=== PATIENT | female | born 1955 | race Caucasian/White ===

== ENCOUNTER → 2017-11-18 17:47 | Outpatient (CLI) | payer MEDICAID, SELFPAY ==
[2017-11-18 18:44] LABS: Amphetamine Urine VISTA NEGATIVE (<1000 ng/mL); Barbiturate Urine VISTA NEGATIVE (< 200 ng/mL); Benzodiazepine Urine VISTA NEGATIVE (< 200 ng/mL); Cocaine Urine VISTA NEGATIVE (< 300 ng/mL); Ecstacy Urine VISTA NEGATIVE (< 500 ng/mL); Methadone Urine VISTA NEGATIVE (< 300 ng/mL); PCP Urine VISTA NEGATIVE (< 25 ng/mL); THC Urine VISTA POSITIVE (< 50 ng/mL); Vista UDS pH Range 6
== END ==
PROVIDERS: Family Provider Internal Medicine; PCP Internal Medicine; Visit Provider Anesthesiology Pain Medicine
DX: F11.20 Opioid dependence, uncomplicated (principal)
CPT/HCPCS: 80307

== ENCOUNTER → 2018-11-03 16:26 | Outpatient (CLI) | payer MEDICAID, SELFPAY ==
--- NOTE | 2018-11-03 16:35 | RAD_ITS ---
HISTORY: right knee pain, no known injury COMPARISON: None FINDINGS: XR right knee 5 views No fracture, acute disease, or bony abnormality. Joint spaces appear preserved. No bony erosions. No joint effusion. Atherosclerotic calcifications at the right femoral adductor canal region. RAD/Knee 4 or More Views IMPRESSION: Atherosclerotic calcifications. Otherwise negative right knee. at 1551 Reported and signed by: Gordon Durham MD Electronically Signed: Gordon Durham, at 5:29 EST Tel , Service support ,
== END ==
PROVIDERS: Family Provider Internal Medicine; PCP Internal Medicine; Referring Provider Anesthesiology Pain Medicine; Visit Provider Anesthesiology Pain Medicine
DX: M25.561 Pain in right knee (principal)
CPT/HCPCS: 73564

== ENCOUNTER 2018-12-19 12:05 | Day surgery (SDC) | payer MEDICAID, SELFPAY ==
--- NOTE | 2018-12-16 14:39 | HP.PCM_ITS ---
History and Physical Date of Admission: 12/19/18 HISTORY AND PHYSICAL ? Henny Damian 1955 ? REFERRING PHYSICIAN: ??Sugey Owen (Madhu), A* ? CHIEF COMPLAINT:??Discuss endoscopy ? HPI: The patient is a 62 year old female referred for endoscopy. ?Henny notes a history of hemorrhoids for which she has undergone banding procedures in the past, otherwise noted?no history of colon complaints.??She denies any change in bowel habits, weight changes, blood in stools, black tarry stools or abdominal pain. ?She denies any family history of colon cancer. ?Patient's previous colonoscopy report from June 2009 is reviewed. ?She had a small hyperplastic polyp removed at that time and 10 year follow-up was recommended. ?The patient is interested in having her colonoscopy in October before her insurance changes, but notes she has not checked to see if her insurance will cover this being done several months early. ? The patient?notes a long-standing history of acid reflux, states has dealt with this for many years. ?She takes ranitidine and states this controls her symptoms fairly well. ?Patient does use tobacco, states smokes 1/2 pack of cigarettes daily. ?She denies having upper endoscopy in the past. ? Patient's past medical history is significant for chronic pain, follows with pain management. ? ? Patient was evaluated for the above recently by gastroenterology. ?She notes she was told to have an additional appointment with general surgery and to schedule the procedures at that time. ? ? PAST?MEDICAL?HISTORY w PAST MEDICAL HISTORY Diagnosis Date ? Depression ? ? GERD (gastroesophageal reflux disease) ? ? Hayfever ? ? Hemorrhoid ? ? ? PAST?SURGICAL?HISTORY PAST SURGICAL HISTORY Procedure Laterality Date ? , CLASSIC, ANTE/POST CA ? 1994 ? COLONOS W/REM POLYP SNARE ? ? polyp at 25cm ? HEMORRHOIDECTOMY,INT/EXT,COMPLX ? 03/06/10 ? PAST SURGICAL HISTORY OF ? Late ? Hernia repair ? PAST SURGICAL HISTORY OF ? 2011 ? polyp vocal cord ? THROAT SURGERY PROCEDURE UNLISTED ? 12/27/12 ? polyp vocal cord ? TOTAL ABDOM HYSTERECTOMY ? 1997 ? RIVER & LSO - benign indication (endometrial implants) - 1997 ? X-RAY LUMBAR SPINE AP & LAT ? 08/28/15 ? wch-degenerative changes ? ? CURRENT?MEDICATIONS ? Current Outpatient Prescriptions: naproxen (NAPROSYN) 500 mg tablet take 1 tablet by mouth twice a day if needed for pain and inflammation take with meals traZODone (DESYREL) 100 mg tablet take 1 tablet by mouth at bedtime ranitidine (ZANTAC) 150 mg tablet take 1 tablet by mouth twice a day tiZANidine (ZANAFLEX) 4 mg tablet Take 1 tablet by mouth every 8 hours as needed (muscle spasms). pravastatin (PRAVACHOL) 10 mg tablet Take 1 tablet by mouth once daily. citalopram (CELEXA) 40 mg tablet Take 1 tablet by mouth once daily. (Patient not taking: Reported on 09/16/2018 ) acetaminophen (TYLENOL) 325 mg tablet Take 650 mg by mouth every 6 hours as needed. traMADol (ULTRAM) 50 mg tablet Take 1 tablet by mouth every 4 hours as needed for Pain. ? No current facility-administered medications for this visit.? ? ALLERGIES:?Doxycycline Hcl ? PERSONAL HISTORY:? SOCIAL?HISTORY Social History ??Marital status: ?Spouse name: ?Years of education: 12 ?Number of children: 1 ? Occupational History Occupation ?Employer ?Comment ?[employer] ??? MAID ?[employer] ? Social History Main Topics ??Smoking status: Current Every Day Smoker ?Packs/day: 0.50 ?Years: 30.00 ?Types: Cigarettes ??Smokeless tobacco: Never Used ?Alcohol use: No ?Drug use: No ?Sexual activity: Not Currently ? FAMILY HISTORY:? FAMILY?HISTORY FAMILY HISTORY Problem Relation Age of Onset ? Diabetes Mother ? ? other (IA) Mother ? ? other (IA) Father ? ? COPD Sister ? ? Emphysema Sister ? ? REVIEW OF SYMPTOMS: ??The review of systems data was entered by the nurse and reviewed by me ? Nursing Notes: Cesar Virgen LPN ?09/20/2018 ?7:30 AM ?Signed REVIEW OF SYSTEMS: ?General:???The patient denies fatigue, denies weight loss, denies weight gain, denies feeling hot, and denies feelings of cold. ?Eyes: ?The patient denies glaucoma, denies eye injury/surgery, does not wear glasses or contacts. ?Ear/Nose/Throat: ?The patient denies allergies, NOTES hayfever, denies ear infections, and denies bloody noses. ?Cardiovascular: ?The patient denies chest pain, denies heart disease, denies high blood pressure,denies cardiac stent, denies prior heart attack, denies irregular heart beat, NOTES high cholesterol, ?denies poor circulation, denies heart failure, other cardiac issues, denies claudication, denies cold feet, denies peripheral arterial stent. ?Respiratory: ?The patient denies tuberculosis, denies pneumonia, denies frequent cough, denies pulmonary embolism, denies shortness of breath, and denies coughing up blood. ?Gastrointestinal: ?The patient denies difficulty swallowing, NOTES acid reflux, denies ulcers, denies vomiting, denies jaundice/hepatitis, denies gallbladder problems, denies black or tarry stools, NOTES hemorrhoids, denies bleeding from rectum, denies diverticulitis, denies constipation, denies diarrhea, denies loss of stool control, and NOTES hernias. ?Kidney/Bladder: ?The patient denies kidney stones, denies urine infections, and denies bloody urine. ?Skin: ?The patient denies a history of skin cancer, denies bleeding/changing moles, and denies a history of skin rash. ?Neurologic: ?The patient denies a history of epilepsy/convulsions, denies headaches, denies head/spinal injuries, and denies stroke/TIA. ?Psychiatric: ?The patient denies psychiatric medications, NOTES depression, and denies voices, denies substance abuse. ?Endocrine: ?The patient denies thyroid disorders, denies diabetes, and denies hormonal problems. ?Hematologic: ?The patient denies a history of bruising, denies bleeding, and denies anemia, denies blood clots. ?Infections: ?The patient denies a history of measles and mumps, denies rheumatic fever, and denies sexually transmitted diseases. ?Musculoskeletal: ?The patient denies back pain/injury, NOTES back problems, denies sciatica, denies knee/foot trouble, denies arthritis, or denies gout. ? ? When was patient's last Mammogram screening? 11/28 ? ?Last Colonoscopy: ?06/19 ? Cesar Virgen LPN? I have confirmed and edited as necessary, the PFSH and ROS obtained by others. ? ? PHYSICAL EXAMINATION: ? General: ?The patient is 62 year old female, well nourished, well hydrated in no acute distress. ?The patient is oriented to time, place, and person. ? VITALS:?There were no vitals taken for this visit.?There is no height or weight on file to calculate BMI.? ? HEENT: ?Normal cephalic, ataumatic, pupils are equally round, sclera are anicteric, mucous membranes are moist, oropharynx is clear. ?Neck has no masses, asymmetry or lymphadenopathy. ? ? Respiratory: ?Clear to auscultation and percussion. ?Normal respiratory excursion and pattern. ? Cardiac: ?Examination is regular rate and rhythm. ? Abdominal exam: ?Soft, nontender, ?with no palpable masses. ?No hepatosplenomegaly. ?No palpable hernias. ? Rectal exam:?exam deferred ? Extremities: ?no clubbing, cyanosis or edema. ?No adenopathy. ? LABORATORY VALUES: As Noted ? RADIOLOGIC STUDIES: ?As Noted ? ? Assessment ? IMPRESSION:?encounter for screening colonoscopy. ?GERD and abdominal bloating- recommend EGD in addition to colonoscopy ? PLAN:??We will plan for upper and lower endoscopy.??We discussed the risks and benefits of the planned endoscopy. ?I have informed the patient that compli cations can occur including failure to complete the endoscopy and perforation. ?The patient had the opportunity to ask questions concerning the planned endoscopy. ?My staff has also explained the procedure to the patient in understandable terms and has given the patient printed material concerning the procedure. ?The patient freely consents to surgery. ? I plan to use golytely bowel preparation for endoscopy ? I plan for monitored anesthetic care. ? Diagnoses:?(Z12.11) Encounter for screening for malignant neoplasm of colon ?(primary encounter diagnosis) (K21.9) Gastroesophageal reflux disease, esophagitis presence not specified (R14.0) Abdominal bloating ? My findings have been communicated to?Eunice Owen CNP?via shared medical record. ?This note will be forwarded to Dr. BROOK HORNER MD. ?? Return to Clinic: The patient is instructed to follow-up with me?1 week post operatively. ? ? Anisha Lindsey PA-C
[2018-12-19 12:29] VITALS: BP 141/58; PULSE 87; RESP 16; TEMP 36.3; O2SAT 97; BMI 24.0
--- NOTE | 2018-12-19 13:30 | EGD_PTH ---
PATIENT: JOVI HILL LOC: EN U#:[id number] AGE/SX: 63/F ROOM: RE12/19/[address]: Dr. Federico Hall MD : 1955 BED: DIS: 12/19/2018 SPEC #: [id number] RECD: 12/19/18 17:10 STATUS: STEPHON ASIYA #: [id number] GERALD: 12/19/18 13:[address]: Federico Hall DEPT: SURGICAL PATHOLOGY RECD BY: Ga Snow ENTERED: 12/20/18 07:56 SP TYPE: EGD BIOPSY OTHR DR: Dr. Toña Rai MD Tissues: A - Gastric mucous membrane B - Esophageal mucous membrane Procedures: Special Stain Group II Surgery Specimen Level IV Alcian Blue/PAS (control) HEADER OPERATION: Colonoscopy, EGD ([facility]) PRE-OP DIAGNOSIS: GERD, abdomen bloating, screening for colon TISSUE SUBMITTED: A - Antrum biopsy for H. pylori and path, B - Distal esophagus biopsy; esophagitis, rule out Jimenes's MICROSCOPIC DIAGNOSIS A. Antrum biopsy: Mild gastritis. See microscopic description and comment. B. Distal esophagus, biopsy: A fragment of gastroesophageal mucosa with changes consistent with gastroesophageal reflux disease and chronic inflammation. Intestinal metaplasia (goblet cell metaplasia) is not identified. See comment. SJ:rg 12/21/18 COMMENT A. The results of immunohistochemistry for Helicobacter pylori will be reported separately ([id number]). B. Alcian blue/PAS stain with matched control is used in the evaluation of the specimen. MICROSCOPIC DESCRIPTION Slides are reviewed. A. The specimen shows fragments of gastric mucosa with chronic inflammatory cell infiltrates in the lamina propria consisting of lymphocytes and plasma cells, consistent with mild chronic gastritis. GROSS DESCRIPTION A - Received in fixative is one container labeled with the patient's name and designated antrum biopsy. The specimen consists of one irregular fragment of light hernandez soft tissue that measures 0.3 x 0.2 x 0.1 cm. The specimen is totally submitted in one cassette. B - Received in fixative is one container labeled with the patient's name and designated distal esophagus biopsy. The specimen consists of one irregular fragment of light hernandez soft tissue that measures 0.3 x 0.3 x 0.1 cm. The specimen is totally submitted in one cassette. / MEHDI:jordy 12/20/18 TC:3 CPT: 56236 x2, 81022
--- NOTE | 2018-12-19 13:30 | IMM_PTH ---
PATIENT: JOVI HILL LOC: EN U#:[id number] AGE/SX: 63/F ROOM: RE12/19/[address]: Dr. Federico Hall MD : 1955 BED: DIS: 12/19/2018 SPEC #: [id number] RECD: 12/20/18 12:17 STATUS: STEPHON REQ #: [id number] GERALD: 12/19/18 13:[address]: Federico Hall DEPT: IMMUNOHISTOCHEMISTRY RECD BY: Marcia Hou ENTERED: 12/20/18 12:18 SP TYPE: IMMUNO OTHR DR: Dr. Toña Rai MD Tissues: A - Stomach, NOS Procedures: H Pylori (initial) PHYSICIAN & INSTITUTION [place] [id number] SPECIMEN INFORMATION: Tissue Source: A - Antrum biopsy Clinical Info: GERD, abdomen bloating, screening Specimen Number: [id number] CPT code: 16173 METHODOLOGY: Deparaffinized sections of prefer/formalin-fixed tissue or PAP/DQ stained slides are incubated with monoclonal/polyclonal antibodies/oligonucleotide probes. Localization is made via biotin free immunoperoxidase method. Appropriate controls are performed and reacted as expected. Results on target cell population are indicated in the following table: RESULTS: ANTIBODY / CLONE RESULT Block A H Pylori (polyclonal) negative These tests were developed and their performance characteristics determined by [facility]. They may not have been cleared or approved by the U.S. Food and Drug Administration. The FDA has determined that such clearance or approval is not necessary. INTERPRETATION: A. Antrum biopsy: Negative for Helicobacter pylori organisms. SJ:jordy 12/21/18
[2018-12-19 15:35] VITALS: BP 107/79; BP 141/58; PULSE 75; RESP 16; TEMP 36.2; O2SAT 98
--- NOTE | 2018-12-19 15:37 | OP.ENDO_ITS ---
12/19/2018 Toña Rai [address] [id number] Re : Upper GI endoscopy procedure for Henny Damian Dear Dr. Rai This procedure was performed on Wednesday, December 19, 2018. My impressions and recommendations are as follows: Impressions : - Normal examined jejunum. - Normal. - Gastritis. Biopsied. - Mildly severe reflux esophagitis. Rule out Jimenes's esophagus. Biopsied. - Small hiatal hernia. Recommendations : - Await pathology results. - Return to physician dental office assistant in 1 week. - Continue present medications. My findings are described in the full procedure note, which is enclosed. If I can be of further assistance, please feel free to contact me at Doctor phone number(s): , Work: . Sincerely, Federico Hall MD 12/19/2018 3:36:54 PM This report has been signed electronically.
--- NOTE | 2018-12-19 15:39 | OP.ENDO_ITS ---
12/19/2018 Toña Rai [address] [id number] Re : Colonoscopy procedure for Henny Damian Dear Dr. Rai This procedure was performed on Wednesday, December 19, 2018. My impressions and recommendations are as follows: Impressions : - The entire examined colon is normal on direct and retroflexion views. - No specimens collected. Recommendations : - Discharge patient to home. - Resume previous diet. - Continue present medications. - Repeat colonoscopy in 10 years for screening purposes. My findings are described in the full procedure note, which is enclosed. If I can be of further assistance, please feel free to contact me at Doctor phone number(s): , Work: . Sincerely, Federico Hall MD 12/19/2018 3:38:22 PM This report has been signed electronically.
[2018-12-19 15:40] VITALS: BP 123/50; BP 141/58; PULSE 74; RESP 16; O2SAT 97
[2018-12-19 15:45] VITALS: BP 139/56; BP 141/58; PULSE 72; RESP 16; O2SAT 96
[2018-12-19 15:49] VITALS: BP 128/61; BP 141/58; PULSE 78; RESP 16; TEMP 36.2; O2SAT 96
[2018-12-19 16:30] VITALS: BP 141/58
== END 2018-12-19 16:30 | disposition home or self-care (01) ==
LOC: EN 12:05 → AC 12:07
PROVIDERS: Family Provider Internal Medicine; PCP Internal Medicine; Referring Provider Surgery; Visit Provider Surgery
PROC: 0DJD8ZZ Inspection of Lower Intestinal Tract, Via Natural or Artificial Opening Endoscopic (ICD-10-PCS; CPT 45378; principal; 2018-12-19 13:25)
DX: K21.0 Gastro-esophageal reflux disease with esophagitis (principal); K29.70 Gastritis, unspecified, without bleeding; K44.9 Diaphragmatic hernia without obstruction or gangrene; Z12.11 Encounter for screening for malignant neoplasm of colon; R10.13 Epigastric pain; R14.0 Abdominal distension (gaseous); E78.00 Pure hypercholesterolemia, unspecified; F32.9 Major depressive disorder, single episode, unspecified; F17.210 Nicotine dependence, cigarettes, uncomplicated; Z79.899 Other long term (current) drug therapy
CPT/HCPCS: 43239; 45378; 88305; 88313; 88342; J7120

== ENCOUNTER → 2018-12-22 17:26 | Outpatient (CLI) | payer MEDICAID, SELFPAY ==
[2018-12-19 12:29] VITALS: BMI 24.0
[2018-12-22 18:58] LABS: Amphetamine Urine VISTA NEGATIVE (<1000 ng/mL); Barbiturate Urine VISTA NEGATIVE (< 200 ng/mL); Benzodiazepine Urine VISTA NEGATIVE (< 200 ng/mL); Cocaine Urine VISTA NEGATIVE (< 300 ng/mL); Ecstacy Urine VISTA NEGATIVE (< 500 ng/mL); Methadone Urine VISTA NEGATIVE (< 300 ng/mL); PCP Urine VISTA NEGATIVE (< 25 ng/mL); THC Urine VISTA POSITIVE (< 50 ng/mL); Vista UDS pH Range 6
== END ==
PROVIDERS: Family Provider Internal Medicine; PCP Internal Medicine; Referring Provider Anesthesiology Pain Medicine; Visit Provider Anesthesiology Pain Medicine
DX: F11.20 Opioid dependence, uncomplicated (principal)
CPT/HCPCS: 80307

== ENCOUNTER 2019-01-11 17:00 | Outpatient (RCR) | payer MEDICAID, SELFPAY ==
--- NOTE | 2019-01-04 17:55 | HP.PTEVAL ---
Patient's Visit Information JOVI HILL is a 63 year old F referred to Physical Therapy by Simone Arreola MD with a diagnosis of BACK AND LEG PAIN. Date of Evaluation: 01/04/19 Physical Therapist: Brandee Bullard PT, Cert MDT - Visit Plan Frequency: 2-3x /Week Duration: 4-6 Weeks Plan: AQUATIC THERAPY FOR PAIN RELIEF, POSTURE CORRECTION/STRENGTHENING, INSTRUCTION IN APPROPRIATE BODY MECHANICS AND ACTIVITY MODIFICATIONS. DLS STARTING WITH A NEUTRAL SPINE PROGRESSING ROM TOLERATED. CRYSTAL LE ROM, STRETCHING AND STRENGTHENING. HEP INSTRUCTION. PATIENT IS RELUCTANT TO TRY WATER THERAPY BUT AGREEABLE TO TRIAL. 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 Disability: NO. Present symptoms: LOW BACK AND CRYSTAL LE PAIN ALL THE WAY DOWN LEGS TO TOES AND RIGHT IS WORSE THAN LEFT. CHIKI HORSES MAINLY AT NIGHT. CRYSTAL LE NUMBNESS AND TINGLING. Present since: ABOUT 3-4 YEARS. Pain Scale: WORSE 9/10, LEAST 3/10. Currently: 8/10. Commenced as a result of: VACUUMING AND MOPPING. Symptoms at onset: LOW BACK. Worse: MY JOB, PROLONGED WALKING, LIFTING, PROLONGED SITTING. Better: RESTING. Disturbed sleep: YES - IF CHIKI HORSES. Previous history/Previous treatment: PHYSICAL THERAPY IN THE PAST ABOUT 2 OTHER TIMES. PT TO YEARS AGO WITH NO EFFECT - LIMITED BY RIGHT SHOULDER AT THAT TIME PER PATIENT REPORT. JANNETTE'S EVERY THREE MONTHS X 2 YEARS - LAST ONE WAS LAST MONTH. TRAMADOL. NO CHIROPRACTIC. NO BACK SURGERY. Coughing/sneezing/straining: NO. Gait: SLOW AND SOMETIMES LIMPING RIGHT LEG. SOMETIMES PAIN. DISTANCE LIMITED. Difficulty initiating urinatin: NO. Accidents: NO. Unexplained weight loss: NO. Imaging: NONE RECENT. NO MRI. PREVIOUS LUMBAR X-RAYS - ARTHRITIS AND SPURS. PMH: SMOKER - ONE PACK A DAY. REFLUX. SLEEPING PILL, HIGH CHOLESTEROL. NO CANCER. NO HEART DZ. NO STROKE. NOT DIABETIC. Recent major surgery: NO. OTHER: PATIENT REPORTS SHE REALLY DOESN'T WANT TO HAVE THERAPY BUT THE DOCTOR TOLD HER SHE HAS TO. SHE STATES SHE AGREED TO GIVE IT A TRY. STATES SHE THINKS THE INSURANCE REQUIRES IT FOR THE SHOTS. STATES SHE TOLD HIM SHE HAS BEEN THROUGH THERAPY BEFORE AND IT DIDN'T HELP. - Objective Sitting/Standing Posture: POOR. Lordosis: REDUCED. Active Correction of posture: WORSE. Other Observations: INDEP GAIT INTO PT WITH DECREASED CADANCE, LIMP ON RIGHT LE AND NO ASSISTIVE DEVICES. INCRASED TRUNK FLEXION. Motor deficit: CRYSTAL LE'S 5/5 WITH MMT'ING EXCEPT HIPS GRADED 4/5. Sensory deficit: CRYSTAL LE LIGHT TOUCH SENSATION INTACT AND SYMMETRICAL. ROM deficit: TIGHT CRYSTAL HIP FLEXORS, HSS'S (RIGHT > LEFT) AND MILDY IN GASTROC SOLEUS COMPLEX'S. Reflexes: 2/3 CRYSTAL LE'S. Dural Signs: POSITIVE RIGHT LE. Lumbar mvmt loss: flex - NIL. ext - MEGAN. R SG - MOD. L SG - MOD. PATIENT WITH C/O INCREASED PAIN WITH CRYSTAL SG TESTING AND EXTENSION TESTING. Core strength: POOR. Palpation: NO ACUTE TENDERNESS WITH PALPATION OF LOWER THORACIC OR LUMBAR SPINE. INCREASED MUSCLE TONE CRYSTAL PARASPINALS. OTHER: PATIENT DOES NOT TOLERATE LUMBAR SUPPORT IN SITTING WELL. PATIENT HAS DECREASED KNOWLEGE OF PROPER POSTURE CONTROL AND BODY MECHANICS AND WORK IS VERY PHYSICAL. - Goals Goal 1:: DECREASE C/O BACK AND LEG PAIN Goal Time Frame: 4-6 Weeks Goal 2:: IMPROVE LIFTING, WALKING, SITTING, STANDING, SOCIAL LIFE, TRAVEL AND HOMEMAKING FUNCTION Goal Time Frame: 4-6 Weeks Goal 3:: INSTRUCT IN PROPHYLAXIS Goal Time Frame: 4-6 Weeks - Rehabilitation Potential Rehabilitation Potential: Fair - Anticipated Interventions Patient/Client Instruction: Educate patient on: Condition, Plan of Care, Risk Factors, Benefits of Fitness Program For the Purpose of:: To improve self management Therapeutic Exercise to Include: Strength training, Body mechanics, Postural training, Flexibilty training, Gait and locomotor training, Active ROM, Dynamic Lumbar Stabilization For the Purpose of:: To improve muscle performance and motor function, To increase tolerance to activity/condition/position, To improve ability of physical actions for home/community/work/leisure, To improve gait and locomotor functions Thank you for the opportunity to evaluate your patient. For Medicare and Medicare HMO plans, please review the plan of care and approve it. It will need to be FAXED BACK to us at [phone] for Medicare purposes. For Medicare only, by signing this I certify the plan of care. Please let me know if there are questions or concerns regarding this plan of care. Physician Signature: Date:
--- NOTE | 2019-03-20 16:49 | HP.PTDCSUM ---
HP - PT D/C Summary It has been my pleasure to treat JOVI HILL under orders from Simone Arreola MD, for the diagnosis of BACK AND LEG PAIN for a total of 2 visit(s). Discharge Date: Please see the following information for a summary of their discharge status. - Subjective Subjective: PATIENT REPORTS SHE CAN HARDLY STAND THE PAIN BY THE TIME SHE GETS HOME FROM WORK. - Pain LOW BACK Pain Intensity (Out of 10): 7 HIP Pain Intensity (Out of 10): 7 RIGHT THIGH Pain Intensity (Out of 10): 7 LEFT THIGH Pain Intensity (Out of 10): 7 RIGHT LEG Pain Intensity (Out of 10): 4 LEFT LEG Pain Intensity (Out of 10): 4 FEET Pain Intensity (Out of 10): 0 - Objective Objective/Function: PATIENT DEMONSTRATED AND COMMUNICATED A GOOD UNDERSTANDING OF ALL INSTRUCTIONS GIVEN BY CONCLUSION OF SESSION BUT ANTICIPATE THAT REINFORCEMENT WILL BE NEEDED. - Goals Goal 1:: DECREASE C/O BACK AND LEG PAIN Goal 2:: IMPROVE LIFTING, WALKING, SITTING, STANDING, SOCIAL LIFE, TRAVEL AND HOMEMAKING FUNCTION Goal 3:: INSTRUCT IN PROPHYLAXIS - Plan Plan: AQUATIC THERAPY FOR PAIN RELIEF, POSTURE CORRECTION/STRENGTHENING, INSTRUCTION IN APPROPRIATE BODY MECHANICS AND ACTIVITY MODIFICATIONS. DLS STARTING WITH A NEUTRAL SPINE PROGRESSING ROM TOLERATED. CRYSTAL LE ROM, STRETCHING AND STRENGTHENING. HEP INSTRUCTION. PATIENT IS RELUCTANT TO TRY WATER THERAPY BUT AGREEABLE TO TRIAL. - D/C Information If there are questions or concerns regarding this patient's physical therapy, please feel free to call me at [phone]. Thank you for the referral of this patient. Sincerely, Brandee Bullard, PT, Cert MDT
--- NOTE | 2019-03-20 16:55 | HP.PT.NRP ---
HP - Discharge Summary (1) - Patient Information JOVI HILL was seen in my office for initial evaluation on 01/04/19. The following Plan of Care was established for this patient: Initial Frequency: 2-3x /Week Initial Duration: 4-6 Weeks - Anticipated Interventions Patient/Client Instruction: Educate patient on: Condition, Plan of Care, Risk Factors, Benefits of Fitness Program For the Purpose of:: To improve self management Therapeutic Exercise to Include: Strength training, Body mechanics, Postural training, Flexibilty training, Gait and locomotor training, Active ROM, Dynamic Lumbar Stabilization For the Purpose of:: To improve muscle performance and motor function, To increase tolerance to activity/condition/position, To improve ability of physical actions for home/community/work/leisure, To improve gait and locomotor functions This patient was last seen in our office 01/11/19. Pertinent comments regarding their Physical therapy will appear below: This patient has not returned to Physical Therapy and is appropriate to return to MD for further follow-up as needed. At this point I will be discontinuing this patient from physical therapy. I would be happy to see this patient again in the future if found appropriate by the physician. Thank you! Brandee Bullard, PT, Cert MDT
== END 2019-01-11 19:00 | disposition home or self-care (01) ==
LOC: PT 17:00
PROVIDERS: Family Provider Internal Medicine; PCP Internal Medicine; Referring Provider Anesthesiology Pain Medicine; Visit Provider Anesthesiology Pain Medicine
DX: M54.9 Dorsalgia, unspecified (principal); M79.606 Pain in leg, unspecified; M54.5 Low back pain
CPT/HCPCS: 97162; 97530

== ENCOUNTER → 2019-09-05 16:55 | Outpatient (CLI) | payer MEDICAID, SELFPAY ==
--- NOTE | 2019-09-05 16:58 | RAD_ITS ---
HISTORY: PATIENT STATES LOWER BACK/SCIATICA PAIN RADIATING INTO BOTH LEGS. EXAMINATION/TECHNIQUE: XR Spine Lumbar 3 Views: COMPARISON: 05/29/2016 FINDINGS: Mild lumbar dextroscoliosis with the apex of curve at the L3 level. Lumbar vertebra are normal in height. No fracture or acute osseous abnormality. L2-3 through L5-S1 disc space narrowing accompanied by vacuum disc phenomenon at multiple levels. Multilevel mild endplate spurring. At the L3-4 level, degenerative disc disease and spondylosis has progressed compared to the 2016 exam. Lower lumbar facet joint arthritis with minor anterolisthesis of L4 on L5. The SI joints appear preserved. The abdominal aorta is atherosclerotic. RAD/Lumbar Spine 2 or 3 Views IMPRESSION: 1. No fracture or acute osseous abnormality. 2. Multilevel degenerative changes and with progression of degenerative disc disease and spondylosis at the L3-4 level with comparison to the 2015 exam. at 1775 Reported and signed by: Gordon Durham MD Electronically Signed: Gordon Durham, at 23:23 EST Tel , Service support ,
== END ==
PROVIDERS: Family Provider Internal Medicine; PCP Internal Medicine; Referring Provider Anesthesiology Pain Medicine; Visit Provider Anesthesiology Pain Medicine
DX: M54.9 Dorsalgia, unspecified (principal)
CPT/HCPCS: 72100

== ENCOUNTER → 2019-09-22 10:29 | Outpatient (CLI) | payer MEDICAID, SELFPAY ==
--- NOTE | 2019-09-22 10:34 | STEWCON_ITS ---
Reason For Study: Left Arm Pain; Chest Pain Stress Results Protocol: Dobutamine Stress Echo With Definity Maximum Predicted HR: 157 bpm Target HR: 133 bpm % Maximum Predicted HR: 115 % Heart Stage Duration Rate BP Comment (mm:ss) (bpm) Baseline 63 114/70No Chest Pain; 5 ML Diluted Definity Given DSE 10 MCG 3:00 68 139/62No Chest Pain DSE 20 MCG 3:00 105 133/78No Chest Pain DSE 30 MCG 3:00 129 144/63No Chest Pain DSE 40 Moderate Chest Pressure After Heart Rate Elevated to 181; SVT vs MCG 3:18 181 152/60Atrial Fibrillation No Chest Pain; See Progress Notes; Metoprolol 5 MG Given IVP at 1127; Recovery 57 124/56Diltiazem 20 MG Given IVP at 1200; Patient Remains in Atrial Fibrillation Stress Duration: 12:18 mm:ss Maximum Stress HR: 181 bpm METS: 1 Baseline Echocardiogram Findings Stress Echo Wall motion Data Resting WM Intermediate WM Stress WM Resting Wall Motion Wall Motion Int. Wall Motion Stress All segments Normal. All segments Hyperkinetic. All segments Hyperkinetic. Ejection Fraction 55 %. Ejection Fraction 65 %. Ejection Fraction 75 %. Stress Results Heart rate response: Target heart rate achieved Arrhythmias: PACs/PSVT during infusion; PACs/PSVT/paroxysmal atrial fibrillation-flutter during recovery; occasional PVC during recovery Stopped secondary to: Target heart rate achieved. EKG Data Baseline ECG: Normal Sinus Rhythm. Peak pharmacologic ECG: Nonspecific [id number] ST segment variability nonspecific [id number] ST segment variability. Symptoms with Stress The patient noted chest discomfort/pressure during episodes of PSVT with subsequent spontaneous resolution. Interpretation Summary 1. Technically difficult study 2. Contrast injection performed 3.Negative (Adequate) Dobutamine Stress Echocardiogram Comment: The patient was noted to have the aforementioned cardiac dysrhythmias during dobutamine infusion and recovery. The patient was subsequently evaluated and treated with metoprolol tartrate 5 mg IV push x1 and subsequently diltiazem 20 mg IV push x1. The patient had slowing of her cardiac rate but remained in atrial fibrillation. The patient appeared to be symptomatically and hemodynamically stable. The patient was offered cardiovascular consultation for further evaluation and care. The patient accepted and was subsequently evaluated with plans for continued medical management with diltiazem CD 120 mg p.o. daily, anticoagulant therapy with apixaban 5 mg p.o. twice daily, and continued cardiac rhythm monitoring with a 48-hour Holter monitor, with plans for additional evaluation and care as deemed appropriate. The aforementioned information was conveyed to the patient's PCP office. Ordering Physician: Toña Rai Referring Physician: Surinder Mar M.D. Performed By: Katey Gupta, JOANIE, RVT
== END ==
PROVIDERS: Family Provider Internal Medicine; PCP Internal Medicine; Referring Provider Internal Medicine; Visit Provider Internal Medicine
DX: I48.91 Unspecified atrial fibrillation (principal); M79.602 Pain in left arm; R06.09 Other forms of dyspnea
CPT/HCPCS: 93017; 93225; 93226; 93350; J7040; Q9957; A4216; C8928

== ENCOUNTER → 2019-12-08 13:17 | Outpatient (CLI) | payer MEDICAID, SELFPAY ==
[2019-11-24 10:33] VITALS: BMI 24.9
--- NOTE | 2019-12-08 13:17 | ECHOD_ITS ---
Reason For Study: AFIB Procedure This was a 2D Doppler, Color Flow transthoracic echocardiogram. The exam was of adequate technical quality. Exam performed in department. Left Ventricle Normal left ventricle. Left ventricular systolic function is normal. The estimated ejection fraction is 65 %. No evidence for diastolic dysfunction. No regional wall motion abnormalities noted. Right Ventricle Normal RV size. Normal systolic function. Atria Normal left atrium. Normal right atrium. No doppler evidence for ASD. Mitral Valve There is no mitral annular calcification. Normal mitral valve. Trivial mitral valve insufficiency. Tricuspid Valve Normal tricuspid valve. Trivial tricuspid valve insufficiency. Right ventricular systolic pressure estimated to be 27 mmHg. Aortic Valve Trisinus/trileaflet aortic valve. Normal aortic valve. Pulmonic Valve The pulmonic valve is not well visualized. Great Vessels Normal sized aortic root. Pericardium/Pleural No pericardial effusion. MMode/2D Measurements & Calculations LVIDd: 4.5 cm IVSd: 0.85 cm Ao root diam: 2.8 cm LVIDs: 2.9 cm LVPWd: 0.91 cm RVDd: 3.5 cm FS: 36.2 % LAV(MOD-bp): 37.9 ml LA A4 area: 14.5 cm2 LA dimension(2D): 3.5 cm LAV(MOD-bp) Indexed: 22.5 ml/m2 LAV(MOD-sp2): 40.1 ml LAV(MOD-sp4): 35.0 ml RA A4 area: 14.0 cm2 Time Measurements MV dec time: 0.24 sec Doppler Measurements & Calculations MV E max jimenez: 69.5 cm/sec Lat Peak E' Jimenez: 10.4 cm/sec Med Peak E' Jimenez: 6.7 cm/sec MV A max jimenez: 84.2 cm/sec E/E' lat: 6.7 E/E' med: 10.4 MV E/A: 0.83 Ao V2 max: 146.2 cm/sec LV V1 max: 110.9 cm/sec TR max jimenez: 243.8 cm/sec Ao max P.6 mmHg LV V1 max P.9 mmHg TR max P.8 mmHg Interpretation Summary Left ventricular systolic function is normal. The estimated ejection fraction is 65 %. Trivial mitral valve insufficiency. Trivial tricuspid valve insufficiency. Right ventricular systolic pressure estimated to be 27 mmHg. No evidence for diastolic dysfunction. Ordering Physician: Rowena Santamaria/Surinder Mar Referring Physician: BROOK HORNER Performed By: Jo Ann Carter, JOANIE, RVT
== END ==
PROVIDERS: PCP Internal Medicine; Referring Provider Physician Assistant Medical; Visit Provider Physician Assistant Medical
DX: I48.0 Paroxysmal atrial fibrillation (principal); E78.2 Mixed hyperlipidemia
CPT/HCPCS: 93271; 93306

== ENCOUNTER 2020-05-14 07:16 | Day surgery (SDC) | payer MEDICAID, SELFPAY ==
[2019-11-24 10:33] VITALS: BMI 24.9
[2020-05-03 10:37] VITALS: BMI 26.4
--- NOTE | 2020-05-03 11:25 | HP_ITS ---
HPI HPI History of Present Illness Surgical H&P: Yes Details: This is a 64-year-old female that presents here today for a cardiovascular follow-up of a dobutamine stress echo in which she developed cardiac ectopy of PACs, PSVT, paroxysmal atrial fibrillation/flutter and PVCs and subsequently a 30-day event monitor demonstrating concerns of wide-complex tachycardia with concerns of atrial fibrillation with aberrancy versus ventricular tachycardia. As you recall, her dobutamine stress echo was negative for ischemia. Her PSVT, paroxysmal atrial fibrillation/flutter during the recovery phase was treated IV metoprolol and IV diltiazem however she remained in atrial fibrillation. She did convert on her own to sinus rhythm. She did have a 48-hour Holter monitor which demonstrated sinus rhythm with rare PVCs. She subsequently underwent a 30-day ambulatory event monitor. She had sinus rhythm with PACs. She also had wide-complex tachycardia with concerns of atrial fibrillation with aberrancy versus ventricular tachycardia. Based upon her cardiovascular risk factors and her findings she was asked to be considered for further evaluation with diagnostic cardiac catheterization to more definitively evaluate her coronary anatomy. However this was placed on hold secondary to the coronavirus pandemic. She presents today for follow-up. She states she has not sensed any obvious palpitations or rapid rates but she states she did not sense them initially. She has not had any new concerning chest discomfort or difficulty breathing. There is been no orthopnea or PND or peripheral pitting edema. She denies any syncope. She has been taking her medications as prescribed. She had an ECG in the office. She had sinus bradycardia with a ventricular rate of approximately 49 bpm with no acute ECG changes. She states that she would like to proceed with a diagnostic cardiac catheterization as she wants to know whether she truly has underlying CAD as both her parents did at young ages in their 40s and 50s and required further cardiac care. Intake Vital Signs 05/03/20 Height 5 ft 3 in 05/03/20 Weight: 149 lb 05/03/20 BMI 26.4 05/03/20 BP 121/64 H 05/03/20 Blood Pressure Location Lt brachial 05/03/20 Position Sitting 05/03/20 Respiration 18 05/03/20 Pulse 51 L 05/03/20 Pulse Source Monitor 05/03/20 Pulse Oximetry (%) 95 Intake Visit Reasons: 6 M FU Feature Writer Required: No Accompanied by: None Is patient in pain?: No Allergies doxycycline Adverse Reaction (Unknown, Verified 05/03/20 10:37) Unknown Medications Pravastatin Sodium 10 mg PO QHS 12/13/18 [History Confirmed 05/03/20] traZODone [Desyrel] 100 mg PO QHS 12/13/18 [History Confirmed 05/03/20] pantoprazole 40 mg tablet,delayed release 40 mg PO DAILY 09/22/19 [History Confirmed 05/03/20] sertraline 50 mg tablet 50 mg PO DAILY 09/22/19 [History Confirmed 05/03/20] apixaban 5 mg tablet 5 mg PO BID #60 tab 11/24/19 [Rx Confirmed 05/03/20] biotin 1 mg capsule 1 mg PO DAILY 11/24/19 [History Confirmed 05/03/20] hydrocodone 5 mg-acetaminophen 325 mg tablet 1 tab PO BID PRN 11/24/19 [History Confirmed 05/03/20] tizanidine 4 mg capsule 4 mg PO BID PRN cap 11/24/19 [History Confirmed 05/03/20] metoprolol succinate 50 mg tablet,extended release 24 hr 50 mg PO DAILY #30 tab 12/13/19 [Rx Confirmed 05/03/20] clopidogrel 75 mg tablet 75 mg PO DAILY #30 tab 05/03/20 [Rx Confirmed 05/03/20] multivitamin 1 tab PO DAILY 05/03/20 [History Confirmed 05/03/20] PFSH Social History (Updated 05/03/20 @ 11:[address] Surinder Mar MD) Smoking Status: Current every day smoker alcohol intake: current alcohol intake frequency: holidays/special occasions only substance use type: marijuana caffeine: Yes Type: carbonated beverages Number of servings: 3, coffee Number of servings: 3 ROS Const Const: Negative for fatigue, weakness, headache(s), frequent falls, night sweats, daytime sleepiness or excessive sweating Eyes Eyes: Negative for blind spots, loss of peripheral vision, transient loss of vision, blurry vision or double vision ENT ENT: Negative for headache(s), dizziness, Nosebleed/epistaxis, balance problems, lip swelling or tongue swelling Cardio Chest Pain: No Palpitations: No Edema: None Muscle aches with walking: None Resp Respiratory: Negative for SOB with activity, SOB at rest, SOB orthopnea\SOB lying down, Cough or paroxysmal nocturnal dyspnea GI GI: Negative nausea, vomiting, heartburn, bright, red blood in stools or black,tarry stools : Negative for hematuria Musc Musc: Negative for muscle aches/ myalgia, muscle weakness, joint pain or balance problems Skin Skin: Negative non-healing lesions, rash or unusual bruising Neuro Neuro: Negative for dizziness, lightheadedness, orthostatic symptoms, frequent falls, headache(s), weakness, blurry vision, double vision or lack of coordination Margarito Hematologic/Lymphatic: Negative for easy bleeding or easy bruising Endo Endo: Negative for fatigue, cold intolerance, heat intolerance, excessive sweating, increased thirst/drinking or hair loss Psych Psych: Negative for anxiety or depression Allergy Allergy/Immunology: Negative for throat swelling, Negative for tongue swelling, Negative for hives, Negative for rash, Negative for lip swelling Cardiology Exam Const Appearance: cooperative, healthy appearing, comfortable, no acute distress, well developed and well groomed Nutritional Appearance: overweight Orientation: alert, awake and oriented x3 Head Head: normal to inspection, normocephalic and atraumatic Ears: hearing grossly normal bilaterally Nose: external nose normal Face and Sinus: face symmetric Mouth: moist mucous membranes Eyes Eyelids: eyelids normal Conjunctivae: conjunctivae normal Pupils: PERRL EOM: EOM intact bilaterally Neck Neck: normal visual inspection, full ROM and no JVD Carotids: Negative bruit Neck Mass: Negative Neck mass Chest Chest inspection: normal inspection of the chest, symmetric chest movement and normal respiratory effort Auscultation: Bilateral: Clear to Auscultation Cardio Palpation: normal PMI Rate: regular rate Rhythm: regular rhythm Heart sounds: S1 normal and S2 normal; negative rub, gallop or murmur GI GI: normal to inspection, soft and bowel sounds present; negative tender Neuro General: alert, awake, oriented x3 and moves all extremities Skin Skin: no rashes or lesions noted Extremities Pulses: Normal: Right Femoral Pulse, Left Femoral Pulse, Right Dorsalis Pedis Pulse, Left Dorsalis Pedis Pulse, Right Posterior Tibial Pulse, Left Posterior Tibial Pulse, Right Radial Pulse, Left Radial Pulse Lower Extremity Edema: None: Bilateral Psych Psychological: normal affect Assessment & Plan 1. Paroxysmal atrial fibrillation I48.0 Plan The patient does have a history of paroxysmal atrial fibrillation. She is continued rate control therapy and anticoagulant therapy. 2. Ventricular tachycardia I47.2 Plan She did have an episode of wide-complex tachycardia during her 30-day ambulatory event monitor. There were concerns as to whether this was aberrancy versus ventricular tachycardia. Based upon her previous clinical course that led to her outpatient exercise tolerance test and her subsequent objective findings it was felt reasonable that she be considered for definitive evaluation of her coronary anatomy with diagnostic cardiac catheterization. The procedure and risks were discussed with her. She is agreeable to this approach. In the meantime she will continue medical management. Orders Orders: Left Heart Cath/COR/LV Percut Today Basic Metabolic Profile (BMP) Today Partial Thromboplast Time Today Prothrombin Time w/INR Today CBC W/Diff, Automated Today Chest PA and Lateral Today 3. Mixed hyperlipidemia E78.2 Plan A copy of her lipid labs will be appreciated for continuity of care. 4. GERD (gastroesophageal reflux disease) K21.9 Plan She will continue evaluation care per internal medicine physician. 5. Tobacco abuse Z72.0 Plan She has been counseled on the importance of no tobacco use. Plan Detail Other Orders Orders: 12 Lead EKG performed by BMS Today I48.91 Other Medications New: clopidogrel (Plavix) 4 tablets on Day 1 then 1 tablet a day starting on Day 2 75 mg PO DAILY 30 tabs 1RF Follow Up 3 Months (PFM) Coding Level of Care Code Off vis,est,level 5 Diagnoses Paroxysmal atrial fibrillation I48.0 ??Atrial fibrillation type: paroxysmal Ventricular tachycardia I47.2 Mixed hyperlipidemia E78.2 GERD (gastroesophageal reflux disease) K21.9 Tobacco abuse Z72.0 Coding Level of Care Code Off vis,est,level 5 Diagnoses Paroxysmal atrial fibrillation I48.0 ??Atrial fibrillation type: paroxysmal Ventricular tachycardia I47.2 Mixed hyperlipidemia E78.2 GERD (gastroesophageal reflux disease) K21.9 Tobacco abuse Z72.0 Supplemental Info Supplemental Information Echocardiogram: 11-30-2019 Interpretation Summary Left ventricular systolic function is normal. The estimated ejection fraction is 65 %. Trivial mitral valve insufficiency. Trivial tricuspid valve insufficiency. Right ventricular systolic pressure estimated to be 27 mmHg. No evidence for diastolic dysfunction. Dobutamine stress echocardiogram: 09-22-19 Interpretation Summary 1. Technically difficult study 2. Contrast injection performed 3.Negative (Adequate) Dobutamine Stress Echocardiogram Comment: The patient was noted to have the aforementioned cardiac dysrhythmias during dobutamine infusion and recovery. The patient was subsequently evaluated and treated with metoprolol tartrate 5 mg IV push x1 and subsequently diltiazem 20 mg IV push x1. The patient had slowing of her cardiac rate but remained in atrial fibrillation. The patient appeared to be symptomatically and hemodynamically stable. The patient was offered cardiovascular consultation for further evaluation and care. The patient accepted and was subsequently evaluated with plans for continued medical management with diltiazem CD 120 mg p.o. daily, anticoagulant therapy with apixaban 5 mg p.o. twice daily, and continued cardiac rhythm monitoring with a 48-hour Holter monitor, with plans for additional evaluation and care as deemed appropriate. The aforementioned information was conveyed to the patient's PCP office. Event monitor: 11-30-2019 Sinus rhythm; PACs; wide-complex tachycardia with a differential diagnosis of atrial fibrillation with aberrancy versus nonsustained VT EC05-03-2020: Sinus bradycardia Diagnostics Electrocardiogram 05/03/20 Echocardiogram 12/08/19 Stress Echocardiogram 09/22/19 COVID (Procedure Consent) Procedure Criteria Procedure Criteria: Yes Elective The surgeon/proceduralist and patient have discussed in detail the risk of exposure to and/or potential harm posed by the COVID-19 virus with having a surgery/procedure at this time versus the risk of? delaying the surgery/procedure. It is not possible to know either the risk of delaying the surgery or procedure or chance of getting an infection with perfect accuracy, but a joint decision was made between the patient and the surgeon/proceduralist ?to proceed at this time with the scheduled surgery/procedure as indicated on the consent form. 05/03/20 1125 <Electronically signed by Surinder flores MD> Date _ Surinder Mar MD I have re-examined the patient. There are no clinical changes since date of exam.
--- NOTE | 2020-05-03 11:55 | RAD_ITS ---
STUDY: X-RAY CHEST REASON FOR EXAM: Female, 64 years old. Chest pain, ventricular tachycardia, pre-op for cardiac catheter TECHNIQUE: PA and lateral views of the chest. COMPARISON: None. FINDINGS: The lungs are clear and expanded. There is no demonstrated pleural abnormality. Normal size heart. Normal mediastinum and bethany. Normal visualized pulmonary arteries. Normal visualized aortic arch and descending thoracic aorta. There are diffuse degenerative changes of the visualized thoracic spine. Normal visualized ribs, clavicles, and shoulders. There is no demonstrated abnormality of the visualized soft tissue structures of the upper abdomen. RAD/Chest PA and Lateral IMPRESSION: No acute pulmonary process Electronically Signed: Haroldo Russ MD at 12:17 EDT , Service support ,
[2020-05-03 12:35] LABS: Absolute Lymphocyte Count 1.48 X10^3/uL (0.83-4.51); Absolute Neutrophil Count 3.9 X10^3/uL (2.0-7.7); Basophil# 0.06 X10^3/uL; Eosinophil# 0.05 X10^3/uL; Eosinophils% 0.8 % (0-5); Hematocrit 45.4 % (37-47); Hemoglobin 14.9 g/dL (12.0-15.0); Lymphocyte # 1.48 X10^3/ul (4.0); Lymphocyte % 24.8 % (19-41); Mean Corp Hgb Conc 32.8 g/dL (32-36); Mean Corpuscular Hgb 32.3 pg (27.0-32.0); Mean Corpuscular Volume 98.5 fL (81-99); Mean Platelet Vol. 8.8 fl (6.2-12.0); Monocyte# 0.52 X10^3/uL; Monocyte% 8.7 % (0-10); NRBC Flagged by Analyzer 0 % (0-5); Neutrophil # 3.85 X10^3/uL (2.7-7.7); Neutrophil % 64.5 % (47-70); Platelet Count 209 K/mm3 (150-450); RBC Distribution Width SD 46.2 fl (35.1-43.9); Red Blood Count 4.61 M/mm3 (4.2-5.4)
[2020-05-03 12:41] LABS: Partial Thromboplast Time 33.4 Seconds (24.1-36.2); Prothrombin Time (Protime)PT. 13.1 SECONDS (11.7-14.9)
[2020-05-03 13:09] LABS: Anion Gap 3 (5-15); BUN 10 mg/dL (7-18); BUN/Creat Ratio 13.5 RATIO (10-20); Calcium,Total 9.1 mg/dL (8.5-10.1); Chloride 103 mmol/L (98-107); Creatinine, Serum 0.74 mg/dL (0.55-1.02); EST Glomerular Filtration Rate 84 mL/min (>60); Est Glom Filt Rate - Afr Amer 101 mL/min (>60); Glucose 95 mg/dL (74-106); Potassium 4.4 mmol/L (3.5-5.1); Sodium Level 137 mmol/L (136-145)
[2020-05-13 11:01] VITALS: BMI 26.4
[2020-05-14] VITALS (20 sets, daily range): BP systolic 94–144; BP diastolic 52–75; PULSE 52–66; RESP 12–18; TEMP 36.5–36.8; O2SAT 91–97
--- NOTE | 2020-05-14 10:14 | CL.I_ITS ---
Patient Name: JOVI HILL Study Date: 05/14/2020 Performing: Ash Sebastian MD Ht: 62.99 inches 160 cm : 1955 Wt: 149.91 lbs 68 kg Age: 64 Gender: female BSA: 1.71 PROCEDURE(S) PERFORMED [id number] W OR WO PTCA, SINGLE CORONARY ARTERY CLINICAL PROFILE AND CO-MORBIDITIES Indications: Suspected CAD, Cardiac Arrythmia Heart Failure: None Stress/Imaging Date: 09/22/2019 Stress Echocardiogram: Negative for changes c/w inducible myocard ial ischemia but abnormal with respect to cardiac dysrhthmias Angina Classification Anginal Classification w/in 2 Weeks: CCS II CAD Presentations: Other: dyspnea on exertion; palpitations CONCLUSIONS Success[facility] Drug [facility] RECOMMENDATIONS DESCRIPTION OF PROCEDURE The patient arrived to the procedure lab. The risks and benefits of the procedure as well as a full d escription of our services here and current unavailability of surgical backup were fully explained to the patient and/or their significant other prior to the catheterization. The Timeout was completed, verifying the correct patient and procedure. The patient's procedural site was prepped and draped in the usual fashion. Local anesthetic was given subcutaneously to right radial region with Lidocaine 2% Using a modified Seldinger technique,arterial access was obtained via the right radial artery, a 6Fr sheath was inserted. Left Coronary Artery selective angiography was performed in multiple views usin g a 5 Fr. 4.0 Eugene catheter. Right Coronary Artery selective angiography was then performed in multi ple views using a 5 Fr. 4.0 Eugene catheter. Left Ventriculography was performed in ACOSTA projection usi ng a 5 Fr. Pigtail catheter. LV to AO pullback pressures were then recorded.The images were reviewed and options discussed. A decision was then made to proceed with an Intervention, IVUS o r other adjunct procedure. CORDIS XB3.0 Guide catheter was inserted and engaged into the LCA. BMW Guide wire was advanced to the Circumflex. 2.50X12 EMERGE Balloon catheter was inserted. Angiogram performed pre balloon dilata tion. 2.50X12 EMERGE Balloon catheter was advanced across lesion in the circumflex, proximal. Angiogr am performed post balloon dilatation. PTCA balloon inflated at 6 atms for [address] ug Eluting stent was inserted. Angiogram performed pre stent deployment. 3.00X12 SYNERGY Balloon cath eter was advanced across lesion in the circumflex, proximal. Angiogram performed post stent deploymen t. The arterial sheath was pulled and a TR Band was applied for hemostasis INTERVENTION INFORMATION LESION SITE: Circumflex (Proximal) Lesion Complexity: High/C, chronic total occlusion: No, lesion at bifurcation: No, thrombus present: No, lesion length: 10 mm, culprit lesion: Yes, Previously treated lesion: No Pre Stenosis: 85 % Pre intervention IVETTE flow: 3 PROCEDURE: Drug Eluting Stent with pre dilatation. Post Stenosis: 0 % Post intervention IVETTE flow: 3 Lesion Devices: Toney .014 BMW [place] Straight 190cm Tanmay Sci EMERGE MR 2.50x12 BALLOON Tanmay Sci Synergy MR MAHAMED 3.00x12 COMPLICATIONS No Complications PROCEDURE MEDICATIONS Fentanyl 50 mcg IV Versed 1 mg IV Oxygen: 2 L/min via nasal cannula Heparin diluted in 23cc Heparinized saline. Patient given 10cc IA of this solution. 05/14/2020 08:40:1 2 Heparin 4000 unit(s) IV 05/14/2020 09:21:49 Nitro 200 mcg IC 05/14/2020 09:32:09 Verapamil 2.5mg, Ntg 100mcgs, 2000 units of Heparin diluted in 23cc Heparinized saline. Patient give n 10cc IA of this solution. 05/14/2020 08:40:12 SUMMARY OF HEMODYNAMIC DATA Time AIR REST ECG 07:36:11 AO 99/56 (72) SA 08:43:20 LV 163/0, 24 08:57:02 LV 163/-1, 24 08:57:03 LV 154/1, 28 08:57:49 LV 156/0, 28 08:57:55 LVp 156/2, 30 08:57:59 AOp 153/64 (95) 08:58:04 Signed By Ash Sebastian MD On 05/14/2020 10:13:49 Ash Sebastian MD
[2020-05-14 10:31] LABS: Hematocrit 43.1 % (37-47); Hemoglobin 14.2 g/dL (12.0-15.0); Mean Corp Hgb Conc 32.9 g/dL (32-36); Mean Corpuscular Hgb 32.2 pg (27.0-32.0); Mean Corpuscular Volume 97.7 fL (81-99); Mean Platelet Vol. 9.4 fl (6.2-12.0); Platelet Count 173 K/mm3 (150-450); RBC Distribution Width SD 46.7 fl (35.1-43.9); Red Blood Count 4.41 M/mm3 (4.2-5.4); White Blood Count 5.6 K/mm3 (4.4-11.0)
[2020-05-14] MEDS: 0.9% Normal Saline 1,000 ML 100 ML IV (10:52)
[2020-05-14] MEDS: HYDROcodone Bitartrate/Apap 5/325 Tablet PO ×2 (11:22→21:55)
[2020-05-14] MEDS: Multivitamins,Therapeutic Tablet 1 TABLET PO (11:24)
[2020-05-14] MEDS: Sertraline 50 MG Tablet PO (11:24)
--- NOTE | 2020-05-14 12:47 | CRPHASE1 ---
Patient Communication Former Patient:: Phase I PHII Cardiac Rehab Discussed with Patient:: Yes Guide to Cardiac Rehab Given to Patient:: Yes Cardiac Rehab Facility Choice List Given to Patient:: Yes Choice Program [facility] PHII:: Communication Given to CR Flaking Roll Operator:: Kelly Sebastian Refer Phase II Cardiac Rehab:: Yes Risk Factors/Lifestyle Smoking Status: Current every day smoker Second-Hand Smoke:: No Hx Hypertension: No Hx Diabetes Mellitus Type 1: No Hx Diabetes Mellitus Type 2: No Hx Metabolic Disorders: No Hx Dyslipidemia: Yes Hx Obesity: No Post-Menopausal: Yes Stress: Long-standing ETOH: No Caffeine: Yes Substance Abuse: No Risk Factor for Sedentary Lifestyle: Moderate Risk Family History: Family History (Last Reviewed 11/24/19 @ 11:18 by EUFEMIA To) Mother Diabetes Myocardial infarction CAD (coronary artery disease) Father Myocardial infarction CAD (coronary artery disease) Sister COPD (chronic obstructive pulmonary disease) Cardiac Rehabilitation Info Cardiac Rehabilitation Program Information: Cardiac Rehabilitation is important for patients like you who are recovering from a heart problem. Cardiac rehabilitation programs are recognized as integral to the continued care of the patient with coronary heart disease. The cardiac rehabilitation program is designed to optimize a patient's physical, psychological, and social functioning. Health clinical manager home care work in cardiac rehabilitation programs and assist you with getting the treatments you need to get stronger and healthier - like exercise, healthy eating habits, and medications. Cardiac rehabilitation has been show to help people with heart problems live longer and have better life enjoyment than people who do not go to cardiac rehabilitation. Please contact the Cardiac Rehabilitation Program at [facility] at in two weeks if you have not heard from them.
--- NOTE | 2020-05-14 12:50 | CRPH1.INST_ITS ---
General Education CAD and cardiac anatomy and function:: Patient communicates acknowledgment Explanation of diagnoses and procedures:: Patient communicates acknowledgment Sign/Symptoms of NC:: Patient communicates acknowledgment Antiplatelet therapy: Patient communicates acknowledgment Proper use of NTG-SL: Patient communicates acknowledgment Emergency procedures and activation of EMS: Patient communicates acknowledgment Compliance of all prescribed medications: Patient communicates acknowledgment Smoking Patient Nicotine/Smoking Risk Factors Are:: Cigarettes Recommendations Include:: Smoking cessation strategies/Smoking packet, Second- hand smoke recommendation, Participation in a smoking cessation program, Previous smoker; encourage continued cessation Nicotine/Smoking Response Code:: Patient communicates acknowledgment Dyslipidemia Recommendations Include:: Lipid profile not available, Reviewed NCEP/ATP guidelines, Therapeutic Lifestyle Change dietary guidelines Dyslipidemia Response Code:: Patient communicates acknowledgment Overweight/Obesity Patient Overweight/Obesity Risk Factors Are:: BMI Normal [24-29 & > 65 years old] Recommendations Include:: Weight loss of 5-10%, Reduced calorie diet, Exercise 5-7 times/week Overweight/Obesity:: Patient communicates acknowledgment Hypertension Patient Hypertension Risk Factors Are:: No documented hx of HTN Sedentary Patient Sedentary Risk Factors Are:: Lack of regular exercise Recommendations Include:: Aerobic exercise 5-7 times/week for 20-30 minutes continuously, Benefits of regular exercise, Discussed home walking program, Monitored Outpatient Cardiac Rehab Sedentary Response Code:: Patient communicates acknowledgment Stress Recommendations Include:: Identification of stressors, and assessment of coping skills, Stress management techniques Stress Response Code:: Patient communicates acknowledgment
--- NOTE | 2020-05-14 14:36 | CL.D_ITS ---
Patient Name: JOVI HILL Study Date: 05/14/2020 Performing: Surinder Mar MD Ht: 62.99 inches 160 cm : 1955 Wt: 149.91 lbs 68 kg Age: 64 Gender: female BSA: 1.71 PROCEDURE(S) PERFORMED OF54-OZX/COR/LV FQ99-EWE W OR WO PTCA, SINGLE CORONARY ARTERY CLINICAL PROFILE AND INDICATIONS Indications: Suspected CAD, Cardiac Arrythmia Heart Failure: None Stress/Imaging Date: 09/22/2019Stress Echocardiogram: Negative for changes c/w inducible myocardi al ischemia but abnormal with respect to cardiac dysrhthmias. Risk of ischemia: Intermediate. 30 da y event monitor showed NSVT Angina Classification Anginal Classification w/in 2 Weeks: CCS II CAD Presentations: Other: dyspnea on exertion; palpitations CONCLUSIONS Elevated Left Ventricular End Diastolic Pressure Normal LV size, wall motion,and systolic function LVEF: by LV gram 65 % [place] Multivessel CAD Left to Right Collateral Flow: to the RPDA / RPL RECOMMENDATIONS Risk factor modification Medical therapy Referred for immediate PCI DESCRIPTION OF PROCEDURE The patient arrived to the procedure lab. The risks and benefits of the procedure as well as a full d escription of our services here and current unavailability of surgical backup were fully explained to the patient and/or their significant other prior to the catheterization. The Timeout was completed, verifying the correct patient and procedure. The patient's procedural site was prepped and draped in the usual fashion. Local anesthetic was given subcutaneously to right radial region with Lidocaine 2% . Using a modified Seldinger technique, arterial access was obtained via the right radial artery, a 6 Fr sheath was inserted. Left Coronary Artery selective angiography was performed in multiple views u sing a 5 Fr. 4.0 [place] catheter. Right Coronary Artery selective angiography was then performed in mu ltiple views using a 5 Fr. 4.0 [place] catheter. Left Ventriculography was performed in ACOSTA projection using a 5 Fr. Pigtail catheter. LV to AO pullback pressures were then recorded.The arterial sheath was pulled and a TR Band was applied for hemostasis CORONARY ANGIOGRAPHY DOMINANCE: Right Dominant LEFT HEART ASSESSMENT Left Ventricular Ejection Fraction: by LV Gram 65 % Normal LV wall motion Elevated Left Ventricular End Diastolic Pressure LVEDP: 24 mmHg LEFT MAIN: Angiographically normal LEFT ANTERIOR DESCENDING ARTERY: Mild luminal irregularities CIRCUMFLEX ARTERY: PROX CIRC: eccentric: 85 % Stenosis RIGHT CORONARY ARTERY: PROX RCA: diffuse: irregular: 85 % Stenosis MID RCA: diffuse: irregular: 85 % Stenosis DISTAL RCA: diffuse: irregular: 85 % Stenosis COLLATERAL FLOW: Collateral flow from Left to Right AORTIC ROOT: Angiographically normal COMPLICATIONS No Complications PROCEDURE MEDICATIONS Fentanyl 50 mcg IV Versed 1 mg IV Oxygen: 2 L/min via nasal cannula Aspirin (325mg) 1 Tabs PO @ 05/14/2020 07:45:57 Heparin diluted in 23cc Heparinized saline. Patient given 10cc IA of this solution. 05/14/2020 08:40:1 2 Heparin 4000 unit(s) IV 05/14/2020 09:21:49 Nitro 200 mcg IC 05/14/2020 09:32:09 Verapamil 2.5mg, Ntg 100mcgs, 2000 units of Heparin diluted in 23cc Heparinized saline. Patient give n 10cc IA of this solution. 05/14/2020 08:40:12 SUMMARY OF HEMODYNAMIC DATA Time AIR REST ECG 07:36:11 AO 99/56 (72) SA 08:43:20 LV 163/0, 24 08:57:02 LV 163/-1, 24 08:57:03 LV 154/1, 28 08:57:49 LV 156/0, 28 08:57:55 LVp 156/2, 30 08:57:59 AOp 153/64 (95) 08:58:04 Signed By Surinder Mar MD On 05/22/2020 7:47:21 AM Surinder Mar MD
[2020-05-14] MEDS: Pravastatin 20 MG Tablet 10 MG PO (21:51)
[2020-05-14] MEDS: traZODone 100 MG Tablet PO (21:51)
[2020-05-15] VITALS (7 sets, daily range): BP systolic 117–124; BP diastolic 45–93; PULSE 51–66; RESP 16–17; TEMP 36.2–36.7; O2SAT 90–97
[2020-05-15 05:42] LABS: Hematocrit 39.4 % (37-47); Hemoglobin 13.1 g/dL (12.0-15.0); Mean Corp Hgb Conc 33.2 g/dL (32-36); Mean Corpuscular Volume 99.2 fL (81-99); Mean Platelet Vol. 9.3 fl (6.2-12.0); Platelet Count 170 K/mm3 (150-450); RBC Distribution Width CV 12.9 % (11.6-14.6); RBC Distribution Width SD 46.7 fl (35.1-43.9); Red Blood Count 3.97 M/mm3 (4.2-5.4); White Blood Count 3.9 K/mm3 (4.4-11.0)
[2020-05-15 06:03] LABS: ALB/GLOB Ratio 1.2 RATIO (0.9-2.4); AST(SGOT) 11 U/L (15-37); Alanine Aminotransfer ALT/SGPT 15 U/L (13-56); Albumin, Serum 3.3 g/dL (3.2-5.0); Alkaline Phosphatase 74 U/L (45-117); Anion Gap 2 (5-15); BUN 12 mg/dL (7-18); BUN/Creat Ratio 15.1 RATIO (10-20); Calcium,Total 8.5 mg/dL (8.5-10.1); Chloride 105 mmol/L (98-107); EST Glomerular Filtration Rate 77 mL/min (>60); Est Glom Filt Rate - Afr Amer 93 mL/min (>60); Estimated Creatinine Clearance 58.77 ml/min; Globulin 2.7 g/dL (2.2-4.2); Glucose 96 mg/dL (74-106); Potassium 4.2 mmol/L (3.5-5.1); Sodium Level 141 mmol/L (136-145)
--- NOTE | 2020-05-15 08:54 | PCM.DC ---
- Discharge Diagnoses Current Active Problems: CAD status post LCx/OM PCI Reason(s) for Visit for Discharge Instructions: Abnormal dobutamine stress echocardiogram. Cardiac dysrhythmia You will use the following diet at home:: Cardiac Your food should be the consistency of: Regular Discharge Activity: May Not Drive - Do not drive x48 hours, May Shower - May shower today, May Take a Tub Bath - May not take a tub bath for 7 days Weight Bearing Status: - - Avoid heavy exertional activity with respect to the right upper extremity x7 days Call your doctor if your incision/area has: Continuous Slow Oozing, Sudden Increased Bleeding, Increased Pain/ Swelling, Increased Redness, Foul Smelling Discharge, Swelling at the incision site Call your doctor if you observe: Fever of 101 or Higher, Shortness of breath, Dizziness, Fainting spells, Chest pain, Increased palpitations (irregular heartbeat) Remove Dressing in (days):: 1 Cleanse incision/area with: Soap & Water Additional Instructions: Initiate additional medical therapy with isosorbide mononitrate/Imdur at 30 mg p.o. daily (office to send in prescription) Allergies/Adverse Reactions: Allergies doxycycline Adverse Reaction (Unknown, Verified 05/03/20 10:37) Unknown Medications to take at Discharge Pravastatin Sodium 10 mg PO QHS 12/13/18 traZODone [Desyrel] 100 mg PO QHS 12/13/18 pantoprazole 40 mg tablet,delayed release 40 mg PO DAILY 09/22/19 sertraline 50 mg tablet 50 mg PO DAILY 09/22/19 biotin 1 mg capsule 1 mg PO DAILY 11/24/19 hydrocodone 5 mg-acetaminophen 325 mg tablet 1 tab PO BID 11/24/19 tizanidine 4 mg capsule 4 mg PO BID PRN cap 11/24/19 metoprolol succinate 50 mg tablet,extended release 24 hr 50 mg PO DAILY #30 tab 12/13/19 clopidogrel 75 mg tablet 75 mg PO DAILY #30 tab 05/03/20 multivitamin 1 tab PO DAILY 05/03/20 Aspirin E.C. [Ecotrin] 81 mg PO DAILY@0800 tab 05/15/20 Primary Care Physician: Toña Rai MD [Primary Care Provider] - Test Results: Test results from this visit will be discussed in further detail at your follow-up appointment, if applicable. Please Follow Up With: Surinder Mar MD When: [facility] to arrange follow up appointment
--- NOTE | 2020-05-15 08:58 | DS.PCM_ITS ---
Discharge Date and Diagnosis Date of Admission: 05/14/20 Date of Discharge: 05/15/20 - Primary Discharge Diagnosis Acute Problems: CAD status post LCx/OM PCI - Secondary Discharge Diagnosis Chronic Problems: Chronic Problems (Last Reviewed 11/24/19 @ 11:18 by EUFEMIA To) Tobacco abuse (Chronic) Mixed hyperlipidemia (Chronic) GERD (gastroesophageal reflux disease) (Chronic) Atrial fibrillation (Chronic) Hospital Course and Treatment Procedures: Cardiac catheterization, - - Cardiac intervention: PCI: LCx/OM Summary of Care Provided: The patient is a 64 year old white female presented for evaluation of an abnormal dobutamine stress echocardiogram with concerns of cardiac dysrhythmias both atrial and ventricular for further evaluation with diagnostic cardiac catheterization. The cardiac catheterization findings are as noted. CONCLUSIONS Elevated Left Ventricular End Diastolic Pressure Normal LV size, wall motion,and systolic function LVEF: by LV gram 65 % [place] Multivessel CAD Left to Right Collateral Flow: to the RPDA / RPL RECOMMENDATIONS Risk factor modification Medical therapy Referred for immediate PCI CORONARY ANGIOGRAPHY DOMINANCE: Right Dominant LEFT HEART ASSESSMENT Left Ventricular Ejection Fraction: by LV Gram 65 % Normal LV wall motion Elevated Left Ventricular End Diastolic Pressure LVEDP: 24 mmHg LEFT MAIN: Angiographically normal LEFT ANTERIOR DESCENDING ARTERY: Mild luminal irregularities CIRCUMFLEX ARTERY: PROX CIRC: eccentric: 85 % Stenosis RIGHT CORONARY ARTERY: PROX RCA: diffuse: irregular: 85 % Stenosis MID RCA: diffuse: irregular: 85 % Stenosis DISTAL RCA: diffuse: irregular: 85 % Stenosis COLLATERAL FLOW: Collateral flow from Left to Right AORTIC ROOT: Angiographically normal Patient underwent cardiac catheterization/intervention/PCI of the LCx/OM system as noted: CONCLUSIONS Successful PCI with Drug eluting stent and PTCA to the pLCx The patient was monitored overnight. She had no acute cardiovascular symptoms or objective findings. Of note the patient states she has been having, which she did not notify her cardiovascular team of prior to her procedure, intermittent episodes of bright red blood per rectum. She noted a brief episode of such this day. She states she has been followed by Dr. Federico Hall of [facility] general surgery for this condition in the past which was thought attributable to hemorrhoids. At the present time she remains symptomatically and hemodynamically stable. Her H&H remained stable. Noting this information it was felt she should follow-up with Dr. Hall or the aforementioned concerns. In the interim she will continue her aspirin therapy and her clopidogrel/Plavix therapy. However she will stop her apixaban/Eliquis therapy (of note she is remaining in sinus rhythm at this time). Otherwise she will continue with future outpatient cardiovascular follow-up as deemed appropriate. [] Subjective: The patient appears to be awake and alert and in no acute distress. - Physical Exam Vitals/I&O's: Vital Signs Temp Pulse Resp BP Pulse Ox 98.1 F 66 16 121/93 H 93 05/15/20 08:16 05/15/20 08:16 05/15/20 08:16 05/15/20 08:16 05/15/20 08:16 Oxygen Delivery Method Room Air Weight: 149 lb Body Mass Index (BMI) 26.4 Intake and Output for Last 24 Hours 05/13/20 05/14/20 05/15/20 23:59 23:59 23:59 Intake Total 2111.07 / 2431.07 320 / 320 Balance 2111.07 / 2431.07 320 / 320 General: Alert, Oriented x3, Cooperative, No apparent distress HEENT: Atraumatic, PERRLA, EOMI, Normocephalic Neck: Supple, No JVD Lungs: Clear to auscultation Cardiovascular: Regular rate, Normal S1, Normal S2 Abdomen: Bowel Sounds Present, Soft, Non Tender Extremities: No edema Neurological: Neuro grossly intact Psych/Mental Status: Normal Affect Comment: Right radial artery site: Pulse 2+/4+: Negative bruit: Negative hematoma Laboratory Results 05/14/20 10:20: WBC 5.6, RBC 4.41, Hgb 14.2, Hct 43.1, MCV 97.7, MCH 32.2 H, MCHC 32.9, RDW Std Deviation 46.7 H, RDW Coeff of Camilo 13.0, Plt Count 173, MPV 9.4 05/15/20 05:35: WBC 3.9 L, RBC 3.97 L, Hgb 13.1, Hct 39.4, MCV 99.2 H, MCH 33.0 H, MCHC 33.2, RDW Std Deviation 46.7 H, RDW Coeff of Camilo 12.9, Plt Count 170, MPV 9.3 05/15/20 05:35: Sodium 141, Potassium 4.2, Chloride 105, Carbon Dioxide 34.0 H, Anion Gap 2 L, BUN 12, Creatinine 0.80, Estim Creat Clear Calc 58.77, Est GFR (MDRD) Af Amer 93, Est GFR (MDRD) Non-Af 77, BUN/Creatinine Ratio 15.1, Glucose 96, Calcium 8.5, Total Bilirubin 0.30, AST 11 L, ALT 15, Alkaline Phosphatase 74, Total Protein 6.0 L, Albumin 3.3, Globulin 2.7, Albumin/Globulin Ratio 1.2 Current Medications Hydrocodone Bitart/Acetaminophen ([place] 5mg-325mg) 1 tablet PO BID [facility] Last Admin: 05/14/20 21:55 Dose: 1 tablet Documented by: Apixaban (Eliquis) 5 mg PO BID [facility] Aspirin (Ecotrin) 81 mg PO DAILY@0800 [facility] Atropine Sulfate () 0.5 mg IV UD PRN PRN Reason: HR <50 bpm Clopidogrel Bisulfate (Plavix) 75 mg PO DAILY [facility] Heparin Sodium (Beef Lung) (Heparin 500 Unit/5 Ml (100/Ml)) 500 unit IV UD PRN PRN Reason: HEPARIN FLUSH Isosorbide Mononitrate (Imdur) 30 mg PO DAILY [facility] Labetalol HCl (Trandate) 5 mg IV X1 PRN PRN Reason: SBP > 160 when pulling sheath Stop: 05/16/20 09:54 Metoprolol Succinate (Toprol Xl (Beta Fred)) 50 mg PO DAILY [facility] Last Admin: 05/14/20 11:02 Dose: Not Given Documented by: Multivitamins (Multivitamin) 1 tablet PO DAILY@0800 [facility] Last Admin: 05/14/20 11:24 Dose: 1 tablet Documented by: Pantoprazole Sodium (Protonix) 40 mg PO DAILY [facility] Last Admin: 05/14/20 11:02 Dose: Not Given Documented by: Pravastatin Sodium (Pravachol) 10 mg PO QHS [facility] Last Admin: 05/14/20 21:51 Dose: 10 mg Documented by: Sertraline HCl (Zoloft) 50 mg PO DAILY [facility] Last Admin: 05/14/20 11:24 Dose: 50 mg Documented by: Sodium Chloride () 500 ml IV BOLUS PRN PRN Reason: VASO-VAGAL PROTOCOL Tizanidine HCl (Zanaflex) 4 mg PO BID PRN PRN Reason: muscle spasticity Trazodone HCl (Desyrel) 100 mg PO QHS [facility] Last Admin: 05/14/20 21:51 Dose: 100 mg Documented by: Discharge Diet: Low fat/ Low Cholesterol Discharge Activity: May Not Drive - Do not drive x48 hours, May Shower - May shower today, May Take a Tub Bath - May not take a tub bath for 7 days Weight Bearing Status: - - Avoid heavy exertional activity with respect to the right upper extremity x7 days Call your doctor if your incision/area has: Continuous Slow Oozing, Sudden Increased Bleeding, Increased Pain/ Swelling, Increased Redness, Foul Smelling Discharge, Swelling at the incision site Call your doctor if you observe: Fever of 101 or Higher, Shortness of breath, Dizziness, Fainting spells, Chest pain, Increased palpitations (irregular heartbeat) Remove Dressing in (days):: 1 Cleanse incision/area with: Soap & Water Home Medications: Medications to take at Discharge Pravastatin Sodium 10 mg PO QHS 12/13/18 traZODone [Desyrel] 100 mg PO QHS 12/13/18 pantoprazole 40 mg tablet,delayed release 40 mg PO DAILY 09/22/19 sertraline 50 mg tablet 50 mg PO DAILY 09/22/19 biotin 1 mg capsule 1 mg PO DAILY 11/24/19 hydrocodone 5 mg-acetaminophen 325 mg tablet 1 tab PO BID 11/24/19 tizanidine 4 mg capsule 4 mg PO BID PRN cap 11/24/19 metoprolol succinate 50 mg tablet,extended release 24 hr 50 mg PO DAILY #30 tab 12/13/19 clopidogrel 75 mg tablet 75 mg PO DAILY #30 tab 05/03/20 multivitamin 1 tab PO DAILY 05/03/20 Aspirin E.C. [Ecotrin] 81 mg PO DAILY@0800 tab 05/15/20 Primary Care Physician: Toña Rai MD [Primary Care Provider] - Please Follow Up With: Surinder Mar MD When: [facility] to arrange follow up appointment Please Follow Up With: Federico Hall MD When: Please contact his office to arrange an appointment as soon as possible Disposition: Home Minutes spent on discharge:: 45 Patient Condition:: Stable Medical Necessity - Tobacco Use Smoking Status: Current every day smoker Meaningful Use Info Meaningful Use Diagnoses (Choose all that apply): None applicable
[2020-05-15] MEDS: Pantoprazole Sodium 40 MG Tablet PO (09:31)
[2020-05-15] MEDS: Clopidogrel Bisulfate 75 MG Tablet PO (09:31)
[2020-05-15] MEDS: Multivitamins,Therapeutic Tablet 1 TABLET PO (09:31)
[2020-05-15] MEDS: Metoprolol(XL)Succ 50 MG Tablet PO (09:31)
[2020-05-15] MEDS: Aspirin E.C. 81 MG Tablet PO (09:31)
[2020-05-15] MEDS: Sertraline 50 MG Tablet PO (09:32)
[2020-05-15] MEDS: Isosorbide Mononitrate 30 MG Tablet PO (09:38)
--- NOTE | 2020-05-15 10:00 | EKG12_ITS ---
Test Reason : AM EKG Blood Pressure : / mmHG Vent. Rate : 061 BPM Atrial Rate : 061 BPM P-R Int : 152 ms QRS Dur : 098 ms QT Int : 414 ms P-R-T Axes : 037 077 069 degrees QTc Int : 416 ms Sinus rhythm with Premature atrial complexes Otherwise normal ECG Confirmed by KAVITA DELANEY, SURINDER ([id number]), material expeditor BEHZAD MIRELES ([id number]) on 05/16/2020 3:39:56 PM Referred By: Surinder Walls Confirmed By:SURINDER WALLS MD
--- NOTE | 2020-05-15 10:27 | PHA.DC.MR ---
Pharmacy Service has performed discharge medication reconciliation for this patient. The patient's discharge medication list was reviewed for discrepancies and discrepancies were resolved. Home Medications Pravastatin Sodium 10 mg PO QHS 12/13/18 traZODone [Desyrel] 100 mg PO QHS 12/13/18 pantoprazole 40 mg tablet,delayed release 40 mg PO DAILY 09/22/19 sertraline 50 mg tablet 50 mg PO DAILY 09/22/19 biotin 1 mg capsule 1 mg PO DAILY 11/24/19 hydrocodone 5 mg-acetaminophen 325 mg tablet 1 tab PO BID 11/24/19 tizanidine 4 mg capsule 4 mg PO BID PRN cap 11/24/19 metoprolol succinate 50 mg tablet,extended release 24 hr 50 mg PO DAILY #30 tab 12/13/19 clopidogrel 75 mg tablet 75 mg PO DAILY #30 tab 05/03/20 multivitamin 1 tab PO DAILY 05/03/20 Aspirin E.C. [Ecotrin] 81 mg PO DAILY@0800 tab 05/15/20 isosorbide mononitrate 30 mg tablet,extended release 24 hr 30 mg PO DAILY #30 tab 05/15/20
== END 2020-05-15 08:58 | disposition home or self-care (01) ==
LOC: CLSP 07:17 → PCU 10:20
PROVIDERS: Specialist; PCP Internal Medicine; Referring Provider Internal Medicine Cardiovascular Disease; Visit Provider Internal Medicine Cardiovascular Disease
DX: I25.10 Atherosclerotic heart disease of native coronary artery without angina pectoris (principal); I48.0 Paroxysmal atrial fibrillation; I47.2 Ventricular tachycardia; E78.2 Mixed hyperlipidemia; K21.9 Gastro-esophageal reflux disease without esophagitis; Z79.01 Long term (current) use of anticoagulants; Z79.02 Long term (current) use of antithrombotics/antiplatelets; Z79.82 Long term (current) use of aspirin; Z79.899 Other long term (current) drug therapy; F17.200 Nicotine dependence, unspecified, uncomplicated
CPT/HCPCS: 36415; 71046; 80048; 80053; 85025; 85027; 85610; 85730; 92928; 93005; 93458; 99152; 99153; J7030; J7040; Q9967; C1725; C1769; C1874; C1887; C1894; C9600; J1327

== ENCOUNTER → 2020-12-26 15:24 | Outpatient (CLI) | payer MEDICARE, SELFPAY ==
[2020-07-19 14:15] VITALS: BMI 26.8
--- NOTE | 2020-12-26 15:50 | RAD_ITS ---
STUDY: X-RAY - LEFT SHOULDER REASON FOR EXAM: Left shoulder pain and limited range of motion. TECHNIQUE: 4 view(s) of the shoulder. COMPARISON: None. FINDINGS: Normal glenohumeral articulation. There is acromioclavicular arthrosis with undersurface osteophytes. Normal acromion. Normal humeral head and visualized proximal humerus. The soft tissue structures are unremarkable. Normal visualized pulmonary apex. RAD/Shoulder min 2 Views IMPRESSION: Acromioclavicular arthrosis. Electronically Signed: Raymundo Patterson MD at 11:12 EDT Tel , Service support ,
== END ==
PROVIDERS: PCP Internal Medicine; Referring Provider Anesthesiology Pain Medicine; Visit Provider Anesthesiology Pain Medicine
DX: M25.512 Pain in left shoulder (principal)
CPT/HCPCS: 73030

== ENCOUNTER → 2021-05-01 17:07 | Outpatient (CLI) | payer MEDICARE, SELFPAY ==
[2021-01-24 14:19] VITALS: BMI 27.3
--- NOTE | 2021-05-01 17:21 | RAD_ITS ---
STUDY: X-RAY - PELVIS AND RIGHT HIP REASON FOR EXAM: Female, 65 years old. Right hip pain for 2 weeks after twisting leg in the bathtub. TECHNIQUE: 3 views of the pelvis and hip. COMPARISON: None. FINDINGS: There is a non-specific bowel gas pattern. Normal visualized soft tissue structures. Degenerative changes lower lumbar spine. Normal bilateral iliac wings, sacroiliac joints and visualized sacrum. Normal bilateral superior and inferior pubic rami. Normal pubic symphysis. Normal bilateral ischial tuberosities. There are osteoarthritic changes of the right femoral head with marginal osteophyte formation. There is minimal osteoarthritic spur formation of the right acetabular rim. There is moderate articular joint space narrowing of the right hip. RAD/HIP, UNI W/ Pelvis 2-3 Views IMPRESSION: Degenerative changes of the right hip. There is no acute fracture or dislocation. Electronically Signed: Tejas López DO at 18:57 EDT Tel [phone], Service support ,
== END ==
PROVIDERS: PCP Internal Medicine; Referring Provider Anesthesiology Pain Medicine; Visit Provider Anesthesiology Pain Medicine
DX: M25.551 Pain in right hip (principal)
CPT/HCPCS: 73502

== ENCOUNTER 2021-12-24 14:20 | Emergency (ER) | payer MEDICARE, MEDICAID, SELFPAY ==
[2021-12-24 14:21] VITALS: BP 141/75; PULSE 74; RESP 16; TEMP 36.9; O2SAT 95; BMI 28.0
--- NOTE | 2021-12-24 14:45 | EKG12_ITS ---
Test Reason : CP Blood Pressure : / mmHG Vent. Rate : 071 BPM Atrial Rate : 071 BPM P-R Int : 152 ms QRS Dur : 100 ms QT Int : 404 ms P-R-T Axes : 041 070 060 degrees QTc Int : 439 ms Normal sinus rhythm Normal ECG Confirmed by ANN DELANEY, ADAN ([id number]), primer expeditor and drier ELLYN ULRICH ([id number]) on 12/26/2021 7:24:16 AM Referred By: Confirmed By:OLIVA JUAREZ MD
--- NOTE | 2021-12-24 14:45 | ED.VIS.CHEST ---
HPI History of Present Illness Chief Complaint: Chest Pain Informant: patient Narrative Narrative: Patient states she has been having intermittent brief episodes of fluttering/skipping that she feels in her chest retrosternal every day for months. For the last month or so she has also been having discomfort in her right chest wall inframammary area for no obvious reason but states it feels like it is one of her ribs that she can push on and feel the discomfort in. Sometimes she get sweaty and feels tingling in both hands and feet. Sometimes that is associated with the palpitations especially when she gets up some mornings, other times it is not. 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 fib. She states they did an EKG and told her she was not in A. fib and sent her down here to the emergency department. She had a stent that was placed around 18 months or so ago, she states she was getting prepped for a stress test when she went into A. fib and that is when they took her to the [facility] and found the lesion and stented her, she has had no stress test since then. She states she continues to smoke. [facility] Medical History (Updated 12/24/21 @ 16:[address] Leroy Shanks MD) Atherosclerotic heart disease of [place] coronary artery without angina pectoris Atrial fibrillation Depression GERD (gastroesophageal reflux disease) History of chronic pain Mixed hyperlipidemia Paroxysmal atrial fibrillation Polyp, vocal cord Presence of stent in coronary artery (~05/14/20) Tobacco abuse Home Medications trazodone 100 mg PO QHS 12/13/18 [History Last Taken Unknown] pantoprazole 40 mg tablet,delayed release 40 mg PO DAILY 09/22/19 [History Last Taken 05/14/20] sertraline 50 mg tablet 50 mg PO DAILY 09/22/19 [History Last Taken Unknown] hydrocodone-acetaminophen 5-325mg 5mg-325mg 1 tab PO BID 11/24/19 [History Last Taken Unknown] tizanidine 4 mg capsule 4 mg PO BID PRN cap 11/24/19 [History Last Taken Unknown] multivitamin 1 tab PO DAILY 05/03/20 [History Last Taken Unknown] aspirin 81 mg PO DAILY@0800 tab 05/15/20 [Rx Last Taken Unknown] acetaminophen 325 mg capsule 325 mg PO ONCE PRN 07/19/20 [History Last Taken Unknown] cholecalciferol (vitamin D3) 125 mcg (5,000 unit) capsule 125 mcg PO DAILY 07/19/20 [History Last Taken Unknown] pravastatin 20 mg tablet 20 mg PO QHS #30 tab 07/02/21 [Rx Last Taken Unknown] clopidogrel 75 mg tablet 75 mg PO DAILY #90 tab 08/05/21 [Rx Last Taken Unknown] biotin 1 mg PO DAILY 12/24/21 [History Last Taken Unknown] metoprolol succinate 50 mg PO DAILY 12/24/21 [History Last Taken Unknown] Allergy/AdvReac Type Severity Reaction Status Date / Time doxycycline AdvReac Unknown Unknown Verified 12/24/21 14:28 Family History Mother Diabetes Myocardial infarction CAD (coronary artery disease) Father Myocardial infarction CAD (coronary artery disease) Sister COPD (chronic obstructive pulmonary disease) Surgical History History of section History of hemorrhoidectomy History of hernia repair History of total hysterectomy Presence of coronary angioplasty implant and graft (~05/14/20) Social History Smoking Status: Current every day smoker tobacco type: cigarettes alcohol intake: current alcohol intake frequency: holidays/special occasions only substance use type: marijuana caffeine: Yes Type: carbonated beverages Number of servings: 3 and coffee Number of servings: 3 ROS ROS ED Constitutional Constitutional ED: Reports other Details: Occasional sweats especially when wakes up in the morning with palpitations sometimes ; Denies chills or fever(s) Eyes Eyes: Denies change in vision or diplopia ENT ENT ED: Denies rhinorrhea or sore throat Cardiovascular Cardiovascular: Reports as per HPI, chest pain and palpitations Respiratory/Chest Respiratory/Chest: Denies cough or dyspnea Gastrointestinal Gastrointestinal: Denies abdominal pain, diarrhea, nausea or vomiting Genitourinary Genitourinary ED: Denies dysuria or hematuria Musculoskeletal Musculoskeletal: Denies back pain or neck pain Integumentary Denies abscess or rash Neurologic Neurologic: Reports paresthesias RUE, RLE, LUE and LLE; Denies headache(s) or weakness Psychiatric Psychiatric: Denies anxiety or suicidal thoughts EXAM Physical Exam Const Vital Signs: 12/24/21 14:21 12/24/21 14:29 12/24/21 15:27 Temperature 98.5 F Temperature Source Oral Pulse Rate 74 86 Respiratory Rate 16 16 Respiratory Effort Normal Non-Labored Respiratory Pattern Normal Blood Pressure 141/75 H Blood Pressure Mean 97 Pulse Ox 95 99 Oxygen Delivery Method Room Air Room Air 12/24/21 16:07 Temperature Temperature Source Pulse Rate Respiratory Rate 16 Respiratory Effort Respiratory Pattern Blood Pressure Blood Pressure Mean Pulse Ox 99 Oxygen Delivery Method Room Air Positive well nourished and well developed General Appearance ED: well developed and NAD HEENT Reports moist mucous membranes normocephalic and atraumatic Eyes PERRL and EOMs intact bilaterally Neck full ROM and supple Chest Wall inspection of chest normal Chest Narrative: Point tenderness to the parasternal aspect of right rib approximately #5 inframammary, without a palpable mass or crepitance or subcutaneous emphysema or overlying skin abnormality. Reproduces the pain she is having there. Resp normal respiratory effort and clear to auscultation bilaterally Cardio regular rate, regular rhythm, no murmurs and peripheral pulses 2+ throughout; Negative for diaphoretic Rate: Negative for tachycardic GI non-tender and non-distended Auscultation: normoactive bowel sounds Palpation: soft Back/Spine no CVA tenderness General Back: other FROM Extremity normal to inspection and no calf tenderness General Extremety ED: Negative for edema, pulses abnormal or tenderness General Extremity: Negative for edema or pulses abnormal Neuro oriented x3, CN's II-XII intact bilaterally and no sensory deficits noted Sensorium / Orientation: awake and alert Motor Exam: strength 5/5 throughout Skin no rashes or lesions noted and no wounds Heart Score History: Slightly/Non-Suspicious ECG: Normal Age: >/= 65 years Risk Factors: >/= 3 Risk Factors or History of CAD Troponin: </= Normal Limit Score: 4 MDM MDM MDM Narrative Medical decision making narrative: Blood work noted including unremarkable EKG and troponin. Chest x-ray 2 views on my interpretation normal for anything acute, radiology in agreement. Patient did not have any telemetry events or symptoms of angina while resting here in the emergency department. I discussed the case with Dr. Mar, he is in agreement with having the patient follow-up closely as an outpatient, she is okay with that as well. We talked extensively for more than 5 minutes about trying to discontinue smoking she is in agreement and wants to. Lab Data Attestation: I reviewed the patient's lab results. Labs: Laboratory Results - last 24 hr 12/24/21 12/24/21 15:00 15:00 WBC 4.7 RBC 4.70 Hgb 15.3 H Hct 44.0 MCV 93.6 MCH 32.6 H MCHC 34.8 RDW Std Deviation 42.4 RDW Coeff of [place] 12.2 Plt Count 216 MPV 9.3 Immature Gran % (Auto) 0.200 Neut % (Auto) 61.2 Lymph % (Auto) 25.5 [place] % (Auto) 11.4 H Eos % (Auto) 0.6 Baso % (Auto) 1.1 H Absolute Neuts (auto) 2.9 Absolute Lymphs (auto) 1.21 Nucleated RBC % 0 Sodium 140 Potassium 3.6 Chloride 105 Carbon Dioxide 31.0 Anion Gap 4 L BUN 7 Creatinine 0.78 Estim Creat Clear Calc 45.78 Est GFR (MDRD) Af Amer 96 Est GFR (MDRD) Non-Af 79 BUN/Creatinine Ratio 9.0 L Glucose 110 H Calcium 8.9 Troponin I High Sens 8 Radiography Diagnostic Testing: Clinical Impression(s) from Imaging Studies Chest X-Ray 12/24/21 15:44 IMPRESSION: No acute findings. Electronically Signed: Mj Villegas, at 15:57 EDT Reading Location ID and State: [address] [place] [address] Tel , Service support , EKG Initial EKG: Attestation: I personally reviewed and interpreted this EKG as follows: Interpretation: Sinus Rhythm and No Acute Injury Pattern Comments: Normal EKG Discharge Plan Triage Chief Complaint: Chest Pain ED Provider: Leroy Shanks Dx/Rx/DC Orders Clinical Impression: Palpitations, Right-sided chest wall pain, Encounter for smoking cessation counseling Instructions: ED Palpitations Prescriptions: No Action pantoprazole 40 mg tablet,delayed release (DR/EC) 40 mg PO DAILY RF: 0 sertraline 50 mg tablet 50 mg PO DAILY RF: 0 hydrocodone-acetaminophen 5-325 mg tablet 1 tab PO BID RF: 0 multivitamin [Daily Multi-Vitamin] Tablet 1 tab PO DAILY RF: 0 cholecalciferol (vitamin D3) 125 mcg (5,000 unit) capsule 125 mcg PO DAILY RF: 0 acetaminophen [Tylenol] 325 mg capsule 325 mg PO ONCE PRN (Reason: pain/fever) RF: 0 trazodone 100 MG tablet 100 mg PO QHS RF: 0 tizanidine 4 mg capsule 4 mg PO BID PRN (Reason: muscle spasticity) RF: 0 aspirin 81 MG tablet 81 mg PO DAILY@0800 RF: 0 biotin 500 mcg Capsule 1 mg PO DAILY RF: 0 metoprolol succinate 50 mg tablet extended release 24 hr 50 mg PO DAILY RF: 0 pravastatin 20 mg tablet 20 mg PO QHS Qty: 30 RF: 6 clopidogrel [Plavix] 75 mg tablet 75 mg PO DAILY Qty: 90 RF: 3 Primary Care Provider: Toña Rai Referrals: Toña Rai MD [Primary Care Provider] - Surinder Mar MD [STAFF PHYSICIAN] - As soon as possible (Call for appointment) Disposition Disposition: Home, Self Care
[2021-12-24 15:14] LABS: Absolute Lymphocyte Count 1.21 X10^3/uL (0.83-4.51); Absolute Neutrophil Count 2.9 X10^3/uL (2.0-7.7); Basophil# 0.05 X10^3/uL; Basophil% 1.1 % (0-1); Eosinophil# 0.03 X10^3/uL; Eosinophils% 0.6 % (0-5); Hemoglobin 15.3 g/dL (12.0-15.0); Lymphocyte # 1.21 X10^3/ul (0.83-4.51); Lymphocyte % 25.5 % (19-41); Mean Corp Hgb Conc 34.8 g/dL (32-36); Mean Corpuscular Hgb 32.6 pg (27.0-32.0); Mean Corpuscular Volume 93.6 fL (81-99); Mean Platelet Vol. 9.3 fl (6.2-12.0); Monocyte# 0.54 X10^3/uL; Monocyte% 11.4 % (0-10); NRBC Flagged by Analyzer 0 % (0-5); Neutrophil % 61.2 % (47-70); Platelet Count 216 K/mm3 (150-450); RBC Distribution Width CV 12.2 % (11.6-14.6); RBC Distribution Width SD 42.4 fl (35.1-43.9); White Blood Count 4.7 K/mm3 (4.4-11.0)
[2021-12-24 15:27] VITALS: PULSE 86; RESP 16; O2SAT 99
[2021-12-24 15:34] LABS: Anion Gap 4 (5-15); BUN 7 mg/dL (7-18); Calcium,Total 8.9 mg/dL (8.5-10.1); Chloride 105 mmol/L (98-107); Creatinine, Serum 0.78 mg/dL (0.55-1.02); EST Glomerular Filtration Rate 79 mL/min (>60); Est Glom Filt Rate - Afr Amer 96 mL/min (>60); Estimated Creatinine Clearance 45.78 ml/min; Glucose 110 mg/dL (74-106); Potassium 3.6 mmol/L (3.5-5.1); Sodium Level 140 mmol/L (136-145); Troponin-I HS 8 pg/mL (3.0-54.0)
--- NOTE | 2021-12-24 15:44 | RAD_ITS ---
INDICATION: chest pain EXAMINATION/TECHNIQUE: X-RAY - XR Chest 2 Views COMPARISON: Chest radiograph from 05/03/2020. FINDINGS: Support devices: None. No focal consolidations, effusions, or sizable pneumothorax. Cardiomediastinal silhouette is within normal limits. No acute findings in the bones or soft tissues. RAD/Chest PA and Lateral IMPRESSION: No acute findings. Electronically Signed: Mj Villegas, at 15:57 EDT ,
[2021-12-24 16:07] VITALS: RESP 16; O2SAT 99
== END 2021-12-24 16:49 | disposition home or self-care (01) ==
PROVIDERS: Emergency Provider Emergency Medicine; PCP Internal Medicine; Visit Provider Emergency Medicine
DX: R07.89 Other chest pain (principal); I48.0 Paroxysmal atrial fibrillation; R00.2 Palpitations; E78.2 Mixed hyperlipidemia; F17.210 Nicotine dependence, cigarettes, uncomplicated; I25.10 Atherosclerotic heart disease of native coronary artery without angina pectoris; Z95.1 Presence of aortocoronary bypass graft; K21.9 Gastro-esophageal reflux disease without esophagitis; F32.A Depression, unspecified; Z79.82 Long term (current) use of aspirin; Z79.899 Other long term (current) drug therapy; Z71.6 Tobacco abuse counseling
CPT/HCPCS: 71046; 80048; 84484; 85025; 93005; 99284; A4216

== ENCOUNTER 2022-01-01 06:20 | Outpatient (CLI) | payer MEDICARE, MEDICAID, SELFPAY ==
--- NOTE | 2022-01-01 09:42 | STRESSREP ---
Stress Test Report Date: 01-01-2022 Procedure: Exercise tolerance test/imaging study Indications: Chest pain; CAD; PCI; cardiac dysrhythmia Consent: Per the patient Procedure: The patient exercised on a Mauri protocol for 7 minutes and 20 seconds completing Stage II and 1 minute and 20 seconds of Stage III achieving a peak heart rate of 126 bpm (81% predicted maximal heart rate) with a peak blood pressure 160/70 mmHg and a peak MET capacity of 9 METs. The baseline ECG demonstrated sinus bradycardia. The peak exercise ECG demonstrated somatic/motion artifact with no obvious ECG changes. There were no cardiac dysrhythmias pretest, during exercise, or recovery. The functional capacity was considered good. There was no complaint of chest discomfort during exercise or recovery. The examination was discontinued secondary to shortness of breath/dyspnea. Impression: 1. Technically adequate (percent predicted maximal heart rate greater than 85%) exercise tolerance test 2. Peak exercise ECG with somatic/motion artifact with no obvious ECG changes 3. There were no cardiac dysrhythmias pretest, during exercise, or recovery 4. Nuclear images pending Myocardial perfusion imaging study: Technique: The patient was injected with 12.0 mCi of technetium 99m Cardiolite and subsequently rest SPECT Cardiolite nuclear imaging was obtained in the horizontal long, vertical long, and short axis views. The patient exercised on a Mauri protocol for 7 minutes and 20 seconds completing Stage II and 1 minute and 20 seconds of Stage III achieving a peak heart rate of 126 bpm (81% predicted maximal heart rate) with a peak blood pressure 160/70 mmHg and a peak MET capacity of 9 METs. The patient was injected with 33.9 mCi of technetium 99m Cardiolite and subsequently stress SPECT Cardiolite nuclear imaging was obtained in the horizontal long, vertical long, and short axis views. A gated Cardiolite study at peak stress was obtained. Interpretation: Rest and stress SPECT Cardiolite nuclear imaging status post realignment, normalization, and attenuation correction, demonstrates the appearance of relative uniform tracer uptake and myocardial perfusion appearing within normal limits. There is end systolic thickening and brightening. The gated Cardiolite study demonstrates myocardial thickening and inward wall motion. The reported LVEF is 76%. Impression: 1. Rest and stress SPECT Cardiolite nuclear imaging demonstrate relative uniform tracer uptake and myocardial perfusion appearing within normal limits. 2. The gated Cardiolite study reports an LVEF of 76%. This note was generated with Dragon dictation software. It may contain incorrect words, spelling, and punctuation that were not noted in checking the note before signing.
== END 2022-01-01 23:59 | disposition home or self-care (01) ==
LOC: CVS 06:21
PROVIDERS: PCP Internal Medicine; Referring Provider Internal Medicine Cardiovascular Disease; Visit Provider Internal Medicine Cardiovascular Disease
DX: R07.89 Other chest pain (principal); I25.10 Atherosclerotic heart disease of native coronary artery without angina pectoris; Z95.5 Presence of coronary angioplasty implant and graft
CPT/HCPCS: 78452; 93017; A9500; A4216

== ENCOUNTER 2022-01-08 16:18 | Outpatient (CLI) | payer MEDICARE, MEDICAID, SELFPAY ==
[2022-01-08 17:29] LABS: Anion Gap 4 (5-15); BUN 6 mg/dL (7-18); Chloride 103 mmol/L (98-107); Creatinine, Serum 0.86 mg/dL (0.55-1.02); EST Glomerular Filtration Rate 70 mL/min (>60); Est Glom Filt Rate - Afr Amer 85 mL/min (>60); Glucose 95 mg/dL (74-106); Magnesium 1.9 mg/dL (1.6-2.6); Potassium 3.8 mmol/L (3.5-5.1); Sodium Level 139 mmol/L (136-145); T4 Free Direct 1.33 ng/dL (0.76-1.46); Thyroid Stim Hormone (TSH) 0.63 uIU/mL (0.358-3.74)
== END 2022-01-08 23:59 | disposition home or self-care (01) ==
LOC: LAB 16:20
PROVIDERS: PCP Internal Medicine; Visit Provider Nurse Practitioner Gerontology
DX: R00.2 Palpitations (principal)
CPT/HCPCS: 36415; 80048; 83735; 84439; 84443

== ENCOUNTER → 2022-01-30 | Outpatient (CLI) | payer MEDICARE, MEDICAID, SELFPAY | END | disposition home or self-care (01) | LOC: PSN 11:51 | PROVIDERS: PCP Internal Medicine; Referring Provider Nurse Practitioner Gerontology; Visit Provider Nurse Practitioner Gerontology | DX: R00.2 Palpitations (principal) | CPT/HCPCS: 93225; 93226 ==

== ENCOUNTER → 2022-02-02 | Outpatient (CLI) | payer MEDICARE, MEDICAID, SELFPAY ==
[2022-02-02 16:04] LABS: Amphetamine Urine VISTA NEGATIVE (<1000 ng/mL); Barbiturate Urine VISTA NEGATIVE (< 200 ng/mL); Benzodiazepine Urine VISTA NEGATIVE (< 200 ng/mL); Cocaine Urine VISTA NEGATIVE (< 300 ng/mL); Ecstacy Urine VISTA NEGATIVE (< 500 ng/mL); Methadone Urine VISTA NEGATIVE (< 300 ng/mL); PCP Urine VISTA NEGATIVE (< 25 ng/mL); THC Urine VISTA NEGATIVE (< 50 ng/mL); Vista UDS pH Range 6
== END | disposition home or self-care (01) ==
PROVIDERS: PCP Internal Medicine; Visit Provider Anesthesiology Pain Medicine
DX: F11.20 Opioid dependence, uncomplicated (principal)
CPT/HCPCS: 80307

== ENCOUNTER → 2022-12-29 | Outpatient (CLI) | payer MEDICARE, SELFPAY ==
[2022-12-29 17:32] LABS: Amphetamine Urine VISTA NEGATIVE (<1000 ng/mL); Barbiturate Urine VISTA NEGATIVE (< 200 ng/mL); Benzodiazepine Urine VISTA NEGATIVE (< 200 ng/mL); Cocaine Urine VISTA NEGATIVE (< 300 ng/mL); Ecstacy Urine VISTA POSITIVE (< 500 ng/mL); Methadone Urine VISTA NEGATIVE (< 300 ng/mL); PCP Urine VISTA NEGATIVE (< 25 ng/mL); THC Urine VISTA POSITIVE (< 50 ng/mL); Vista UDS pH Range 4
== END | disposition home or self-care (01) ==
LOC: LAB 16:51
PROVIDERS: PCP Internal Medicine; Visit Provider Anesthesiology Pain Medicine
DX: F11.20 Opioid dependence, uncomplicated (principal)
CPT/HCPCS: 80307

== ENCOUNTER → 2023-02-23 | Outpatient (CLI) | payer MEDICARE, SELFPAY ==
[2023-02-23 17:38] LABS: Amphetamine Urine VISTA NEGATIVE (<1000 ng/mL); Barbiturate Urine VISTA NEGATIVE (< 200 ng/mL); Benzodiazepine Urine VISTA NEGATIVE (< 200 ng/mL); Cocaine Urine VISTA NEGATIVE (< 300 ng/mL); Ecstacy Urine VISTA POSITIVE (< 500 ng/mL); Methadone Urine VISTA NEGATIVE (< 300 ng/mL); PCP Urine VISTA NEGATIVE (< 25 ng/mL); THC Urine VISTA NEGATIVE (< 50 ng/mL); Vista UDS pH Range 6
== END | disposition home or self-care (01) ==
LOC: LAB 16:27
PROVIDERS: PCP Internal Medicine; Referring Provider Anesthesiology Pain Medicine; Visit Provider Anesthesiology Pain Medicine
DX: F11.20 Opioid dependence, uncomplicated (principal)
CPT/HCPCS: 80307

== ENCOUNTER 2023-03-31 17:47 | Inpatient (IN) | payer MEDICARE, MEDICAID, SELFPAY ==
[2023-03-31] VITALS (12 sets, daily range): BP systolic 119–159; BP diastolic 45–82; PULSE 61–80; RESP 14–24; TEMP 35.7–37.1; O2SAT 90–97; BMI 30.2; BMI 29.9
--- NOTE | 2023-03-31 18:12 | EX.ED.DYSGE1 ---
HPI History of Present Illness Chief Complaint: Abn Labs Informant: patient Onset/Context/Timing Onset: Month(s) Narrative Narrative: Patient went to her PCP today for a several month history of increasing weakness, shortness of breath, dizziness. She was afraid that she was in A-fib or was having heart problems. Lab work was obtained and her hemoglobin was found to be 5.8. Patient does report some dark stools but states that she is taking iron and did not think much of it. No other obvious source of blood loss. She has had routine colonoscopies with no abnormalities noted. Her most recent colonoscopy was in September. [facility] Medical History (Updated 03/31/23 @ 19:[address] Kina South MD) Atherosclerotic heart disease of [place] coronary artery without angina pectoris Atrial fibrillation Depression GERD (gastroesophageal reflux disease) History of chronic pain Mixed hyperlipidemia Paroxysmal atrial fibrillation Polyp, vocal cord Presence of stent in coronary artery (~05/14/20) Tobacco abuse Home Medications trazodone 100 mg tablet 100 mg PO QHS sleep 12/13/18 [History Last Taken Unknown] pantoprazole 40 mg tablet,delayed release 40 mg PO DAILY reflux 09/22/19 [History Last Taken 05/14/20] sertraline 50 mg tablet 50 mg PO DAILY depression 09/22/19 [History Last Taken Unknown] hydrocodone-acetaminophen 5-325mg 5mg-325mg 1 tab PO BID pain 11/24/19 [History Last Taken Unknown] tizanidine 4 mg capsule 4 mg PO BID PRN muscle spasticity 11/24/19 [History Last Taken Unknown] multivitamin (Daily Multi-Vitamin tablet) 1 tab PO DAILY vitamin 05/03/20 [History Last Taken Unknown] aspirin 81 mg tablet,delayed release 81 mg PO DAILY@0800 05/15/20 [Rx Last Taken Unknown] cholecalciferol (vitamin D3) 125 mcg (5,000 unit) capsule 125 mcg PO DAILY 07/19/20 [History Last Taken Unknown] pravastatin 20 mg tablet 20 mg PO QHS cholesterol #30 tabs 07/02/21 [Rx Last Taken Unknown] biotin 500 mcg capsule 500 mcg PO DAILY 02/24/22 [History Last Taken Unknown] apixaban 5 mg tablet (Eliquis) 5 mg PO BID #180 tabs 02/25/22 [Rx Last Taken Unknown] metoprolol succinate 50 mg tablet,extended release 24 hr See Rx Instructions .Route .COMPLEX #90 TABLETS 06/05/22 [Rx Last Taken Unknown] Allergy/AdvReac Type Severity Reaction Status Date / Time doxycycline AdvReac Unknown Unknown Verified 03/31/23 17:47 Family History Mother Diabetes Myocardial infarction CAD (coronary artery disease) Father Myocardial infarction CAD (coronary artery disease) Sister COPD (chronic obstructive pulmonary disease) Surgical History History of section History of hemorrhoidectomy History of hernia repair History of total hysterectomy Presence of coronary angioplasty implant and graft (~05/14/20) Social History Smoking Status: Current every day smoker tobacco type: cigarettes alcohol intake: current alcohol intake frequency: holidays/special occasions only substance use type: marijuana caffeine: Yes Type: carbonated beverages Number of servings: 3 and coffee Number of servings: 3 ROS ROS ED Constitutional Constitutional ED: Denies chills or fever(s) Eyes Eyes: Denies change in vision or discharge from eye(s) ENT ENT ED: Denies discharge from eye(s), rhinorrhea or sore throat Cardiovascular Cardiovascular: Denies chest pain or palpitations Respiratory/Chest Respiratory/Chest: Reports dyspnea; Denies cough Gastrointestinal Gastrointestinal: Denies abdominal pain, nausea or vomiting Genitourinary Genitourinary ED: Denies dysuria or hematuria Musculoskeletal Musculoskeletal: Denies back pain or extremity pain Integumentary Denies Abrasions or rash Neurologic Neurologic: Reports weakness; Denies headache(s) Psychiatric Psychiatric: Denies anxiety or depression Allergic/Immunologic Allergic/Immunologic ED: Denies lip swelling or urticaria EXAM Physical Exam Const Vital Signs: 03/31/23 17:47 03/31/23 17:59 03/31/23 19:12 Temperature 96.2 F L Temperature Source Temporal Pulse Rate 73 Respiratory Rate 14 18 Blood Pressure 123/82 H 119/45 L Blood Pressure Mean 95 69 Pulse Ox 93 94 Oxygen Delivery Method Room Air Room Air Positive well nourished and well developed General Appearance ED: well developed HEENT Reports normocephalic and head/scalp atraumatic Eyes PERRL and EOMs intact bilaterally Neck supple Chest Wall inspection of chest normal and palpation of chest normal Resp normal respiratory effort and clear to auscultation bilaterally Cardio regular rate and regular rhythm GI normal to inspection, nondistended, normoactive bowel sounds Palpation: soft Extremity normal to inspection Neuro oriented x3 and no sensory deficits noted Sensorium / Orientation: alert Motor Exam: strength 5/5 throughout Psych mental status grossly normal Skin no rashes or lesions noted MDM MDM MDM Narrative Medical decision making narrative: CBC from earlier today reviewed. Hemoglobin is 5.8 and hematocrit 24.0. Platelet count is 212,000. BMP and coags added at this time. Patient typed and crossed for 3 units of blood. EKG and chest x-ray obtained given her significant anemia. Lab Data Attestation: I reviewed the patient's lab results. Labs: Laboratory Results - last 24 hr 03/31/23 03/31/23 03/31/23 18:06 18:06 18:06 PT 15.7 H INR 1.3 APTT 36.2 Sodium 142 Potassium 3.6 Chloride 104 Carbon Dioxide 30.0 Anion Gap 8 BUN 9 Creatinine 0.82 Estim Creat Clear Calc 55.07 Est GFR (MDRD) Af Amer 89 Est GFR (MDRD) Non-Af 74 BUN/Creatinine Ratio 10.9 Glucose 95 Calcium 9.0 Blood Type O POSITIVE Antibody Screen NEGATIVE Crossmatch See Detail Radiography Chest X-Ray - ED: 1 View, Read by ED Physician, Chronic Changes and No Infiltrates Diagnostic Testing: Clinical Impression(s) from Imaging Studies Chest X-Ray 03/31/23 18:40 IMPRESSION: No evidence of active intrathoracic disease. Electronically Signed: Jo Ann Saldana MD at 18:59 EDT , EKG Initial EKG: Attestation: I personally reviewed and interpreted this EKG as follows: Interpretation: Sinus Rhythm (Sinus at 65 with no acute ischemia.) Treatment and Re-Evaluation :: CBC from earlier today reviewed. BNP was also obtained earlier today and was 157. Chemistry studies are unremarkable here. Coags are normal. Stool guaiac does return positive. EKG is sinus rhythm at 65 with no acute ischemia. Chest x-ray per my interpretation reveals no focal infiltrate or significant abnormality. Radiology interpretation is reviewed and agrees. Patient's been typed and crossed for 3 units. I will speak with hospitalist regarding admission as well as GI given her anemia and GI bleed. Discharge Plan Triage Chief Complaint: Abn Labs ED Provider: Kina South Dx/Rx/DC Orders Clinical Impression: GI bleed, Anemia Prescriptions: No Action pantoprazole 40 mg tablet,delayed release (DR/EC) 40 mg PO DAILY sertraline 50 mg tablet 50 mg PO DAILY hydrocodone-acetaminophen 5-325 mg tablet 1 tab PO BID multivitamin [Daily Multi-Vitamin] Tablet 1 tab PO DAILY cholecalciferol (vitamin D3) 125 mcg (5,000 unit) capsule 125 mcg PO DAILY Eliquis 5 mg tablet 5 mg PO BID Qty: 180 3RF trazodone 100 MG tablet 100 mg PO QHS tizanidine 4 mg capsule 4 mg PO BID PRN (Reason: muscle spasticity) aspirin 81 MG tablet 81 mg PO DAILY@0800 0RF biotin 500 mcg capsule 500 mcg PO DAILY pravastatin 20 mg tablet 20 mg PO QHS Qty: 30 6RF metoprolol succinate 50 mg tablet extended release 24 hr See Rx Instructions .ROUTE .COMPLEX Qty: 90 3RF Dose Instruction: take 1 tablet by mouth once daily Rx Instructions: take 1 tablet by mouth once daily Primary Care Provider: Toña Rai Referrals: Toña Rai MD [Primary Care Provider] -
[2023-03-31 18:39] LABS: International Normalized Ratio 1.3; Prothrombin Time (Protime)PT. 15.7 SECONDS (11.7-14.9)
[2023-03-31 18:40] LABS: Partial Thromboplast Time 36.2 Seconds (24.1-36.2)
--- NOTE | 2023-03-31 18:40 | RAD_ITS ---
INDICATION: sob EXAMINATION/TECHNIQUE: X-RAY - XR Chest 1 View AP portable. 6:39 PM COMPARISON: 03/31/2023 at 3:39 PM. FINDINGS: LINES/DEVICES: None. LUNGS: No consolidation. No pneumothorax. MEDIASTINUM: Aorta is atherosclerotic. CARDIAC SILHOUETTE: Not enlarged. BONES AND SOFT TISSUES: No acute abnormalities. RAD/Chest 1 View (Portable) IMPRESSION: No evidence of active intrathoracic disease. Electronically Signed: Jo Ann Saldana MD at 18:59 EDT ,
[2023-03-31 18:49] LABS: Anion Gap 8 (5-15); BUN 9 mg/dL (7-18); BUN/Creat Ratio 10.9 RATIO (10-20); Chloride 104 mmol/L (98-107); Creatinine, Serum 0.82 mg/dL (0.55-1.02); EST Glomerular Filtration Rate 74 mL/min (>60); Est Glom Filt Rate - Afr Amer 89 mL/min (>60); Estimated Creatinine Clearance 55.07 ml/min; Glucose 95 mg/dL (74-106); Potassium 3.6 mmol/L (3.5-5.1); Sodium Level 142 mmol/L (136-145)
--- NOTE | 2023-03-31 19:37 | HP.PCM.HOS_ITS ---
[facility] - General General Date of Admission: 03/31/23 Date of Service: 03/31/23 Chief Complaint: Low hemoglobin level HPI Narrative JOVI HILL, is a 67 F with a significant history of tobacco abuse; depression/anxiety; proximal A-fib on Eliquis and metoprolol; CAD status post stent in 2019; and sciatica on pain regimen who presented to the emergency department with low hemoglobin level. Of note because patient's for about 2 months prior to presentation has had fatigue, shortness of breath, and lightheadedness she walked into her [facility] to report her symptoms as she thought she was in atrial fibrillation. Patient's cardiology has left town; patient is waiting to meet with a new cardiology.. Patient met with a nurse at the [facility]. Patient had a chest x-ray and blood drawn at a [facility]. When she went home she was called to come back to emergency department since her blood count was low. Patient reports occasional dark stools. She reported that because she takes iron pills 2 times in a week so she had attributed her dark stools to the iron pills. She denies any nausea or vomiting. Her daughter who was with patient reports that patient looks pale. Of note in September 2022 patient had an unremarkable colonoscopy with Dr. Hall, General Surgery. Reportedly a year before her last colonoscopy she also had another colonoscopy. Rectal examination at the emergency department by the emergency department doctor revealed occult positive stools, unremarkable rectal examination otherw [facility]. [facility] Medical History Atherosclerotic heart disease of [place] coronary artery without angina pectoris Atrial fibrillation Depression GERD (gastroesophageal reflux disease) History of chronic pain Mixed hyperlipidemia Paroxysmal atrial fibrillation Polyp, vocal cord Presence of stent in coronary artery (~05/14/20) Tobacco abuse Home Medications trazodone 100 mg tablet 100 mg PO QHS sleep 12/13/18 [History Last Taken Unknown] pantoprazole 40 mg tablet,delayed release 40 mg PO DAILY reflux 09/22/19 [History Last Taken 05/14/20] sertraline 50 mg tablet 50 mg PO DAILY depression 09/22/19 [History Last Taken Unknown] hydrocodone-acetaminophen 5-325mg 5mg-325mg 0.5 tab PO BID pain 11/24/19 [History Last Taken Unknown] tizanidine 4 mg capsule 4 mg PO Q8 PRN muscle spasms 11/24/19 [History Last Taken Unknown] aspirin 81 mg tablet,delayed release 81 mg PO DAILY@0800 05/15/20 [Rx Last Taken Unknown] cholecalciferol (vitamin D3) 125 mcg (5,000 unit) capsule 125 mcg PO DAILY 07/19/20 [History Last Taken Unknown] pravastatin 20 mg tablet 20 mg PO QHS cholesterol #30 tabs 07/02/21 [Rx Last Taken Unknown] biotin 500 mcg capsule 500 mg PO DAILY supplement 02/24/22 [History Last Taken Unknown] apixaban 5 mg tablet (Eliquis) 5 mg PO BID #180 tabs 02/25/22 [Rx Last Taken Unknown] metoprolol succinate 50 mg tablet,extended release 24 hr See Rx Instructions .Route .COMPLEX #90 TABLETS 06/05/22 [Rx Last Taken Unknown] Allergy/AdvReac Type Severity Reaction Status Date / Time doxycycline AdvReac Unknown Unknown Verified 03/31/23 17:47 Family History Mother Diabetes Myocardial infarction CAD (coronary artery disease) Father Myocardial infarction CAD (coronary artery disease) Sister COPD (chronic obstructive pulmonary disease) Surgical History History of section History of hemorrhoidectomy History of hernia repair History of total hysterectomy Presence of coronary angioplasty implant and graft (~05/14/20) Social History Smoking Status: Current every day smoker tobacco type: cigarettes alcohol intake: current alcohol intake frequency: holidays/special occasions only substance use type: marijuana caffeine: Yes Type: carbonated beverages Number of servings: 3 and coffee Number of servings: 3 ROS ROS Narrative Pertinent positives and pertinent negatives as noted in HPI. All other systems were reviewed and are negative Vital Signs Vital Signs Vital Signs: 03/31/23 17:47 03/31/23 17:59 03/31/23 19:12 Temperature 96.2 F L Temperature Source Temporal Pulse Rate 73 Respiratory Rate 14 18 Blood Pressure 123/82 H 119/45 L Blood Pressure Mean 95 69 Pulse Ox 93 94 Oxygen Delivery Method Room Air Room Air Weight Weight: 77.3 kg Body Mass Index (BMI) 30.2 Physical Exam Narrative Physical exam: General: Well-nourished, well-developed. Head: Normocephalic, atraumatic, no tenderness Eyes: Vision is grossly intact. EOMI. Pale conjunctiva. ENT, no trauma, moist mucous membranes, no rhinorrhea Neck: Nontender, No thyromegaly. CVS: Regular rate and rhythm. S1-S2 present. No murmur, gallop or rub. Respiratory : clear to auscultation bilaterally, chest wall nontender Abdomen: Soft, nontender, nondistended, normal bowel sounds, no masses : Deferred Back: Nontender, no CVA tenderness. Extremities: Nontender full range of motion, no trauma Skin: Pale, no trauma, abrasions Neuro: Alert, oriented, cranial nerves II through XII grossly intact. Psychiatry: Normal mood. Normal affect. Not depressed. Not anxious. Results Lab / Micro Data Result Diagrams: 03/31/23 18:06 Labs: Laboratory Results - last 24 hr 03/31/23 18:06: PT 15.7 H, INR 1.3, APTT 36.2 03/31/23 18:06: Blood Type O POSITIVE, Antibody Screen NEGATIVE, Crossmatch See Detail 03/31/23 18:06: Sodium 142, Potassium 3.6, Chloride 104, Carbon Dioxide 30.0, Anion Gap 8, BUN 9, Creatinine 0.82, Estim Creat Clear Calc 55.07, Est GFR (MDRD) Af Amer 89, Est GFR (MDRD) Non-Af 74, BUN/Creatinine Ratio 10.9, Glucose 95, Calcium 9.0 Micro: Microbiology 03/31/23 18:35 Stool Stool Occult Blood (MILAN) - Final Occult Blood Positive Radiology Impression Chest X-Ray 03/31/23 18:40 IMPRESSION: No evidence of active intrathoracic disease. Electronically Signed: Jo Ann Saldana MD at 18:59 EDT , Assessment & Plan Assessment/Plan (1) ABLA (acute blood loss anemia): (2) GI bleed: (3) Presence of stent in coronary artery: (4) Tobacco abuse: PLAN: Plan ABLA Hemoglobin on the same day of presentation was 5.8. Review of records show that on 12/24/2021 her was 15.3. Interpretation of chest x-ray by radiology:No evidence of active intrathoracic disease Admit to monitored bed on progressive care unit. IV fluids 3 units of packed red blood cells ordered to be transfused at the ED, continued. Trend H&H. Hold antiplatelets (aspirin) and direct oral anticoagulant (apixaban) No anticoagulants for DVT prophylaxis SCD Hold home p.o. Protonix. Protonix IV bolus and IV drip ordered. N.p.o. except sips of meds after midnight of the presentation. GI consult. Paroxysmal A-fib Patient in sinus rhythm with short [place] interval on presentation. EKG reviewed and showed foregoing. Eliquis held. Metoprolol continued. PCU admission. Presence of stent in coronary artery. Patient with no chest pain. Aspirin held at this time. PCU admission. Denies any chest pain at this time. Tobacco abuse Counseled. DVT prophylaxis: SCDs ordered. Charges/Coding Visit Charges Inpatient E&M: 03341 Init Hosp L3
[2023-03-31] MEDS: traZODone 100 MG Tablet PO (22:25)
[2023-03-31] MEDS: HYDROcodone Bitartrate/Apap 5/325 Tablet PO (22:25)
[2023-03-31] MEDS: Pravastatin 20 MG Tablet PO (22:26)
--- NOTE | 2023-03-31 23:00 | CON.PCM.GI_ITS ---
HPI Consult Data Date of Consult: 03/31/23 HPI Narrative Reason for Consultation: GI bleed HPI Narrative: JOVI HILL, is a 67 F who presents with fatigue and weakness. Patient went to her PCP today for a several month history of increasing weakness, shortness of breath, dizziness.? She was afraid that she was in A-fib or was having heart problems.? Lab work was obtained and her hemoglobin was found to be 5.8.? Patient does report some dark stools but states that she is taking iron and did not think much of it.? No other obvious source of blood loss.? She has had routine colonoscopies with no abnormalities noted.? Her most recent colonoscopy was in September. She does not know how has been anemic. She has a past medical history of atrial fibrillation on Eliquis, CAD status post PTCA with stents in 05/14/2020 on aspirin, nicotine addiction, possible COPD. I was consulted for management of possible GI bleed. [facility] Medical History Atherosclerotic heart disease of [place] coronary artery without angina pectoris Atrial fibrillation Depression GERD (gastroesophageal reflux disease) History of chronic pain Mixed hyperlipidemia Paroxysmal atrial fibrillation Polyp, vocal cord Presence of stent in coronary artery (~05/14/20) Tobacco abuse Home Medications trazodone 100 mg tablet 100 mg PO QHS sleep 12/13/18 [History Last Taken Unknown] pantoprazole 40 mg tablet,delayed release 40 mg PO DAILY reflux 09/22/19 [History Last Taken 05/14/20] sertraline 50 mg tablet 50 mg PO DAILY depression 09/22/19 [History Last Taken Unknown] hydrocodone-acetaminophen 5-325mg 5mg-325mg 0.5 tab PO BID pain 11/24/19 [History Last Taken Unknown] tizanidine 4 mg capsule 4 mg PO Q8 PRN muscle spasms 11/24/19 [History Last Taken Unknown] aspirin 81 mg tablet,delayed release 81 mg PO DAILY@0800 05/15/20 [Rx Last Taken Unknown] cholecalciferol (vitamin D3) 125 mcg (5,000 unit) capsule 125 mcg PO DAILY 07/19/20 [History Last Taken Unknown] pravastatin 20 mg tablet 20 mg PO QHS cholesterol #30 tabs 07/02/21 [Rx Last Taken Unknown] biotin 500 mcg capsule 500 mg PO DAILY supplement 02/24/22 [History Last Taken Unknown] apixaban 5 mg tablet (Eliquis) 5 mg PO BID #180 tabs 02/25/22 [Rx Last Taken Unknown] metoprolol succinate 50 mg tablet,extended release 24 hr See Rx Instructions .Route .COMPLEX #90 TABLETS 06/05/22 [Rx Last Taken Unknown] Allergy/AdvReac Type Severity Reaction Status Date / Time doxycycline AdvReac Unknown Unknown Verified 03/31/23 17:47 Family History Mother Diabetes Myocardial infarction CAD (coronary artery disease) Father Myocardial infarction CAD (coronary artery disease) Sister COPD (chronic obstructive pulmonary disease) Surgical History History of section History of hemorrhoidectomy History of hernia repair History of total hysterectomy Presence of coronary angioplasty implant and graft (~05/14/20) Social History Smoking Status: Current every day smoker tobacco type: cigarettes alcohol intake: current alcohol intake frequency: holidays/special occasions only substance use type: marijuana caffeine: Yes Type: carbonated beverages Number of servings: 3 and coffee Number of servings: 3 ROS ROS Narrative Pertinent positives and pertinent negatives as noted in HPI. All other systems were reviewed and are negative Physical Exam Narrative Physical exam: General: Well-nourished, well-developed. Head: Normocephalic, atraumatic, no tenderness Eyes: Vision is grossly intact. EOMI. Pale conjunctiva. ENT, no trauma, moist mucous membranes, no rhinorrhea Neck: Nontender, No thyromegaly. CVS: Regular rate and rhythm. S1-S2 present. No murmur, gallop or rub. Respiratory : clear to auscultation bilaterally, chest wall nontender Abdomen: Soft, nontender, nondistended, normal bowel sounds, no masses : Deferred Back: Nontender, no CVA tenderness. Extremities: Nontender full range of motion, no trauma Skin: Pale, no trauma, abrasions Neuro: Alert, oriented, cranial nerves II through XII grossly intact. Psychiatry: Normal mood. Normal affect. Not depressed. Not anxious. Lab / Micro Data Result Diagrams: 03/31/23 18:06 Labs: Laboratory Results - last 24 hr 03/31/23 18:06: PT 15.7 H, INR 1.3, APTT 36.2 03/31/23 18:06: Blood Type O POSITIVE, Antibody Screen NEGATIVE, Crossmatch See Detail 03/31/23 18:06: Sodium 142, Potassium 3.6, Chloride 104, Carbon Dioxide 30.0, Anion Gap 8, BUN 9, Creatinine 0.82, Estim Creat Clear Calc 55.07, Est GFR (MDRD) Af Amer 89, Est GFR (MDRD) Non-Af 74, BUN/Creatinine Ratio 10.9, Glucose 95, Calcium 9.0 Micro: Microbiology 03/31/23 18:35 Stool Stool Occult Blood (MILAN) - Final Occult Blood Positive Radiology Impression Chest X-Ray 03/31/23 18:40 IMPRESSION: No evidence of active intrathoracic disease. Electronically Signed: Jo Ann Saldana MD at 18:59 EDT , Assessment & Plan Assessment/Plan (1) ABLA (acute blood loss anemia): (2) GI bleed: (3) Presence of stent in coronary artery: (4) Tobacco abuse: PLAN: Plan 58-year-old with paroxysmal atrial fibrillation on Eliquis, CAD status post PTCA with stent on aspirin, nicotine addiction, possible COPD with new onset anemia and dark stools. Hemoglobin on the same day of presentation was 5.8. Review of records show that on 12/24/2021 her was 15.3. She will undergo an upper endoscopy. She was explained alternatives, risk, be nefits include not withstanding bleeding, infection, sepsis, perforation, need for emergent and . She will have an ASA of 3. Paroxysmal A-fib Patient in sinus rhythm with short [place] interval on presentation. EKG reviewed and showed foregoing. Eliquis held. Metoprolol continued. PCU admission. Presence of stent in coronary artery. Patient with no chest pain. Aspirin held at this time. PCU admission. Denies any chest pain at this time. DVT prophylaxis: SCDs ordered. Charges/Coding Visit Charges Inpatient E&M: 36336 Init Hosp L3
[2023-04-01] VITALS (18 sets, daily range): BP systolic 118–151; BP diastolic 45–88; PULSE 59–78; RESP 15–18; TEMP 36.5–37.2; O2SAT 87–97; BMI 29.9
--- NOTE | 2023-04-01 | ESO_PTH ---
PATIENT: JOVI HILL LOC: [facility] U#:[id number] AGE/SX: 67/F ROOM: [facility] RE03/31/[address]: Dr. Gustavo Fuentes MD : 1955 BED: 1 DIS: 04/05/2023 SPEC #: [id number] RECD: 04/01/23 12:19 STATUS: STEPHON REJono #: [id number] GERALD: 04/01/23 00:[address]: Marcell Hill DEPT: SURGICAL PATHOLOGY RECD BY: Dakota Reyna ENTERED: 04/01/23 12:19 SP TYPE: ESOPH BX OTHR DR: MD Dr. Cesar Garcia MD Dr. Nicholas F Kotsonis, MD Dr. Rahsaan Friend, DO Tissues: Esophagus, NOS Procedures: Special Stain Group II Surgery Specimen Level IV Alcian Blue/PAS (control) Comments: @ Ordering doctor for SUIV edited from to @ by KEVIN at 04/01/23 1423 @ Submitting doctor edited from to @ by RGOOD at 04/01/23 1429 HEADER OPERATION: EGD ([facility]), biopsies PRE-OP DIAGNOSIS: Acute blood loss anemia, GI bleed TISSUE SUBMITTED: Distal esophagus biopsy MICROSCOPIC DIAGNOSIS Distal esophagus, biopsy: Fragments of gastric mucosa with mild chronic inflammation. No evidence of goblet cell metaplasia. AM:jordy 04/02/2023 MICROSCOPIC DESCRIPTION Slides are reviewed. GROSS DESCRIPTION Received in fixative is one container labeled with the patient's name and designated distal esophagus biopsy. The specimen consists of two irregular fragments of light hernandez soft tissue that in aggregate measure 0.3 x 0.3 x 0.1 cm. The specimen is totally submitted in one cassette. / AM:jordy 04/01/2023 TC:3 CPT: 27185, 99793
[2023-04-01] MEDS: 0.9% Normal Saline 1,000 ML 75 ML IV ×2 (04:30→19:30)
--- NOTE | 2023-04-01 06:49 | OP.EGD_ITS ---
Patient Name: Henny Damian Procedure Date: 04/01/2023 6:18 AM Date of : 1955 Age: 67 Procedure: Upper GI endoscopy Indications: Iron deficiency anemia Providers: Marcell Hill DO Medicines: Monitored Anesthesia Care Patient Profile: This is a 67 year old female. Refer to note in patient chart for documentation of history and physical. Patient has symptoms of acute chest pain. Complications: No immediate complications. Procedure: Pre-Anesthesia Assessment: - Prior to the procedure, a History and Physical was performed, and patient medications and allergies were reviewed. The patient is competent. The risks and benefits of the procedure and the sedation options and risks were discussed with the patient. All questions were answered and informed consent was obtained. Patient identification and proposed procedure were verified by the physician. Mental Status Examination: normal. CV Examination: normal. Prophylactic Antibiotics: The patient does not require prophylactic antibiotics. Prior Anticoagulants: The patient has taken no previous anticoagulant or antiplatelet agents. ASA Grade Assessment: II - A patient with mild systemic disease. After reviewing the risks and benefits, the patient was deemed in satisfactory condition to undergo the procedure. The anesthesia plan was to use monitored anesthesia care (MAC). Immediately prior to administration of medications, the patient was re-assessed for adequacy to receive sedatives. The heart rate, respiratory rate, oxygen saturations, blood pressure, adequacy of pulmonary ventilation, and response to care were monitored throughout the procedure. The physical status of the patient was re-assessed after the procedure. After obtaining informed consent, the endoscope was passed under direct vision. Throughout the procedure, the patient's blood pressure, pulse, and oxygen saturations were monitored continuously. The Endoscope was introduced through the mouth, and advanced to the second part of duodenum. The upper GI endoscopy was accomplished without difficulty. The patient tolerated the procedure well. Scope In: 6:37:48 AM Scope Out: 6:42:28 AM Total Procedure Duration Time 0 hours 4 minutes 40 seconds Findings: The Z-line was irregular and was found 38 cm from the incisors. Biopsies were taken with a cold forceps for histology. Verification of patient identification for the specimen was done. Estimated blood loss was minimal. The entire examined stomach was normal. The second portion of the duodenum was normal. Impression: - Z-line irregular, 38 cm from the incisors. Biopsied. - Normal stomach. - Normal second portion of the duodenum. Recommendation: - [facility]. - Full liquid diet. - Continue present medications. - Await pathology results. Procedure Code(s): --- Professional --- 69766, Esophagogastroduodenoscopy, flexible, transoral; with biopsy, single or multiple CPT copyright 2017 [employer]. All rights reserved. The codes documented in this report are preliminary and upon broach setter review may be revised to meet current compliance requirements. Marcell Hill DO 04/01/2023 6:48:52 AM This report has been signed electronically. Number of Addenda: 0 Note Initiated On: 04/01/2023 6:18 AM
--- NOTE | 2023-04-01 06:50 | OP.CCLET_ITS ---
04/01/2023 To[address] Rai [address] [place] [address] Re : Upper GI endoscopy procedure for Henny Rickie Dear Dr. Rai This procedure was performed on March. My impressions and recommendations are as follows: Impressions : - Z-line irregular, 38 cm from the incisors. Biopsied. - Normal stomach. - Normal second portion of the duodenum. Recommendations : - [facility]. - Full liquid diet. - Continue present medications. - Await pathology results. My findings are described in the full procedure note, which is enclosed. If I can be of further assistance, please feel free to contact me at . Sincerely, Marcell Hill, 04/01/2023 6:48:52 AM This report has been signed electronically.
[2023-04-01 07:41] LABS: Absolute Lymphocyte Count 0.95 X10^3/uL (0.83-4.51); Absolute Neutrophil Count 2.8 X10^3/uL (2.0-7.7); Basophil# 0.05 X10^3/uL; Basophil% 1.1 % (0-1); Eosinophil# 0.09 X10^3/uL; Hematocrit 33.4 % (37-47); Hemoglobin 9.5 g/dL (12.0-15.0); Lymphocyte # 0.95 X10^3/ul (0.83-4.51); Lymphocyte % 20.8 % (19-41); Mean Corp Hgb Conc 28.4 g/dL (32-36); Mean Corpuscular Hgb 22.7 pg (27.0-32.0); Mean Corpuscular Volume 79.7 fL (81-99); Mean Platelet Vol. 9.2 fl (6.2-12.0); Monocyte# 0.57 X10^3/uL; Monocyte% 12.5 % (0-10); NRBC Flagged by Analyzer 0.9 % (0-5); Neutrophil # 2.83 X10^3/uL (2.7-7.7); Neutrophil % 62.1 % (47-70); Platelet Count 171 K/mm3 (150-450); RBC Distribution Width CV 18.3 % (11.6-14.6); RBC Distribution Width SD 52.8 fl (35.1-43.9); Red Blood Count 4.19 M/mm3 (4.2-5.4); White Blood Count 4.6 K/mm3 (4.4-11.0)
[2023-04-01 08:03] LABS: Anion Gap 2 (5-15); BUN 8 mg/dL (7-18); BUN/Creat Ratio 11.3 RATIO (10-20); Calcium,Total 8.4 mg/dL (8.5-10.1); Chloride 108 mmol/L (98-107); Creatinine, Serum 0.71 mg/dL (0.55-1.02); EST Glomerular Filtration Rate 88 mL/min (>60); Est Glom Filt Rate - Afr Amer 106 mL/min (>60); Estimated Creatinine Clearance 45.16 ml/min; Glucose 105 mg/dL (74-106); Potassium 3.8 mmol/L (3.5-5.1); Sodium Level 143 mmol/L (136-145)
[2023-04-01 08:06] LABS: International Normalized Ratio 1.2; Prothrombin Time (Protime)PT. 15.4 SECONDS (11.7-14.9)
[2023-04-01 08:07] LABS: Partial Thromboplast Time 34.7 Seconds (24.1-36.2)
--- NOTE | 2023-04-01 09:23 | PN.HOSP_ITS ---
Subjective Subjective Still a bit drowsy from the sedation for her EGD this morning otherwise doing well Objective Data Objective Data Vital Signs: Vital Signs Temp Pulse Resp BP Pulse Ox O2 Del Method O2 Flow Rate 98.1 F 64 17 145/61 H 94 Room Air 2 04/01/23 09:18 04/01/23 09:18 04/01/23 09:18 04/01/23 09:18 04/01/23 09:18 04/01/23 09:18 04/01/23 07:55 Oxygen Flow Rate (L/min) 2 Oxygen Delivery Method Room Air Weight: 169 lb 5.04 oz Body Mass Index (BMI) 29.9 Intake & Output: Intake and Output for Last 24 Hours 03/31/23 04/01/23 04/02/23 03:59 03:59 03:59 Intake Total 835 / 835 632.16 / 632.16 Output Total 0 / 0 Balance 835 / 835 632.16 / 632.16 Lab / Micro Data Result Diagrams: 04/01/23 07:26 04/01/23 07:26 Labs: Laboratory Results - last 24 hr 03/31/23 18:06: PT 15.7 H, INR 1.3, APTT 36.2 03/31/23 18:06: Blood Type O POSITIVE, Antibody Screen NEGATIVE, Crossmatch See Detail 03/31/23 18:06: Sodium 142, Potassium 3.6, Chloride 104, Carbon Dioxide 30.0, Anion Gap 8, BUN 9, Creatinine 0.82, Estim Creat Clear Calc 55.07, Est GFR (MDRD) Af Amer 89, Est GFR (MDRD) Non-Af 74, BUN/Creatinine Ratio 10.9, Glucose 95, Calcium 9.0 04/01/23 07:26: Sodium 143, Potassium 3.8, Chloride 108 H, Carbon Dioxide 33.0 H , Anion Gap 2 L, BUN 8, Creatinine 0.71, Estim Creat Clear Calc 45.16, Est GFR (MDRD) Af Amer 106, Est GFR (MDRD) Non-Af 88, BUN/Creatinine Ratio 11.3, Glucose 105, Calcium 8.4 L 04/01/23 07:26: WBC 4.6, RBC 4.19 L, Hgb 9.5 L, Hct 33.4 L, MCV 79.7 L, MCH 22.7 L, MCHC 28.4 L D, RDW Std Deviation 52.8 H, RDW Coeff of Camilo 18.3 H, Plt Count 171, MPV 9.2, Immature Gran % (Auto) 1.500 H, Neut % (Auto) 62.1, Lymph % (Auto) 20.8, Hitchcock % (Auto) 12.5 H, Eos % (Auto) 2.0, Baso % (Auto) 1.1 H, Absolute Neuts (auto) 2.8, Absolute Lymphs (auto) 0.95, Nucleated RBC % 0.9 04/01/23 07:26: PT 15.4 H, INR 1.2, APTT 34.7 Micro: Microbiology 03/31/23 18:35 Stool Stool Occult Blood (MILAN) - Final Occult Blood Positive Radiography Diagnostic Testing: Radiology Impression Chest X-Ray 03/31/23 18:40 IMPRESSION: No evidence of active intrathoracic disease. Electronically Signed: Jo Ann Saldana MD at 18:59 EDT , Physical Exam Narrative General: Alert but sleepy, Oriented x3, Cooperative, No apparent distress HEENT: Atraumatic, PERRLA, EOMI, Normocephalic Oral: Moist Mucosa Neck: Supple, No JVD Lungs: Diminished, Normal air movement, No rhonchi, No wheeze, No rales Cardiovascular: Regular rate, Regular Rhythm, Normal S1, Normal S2, No murmurs Abdomen: Soft, Non Tender, Non-Distended, No Hepato-splenomegaly Extremities: No edema, Capillary Refill Less than 3 Seconds Skin: No rashes, No breakdown Musculoskeletal: No Tenderness to Palpation of Joints or Extremities Neurological: Motor Exam 5/5 strength throughout, Sensory exam intact to light touch and pain Psych/Mental Status: Normal Affect, Appropriate Assessment & Plan Assessment/Plan (1) ABLA (acute blood loss anemia): (2) GI bleed: (3) Presence of stent in coronary artery: (4) Tobacco abuse: PLAN: Plan 1. Acute blood loss in the can [place] to possible GI bleed ? Appreciate GIs assistance ? EGD was negative for any signs of bleeding or ulcerations either in her stomach or in her duodenum ? We will place her on clear liquids and have her take GoLytely this evening to plan for colonoscopy warning ? Complicated by being on liquid's ? Currently on Protonix drip ? She was transfused 3 units hemoglobin is now 9.5 2. CAD status post stent/paroxysmal A-fib/HTN/HLD ? We will hold her Eliquis given her GI bleed ? We will continue with her metoprolol ? Continue with statin 3. Anxiety/depression/tobacco abuse ? Stable ? Continue with her home medications ? Discussed cessation DVT: SCDs Charges/Coding Visit Charges Inpatient E&M: 88477 Subs Hosp L2
[2023-04-01] MEDS: Sertraline 50 MG Tablet PO (09:26)
[2023-04-01] MEDS: HYDROcodone Bitartrate/Apap 5/325 Tablet PO ×2 (09:26→23:31)
--- NOTE | 2023-04-01 09:49 | PCM.PN.HOSP ---
Reason for Visit Reason for Visit: Diagnoses Acute posthemorrhagic anemia (03/31/23) Gastrointestinal hemorrhage, unspecified (03/31/23) Tobacco use (03/31/23) Presence of coronary angioplasty implant and graft (03/31/23) Subjective Subjective Pt walking back to bed, from bathroom; denies feeling SOB, dizzy or lightheaded; denies abdominal pain or cramping; states desire to go home today as she'd rather not stay another night here. Objective Data Objective Data Vital Signs: Vital Signs Temp Pulse Resp BP Pulse Ox O2 Del Method O2 Flow Rate 98.1 F 64 17 145/61 H 94 Room Air 2 04/01/23 09:18 04/01/23 09:18 04/01/23 09:18 04/01/23 09:18 04/01/23 09:18 04/01/23 09:18 04/01/23 07:55 Oxygen Flow Rate (L/min) 2 Oxygen Delivery Method Room Air Weight: 76.8 kg Body Mass Index (BMI) 29.9 Intake & Output: Intake and Output for Last 24 Hours 03/30/23 03/31/23 04/01/23 23:59 23:59 23:59 Intake Total 400 / 400 1067.16 / 1067.16 Output Total 0 / 0 Balance 400 / 400 1067.16 / 1067.16 Lab / Micro Data Result Diagrams: 04/01/23 07:26 04/01/23 07:26 Labs: Laboratory Results - last 24 hr 03/31/23 18:06: PT 15.7 H, INR 1.3, APTT 36.2 03/31/23 18:06: Blood Type O POSITIVE, Antibody Screen NEGATIVE, Crossmatch See Detail 03/31/23 18:06: Sodium 142, Potassium 3.6, Chloride 104, Carbon Dioxide 30.0, Anion Gap 8, BUN 9, Creatinine 0.82, Estim Creat Clear Calc 55.07, Est GFR (MDRD) Af Amer 89, Est GFR (MDRD) Non-Af 74, BUN/Creatinine Ratio 10.9, Glucose 95, Calcium 9.0 04/01/23 07:26: Sodium 143, Potassium 3.8, Chloride 108 H, Carbon Dioxide 33.0 H, Anion Gap 2 L, BUN 8, Creatinine 0.71, Estim Creat Clear Calc 45.16, Est GFR (MDRD) Af Amer 106, Est GFR (MDRD) Non-Af 88, BUN/Creatinine Ratio 11.3, Glucose 105, Calcium 8.4 L 04/01/23 07:26: WBC 4.6, RBC 4.19 L, Hgb 9.5 L, Hct 33.4 L, MCV 79.7 L, MCH 22.7 L, MCHC 28.4 L D, RDW Std Deviation 52.8 H, RDW Coeff of Camilo 18.3 H, Plt Count 171, MPV 9.2, Immature Gran % (Auto) 1.500 H, Neut % (Auto) 62.1, Lymph % (Auto) 20.8, [place] % (Auto) 12.5 H, Eos % (Auto) 2.0, Baso % (Auto) 1.1 H, Absolute Neuts (auto) 2.8, Absolute Lymphs (auto) 0.95, Nucleated RBC % 0.9 04/01/23 07:26: PT 15.4 H, INR 1.2, APTT 34.7 Micro: Microbiology 03/31/23 18:35 Stool Stool Occult Blood (MILAN) - Final Occult Blood Positive Radiography Diagnostic Testing: Radiology Impression Chest X-Ray 03/31/23 18:40 IMPRESSION: No evidence of active intrathoracic disease. Electronically Signed: Jo Ann Saldana MD at 18:59 EDT , Physical Exam Const Constitutional Narrative: Alert,oriented x3,cooperative,no apparent distress,healthy appearing,morbidly obese. HEENT HEENT Narrative: Normocephalic,dry mucous membranes. Eyes PERRL and EOMs intact bilaterally Neck supple, no JVD and no carotid bruits Resp Resp Narrative: Normal respiratory effort,no retractions,no use of accessory muscles; expiratory wheezing to bilateral lower lobes Cardio regular rate, regular rhythm, S1 normal heart sound, S2 normal heart sound, no murmurs, no rub and no gallops GI normal to inspection, nondistended, normoactive bowel sounds, soft to palpation and non-tender; Negative for hepatosplenomegaly Extremity normal to inspection and full ROM Neuro CN's II-XII intact bilaterally, moves all extremities, no focal motor deficits and no sensory deficits noted Motor Exam: strength 5/5 throughout Psych affect normal Assessment & Plan Assessment/Plan (1) ABLA (acute blood loss anemia): (2) GI bleed: (3) Shortness of breath: PLAN: Plan 1. Acute blood loss anemia secondary to possible GI bleed/shortness of breath 04/01 AM hgb 9.5, up from 5.8 received 3 units of PRBCs transfused overnight, pt with good pink color and denying SOB at this time, on room air 04/01 GI consulted, EGD completed this AM; no active areas of bleeding, biopsy obtained from irregular Z-line In December of 2018, pt had biopsies that showed mild chronic gastritis, negative H.pylori, from the antrum and GERD/chronic inflammation, without intestinal metaplasia, from the distal esophagus 2. CAD/HTN/HLD s/p stent to circumflex, home regimen of apixaban and aspirin on hold d/t anemia on admission continue home regimen of pravastatin 20mg PO qhs for HLD continue home regimen of metoprolol succinate 50mg PO daily for HTN/rate control 3. GERD home regimen of pantoprazole on hold, ordered continuous IV infusion of pantoprazole at 8mg/hr counseled sitting upright after meals for at least 30 minutes to limit reflux 4. Chronic pain/depression continue home regimen of hydrocodone/acetaminophen 3-325 1 tab PO BID and tizanidine 4mg PO q8h PRN for muscle spasm counseled: importance of hydration and dietary fiber intake to reduce bowel complications, taking medicines as directed with appropriate follow-up to pain management clinic for scheduled appointments continue home regimen of sertraline 50mg PO daily and trazodone 100mg PO qhs DVT: SCDs/ambulation
[2023-04-01] MEDS: Metoprolol(XL)Succ 50 MG Tablet PO (10:54)
--- NOTE | 2023-04-01 11:05 | CASEMGMT ---
RN CM Face to Face with patient for initial transition planning/care coordination assessment. RN CM introduced self and role at [facility]. Patient lying in bed, alert and oriented. Patient willing to participate in assessment and is able to answer all questions appropriately. Care providers, pharmacy, and demographics verified. Patient wishes to discharge home, denies need for home health at this time. Patient states she has no further needs or concerns at this time. CM to follow for discharge planning needs that may arise. PCP: Cecelia Specialists: Maxwell, Pain; Franklin, ENT; Rafael, Surgeon Preferred Pharmacy: [facility] Insurance: [facility] Dual Prescription Benefit: yes Living Will/HPOA: none LNOK: Daughter Living Arrangements: Patient lives alone in a 2 story duplex. Patient states she is independent and able to ambulate stairs. Transportation: self, daughter DME/HHC: Patient denies DME in the home. No previous HHC or SNF. Disposition Plan: Patient to discharge home with family support and follow-up plans in place. Cinda JOHNSON, RN, CM
[2023-04-01] MEDS: Ensure Clear 120 ML Liquid PO (13:07)
[2023-04-01 15:35] LABS: Hematocrit 31.8 % (37-47); Hemoglobin 9.4 g/dL (12.0-15.0)
[2023-04-01] MEDS: Electrolyte Solution/Peg's 4000 ML 2000 ML PO (17:43)
[2023-04-01] MEDS: Pravastatin 20 MG Tablet PO (23:32)
[2023-04-01] MEDS: traZODone 100 MG Tablet PO (23:32)
[2023-04-02] VITALS (16 sets, daily range): BP systolic 93–146; BP diastolic 43–79; PULSE 66–93; RESP 14–18; TEMP 36.4–37.1; O2SAT 85–97
[2023-04-02 05:37] LABS: Absolute Lymphocyte Count 1.03 X10^3/uL (0.83-4.51); Absolute Neutrophil Count 2.8 X10^3/uL (2.0-7.7); Basophil# 0.06 X10^3/uL; Basophil% 1.3 % (0-1); Eosinophil# 0.09 X10^3/uL; Hematocrit 32.8 % (37-47); Hemoglobin 9.4 g/dL (12.0-15.0); Lymphocyte # 1.03 X10^3/ul (0.83-4.51); Lymphocyte % 22.4 % (19-41); Mean Corp Hgb Conc 28.7 g/dL (32-36); Mean Corpuscular Volume 80.2 fL (81-99); Mean Platelet Vol. 9.3 fl (6.2-12.0); Monocyte# 0.55 X10^3/uL; NRBC Flagged by Analyzer 0 % (0-5); Neutrophil # 2.84 X10^3/uL (2.7-7.7); Neutrophil % 61.6 % (47-70); Platelet Count 175 K/mm3 (150-450); RBC Distribution Width CV 18.9 % (11.6-14.6); RBC Distribution Width SD 54.5 fl (35.1-43.9); Red Blood Count 4.09 M/mm3 (4.2-5.4); White Blood Count 4.6 K/mm3 (4.4-11.0)
[2023-04-02] MEDS: 0.9% Normal Saline 1,000 ML 75 ML IV (05:48)
[2023-04-02 05:50] LABS: International Normalized Ratio 1.1; Prothrombin Time (Protime)PT. 14.6 SECONDS (11.7-14.9)
[2023-04-02 05:51] LABS: Partial Thromboplast Time 31.8 Seconds (24.1-36.2)
[2023-04-02 06:09] LABS: Anion Gap 4 (5-15); BUN 4 mg/dL (7-18); BUN/Creat Ratio 6.9 RATIO (10-20); Chloride 110 mmol/L (98-107); Creatinine, Serum 0.58 mg/dL (0.55-1.02); EST Glomerular Filtration Rate 110 mL/min (>60); Est Glom Filt Rate - Afr Amer 133 mL/min (>60); Estimated Creatinine Clearance 45.16 ml/min; Glucose 97 mg/dL (74-106); Potassium 3.6 mmol/L (3.5-5.1); Sodium Level 145 mmol/L (136-145)
[2023-04-02] MEDS: Metoprolol(XL)Succ 50 MG Tablet PO (08:26)
[2023-04-02] MEDS: HYDROcodone Bitartrate/Apap 5/325 Tablet PO ×2 (08:26→21:18)
[2023-04-02] MEDS: Sertraline 50 MG Tablet PO (08:27)
[2023-04-02] MEDS: Acetaminophen 325 MG Tablet 650 MG PO (13:40)
--- NOTE | 2023-04-02 16:18 | PCM.PN.HOSP ---
Subjective Subjective Doing well, no issues overnight. She is requiring a little bit of oxygen secondary to history of smoking Objective Data Objective Data Vital Signs: Vital Signs Temp Pulse Resp BP Pulse Ox O2 Del Method O2 Flow Rate 98.8 F 73 17 93/79 93 Nasal Cannula 2 04/02/23 14:56 04/02/23 14:56 04/02/23 14:56 04/02/23 14:56 04/02/23 14:56 04/02/23 15:00 04/02/23 15:00 Oxygen Flow Rate (L/min) 2 Oxygen Delivery Method Nasal Cannula Weight: 169 lb 5.04 oz Body Mass Index (BMI) 29.9 Intake & Output: Intake and Output for Last 24 Hours 04/01/23 04/02/23 04/03/23 03:59 03:59 03:59 Intake Total 835 / 835 2629.66 / 2629.66 1069.33 / 1069.33 Output Total 0 / 0 Balance 835 / 835 2629.66 / 2629.66 1069.33 / 1069.33 Lab / Micro Data Result Diagrams: 04/02/23 05:00 04/02/23 05:00 Labs: Laboratory Results - last 24 hr 04/02/23 05:00: WBC 4.6, RBC 4.09 L, Hgb 9.4 L, Hct 32.8 L, MCV 80.2 L, MCH 23.0 L, MCHC 28.7 L, RDW Std Deviation 54.5 H, RDW Coeff of Camilo 18.9 H, Plt Count 175, MPV 9.3, Immature Gran % (Auto) 0.700, Neut % (Auto) 61.6, Lymph % (Auto) 22.4, [place] % (Auto) 12.0 H, Eos % (Auto) 2.0, Baso % (Auto) 1.3 H, Absolute Neuts (auto) 2.8, Absolute Lymphs (auto) 1.03, Nucleated RBC % 0 04/02/23 05:00: Sodium 145, Potassium 3.6, Chloride 110 H, Carbon Dioxide 31.0, Anion Gap 4 L, BUN 4 L, Creatinine 0.58, Estim Creat Clear Calc 45.16, Est GFR (MDRD) Af Amer 133, Est GFR (MDRD) Non-Af 110, BUN/Creatinine Ratio 6.9 L, Glucose 97, Calcium 8.0 L 04/02/23 05:00: PT 14.6, INR 1.1, APTT 31.8 Micro: Microbiology 03/31/23 18:35 Stool Stool Occult Blood (MILAN) - Final Occult Blood Positive Physical Exam Narrative General: Alert but sleepy, Oriented x3, Cooperative, No apparent distress HEENT: Atraumatic, PERRLA, EOMI, Normocephalic Oral: Moist Mucosa Neck: Supple, No JVD Lungs: Diminished, Normal air movement, No rhonchi, No wheeze, No rales Cardiovascular: Regular rate, Regular Rhythm, Normal S1, Normal S2, No murmurs Abdomen: Soft, Non Tender, Non-Distended, No Hepato-splenomegaly Extremities: No edema, Capillary Refill Less than 3 Seconds Skin: No rashes, No breakdown Musculoskeletal: No Tenderness to Palpation of Joints or Extremities Neurological: Motor Exam 5/5 strength throughout, Sensory exam intact to light touch and pain Psych/Mental Status: Normal Affect, Appropriate Assessment & Plan Assessment/Plan (1) ABLA (acute blood loss anemia): (2) GI bleed: (3) Presence of stent in coronary artery: (4) Tobacco abuse: PLAN: Plan 1. Acute blood loss anemia secondary to possible GI bleed ? Appreciate GIs assistance ? EGD was negative for any signs of bleeding or ulcerations either in her stomach or in her duodenum ? Plan for colonoscopy today ? Complicated by being on Eliquis ? Continue with PPI daily ? She was transfused 3 units hemoglobin is now 9.4 and stable 2. CAD status post stent/paroxysmal A-fib/HTN/HLD ? We will hold her Eliquis given her GI bleed ? We will continue with her metoprolol ? Continue with statin 3. Anxiety/depression/tobacco abuse ? Stable ? Continue with her home medications ? Discussed cessation ? She did require some oxygen overnight will obtain an ambulatory pulse ox and encourage incentive spirometry DVT: SCDs Charges/Coding Visit Charges Inpatient E&M: 21843 Subs Hosp L2
[2023-04-02] MEDS: 0.9% Saline Lock 10 ML Syringe IV (16:27)
[2023-04-02] MEDS: Lactated Ringers 1,000 ML 15 ML IV (17:04)
--- NOTE | 2023-04-02 17:15 | COLBX_PTH ---
PATIENT: JOVI HILL LOC: [facility] U#:[id number] AGE/SX: 67/F ROOM: [facility] RE03/31/[address]: Dr. Gustavo Fuentes MD : 1955 BED: 1 DIS: 04/05/2023 SPEC #: [id number] RECD: 04/02/23 20:12 STATUS: STEPHON BRADEN #: [id number] GERALD: 04/02/23 17:[address]: Marcell Hill DEPT: SURGICAL PATHOLOGY RECD BY: Karen Simms ENTERED: 04/05/23 09:35 SP TYPE: COLON BX OTHR DR: MD Dr. Cesar Garcia MD Dr. Nicholas F Kotsonis, MD Dr. Rahsaan Friend, DO Tissues: A - Cecum, NOS B - Sigmoid colon biopsy Procedures: Surgery Specimen Level IV Comments: @ Ordering doctor for SUIV edited from to @ by KEVIN at 04/05/23 1448 @ Submitting doctor edited from to @ by RGOOD at 04/05/23 1448 HEADER OPERATION: Colonoscopy (MAC) with biopsy and control of bleeding PRE-OP DIAGNOSIS: GI bleed TISSUE SUBMITTED: A ? Cecal cap, B ? Sigmoid polyp MICROSCOPIC DIAGNOSIS A. Cecal cap, biopsy: Fragments of colonic mucosa, no pathologic diagnosis. B. Sigmoid polyp, biopsy: Fragments of tubular adenoma. MEHDI:jordy 04/06/2023 MICROSCOPIC DESCRIPTION Slides are reviewed. GROSS DESCRIPTION A - Received in fixative is one container labeled with the patient's name and designated cecal cap. The specimen consists of multiple irregular fragments of light hernandez soft tissue that in aggregate measure 1.0 x 0.3 x 0.1 cm. The specimen is totally submitted in one cassette. B - Received in fixative is one container labeled with the patient's name and designated sigmoid polyp. The specimen consists of two irregular fragments of light hernandez soft tissue that in aggregate measure 0.8 x 0.4 x 0.1 cm. The specimen is totally submitted in one cassette. / MEHDI:jordy 04/05/2023 TC:1 CPT: 41981 x2
--- NOTE | 2023-04-02 18:15 | OP.COLON_ITS ---
Patient Name: Henny Damian Procedure Date: 04/02/2023 5:43 PM Date of : 1955 Age: 67 Procedure: Colonoscopy Indications: Hematochezia Providers: Marcell Hill DO Medicines: Monitored Anesthesia Care Patient Profile: This is a 67 year old female. Refer to note in patient chart for documentation of history and physical. Last Colonoscopy: 1 year ago. Complications: No immediate complications. Procedure: Pre-Anesthesia Assessment: - Prior to the procedure, a History and Physical was performed, and patient medications and allergies were reviewed. The risks and benefits of the procedure and the sedation options and risks were discussed with the patient. All questions were answered and informed consent was obtained. Patient identification and proposed procedure were verified by the physician. Mental Status Examination: normal. CV Examination: normal. Prophylactic Antibiotics: The patient does not require prophylactic antibiotics. Prior Anticoagulants: The patient has taken no previous anticoagulant or antiplatelet agents. ASA Grade Assessment: II - A patient with mild systemic disease. After reviewing the risks and benefits, the patient was deemed in satisfactory condition to undergo the procedure. The anesthesia plan was to use monitored anesthesia care (MAC). Immediately prior to administration of medications, the patient was re-assessed for adequacy to receive sedatives. The heart rate, respiratory rate, oxygen saturations, blood pressure, adequacy of pulmonary ventilation, and response to care were monitored throughout the procedure. The physical status of the patient was re-assessed after the procedure. After I obtained informed consent, the scope was passed under direct vision. Throughout the procedure, the patient's blood pressure, pulse, and oxygen saturations were monitored continuously. The Colonoscope was introduced through the anus and advanced to the cecum, identified by appendiceal orifice and ileocecal valve. The colonoscopy was performed without difficulty. The patient tolerated the procedure well. The quality of the bowel preparation was fair. Scope In: 5:58:44 PM Scope Withdrawal Time 0 hours 7 minutes 1 second Scope Out: 6:07:52 PM Total Procedure Duration Time 0 hours 9 minutes 8 seconds Findings: The perianal and digital rectal examinations were normal. Many small and large-mouthed diverticula were found in the recto-sigmoid colon and sigmoid colon. Two sessile polyps were found in the sigmoid colon. The polyps were 1 to 2 mm in size. These polyps were removed with a cold snare. Resection and retrieval were complete. Verification of patient identification for the specimen was done. Estimated blood loss was minimal. A single medium-sized localized angiodysplastic lesion with bleeding was found in the cecum. Area was successfully injected with 5 mL of a 1:10,000 solution of epinephrine for drug delivery. Estimated blood loss was minimal. A single small angiodysplastic lesion with bleeding was found in the proximal ascending colon. Coagulation for hemostasis using heater probe was successful. Estimated blood loss was minimal. Non-bleeding internal hemorrhoids were found during retroflexion. The hemorrhoids were mild and Grade I (internal hemorrhoids that do not prolapse). Impression: - Preparation of the colon was fair. - Diverticulosis in the recto-sigmoid colon and in the sigmoid colon. - Two 1 to 2 mm polyps in the sigmoid colon, removed with a cold snare. Resected and retrieved. - A single bleeding colonic angiodysplastic lesion. Injected. - A single bleeding colonic angiodysplastic lesion. Treated with a heater probe. - Non-bleeding internal hemorrhoids. Recommendation: - Repeat colonoscopy in 3 years for surveillance. - Continue present medications. Procedure Code(s): --- Professional --- 33290, 59, Colonoscopy, flexible; with control of bleeding, any method 44916, Colonoscopy, flexible; with removal of tumor(s), polyp(s), or other lesion(s) by snare technique 48496, 59, Colonoscopy, flexible; with directed submucosal injection(s), any substance CPT copyright 2017 [employer]. All rights reserved. The codes documented in this report are preliminary and upon broth setter review may be revised to meet current compliance requirements. Marcell Hill DO 04/02/2023 6:14:55 PM This report has been signed electronically. Number of Addenda: 0 Note Initiated On: 04/02/2023 5:43 PM
--- NOTE | 2023-04-02 18:16 | OP.CCLET_ITS ---
04/02/2023 Toña Rai [address] [place] [address] Re : Colonoscopy procedure for Henny Damian Dear Dr. Rai This procedure was performed on Sunday, April 02, 2023. My impressions and recommendations are as follows: Impressions : - Preparation of the colon was fair. - Diverticulosis in the recto-sigmoid colon and in the sigmoid colon. - Two 1 to 2 mm polyps in the sigmoid colon, removed with a cold snare. Resected and retrieved. - A single bleeding colonic angiodysplastic lesion. Injected. - A single bleeding colonic angiodysplastic lesion. Treated with a heater probe. - Non-bleeding internal hemorrhoids. Recommendations : - Repeat colonoscopy in 3 years for surveillance. - Continue present medications. My findings are described in the full procedure note, which is enclosed. If I can be of further assistance, please feel free to contact me at . Sincerely, Marcell Hill, 04/02/2023 6:14:55 PM This report has been signed electronically.
[2023-04-02] MEDS: traZODone 100 MG Tablet PO (21:18)
[2023-04-02] MEDS: Pravastatin 20 MG Tablet PO (21:18)
[2023-04-03] VITALS (12 sets, daily range): BP systolic 101–147; BP diastolic 49–75; PULSE 62–81; RESP 14–18; TEMP 36.6–37.2; O2SAT 87–95
[2023-04-03] MEDS: Ensure Clear 120 ML Liquid PO (08:21)
[2023-04-03] MEDS: Sertraline 50 MG Tablet PO (08:21)
[2023-04-03] MEDS: Metoprolol(XL)Succ 50 MG Tablet PO (08:22)
[2023-04-03] MEDS: HYDROcodone Bitartrate/Apap 5/325 Tablet PO ×2 (08:22→23:00)
--- NOTE | 2023-04-03 09:25 | DCINST_ITS ---
Discharge Instructions Diet Discharge Diet: Low fat / Low cholesterol Activity Discharge Activity: Return to Normal Activity Dressing / Incision Call your doctor if you observe: Fever of 101 or Higher, Shortness of breath, Dizziness, Fainting spells, Swelling in the ankles, Chest pain and Increased palpitations (irregular heartbeat) Follow Up Care Test Results: Test results from this visit will be discussed in further detail at your follow- up appointment, if applicable. Discharge Plan Admission Admit Date/Time: 03/31/23 19:40 Attending Provider: Gustavo Fuentes Primary Care Provider: Toña aRi Consulting Providers: Marcell Hill ; Cesar Rodriguez Instructions Additional Instructions / Restrictions: Follow-up with your PCP in 3 to 5 days to obtain outpatient lab work to monitor your hemoglobin and anemia. Discharge Orders/Prescriptions Prescriptions: Continued pantoprazole 40 mg tablet,delayed release (DR/EC) 40 mg PO DAILY sertraline 50 mg tablet 50 mg PO DAILY hydrocodone-acetaminophen 5-325 mg tablet 0.5 tab PO BID cholecalciferol (vitamin D3) 125 mcg (5,000 unit) capsule 125 mcg PO DAILY trazodone 100 MG tablet 100 mg PO QHS tizanidine 4 mg capsule 4 mg PO Q8 PRN (Reason: muscle spasms ) aspirin 81 MG tablet 81 mg PO DAILY@0800 0RF biotin 500 mcg capsule 500 mg PO DAILY pravastatin 20 mg tablet 20 mg PO QHS Qty: 30 6RF metoprolol succinate 50 mg tablet extended release 24 hr See Rx Instructions .ROUTE .COMPLEX Qty: 90 3RF Dose Instruction: take 1 tablet by mouth once daily Rx Instructions: take 1 tablet by mouth once daily Held Eliquis 5 mg tablet 5 mg PO BID Qty: 180 3RF Hold Instructions: Resume on 04/05/23. Referrals / Follow Up: Toña Rai MD [Primary Care Provider] - Within 1 Week Disposition Disposition (needs filled in before D/C Order can be placed): Home, Self Care
--- NOTE | 2023-04-03 09:39 | PCM.DC.SUM ---
Providers Date of Admission: 03/31/23 Date of Discharge: 04/05/23 Primary Care Physician: Dr. Toña Rai MD Consultations 03/31/23 20:38 Consult: Gastroenterology Routine Consulting Provider: SergioMarcell Reason for Consult: abla EMERGENT Consult: No MD Notified: Yes Date Notified: 03/31/23 Time Notified: 19:50 Method of Notification: ED Physician Initiated Reason For Visit: ABLA Diagnosis Discharge Diagnosis (1) ABLA (acute blood loss anemia): Status: Acute Code(s): D62 - Acute posthemorrhagic anemia (2) GI bleed: Status: Acute Code(s): K92.2 - Gastrointestinal hemorrhage, unspecified (3) Presence of stent in coronary artery: Status: Chronic Code(s): Z95.5 - Presence of coronary angioplasty implant and graft (4) Tobacco abuse: Status: Chronic Code(s): Z72.0 - Tobacco use Medications at Discharge Home Medications trazodone 100 mg tablet 150 mg PO QHS sleep 12/13/18 pantoprazole 40 mg tablet,delayed release 40 mg PO DAILY reflux 09/22/19 sertraline 50 mg tablet 50 mg PO DAILY depression 09/22/19 hydrocodone-acetaminophen 5-325mg 5mg-325mg 0.5 tab PO BID pain 11/24/19 tizanidine 4 mg capsule 4 mg PO Q8 PRN muscle spasms 11/24/19 aspirin 81 mg tablet,delayed release 81 mg PO DAILY@0800 05/15/20 cholecalciferol (vitamin D3) 125 mcg (5,000 unit) capsule 125 mcg PO DAILY 07/19/20 pravastatin 20 mg tablet 20 mg PO QHS cholesterol #30 tabs 07/02/21 biotin 500 mcg capsule 500 mg PO DAILY supplement 02/24/22 apixaban 5 mg tablet (Eliquis) 5 mg PO BID #180 tabs 02/25/22 metoprolol succinate 50 mg tablet,extended release 24 hr See Rx Instructions .Route .COMPLEX #90 TABLETS 06/05/22 ferrous sulfate 325 mg (65 mg iron) tablet 325 mg PO DAILY anemia 04/04/23 gabapentin 100 mg capsule 100 mg PO BID sciatica 04/04/23 Hospital Course Operations None Procedures Colonoscopy and EGD Summary of Care Provided Minutes Spent on Discharge: 33 Hospital Course: Per HPI: JOVI HILL, is a 67 F with a significant history of tobacco abuse; depression/anxiety; proximal A-fib on Eliquis and metoprolol; CAD status post stent in 2019; and sciatica on pain regimen who presented to the emergency department with low hemoglobin level.? Of note because patient's for about 2 months prior to presentation? 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 Patient's cardiology has left town; patient is waiting to meet with a new cardiology..? Patient met with a nurse at the entry level mechanical engineer office. Patient had a chest x-ray and blood drawn at a entry level mechanical engineer office.? When she went home she was called to come back to emergency department since her blood count was low. Patient reports occasional dark stools.? She reported that because she takes iron pills 2 times in a week so she had attributed her dark stools to the iron pills. She denies any nausea or vomiting. Her daughter who was with patient reports? that patient looks pale. Of note in September 2022 patient had an unremarkable colonoscopy with Dr. Hall, General Surgery.? Reportedly a year before her last colonoscopy she also had another colonoscopy. Rectal examination at the emergency department by the emergency department doctor revealed occult positive stools, unremarkable rectal examination otherwise. Hospital Course: 1. Acute blood loss anemia secondary to colonic AVM?67-year-old female presents to the hospital with acute anemia. She is on Eliquis for A-fib and initially had an EGD which was unremarkable. She was prepped for colonoscopy and she had a colonoscopy initially which demonstrated 2 colonic angiodysplastic lesions that were treated. She did develop repeat bleeding and a drop in her hemoglobin from 9.4 to 7.8. She was transfused another 3 units and was prepped again for colonoscopy which occurred today on the day of discharge, this demonstrated some oozing ulcers in her rectosigmoid colon as well as nonbleeding hemorrhoids. These were treated and gastroenterology felt that she would be okay for discharge. She is feeling well today and hemoglobin is stable at 9.8. She did develop some slight hypoxia and she has been 90% on room air at rest at times however she is needing oxygen when she is sleeping and and she needs 2-4 L with ambulation. This is likely secondary to atelectasis, as well as volume from blood transfusions, as she has not been very ambulatory while here in the hospital. We will hold her Rubaquis on discharge for another 2 days. And I recommend that she follow-up with her PCP in 3 to 5 days to monitor her hemoglobin. I discussed with her the plan for discharge and she expressed understanding of the risk benefits going home and would like to go home today. 2. Coronary artery disease status post stent, paroxysmal A-fib, hypertension, hyperlipidemia, anxiety, depression, tobacco abuse are all chronic medical conditions which complicate her care. Her home medications were continued where appropriate Physical Exam Narrative General: Alert but sleepy, Oriented x3, Cooperative, No apparent distress HEENT: Atraumatic, PERRLA, EOMI, Normocephalic Oral: Moist Mucosa Neck: Supple, No JVD Lungs: Diminished, Normal air movement, No rhonchi, No wheeze, No rales Cardiovascular: Regular rate, Regular Rhythm, Normal S1, Normal S2, No murmurs Abdomen: Soft, Non Tender, Non-Distended, No Hepato-splenomegaly Extremities: No edema, Capillary Refill Less than 3 Seconds Skin: No rashes, No breakdown Musculoskeletal: No Tenderness to Palpation of Joints or Extremities Neurological: Motor Exam 5/5 strength throughout, Sensory exam intact to light touch and pain Psych/Mental Status: Normal Affect, Appropriate Weight / BMI Weight Weight: 169 lb 5.04 oz Body Mass Index (BMI) 29.9 ABG / Lab / Microbiology Data Result Diagrams: 04/05/23 04:15 04/05/23 04:15 Microbiology: Microbiology 03/31/23 18:35 Stool Stool Occult Blood (MILAN) - Final Occult Blood Positive D/C Instructions Discharge Diet: Low fat / Low cholesterol Call your doctor if you observe: Fever of 101 or Higher, Shortness of breath, Dizziness, Fainting spells, Swelling in the ankles, Chest pain and Increased palpitations (irregular heartbeat) Meaningful Use Info Meaningful Use Diagnoses (Choose all that apply): None applicable Discharge Plan Admission Admit Date/Time: 03/31/23 19:40 Attending Provider: Gustavo Fuentes Primary Care Provider: Toña Ria Consulting Providers: Marcell Hill ; Cesar Rodriguez Instructions Additional Instructions / Restrictions: Follow-up with your PCP in 3 to 5 days to obtain outpatient lab work to monitor your hemoglobin and anemia. Discharge Orders/Prescriptions Prescriptions: Continued pantoprazole 40 mg tablet,delayed release (DR/EC) 40 mg PO DAILY sertraline 50 mg tablet 50 mg PO DAILY hydrocodone-acetaminophen 5-325 mg tablet 0.5 tab PO BID cholecalciferol (vitamin D3) 125 mcg (5,000 unit) capsule 125 mcg PO DAILY trazodone 100 MG tablet 150 mg PO QHS tizanidine 4 mg capsule 4 mg PO Q8 PRN (Reason: muscle spasms ) aspirin 81 MG tablet 81 mg PO DAILY@0800 0RF biotin 500 mcg capsule 500 mg PO DAILY pravastatin 20 mg tablet 20 mg PO QHS Qty: 30 6RF metoprolol succinate 50 mg tablet extended release 24 hr See Rx Instructions .ROUTE .COMPLEX Qty: 90 3RF Dose Instruction: take 1 tablet by mouth once daily Rx Instructions: take 1 tablet by mouth once daily Held Eliquis 5 mg tablet 5 mg PO BID Qty: 180 3RF Hold Instructions: Resume on 04/05/23. No Action ferrous sulfate 325 mg (65 mg iron) Tablet 325 mg PO DAILY gabapentin 100 mg Capsule 100 mg PO BID Referrals / Follow Up: Toña Rai MD [Primary Care Provider] - Within 1 Week Disposition Disposition (needs filled in before D/C Order can be placed): Home, Self Care Charges/Coding Visit Charges Inpatient E&M: 82757 Disch Hosp >30min
--- NOTE | 2023-04-03 09:44 | PN.GI_ITS ---
Subjective Subjective Patient underwent a colonoscopy yesterday after undergoing an EGD 2 days ago. Her colonoscopy revealed bleeding angiodysplastic lesion in cecum and ascending colon that was treated endoscopically. She also had 2 polyps that were removed. She has not seen any more signs of bleeding. There was some question of po ssible stigmata of diverticular bleed but that was not confirmed. Objective Data Objective Data Vital Signs: Vital Signs Temp Pulse Resp BP Pulse Ox O2 Del Method O2 Flow Rate 98.5 F 74 16 123/53 H 93 Nasal Cannula 2 04/03/23 08:57 04/03/23 08:57 04/03/23 08:57 04/03/23 08:57 04/03/23 08:57 04/03/23 08:57 04/03/23 08:57 Oxygen Flow Rate (L/min) [ 2 AMBULATING with Oxygen #1] Oxygen Flow Rate (L/min) 2 Oxygen Delivery Method Nasal Cannula Weight: 169 lb 5.04 oz Body Mass Index (BMI) 29.9 Intake & Output: Intake and Output for Last 24 Hours 04/01/23 04/02/23 04/03/23 23:59 23:59 23:59 Intake Total 3064.66 / 3064.66 1941.91 / 1941.91 Output Total 0 / 0 0 / 0 Balance 3064.66 / 3064.66 1941.91 / 1941.91 Lab / Micro Data Result Diagrams: 04/02/23 05:00 04/02/23 05:00 Micro: Microbiology 03/31/23 18:35 Stool Stool Occult Blood (MILAN) - Final Occult Blood Positive Physical Exam Narrative General: Alert but sleepy, Oriented x3, Cooperative, No apparent distress HEENT: Atraumatic, PERRLA, EOMI, Normocephalic Oral: Moist Mucosa Neck: Supple, No JVD Lungs: Diminished, Normal air movement, No rhonchi, No wheeze, No rales Cardiovascular: Regular rate, Regular Rhythm, Normal S1, Normal S2, No murmurs Abdomen: Soft, Non Tender, Non-Distended, No Hepato-splenomegaly Extremities: No edema, Capillary Refill Less than 3 Seconds Skin: No rashes, No breakdown Musculoskeletal: No Tenderness to Palpation of Joints or Extremities Neurological: Motor Exam 5/5 strength throughout, Sensory exam intact to light touch and pain Psych/Mental Status: Normal Affect, Appropriate Assessment & Plan Assessment/Plan (1) ABLA (acute blood loss anemia): (2) GI bleed: (3) Presence of stent in coronary artery: (4) Tobacco abuse: PLAN: Plan Acute blood loss anemia secondary to lower GI bleed ? She is status post transfusion at 3 units of packed red blood cells and hemoglobin seems to be stable. - Patient is okay to go back on Eliquis therapy and hold aspirin therapy for approximately 30 days - She will need to undergo capsule endoscopy as an outpatient Charges/Coding Visit Charges Inpatient E&M: 43815 Subs Hosp L2
--- NOTE | 2023-04-03 12:06 | CT_ITS ---
INDICATION: bloody stools EXAMINATION: CTA abdomen and pelvis - TECHNIQUE: Routine abdominal CT angiogram protocol was performed with IV contrast. MIP and 3-D images provided. A radiation dose optimization technique was used for this scan. IV Contrast dosage and agent: RADIATION DOSAGE (If Supplied By Facility): CTDIvol = ( 27.5 ) mGy, DLP = ( 977.11 ) mGycm COMPARISON: No prior examinations are available for comparison. FINDINGS: Lung bases: Atelectatic changes in the right lower lobe. Normal heart size. Liver: Hepatomegaly. No focal lesions definitely identified. Gallbladder: Pericholecystic stranding without evidence of cholelithiasis. Spleen: Normal. Adrenal gland: Normal. Kidneys: Normal. No hydronephrosis or stone formation. Pancreas:Normal. Bowel gas pattern: Diffuse thickening of the colon probably due to underdistention. Colitis cannot be excluded. Sigmoid diverticulosis without evidence of acute diverticulitis.. Mild right paracolic stranding. Appendix: No evidence of acute appendicitis. Free air: None. Free fluid: Trace of free fluid in the pelvis. Pelvis: Pelvic organs: No mass lesion noted. Bone survey: No aggressive bony lesions. No acute fractures. Adenopathy: No significant pathologic adenopathy detected. Other: None. Vascular: Atherosclerotic calcifications of the abdominal aorta and iliac arteries without evidence of aneurysm. Patent celiac axis, superior mesenteric artery and renal arteries. Atherosclerotic calcifications of the origin of the renal arteries bilaterally. Patent inferior mesenteric artery. CT/CTA Abd/Pelvis W/WO Contrast IMPRESSION: 1. Pericholecystic stranding and thickening of the orbital wall without evidence of gallstones. 2. Nonspecific mild right paracolic stranding could reflect mild inflammatory changes. 3. Thickening the colon likely due to under distention. Colitis is less likely. 4. Diverticulosis without evidence of acute diverticulitis. 5. Atherosclerotic calcifications of the abdominal aorta without evidence of aneurysm. Electronically Signed: Galen Rainey MD at 14:17 EDT ,
[2023-04-03 13:04] LABS: Hematocrit 28.2 % (37-47); Hemoglobin 7.8 g/dL (12.0-15.0)
--- NOTE | 2023-04-03 13:34 | MDS.RN ---
pt off floor for CTA
--- NOTE | 2023-04-03 14:40 | PCM.PN.HOSP ---
Subjective Subjective Has more bright red blood per rectum Objective Data Objective Data Vital Signs: Vital Signs Temp Pulse Resp BP Pulse Ox O2 Del Method O2 Flow Rate 98.5 F 74 16 123/53 H 92 Nasal Cannula 2 04/03/23 08:57 04/03/23 08:57 04/03/23 08:57 04/03/23 08:57 04/03/23 11:40 04/03/23 10:00 04/03/23 11:40 Oxygen Flow Rate (L/min) [ 2 AMBULATING with Oxygen #1] Oxygen Flow Rate (L/min) 2 Oxygen Delivery Method Nasal Cannula Weight: 169 lb 5.04 oz Body Mass Index (BMI) 29.9 Intake & Output: Intake and Output for Last 24 Hours 04/02/23 04/03/23 04/04/23 03:59 03:59 03:59 Intake Total 2629.66 / 2629.66 1941.91 / 1941.91 Output Total 0 / 0 0 / 0 350 / 350 Balance 2629.66 / 2629.66 1941.91 / 1941.91 -350 / -350 Lab / Micro Data Result Diagrams: 04/03/23 12:57 04/02/23 05:00 Labs: Laboratory Results - last 24 hr 04/03/23 12:57: Hgb 7.8 L, Hct 28.2 L Micro: Microbiology 03/31/23 18:35 Stool Stool Occult Blood (MILAN) - Final Occult Blood Positive Radiography Diagnostic Testing: Radiology Impression Abdomen/Pelvis CTA 04/03/23 12:06 IMPRESSION: 1. Pericholecystic stranding and thickening of the orbital wall without evidence of gallstones. 2. Nonspecific mild right paracolic stranding could reflect mild inflammatory changes. 3. Thickening the colon likely due to under distention. Colitis is less likely. 4. Diverticulosis without evidence of acute diverticulitis. 5. Atherosclerotic calcifications of the abdominal aorta without evidence of aneurysm. Electronically Signed: Galen Rainey MD at 14:17 EDT , Physical Exam Narrative General: Alert but sleepy, Oriented x3, Cooperative, No apparent distress HEENT: Atraumatic, PERRLA, EOMI, Normocephalic Oral: Moist Mucosa Neck: Supple, No JVD Lungs: Diminished, Normal air movement, No rhonchi, No wheeze, No rales Cardiovascular: Regular rate, Regular Rhythm, Normal S1, Normal S2, No murmurs Abdomen: Soft, Non Tender, Non-Distended, No Hepato-splenomegaly Extremities: No edema, Capillary Refill Less than 3 Seconds Skin: No rashes, No breakdown Musculoskeletal: No Tenderness to Palpation of Joints or Extremities Neurological: Motor Exam 5/5 strength throughout, Sensory exam intact to light touch and pain Psych/Mental Status: Normal Affect, Appropriate Assessment & Plan Assessment/Plan (1) ABLA (acute blood loss anemia): (2) GI bleed: (3) Presence of stent in coronary artery: (4) Tobacco abuse: PLAN: Plan 1. Acute blood loss anemia secondary to possible GI bleed ? Appreciate GIs assistance ? EGD was negative for any signs of bleeding or ulcerations either in her stomach or in her duodenum ? Colonoscopy demonstrated multiple diverticuli as well as to AVMs that were treated unfortunately she may have had a diverticular bleed given the fact that repeat H&H today has had a hemoglobin drop from 9.4-7.8 we will transfuse 1 unit ? CT of her abdomen and pelvis with contrast was unremarkable ? Complicated by being on Eliquis ? Continue with PPI daily ? She was transfused 3 units already we will recheck morning, INR yesterday was 1.1 2. CAD status post stent/paroxysmal A-fib/HTN/HLD ? We will hold her Eliquis given her GI bleed ? We will continue with her metoprolol ? Continue with statin 3. Anxiety/depression/tobacco abuse ? Stable ? Continue with her home medications ? Discussed cessation ? She did require some oxygen overnight will obtain an ambulatory pulse ox and encourage incentive spirometry DVT: SCDs Charges/Coding Visit Charges Inpatient E&M: 53228 Subs Hosp L2
[2023-04-03] MEDS: Pravastatin 20 MG Tablet PO (23:01)
[2023-04-03] MEDS: traZODone 100 MG Tablet PO (23:01)
[2023-04-04] VITALS (12 sets, daily range): BP systolic 112–158; BP diastolic 53–75; PULSE 52–72; RESP 16–18; TEMP 36.4–37.3; O2SAT 88–99
[2023-04-04 05:43] LABS: Absolute Lymphocyte Count 1.02 X10^3/uL (0.83-4.51); Absolute Neutrophil Count 1.5 X10^3/uL (2.0-7.7); Basophil# 0.03 X10^3/uL; Eosinophil# 0.13 X10^3/uL; Eosinophils% 4.3 % (0-5); Hematocrit 25.7 % (37-47); Hemoglobin 7.4 g/dL (12.0-15.0); Lymphocyte # 1.02 X10^3/ul (0.83-4.51); Lymphocyte % 33.6 % (19-41); Mean Corp Hgb Conc 28.8 g/dL (32-36); Mean Corpuscular Volume 83.4 fL (81-99); Mean Platelet Vol. 9.7 fl (6.2-12.0); Monocyte% 13.2 % (0-10); NRBC Flagged by Analyzer 0 % (0-5); Neutrophil # 1.45 X10^3/uL (2.7-7.7); Neutrophil % 47.6 % (47-70); POSITIVE MORPHOLOGY YES; Platelet Count 160 K/mm3 (150-450); RBC Distribution Width CV 20.3 % (11.6-14.6); RBC Distribution Width SD 59.2 fl (35.1-43.9); Red Blood Count 3.08 M/mm3 (4.2-5.4)
[2023-04-04 05:52] LABS: Differential Indicated SCAN CRITERIA MET
[2023-04-04 06:31] LABS: Anisocytosis 1+; Differential Comment SCANNED; Macrocytosis 1+
[2023-04-04] MEDS: HYDROcodone Bitartrate/Apap 5/325 Tablet PO ×2 (08:43→23:08)
[2023-04-04] MEDS: Sertraline 50 MG Tablet PO (08:45)
[2023-04-04] MEDS: Metoprolol(XL)Succ 50 MG Tablet PO (08:45)
--- NOTE | 2023-04-04 10:28 | PN.HOSP_ITS ---
Subjective Subjective Resting comfortably, no issues overnight. Hemoglobin did drop to 7.4 from 7.8 yesterday after transfusion. Objective Data Objective Data Vital Signs: Vital Signs Temp Pulse Resp BP Pulse Ox O2 Del Method O2 Flow Rate 99.1 F 72 16 112/53 L 93 Nasal Cannula 2 04/04/23 08:58 04/04/23 08:58 04/04/23 08:58 04/04/23 08:58 04/04/23 08:58 04/04/23 08:58 04/04/23 08:58 Oxygen Flow Rate (L/min) [ 2 AMBULATING with Oxygen #1] Oxygen Flow Rate (L/min) 2 Oxygen Delivery Method Nasal Cannula Weight: 169 lb 5.04 oz Body Mass Index (BMI) 29.9 Intake & Output: Intake and Output for Last 24 Hours 04/03/23 04/04/23 04/05/23 03:59 03:59 03:59 Intake Total 1941.91 / 1941.91 1300 / 1300 250 / 250 Output Total 0 / 0 350 / 350 Balance 1941.91 / 1941.91 950 / 950 250 / 250 Lab / Micro Data Result Diagrams: 04/04/23 04:39 04/02/23 05:00 Labs: Laboratory Results - last 24 hr 03/31/23 18:06: Crossmatch See Detail 04/03/23 12:57: Hgb 7.8 L, Hct 28.2 L 04/04/23 04:39: WBC 3.0 L, RBC 3.08 L, Hgb 7.4 L, Hct 25.7 L, MCV 83.4, MCH 24.0 L, MCHC 28.8 L, RDW Std Deviation 59.2 H, RDW Coeff of Camilo 20.3 H, Plt Count 160, MPV 9.7, Immature Gran % (Auto) 0.300, Neut % (Auto) 47.6, Lymph % (Auto) 33.6, [place] % (Auto) 13.2 H, Eos % (Auto) 4.3, Baso % (Auto) 1.0, Absolute Neuts (auto) 1.5 L, Absolute Lymphs (auto) 1.02, Nucleated RBC % 0, Differential Comment SCANNED, Anisocytosis 1+, Macrocytosis 1+ 04/04/23 08:10: Blood Type O POSITIVE, Antibody Screen NEGATIVE, Crossmatch See Detail Micro: Microbiology 03/31/23 18:35 Stool Stool Occult Blood (MILAN) - Final Occult Blood Positive Radiography Diagnostic Testing: Radiology Impression Abdomen/Pelvis CTA 04/03/23 12:06 IMPRESSION: 1. Pericholecystic stranding and thickening of the orbital wall without evidence of gallstones. 2. Nonspecific mild right paracolic stranding could reflect mild inflammatory changes. 3. Thickening the colon likely due to under distention. Colitis is less likely. 4. Diverticulosis without evidence of acute diverticulitis. 5. Atherosclerotic calcifications of the abdominal aorta without evidence of aneurysm. Electronically Signed: Galen Rainey MD at 14:17 EDT , Physical Exam Narrative General: Alert but sleepy, Oriented x3, Cooperative, No apparent distress HEENT: Atraumatic, PERRLA, EOMI, Normocephalic Oral: Moist Mucosa Neck: Supple, No JVD Lungs: Diminished, Normal air movement, No rhonchi, No wheeze, No rales Cardiovascular: Regular rate, Regular Rhythm, Normal S1, Normal S2, No murmurs Abdomen: Soft, Non Tender, Non-Distended, No Hepato-splenomegaly Extremities: No edema, Capillary Refill Less than 3 Seconds Skin: No rashes, No breakdown Musculoskeletal: No Tenderness to Palpation of Joints or Extremities Neurological: Motor Exam 5/5 strength throughout, Sensory exam intact to light touch and pain Psych/Mental Status: Normal Affect, Appropriate Assessment & Plan Assessment/Plan (1) ABLA (acute blood loss anemia): (2) GI bleed: (3) Presence of stent in coronary artery: (4) Tobacco abuse: PLAN: Plan 1. Acute blood loss anemia secondary to GI bleed from AVMs and now a possible diverticular bleed ? Appreciate GIs assistance ? EGD was negative for any signs of bleeding or ulcerations either in her stomach or in her duodenum ?She dropped after a unit of blood yesterday and her hemoglobin is 7.4. We will transfuse 2 more units today we will start her on a clear liquid diet and prep her for repeat colonoscopy in the morning ? CT of her abdomen and pelvis with contrast was unremarkable ? Complicated by being on Eliquis ? Continue with PPI daily ? She was transfused 4 units already 2. CAD status post stent/paroxysmal A-fib/HTN/HLD ? We will hold her Eliquis given her GI bleed ? We will continue with her metoprolol ? Continue with statin 3. Anxiety/depression/tobacco abuse ? Stable ? Continue with her home medications ? Discussed cessation ? She did require some oxygen overnight will obtain an ambulatory pulse ox and encourage incentive spirometry DVT: SCDs Charges/Coding Visit Charges Inpatient E&M: 85658 Subs Hosp L2
[2023-04-04] MEDS: Electrolyte Solution/Peg's 4000 ML 2000 ML PO (14:37)
[2023-04-04] MEDS: Pravastatin 20 MG Tablet PO (23:08)
[2023-04-04] MEDS: traZODone 100 MG Tablet PO (23:08)
[2023-04-04] MEDS: Lactated Ringers 1,000 ML 15 ML IV (23:14)
[2023-04-05] VITALS (12 sets, daily range): BP systolic 119–150; BP diastolic 49–87; PULSE 59–106; RESP 16–18; TEMP 36.4–37.2; O2SAT 84–95; BMI 29.9
[2023-04-05 05:22] LABS: Absolute Lymphocyte Count 1.11 X10^3/uL (0.83-4.51); Absolute Neutrophil Count 1.9 X10^3/uL (2.0-7.7); Basophil# 0.05 X10^3/uL; Basophil% 1.4 % (0-1); Eosinophil# 0.18 X10^3/uL; Eosinophils% 4.9 % (0-5); Hematocrit 31.9 % (37-47); Hemoglobin 9.8 g/dL (12.0-15.0); Lymphocyte # 1.11 X10^3/ul (0.83-4.51); Mean Corp Hgb Conc 30.7 g/dL (32-36); Mean Corpuscular Hgb 26.1 pg (27.0-32.0); Mean Corpuscular Volume 85.1 fL (81-99); Mean Platelet Vol. 9.9 fl (6.2-12.0); Monocyte# 0.46 X10^3/uL; Monocyte% 12.4 % (0-10); NRBC Flagged by Analyzer 0 % (0-5); Neutrophil # 1.89 X10^3/uL (2.7-7.7); POSITIVE MORPHOLOGY YES; Platelet Count 166 K/mm3 (150-450); RBC Distribution Width CV 20.5 % (11.6-14.6); RBC Distribution Width SD 59.7 fl (35.1-43.9); Red Blood Count 3.75 M/mm3 (4.2-5.4); White Blood Count 3.7 K/mm3 (4.4-11.0)
[2023-04-05 05:40] LABS: International Normalized Ratio 1.2; Prothrombin Time (Protime)PT. 14.7 SECONDS (11.7-14.9)
[2023-04-05 05:41] LABS: Partial Thromboplast Time 34.2 Seconds (24.1-36.2)
[2023-04-05 05:53] LABS: Anion Gap 3 (5-15); BUN 3 mg/dL (7-18); Calcium,Total 8.2 mg/dL (8.5-10.1); Chloride 107 mmol/L (98-107); EST Glomerular Filtration Rate 130 mL/min (>60); Est Glom Filt Rate - Afr Amer 158 mL/min (>60); Estimated Creatinine Clearance 45.16 ml/min; Glucose 83 mg/dL (74-106); Potassium 3.4 mmol/L (3.5-5.1); Sodium Level 143 mmol/L (136-145)
--- NOTE | 2023-04-05 05:55 | EKG12_ITS ---
Test Reason : PRE-OP Blood Pressure : / mmHG Vent. Rate : 062 BPM Atrial Rate : 062 BPM P-R Int : 148 ms QRS Dur : 094 ms QT Int : 452 ms P-R-T Axes : 044 073 036 degrees QTc Int : 458 ms Sinus rhythm with Premature atrial complexes Otherwise normal ECG When compared with ECG of 02-APR-2023 05:53, No significant change was found Confirmed by WANDA DELANEY, OG ([id number]), supervising film or videotape editor JASEN NGO ([id number]) on 04/05/2023 2:28:23 PM Referred By: Confirmed By:OG MUÑOZ MD
[2023-04-05 06:21] LABS: Differential Indicated SCAN CRITERIA MET
[2023-04-05 06:26] LABS: Anisocytosis 2+
[2023-04-05 06:27] LABS: Polychromasia 1+
[2023-04-05] MEDS: Ipratropium/Albuterol Sulfate 3 ML AMPUL.NEB INHALATION (09:24)
--- NOTE | 2023-04-05 10:40 | OP.COLON_ITS ---
Patient Name: Henny Damian Procedure Date: 04/05/2023 10:01 AM Date of : 1955 Age: 67 Procedure: Colonoscopy Indications: Hematochezia Providers: Marcell Hill DO Medicines: Monitored Anesthesia Care Patient Profile: This is a 67 year old female. Refer to note in patient chart for documentation of history and physical. Last Colonoscopy: 1 week ago. Complications: No immediate complications. Procedure: Pre-Anesthesia Assessment: - Prior to the procedure, a History and Physical was performed, and patient medications and allergies were reviewed. The patient is competent. The risks and benefits of the procedure and the sedation options and risks were discussed with the patient. All questions were answered and informed consent was obtained. Patient identification and proposed procedure were verified by the physician. Mental Status Examination: normal. Prophylactic Antibiotics: The patient does not require prophylactic antibiotics. Prior Anticoagulants: The patient has taken no previous anticoagulant or antiplatelet agents. ASA Grade Assessment: II - A patient with mild systemic disease. After reviewing the risks and benefits, the patient was deemed in satisfactory condition to undergo the procedure. The anesthesia plan was to use monitored anesthesia care (MAC). Immediately prior to administration of medications, the patient was re-assessed for adequacy to receive sedatives. The heart rate, respiratory rate, oxygen saturations, blood pressure, adequacy of pulmonary ventilation, and response to care were monitored throughout the procedure. The physical status of the patient was re-assessed after the procedure. After I obtained informed consent, the scope was passed under direct vision. Throughout the procedure, the patient's blood pressure, pulse, and oxygen saturations were monitored continuously. The pediatric colonoscope was introduced through the anus and advanced to the terminal ileum. The colonoscopy was performed without difficulty. The patient tolerated the procedure well. The quality of the bowel preparation was good. Scope In: 10:12:18 AM Scope Withdrawal Time 0 hours 9 minutes 9 seconds Scope Out: 10:29:33 AM Total Procedure Duration Time 0 hours 17 minutes 15 seconds Findings: The perianal and digital rectal examinations were normal. Non-bleeding internal hemorrhoids were found during retroflexion. The hemorrhoids were mild and Grade II (internal hemorrhoids that prolapse but reduce spontaneously). A few four mm ulcers were found in the recto-sigmoid colon, in the sigmoid colon and in the ascending colon. Oozing was present. Stigmata of recent bleeding were present. Coagulation for hemostasis using heater probe was successful. Estimated blood loss was minimal. For location marking, one hemostatic clip was successfully placed. There was no bleeding at the end of the procedure. The terminal ileum appeared normal. Impression: - Non-bleeding internal hemorrhoids. - A few ulcers in the recto-sigmoid colon, in the sigmoid colon and in the ascending colon. Treated with a heater probe. Clip was placed. - The examined portion of the ileum was normal. - No specimens collected. Recommendation: - Discharge patient to home. - Resume regular diet. - Continue present medications. - Await pathology results. - Repeat colonoscopy in 3 years for surveillance based on pathology results. Procedure Code(s): --- Professional --- 91267, Colonoscopy, flexible; with control of bleeding, any method 02298, Unlisted procedure, colon CPT copyright 2017 [employer]. All rights reserved. The codes documented in this report are preliminary and upon bread stacker review may be revised to meet current compliance requirements. Marcell Hill DO 04/05/2023 10:39:47 AM This report has been signed electronically. Number of Addenda: 0 Note Initiated On: 04/05/2023 10:01 AM
--- NOTE | 2023-04-05 10:40 | OP.CCLET_ITS ---
04/05/2023 To[address] R[address] [place] [address] Re : Colonoscopy procedure for Henny Damian Dear Dr. Rai This procedure was performed on Wednesday, April 05, 2023. My impressions and recommendations are as follows: Impressions : - Non-bleeding internal hemorrhoids. - A few ulcers in the recto-sigmoid colon, in the sigmoid colon and in the ascending colon. Treated with a heater probe. Clip was placed. - The examined portion of the ileum was normal. - No specimens collected. Recommendations : - Discharge patient to home. - Resume regular diet. - Continue present medications. - Await pathology results. - Repeat colonoscopy in 3 years for surveillance based on pathology results. My findings are described in the full procedure note, which is enclosed. If I can be of further assistance, please feel free to contact me at . Sincerely, Marcell Friend, 04/05/2023 10:39:47 AM This report has been signed electronically.
--- NOTE | 2023-04-05 11:10 | NURSING ---
Patient returned from colonoscopy
--- NOTE | 2023-04-05 14:21 | PHA.DC.MR ---
Pharmacy Service has performed discharge medication reconciliation for this patient. The patient's discharge medication list was reviewed for discrepancies and discrepancies were resolved. Home Medications trazodone 100 mg tablet 150 mg PO QHS sleep 12/13/18 pantoprazole 40 mg tablet,delayed release 40 mg PO DAILY reflux 09/22/19 sertraline 50 mg tablet 50 mg PO DAILY depression 09/22/19 hydrocodone-acetaminophen 5-325mg 5mg-325mg 0.5 tab PO BID pain 11/24/19 tizanidine 4 mg capsule 4 mg PO Q8 PRN muscle spasms 11/24/19 aspirin 81 mg tablet,delayed release 81 mg PO DAILY@0800 05/15/20 cholecalciferol (vitamin D3) 125 mcg (5,000 unit) capsule 125 mcg PO DAILY 07/19/20 pravastatin 20 mg tablet 20 mg PO QHS cholesterol #30 tabs 07/02/21 biotin 500 mcg capsule 500 mg PO DAILY supplement 02/24/22 apixaban 5 mg tablet (Eliquis) 5 mg PO BID #180 tabs 02/25/22 metoprolol succinate 50 mg tablet,extended release 24 hr See Rx Instructions .Route .COMPLEX #90 TABLETS 06/05/22 ferrous sulfate 325 mg (65 mg iron) tablet 325 mg PO DAILY anemia 04/04/23 gabapentin 100 mg capsule 100 mg PO BID sciatica 04/04/23
--- NOTE | 2023-04-05 15:03 | CASEMGMT ---
MUNA FAROOQ updated that patient will be discharging today and requires home oxygen at 4lpm with ambulation. MUNA FAROOQ in to discuss DME agencies with patient and prefers [facility]. MUNA FAROOQ received script and sent to [facility] via [facility]. MUNA FAROOQ updated discharge plan with oxygen information. Patient denied further needs and had no further questions or concerns at this time.
--- NOTE | 2023-04-05 16:25 | NURSING ---
Patient discharged per orders. Verbalizes understanding. Friend is taking patient to daughter's house. O2 canister and stand sent with patient along with phone number to contact after hours.
== END 2023-04-05 16:06 | disposition home or self-care (01) | DRG 378 ==
LOC: ED 18:11 → PCU 20:06
PROVIDERS: Anesthesiology; Internal Medicine Gastroenterology; Admitting Provider Hospitalist; Emergency Provider Emergency Medicine; PCP Internal Medicine; Visit Provider Family Medicine
PROC: 0DJ08ZZ Inspection of Upper Intestinal Tract, Via Natural or Artificial Opening Endoscopic (ICD-10-PCS; CPT 43235; principal; 2023-04-01 06:25)
PROC: 0DJD8ZZ Inspection of Lower Intestinal Tract, Via Natural or Artificial Opening Endoscopic (ICD-10-PCS; CPT 45378; principal; 2023-04-02 17:10)
DX: K55.21 Angiodysplasia of colon with hemorrhage (principal); D62 Acute posthemorrhagic anemia; D50.9 Iron deficiency anemia, unspecified; E78.2 Mixed hyperlipidemia; F12.90 Cannabis use, unspecified, uncomplicated; F32.A Depression, unspecified; I48.0 Paroxysmal atrial fibrillation; J44.9 Chronic obstructive pulmonary disease, unspecified; I10 Essential (primary) hypertension; I25.10 Atherosclerotic heart disease of native coronary artery without angina pectoris; K29.50 Unspecified chronic gastritis without bleeding; K21.9 Gastro-esophageal reflux disease without esophagitis; K64.0 First degree hemorrhoids; K63.5 Polyp of colon; F41.9 Anxiety disorder, unspecified; K57.30 Diverticulosis of large intestine without perforation or abscess without bleeding; K64.1 Second degree hemorrhoids; K26.4 Chronic or unspecified duodenal ulcer with hemorrhage; Z95.5 Presence of coronary angioplasty implant and graft; R09.02 Hypoxemia; Z87.891 Personal history of nicotine dependence
CPT/HCPCS: 36415; 71045; 71046; 74174; 80048; 82274; 83880; 85014; 85018; 85025; 85027; 85610; 85730; 86850; 86900; 86901; 86920; 86922; 88305; 88313; 93005; 94640; 97802; 99284; J7030; J7040; J7120; P9016; Q9967; A4216; J2405; J3490

== ENCOUNTER → 2023-03-31 | Outpatient (CLI) | payer MEDICARE, SELFPAY ==
--- NOTE | 2023-03-31 15:42 | RAD_ITS ---
INDICATION: Shortness of breath EXAMINATION/TECHNIQUE: X-RAY - XR Chest 2 Views COMPARISON: 12/24/2021 FINDINGS: LINES/DEVICES: None. LUNGS: No consolidation. Soft tissue fullness and bilateral hilar regions likely prominent central pulmonary arteries. No pneumothorax. MEDIASTINUM: Aorta is atherosclerotic. CARDIAC SILHOUETTE: Not enlarged. BONES AND SOFT TISSUES: Degenerative changes in the dorsal spine. RAD/Chest PA and Lateral IMPRESSION: No evidence of active intrathoracic disease. Likely enlarged central pulmonary vessels, similar to prior. This can suggest pulmonary arterial hypertension. Follow-up CT chest may be helpful if symptoms persist. Electronically Signed: Jo Ann Saldana MD at 23:17 EDT ,
[2023-03-31 16:31] LABS: Mean Corp Hgb Conc 24.2 g/dL (32-36); Mean Corpuscular Hgb 18.4 pg (27.0-32.0); Mean Corpuscular Volume 76.2 fL (81-99); Mean Platelet Vol. 9.7 fl (6.2-12.0); POSITIVE COUNT YES; Platelet Count 212 K/mm3 (150-450); RBC Distribution Width CV 18.6 % (11.6-14.6); RBC Distribution Width SD 50.4 fl (35.1-43.9); Red Blood Count 3.15 M/mm3 (4.2-5.4); White Blood Count 4.6 K/mm3 (4.4-11.0)
[2023-03-31 16:40] LABS: Hemoglobin 5.8 g/dL (12.0-15.0)
[2023-03-31 18:00] LABS: BNP,B-Type NATRIURETIC PEPTIDE 157.1 pg/mL (0-100)
[2023-03-31 18:14] LABS: Anion Gap 5 (5-15); BUN 9 mg/dL (7-18); BUN/Creat Ratio 10.8 RATIO (10-20); Chloride 105 mmol/L (98-107); Creatinine, Serum 0.83 mg/dL (0.55-1.02); EST Glomerular Filtration Rate 73 mL/min (>60); Est Glom Filt Rate - Afr Amer 88 mL/min (>60); Glucose 97 mg/dL (74-106); Potassium 3.6 mmol/L (3.5-5.1); Sodium Level 141 mmol/L (136-145)
[2023-04-01 13:44] LABS: Pathologist Review Reviewed
== END | disposition home or self-care (01) ==
LOC: RAD 15:37
PROVIDERS: PCP Internal Medicine; Referring Provider Nurse Practitioner Gerontology; Visit Provider Nurse Practitioner Gerontology
DX: R06.02 Shortness of breath (principal); Z95.5 Presence of coronary angioplasty implant and graft; I25.10 Atherosclerotic heart disease of native coronary artery without angina pectoris
CPT/HCPCS: 36415; 71046; 80048; 83880; 85027

== ENCOUNTER → 2023-07-19 | Outpatient (CLI) | payer MEDICARE, MEDICAID, SELFPAY ==
--- NOTE | 2023-07-19 17:00 | RAD_ITS ---
EXAM: XR THORACIC SPINE, 3 VIEWS CLINICAL INDICATION: M51.34 TECHNIQUE: Frontal, lateral and swimmer''s views of the thoracic spine. COMPARISON: 04/06/2017. FINDINGS: VERTEBRAE: Multilevel endplate osteophytosis and facet arthrosis. No acute fracture. Maintained thoracic kyphosis. No spondylolysis. DISC SPACES: Multilevel intervertebral disc height loss. Although incompletely evaluated, there are degenerative changes in the cervical spine. VASCULATURE: Atherosclerosis. RAD/Thoracic Spine 3 Views IMPRESSION: Degenerative changes. No acute osseous abnormality. Electronically Signed: Arnav Waters DO at 20:55 EDT ,
== END | disposition home or self-care (01) ==
LOC: RAD 16:52
PROVIDERS: PCP Internal Medicine; Referring Provider Anesthesiology Pain Medicine; Visit Provider Anesthesiology Pain Medicine
DX: M51.34 Other intervertebral disc degeneration, thoracic region (principal)
CPT/HCPCS: 72072

== ENCOUNTER → 2023-10-06 | Outpatient (CLI) | payer MEDICARE, MEDICAID, SELFPAY ==
[2023-10-06 16:53] LABS: Amphetamine Urine VISTA NEGATIVE (<1000 ng/mL); Barbiturate Urine VISTA NEGATIVE (< 200 ng/mL); Benzodiazepine Urine VISTA NEGATIVE (< 200 ng/mL); Cocaine Urine VISTA NEGATIVE (< 300 ng/mL); Ecstacy Urine VISTA NEGATIVE (< 500 ng/mL); Methadone Urine VISTA NEGATIVE (< 300 ng/mL); PCP Urine VISTA NEGATIVE (< 25 ng/mL); THC Urine VISTA NEGATIVE (< 50 ng/mL); Vista UDS pH Range 6
== END | disposition home or self-care (01) ==
LOC: LAB 16:07
PROVIDERS: PCP Internal Medicine; Referring Provider Anesthesiology Pain Medicine; Visit Provider Anesthesiology Pain Medicine
DX: F11.20 Opioid dependence, uncomplicated (principal)
CPT/HCPCS: 80307

== ENCOUNTER → 2024-07-26 | Outpatient (CLI) | payer MEDICARE, MEDICAID, SELFPAY ==
--- NOTE | 2024-07-26 17:00 | RAD_ITS ---
EXAM: XR LUMBOSACRAL SPINE, 2 OR 3 VIEWS CLINICAL INDICATION: M54.16 LUMBAR RADICULOPATHY TECHNIQUE: Frontal and lateral views of the lumbar spine and sacrum. COMPARISON: September 05, 2019. FINDINGS: VERTEBRAE: The usual lordotic curvature remains mildly straightened similar to prior exam. Mild increased endplate sclerosis at L3-4. Similar mild spondylosis. Mild dextro scoliosis centered at L3 appears similar. Preserved vertebral body height. No fracture. No significant facet arthropathy. DISC SPACES: There is persistent marked disc space narrowing at L2-S1, increased at L3-4 compared to prior exam. VASCULATURE: Similar aortoiliac atherosclerotic calcification. GASTROINTESTINAL TRACT: Unremarkable as visualized. Included bowel gas pattern is non-obstructive. RAD/Lumbar Spine 2 or 3 Views IMPRESSION: Moderate multilevel degenerative changes, including increased L3-4 disc space narrowing and endplate sclerosis compared to 2019. Otherwise similar multilevel degenerative findings. Electronically Signed: Jada Marmolejo MD at 19:03 EDT ,
== END | disposition home or self-care (01) ==
LOC: RAD 16:42
PROVIDERS: PCP Internal Medicine; Referring Provider Anesthesiology Pain Medicine; Visit Provider Anesthesiology Pain Medicine
DX: M54.16 Radiculopathy, lumbar region (principal)
CPT/HCPCS: 72100

== ENCOUNTER 2024-09-15 15:00 | Outpatient (RCR) | payer MEDICARE, MEDICAID, SELFPAY ==
--- NOTE | 2024-08-10 15:00 | HP.PTEVAL_ITS ---
Patient's Visit Information Visit Information Visit Information: JOVI HILL is a 68 year old F referred to Physical Therapy by Dr. Simone Arreola MD with a diagnosis of LBP with B LE radiculopathy. 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 Pt notes the pain radiates to her ankle region. 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 Pt notes since she has retired, the pain has become less. Pt reports she gets injections into her LB which usually takes her pain away for 3 months. Pt reports she was due for an injection this month, but the pain is less so she chose to skip the injection and try therapy at this time. Pt reports increased pain with sweeping her floors and cleaning her house. Pt r eports prolonged standing and walking, such as when she goes grocery shopping, increases her pain. sitting and resting helps her pain to lessen. Pt reports she had recent xrays which revealed degenerative changes. Pt reports no sleep difficulty as long as she takes pain med and a sleeping pill. 4/10 pain while sitting here at rest, 10/10 at worst Pain LBP: Pain Intensity (Out of 10): 4 Pain Intensity Range: 10 Objective Objective: Neuro: B LE sensation is WNL to light touch MMT: B LE's are grossly 5/5 throughout ROM: Pt is moderately limited with L/S extension. all other ROM is WNL. Repeated movements: BARBARA 10x2 increase pain. SKTC/DKTC 10 sec x 3 ea NE TU seconds Balance/Special Test Scores Oswestry Low Back Score: 14 Goals Goal 1:: Decrease LBP x 50% to aide with sleep Goal Time Frame: 4-6 Weeks Goal 2:: Decrease the frequency and intensity of B LE radiculopathy x 50% to aid with ambulation Goal Time Frame: 4-6 Weeks Goal 3:: I with HEP Goal Time Frame: 4-6 Weeks Rehabilitation Potential Physical Therapy Diagnosis: Pt has LBP, B LE radiculopathy, and limited L/S ROM secondary to degenerative changes in L/S Rehabilitation Potential: Good Anticipated Interventions Patient/Client Instruction: Educate patient on: Condition and Plan of Care For the Purpose of:: To improve self management Therapeutic Exercise to Include: Strength training, Postural training and Dynamic Lumbar Stabilization For the Purpose of:: To decrease pain, To increase ROM and To improve muscle performance and motor function Text: Thank you for the opportunity to evaluate your patient. For Medicare and Medicare HMO plans, please review the plan of care and approve it. It will need to be FAXED BACK to us at [phone] for Medicare purposes. For Medicare only, by signing this I certify the plan of care. Please let me know if there are questions or concerns regarding this plan of care. Physician Signature: ____Date:
--- NOTE | 2024-09-15 15:50 | HP.PTDCSUM ---
Discharge Summary D/C summary: It has been my pleasure to treat JOVI HILL referred by Dr. Simone Arreola MD, with the diagnosis of LBP with B LE radiculopathy for a total of 6 visit(s). Discharge Date: Please see the following information for a summary of their discharge status. Subjective Subjective: Pt reports she is ready for discharge at this time Pain LBP: Pain Intensity (Out of 10): 3 Overall Improvement % Improvement: 65 Objective Objective/Function: LBP 3/10 currently, 7/10 at worst B LE radiculopathy is grossly 50% improved per patient Pt is I with HEP Rx goals achieved Goals Goal 1:: Decrease LBP x 50% to aide with sleep Goal Progress: Goal Met Goal 2:: Decrease the frequency and intensity of B LE radiculopathy x 50% to aid with ambulation Goal Progress: Goal Met Goal 3:: I with HEP Goal Progress: Goal Met Plan Plan: Discharged to HEP D/C Information d/c sentence: If there are questions or concerns regarding this patient's physical therapy, please feel free to call me at [phone]. Thank you for the referral of this patient. Sincerely, Cong Cano, PT, ATC Balance/Gait/Functional tests Balance/Special Test Scores Oswestry Low Back Score: 15 Improvement % Improvement: 65
== END 2024-09-15 19:00 | disposition home or self-care (01) ==
LOC: PT 15:00
PROVIDERS: PCP Internal Medicine; Referring Provider Anesthesiology Pain Medicine; Visit Provider Anesthesiology Pain Medicine
DX: M54.9 Dorsalgia, unspecified (principal)
CPT/HCPCS: 97110; 97161; 97530

== ENCOUNTER → 2024-10-23 | Outpatient (CLI) | payer MEDICARE, MEDICAID, SELFPAY ==
--- NOTE | 2024-10-23 13:15 | MRI_ITS ---
EXAM: MR LUMBAR SPINE WITHOUT INTRAVENOUS CONTRAST CLINICAL INDICATION: RADICULOPATHY, C/O LOWER BACK PAIN RADIATING INTO LEGS BILATERALLY TECHNIQUE: Multiplanar and multisequence MR images of the lumbar spine without intravenous contrast. COMPARISON: No relevant prior studies available. FINDINGS: VERTEBRAE: Normal alignment of the lumbar vertebral bodies. Normal vertebral body height. No bone marrow edema. SPINAL CORD: Normal. Normal position and signal intensity of the conus medullaris. SOFT TISSUES: Normal. DISCS/SPINAL CANAL/NEURAL FORAMINA: L1-L2: Normal disc height and morphology. Normal spinal canal and lateral recesses. Normal neuroforamina. L2-L3: L2-3: Moderate disc space narrowing. Mild disc bulging causes mild spinal stenosis. No significant narrowing of the neural foramina. L3-L4: L3-4: Moderate disc space narrowing. Broad-based disc protrusion, ligamentous hypertrophy and facet arthropathy results in mild to moderate spinal stenosis and mild right and moderate left foraminal narrowing. L4-L5: L4-5: Mild disc space narrowing. There is minimal anterior listhesis of L4 on L5. Mild disc bulging, ligamentous hypertrophy and facet arthropathy cause mild neural foraminal stenosis. No significant spinal stenosis. L5-S1: No significant disc space narrowing. Mild disc protrusion and annular fissure noted. No spinal stenosis. Facet arthropathy and the disc bulging contribute to moderate bilateral neural foraminal narrowing. MRI/Spine Lumbar (Routine) IMPRESSION: 1. Multilevel disc degeneration and facet arthropathy. 2. Mild to moderate spinal stenosis at L3-4. 3. Multilevel neural foraminal narrowing as described above. Electronically Signed: Rom Woodard MD at 17:05 EST ,
== END | disposition home or self-care (01) ==
LOC: MRI 12:56
PROVIDERS: PCP Internal Medicine; Referring Provider Anesthesiology Pain Medicine; Visit Provider Anesthesiology Pain Medicine
DX: M54.16 Radiculopathy, lumbar region (principal)

== ENCOUNTER → 2024-12-06 | Outpatient (CLI) | payer MEDICARE, SELFPAY ==
[2024-12-06 20:48] LABS: Amphetamine Urine NEGATIVE (<1000 ng/mL); Barbiturate Urine NEGATIVE (< 200 ng/mL); Benzodiazepine Urine NEGATIVE (< 200 ng/mL); Buprenorphine Urine NEGATIVE (< 200 ng/mL); Cocaine Urine NEGATIVE (< 300 ng/mL); Fentanyl, Urine NEGATIVE; Methadone Urine NEGATIVE (< 300 ng/mL); Opiates Urine PRESUMPTIVE POSITIVE (< 300 ng/mL); Oxycodone, Urine NEGATIVE (< 100 ng/mL); PCP Urine NEGATIVE (< 25 ng/mL); THC Urine PREUMTIVE POSITIVE (< 50 ng/mL)
== END | disposition home or self-care (01) ==
LOC: LAB 16:45
PROVIDERS: PCP Internal Medicine; Referring Provider Anesthesiology Pain Medicine; Visit Provider Anesthesiology Pain Medicine
DX: F11.20 Opioid dependence, uncomplicated (principal)
CPT/HCPCS: 80307

== ENCOUNTER → 2025-09-28 | Outpatient (CLI) | payer MEDICARE, SELFPAY ==
[2025-09-28 12:08] LABS: Hematocrit 47.4 % (37-47); Hemoglobin 15.6 g/dL (12.0-15.0); Immature Granulocytes Count 0.010 X10^3/uL (0.0-0.0); Mean Corp Hgb Conc 32.9 g/dL (32-36); Mean Corpuscular Volume 94.8 fL (81-99); Mean Platelet Vol. 8.6 fl (6.2-12.0); NRBC Flagged by Analyzer 0 % (0-5); Platelet Count 209 K/mm3 (150-450); RBC Distribution Width CV 12.6 % (11.6-14.6); RBC Distribution Width SD 43.6 fl (35.1-43.9); Red Blood Count 5.00 M/mm3 (4.2-5.4); White Blood Count 4.6 K/mm3 (4.4-11.0)
--- OUTSIDE RECORDS SUMMARY | 2025-09-28 12:32 | XMS RPT_ITS | CCD ---
Author Organization [facility] [place] Care Team Providers Care Sea Kayaking Guide Name Role Phone Niya Rogers Unavailable Shaniqua Baugh Unavailable Niya Rogers Unavailable Dr. Brook Horner Primary Care Provider Dr. Brook Horner Referring Provider Laura Grier Attending Provider Unavailable Dr. Surinder Mar Attending Provider Dr. Surinder Mar Referring Provider Dr. Surinder Mar Other Provider Sandro FRESH FOODS CLERK, CHANDA Sweet Attending Provider Brook Horner MD Primary Care Provider Brook Horner MD Primary Care Provider Brook Horner MD Primary Care Provider OLDER, KATE Referring Unavailable BROOK HORNER Primary Care Unavailable Dr. Brook Horner Primary Care Provider Dr. Kina South Emergency Provider Dr. Cesar Rodriguez Admit Provider Dr. Cesar Rodriguez Other Provider Dr. Marcell Hill Attending Provider Dr. Marcell Hill Other Provider Dr. Gustavo Fuentes Referring Provider Dr. Kenia Ramos Attending Provider Dr. Cesar Rodriguez Referring Provider Dr. Gustavo Fuentes Attending Provider Dr. Gustavo Fuentes Other Provider Dr. Kenia Ramos Referring Provider Dr. Moi Mcneill Attending Provider Dr. Moi Mcneill Referring Provider Dr. Brook Horner Referring Provider Sandro FRESH FOODS CLERK, FRESH FOODS CLERK-C Micki Attending Provider Brook Horner MD Primary Care Provider Katey Dudley PA-C Unavailable Older FINAL INSTALLER INSPECTOR.PUBLIC SERVICE ADMINISTRATOR, Kate Unavailable Yari Bailey PA-C Unavailable Dr. Brook Horner MD Primary Care Provider Maxwell DELANEY, Dr. Nichols Attending Provider Dr. Simone Arreola MD Referring Provider Simone Arreola Attending Unavailable Basali, Simone Referring Unavailable Ganta, Brook Primary Care Unavailable Cesar Justice Attending Unavailable Ganta, Brook Primary Care Unavailable Ganta, Brook Referring Unavailable Moi Mcneill Attending Unavailable Ganta, Brook Primary Care Unavailable Basali, Simone Referring Unavailable Basali, Simone Attending Unavailable Ganta, Brook Primary Care Unavailable Basali, Simone Attending Unavailable Basali, Ayman Referring Unavailable Ganta, Brook Primary Care Unavailable Basali, Ayman Referring Unavailable Ganta, Brook Primary Care Unavailable Basali, Simone Attending Unavailable HARPSTER, WOJCIECH Referring Unavailable GANTA, BROOK Primary Care Unavailable KELLEY BARRERA Referring Unavailable GANTA, BROOK Primary Care Unavailable OLDER, KATE Attending Unavailable GANTA, BROOK Primary Care Unavailable LIA GARIBAY Referring Unavailable GANTA, BROOK Primary Care Unavailable OLDER, KATE Referring Unavailable GANTA, BROOK Primary Care Unavailable OLDER, KATE Referring Unavailable GANTA, BROOK Primary Care Unavailable OLDER, KATE Attending Unavailable GANTA, BROOK Primary Care Unavailable OLDER, KATE Referring Unavailable GANTA, BROOK Primary Care Unavailable LIA GARIBAY Attending Unavailable OLDER, KATE Referring Unavailable GANTA, BROOK Primary Care Unavailable LIA GARIBAY Referring Unavailable GANTA, BROOK Primary Care Unavailable GANTA, BROOK Referring Unavailable GANTA, BROOK Primary Care Unavailable GANTA, BROOK Attending Unavailable GANTA, BROOK Primary Care Unavailable TALIA HART Referring Unavailable GANTA, BROOK Primary Care Unavailable KELLEY BARRERA Attending Unavailable TALIA HART Referring Unavailable GANTA, BROOK Primary Care Unavailable WOJCIECH CARRERO Attending Unavailable OLDER, KATE Referring Unavailable GANTA, BROOK Primary Care Unavailable Allergies Allergy Classification Reported Allergen(s) Allergy Type Date of Onset Reaction(s) Facility (8 sources) Doxycycline Drug Allergy 2 Unknown [facility] (20 sources) Doxycycline; Translations: [DOXYCYCLINE HCL] Drug Allergy 5 Other: See Comments [facility] (1 source) Doxycycline Drug Allergy 5 [facility] Repository Medications Current Medications Medication Drug Class(es) Dates Sig (Normalized) Sig (Original) acetaminophen 325 mg / HYDROcodone bitartrate 5 mg oral tablet (20 sources) Opioid Agonist Start: 11-24-2019 End: 08-30-2023 take 1 tablet by mouth twice daily HYDROcodone-acetam inophen (NORCO) 5-325 mg per tablet Indications: Spondylolisthesis, unspecified spinal region Take 1 tablet by mouth two times a day. 08/30/2023 Active Start: 11-24-2019 take 0.5 tablet by m outh twice daily Hydrocodone-Acetaminophen Active 0.5 TAB LET PO TWICE A DAY November 24, 2019 12:00am Comment on above: Take 1 tablet by sravanthi th twice daily. Take 0.5 tablets by mouth twice daily. Take 1 tablet by sravanthi th two times a day. [id number] 200 actuat albuterol 0.09 mg/actuat metered dose inhaler (5 sources) beta2-Adrenergic Agonist Start: 5 take 2 puff(s) by inhalation every four hours as needed for wheezing albuterol HFA (PROVENTIL HFA, VENTOLIN HFA) 90 mcg/actuation inhaler Indications: Chronic obstructive pulmonary disease, unspecified COPD type (HCC) Inhale 2 puffs as instructed every 4 hours as needed for wheezing/shortness of breath. 1 each 2 05/17/2025 Active apixaban 5 mg oral tablet (20 sources) Factor Xa Inhibitor Start: 2 End: 4 take 1 tablet by mouth twice daily Apixaban (Eliquis) 5 mg tablet Active 5 mg PO TWICE A DAY 180 August 02, 2024 3:13pm Start: 09-22-2019 End: 05-15-2020 take 1 tablet by mouth twice daily Apixaban (Eliquis) 5 mg tablet Discontinued 5 mg PO TWICE A DAY 60 November 24, 2019 12:21pm May 15, 2020 8:53am Comment on above: Take 5 mg by mouth t wice daily. ascorbic acid 500 mg oral tablet (20 sources) Vitamin C Start: 3 take 1 tablet by mouth once daily ascorbic acid, vitamin C, (VITAMIN C) 500 mg tablet Indications: Anemia, unspecified type Take 1 tablet by mouth once daily. 05/25/2023 Active Comment on above: Take 1 tablet by sravanthi once daily. aspirin 81 mg delayed release oral tablet (20 sources) Platelet Aggregation Inhibitor, Nonsteroidal Anti-inflammatory Drug Start: 0 End: 4 take 1 tablet by mouth once daily Aspirin 81 MG tablet Active 81 mg PO DAILY@0800 May 15, 2020 12:00am Comment on above: Take 81 mg by mouth once daily. Biotin (20 sources) Start: 2 take 1 capsule by mouth once daily Biotin 500 mcg capsule Active 500 mg PO DAILY February 24, 2022 3:12pm Start: 02-24-2022 take 500 mg by mouth once jorge y Biotin Active 500 MG PO DAILY February 24, 2022 2:12pm Start: 02-24-2022 take 500 mg by mouth once jorge y Biotin Active 500 MG PO DAILY February 24, 2022 3:12pm Start: 02-24-2022 take 500 ug by mouth once jorge y Biotin Active 500 MCG PO DAILY February 24, 2022 3:12pm Start: 12-24-2021 End: 02-24-2022 take 1 mg by mouth once daily Biotin 500 mcg Capsule Discontinued 1 mg PO DAILY December 24, 2021 12:00am February 24, 2022 3:12pm Start: 11-24-2019 End: 01-24-2021 take 1 capsule by mouth once daily Biotin 1 mg capsule Discontinued 1 mg PO DAILY November 24, 2019 1:00am January 24, 2021 2:21pm Start: 10-20-2019 take 1 tablet by sravanthi th once daily BIOTIN ORAL Take 1 tablet by mouth once daily. 500 mg 10/20/2019 Active Start: 10-20-2019 End: 02-24-2022 take 1 mg by mouth once daily Biotin Discontinued 1 MG PO DAILY December 23, 2021 11:00pm February 24, 2022 2:12pm Start: 10-20-2019 take 1 tablet by sravanthi th once daily BIOTIN ORAL Take 1 tablet by mouth once daily. 500 mg 0 10/20/2019 Active Comment on above: Take 1 tablet by sravanthi th once daily. Take 1 tablet by sravanthi th once daily. 500 mg 120 actuat budesonide 0.16 mg/actuat / formoterol fumarate 0.0048 mg/actuat / glycopyrrolate 0.009 mg/actuat metered dose inhaler (1 source) Corticosteroid, beta2-Adrenergi c Agonist Start: 06-14-20 25 take 2 puff(s) by inhalation twice daily [id number] rmoterol (BREZTRI AEROSPHERE) 160-9-4.8 mcg/actuation HFA aerosol inhaler Inhale 2 puffs as instructed two times a day. 1 each 06/14/2025 Active cholecalciferol 0.125 mg oral tablet (20 sources) Vitamin D Start: 09-27-20 24 take 1 tablet by mouth once daily cholecalciferol (VITAMIN D3) 5,000 unit tab Indications: vitamin D deficiency Take 1 tablet by mouth once daily. 30 tablet 2 09/27/2024 Active Start: 08-29-2020 take 1 tablet by sravanthi th once daily cholecalciferol (VITAMIN D3) 5,000 unit tab Indications: vitamin D deficiency Take 1 tablet by mouth once daily. 30 tablet 2 08/29/2020 Active Start: 07-19-2020 take 1 capsule by mo uth once daily Cholecalciferol (Vitamin D3) 125 mcg (5,000 unit) capsule Active 125 ug PO DAILY July 19, 2020 12:00am Comment on above: Take 1 tablet by sravanthi th once daily. folic acid/multivit-min/lutein (CENTRUM SILVER ORAL) (20 sources) folic acid/multivit-min/lutein (CENTRUM SILVER ORAL) Take by mouth once daily. Active folic acid/multi vit-min/lutein (CENTRUM SILVER ORAL) Take by mouth. Active folic acid/multi vit-min/lutein (CENTRUM SILVER ORAL) Take by mouth. 0 Active Comment on above: Take by mouth. gabapentin 100 mg oral capsule (20 sources) Anti-epileptic Agent Start: 04-04-2023 take 1 capsule by mouth twice daily Gabapentin 100 mg Capsule Active 100 mg PO TWICE A DAY April 04, 2023 12:00am take 1 capsule by mo [facility] three times daily gabapentin (NEURONTIN) 100 mg capsule Ta ke 100 mg by mouth three times daily. 0 Active Comment on above: Take 100 mg by mouth three times daily. Take 100 mg by mouth twice daily. 24 hr metoprolol succinate 50 mg extended release oral tablet (20 sources) beta-Adrenergic Fred Start: 06-05-2022 End: 05-25-2023 take 1 tablet by mouth once daily Metoprolol Succinate 50 mg tablet extended release 24 hr Discontinued 0 .ROUTE .COMPLEX June 05, 2022 2:22pm May 25, 2023 10:21pm take 1 tablet by mouth once daily Start: 06-05-2022 End: 05-25-2023 take 1 tablet by mouth once daily Metoprolol Succinate Discontinued 0 .ROUTE .COMPLEX June 05, 2022 1:22pm May 25, 2023 9:21pm take 1 tablet by mouth once daily Start: 06-05-2022 End: 05-25-2023 take 1 tablet by mouth once daily Metoprolol Succinate Discontinued 0 .ROUTE .COMPLEX June 05, 2022 2:22pm May 25, 2023 10:21pm take 1 tablet by mouth once daily Start: 06-05-2022 take 1 tablet by sravanthi once daily Metoprolol Succinate Active 0 .ROUTE .COMPLEX June 05, 2022 2:22pm take 1 tablet by mouth once daily Start: 12-13-2019 End: 09-26-2024 take 1 tablet by mouth once daily metoprolol succinate ER (TOPROL XL) 50 mg 24 hr tablet Take 50 mg by mouth once daily. 05/31/2020 Active Comment on above: Take 50 mg by mouth once daily. montelukast 10 mg oral tablet (5 sources) Leukotriene Receptor Antagonist Start: 5 take 1 tablet by mouth once daily at bedtime montelukast (SINGULAIR) 10 mg tablet Indications: Chronic obstructive pulmonary disease, unspecified COPD type (HCC) Take 1 tablet by mouth daily at bedtime. 30 tablet 1 05/17/2025 Active Multivitamin (Daily Multi-Vitamin) tablet (5 sources) Start: 0 take 1 tablet by mouth once daily Multivitamin (Daily Multi-Vitamin) tablet Active 1 TABLET PO DAILY May 03, 2020 10:40am Start: 05-03-2020 take 1 tablet by sravanthi th once daily Multivitamin (Daily Multi-Vitamin) tablet Active 1 TABLET PO DAILY May 03, 2020 12:00am nystatin [id number] unt/ml topical cream (3 sources) Polyene Antifungal Start: 05-11-2023 End: 05-18-2023 nystatin (MYCOSTATIN) cream Apply to affected area twice daily for 7 days. 30 g 0 05/11/2023 05/18/2023 Active Comment on above: Apply to affected ar ea twice daily for 7 days. pantoprazole 40 mg delayed release oral tablet (20 sources) Proton Pump Inhibitor Start: 09-27-2024 take 1 tablet by mouth twice daily pantoprazole DR (PROTONIX) 40 mg tablet Indications: Gastroesophageal reflux disease without esophagitis Take 1 tablet by mouth two times a day. 180 tablet 3 09/27/2024 Active Start: 12-29-2023 take 1 tablet by sravanthi th twice daily pantoprazole DR (PROTONIX) 40 mg tablet Indications: Gastroesophageal reflux disease without esophagitis Take 1 tablet by mouth two times a day. 180 tablet 3 12/29/2023 Active Start: 09-22-2019 End: 12-29-2023 take 1 tablet by mouth once daily Pantoprazole 40 mg tablet,delayed release (DR/EC) Active 40 mg PO DAILY September 22, 2019 1:00am Comment on above: Take 1 tablet by sravanthi th once daily. take 1 tablet by sravanthi th once daily Take 1 tablet by sravanthi th two times a day. pravastatin sodium 20 mg oral tablet (20 sources) HMG-CoA Reductase Inhibitor Start: take 1 tablet by mouth once daily pravastatin (PRAVACHOL) 20 mg tablet Indications: Mixed hyperlipidemia Take 1 tablet by mouth once daily. 90 tablet 3 09/27/2024 Active Start: 08-12-2020 End: 09-26-2024 take 1 tablet by mouth once daily pravastatin (PRAVACHOL) 20 mg tablet Indications: Mixed hyperlipidemia Take 1 tablet by mouth once daily. 90 tablet 3 09/27/2024 Active Start: 06-07-2020 End: 08-12-2020 take 2 tablets by mouth at bedtime Pravastatin 10 mg tablet Discontinued 20 mg PO AT BEDTIME June 07, 2020 11:30am August 12, 2020 4:49pm Start: 06-07-2020 End: 08-12-2020 take 20 mg by mouth at bedtime Pravastatin Discontinue d 20 MG PO AT BEDTIME June 07, 2020 10:30am August 12, 2020 3:49pm Start: 12-13-2018 End: 06-07-2020 take 1 tablet by mouth at bedtime Pravastatin 10 MG tablet Discontinued 10 mg PO AT BEDTIME December 13, 2018 1:00am June 07, 2020 11:30am Start: 03-19-2017 PRAVASTATIN SO DIUM 40 MG TABS PRAVASTATIN SODIUM [id number] Niya Rogers Comment on above: Take 1 tablet by sravanthi th once daily. sertraline 50 mg oral tablet (20 sources) Serotonin Reuptake Inhibitor Start: 09-27-2024 take 1 tablet by mouth once daily sertraline (ZOLOFT) 50 mg tablet Indications: Moderate episode of recurrent major depressive disorder (HCC) , Anxiety Take 1 tablet by mouth once daily. 90 tablet 3 09/27/2024 Active Start: 09-22-2019 End: 08-16-2024 take 1 tablet by mouth once daily sertraline (ZOLOFT) 50 mg tablet Indications: Moderate episode of recurrent major depressive disorder (HCC) , Anxiety Take 1 tablet by mouth once daily. 90 tablet 3 09/27/2024 Active Comment on above: Take 1 tablet by sravanthi th once daily. tiZANidine 4 mg oral capsule (20 sources) Central alpha-2 Adrenergic Agonist Start: 11-24-2019 take 4 mg by mouth twice daily Tizanidine Active 4 MG PO TWICE A DAY November 24, 2019 11:40am Start: 09-22-2019 End: 11-24-2019 tiZANidine HCl (ZANAFLEX) 4 mg capsule EVERY 8 HOURS 11/24/2019 Active Start: 12-13-2018 End: 09-22-2019 take 1 capsule by mouth twice daily Tizanidine 4 MG capsule Discontinued 4 mg PO TWICE A DAY December 13, 2018 1:00am September 22, 2019 2:06pm Start: 08-12-2018 End: 08-23-2024 take 1 tablet by mouth every eight hours as needed for muscle spasms tiZANidine (ZANAFLEX) 4 mg tablet Indications: Tensor fascia fanta syndrome Take 1 tablet by mouth every 8 hours as needed (muscle spasms). 08/12/2018 08/23/2024 Discontinued Comment on above: Take 1 tablet by sravanthi th every 8 hours as needed (muscle spasms). traZODone hydrochloride 150 mg oral tablet (20 sources) Serotonin Reuptake Inhibitor Start: take 1 tablet by mouth once daily at bedtime traZODone (DESYREL) 150 mg tablet Indications: Insomnia, unspecified type Take 1 tablet by mouth daily at bedtime. 90 tablet 3 09/27/2024 Active Start: 10-27-2023 take 1 tablet by sravanthi th once daily at bedtime traZODone (DESYREL) 150 mg tablet Indications: Insomnia, unspecified type Take 1 tablet by mouth daily at bedtime. 30 tablet 11 10/27/2023 Active Start: 08-30-2023 take 1 tablet by sravanthi th once daily at bedtime traZODone (DESYREL) 150 mg tablet Indications: Insomnia, unspecified type Take 1 tablet by mouth daily at bedtime. 30 tablet 11 08/30/2023 Active Start: 07-06-2022 End: 08-30-2023 take 1.5 tablets by mouth once daily at bedtime traZODone (DESYREL) 100 mg tablet Indications: Insomnia, unspecified type Take 1.5 tablets by mouth daily at bedtime. 135 tablet 3 07/23/2023 08/30/2023 Discontinued Start: 12-13-2018 Trazodone 100 MG tablet Active 150 mg PO AT BEDTIME December 13, 2018 1:00am Start: 12-13-2018 take 150 mg by mouth at bedtim e Trazodone Active 150 MG PO AT BEDTIME December 13, 2018 12:00am Start: 12-13-2018 take 100 mg by mouth at bedtim e Trazodone Active 100 MG PO AT BEDTIME December 13, 2018 1:00am Start: 03-19-2017 TRAZODONE HCL 100 MG TABS TRAZODONE HCL [id number] Niya Rogers Comment on above: Take 1 tablet by sravanthi th daily at bedtime. Take 1.5 tablets by mouth daily at bedtime. vitamin b12 1 mg oral tablet (20 sources) Vitamin B12 Start: 05-25-2023 take 1 tablet by mouth once daily cyanocobalamin (VITAMIN B-12) 1,000 mcg tab Indications: Anemia, unspecified type Take 1 tablet by mouth once daily. 05/25/2023 Active Comment on above: Take 1 tablet by sravanthi th once daily. Completed/Discontinued Medications Medication Drug Class(es) Dates Sig (Normalized) Sig (Original) acetaminophen 325 mg oral capsule (8 sources) Start: 07-19-2020 End: 02-24-2022 take 1 capsule by mouth once as needed for pain Acetaminophen (Tylenol) 325 mg capsule Discontinued 325 mg PO ONCE as needed for pain/fever July 19, 2020 12:00am February 24, 2022 3:12pm citalopram 10 mg oral tablet (11 sources) Serotonin Reuptake Inhibitor Start: 12-13-2018 End: 09-22-2019 take 4 tablets by mouth once daily Citalopram 10 MG tablet Discontinued 40 mg PO DAILY December 13, 2018 1:00am September 22, 2019 2:00pm Start: 12-13-2018 End: 09-22-2019 take 40 mg by mouth once daily Citalopram Discontinued 40 MG PO DAILY December 13, 2018 12:00am September 22, 2019 1:00pm Start: 03-19-2017 CELEXA 40 MG T ABS CITALOPRAM HYDROBROMIDE [id number] Niya Rogers clopidogrel 75 mg oral tablet (20 sources) [id number] Platelet Inhibitor Start: 06-07-2020 End: 06-26-2022 take 1 tablet by mouth once daily Clopidogrel (Plavix) 75 mg tablet Discontinued 75 mg PO DAILY August 05, 2021 2:35pm February 25, 2022 4:18pm Start: 05-03-2020 End: 06-07-2020 Clopidogrel (Plavix) 75 mg t ablet Discontinued 75 mg PO DAILY May 03, 2020 12:00am June 07, 2020 12:04pm 4 tablets on Day 1 then 1 tablet a day starting on Day 2 Comment on above: Take 1 tablet by sravanthi once daily. 24 hr dilTIAZem hydrochloride 120 mg extended release oral capsule (20 sources) Calcium Channel Fred Start: 9 End: 2 take 1 capsule by mouth once daily Diltiazem Hcl 120 mg capsule,extended release 24hr Discontinued 120 mg PO DAILY November 24, 2019 12:21pm December 13, 2019 4:27pm Comment on above: Take 1 capsule by mo [facility] once daily. ferrous sulfate 325 mg oral tablet (20 sources) Start: 4 End: 5 take 1 tablet by mouth once daily ferrous sulfate (FEROSUL) 325 mg (65 mg iron) tablet Take 1 tablet by mouth once daily. 90 tablet 3 09/27/2024 02/14/2025 Discontinued Start: 08-02-2023 End: 08-23-2024 take 1 tablet by mouth every other day FEROSUL 325 mg (65 mg iron) tablet Indications: Anemia, unspecified type take 1 tablet by mouth every other day 45 tablet 1 02/03/2024 08/23/2024 Discontinued Start: 04-04-2023 End: 05-11-2023 take 1 tablet by mouth once daily ferrous sulfate (FEROSUL) 325 mg (65 mg iron) tablet Take 1 tablet by mouth once daily. 90 tablet 3 09/27/2024 Active Start: 07-16-2022 End: 08-02-2023 take 1 tablet by mouth once daily at breakfast ferrous sulfate 325 mg (65 mg iron) tablet Indications: Anemia, unspecified type Take 1 tablet by mouth daily with breakfast. 30 tablet 5 07/16/2022 08/02/2023 Discontinued Comment on above: Take 1 tablet by sravanthi daily with breakfast. Take 1 tablet by sravanthi every other day. 24 hr isosorbide mononitrate 30 mg extended release oral tablet (11 sources) Nitrate Vasodilator Start: 0 End: 2 take 1 tablet by mouth once daily, then take 1 tablet by mouth every twenty-four hours Isosorbide Mononitrate 30 mg tablet extended release 24 hr Discontinued 30 mg PO DAILY May 15, 2020 12:00am January 24, 2021 2:21pm On Hold: low BP Comment on above: Take 30 mg by mouth once daily. meloxicam 7.5 mg oral tablet (11 sources) Nonsteroidal Anti-inflammatory Drug Start: 9 End: 0 take 1 tablet by mouth once daily Meloxicam 7.5 mg tablet Discontinued 7.5 mg PO DAILY September 22, 2019 1:00am November 24, 2019 11:42am Start: 03-19-2017 MELOXICAM 15 M G TABS MELOXICAM [id number] Niya Rogers naproxen 500 mg oral tablet (8 sources) Nonsteroidal Anti-inflammatory Drug Start: 12-13-2018 End: 11-24-2019 take 1 tablet by mouth once daily as needed for pain Naproxen 500 MG tablet Discontinued 500 mg PO DAILY NEEDED as needed for Pain December 13, 2018 1:00am November 24, 2019 11:42am Drug Treatment Unknown - unknown (1 source) No information available. raNITIdine 150 mg oral tablet (11 sources) Histamine-2 Receptor Antagonist Start: 12-13-2018 End: 09-22-2019 take 1 tablet by mouth twice daily Ranitidine Hcl 150 MG tablet Discontinued 150 mg PO TWICE A DAY December 13, 2018 1:00am September 22, 2019 1:59pm Start: 03-19-2017 RANITIDINE HCL 150 MG CAPS RANITIDINE HCL [id number] Niya Rogers traMADol hydrochloride 50 mg oral tablet (19 sources) Opioid Agonist Start: 09-22-2019 End: 11-24-2019 take 1 tablet by mouth every four hours as needed for pain Tramadol 50 mg tablet Discontinued 50 mg PO Q4H as needed for pain September 22, 2019 2:06pm November 24, 2019 11:42am Start: 12-13-2018 End: 09-22-2019 take 1 tablet by mouth twice daily Tramadol 50 MG tablet Discontinued 50 mg PO TWICE A DAY December 13, 2018 1:00am September 22, 2019 2:06pm Start: 03-19-2017 TRAMADOL HCL 5 0 MG TABS TRAMADOL HCL [id number] Niya Rogers Problems Active Problems Problem Classification Problem Date Documented Da te Episodic/Chronic Acute posthemorrhagic anemia (4 sources) Acute posthemorrhagic anemia; Translations: [Acute posthemorrhagic anemia] 04-08-2023 Episodic Administrative/social admission (20 sources) Patient encounter status; Translations: [Tobacco abuse counseling] Episodic Anxiety disorders (20 sources) Anxiety; Translations: [Anxiety disorder, unspecified] Onset: 5 10-06-2021 Chronic Cardiac dysrhythmias (20 sources) Atrial fibrillation; Translations: [Unspecified atrial fibrillation] Onset: 3 Chronic Cardiac dysrhythmias (19 sources) Palpitations; Translations: [Palpitations] Episodic Chronic obstructive pulmonary disease and bronchiectasis (12 sources) Chronic obstructive lung disease; Translations: [Chronic obstructive pulmonary disease, unspecified] Onset: 5 06-01-2025 Chronic Coronary atherosclerosis and other heart disease (20 sources) Coronary atherosclerosis; Translations: [Atherosclerotic heart disease of [place] coronary artery without angina pectoris] Onset: 1 Chronic Deficiency and other anemia (12 sources) Anemia; Translations: [Anemia, unspecified] Episodic Deficiency and other anemia (3 sources) Iron deficiency anemia; Translations: [Iron deficiency anemia, unspecified] Episodic Deficiency and other anemia (2 sources) Anemia, unspecified; Translations: [Anemia, unspecified] 03-31-2023 Episodic Disorders of lipid metabolism (20 sources) Mixed hyperlipidemia; Translations: [Mixed hyperlipidemia] Onset: 2 Chronic Esophageal disorders (20 sources) Gastroesophageal reflux disease; Translations: [Gastro-esophageal reflux disease without esophagitis] Onset: 5 Chronic Fluid and electrolyte disorders (1 source) Hypokalemia; Translations: [Hypokalemia] 04-10-2023 Episodic Immunizations and screening for infectious disease (4 sources) Needs influenza immunization; Translations: [Encounter for immunization] Onset: 5 Episodic Mood disorders (20 sources) Recurrent major depressive episodes, moderate ; Translations: [Major depressive disorder, recurrent, moderate] Onset: 2 03-05-2021 Chronic Mycoses (2 sources) Candidiasis of skin; Translations: [Candidiasis of skin and nail] 05-11-2023 Episodic Nonmalignant breast conditions (1 source) Breast finding ; Translations: [Dense breast tissue] 08-23-2024 Episodic Nonspecific chest pain (16 sources) Chest discomfort; Translations: [Other chest pain] 12-24-2021 Episodic Nutritional deficiencies (1 source) Vitamin D deficiency; Translations: [Vitamin D deficiency, unspecified] Chronic Other aftercare (1 source) Long-term current use of anticoagulant; Translations: [skilled nursing (current) use of anticoagulants] Episodic Other gastrointestinal disorders (3 sources) Occult blood in stools; Translations: [Other fecal abnormalities] Episodic Other gastrointestinal disorders (1 source) Angiodysplasia of colon; Translations: [Angiodysplasia of colon without hemorrhage] Episodic Other gastrointestinal disorders (1 source) Abdominal bloating; Translations: [Abdominal distension (gaseous)] Episodic Other gastrointestinal disorders (1 source) Excessive flatus; Translations: [Flatulence] Episodic Other gastrointestinal disorders (1 source) Intra-abdominal and pelvic swelling, mass and lump, unspecified site; Translations: [Palpable mass of pelvis] Onset: Episodic Other gastrointestinal disorders (1 source) Arteriovenous malformation of large intestine; 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] 04-10-2023 Episodic Other gastrointestinal disorders (1 source) Pelvic mass; Translations: [Intra-abdominal and pelvic swelling, mass and lump, unspecified site] 03-25-2023 Episodic Other hereditary and degenerative nervous system conditions (20 sources) Restless legs; Translations: [Restless legs syndrome] Onset: 6 12-27-2015 Chronic Other hereditary and degenerative nervous system conditions (1 source) Restless legs syndrome; Translations: [Restless legs syndrome (RLS)] Onset: 6 Chronic Other lower respiratory disease (8 sources) Dyspnea; Translations: [Shortness of breath] 12-24-2021 Episodic Other lower respiratory disease (1 source) Hypoxia; Translations: [Hypoxemia] 05-25-2023 Episodic Other lower respiratory disease (1 source) Wheezing; Translations: [Wheezing] 02-15-2025 Episodic Other nervous system disorders (1 source) Chronic pain; Translations: [Other chronic pain] 02-15-2025 Chronic Other nervous system disorders (1 source) Other chronic pain; Translations: [Other chronic pain] Onset: 5 Chronic Other non-traumatic joint disorders (1 source) Pain in right knee; Translations: [Pain in right knee] Onset: 5 Episodic Other non-traumatic joint disorders (1 source) Pain in left knee; Translations: [Pain in left knee] Onset: 5 Episodic Other nutritional; endocrine; and metabolic disorders (1 source) Weight gain; Translations: [Abnormal weight gain] Episodic Other skin disorders (2 sources) Eruption; Translations: [Rash and other nonspecific skin eruption] 05-11-2023 Episodic Other upper respiratory disease (20 sources) Allergic rhinitis; Translations: [Allergic rhinitis, unspecified] Onset: 1 12-08-2010 Chronic Residual codes; unclassified (1 source) Bilateral lower limb edema; Translations: [Localized edema] 04-10-2023 Episodic Residual codes; unclassified (1 source) Tobacco use and exposure - finding; Translations: [Tobacco use] 02-15-2025 Episodic Spondylosis; intervertebral disc disorders; other back problems (1 source) Radiculopathy, lumbar region; Translations: [Radiculopathy, lumbar region] Onset: 5 Episodic Substance-related disorders (4 sources) Opioid dependence, uncomplicated; Translations: [Cigarette smoker ] Onset: 5 06-14-2025 Chronic Thyroid disorders (20 sources) Goiter; Translations: [Nontoxic goiter, unspecified] Onset: 2 03-04-2012 Chronic Unclassified (1 source) No current problems or disability 03-17-2017 Past or Other Problems Problem Classification Problem Date Documented Da te Episodic/Chronic Abdominal pain (20 sources) Tenderness of right upper quadrant of abdomen; Translations: [Right upper quadrant abdominal tenderness] Onset: 9 Resolved: 1 Episodic Anal and rectal conditions (17 sources) Anorectal pain; Translations: [Other specified diseases of anus and rectum] Onset: 6 Resolved: 1 03-05-2021 Episodic Coronary atherosclerosis and other heart disease (11 sources) Stented coronary artery; Translations: [Presence of coronary angioplasty implant and graft] Onset: 0 Episodic Comment on above: Successful PCI with Drug eluting stent and PTCA to the pLCx per cath 05/14/20 Diabetes mellitus without complication (5 sources) Prediabetes; Translations: [Prediabetes] Onset: 5 Episodic Gastrointestinal hemorrhage (20 sources) Gastrointestinal hemorrhage; Translations: [Hemorrhage of anus and rectum] Onset: 9 Resolved: 1 08-10-2016 Episodic Hemorrhoids (17 sources) Internal hemorrhoids; Translations: [Other hemorrhoids] Onset: 0 Resolved: 1 03-05-2021 Episodic Nutritional deficiencies (3 sources) Iron deficiency; Translations: [Iron deficiency] Onset: 5 12-29-2023 Episodic Other acquired deformities (20 sources) Spondylolisthesis; Translations: [Spondylolisthesis, site unspecified] Onset: 2 07-22-2012 Episodic Other and unspecified benign neoplasm (20 sources) Benign neoplasm of colon; Translations: [Benign neoplasm of colon, unspecified] Onset: 9 06-24-2009 Episodic Other and unspecified benign neoplasm (20 sources) Benign neoplasm of skin of face; Translations: [Other benign neoplasm of skin of unspecified part of face] Onset: 5 08-13-2015 Episodic Other connective tissue disease (4 sources) Rotator cuff syndrome; Translations: [Impingement syndrome of right shoulder] Onset: 7 04-08-2017 Episodic Other connective tissue disease (1 source) Impingement syndrome of shoulder region; Translations: [Impingement syndrome of right shoulder] Onset: 7 04-08-2017 Episodic Other lower respiratory disease (17 sources) Cough; Translations: [Cough] Onset: 0 Resolved: 1 03-05-2021 Episodic Other lower respiratory disease (1 source) Wheezing; Translations: [Wheezing] Onset: 5 Episodic Other lower respiratory disease (1 source) Dyspnea, unspecified; Translations: [Dyspnea, unspecified type] Onset: 5 Episodic Other non-traumatic joint disorders (4 sources) Shoulder pain; Translations: [Impingement syndrome of shoulder region] Onset: 7 03-19-2017 Episodic Other screening for suspected conditions (not mental disorders or infectious disease) (4 sources) Abnormal blood-gas level; Translations: [Encounter for screening for osteoporosis] Onset: 4 Episodic Other skin disorders (20 sources) Loss of hair; Translations: [Nonscarring hair loss, unspecified] Onset: 9 08-16-2019 Episodic Other skin disorders (17 sources) Sebaceous cyst of skin; Translations: [Sebaceous cyst] Onset: 5 Resolved: 1 03-05-2021 Episodic Other skin disorders (17 sources) Lesion of skin of face; Translations: [Disorder of the skin and subcutaneous tissue, unspecified] Onset: 5 Resolved: 1 03-05-2021 Episodic Residual codes; unclassified (20 sources) Tobacco user; Translations: [Tobacco use] Onset: 2 01-08-2015 Episodic Residual codes; unclassified (20 sources) Insomnia; Translations: [Insomnia, unspecified] Onset: 5 01-08-2015 Episodic Residual codes; unclassified (1 source) Insomnia, unspecified; Translations: [Insomnia, unspecified type] Onset: 5 Episodic Residual codes; unclassified (2 sources) Tobacco use; Translations: [Tobacco use] Onset: 5 Episodic Results Test Name Value Interpretation Reference Range Facility [facility] 08-21-2025 CNOV Office Visit (INTMWS ) HENNY DAMIAN ([id number]) 1955 F Date Time Provider Department 08/21/25 2:20 PM BROOK HORNER INTDONAVAN During your visit today, we recorded the following information about you: Pulse Respiration Blood pressure Weight 71/minute 16/minute 105/67 70.5 kg Height 1.6 m Brook Horner MD 08/21/2025 4:49 PM Signed Henny Damian is a 69 year old female here for a Medicare Wellness visit. Medicare Health Risk Assessment General Health Good Exercise: Minutes/Day 0 min Exercise: Days/Week 0 days Alcohol: Daily Use Never Alcohol: Drinks/Day Patient does not drink Alcohol: 6 or more drinks Never Feel off balance Yes Concerns: Teeth/Dentures No Concerns: Sexual function Decline Troubled by feelings None of the above Frequency: Eating healthy diet Nearly every day ADLs requiring help None of the above Safety precautions in home/vehicle Yes Smoke, vape, chews tobacco Yes, and I might quit Difficulty hearing No Difficulty seeing No Current Providers Specialists: I have reviewed specialist-related care of the patient in the medical record. Medical/Family history review Reviewed and updated problem list, medical/surgical/family /social history, medications, and allergies. Opioid use review Prescribed: hydrocodone/acetaminoph en (last 90 days) Patient-reported: No opioid use on file in the last 90 days Does patient have risk factors for opioid abuse? No Pain overview Current pain concerns and treatment plan reviewed. Patient under the care of a specialist. Depression screening Based on score and interview, patient is at risk for depression. Recommendation: no further intervention at this time Anxiety screening Cognitive screening Mini Cog Score: 5 Cognitive screening reviewed and No further action needed (score 3-5). Functional Observation Was the patient's Timed Up AND Go test unsteady or >= 12 seconds? no Advance Directives Surrogate decision maker and/or advance care plan documented Measurements BP 105/67 Pulse 71 Resp 16 Ht 160 cm (5' 2.99) Wt 70.5 kg (155 lb 6.4 oz) BMI 27.53 kg/m? Vision Screening: Follows with optometry/ophthalmology Assessment/Plan Medicare annual wellness visit, subsequent (Z00.00) - Counseled on healthy diet and regular exercise - Fall avoidance information provided - Personalized prevention plan provided. Reason for Visit Medicare wellness HPI Henny Damian is a 69-year-old female with COPD presenting for a Medicare wellness visit. Henny reports ongoing tobacco use. She is currently using two inhalers: one prescribed by Kate, which she uses in the morning and about an hour before bedtime, and another from Dr. Garibay's office, which she has not been using regularly due to the need to rinse her mouth after use. She reports no longer experiencing nocturnal wheezing and states she sleeps well. She denies waking up gasping for air and does not feel short of breath upon awakening. She is scheduled for a 30-minute walk test on Wednesday to assess her need for supplemental oxygen. She reports cataracts and avoids driving at night. She reports chronic back pain and sciatica, for which she is taking hydrocodone, recently reduced from 2 tablets daily to 1 tablet daily. She also takes gabapentin and tizanidine for pain management. She is taking sertraline for anxiety and depression, which she reports is well controlled. She also takes pravastatin, pantoprazole, and montelukast daily. She lives alone and reports her home is safe with good lighting and handrails on the stairs. She denies regular exercise but climbs 13 stairs to the bathroom 5-6 times daily without difficulty. She reports occasional imbalance and needs new dentures. She reports eating healthy most days and drinks alcohol only 1-2 times per year. She reports feeling occasionally lonely but maintains daily phone contact with friends. SOCIAL HISTORY[1] Past medical history, appointments, medications, allergies reviewed. Pertinent Lab/Diagnostic Studies are reviewed and discussed today Current Outpatient Medications: cnnqrvwciz-fgmknbkj-ots moterol (BREZTRI AEROSPHERE) 160-9-4.8 mcg/actuation HFA aerosol inhaler cholecalciferol (VITAMIN D3) 5,000 unit tab tiZANidine HCl (ZANAFLEX) 4 mg capsule HYDROcodone-acetaminoph en (NORCO) 5-325 mg per tablet cyanocobalamin (VITAMIN B-12) 1,000 mcg tab ascorbic acid, vitamin C, (VITAMIN C) 500 mg tablet apixaban (ELIQUIS) 5 mg tab(s) gabapentin (NEURONTIN) 100 mg capsule folic acid/multivit-min/lutei n (CENTRUM SILVER ORAL) metoprolol succinate ER (TOPROL XL) 50 mg 24 hr tablet BIOTIN ORAL albuterol HFA (PROVENTIL HFA, VENTOLIN HFA) 90 mcg/actuation inhaler traZODone (DESYREL) 150 mg tablet sertraline (ZOLOFT) 50 mg tablet pravastatin (PRAVACHOL) [address] (PROTONIX) 40 mg (more content not included)... Normal [facility] Lipid 1996 panelon 11-06-202 5 Cholesterol [Mass/Vol] 181 mg/dL Normal <200 [facility] Comment on above: Order Comment: Justinai men Type: BLOOD SPECIMENOrdering Facility: [facility] Address: [address] [place] [address] Result Comment: <200 mg/dL, Desirable 200-239 mg/dL, Borderline high >239 mg/dL, High Performed By: #### 2 4331-1 ####[facility] LABCLIA [id number] [address] [place] Cholesterol in HDL [Mass/Vol] 44 mg/dL Normal >39 [facility] Comment on above: Order Comment: Justinai men Type: BLOOD SPECIMENOrdering Facility: [facility] Address: [address] [place] [address] Result Comment: 40-5 9 mg/dL, Acceptable >59 mg/dL, High: Negative risk factor for coronary heart disease <40 mg/dL, Low: Positive risk factor for coronary heart disease Performed By: #### 2 4331-1 ####[facility] LABCLIA [id number] [address] STATES OF [facility] Cholesterol in LDL [Mass/Vol] 100 mg/dL High <100 [facility] Comment on above: Order Comment: Michelle denney Type: BLOOD SPECIMENOrdering Facility: [facility] Address: [address] [place] [address] Result Comment: <100 mg/dL, Optimal 100-129 mg/dL, Near optimal/above optimal 130-159 mg/dL, Borderline high 160-189 mg/dL, High >189 mg/dL, Very high Secondary prevention optimal LDL Cholesterol levels are recommended to be <70 mg/dL LDL cholesterol is calculated using the Beal-NIH equation. Performed By: #### 2 4331-1 ####[facility] LABCLIA [id number] [address] [place] Cholesterol in LDL/Cholesterol in HDL [Mass ratio] 2.27 {ratio} Normal <2.54 [facility] Comment on above: Order Comment: Justinai men Type: BLOOD SPECIMENOrdering Facility: [facility] Address: [address] [place] [address] Result Comment: Diana slater: 1. National Cholesterol Education Program ATP III Guideline At-A-Glance Quick Desk Reference: National Heart, Lung, and Blood [place]. National Institutes of Health. 2001: NIH Publication No. 01-3305. 2. An International Atherosclerosis Society position paper: global recommendations for the management of dyslipidemia: executive summary, Atherosclerosis. 2014: 232(2):410-413. Performed By: #### 2 4331-1 ####[facility] LABCLIA [id number] [place] [address] [place] Cholesterol in VLDL [Mass/Vol] 35 mg/dL High <30 [facility] Comment on above: Order Comment: Speci men Type: BLOOD SPECIMENOrdering Facility: [facility] Address: [address] [place] [address] Performed By: #### 2 4331-1 ####[facility] LABCLIA [id number] [place] [address] [place] Cholesterol non HDL [Mass/Vol] 137 mg/dL High <130 [facility] Comment on above: Order Comment: Speci men Type: BLOOD SPECIMENOrdering Facility: [facility] Address: [address] [place] [address] Result Comment: <130 mg/dL, Optimal 130-159 mg/dL, Near optimal/above optimal 160-189 mg/dL, Borderline high 190-219 mg/dL, High >219 mg/dL, Very high Secondary prevention optimal non HDL Cholesterol levels are recommended to be <100 mg/dL Performed By: #### 2 4331-1 ####[facility] LABCLIA [id number] [address] [place] Cholesterol.total/Cho lesterol in HDL [Mass ratio] 4.11 {ratio} Normal <5.10 [facility] Comment on above: Order Comment: Justinai men Type: BLOOD SPECIMENOrdering Facility: [facility] Address: [address] [place] [address] Performed By: #### 2 4331-1 ####[facility] LABCLIA [id number] [address] [place] FASTING TIME 13 hrs Normal [facility] Comment on above: Order Comment: Speci men Type: BLOOD SPECIMENOrdering Facility: [facility] Address: [address] [place] [address] Performed By: #### 2 4331-1 ####[facility] LABCLIA [id number] [address] [place] Triglyceride [Mass/Vol] 215 mg/dL High <150 [facility] Comment on above: Order Comment: Speci men Type: BLOOD SPECIMENOrdering Facility: [facility] Address: [address] [place] [address] Result Comment: <150 mg/dL, Normal 150-199 mg/dL, Borderline high 200-499 mg/dL, High >499 mg/dL, Very high Performed By: #### 2 4331-1 ####[facility] LABCLIA [id number] [address] [place] CNCOon 08-09-2025 CNCO Letter Text Normal [facility] CNPNon 08-03-2025 CNPN Telephone (PULWS) HENNY DAMIAN ([id number]) 1955 F Date Time Provider Department 08/03/25 LIA GARIBAY PULWS During your visit today, we recorded the following information about you: Carmelita Felix MA 08/03/2025 10:37 AM Signed [facility] calling to see if pt can get orders for nocturnal oxygen pending ambulation study. Please review and advise. HARRY Mcdonough Kathleen, LPN 08/03/2025 10:52 AM Signed Pended nocturnal O2 for provider sign off. She cancelled ambulatory oximetry appointment in June. She should reschedule this MELISSA. INDERJIT Miller Sherrie 08/04/2025 9:[address] attempt left message to return call Stacy Nathan 08/07/2025 2:56 PM Signed Spoke with patient, advising below. Patient unable to schedule at the time of call. PSS advised her to call back MELISSA to schedule. Allergies As of Date: 08/03/2025 Noted Allergy Reaction DOXYCYCLINE HCL 06/17/2005 14 - Other: See Comments Comments: insomnia Date Reviewed: 06/14/2025 Reviewed by: Lia Garibay MD - Fully Assessed Primary Visit Diagnosis:Acute and chronic respiratory failure with hypoxia ([facility]) [J96.21] Order(s):OXYGEN FOR HOME USE [[id number]] Order #: [id number] Prescriptions as of 08/07/2025 - kcaobcplhe-wunjuflv-nqa moterol (BREZTRI AEROSPHERE) 160-9-4.8 mcg/actuation HFA aerosol inhaler Inhale 2 puffs as instructed two times a day. - albuterol HFA (PROVENTIL HFA, VENTOLIN HFA) 90 mcg/actuation inhaler Inhale 2 puffs as instructed every 4 hours as needed for wheezing/shortness of breath. - montelukast (SINGULAIR) 10 mg tablet Take 1 tablet by mouth daily at bedtime. - cholecalciferol (VITAMIN D3) 5,000 unit tab Take 1 tablet by mouth once daily. - pantoprazole DR (PROTONIX) 40 mg tablet Take 1 tablet by mouth two times a day. - pravastatin (PRAVACHOL) 20 mg tablet Take 1 tablet by mouth once daily. - traZODone (DESYREL) 150 mg tablet Take 1 tablet by mouth daily at bedtime. - sertraline (ZOLOFT) 50 mg tablet Take 1 tablet by mouth once daily. - tiZANidine HCl (ZANAFLEX) 4 mg capsule EVERY 8 HOURS - HYDROcodone-acetaminoph en (NORCO) 5-325 mg per tablet Take 1 tablet by mouth two times a day. - cyanocobalamin (VITAMIN B-12) 1,000 mcg tab Take 1 tablet by mouth once daily. - ascorbic acid, vitamin C, (VITAMIN C) 500 mg tablet Take 1 tablet by mouth once daily. - apixaban (ELIQUIS) 5 mg tab(s) Take 5 mg by mouth twice daily. - gabapentin (NEURONTIN) 100 mg capsule Take 100 mg by mouth twice daily. - folic acid/multivit-min/lutei n (CENTRUM SILVER ORAL) Take by mouth once daily. - metoprolol succinate ER (TOPROL XL) 50 mg 24 hr tablet Take 50 mg by mouth once daily. - BIOTIN ORAL Take 1 tablet by mouth once daily. 500 mg Problem List As Of Date 08/03/2025 Noted Resolved ESOPHAGEAL REFLUX [K21.9] 06/17/2005 Insomnia, unspecified [G47.00] 06/17/2005 Inguinal pain [R10.30] 05/31/2009 03/05/2021 Blood in stool [K92.1] 06/12/2009 03/05/2021 Benign Neoplasm of Colon [D12.6] 06/24/2009 Internal hemorrhoids without mention of complic*12/30/2009 03/05/2021 Routine gynecological examination [Z01.419] 01/03/2010 03/05/2021 Class: Chronic Cough [R05.9] 02/14/2010 03/05/2021 Allergic rhinitis [J30.9] 12/08/2010 Goiter [E04.9] 03/04/2012 Tobacco abuse [Z72.0] 03/04/2012 Hyperlipidemia [E78.5] 03/04/2012 Moderate episode of recurrent major depressive *07/22/2012 Spondylolisthesis [M43.10] 07/22/2012 Sebaceous cyst [L72.3] 07/19/2015 03/05/2021 Skin lesion of face [L98.9] 07/19/2015 03/05/2021 Anxiety [F41.9] 07/26/2015 Benign neoplasm of skin of face [D23.30] 08/13/2015 Restless legs syndrome (RLS) [G25.81] 12/27/2015 Anal or rectal pain [K62.89] 08/10/2016 03/05/2021 Bright red blood per rectum [K62.5] 08/10/2016 Hair loss [L65.9] 08/16/2019 Coronary artery disease involving hamilton lopez*06/20/2021 Paroxysmal A-fib (HCC) [I48.0] 05/09/2023 Anxiety with depression [F41.8] 08/16/2024 Encounter Status:Closed by BRAXTON, HOPE Crystal on 08/03/25 [facility] CNPOlga 07-06-2025 CNPN Telephone (4CQ) HENNY DAMIAN ([id number]) 1955 F Date Time Provider Department 07/06/25 EDDA LAUREN 4CQ During your visit today, we recorded the following information about you: KainCarmel 07/06/2025 10:56 AM Signed Pt returned call and was advised ok to use inhaler. Pt had not further questions Allergies As of Date: 07/06/2025 Noted Allergy Reaction DOXYCYCLINE HCL 06/17/2005 14 - Other: See Comments Comments: insomnia Date Reviewed: 06/14/2025 Reviewed by: Lia Garibay MD - Fully Assessed Reason for Visit: Patient Update [1234] Prescriptions as of 07/06/2025 - miamyrovgj-xzheuhha-nwr moterol (BREZTRI AEROSPHERE) 160-9-4.8 mcg/actuation HFA aerosol inhaler Inhale 2 puffs as instructed two times a day. - albuterol HFA (PROVENTIL HFA, VENTOLIN HFA) 90 mcg/actuation inhaler Inhale 2 puffs as instructed every 4 hours as needed for wheezing/shortness of breath. - montelukast (SINGULAIR) 10 mg tablet Take 1 tablet by mouth daily at bedtime. - cholecalciferol (VITAMIN D3) 5,000 unit tab Take 1 tablet by mouth once daily. - pantoprazole DR (PROTONIX) 40 mg tablet Take 1 tablet by mouth two times a day. - pravastatin (PRAVACHOL) 20 mg tablet Take 1 tablet by mouth once daily. - traZODone (DESYREL) 150 mg tablet Take 1 tablet by mouth daily at bedtime. - sertraline (ZOLOFT) 50 mg tablet Take 1 tablet by mouth once daily. - tiZANidine HCl (ZANAFLEX) 4 mg capsule EVERY 8 HOURS - HYDROcodone-acetaminoph en (NORCO) 5-325 mg per tablet Take 1 tablet by mouth two times a day. - cyanocobalamin (VITAMIN B-12) 1,000 mcg tab Take 1 tablet by mouth once daily. - ascorbic acid, vitamin C, (VITAMIN C) 500 mg tablet Take 1 tablet by mouth once daily. - apixaban (ELIQUIS) 5 mg tab(s) Take 5 mg by mouth twice daily. - gabapentin (NEURONTIN) 100 mg capsule Take 100 mg by mouth twice daily. - folic acid/multivit-min/lutei n (CENTRUM SILVER ORAL) Take by mouth once daily. - metoprolol succinate ER (TOPROL XL) 50 mg 24 hr tablet Take 50 mg by mouth once daily. - BIOTIN ORAL Take 1 tablet by mouth once daily. 500 mg Problem List As Of Date 07/06/2025 Noted Resolved ESOPHAGEAL REFLUX [K21.9] 06/17/2005 Insomnia, unspecified [G47.00] 06/17/2005 Inguinal pain [R10.30] 05/31/2009 03/05/2021 Blood in stool [K92.1] 06/12/2009 03/05/2021 Benign Neoplasm of Colon [D12.6] 06/24/2009 Internal hemorrhoids without mention of complic*12/30/2009 03/05/2021 Routine gynecological examination [Z01.419] 01/03/2010 03/05/2021 Class: Chronic Cough [R05.9] 02/14/2010 03/05/2021 Allergic rhinitis [J30.9] 12/08/2010 Goiter [E04.9] 03/04/2012 Tobacco abuse [Z72.0] 03/04/2012 Hyperlipidemia [E78.5] 03/04/2012 Moderate episode of recurrent major depressive *07/22/2012 Spondylolisthesis [M43.10] 07/22/2012 Sebaceous cyst [L72.3] 07/19/2015 03/05/2021 Skin lesion of face [L98.9] 07/19/2015 03/05/2021 Anxiety [F41.9] 07/26/2015 Benign neoplasm of skin of face [D23.30] 08/13/2015 Restless legs syndrome (RLS) [G25.81] 12/27/2015 Anal or rectal pain [K62.89] 08/10/2016 03/05/2021 Bright red blood per rectum [K62.5] 08/10/2016 Hair loss [L65.9] 08/16/2019 Coronary artery disease involving hamilton lopez*06/20/2021 Paroxysmal A-fib (HCC) [I48.0] 05/09/2023 Anxiety with depression [F41.8] 08/16/2024 Encounter Status:Closed by CARMEL WAHL on 07/06/25 [facility] CNPN Telephone (PULCrystalWS) HENNY DAMIAN ([id number]) 1955 F Date Time Provider Department 07/05/25 LIA GARIBAY During your visit today, we recorded the following information about you: Lia Garibay MD 07/05/2025 8:24 AM Signed Left voicemail message. Overnight oximetry shows need for supplemental oxygen. Will need formal ambulation test to see if also qualifies for portable oxygen. Stacy Nathan 07/05/2025 3:13 PM Signed Spoke with patient, advising the message below. Scheduled fro this coming Wednesday. Patient is asking if she should use her inhaler prior to the test. Please advise. Edda Billings LPN 07/06/2025 8:17 AM Signed Attempted to contact patient, unable to leave voicemail. INDERJIT Miller Kathleen, LPN 07/06/2025 10:35 AM Signed Second attempt to contact patient. Patient unable to hear this nurse over phone. Need to advise that it is okay to use medication as directed prior to testing. Edda Lauren LPN Allergies As of Date: 07/05/2025 Noted Allergy Reaction DOXYCYCLINE HCL 06/17/2005 14 - Other: See Comments Comments: insomnia Date Reviewed: 06/14/2025 Reviewed by: Lia Garibay MD - Fully Assessed Reason for Visit: Results [95] Cmt: Oximetry Primary Visit Diagnosis:Centrilobular emphysema (HCC) [J43.2] Order(s):OXIMETRY WITH AMBULATION [[id number]] Order #: [id number]: 1 FUTURE Prescriptions as of 07/06/2025 - rphyndrlfo-exogfmek-hil moterol (BREZTRI AEROSPHERE) 160-9-4.8 mcg/actuation HFA aerosol inhaler Inhale 2 puffs as instructed two times a day. - albuterol HFA (PROVENTIL HFA, VENTOLIN HFA) 90 mcg/actuation inhaler Inhale 2 puffs as instructed every 4 hours as needed for wheezing/shortness of breath. - montelukast (SINGULAIR) 10 mg tablet Take 1 tablet by mouth daily at bedtime. - cholecalciferol (VITAMIN D3) 5,000 unit tab Take 1 tablet by mouth once daily. - pantoprazole DR (PROTONIX) 40 mg tablet Take 1 tablet by mouth two times a day. - pravastatin (PRAVACHOL) 20 mg tablet Take 1 tablet by mouth once daily. - traZODone (DESYREL) 150 mg tablet Take 1 tablet by mouth daily at bedtime. - sertraline (ZOLOFT) 50 mg tablet Take 1 tablet by mouth once daily. - tiZANidine HCl (ZANAFLEX) 4 mg capsule EVERY 8 HOURS - HYDROcodone-acetaminoph en (NORCO) 5-325 mg per tablet Take 1 tablet by mouth two times a day. - cyanocobalamin (VITAMIN B-12) 1,000 mcg tab Take 1 tablet by mouth once daily. - ascorbic acid, vitamin C, (VITAMIN C) 500 mg tablet Take 1 tablet by mouth once daily. - apixaban (ELIQUIS) 5 mg tab(s) Take 5 mg by mouth twice daily. - gabapentin (NEURONTIN) 100 mg capsule Take 100 mg by mouth twice daily. - folic acid/multivit-min/lutei n (CENTRUM SILVER ORAL) Take by mouth once daily. - metoprolol succinate ER (TOPROL XL) 50 mg 24 hr tablet Take 50 mg by mouth once daily. - BIOTIN ORAL Take 1 tablet by mouth once daily. 500 mg Problem List As Of Date 07/05/2025 Noted Resolved ESOPHAGEAL REFLUX [K21.9] 06/17/2005 Insomnia, unspecified [G47.00] 06/17/2005 Inguinal pain [R10.30] 05/31/2009 03/05/2021 Blood in stool [K92.1] 06/12/2009 03/05/2021 Benign Neoplasm of Colon [D12.6] 06/24/2009 Internal hemorrhoids without mention of complic*12/30/2009 03/05/2021 Routine gynecological examination [Z01.419] 01/03/2010 03/05/2021 Class: Chronic Cough [R05.9] 02/14/2010 03/05/2021 Allergic rhinitis [J30.9] 12/08/2010 Goiter [E04.9] 03/04/2012 Tobacco abuse [Z72.0] 03/04/2012 Hyperlipidemia [E78.5] 03/04/2012 Moderate episode of recurrent major depressive *07/22/2012 Spondylolisthesis [M43.10] 07/22/2012 Sebaceous cyst [L72.3] 07/19/2015 03/05/2021 Skin lesion of face [L98.9] 07/19/2015 03/05/2021 Anxiety [F41.9] 07/26/2015 Benign neoplasm of skin of face [D23.30] 08/13/2015 Restless legs syndrome (RLS) [G25.81] 12/27/2015 Anal or rectal pain [K62.89] 08/10/2016 03/05/2021 Bright red blood per rectum [K62.5] 08/10/2016 Hair loss [L65.9] 08/16/2019 Coronary artery disease involving hamilton lopez*06/20/2021 Paroxysmal A-fib (HCC) [I48.0] 05/09/2023 Anxiety with depression [F41.8] 08/16/2024 Encounter Status:Closed by LIA GARIBAY on 07/05/25 Normal [facility] CNOVon 06-14-2025 CNOV Office Visit (PULMWS ) HENNY DAMIAN ([id number]) 1955 F Date Time Provider Department 06/14/25 3:15 PM LIA GARIBAY PULMWS During your visit today, we recorded the following information about you: Pulse Respiration Blood pressure Weight 67/minute 18/minute 110/72 73 kg Height 1.6 m Lia Garibay MD 06/14/2025 4:34 PM Addendum . Respiratory [place] Note Patient name: Henny Damian PCP: Brook Horner MD Referring Physician: Kate Cervantes CNP Recording using [employer] software for draft documentation of the visit was discussed with the patient/authorized senior patient account representative; all questions welcomed and answered. Patient/authorized senior patient account representative agreed to proceed CC: Low oxygen HPI: Henny Damian 69 year old female current 76-krom-bucu smoker with PMH significant for CAD s/p PCI/stent, AF on AC, GERD, participating in lung cancer screening, emphysema noted on lung cancer screening CT being referred for low oxygen levels. Henny reports a recent episode of desaturation to 90% during a walk test conducted by her primary care provider, which prompted a referral for further evaluation. She does not monitor her oxygen levels at home and has not been prescribed supplemental oxygen. She expresses willingness to use oxygen if necessary, but currently does not feel the need for it. She is currently using an albuterol inhaler, which she reports has significantly improved her breathing and reduced nocturnal wheezing. She was also prescribed Singulair less than a month ago, but has not noticed any improvement in her breathing with this medication. Respiratory symptoms consist of LEGER, wheezing and cough productive of phlegm. Phlegm more prominent in am which she relates to post nasal drip. No recurrent bronchitis or pneumonia. She is an active smoker and has only been able to quit smoking for less than a week. She has not used nicotine replacement and is leary of Chantix as her had bad side effects. DATA: PFT: Imaging / Diagnostic Studies: DATE OF EXAM: Sep 13 2024 11:59AM [facility] 0562 - CT LUNG SCREEN WO IVCON / RESULT: Are nodules present? Yes, 6 or more nodules New nodules: No Enlarging nodules: No Other lung nodule comments: Few sub-6 mm (average diameter) pulmonary nodules. For reference, 5 mm RIGHT upper lobe nodule (image 55), 2.5 mm posterior RIGHT upper lobe nodule (82), 4 mm RIGHT lower lobe nodule (210), 2.5 mm LEFT lower lobe nodule (175) and 2 mm LEFT lower lobe nodule (102). Other findings: Mild subpleural groundglass opacities in the RIGHT middle lobe and lateral RIGHT lower lobe Minimal secretions in the RIGHT mainstem bronchus with diffuse bronchial wall thickening. Small calcified nodule in the RIGHT thyroid lobe. Atherosclerotic calcifications are present in the thoracic aorta and aortic root. Indeterminate nodular density in the RIGHT breast (7:55). Screening mammography from 08/23/2024 was negative for malignancy. Decreased bone density with degenerative changes in the thoracic spine. Atherosclerotic calcifications in the abdominal aorta and branch vessels. Emphysema: Moderate, centrilobular, upper lobe Coronary Artery Calcifications: Circumflex severe; Left Anterior Descending severe; Right Coronary mild Review of CT shows emphysema and several nodules PAST MEDICAL HISTORY Diagnosis Date Arthritis Atrial fibrillation (HCC) Coronary artery disease PCI/Stent COVID-19 05/2022 Depression GERD (gastroesophageal reflux disease) Hayfever Hemorrhoid History of transfusion ALLERGIES Allergen Reactions Doxycycline Hcl Other: See Comments insomnia phzwxgefib-nlcjoexj-bne moterol (BREZTRI AEROSPHERE) 160-9-4.8 mcg/actuation HFA aerosol inhaler Inhale 2 puffs as instructed two times a day. albuterol HFA (PROVENTIL HFA, VENTOLIN HFA) 90 mcg/actuation inhaler Inhale 2 puffs as instructed every 4 hours as needed for wheezing/shortness of breath. montelukast (SINGULAIR) 10 mg tablet Take 1 tablet by mouth daily at bedtime. cholecalciferol (VITAMIN D3) 5,000 unit tab Take 1 tablet by mouth once daily. pantoprazole DR (PROTONIX) 40 mg tablet Take 1 tablet by mouth two times a day. pravastatin (PRAVACHOL) 20 mg tablet Take 1 tablet by mouth once daily. traZODone (DESYREL) 150 mg tablet Take 1 tablet by mouth daily at bedtime. sertraline (ZOLOFT) 50 mg tablet Take 1 tablet by mouth once daily. tiZANidine HCl (ZANAFLEX) 4 mg capsule EVERY 8 HOURS HYDROcodone-acetaminoph en (NORCO) 5-325 mg per tablet Take 1 tablet by mouth two times a day. cyanocobalamin (VITAMIN B-12) 1,000 mcg tab Take 1 tablet by mouth once daily. ascorbic acid, vitamin C, (VITAMIN C) 500 mg tablet Take 1 tablet by mouth once daily. apixaban (ELIQUIS) 5 mg tab(s) Take 5 mg by mouth twice daily. gabapentin (NEURONTIN) 100 mg (more content not included)... 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 No contraindications or sensitivities were noted. Meds taken: No inhaled respiratory medications taken before testing. 4 puffs Albuterol (360 mcg) delivered by MDI via holding chamber. HR pre = 67 /min, HR post = 67/min. Current ATS/ERS acceptability and repeatability standards for DLCO met with 2 acceptable maneuvers. PRE-BRONCHODILAOR: The two largest FVCs were repeatable. The two largest FEV1s were repeatable. Early termination of expiration and no valid expiratory plateau per ATS/ERS guidelines. POST-BRONCHDILATOR: Current ATS/ERS acceptability and repeatability standards for spirometry met. Start of test and EOFE criteria met. IMPRESSION: Spirometry indicates moderate obstruction. Positive bronchodilator response. The diffusing capacity (uncorrected for hemoglobin) is reduced. Electronically Signed On 06-15-2025 14:33:39 EDT by Lia Garibay MD ID: [id number] Name: HENNY DAMIAN Race: White Ht: 62.99 in Wt: 161.00 lbs Age: 69 Gender: Female : 1955 Dx: COPD_ Smoking Hx: Non-smoker Doctor: LIA GARIBAY Test Date: 06/14/2025 Site: Tech: Magali Conway PRE-BRONCH POST-BRONCH Acosta LLN Pred ULN %Pred ZScore Acosta %Pred %Chg ZScore SPIROMETRY FVC 2.25 1.88 2.65 3.44 85 -0.83 3.27 123 38 1.30 FEV1 1.14 1.45 2.07 2.66 54 -2.42 1.41 67 13 -1.74 FEV1/FVC 0.50 0.66 0.79 0.89 63 -3.12 0.43 54 -14 -3.61 FEFMax 2.85 3.87 5.52 7.18 51 -2.66 3.29 59 15 -2.22 FEF50 0.46 1.42 3.03 4.64 15 -2.62 0.94 30 101 -2.14 FIF50 2.29 2.28 0 FEF50/FIF50 0.20 90-100 0.41 102 FIVC 1.65 2.70 63 QZI57-13 0.40 0.86 1.85 3.25 21 -2.80 0.88 47 119 -1.60 ExpiredTime 9.59 15.45 61 TimeToFEFMax 0.10 0.10 0 ELGIN 0.07 0.04 -38 VolExtrap% 3 1 -57 LUNG DIFFUSION DLCOunc 12.04 13.96 18.53 24.16 64 -2.46 DLCOStdPB 11.76 13.96 18.53 24.16 63 -2.59 VA 4.23 3.53 4.41 5.38 95 -0.33 Kco 2.79 3.20 4.19 5.31 66 -2.40 Comments: Medications and Allergies were reviewed for possible drug interactions per policy. No contraindications or sensitivities were noted. Meds taken: No inhaled respiratory medications taken before testing. 4 puffs Albuterol (360 mcg) delivered by MDI via holding chamber. HR pre = 67 /min, HR post = 67/min. Current ATS/ERS acceptability and repeatability standards for DLCO met with 2 acceptable maneuvers. PRE-BRONCHODILAOR: The two largest FVCs were repeatable. The two largest FEV1s were repeatable. Early termination of expiration and no valid expiratory plateau per ATS/ERS guidelines. POST-BRONCHDILATOR: Current ATS/ERS acceptability and repeatability standards for spirometry met. Start of test and EOFE criteria met. Normal [facility] SPIROMETRY WITH DILATOR IF O BSTRUCTEDon 06-14-2025 SPIROMETRY WITH DILATOR IF OBSTRUCTED [facility] [place] [address] 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 No contraindications or sensitivities were noted. Meds taken: No inhaled respiratory medications taken before testing. 4 puffs Albuterol (360 mcg) delivered by MDI via holding chamber. HR pre = 67 /min, HR post = 67/min. Current ATS/ERS acceptability and repeatability standards for DLCO met with 2 acceptable maneuvers. PRE-BRONCHODILAOR: The two largest FVCs were repeatable. The two largest FEV1s were repeatable. Early termination of expiration and no valid expiratory plateau per ATS/ERS guidelines. POST-BRONCHDILATOR: Current ATS/ERS acceptability and repeatability standards for spirometry met. Start of test and EOFE criteria met. IMPRESSION: Spirometry indicates moderate obstruction. Positive bronchodilator response. The diffusing capacity (uncorrected for hemoglobin) is reduced. Electronically Signed On 06-15-2025 14:33:39 EDT by Lia Garibay MD ID: [id number] Name: HENNY DAMIAN Race: White Ht: 62.99 in Wt: 161.00 lbs Age: 69 Gender: Female : 1955 Dx: COPD_ Smoking Hx: Non-smoker Doctor: LIA GARIBAY Test Date: 06/14/2025 Site: WO Tech: Magali Conway PRE-BRONCH POST-BRONCH Acosta LLN Pred ULN %Pred ZScore Acosta %Pred %Chg ZScore SPIROMETRY FVC 2.25 1.88 2.65 3.44 85 -0.83 3.27 123 38 1.30 FEV1 1.14 1.45 2.07 2.66 54 -2.42 1.41 67 13 -1.74 FEV1/FVC 0.50 0.66 0.79 0.89 63 -3.12 0.43 54 -14 -3.61 FEFMax 2.85 3.87 5.52 7.18 51 -2.66 3.29 59 15 -2.22 FEF50 0.46 1.42 3.03 4.64 15 -2.62 0.94 30 101 -2.14 FIF50 2.29 2.28 0 FEF50/FIF50 0.20 90-100 0.41 102 FIVC 1.65 2.70 63 ZMH85-56 0.40 0.86 1.85 3.25 21 -2.80 0.88 47 119 -1.60 ExpiredTime 9.59 15.45 61 TimeToFEFMax 0.10 0.10 0 ELGIN 0.07 0.04 -38 VolExtrap% 3 1 -57 LUNG DIFFUSION DLCOunc 12.04 13.96 18.53 24.16 64 -2.46 DLCOStdPB 11.76 13.96 18.53 24.16 63 -2.59 VA 4.23 3.53 4.41 5.38 95 -0.33 Kco 2.79 3.20 4.19 5.31 66 -2.40 Comments: Medications and Allergies were reviewed for possible drug interactions per policy. No contraindications or sensitivities were noted. Meds taken: No inhaled respiratory medications taken before testing. 4 puffs Albuterol (360 mcg) delivered by MDI via holding chamber. HR pre = 67 /min, HR post = 67/min. Current ATS/ERS acceptability and repeatability standards for DLCO met with 2 acceptable maneuvers. PRE-BRONCHODILAOR: The two largest FVCs were repeatable. The two largest FEV1s were repeatable. Early termination of expiration and no valid expiratory plateau per ATS/ERS guidelines. POST-BRONCHDILATOR: Current ATS/ERS acceptability and repeatability standards for spirometry met. Start of test and EOFE criteria met. FVC_PRE (L) : 2.25 L FVC_POST (L) : 3.27 L FVC_PRED (L) : 2.65 L FVC_LLN (L) : 1.88 L FVC_ULN (L) : 3.44 L FEV1_PRE (L) : 1.14 L FEV1_POST (L) : 1.41 L FEV1_PRED (L) : 2.07 L FEV1_LLN (L) : 1.45 L FEV1_ULN (L) : 2.66 L FEV1/FVC_PRE (%) : 50 % FEV1/FVC_POST (%) : 43 % FEV1/FVC_PRED (%) : 79 % FEV1/FVC_LLN (%) : 66 % QGX49_TVQ (L/S) : 1.18 L/S LLX00_TYNB (L/S) : 1.99 L/S VZI61_UXM (L/S) : 0.17 L/S SFT92_QEAV (L/S) : 0.49 L/S AOA69_DHAD (L/S) : 0.45 L/S WQX97_XON (L/S) : 0.17 L/S VFN30_CDQ (L/S) : 1.18 L/S LZB23-99%_PRE (L/S) : 0.40 L/S WAG62-24%_POST (L/S) : 0.88 L/S SKQ90-40%_PRED (L/S) : 1.85 L/S GRO23-25%_LLN (L/S) : 0.86 L/S PEF_PRE (L/S) : 2.85 L/S PEF_POST (L/S) : 3.29 L/S PEFMAX_LLN (L/S) : 3.87 L/S PEFMAX_ULN (L/S) : 7.18 L/S SVC_PRED (L) : 2.65 L/S SVC_LLN (L) : 1.88 L/S SVC_ULN (L/S) : 3.44 L/S IC_PRED (L) : 1.77 L/S ERV_PREDICTED (L) : 0.88 L/S DLCO (ML/MIN/MMHG) : 12.04 ml/min/mmHg DLCO_PRED (ML/MIN/MMHG) : 18.53 ml/min/mmHg DLCO_LLN(ML/MIN/MMHG) : 13.96 ml/min/mmHg DLCO_ULN (ML/MIN/MMHG) : 24.16 ml/min/mmHg FET_PRE (S) : 9.59 S FET_POST (S) : 15.45 S VA (L) : 4.23 L VA_PRD (L) : 4.41 L DLCO/VA (ML/MIN/MMHG/L) : 0.03 ml/min/mmHg/L DLCO_VA_PRED (L) : 0.04 ml/min/mmHg/L DLCOCOR (ML/MIN/MMHG) : 11.76 ml/min/mmHg DLCOCOR_PRED (ML/MIN/MMHG) : 18.53 ml/min/mmHg DLCO/VACOR (ML/MIN/MMHG/L) : 0.03 ml/min/mmHg/L Normal [facility] CNOVon 05-17-2025 CNOV Office Visit (INTMWS ) HENNY DAMIAN ([id number]) 1955 F Date Time Provider Department 05/17/25 2:20 PM KATE CERVANTES INTMWS During your visit today, we recorded the following information about you: Pulse Respiration Blood pressure Weight 71/minute 16/minute 122/66 71.2 kg Kate Cervantes APRN.PUBLIC SERVICE ADMINISTRATOR 05/17/2025 3:28 PM Signed CC: Patient presents with: Recheck: 3 month follow up HPI Henny Damian is a 69 year old female who presents today for follow up on respiratory concerns. Recording using [employer] software for draft documentation of the visit was discussed with the patient/authorized senior patient account representative; all questions welcomed and answered. Patient/authorized senior patient account representative agreed to proceed Dyspnea and Wheezing: - Dyspnea and wheezing have remained unchanged since last visit. - Wheezing predominantly occurs at night while in bed. - Denies use of an inhaler. - Denies significant dyspnea during the day. - Experiences fatigue with prolonged activity, such as walking around a store. - Denies chest pressure, palpitations, or syncope. - Reports occasional dizziness, attributed to not eating breakfast or lunch. - Denies increased dyspnea or wheezing with ambulation. - Denies productive cough during the day; reports clear sputum in the morning. - Last lung cancer screening CT was negative. - Smokes approximately 16 cigarettes per day. - Denies previous use of albuterol inhaler. REVIEW OF SYSTEMS See HPI PAST MEDICAL HISTORY Diagnosis Date Arthritis Atrial fibrillation (HCC) had stent placement Coronary artery disease COVID-19 05/2022 Depression GERD (gastroesophageal reflux disease) Hayfever Hemorrhoid History of transfusion PAST SURGICAL HISTORY Procedure Laterality Date ABDOMINAL SURGERY HX , CLASSIC, ANTE/POST CA 1994 COLONOSCOPY 09/11/2022 repeat in 10 years COLONOSCOPY FLX DX W/COLLJ SPEC WHEN PFRMD 12/19/2018 Colonoscopy COLSC FLX W/RMVL OF TUMOR POLYP LESION SNARE TQ 06/24/2009 polyp at 25cm EGD 09/11/2022 ESOPHAGOGASTRODUODENOSC OPY TRANSORAL DIAGNOSTIC 12/19/2018 EGD HEMORRHOIDECTOMY INT AND XTRNL 2/> COLUMN/JULIENNE 03/06/2010 HERNIA REPAIR HX PAST SURGICAL HISTORY OF Late Hernia repair PAST SURGICAL HISTORY OF 2011 polyp vocal cord STENT PLACEMENT Left 05/14/2020 [facility]-left circumflex THROAT SURGERY PROCEDURE UNLISTED 12/27/2012 polyp vocal cord TONSILLECTOMY HX TOTAL ABDOMINAL HYSTERECT W/WO RMVL TUBE OVARY 1997 [facility] - benign indication (endometrial implants) - 1997 VAGINAL HYSTERECTOMY X-RAY LUMBAR SPINE AP AND LAT 08/28/2015 [facility]-degenerative changes ALLERGIES Doxycycline Hcl MEDICATIONS albuterol HFA (PROVENTIL HFA, VENTOLIN HFA) 90 mcg/actuation inhaler Inhale 2 puffs as instructed every 4 hours as needed for wheezing/shortness of breath. montelukast (SINGULAIR) 10 mg tablet Take 1 tablet by mouth daily at bedtime. cholecalciferol (VITAMIN D3) 5,000 unit tab Take 1 tablet by mouth once daily. pantoprazole DR (PROTONIX) 40 mg tablet Take 1 tablet by mouth two times a day. pravastatin (PRAVACHOL) 20 mg tablet Take 1 tablet by mouth once daily. traZODone (DESYREL) 150 mg tablet Take 1 tablet by mouth daily at bedtime. sertraline (ZOLOFT) 50 mg tablet Take 1 tablet by mouth once daily. tiZANidine HCl (ZANAFLEX) 4 mg capsule EVERY 8 HOURS HYDROcodone-acetaminoph en (NORCO) 5-325 mg per tablet Take 1 tablet by mouth two times a day. cyanocobalamin (VITAMIN B-12) 1,000 mcg tab Take 1 tablet by mouth once daily. ascorbic acid, vitamin C, (VITAMIN C) 500 mg tablet Take 1 tablet by mouth once daily. apixaban (ELIQUIS) 5 mg tab(s) Take 5 mg by mouth twice daily. gabapentin (NEURONTIN) 100 mg capsule Take 100 mg by mouth twice daily. folic acid/multivit-min/lutei n (CENTRUM SILVER ORAL) Take by mouth once daily. metoprolol succinate ER (TOPROL XL) 50 mg 24 hr tablet Take 50 mg by mouth once daily. BIOTIN ORAL Take 1 tablet by mouth once daily. 500 mg FAMILY HISTORY Problem Relation Age of Onset Diabetes Mother other (NE) Mother other (NE) Father COPD Sister Emphysema Sister No Known Problems Brother No Known Problems Maternal Grandmother No Known Problems Maternal Grandfather No Known Problems Paternal Grandmother No Known Problems Paternal Grandfather No Known Problems Daughter Social History Tobacco Use Smoking status: Every Day Current packs/day: 1.00 Average packs/day: 1 pack/day for 30.0 years (30.0 ttl pk-yrs) Types: Cigarettes Smokeless tobacco: Never Vaping Use Vaping status: Never Used Substance Use Topics Alcohol use: Yes Comment: rare - 1 drink a few times a year Drug use: Not Currently Types: Marijuana PHYSICAL EXAM BP 122/66 Pulse 71 Resp 16 Wt 71.2 kg (157 lb) SpO2 92% BMI 28.35 kg/m? General Appearance: well appearing, in no acu (more content not included)... Normal [facility] XR CHEST 2V FRONTAL/LATon XR CHEST 2V FRONTAL/LAT * * *Final Report* * * DATE OF EXAM: May 17 2025 3:13PM WOX [id number] - XR CHEST 2V FRONTAL/LAT / PROCEDURE REASON: multiple diagnoses * * * * Physician Interpretation * * * * EXAMINATION: CHEST RADIOGRAPH (2 VIEW FRONTAL and LATERAL) CLINICAL HISTORY: Low oxygen saturation Wheezing MQ: XC2_6 EXAM DATE/TIME: 05/17/2025 3:13 PM COMPARISON: No relevant prior studies available. RESULT: Lines, tubes, and devices: None. Lungs and pleura: No consolidation. No lung mass. No pleural effusion. No pneumothorax. Cardiomediastinal silhouette: Normal cardiomediastinal silhouette. Bones and soft tissues: Unremarkable. IMPRESSION: No acute radiographic abnormality. Remote Medical Coder: PSCB Transcribe Date/Time: May 18 2025 1:00P Dictated by : FELIBERTO GOMEZ MD This examination was interpreted and the report reviewed and electronically signed by: FELIBERTO GOMEZ MD on May 18 2025 1:01PM EST [id number] Normal [facility] HbA1c (Bld)on 02-15-2025 Average glucose Estimated from glycated hemoglobin (Bld) [Mass/Vol] 114 mg/dL [facility] Comment on above: eAG: (Estimated aver age glucose) is a calculated value from HgbA1c and is senior patient account representative of the average blood glucose level in the last 2-3 month period. HbA1c (Bld) [Mass fraction] 5.6 % 4.3 - 5.6 % [facility] Comment on above: [place] Diabetes As sociation guidelines indicate that patients with HgbA1c in the range 5.7-6.4% are at increased risk for development of diabetes, and intervention by lifestyle modification may be beneficial. HgbA1c greater or equal to 6.5% is considered diagnostic of diabetes. [facility] Basic metabolic 2000 panelon 02-14-2025 Anion gap [Moles/Vol] 8 mmol/L Normal 8-15 [facility] Comment on above: Order Comment: Speci men Type: BLOOD SPECIMENOrdering Facility: [facility] Address: [address] [place] [address] Performed By: #### 2 4321-2 ####[facility] LABCLIA [id number] [id number], [place] [address] [place] Calcium [Mass/Vol] 9.3 mg/dL Normal 8.5-10.2 [facility] Comment on above: Order Comment: Speci men Type: BLOOD SPECIMENOrdering Facility: [facility] Address: [address] [place] [address] Performed By: #### 2 4321-2 ####[facility] LABCLIA [id number] [place] [address] [place] Chloride [Moles/Vol] 99 mmol/L Normal 98-107 [facility] Comment on above: Order Comment: Speci men Type: BLOOD SPECIMENOrdering Facility: [facility] Address: [address] [place] [address] Performed By: #### 2 4321-2 ####[facility] LABCLIA [id number] [place] [address] [place] CO2 [Moles/Vol] 31 mmol/L High 22-30 [facility] Comment on above: Order Comment: Speci men Type: BLOOD SPECIMENOrdering Facility: [facility] Address: [address] [place] [address] Performed By: #### 2 4321-2 ####[facility] LABCLIA [id number] [place] [address] [place] Creatinine [Mass/Vol] 0.74 mg/dL Normal 0.58-0.96 [facility] Comment on above: Order Comment: Speci men Type: BLOOD SPECIMENOrdering Facility: [facility] Address: [address] [place] [address] Performed By: #### 2 4321-2 ####[facility] LABCLIA [id number] [place] [address] [place] Creatinine and Glomerular filtration rate.predicted panel (S/P/Bld) 88 mL/min/1.73m??? Normal >=60 [facility] Comment on above: Order Comment: Speci men Type: BLOOD SPECIMENOrdering Facility: [facility] Address: [address] [place] [address] Result Comment: Martha mated Glomerular Filtration Rate (eGFR) is calculated using the 2020 CKD-EPI creatinine equation. This equation utilizes serum creatinine, sex, and age as parameters. The creatinine assay has traceable calibration to isotope dilution-mass spectrometry. Refer to KDIGO guidelines for clinical interpretation. In patients with unstable renal function, e.g. those with acute kidney injury, the eGFR may not accurately reflect actual GFR. Performed By: #### 2 4321-2 ####[facility] LABCLIA [id number] [place] [address] [place] Glucose [Mass/Vol] 90 mg/dL Normal 74-99 [facility] Comment on above: Order Comment: Speci men Type: BLOOD SPECIMENOrdering Facility: [facility] Address: [address] [place] [address] Result Comment: The [place] Diabetes Association (ADA) provides guidance for cutoff values for fasting glucose and random glucose. The ADA defines fasting as no caloric intake for at least 8 hours. Fasting plasma glucose results between 100 to 125 mg/dL indicate increased risk for diabetes (prediabetes). Fasting plasma glucose results greater than or equal to 126 mg/dL meet the criteria for diagnosis of diabetes. In the absence of unequivocal hyperglycemia, results should be confirmed by repeat testing. In a patient with classic symptoms of hyperglycemia or hyperglycemic crisis, random plasma glucose results greater than or equal to 200 mg/dL meet the criteria for diagnosis of diabetes. Reference: Standards of Medical Care in Diabetes 2016, [place] Diabetes Association. Diabetes Care. 2016.39(Suppl 1). Performed By: #### 2 4321-2 ####[facility] LABCLIA [id number] [place] [address] [place] Potassium [Moles/Vol] 4.5 mmol/L Normal 3.7-5.1 [facility] Comment on above: Order Comment: Speci men Type: BLOOD SPECIMENOrdering Facility: [facility] Address: [address] [place] [address] Performed By: #### 2 4321-2 ####[facility] LABCLIA [id number] [place] [address] [place] Sodium [Moles/Vol] 138 mmol/L Normal 136-144 [facility] Comment on above: Order Comment: Speci men Type: BLOOD SPECIMENOrdering Facility: [facility] Address: [address] [place] [address] Performed By: #### 2 4321-2 ####[facility] LABIA [id number] [place] [address] [place] Urea nitrogen [Mass/Vol] 6 mg/dL Low 7-21 [facility] Comment on above: Order Comment: Speci men Type: BLOOD SPECIMENOrdering Facility: [facility] Address: [address] [place] [address] Performed By: #### 2 4321-2 ####[facility] [id number] [place] [address] [place] CBC panel Auto (Bld)on 02-14 Erythrocyte distribution width (RBC) [Ratio] 12.1 % 11.5 - 15.0 % [facility] Hematocrit (Bld) [Volume fraction] 48.2 % High 36.0 - 46.0 % [facility] Hemoglobin (Bld) [Mass/Vol] 15.5 g/dL 11.5 - 15.5 g/dL [facility] Interpretation and review of laboratory results Abnormal [facility] MCH (RBC) [Entitic mass] 30.6 pg 26.0 - 34.0 pg [facility] MCHC (RBC) [Mass/Vol] 32.2 g/dL 30.5 - 36.0 g/dL [facility] MCV (RBC) [Entitic vol] 95.3 fL 80.0 - 100.0 fL [facility] Nucleated RBC (Bld) [#/Vol] NINF [facility] Platelet mean volume (Bld) [Entitic vol] 9.3 fL 9.0 - 12.7 fL [facility] Platelets (Bld) [#/Vol] 200 10*3/uL [facility] RBC (Bld) [#/Vol] 5.06 10*6/uL 3.90 - 5.2 0 m/uL [facility] WBC (Bld) [#/Vol] 5.93 10*3/uL [facility] Erythrocyte distribution width (RBC) [Ratio] 12.1 % Normal 11.5-15.0 [facility] Comment on above: Order Comment: Speci men Type: BLOOD SPECIMENOrdering Facility: [facility] Address: [address] [place] [address] Performed By: #### 5 8410-2 ####[facility] LABIA [id number] [place] [address] [place] Hematocrit (Bld) [Volume fraction] 48.2 % High 36.0-46.0 [facility] Comment on above: Order Comment: Speci men Type: BLOOD SPECIMENOrdering Facility: [facility] Address: [address] [place] [address] Performed By: #### 5 8410-2 ####[facility] LABIA [id number] [place] [address] [place] Hemoglobin (Bld) [Mass/Vol] 15.5 g/dL Normal 11.5-15.5 [facility] Comment on above: Order Comment: Speci men Type: BLOOD SPECIMENOrdering Facility: [facility] Address: [address] [place] [address] Performed By: #### 5 8410-2 ####[facility] LABIA [id number] [place] [address] [place] MCH (RBC) [Entitic mass] 30.6 pg Normal 26.0-34.0 [facility] Comment on above: Order Comment: Speci men Type: BLOOD SPECIMENOrdering Facility: [facility] Address: [address] [place] [address] Performed By: #### 5 8410-2 ####[facility] LABIA [id number] [place] [address] [place] MCHC (RBC) [Mass/Vol] 32.2 g/dL Normal 30.5-36.0 [facility] Comment on above: Order Comment: Speci men Type: BLOOD SPECIMENOrdering Facility: [facility] Address: [address] [place] [address] Performed By: #### 5 8410-2 ####[facility] LABIA [id number] [place] [address] [place] MCV (RBC) [Entitic vol] 95.3 fL Normal 80.0-100.0 [facility] Comment on above: Order Comment: Speci men Type: BLOOD SPECIMENOrdering Facility: [facility] Address: [address] [place] [address] Performed By: #### 5 8410-2 ####[facility] LABIA [id number] [place] [address] [place] Nucleated RBC (Bld) [#/Vol] 10*3/uL Normal <0.01 [facility] Comment on above: Order Comment: Speci men Type: BLOOD SPECIMENOrdering Facility: [facility] Address: [address] [place] [address] Performed By: #### 5 8410-2 ####[facility] LABIA [id number] [place] [address] [place] Platelet mean volume (Bld) [Entitic vol] 9.3 fL Normal 9.0-12.7 [facility] Comment on above: Order Comment: Speci men Type: BLOOD SPECIMENOrdering Facility: [facility] Address: [address] [place] [address] Performed By: #### 5 8410-2 ####[facility] LABIA [id number] [place] [address] [place] Platelets (Bld) [#/Vol] 200 10*3/uL Normal 150-400 [facility] Comment on above: Order Comment: Speci men Type: BLOOD SPECIMENOrdering Facility: [facility] Address: [address] [place] [address] Performed By: #### 5 8410-2 ####[facility] LABIA [id number] [place] [address] [place] RBC (Bld) [#/Vol] 5.06 10*6/uL Normal 3.90-5.20 [facility] Comment on above: Order Comment: Speci men Type: BLOOD SPECIMENOrdering Facility: [facility] Address: [address] [place] [address] Performed By: #### 5 8410-2 ####[facility] LABIA [id number] [place] [id number] [place] WBC (Bld) [#/Vol] 5.93 10*3/uL Normal 3.70-11.00 [facility] Comment on above: Order Comment: Speci men Type: BLOOD SPECIMENOrdering Facility: [facility] Address: [address] [place] [address] Performed By: #### 5 8410-2 ####[facility] [id number] [address] [place] CNOVon 02-14-2025 CNOV Office Visit (INTMWS ) HENNY DAMIAN ([id number]) 1955 F Date Time Provider Department 02/14/25 2:20 PM KATE CERVANTES INTMWS During your visit today, we recorded the following information about you: Pulse Respiration Blood pressure Weight 64/minute 16/minute 120/78 71.2 kg Kate Cervantes APRN.CNP 02/15/2025 7:42 AM Signed CC: Patient presents with: Recheck: 6 month follow up HPI Henny Damian is a 69 year old female who presents today for routine follow up. Recording using [employer] software for draft documentation of the visit was discussed with the patient/authorized senior patient account representative; all questions welcomed and answered. Patient/authorized senior patient account representative agreed to proceed Atrial Fibrillation: - Well-controlled; denies palpitations, chest pain, or dyspnea. - Taking Eliquis and metoprolol. - Last seen by [facility] several months ago; needs to schedule a follow-up. CAD and HLD: - Noted slightly low blood pressure readings over the past two months at Dr. Arreola's office but at goal in office. - Denies dizziness or syncope chest pain, SOB, edema, or headaches. - Does not monitor blood pressure at home. - Adheres to a low-fat, low-salt diet. Depression and Insomnia: - Well-controlled with sertraline 50 mg daily and trazodone at bedtime. - No suicidal ideation or major stressors; reports good sleep quality. - Denies alcohol or drug use. GERD: - Well-controlled with pantoprazole. - Denies heartburn, dysphagia, nausea, or abdominal pain. Restless Leg Syndrome: - Has not been taking iron supplements due to constipation. - Denies increased restlessness in legs at night. - Consumes iron-fortified foods like bread and cereal. Pre-Diabetes: - diet controlled - Denies increased thirst, hunger, or urination. - No new numbness or symptoms of hypoglycemia. Chronic Pain: - Managed with gabapentin and Shelby prescribed by Dr. Arreola. - Engages in daily stretching and frequent stair climbing. Tobacco Use: - Smokes 14-15 cigarettes per day. - Reports a cough, especially at night. - denies SOB, wheezing, fever, chills, or exercise intolerance. REVIEW OF SYSTEMS See HPI PAST MEDICAL HISTORY Diagnosis Date Arthritis Atrial fibrillation (HCC) had stent placement Coronary artery disease COVID-19 05/2022 Depression GERD (gastroesophageal reflux disease) Hayfever Hemorrhoid History of transfusion PAST SURGICAL HISTORY Procedure Laterality Date ABDOMINAL SURGERY HX , CLASSIC, ANTE/POST CA 1994 COLONOSCOPY 09/11/2022 repeat in 10 years COLONOSCOPY FLX DX W/COLLJ SPEC WHEN PFRMD 12/19/2018 Colonoscopy COLSC FLX W/RMVL OF TUMOR POLYP LESION SNARE TQ 06/24/2009 polyp at 25cm EGD 09/11/2022 ESOPHAGOGASTRODUODENOSC OPY TRANSORAL DIAGNOSTIC 12/19/2018 EGD HEMORRHOIDECTOMY INT AND XTRNL 2/> COLUMN/JULIENNE 03/06/2010 HERNIA REPAIR HX PAST SURGICAL HISTORY OF Late Hernia repair PAST SURGICAL HISTORY OF 2011 polyp vocal cord STENT PLACEMENT Left 05/14/2020 [facility]-left circumflex THROAT SURGERY PROCEDURE UNLISTED 12/27/2012 polyp vocal cord TONSILLECTOMY HX TOTAL ABDOMINAL HYSTERECT W/WO RMVL TUBE OVARY 1997 [facility] AND [facility]SO - benign indication (endometrial implants) - 1997 VAGINAL HYSTERECTOMY X-RAY LUMBAR SPINE AP AND LAT 08/28/2015 [facility]-degenerative changes ALLERGIES Doxycycline Hcl MEDICATIONS cholecalciferol (VITAMIN D3) 5,000 unit tab Take 1 tablet by mouth once daily. pantoprazole DR (PROTONIX) 40 mg tablet Take 1 tablet by mouth two times a day. pravastatin (PRAVACHOL) 20 mg tablet Take 1 tablet by mouth once daily. traZODone (DESYREL) 150 mg tablet Take 1 tablet by mouth daily at bedtime. sertraline (ZOLOFT) 50 mg tablet Take 1 tablet by mouth once daily. tiZANidine HCl (ZANAFLEX) 4 mg capsule EVERY 8 HOURS HYDROcodone-acetaminoph en (NORCO) 5-325 mg per tablet Take 1 tablet by mouth two times a day. cyanocobalamin (VITAMIN B-12) 1,000 mcg tab Take 1 tablet by mouth once daily. ascorbic acid, vitamin C, (VITAMIN C) 500 mg tablet Take 1 tablet by mouth once daily. apixaban (ELIQUIS) 5 mg tab(s) Take 5 mg by mouth twice daily. gabapentin (NEURONTIN) 100 mg capsule Take 100 mg by mouth twice daily. folic acid/multivit-min/lutei n (CENTRUM SILVER ORAL) Take by mouth once daily. metoprolol succinate ER (TOPROL XL) 50 mg 24 hr tablet Take 50 mg by mouth once daily. BIOTIN ORAL Take 1 tablet by mouth once daily. 500 mg FAMILY HISTORY Problem Relation Age of Onset Diabetes Mother other (NE) Mother other (NE) Father COPD Sister Emphysema Sister No Known Problems Brother No Known Problems Maternal Grandmother No Known Problems Maternal Grandfather No Known Problems Paternal Grandmother No Known Problems Paternal Grandfather No Known Problems Daughter Social History Tobacco Use Smoking st (more content not included)... Normal [facility] HbA1c (Bld)on 02-14-2025 Average glucose Estimated from glycated hemoglobin (Bld) [Mass/Vol] 114 mg/dL Normal [facility] Comment on above: Order Comment: Speci men Type: BLOOD SPECIMENOrdering Facility: [facility] Address: [address] [place] [address] Result Comment: eAG: (Estimated average glucose) is a calculated value from HgbA1c and is senior patient account representative of the average blood glucose level in the last 2-3 month period. Performed By: #### 5 5454-3 ####[facility] LABCLIA [id number] [place] [address] [place] HbA1c (Bld) [Mass fraction] 5.6 % Normal 4.3-5.6 [facility] Comment on above: Order Comment: Speci men Type: BLOOD SPECIMENOrdering Facility: [facility] Address: [address] [place] [address] Result Comment: [place] Diabetes Association guidelines indicate that patients with HgbA1c in the range 5.7-6.4% are at increased risk for development of diabetes, and intervention by lifestyle modification may be beneficial. HgbA1c greater or equal to 6.5% is considered diagnostic of diabetes. Performed By: #### 5 5454-3 ####[facility] LABCLIA [id number] [address] [place] HIP, UNI W/ Pelvis 2-3 Views on 01-15-2025 HIP, UNI W/ Pelvis 2-3 Views [facility] [address] [place] [address] HIP, UNI W/ Pelvis 2-3 Views MR#: [id number] Acct: [id number] Name: HENNY DAMIAN Rep #: [id number] : 1955 F 69 From: Kenny Paris i, DO PCP: Dr. Brook Horner MD Status: DEP AMB Study: HIP, UNI W/ Pelvis 2-3 Views Date of Exam: 05/04 Exam# [id number] Ordering Dr: Cesar Justice DO PROCEDURE: Pelvis and right hip radiographs, three views 01/15/2025 REASON FOR EXAM: Nontraumatic right hip pain TECHNIQUE: Three views of the pelvis and right hip were obtained. COMPARISON: None available FINDINGS: Three views of the pelvis and right hip were obtained. Bones are osteopenic. Zvin-qv-paemzdxd degenerative changes in the lower lumbar spine. SI joints are intact. No displaced pelvic or proximal femur fracture. Mild degenerative change left hip joint. Moderate degenerative change of the right hip joint. There is an overhanging margins/osteophyte of the superolateral right acetabulum. No acute fracture or dislocation of the right hip. RAD/HIP, UNI W/ Pelvis 2-3 Views IMPRESSION: Osteopenia. No acute bony abnormality of the pelvis/right hip. Moderate degenerative change right hip joint. Overhanging margins/osteophytes superior lateral margin of the right acetabulum, which can predispose to pincer type femoral acetabular impingement. Reading Location: [facility] CC: Dr. Brook Horner MD; Dr. Cesar Justice DO Remote Medical Coder: Signed Normal [facility] Knee 4 or More Viewson 01-15 Knee 4 or More Views [facility] [address] [place] [address] Knee 4 or More Views MR#: [id number] Acct: [id number] Name: HENNY DAMIAN Rep #: [id number] : 1955 F 69 From: Kenny Paris i, DO PCP: Dr. Brook Horner MD Status: DEP AMB Study: Knee 4 or More Views Date of Exam: 01/15/25 Exam# [id number] Ordering Dr: Cesar Justice DO PROCEDURE: Right knee radiographs, four views 01/15/2025 REASON FOR EXAM: Right knee pain TECHNIQUE: Four views of the right knee were obtained. COMPARISON: None available FINDINGS: Four views of the right knee were obtained. Bones are osteopenic. No acute fracture or dislocation of the right knee. Mild/moderate tricompartmental degenerative changes of the right knee, greatest involving the medial compartment. No sizeable joint effusion. RAD/Knee 4 or More Views IMPRESSION: Osteopenia. No acute bony abnormality of the right knee. Mild/moderate tricompartmental degenerative changes of the right knee, greatest involving the medial compartment. No sizable joint effusion. Reading Location: [facility] CC: Dr. Brook Horner MD; Dr. Cesar Justice DO Remote Medical Coder: Signed Normal [facility] Knee 4 or More Views [facility] [address] [place] [address] Knee 4 or More Views MR#: [id number] Acct: [id number] Name: HENNY DAMIAN Rep #: [id number] : 1955 F 69 From: Kenny Paris i, DO PCP: Dr. Brook Horner MD Status: DEP AMB Study: Knee 4 or More Views Date of Exam: 01/15/25 Exam# [id number] Ordering Dr: Cesar Justice DO PROCEDURE: Left knee radiographs, four views 01/15/2025 REASON FOR EXAM: Nontraumatic left knee pain TECHNIQUE: Four views of the left knee were obtained. COMPARISON: None available FINDINGS: Four views of the left knee were obtained. Bones are mildly osteopenic. No acute fracture or dislocation of the left knee. Minimal tricompartmental degenerative changes of the left knee. No sizeable joint effusion. RAD/Knee 4 or More Views IMPRESSION: Mild osteopenia. No acute bony abnormality of the left knee. Minimal tricompartmental degenerative changes, without sizable effusion. Reading Location: [facility] CC: Dr. Brook Horner MD; Dr. Cesar Justice DO Remote Medical Coder: Signed Normal [facility] Orthopedic Visit Reporton Orthopedic Visit Report [facility] [address] [place] [address] [address] [place] [id number] OFFICE VISIT Date of Service: 01/15/25 MR#: [id number] Acct: [id number] Name: HENNY DAMIAN Rep #: [id number] : 1955 Provider: Dr. Cesar lujan, Age/Sex: 69/F Location: [facility] Status: Signed Intake Vital Signs 05/11/23 15:17 01/15/25 15:07 Height 5 ft 3 in 5 ft 3 in Weight: 157 lb 8 oz BMI 27.8 Intake Visit Reasons: BL KNEES Chief Complaint: BL knee pain Accompanied by: Self Is patient in pain?: Yes Pain scale (1-10): 4 Allergies doxycycline Adverse Reaction (Unknown, Verified 01/15/25 15:10) Unknown Medications ???Medication ???Instructions ???Recorded ???Confirmed ???Type trazodone 100 mg tablet 150 mg PO QHS sleep 12/13/1801/15 History pantoprazole 40 mg tablet,delayed 40 mg PO DAILY reflux 09/22/19 History release sertraline 50 mg tablet 50 mg PO DAILY depression 09/22/19 01/15/25 History hydrocodone-acetaminoph en 5-325mg 0.5 tab PO BID pain 11/24/1905/04 History 5mg-325mg tizanidine 4 mg capsule 4 mg PO Q8 PRN muscle spasms 11/2401/15/25 History aspirin 81 mg tablet,delayed 81 mg PO DAILY@0800 05/15/2001/15 Rx release cholecalciferol (vitamin D3) 125 125 mcg PO DAILY 07/19/20 01/15/25 History mcg (5,000 unit) capsule biotin 500 mcg capsule 500 mg PO DAILY supplement 2 01/15/25 History gabapentin 100 mg capsule 100 mg PO BID sciatica 04/04/23 History ferrous sulfate 325 mg (65 mg 325 mg PO .3xweek anemia 05/11/23 01/15/25 History iron) tablet apixaban 5 mg tablet (Eliquis) 5 mg PO BID #180 tabs 08/02/2405/04 Rx metoprolol succinate 50 mg See Rx Instructions .Route 4 01/15/25 Rx tablet,extended release 24 hr .COMPLEX #90 TABLETS pravastatin 20 mg tablet 20 mg PO QHS cholesterol #90 tabs 09/26/24 01/15/25 Rx ascorbate calcium (vitamin C) 500 500 mg PO QDAY 01/15/25 01/15/25 History mg tablet mecobalamin (vitamin B12) 1,000 1,000 mcg PO QDAY 01/15/25 5 History mcg lozenges Have you fallen in the past year?: Yes [facility] Medical History (Updated 01/15/25 @ 16:[address] Cesar Justice, ) Paroxysmal atrial fibrillation Presence of stent in coronary artery ( 05/14/20) Atherosclerotic heart disease of [place] coronary artery without angina pectoris History of chronic pain Tobacco abuse Mixed hyperlipidemia Polyp, vocal cord GERD (gastroesophageal reflux disease) Depression Atrial fibrillation Surgical History Presence of coronary angioplasty implant and graft ( 05/14/20) History of total hysterectomy History of hernia repair History of hemorrhoidectomy History of section Family History Mother Diabetes Myocardial infarction CAD (coronary artery disease) Father Myocardial infarction CAD (coronary artery disease) Sister COPD (chronic obstructive pulmonary disease) Social History Smoking Status: Current every day smoker tobacco type: cigarettes alcohol intake: current alcohol intake frequency: holidays/special occasions only substance use type: marijuana caffeine: Yes Type: carbonated beverages Number of servings: 3 and coffee Number of servings: 3 HPI BL KNEES Details: This documentation accurately reflects the service provided and the decisions made by me, Dr. Cesar Justice, 01/15/25 0829. Part of today???s visit was documented by Mulu Ordaz MA, acting as scribe. HENNY DAMIAN is a 69 year old F with medical history significant for but not limited to paroxysmal atrial fibrillation on Plavix and aspirin and Eliquis 5 mg twice daily, atherosclerotic heart disease, GERD, on Shelby 02/10/2025, gabapentin 100 mg twice daily, trazodone, tizanidine here today for bl knee pain. Referral from Dr. Arreola. Has been having pain for 8 to 9 weeks without injury or inciting event. She is not having pain in her left knee but wanted to have it checked out because of a bump on the back of her knee which she was told was a Damon's cyst. Right knee does cause her pain she does complain of right knee swelling. She does suffer with chronic sciatica . She does complains of radiating pain into the groin on the right. She admits to popping that is not painful. Denies numbness or tingling. No prior x-rays or MRIs. No prior surgery or injection. She has not had any treatment on her knees Ortho Exam General General: Yes no acute distress Neurologic: Yes alert and Yes oriented x3 Psychologic: Yes reasonable and appropriate Right Knee Skin/Wound: Yes CDI, No erythema, No ecchymosis and No swellin (more content not included)... Normal [facility] [id number] 12-12-2024 [facility] Misc. COMMENT Normal . [facility] Comment on above: Order Comment: [id number] 3 URINE TOX Result Comment: Test Ordered: [id number] 6+Oxycodone-Bund Amphetamines, Urine Negative ng/mL UI Reference Range: Llzdtx=9213 Amphetamine test includes Amphetamine and Methamphetamine. Barbiturate Negative ng/mL UI Reference Range: Kmaobi=604 Benzodiazepines Negative ng/mL UI Reference Range: Tjsfaw=884 Cannabinoids Note: ng/mL UI See Final Results Reference Range: Cutoff=20 Cannabinoid Negative UI Reference Range: Cutoff=20 Cocaine (Metabolite) Negative ng/mL UI Reference Range: Jnaqmv=613 Opiates Note: ng/mL UI See Final Results Reference Range: Bapysa=493 Opiate test includes Codeine, Morphine, Hydromorphone, Hydrocodone. Opiates Positive [A ] ng/mL UI Reference Range: Vmegvr=505 Opiate test includes Codeine, Morphine, Hydromorphone, Hydrocodone. Confirmation performed by Mass Spectrometry Codeine Negative UI Reference Range: Zimftk=032 Morphine Negative UI Reference Range: Yicjot=446 Hydromorphone Positive [A ] UI Reference Range: . Hydromorphone Conf, MS, UR 403 ng/mL UI Reference Range: Iiqoux=691 Hydrocodone Positive [A ] UI Reference Range: . Hydrocodone Conf, MS, UR 1559 ng/mL UI Reference Range: Jhyoos=027 Oxycodone/Oxymorphone, Urine Negative ng/mL Reference Range: Fwrvzv=125 Test includes Oxycodone and Oxymorphone Effective January 08, 2025, this test will be discontinued. Please contact your [facility] senior patient account representative for suggested replacement test options. [facility]formed at: [id number] [place], [place] [id number] After School Driver: Sugar Rios PhD, Phone: [phone] Performed at: - [address] [id number] After School Driver: Bharat Hinojosa PhD, Phone: [phone] Performed By: #### L 3410.9998, L505.5000 #### [facility] [address] [place], [address] Amphetamines Screen method > 1000 ng/mL Ql (U)Ordered By: Simone Arreola on 12-06-2024 Amphetamines Ql (U) Negative <1000 ng/mL [facility] Urine Barbiturates Screen Negative < 200 ng/mL [facility] Methadone, urineOrdered By: Simone Arreola on 12-06-2024 Urine Methadone Screen Negative < 300 ng/mL [facility] No Panel InformationOrdered By: Simone Arreola on 12-06-2024 Urine Buprenorphine Qualitative Negative < 200 ng/mL [facility] Urine Oxycodone Screen Negative < 100 ng/mL [facility] Quantitative urine opiates m easurementOrdered By: Simone Arreola on 12-06-2024 Opiates Ql (U) Positive < 300 ng/mL [facility] Comment on above: If confirmation test ing is needed, a separate order will be required to send out testing to the reference laboratory. Urine Drug Screen (VISTA)on 12-06-2024 AMPHETAMINES Negative Normal <1000 ng/mL [facility] Comment on above: Order Comment: RUN L OWEST TEST UNK Performed By: #### L 3410.9998, L505.5000 #### [facility] [address] [place], [address] BARBITIURATES Negative Normal < 200 ng/mL [facility] Comment on above: Order Comment: RUN L OWEST TEST UNK Performed By: #### L 3410.9998, L505.5000 #### [facility] [address] [facility] [address] BENZODIAZIPINE Negative Normal < 200 ng/mL [facility] Comment on above: Order Comment: RUN L OWEST TEST UNK Performed By: #### L 3410.9998, L505.5000 #### [facility] [address] [facility] [address] BUP Ur Drug Scr Negative Normal < 200 ng/mL [facility] Comment on above: Order Comment: RUN L OWEST TEST UNK Performed By: #### L 3410.9998, L505.5000 #### [facility] [address] [facility] [address] COCAINE Negative Normal < 300 ng/mL [facility] Comment on above: Order Comment: RUN L OWEST TEST UNK Performed By: #### L 3410.9998, L505.5000 #### [facility] [address] [facility] [address] Fentanyl Negative Normal [facility] Comment on above: Order Comment: RUN L OWEST TEST UNK Performed By: #### L 3410.9998, L505.5000 #### [facility] [address] [facility] [address] METHADONE Negative Normal < 300 ng/mL [facility] Comment on above: Order Comment: RUN L OWEST TEST UNK Performed By: #### L 3410.9998, L505.5000 #### [facility] [address] [facility] [address] OPIATES Positive Normal < 300 ng/mL [facility] Comment on above: Order Comment: RUN L OWEST TEST UNK Result Comment: If c onfirmation testing is needed, a separate order will be required to send out testing to the reference laboratory. Performed By: #### L 3410.9998, L505.5000 #### [facility] [address] [place], [address] OXYCODONE Negative Normal < 100 ng/mL [facility] Comment on above: Order Comment: RUN L OWEST TEST UNK Performed By: #### L 3410.9998, L505.5000 #### [facility] [address] [place], [address] PCP Negative Normal < 25 ng/mL [facility] Comment on above: Order Comment: RUN L OWEST TEST UNK Performed By: #### L 3410.9998, L505.5000 #### [facility] [address] [place], [address] THC Positive Normal < 50 ng/mL [facility] Comment on above: Order Comment: RUN L OWEST TEST UNK Result Comment: If c onfirmation testing is needed, a separate order will be required to send out testing to the reference laboratory. Performed By: #### L 3410.9998, L505.5000 #### [facility] [address] [place], [address] Urine benzodiazepine levelOr dered By: Simone Arreola on 12-06-2024 Benzodiazepines Ql (U) Negative < 200 ng/mL [facility] Urine cocaine levelOrdered B y: Simone Arreola on 12-06-2024 Cocaine Ql (U) Negative < 300 ng/mL [facility] Urine ehseh-6-sinlexnozkmquc abinol (THC) measurementOrdered By: Simone Arreola on 12-06-2024 Cannabinoids Screen Ql (U) Positive < 50 ng/mL [facility] Comment on above: If confirmation test ing is needed, a separate order will be required to send out testing to the reference laboratory. Urine phencyclidine (PCP) de tectionOrdered By: Simone Arreola on 12-06-2024 Phencyclidine Ql (U) Negative < 25 ng/mL [facility] fentaNYL Screen Ql (U)Ordere d By: Simone Arreola on 12-06-2024 Urine Fentanyl Screen Negative [facility] Spine Lumbar (Routine)on Spine Lumbar (Routine) [facility] Services [address] [place], [place] [address] Spine Lumbar (Routine) MR#: [id number] Acct: [id number] Name: HENNY DAMIAN Rep #: [id number] : [id number] F [id number] From: Rom Woodard MD PCP: Dr. Brook Horner MD Status: REG CLI Study: Spine Lumbar (Routine) Date of Exam: 10/23/24 Exam# [id number] Ordering Dr: [place] [id number] EXAM: MR LUMBAR SPINE WITHOUT INTRAVENOUS CONTRAST CLINICAL INDICATION: RADICULOPATHY, C/O LOWER BACK PAIN RADIATING INTO LEGS BILATERALLY TECHNIQUE: Multiplanar and multisequence MR images of the lumbar spine without intravenous contrast. COMPARISON: No relevant prior studies available. FINDINGS: VERTEBRAE: Normal alignment of the lumbar vertebral bodies. Normal vertebral body height. No bone marrow edema. SPINAL CORD: Normal. Normal position and signal intensity of the conus medullaris. SOFT TISSUES: Normal. DISCS/SPINAL CANAL/NEURAL FORAMINA: L1-L2: Normal disc height and morphology. Normal spinal canal and lateral recesses. Normal neuroforamina. L2-L3: L2-3: Moderate disc space narrowing. Mild disc bulging causes mild spinal stenosis. No significant narrowing of the neural foramina. L3-L4: L3-4: Moderate disc space narrowing. Broad-based disc protrusion, ligamentous hypertrophy and facet arthropathy results in mild to moderate spinal stenosis and mild right and moderate left foraminal narrowing. L4-L5: L4-5: Mild disc space narrowing. There is minimal anterior listhesis of L4 on L5. Mild disc bulging, ligamentous hypertrophy and facet arthropathy cause mild neural foraminal stenosis. No significant spinal stenosis. L5-S1: No significant disc space narrowing. Mild disc protrusion and annular fissure noted. No spinal stenosis. Facet arthropathy and the disc bulging contribute to moderate bilateral neural foraminal narrowing. MRI/Spine Lumbar (Routine) IMPRESSION: 1. Multilevel disc degeneration and facet arthropathy. 2. Mild to moderate spinal stenosis at L3-4. 3. Multilevel neural foraminal narrowing as described above. Electronically Signed: Rom Woodard MD at 17:05 EST , CC: Dr. Simone Arreola MD; Dr. Brook Horner MD Remote Medical Coder: Signed Normal [facility] BD DXA - AXIAL SKELETONon BD DXA - AXIAL SKELETON * * *Final Report* * * DATE OF EXAM: Oct 09 2024 2:47PM WR[facility] 0804 - BD DXA - AXIAL SKELETON / PROCEDURE REASON: Encounter for screening for osteoporosis * * * * Physician Interpretation * * * * EXAMINATION: DXA BONE DENSITOMETRY BD DXA - AXIAL SKELETON, BD DXA TRABECLR BONE SCORE (TBS) PATIENT DEMOGRAPHICS: Age: 68 years, Gender: Female SCANNER INFORMATION: DXA Model: [facility] [place] [employer] Discovery C [id number] Date Scanned: 10/09/2024 2:47 PM CLINICAL HISTORY: DIAGNOSTIC Encounter for screening for osteoporosis . RISK FACTORS FOR OSTEOPOROSIS AND ASSOCIATED FRACTURES REPORTED BY THIS PATIENT: Please refer to Bone Health Questionnaire in the EMR CURRENT THERAPY: Please refer to Bone Health Questionnaire in the EMR TECHNICAL LIMITATIONS: Degenerative disease of the spine RESULTS: Lumbar spine (L1, L2, L3, L4): 1.031 g/cm2, T-score -0.1, Z-score 1.9 Lumbar spine: 2020: 1.098 g/cm2 Statistically significant decrease Right Femoral Neck: 0.775 g/cm2, T-score -0.7, Z-score 1.1 Right Femoral Neck: 2020: 0.804 g/cm2 No statistically significant change Right Total Hip: 0.929 g/cm2, T-score -0.1, Z-score 1.3 Right Total Hip: 2020: 0.972 g/cm2 Statistically significant decrease Left Femoral Neck: 0.753 g/cm2, T-score -0.9, Z-score 0.9 Left Femoral Neck: 2020: 0.751 g/cm2 No statistically significant change Left Total Hip: 0.931 g/cm2, T-score -0.1, Z-score 1.4 Left Total Hip: 2020: 0.954 g/cm2 No statistically significant change CHANGE IS STATISTICALLY SIGNIFICANT IN THE SPINE OR HIP IF GREATER THAN OR EQUAL TO 0.04 g/cm2 VERTEBRAL FRACTURE ASSESSMENT Not performed. TRABECULAR BONE ASSESSMENT TBS score: 1.173 Bone micro-architecture: Degraded (< or = 1.230) IMPRESSION: THE LOWEST T-SCORE IS -0.9 IN THE LEFT HIP 1) DIAGNOSIS (based on BMD alone): NORMAL BONE DENSITY Caution: Medical conditions other than osteoporosis may cause low bone density, such as osteomalacia or renal osteodystrophy. Clinical correlation is necessary. 2) FRACTURE RISK (Based on TBS adjusted FRAX): 10-year absolute fracture risk: - major osteoporotic fracture = 9.9 % - hip fracture = 1.4 % - A diagnosis of Osteoporosis, a 10 year probability of hip fracture greater than or equal to 3% or a 10 year probability of any major osteoporosis-related fracture greater than or equal to 20% should be considered for treatment. - DXA scanner generated FRAX calculations may slightly differ from online FRAX calculations due to differences in software versions. - All recommendations and calculations are to be considered as guidelines and should not replace sound clinical judgement - Caution: Fracture risk may be increased independent of BMD in patients with corticosteroid use, age greater than 65 years, or a history of prior fragility fracture. RECOMMENDATIONS: Follow-up in 2 years or as clinically indicated. Patients that are taking corticosteroids, are transplant recipients or have hyperparathyroidism should have annual follow-up. Follow-up scans should always be done on the same machine for accurate comparison. FOR MORE INFORMATION ABOUT DIAGNOSIS AND TREATMENT: [facility] for Osteoporosis and Metabolic Bone Disease:? www.ccf.org/arthritis/o steo National Osteoporosis Foundation:? www.nof.org International Society of Clinical Densitometry www.iscd.org Remote Medical Coder: YUE Transcribe Date/Time: Oct 09 2024 3:52P Dictated by : JACKIE PÉREZ MD This examination was interpreted and the report reviewed and electronically signed by: JACKIE PÉREZ MD on Oct 09 2024 3:54PM EST [id number] -[id number] Normal [facility] BD DXA TRABECLR BONE SCORE ( TBS)on 10-09-2024 BD DXA TRABECLR BONE SCORE (TBS) * * *Final Report* * * DATE OF EXAM: Oct 09 2024 2:47PM [facility] 0801 - BD DXA TRABECLR BONE SCORE (TBS) / PROCEDURE REASON: Encounter for screening for osteoporosis * * * * Physician Interpretation * * * * EXAMINATION: DXA BONE DENSITOMETRY BD DXA - AXIAL SKELETON, BD DXA TRABECLR BONE SCORE (TBS) PATIENT DEMOGRAPHICS: Age: 68 years, Gender: Female SCANNER INFORMATION: DXA Model: [employer] - [employer] C [id number] Date Scanned: 10/09/2024 2:47 PM CLINICAL HISTORY: DIAGNOSTIC Encounter for screening for osteoporosis . RISK FACTORS FOR OSTEOPOROSIS AND ASSOCIATED FRACTURES REPORTED BY THIS PATIENT: Please refer to Bone Health Questionnaire in the EMR CURRENT THERAPY: Please refer to Bone Health Questionnaire in the EMR TECHNICAL LIMITATIONS: Degenerative disease of the spine RESULTS: Lumbar spine (L1, L2, L3, L4): 1.031 g/cm2, T-score -0.1, Z-score 1.9 Lumbar spine: 2020: 1.098 g/cm2 Statistically significant decrease Right Femoral Neck: 0.775 g/cm2, T-score -0.7, Z-score 1.1 Right Femoral Neck: 2020: 0.804 g/cm2 No statistically significant change Right Total Hip: 0.929 g/cm2, T-score -0.1, Z-score 1.3 Right Total Hip: 2020: 0.972 g/cm2 Statistically significant decrease Left Femoral Neck: 0.753 g/cm2, T-score -0.9, Z-score 0.9 Left Femoral Neck: 2020: 0.751 g/cm2 No statistically significant change Left Total Hip: 0.931 g/cm2, T-score -0.1, Z-score 1.4 Left Total Hip: 2020: 0.954 g/cm2 No statistically significant change CHANGE IS STATISTICALLY SIGNIFICANT IN THE SPINE OR HIP IF GREATER THAN OR EQUAL TO 0.04 g/cm2 VERTEBRAL FRACTURE ASSESSMENT Not performed. TRABECULAR BONE ASSESSMENT TBS score: 1.173 Bone micro-architecture: Degraded (< or = 1.230) IMPRESSION: THE LOWEST T-SCORE IS -0.9 IN THE LEFT HIP 1) DIAGNOSIS (based on BMD alone): NORMAL BONE DENSITY Caution: Medical conditions other than osteoporosis may cause low bone density, such as osteomalacia or renal osteodystrophy. Clinical correlation is necessary. 2) FRACTURE RISK (Based on TBS adjusted FRAX): 10-year absolute fracture risk: - major osteoporotic fracture = 9.9 % - hip fracture = 1.4 % - A diagnosis of Osteoporosis, a 10 year probability of hip fracture greater than or equal to 3% or a 10 year probability of any major osteoporosis-related fracture greater than or equal to 20% should be considered for treatment. - DXA scanner generated FRAX calculations may slightly differ from online FRAX calculations due to differences in software versions. - All recommendations and calculations are to be considered as guidelines and should not replace sound clinical judgement - Caution: Fracture risk may be increased independent of BMD in patients with corticosteroid use, age greater than 65 years, or a history of prior fragility fracture. RECOMMENDATIONS: Follow-up in 2 years or as clinically indicated. Patients that are taking corticosteroids, are transplant recipients or have hyperparathyroidism should have annual follow-up. Follow-up scans should always be done on the same machine for accurate comparison. FOR MORE INFORMATION ABOUT DIAGNOSIS AND TREATMENT: [facility] for Osteoporosis and Metabolic Bone Disease:? www.ccf.org/arthritis/o steo National Osteoporosis Foundation:? www.nof.org International Society of Clinical Densitometry www.iscd.org Remote Medical Coder: YUE Transcribe Date/Time: Oct 09 2024 3:52P Dictated by : JACKIE PÉREZ MD This examination was interpreted and the report reviewed and electronically signed by: JACKIE PÉREZ MD on Oct 09 2024 3:54PM EST [id number] -0.9 Normal [facility] DXA Femur [T-score] Bone den felipe 10-09-2024 * * *Final Report* * * DATE OF EXAM: Oct 09 2024 2:47PM [facility] 0801 - BD DXA TRABECLR BONE SCORE (TBS) / PROCEDURE REASON: Encounter for screening for osteoporosis * * * * Physician Interpretation * * * * EXAMINATION: DXA BONE DENSITOMETRY BD DXA - AXIAL SKELETON, BD DXA TRABECLR BONE SCORE (TBS) PATIENT DEMOGRAPHICS: Age: 68 years, Gender: Female SCANNER INFORMATION: DXA Model: [employer] C [id number] Date Scanned: 10/09/2024 2:47 PM CLINICAL HISTORY: DIAGNOSTIC Encounter for screening for osteoporosis . RISK FACTORS FOR OSTEOPOROSIS AND ASSOCIATED FRACTURES REPORTED BY THIS PATIENT: Please refer to Bone Health Questionnaire in the EMR CURRENT THERAPY: Please refer to Bone Health Questionnaire in the EMR TECHNICAL LIMITATIONS: Degenerative disease of the spine RESULTS: Lumbar spine (L1, L2, L3, L4): 1.031 g/cm2, T-score -0.1, Z-score 1.9 Lumbar spine: 2020: 1.098 g/cm2 Statistically significant decrease Right Femoral Neck: 0.775 g/cm2, T-score -0.7, Z-score 1.1 Right Femoral Neck: 2020: 0.804 g/cm2 No statistically significant change Right Total Hip: 0.929 g/cm2, T-score -0.1, Z-score 1.3 Right Total Hip: 2020: 0.972 g/cm2 Statistically significant decrease Left Femoral Neck: 0.753 g/cm2, T-score -0.9, Z-score 0.9 Left Femoral Neck: 2020: 0.751 g/cm2 No statistically significant change Left Total Hip: 0.931 g/cm2, T-score -0.1, Z-score 1.4 Left Total Hip: 2020: 0.954 g/cm2 No statistically significant change CHANGE IS STATISTICALLY SIGNIFICANT IN THE SPINE OR HIP IF GREATER THAN OR EQUAL TO 0.04 g/cm2 VERTEBRAL FRACTURE ASSESSMENT Not performed. TRABECULAR BONE ASSESSMENT TBS score: 1.173 Bone micro-architecture: Degraded (< or = 1.230) DIVISION OF RADIOLOGY Provider, [facility] - 10/09/2024 * * *Final Report* * * DATE OF EXAM: Oct 09 2024 2:47PM [facility] 0801 - BD DXA TRABECLR BONE SCORE (TBS) / PROCEDURE REASON: Encounter for screening for osteoporosis * * * * Physician Interpretation * * * * EXAMINATION: DXA BONE DENSITOMETRY BD DXA - AXIAL SKELETON, BD DXA TRABECLR BONE SCORE (TBS) PATIENT DEMOGRAPHICS: Age: 68 years, Gender: Female SCANNER INFORMATION: DXA Model: [id number] - [employer] C [id number] Date Scanned: 10/09/2024 2:47 PM CLINICAL HISTORY: DIAGNOSTIC Encounter for screening for osteoporosis . RISK FACTORS FOR OSTEOPOROSIS AND ASSOCIATED FRACTURES REPORTED BY THIS PATIENT: Please refer to Bone Health Questionnaire in the EMR CURRENT THERAPY: Please refer to Bone Health Questionnaire in the EMR TECHNICAL LIMITATIONS: Degenerative disease of the spine RESULTS: Lumbar spine (L1, L2, L3, L4): 1.031 g/cm2, T-score -0.1, Z-score 1.9 Lumbar spine: 2020: 1.098 g/cm2 Statistically significant decrease Right Femoral Neck: 0.775 g/cm2, T-score -0.7, Z-score 1.1 Right Femoral Neck: 2020: 0.804 g/cm2 No statistically significant change Right Total Hip: 0.929 g/cm2, T-score -0.1, Z-score 1.3 Right Total Hip: 2020: 0.972 g/cm2 Statistically significant decrease Left Femoral Neck: 0.753 g/cm2, T-score -0.9, Z-score 0.9 Left Femoral Neck: 2020: 0.751 g/cm2 No statistically significant change Left Total Hip: 0.931 g/cm2, T-score -0.1, Z-score 1.4 Left Total Hip: 2020: 0.954 g/cm2 No statistically significant change CHANGE IS STATISTICALLY SIGNIFICANT IN THE SPINE OR HIP IF GREATER THAN OR EQUAL TO 0.04 g/cm2 VERTEBRAL FRACTURE ASSESSMENT Not performed. TRABECULAR BONE ASSESSMENT TBS score: 1.173 Bone micro-architecture: Degraded (< or = 1.230) IMPRESSION IMPRESSION: THE LOWEST T-SCORE IS -0.9 IN THE LEFT HIP 1) DIAGNOSIS (based on BMD alone): NORMAL BONE DENSITY Caution: Medical conditions other than osteoporosis may cause low bone density, such as osteomalacia or renal osteodystrophy. Clinical correlation is necessary. 2) FRACTURE RISK (Based on TBS adjusted FRAX): 10-year absolute fracture risk: - major osteoporotic fracture = 9.9 % - hip fracture = 1.4 % - A diagnosis of Osteoporosis, a 10 year probability of hip fracture greater than or equal to 3% or a 10 year probability of any major osteoporosis-related fracture greater than or equal to 20% should be considered for treatment. - DXA scanner generated FRAX calculations may slightly differ from online FRAX calculations due to differences in software versions. - All recommendations and calculations are to be considered as guidelines and should not replace sound clinical judgement - Caution: Fracture risk may be increased independent of BMD in patients with corticosteroid use, age greater than 65 years, or a history of prior fragility fracture. RECOMMENDATIONS: Follow-up in 2 years or as clinically indicated. Patients that are taking corticosteroids, are transplant recipients or have hyperparathyroidism should have annual follow-up. Follow-up scans should always be done on the same machine for accurate comparison. FOR MORE INFORMATION ABOUT DIAGNOSIS AND TREATMENT: [facility] for Osteoporosis and Metabolic Bone Disease:? www.ccf.org/arthritis/o steo National Osteoporosis Foundation:? www.nof.org International Society of Clinical Densitometry www.iscd.org Remote Medical Coder: YUE Transcribe Date/Time: Oct 09 2024 3:52P Dictated by : JACKIE PÉREZ MD This examination was interpreted and the report reviewed and electronically signed by: JACKIE PÉREZ MD on Oct 09 2024 3:54PM EST [facility] DXA Skeletal system.axial Vi ews for bone densityon 10-09-2024 * * *Final Report* * * DATE OF EXAM: Oct 09 2024 2:47PM [facility] 0804 - BD DXA - AXIAL SKELETON / PROCEDURE REASON: Encounter for screening for osteoporosis * * * * Physician Interpretation * * * * EXAMINATION: DXA BONE DENSITOMETRY BD DXA - AXIAL SKELETON, BD DXA TRABECLR BONE SCORE (TBS) PATIENT DEMOGRAPHICS: Age: 68 years, Gender: Female SCANNER INFORMATION: DXA Model: [employer] - [employer] C [id number] Date Scanned: 10/09/2024 2:47 PM CLINICAL HISTORY: DIAGNOSTIC Encounter for screening for osteoporosis . RISK FACTORS FOR OSTEOPOROSIS AND ASSOCIATED FRACTURES REPORTED BY THIS PATIENT: Please refer to Bone Health Questionnaire in the EMR CURRENT THERAPY: Please refer to Bone Health Questionnaire in the EMR TECHNICAL LIMITATIONS: Degenerative disease of the spine RESULTS: Lumbar spine (L1, L2, L3, L4): 1.031 g/cm2, T-score -0.1, Z-score 1.9 Lumbar spine: 2020: 1.098 g/cm2 Statistically significant decrease Right Femoral Neck: 0.775 g/cm2, T-score -0.7, Z-score 1.1 Right Femoral Neck: 2020: 0.804 g/cm2 No statistically significant change Right Total Hip: 0.929 g/cm2, T-score -0.1, Z-score 1.3 Right Total Hip: 2020: 0.972 g/cm2 Statistically significant decrease Left Femoral Neck: 0.753 g/cm2, T-score -0.9, Z-score 0.9 Left Femoral Neck: 2020: 0.751 g/cm2 No statistically significant change Left Total Hip: 0.931 g/cm2, T-score -0.1, Z-score 1.4 Left Total Hip: 2020: 0.954 g/cm2 No statistically significant change CHANGE IS STATISTICALLY SIGNIFICANT IN THE SPINE OR HIP IF GREATER THAN OR EQUAL TO 0.04 g/cm2 VERTEBRAL FRACTURE ASSESSMENT Not performed. TRABECULAR BONE ASSESSMENT TBS score: 1.173 Bone micro-architecture: Degraded (< or = 1.230) DIVISION OF RADIOLOGY Provider, [facility] - 10/09/2024 * * *Final Report* * * DATE OF EXAM: Oct 09 2024 2:47PM [facility] 0804 - BD DXA - AXIAL SKELETON / PROCEDURE REASON: Encounter for screening for osteoporosis * * * * Physician Interpretation * * * * EXAMINATION: DXA BONE DENSITOMETRY BD DXA - AXIAL SKELETON, BD DXA TRABECLR BONE SCORE (TBS) PATIENT DEMOGRAPHICS: Age: 68 years, Gender: Female SCANNER INFORMATION: DXA Model: [employer] [place] [employer] C [id number] Date Scanned: 10/09/2024 2:47 PM CLINICAL HISTORY: DIAGNOSTIC Encounter for screening for osteoporosis . RISK FACTORS FOR OSTEOPOROSIS AND ASSOCIATED FRACTURES REPORTED BY THIS PATIENT: Please refer to Bone Health Questionnaire in the EMR CURRENT THERAPY: Please refer to Bone Health Questionnaire in the EMR TECHNICAL LIMITATIONS: Degenerative disease of the spine RESULTS: Lumbar spine (L1, L2, L3, L4): 1.031 g/cm2, T-score -0.1, Z-score 1.9 Lumbar spine: 2020: 1.098 g/cm2 Statistically significant decrease Right Femoral Neck: 0.775 g/cm2, T-score -0.7, Z-score 1.1 Right Femoral Neck: 2020: 0.804 g/cm2 No statistically significant change Right Total Hip: 0.929 g/cm2, T-score -0.1, Z-score 1.3 Right Total Hip: 2020: 0.972 g/cm2 Statistically significant decrease Left Femoral Neck: 0.753 g/cm2, T-score -0.9, Z-score 0.9 Left Femoral Neck: 2020: 0.751 g/cm2 No statistically significant change Left Total Hip: 0.931 g/cm2, T-score -0.1, Z-score 1.4 Left Total Hip: 2020: 0.954 g/cm2 No statistically significant change CHANGE IS STATISTICALLY SIGNIFICANT IN THE SPINE OR HIP IF GREATER THAN OR EQUAL TO 0.04 g/cm2 VERTEBRAL FRACTURE ASSESSMENT Not performed. TRABECULAR BONE ASSESSMENT TBS score: 1.173 Bone micro-architecture: Degraded (< or = 1.230) IMPRESSION IMPRESSION: THE LOWEST T-SCORE IS -0.9 IN THE LEFT HIP 1) DIAGNOSIS (based on BMD alone): NORMAL BONE DENSITY Caution: Medical conditions other than osteoporosis may cause low bone density, such as osteomalacia or renal osteodystrophy. Clinical correlation is necessary. 2) FRACTURE RISK (Based on TBS adjusted FRAX): 10-year absolute fracture risk: - major osteoporotic fracture = 9.9 % - hip fracture = 1.4 % - A diagnosis of Osteoporosis, a 10 year probability of hip fracture greater than or equal to 3% or a 10 year probability of any major osteoporosis-related fracture greater than or equal to 20% should be considered for treatment. - DXA scanner generated FRAX calculations may slightly differ from online FRAX calculations due to differences in software versions. - All recommendations and calculations are to be considered as guidelines and should not replace sound clinical judgement - Caution: Fracture risk may be increased independent of BMD in patients with corticosteroid use, age greater than 65 years, or a history of prior fragility fracture. RECOMMENDATIONS: Follow-up in 2 years or as clinically indicated. Patients that are taking corticosteroids, are transplant recipients or have hyperparathyroidism should have annual follow-up. Follow-up scans should always be done on the same machine for accurate comparison. FOR MORE INFORMATION ABOUT DIAGNOSIS AND TREATMENT: [facility]oporosis and Metabolic Bone Disease:? www.ccf.org/arthritis/o steo National Osteoporosis Foundation:? www.nof.org International Society of Clinical Densitometry www.iscd.org Remote Medical Coder: YUE Transcribe Date/Time: Oct 09 2024 3:52P Dictated by : JACKIE PÉREZ MD This examination was interpreted and the report reviewed and electronically signed by: JACKIE PÉREZ MD on Oct 09 2024 3:54PM EST [facility] No Panel InformationOrdered By: Ccf Provider on 10-09-2024 LOWEST T-SCORE -0.9 [facility] No Panel Informationon 10-09 IMPRESSION: THE LOWEST T-SCORE IS -0.9 IN THE LEFT HIP 1) DIAGNOSIS (based on BMD alone): NORMAL BONE DENSITY Caution: Medical conditions other than osteoporosis may cause low bone density, such as osteomalacia or renal osteodystrophy. Clinical correlation is necessary. 2) FRACTURE RISK (Based on TBS adjusted FRAX): 10-year absolute fracture risk: - major osteoporotic fracture = 9.9 % - hip fracture = 1.4 % - A diagnosis of Osteoporosis, a 10 year probability of hip fracture greater than or equal to 3% or a 10 year probability of any major osteoporosis-related fracture greater than or equal to 20% should be considered for treatment. - DXA scanner generated FRAX calculations may slightly differ from online FRAX calculations due to differences in software versions. - All recommendations and calculations are to be considered as guidelines and should not replace sound clinical judgement - Caution: Fracture risk may be increased independent of BMD in patients with corticosteroid use, age greater than 65 years, or a history of prior fragility fracture. RECOMMENDATIONS: Follow-up in 2 years or as clinically indicated. Patients that are taking corticosteroids, are transplant recipients or have hyperparathyroidism should have annual follow-up. Follow-up scans should always be done on the same machine for accurate comparison. FOR MORE INFORMATION ABOUT DIAGNOSIS AND TREATMENT: [facility] Osteoporosis and Metabolic Bone Disease:? www.ccf.org/arthritis/o steo National Osteoporosis Foundation:? www.nof.org International Society of Clinical Densitometry www.iscd.org Remote Medical Coder: YUE Transcribe Date/Time: Oct 09 2024 3:52P Dictated by : JACKIE PÉREZ MD This examination was interpreted and the report reviewed and electronically signed by: JACKIE PÉREZ MD on Oct 09 2024 3:54PM EST DIVISION OF RADIOLOGY Radiology Study observation (narrative) [facility] CNCOon 09-15-2024 CNCO Letter Text Normal [facility] PT D/C Summary (1)on 024 PT D/C Summary (1) [facility] Physical Therapy Health[address] [place] [address] / REHABILITATION SERVICES DISCHARGE SUMMARY MR#: [id number] Acct: [id number] Name: HENNY DAMIAN Rep #: [id number] : 1955 68 From: Cong Cano PT, ATC Referring Dr.: Dr. Simone Arreola MD Status: REG RCR Insurance: [facility] COMPLETE MEDICAID Discharge Summary D/C summary: It has been my pleasure to treat HENNY DAMIAN referred by Dr. Simone Arreola MD, with the diagnosis of LBP with B LE radiculopathy for a total of 6 visit(s). Discharge Date: Please see the following information for a summary of their discharge status. Subjective Subjective: Pt reports she is ready for discharge at this time Pain LBP: Pain Intensity (Out of 10): 3 Overall Improvement % Improvement: 65 Objective Objective/Function: LBP 3/10 currently, 7/10 at worst B LE radiculopathy is grossly 50% improved per patient Pt is I with HEP Rx goals achieved Goals Goal 1:: Decrease LBP x 50% to aide with sleep Goal Progress: Goal Met Goal 2:: Decrease the frequency and intensity of B LE radiculopathy x 50% to aid with ambulation Goal Progress: Goal Met Goal 3:: I with HEP Goal Progress: Goal Met Plan Plan: Discharged to HEP D/C Information d/c sentence: If there are questions or concerns regarding this patient's physical therapy, please feel free to call me at [phone]. Thank you for the referral of this patient. Sincerely, Cong Cano, PT, ATC Balance/Gait/Functional tests Balance/Special Test Scores Oswestry Low Back Score: 15 Improvement % Improvement: 65 09/15/24 1550 CC: Dr. Simone Arreola MD; Dr. Brook Horner MD [facility] Signed Normal [facility] CT Chest for screening [facility] ntraston 09-13-2024 IMPRESSION: LungRADS category: 2 S LungRADS modifier: Significant other (S), coronary artery calcification, moderate or severe LungRADS 0 reason: n/a Recommendations: Continue annual screening with LDCT in 12 months. Other actionable findings: ====== Reference: [employer]. Lung CT Screening Reporting and Data System (Lung-RADS). Available at: http://www.acr.org/Qual ity-Safety/Resources/Pamela ngRADS Remote Medical Coder: YUE Transcribe Date/Time: Sep 13 2024 6:53P Dictated by : GINA BERMUDEZ MD This examination was interpreted and the report reviewed and electronically signed by: GINA BERMUDEZ MD on Sep 13 2024 7:05PM [facility] DIVISION OF RADIOLOGY * * *Final Report* * * DATE OF EXAM: Sep 13 2024 11:59AM [facility] 0562 - CT LUNG SCREEN [facility] / PROCEDURE REASON: multiple diagnoses * * * * Physician Interpretation * * * * EXAMINATION: CHEST CT WITHOUT CONTRAST (LOW-DOSE CT LUNG CANCER SCREENING PROTOCOL) CLINICAL HISTORY: Lung cancer LDCT screening ? absence of signs or symptoms of lung cancer. Nicotine dependence (cigarettes). Baseline (initial) Technique: Spiral CT acquisition of the chest from the thoracic inlet to the upper abdomen without contrast. MQ: CTLCS_6 Patient characteristics: * Mfje-yd-Ndndy: 1955; Age at exam: 68 years * Gender: Female * Lung Disease: Asymptomatic (no signs or symptoms of lung disease) * Number of Pack Years: 38 * Current smoker (=0) or Number of Years since Quit: 0 * Ordering provider and NPI: WOJCIECH CARRERO [id number] * Interpreting radiologist and NPI: Lavon [id number] Exam acquisition parameters: * Exam Date: 09/13/2024 11:59 AM * Site: [facility] * * CT System Supervisor Precision Optical Elements: Sport Universal Process * CT System Model: Sensation * Tube Current-Time (mA-sec): 26 * Peak Voltage (kV): 120V * Scan Time (sec): 10.92 * Scan Volume (z-length, cm): -29.05 * Pitch: 0.75 * Slice Thickness (mm): 1.5 * CT Dose-Length Product: 86 mGy*cm * CT Dose Index: 2.04mGy * CT Dose Reduction Method: Automated exposure control(AEC) and iterative recon COMPARISON: None RESULT: Are nodules present? Yes, 6 or more nodules New nodules: No Enlarging nodules: No Other lung nodule comments: Few sub-6 mm (average diameter) pulmonary nodules. For reference, 5 mm RIGHT upper lobe nodule (image 55), 2.5 mm posterior RIGHT upper lobe nodule (82), 4 mm RIGHT lower lobe nodule (210), 2.5 mm LEFT lower lobe nodule (175) and 2 mm LEFT lower lobe nodule (102). Other findings: Mild subpleural groundglass opacities in the RIGHT middle lobe and lateral RIGHT lower lobe Minimal secretions in the RIGHT mainstem bronchus with diffuse bronchial wall thickening. Small calcified nodule in the RIGHT thyroid lobe. Atherosclerotic calcifications are present in the thoracic aorta and aortic root. Indeterminate nodular density in the RIGHT breast (7:55). Screening mammography from 08/23/2024 was negative for malignancy. Decreased bone density with degenerative changes in the thoracic spine. Atherosclerotic calcifications in the abdominal aorta and branch vessels. Emphysema: Moderate, centrilobular, upper lobe Coronary Artery Calcifications: Circumflex severe; Left Anterior Descending severe; Right Coronary mild Incidental coronary calcium as automatically processed and calculated using AI: Total Coronary Calcium Score = [100+] Agatston Units Percentile Rank (age and gender matched relative to reference population): [75th-100th] percentile* [* https://www.bradford-nhlbi. org/calcium/input.aspx] Localizer images: No significant findings. DIVISION OF RADIOLOGY Provider, [facility] - 09/13/2024 * * *Final Report* * * DATE OF EXAM: Sep 13 2024 11:59AM [facility] 0562 - CT LUNG SCREEN WO IVCON / PROCEDURE REASON: multiple diagnoses * * * * Physician Interpretation * * * * EXAMINATION: CHEST CT WITHOUT CONTRAST (LOW-DOSE CT LUNG CANCER SCREENING PROTOCOL) CLINICAL HISTORY: Lung cancer LDCT screening ? absence of signs or symptoms of lung cancer. Nicotine dependence (cigarettes). Baseline (initial) Technique: Spiral CT acquisition of the chest from the thoracic inlet to the upper abdomen without contrast. MQ: CTLCS_6 Patient characteristics: * Pmmi-yc-Moruw: 1955; Age at exam: 68 years * Gender: Female * Lung Disease: Asymptomatic (no signs or symptoms of lung disease) * Number of Pack Years: 38 * Current smoker (=0) or Number of Years since Quit: 0 * Ordering provider and NPI: WOJCIECH CARRERO [id number] * Interpreting radiologist and NPI: Lavon [id number] Exam acquisition parameters: * Exam Date: 09/13/2024 11:59 AM * Site: [facility] * * CT System Supervisor Precision Optical Elements: Sport Universal Process * CT System Model: Sensation * Tube Current-Time (mA-sec): 26 * Peak Voltage (kV): 120V * Scan Time (sec): 10.92 * Scan Volume (z-length, cm): -29.05 * Pitch: 0.75 * Slice Thickness (mm): 1.5 * CT Dose-Length Product: 86 mGy*cm * CT Dose Index: 2.04mGy * CT Dose Reduction Method: Automated exposure control(AEC) and iterative recon COMPARISON: None RESULT: Are nodules present? Yes, 6 or more nodules New nodules: No Enlarging nodules: No Other lung nodule comments: Few sub-6 mm (average diameter) pulmonary nodules. For reference, 5 mm RIGHT upper lobe nodule (image 55), 2.5 mm posterior RIGHT upper lobe nodule (82), 4 mm RIGHT lower lobe nodule (210), 2.5 mm LEFT lower lobe nodule (175) and 2 mm LEFT lower lobe nodule (102). Other findings: Mild subpleural groundglass opacities in the RIGHT middle lobe and lateral RIGHT lower lobe Minimal secretions in the RIGHT mainstem bronchus with diffuse bronchial wall thickening. Small calcified nodule in the RIGHT thyroid lobe. Atherosclerotic calcifications are present in the thoracic aorta and aortic root. Indeterminate nodular density in the RIGHT breast (7:55). Screening mammography from 08/23/2024 was negative for malignancy. Decreased bone density with degenerative changes in the thoracic spine. Atherosclerotic calcifications in the abdominal aorta and branch vessels. Emphysema: Moderate, centrilobular, upper lobe Coronary Artery Calcifications: Circumflex severe; Left Anterior Descending severe; Right Coronary mild Incidental coronary calcium as automatically processed and calculated using AI: Total Coronary Calcium Score = [100+] Agatston Units Percentile Rank (age and gender matched relative to reference population): [75th-100th] percentile* [* https://www.bradford-nhlbi. org/calcium/input.aspx] Localizer images: No significant findings. IMPRESSION IMPRESSION: LungRADS category: 2 S LungRADS modifier: Significant other (S), coronary artery calcification, moderate or severe LungRADS 0 reason: n/a Recommendations: Continue annual screening with LDCT in 12 months. Other actionable findings: ====== Reference: [employer]. Lung CT Screening Reporting and Data System (Lung-RADS). Available at: http://www.acr.org/Qual ity-Safety/Resources/Pamela ngRADS Remote Medical Coder: YUE Transcribe Date/Time: Sep 13 2024 6:53P Dictated by : GINA BERMUDEZ MD This examination was interpreted and the report reviewed and electronically signed by: GINA BERMUDEZ MD on Sep 13 2024 7:05PM EST [facility] Radiology Study observation (narrative) [facility] CT Chest for screening WO co ntrastOrdered By: Ccf Provider on 09-13-2024 [facility] CT LUNG SCREEN WO IVCONon CT LUNG SCREEN WO IVCON * * *Final Report* * * DATE OF EXAM: Sep 13 2024 11:59AM [facility] 0562 - CT LUNG SCREEN WO IVCON / PROCEDURE REASON: multiple diagnoses * * * * Physician Interpretation * * * * EXAMINATION: CHEST CT WITHOUT CONTRAST (LOW-DOSE CT LUNG CANCER SCREENING PROTOCOL) CLINICAL HISTORY: Lung cancer LDCT screening ? absence of signs or symptoms of lung cancer. Nicotine dependence (cigarettes). Baseline (initial) Technique: Spiral CT acquisition of the chest from the thoracic inlet to the upper abdomen without contrast. MQ: CTLCS_6 Patient characteristics: * Stii-if-Oohok: 1955; Age at exam: 68 years * Gender: Female * Lung Disease: Asymptomatic (no signs or symptoms of lung disease) * Number of Pack Years: 38 * Current smoker (=0) or Number of Years since Quit: 0 * Ordering provider and NPI: WOJCIECH CARRERO [id number] * Interpreting radiologist and NPI: Lavon [id number] Exam acquisition parameters: * Exam Date: 09/13/2024 11:59 AM * Site: [facility] * * CT System Supervisor Precision Optical Elements: Sport Universal Process * CT System Model: Sensation * Tube Current-Time (mA-sec): 26 * Peak Voltage (kV): 120V * Scan Time (sec): 10.92 * Scan Volume (z-length, cm): -29.05 * Pitch: 0.75 * Slice Thickness (mm): 1.5 * CT Dose-Length Product: 86 mGy*cm * CT Dose Index: 2.04mGy * CT Dose Reduction Method: Automated exposure control(AEC) and iterative recon COMPARISON: None RESULT: Are nodules present? Yes, 6 or more nodules New nodules: No Enlarging nodules: No Other lung nodule comments: Few sub-6 mm (average diameter) pulmonary nodules. For reference, 5 mm RIGHT upper lobe nodule (image 55), 2.5 mm posterior RIGHT upper lobe nodule (82), 4 mm RIGHT lower lobe nodule (210), 2.5 mm LEFT lower lobe nodule (175) and 2 mm LEFT lower lobe nodule (102). Other findings: Mild subpleural groundglass opacities in the RIGHT middle lobe and lateral RIGHT lower lobe Minimal secretions in the RIGHT mainstem bronchus with diffuse bronchial wall thickening. Small calcified nodule in the RIGHT thyroid lobe. Atherosclerotic calcifications are present in the thoracic aorta and aortic root. Indeterminate nodular density in the RIGHT breast (7:55). Screening mammography from 08/23/2024 was negative for malignancy. Decreased bone density with degenerative changes in the thoracic spine. Atherosclerotic calcifications in the abdominal aorta and branch vessels. Emphysema: Moderate, centrilobular, upper lobe Coronary Artery Calcifications: Circumflex severe; Left Anterior Descending severe; Right Coronary mild Incidental coronary calcium as automatically processed and calculated using AI: Total Coronary Calcium Score = [100+] Agatston Units Percentile Rank (age and gender matched relative to reference population): [75th-100th] percentile* [* https://www.bradford-nhlbi. org/calcium/input.aspx] Localizer images: No significant findings. IMPRESSION: LungRADS category: 2 S LungRADS modifier: Significant other (S), coronary artery calcification, moderate or severe LungRADS 0 reason: n/a Recommendations: Continue annual screening with LDCT in 12 months. Other actionable findings: ====== Reference: [employer]. Lung CT Screening Reporting and Data System (Lung-RADS). Available at: http://www.acr.org/Qual ity-Safety/Resources/Pamela ngRADS Remote Medical Coder: YUE Transcribe Date/Time: Sep 13 2024 6:53P Dictated by : GINA BERMUDEZ MD This examination was interpreted and the report reviewed and electronically signed by: GINA BERMUDEZ MD on Sep 13 2024 7:05PM EST [id number] Normal [facility] CBC W Auto Differential pane l (Bld)on 08-30-2024 Basophils (Bld) [#/Vol] 0.04 10*3/uL Normal <0.11 [facility] Comment on above: Order Comment: Speci men Type: BLOOD SPECIMENOrdering Facility: [facility] Address: [address] [place] [address] Performed By: #### 5 7021-8 ####[facility] LABCLIA [id number] [place] [address] [place] Basophils/100 WBC (Bld) 0.8 % Normal [facility] Comment on above: Order Comment: Speci men Type: BLOOD SPECIMENOrdering Facility: [facility] Address: [address] [place] [address] Performed By: #### 5 7021-8 ####[facility] LABCLIA [id number] [place] [address] [place] Differential cell count method Nom (Bld) Auto Normal [facility] Comment on above: Order Comment: Speci men Type: BLOOD SPECIMENOrdering Facility: [facility] Address: [address] [place] [address] Performed By: #### 5 7021-8 ####[facility] LABCLIA [id number] [place] [address] [place] Eosinophils (Bld) [#/Vol] 0.07 10*3/uL Normal <0.46 [facility] Comment on above: Order Comment: Speci men Type: BLOOD SPECIMENOrdering Facility: [facility] Address: [address] [place] [address] Performed By: #### 5 7021-8 ####[facility] LABCLIA [id number] [place] [address] [place] Eosinophils/100 WBC (Bld) 1.3 % Normal [facility] Comment on above: Order Comment: Speci men Type: BLOOD SPECIMENOrdering Facility: [facility] Address: [address] [place] [address] Performed By: #### 5 7021-8 ####[facility] LABIA [id number] [place] [address] [place] Erythrocyte distribution width (RBC) [Ratio] 12.5 % Normal 11.5-15.0 [facility] Comment on above: Order Comment: Speci men Type: BLOOD SPECIMENOrdering Facility: [facility] Address: [address] [place] [address] Performed By: #### 5 7021-8 ####[facility] LABCLIA [id number] [place] [address] [place] Hematocrit (Bld) [Volume fraction] 47.7 % High 36.0-46.0 [facility] Comment on above: Order Comment: Speci men Type: BLOOD SPECIMENOrdering Facility: [facility] Address: [address] [place] [address] Performed By: #### 5 7021-8 ####[facility] LABCLIA [id number] [place] [address] [place] Hemoglobin (Bld) [Mass/Vol] 15.4 g/dL Normal 11.5-15.5 [facility] Comment on above: Order Comment: Speci men Type: BLOOD SPECIMENOrdering Facility: [facility] Address: [address] [place] [address] Performed By: #### 5 7021-8 ####[facility] LABCLIA [id number] [place] [address] [place] Immature granulocytes (Bld) [#/Vol] 10*3/uL Normal <0.10 [facility] Comment on above: Order Comment: Speci men Type: BLOOD SPECIMENOrdering Facility: [facility] Address: [address] [place] [address] Performed By: #### 5 7021-8 ####[facility] LABCLIA [id number] [place] [address] [place] Immature granulocytes/100 WBC (Bld) 0.2 % Normal [facility] Comment on above: Order Comment: Speci men Type: BLOOD SPECIMENOrdering Facility: [facility] Address: [address] [place] [address] Performed By: #### 5 7021-8 ####[facility] LABCLIA [id number] [place] [address] [place] Lymphocytes (Bld) [#/Vol] 1.37 10*3/uL Normal 1.00-4.00 [facility] Comment on above: Order Comment: Speci men Type: BLOOD SPECIMENOrdering Facility: [facility] Address: [address] [place] [address] Performed By: #### 5 7021-8 ####[facility] LABCLIA [id number] [place] [address] [place] Lymphocytes/100 WBC (Bld) 26.0 % Normal [facility] Comment on above: Order Comment: Speci men Type: BLOOD SPECIMENOrdering Facility: [facility] Address: [address] [place] [address] Performed By: #### 5 7021-8 ####[facility] LABCLIA [id number] [place] [address] [place] MCH (RBC) [Entitic mass] 30.6 pg Normal 26.0-34.0 [facility] Comment on above: Order Comment: Speci men Type: BLOOD SPECIMENOrdering Facility: [facility] Address: [address] [place] [address] Performed By: #### 5 7021-8 ####[facility] LABCLIA [id number] [place] [address] [place] MCHC (RBC) [Mass/Vol] 32.3 g/dL Normal 30.5-36.0 [facility] Comment on above: Order Comment: Speci men Type: BLOOD SPECIMENOrdering Facility: [facility] Address: [address] [place] [address] Performed By: #### 5 7021-8 ####[facility] LABIA [id number] [place] [address] [place] MCV (RBC) [Entitic vol] 94.8 fL Normal 80.0-100.0 [facility] Comment on above: Order Comment: Speci men Type: BLOOD SPECIMENOrdering Facility: [facility] Address: [address] [place] [address] Performed By: #### 5 7021-8 ####[facility] LABCLIA [id number] [place] [address] [place] Monocytes (Bld) [#/Vol] 0.64 10*3/uL Normal <0.87 [facility] Comment on above: Order Comment: Speci men Type: BLOOD SPECIMENOrdering Facility: [facility] Address: [address] [place] [address] Performed By: #### 5 7021-8 ####[facility] LABCLIA [id number] [place] [address] [place] Monocytes/100 WBC (Bld) 12.2 % Normal [facility] Comment on above: Order Comment: Speci men Type: BLOOD SPECIMENOrdering Facility: [facility] Address: [address] [place] [address] Performed By: #### 5 7021-8 ####[facility] LABCLIA [id number] [place] [address] [place] Neutrophils (Bld) [#/Vol] 3.13 10*3/uL Normal 1.45-7.50 [facility] Comment on above: Order Comment: Speci men Type: BLOOD SPECIMENOrdering Facility: [facility] Address: [address] [place] [address] Performed By: #### 5 7021-8 ####[facility] LABCLIA [id number] [place] [address] [place] Neutrophils/100 WBC (Bld) 59.5 % Normal [facility] Comment on above: Order Comment: Speci men Type: BLOOD SPECIMENOrdering Facility: [facility] Address: [address] [place] [address] Performed By: #### 5 7021-8 ####[facility] LABCLIA [id number] [place] [address] [place] Nucleated RBC (Bld) [#/Vol] 10*3/uL Normal <0.01 [facility] Comment on above: Order Comment: Speci men Type: BLOOD SPECIMENOrdering Facility: [facility] Address: [address] [place] [address] Performed By: #### 5 7021-8 ####[facility] LABCLIA [id number] [place] [address] [place] Nucleated RBC/100 WBC (Bld) [Ratio] 0.0 /100 WBC Normal [facility] Comment on above: Order Comment: Speci men Type: BLOOD SPECIMENOrdering Facility: [facility] Address: [address] [place] [address] Performed By: #### 5 7021-8 ####[facility] LABIA [id number] [place] [address] [place] Platelet mean volume (Bld) [Entitic vol] 9.2 fL Normal 9.0-12.7 [facility] Comment on above: Order Comment: Speci men Type: BLOOD SPECIMENOrdering Facility: [facility] [facility] Address: [address] [place] [address] Performed By: #### 5 7021-8 ####[facility] LABIA [id number] [place] [address] [place] Platelets (Bld) [#/Vol] 220 10*3/uL Normal 150-400 [facility] Comment on above: Order Comment: Speci men Type: BLOOD SPECIMENOrdering Facility: [facility] Address: [address] [place] [address] Performed By: #### 5 7021-8 ####[facility] LABIA [id number] [place] [address] [place] RBC (Bld) [#/Vol] 5.03 10*6/uL Normal 3.90-5.20 [facility] Comment on above: Order Comment: Speci men Type: BLOOD SPECIMENOrdering Facility: [facility] Address: [address] [place] [address] Performed By: #### 5 7021-8 ####[facility] LABIA [id number] [place] [address] [place] WBC (Bld) [#/Vol] 5.26 10*3/uL Normal 3.70-11.00 [facility] Comment on above: Order Comment: Speci men Type: BLOOD SPECIMENOrdering Facility: [facility] Address: [address] [place] [address] Performed By: #### 5 7021-8 ####[facility] LABCLIA [id number] [place] [address] [place] Comprehensive metabolic 2000 panelon 08-30-2024 Albumin [Mass/Vol] 4.1 g/dL Normal 3.9-4.9 [facility] Comment on above: Order Comment: Speci men Type: BLOOD SPECIMENOrdering Facility: [facility] Address: [address] [place] [address] Performed By: #### 2 4323-8, 02695-4 ####[facility] LABCLIA [id number] [place] [address] [place] ALP [Catalytic activity/Vol] 80 U/L Normal 34-123 [facility] Comment on above: Order Comment: Speci men Type: BLOOD SPECIMENOrdering Facility: [facility] Address: [address] [place] [address] Performed By: #### 2 4323-8, 70035-6 ####[facility] LABCLIA [id number] [place] [address] [place] ALT [Catalytic activity/Vol] 13 U/L Normal 7-38 [facility] Comment on above: Order Comment: Speci men Type: BLOOD SPECIMENOrdering Facility: [facility] Address: [address] [place] [address] Performed By: #### 2 4323-8, 32824-0 ####[facility] LABCLIA [id number] [place] [address] [place] Anion gap [Moles/Vol] 11 mmol/L Normal 8-15 [facility] Comment on above: Order Comment: Speci men Type: BLOOD SPECIMENOrdering Facility: [facility] Address: [address] [place] [address] Performed By: #### 2 4323-8, 14665-8 ####[facility] LABIA [id number] [place] [address] [place] AST [Catalytic activity/Vol] 19 U/L Normal 13-35 [facility] Comment on above: Order Comment: Speci men Type: BLOOD SPECIMENOrdering Facility: [facility] Address: [address] [place] [address] Performed By: #### 2 4323-8, 52555-2 ####[facility] LABIA [id number] [place] [address] [place] Bilirubin [Mass/Vol] 0.4 mg/dL Normal 0.2-1.3 [facility] Comment on above: Order Comment: Speci men Type: BLOOD SPECIMENOrdering Facility: [facility] Address: [address] [place] [address] Performed By: #### 2 4323-8, 60021-8 ####[facility] LABIA [id number] [place] [address] [place] Calcium [Mass/Vol] 9.5 mg/dL Normal 8.5-10.2 [facility] Comment on above: Order Comment: Speci men Type: BLOOD SPECIMENOrdering Facility: [facility] Address: [address] [place] [address] Performed By: #### 2 4323-8, 49333-2 ####[facility] LABIA [id number] [place] [address] [place] Chloride [Moles/Vol] 101 mmol/L Normal 98-107 [facility] Comment on above: Order Comment: Speci men Type: BLOOD SPECIMENOrdering Facility: [facility] Address: [address] [place] [address] Performed By: #### 2 4323-8, ####[facility] LABCLIA [id number] [place] [id number] [place] CO2 [Moles/Vol] 29 mmol/L Normal 22-30 [facility] Comment on above: Order Comment: Speci men Type: BLOOD SPECIMENOrdering Facility: [facility] Address: [address] [place] [address] Performed By: #### 2 4323-8, ####[facility] LABIA [id number] [place] [address] [place] Creatinine [Mass/Vol] 0.77 mg/dL Normal 0.58-0.96 [facility] Comment on above: Order Comment: Speci men Type: BLOOD SPECIMENOrdering Facility: [facility] Address: [address] [place] [address] Performed By: #### 2 4323-8, ####[facility] [id number] [place] [address] [place] Creatinine and Glomerular filtration rate.predicted panel (S/P/Bld) 84 mL/min/1.73m??? Normal >=60 [facility] Comment on above: Order Comment: Speci men Type: BLOOD SPECIMENOrdering Facility: [facility] Address: [address] [place] [address] Result Comment: Martha mated Glomerular Filtration Rate (eGFR) is calculated using the 2020 CKD-EPI creatinine equation. This equation utilizes serum creatinine, sex, and age as parameters. The creatinine assay has traceable calibration to isotope dilution-mass spectrometry. Refer to KDIGO guidelines for clinical interpretation. In patients with unstable renal function, e.g. those with acute kidney injury, the eGFR may not accurately reflect actual GFR. Performed By: #### 2 4323-8, 77293-1 ####[facility] LABIA [id number] [place] [id number] [place] Glucose [Mass/Vol] 100 mg/dL High 74-99 [facility] Comment on above: Order Comment: Michelle denney Type: BLOOD SPECIMENOrdering Facility: [facility] Address: [address] [place] [address] Result Comment: The [place] Diabetes Association (ADA) provides guidance for cutoff values for fasting glucose and random glucose. The ADA defines fasting as no caloric intake for at least 8 hours. Fasting plasma glucose results between 100 to 125 mg/dL indicate increased risk for diabetes (prediabetes). Fasting plasma glucose results greater than or equal to 126 mg/dL meet the criteria for diagnosis of diabetes. In the absence of unequivocal hyperglycemia, results should be confirmed by repeat testing. In a patient with classic symptoms of hyperglycemia or hyperglycemic crisis, random plasma glucose results greater than or equal to 200 mg/dL meet the criteria for diagnosis of diabetes. Reference: Standards of Medical Care in Diabetes 2016, [place] Diabetes Association. Diabetes Care. 2016.39(Suppl 1). Performed By: #### 2 4323-8, 58703-9 ####[facility] LABCLIA [id number] [place] [address] [place] Potassium [Moles/Vol] 4.2 mmol/L Normal 3.7-5.1 [facility] Comment on above: Order Comment: Michelle denney Type: BLOOD SPECIMENOrdering Facility: [facility] Address: [address] [place] [address] Performed By: #### 2 4323-8, 03529-4 ####[facility] LABCLIA [id number] [facility] [place] [address] [place] Protein [Mass/Vol] 6.8 g/dL Normal 6.3-8.0 [facility] Comment on above: Order Comment: Michelle denney Type: BLOOD SPECIMENOrdering Facility: [facility] Address: [address] [place] [address] Performed By: #### 2 4323-8, 07182-7 ####[facility] LABCLIA [id number] [facility] [place] [place] [address] [place] Sodium [Moles/Vol] 141 mmol/L Normal 136-144 [facility] Comment on above: Order Comment: Speci men Type: BLOOD SPECIMENOrdering Facility: [facility] Address: [address] [place] [address] Performed By: #### 2 4323-8, 03684-8 ####[facility] LABCLIA [id number] [place] [address] [place] Urea nitrogen [Mass/Vol] 7 mg/dL Normal 7-21 [facility] Comment on above: Order Comment: Speci men Type: BLOOD SPECIMENOrdering Facility: [facility] Address: [address] [place] [address] Performed By: #### 2 4323-8, 44947-3 ####[facility] LABCLIA [id number] [place] [address] [place] Lipid 1996 panelon 4 Cholesterol [Mass/Vol] 188 mg/dL Normal <200 [facility] Comment on above: Order Comment: Speci men Type: BLOOD SPECIMENOrdering Facility: [facility] Address: [address] [place] [address] Result Comment: <200 mg/dL, Desirable 200-239 mg/dL, Borderline high >239 mg/dL, High Performed By: #### 2 4323-8, 97341-7 ####[facility] LABCLIA [id number] [place] [address] [place] Cholesterol in HDL [Mass/Vol] 44 mg/dL Normal >39 [facility] Comment on above: Order Comment: Speci men Type: BLOOD SPECIMENOrdering Facility: [facility] Address: [address] [place] [address] Result Comment: 40-5 9 mg/dL, Acceptable >59 mg/dL, High: Negative risk factor for coronary heart disease <40 mg/dL, Low: Positive risk factor for coronary heart disease Performed By: #### 2 4323-8, 46822-0 ####[facility] LABCLIA [id number] [place] [address] [place] Cholesterol in LDL [Mass/Vol] 96 mg/dL Normal <100 [facility] Comment on above: Order Comment: Michelle men Type: BLOOD SPECIMENOrdering Facility: [facility] Address: [address] [place] [address] Result Comment: <100 mg/dL, Optimal 100-129 mg/dL, Near optimal/above optimal 130-159 mg/dL, Borderline high 160-189 mg/dL, High >189 mg/dL, Very high Secondary prevention optimal LDL Cholesterol levels are recommended to be < 70 mg/dL Performed By: #### 2 4323-8, 13988-8 ####[facility] LABCLIA [id number] [address] [place] Cholesterol in LDL/Cholesterol in HDL [Mass ratio] 2.18 {ratio} Normal <2.54 [facility] Comment on above: Order Comment: Michelle men Type: BLOOD SPECIMENOrdering Facility: [facility] Address: [address] [place] [address] Result Comment: Refe bryon: 1. National Cholesterol Education Program ATP III Guideline At-A-Glance Quick Desk Reference: National Heart, Lung, and Blood [place]. National Institutes of Health. 2001: NIH Publication No. 01-3305. 2. An International Atherosclerosis Society position paper: global recommendations for the management of dyslipidemia: executive summary, Atherosclerosis. 2014: 232(2):410-413. Performed By: #### 2 4323-8, 04485-6 ####[facility] LABCLIA [id number] [place] [address] [place] Cholesterol in VLDL [Mass/Vol] 48 mg/dL High <30 [facility] Comment on above: Order Comment: Michelle denney Type: BLOOD SPECIMENOrdering Facility: [facility] Address: [address] [place] [address] Performed By: #### 2 4323-8, 86533-0 ####[facility] LABCLIA [id number] [place] [address] [place] Cholesterol non HDL [Mass/Vol] 144 mg/dL High <130 [facility] Comment on above: Order Comment: Speci men Type: BLOOD SPECIMENOrdering Facility: [facility] Address: [address] [place] [address] Result Comment: <130 mg/dL, Optimal 130-159 mg/dL, Near optimal/above optimal 160-189 mg/dL, Borderline high 190-219 mg/dL, High >219 mg/dL, Very high Secondary prevention optimal non HDL Cholesterol levels are recommended to be <100 mg/dL Performed By: #### 2 4323-8, 45970-2 ####[facility] LABCLIA [id number] [address] [place] Cholesterol.total/Cho lesterol in HDL [Mass ratio] 4.27 {ratio} Normal <5.10 [facility] Comment on above: Order Comment: Speci men Type: BLOOD SPECIMENOrdering Facility: [facility] Address: [address] [place] [address] Performed By: #### 2 4323-8, 16257-7 ####[facility] LABCLIA [id number] [address] [place] FASTING TIME 12 hrs Normal [facility] Comment on above: Order Comment: Speci men Type: BLOOD SPECIMENOrdering Facility: [facility] Address: [address] [place] [address] Performed By: #### 2 4323-8, 74620-4 ####[facility] LABCLIA [id number] [place] [address] [place] Triglyceride [Mass/Vol] 240 mg/dL High <150 [facility] Comment on above: Order Comment: Speci men Type: BLOOD SPECIMENOrdering Facility: [facility] Address: [address] [place] [address] Result Comment: <150 mg/dL, Normal 150-199 mg/dL, Borderline high 200-499 mg/dL, High >499 mg/dL, Very high Performed By: #### 2 4323-8, 55066-7 ####[facility] LABJAXON [id number] [address] [place] CNOVon 08-28-2024 CNOV Office Visit (PULMWS ) HENNY DAMIAN ([id number]) 1955 F Date Time Provider Department 08/28/24 8:30 AM WOJCIECH CARRERO PULDONAVAN During your visit today, we recorded the following information about you: Pulse Blood pressure Weight 62/minute 128/70 72 kg Wojciech Carrero APRN.PUBLIC SERVICE ADMINISTRATOR 08/28/2024 4:06 PM Signed LUNG SCREENING VISIT PRIMARY CARE PHYSICIAN: Brook Horner MD PULMONARY PROVIDER: none Results will be communicated via letter or electronic record if applicable. Visit Delivery: In Person Patient Visit Type: New to Screening Current or Ex-smoker? [Current Exam Type: baseline LDCT Number of Pack Years: 38 Current smoker (=0) REQUESTER: The referring provider advised the patient to have screening. HISTORY OF PRESENT ILLNESS: Henny Damian is a 68 year old Active smoker who presents for lung screening. Currently smoking 14-20 cigarettes/day. Benign polyp on vocal cord. 05/2020 coronary stent-left circumflex, follows with cardiology [facility]. Respiratory symptoms include: SOB: Yes with walking Chest tightness: No Coughing: Yes: With mucus Clear Hemoptysis: No Wheezing: Yes Fever/Chills: No Recent Respiratory Infection: No Unintentional weight loss: No Last 6 Encounter Wt Readings: Date: Wt: 08/28/2024 72 kg (158 lb 12.8 oz) 08/23/2024 72.1 kg (159 lb) 08/16/2024 71.2 kg (157 lb) 12/29/2023 77.4 kg (170 lb 9.6 oz) 08/30/2023 74.8 kg (165 lb) 05/25/2023 74.8 kg (165 lb) ECOG PERFORMANCE STATUS: 0- Fully active, able to carry on all pre-disease performance w/o restriction. Modified Medical Research [employer] Dyspnea Scale (MMRC) I only get breathless with strenous exercise 0 PAST MEDICAL HISTORY Diagnosis Date Arthritis Atrial fibrillation (HCC) had stent placement Coronary artery disease COVID-19 05/2022 Depression GERD (gastroesophageal reflux disease) Hayfever Hemorrhoid History of transfusion PAST SURGICAL HISTORY Procedure Laterality Date ABDOMINAL SURGERY HX , CLASSIC, ANTE/POST CA 1994 COLONOSCOPY 09/11/2022 repeat in 10 years COLONOSCOPY FLX DX W/COLLJ SPEC WHEN PFRMD 12/19/2018 Colonoscopy COLSC FLX W/RMVL OF TUMOR POLYP LESION SNARE TQ 06/24/2009 polyp at 25cm EGD 09/11/2022 ESOPHAGOGASTRODUODENOSC OPY TRANSORAL DIAGNOSTIC 12/19/2018 EGD HEMORRHOIDECTOMY INT AND XTRNL 2/> COLUMN/JULIENNE 03/06/2010 HERNIA REPAIR HX PAST SURGICAL HISTORY OF Late Hernia repair PAST SURGICAL HISTORY OF 2011 polyp vocal cord STENT PLACEMENT 05/14/2020 [facility] THROAT SURGERY PROCEDURE UNLISTED 12/27/2012 polyp vocal cord TONSILLECTOMY HX TOTAL ABDOMINAL HYSTERECT W/WO RMVL TUBE OVARY 1997 RIVER AND LSO - benign indication (endometrial implants) - 1997 VAGINAL HYSTERECTOMY X-RAY LUMBAR SPINE AP AND LAT 08/28/2015 wc-degenerative changes FAMILY HISTORY Problem Relation Age of Onset Diabetes Mother other (NE) Mother other (NE) Father COPD Sister Emphysema Sister No Known Problems Brother No Known Problems Maternal Grandmother No Known Problems Maternal Grandfather No Known Problems Paternal Grandmother No Known Problems Paternal Grandfather No Known Problems Daughter tiZANidine HCl (ZANAFLEX) 4 mg capsule EVERY 8 HOURS ferrous sulfate (FEROSUL) 325 mg (65 mg iron) tablet Take 325 mg by mouth. pravastatin (PRAVACHOL) 20 mg tablet Take 1 tablet by mouth once daily. sertraline (ZOLOFT) 50 mg tablet Take 1 tablet by mouth once daily. pantoprazole DR (PROTONIX) 40 mg tablet Take 1 tablet by mouth two times a day. traZODone (DESYREL) 150 mg tablet Take 1 tablet by mouth daily at bedtime. HYDROcodone-acetaminoph en (NORCO) 5-325 mg per tablet Take 1 tablet by mouth two times a day. cyanocobalamin (VITAMIN B-12) 1,000 mcg tab Take 1 tablet by mouth once daily. ascorbic acid, vitamin C, (VITAMIN C) 500 mg tablet Take 1 tablet by mouth once daily. apixaban (ELIQUIS) 5 mg tab(s) Take 5 mg by mouth twice daily. gabapentin (NEURONTIN) 100 mg capsule Take 100 mg by mouth twice daily. folic acid/multivit-min/lutei n (CENTRUM SILVER ORAL) Take by mouth once daily. cholecalciferol (VITAMIN D3) 5,000 unit tab Take 1 tablet by mouth once daily. metoprolol succinate ER (TOPROL XL) 50 mg 24 hr tablet Take 50 mg by mouth once daily. BIOTIN ORAL Take 1 tablet by mouth once daily. 500 mg ALLERGIES Allergen Reactions Doxycycline Hcl Other: See Comments insomnia The medications and allergies were reviewed and reconciled for this patient and deemed current. Lung Cancer Risk Factors: 1.Tobacco Use: Start Age 18, Quit Age: N/A, Average packs per day 0.75, Pack Years 38.25 2. Passive Smoke Exposure: Yes, as a Child and as an Adult 3. Personal hx of malignancy: No, Type of Cancer: 4. Significant exposures (1 year or more of exposure): None, 5. Race: White 6. Education: High S (more content not included)... Normal [facility] CNOVon 08-23-2024 CNOV Office Visit (OBGYWM ) HENNY DAMIAN ([id number]) 1955 F Date Time Provider Department 08/23/24 2:45 PM KELLEY BARRERA During your visit today, we recorded the following information about you: Blood pressure Weight Height 100/64 72.1 kg 1.585 m Kelley Barrera APRN.CNP 08/23/2024 3:15 PM Signed Mobility Specialist offered: Patient declines. Henny is a 68 year old who presents for an annual gynecologic exam without complaints. 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 Age at Menarche: Age at First : Age at Menopause: Senior Clinical Research Scientist History Comments: Sexual Activity: Not Currently; No partner data on record Contraception: No contraception data on record PAST MEDICAL HISTORY Diagnosis Date Arthritis Atrial fibrillation (HCC) had stent placement Coronary artery disease COVID-19 05/2022 Depression GERD (gastroesophageal reflux disease) Hayfever Hemorrhoid History of transfusion PAST SURGICAL HISTORY Procedure Laterality Date ABDOMINAL SURGERY HX , CLASSIC, ANTE/POST CA 1994 COLONOSCOPY 09/11/2022 repeat in 10 years COLONOSCOPY FLX DX W/COLLJ SPEC WHEN PFRMD 12/19/2018 Colonoscopy COLSC FLX W/RMVL OF TUMOR POLYP LESION SNARE TQ 06/24/2009 polyp at 25cm EGD 09/11/2022 ESOPHAGOGASTRODUODENOSC OPY TRANSORAL DIAGNOSTIC 12/19/2018 EGD HEMORRHOIDECTOMY INT AND XTRNL 2/> COLUMN/JULIENNE 03/06/2010 HERNIA REPAIR HX PAST SURGICAL HISTORY OF Late Hernia repair PAST SURGICAL HISTORY OF 2011 polyp vocal cord STENT PLACEMENT 05/14/2020 [facility] THROAT SURGERY PROCEDURE UNLISTED 12/27/2012 polyp vocal cord TONSILLECTOMY HX TOTAL ABDOMINAL HYSTERECT W/WO RMVL TUBE OVARY 1997 RIVER AND LSO - benign indication (endometrial implants) - 1998 VAGINAL HYSTERECTOMY X-RAY LUMBAR SPINE AP AND LAT 08/28/2015 wch-degenerative changes FAMILY HISTORY Problem Relation Age of Onset Diabetes Mother other (NE) Mother other (NE) Father COPD Sister Emphysema Sister SOCIAL HISTORY Social History Tobacco Use Smoking status: Every Day Current packs/day: 1.00 Average packs/day: 1 pack/day for 30.0 years (30.0 ttl pk-yrs) Types: Cigarettes Smokeless tobacco: Never Vaping Use Vaping status: Never Used Substance Use Topics Alcohol use: Yes Comment: rare - 1 drink a few times a year Drug use: No REVIEW OF SYSTEMS Abdomen: No abdominal pain, nausea, vomiting, diarrhea, or constipation. No bloating, early satiety, indigestion, or increased flatulence. Bladder: No dysuria, gross hematuria, urinary frequency, urinary urgency, or incontinence Breast: No breast lumps, nipple d/c, overlying skin changes, redness or skin retraction Allergies and current medication updated:Yes SENSITIVE EXAM: The sensitive examination was discussed with the Patient or Patient's Authorized Blow Mold Operator. As applicable, any other physician, advance practice provider, medical student, or other health professional student that will be observing or involved in the sensitive examination for educational or training purposes was discussed with the Patient or Authorized Blow Mold Operator. The Patient or Authorized Blow Mold Operator has agreed to proceed with the sensitive examination. (Sensitive examination includes inspection and/or palpation of the breasts, pelvis, prostate and anorectal regions). EXAM: BP 100/64 Ht 5' 2.402 (1.59m) Wt 159 lb (72.1kg) BMI 28.71 kg/(m2). GENERAL: pleasant, female in no apparent distress HEENT: Normocephalic, atraumatic, mucus membranes moist, and no lesions NECK: Supple, full range of motion, no adenopathy, and thyroid normal DERMATOLOGY: Normal, without lesions, non-icteric, and non-hirsute BREAST: soft, non-tender, symmetric, no dominant mass, normal nipple-areolar complex, no lymphadenopathy, and no nipple discharge CHEST: Normal inspiratory effort ABDOMEN: soft, non-tender, and no masses PELVIC: external genitalia normal, normal Bartholin's glands, urethra, [place]'s glands, no vulvar lesions, cervix surgically absent, good vaginal support, physiologic discharge present, normal appearing perineal body and perianal region, atrophic changes BIMANUAL: no adnexal masses, non-tender, and uterus surgically absent RECTOVAGINAL: deferred. NEURO: alert and oriented x3,exam grossly non-focal EXTREMITIES: normal ASSESSMENT/PLAN: 1) Health maintenance: Pap/HPV screening no longer needed Mammogram ordered Mammogram up to date Nutrition, exercise and routine health maintenanc (more content not included)... Normal [facility] SCREENING W TOMOon 08-23 HILARY SCREENING W OLAYINKA * * *Final Report* * * DATE OF EXAM: Aug 23 2024 2:47PM W [id number] - HILARY SCREENING W OLAYINKA / PROCEDURE REASON: Encounter for screening mammogram for malignant neoplasm of breast * * * * Physician Interpretation * * * * RESULT: [facility] [address] [place] [address] HISTORY: Patient is 68 years old and is seen for screening and is asymptomatic in both breasts. Patient states no personal history of breast cancer. Patient states no personal history of other cancers. COMPARISON STUDIES: The present examination has been compared to prior imaging studies dated 11/26/2017 (mammogram), 12/30/2018 (mammogram), 09/19/2020 (mammogram), 07/24/2022 (mammogram) and 08/20/2023 (mammogram). MAMMOGRAM TECHNIQUE: The study was acquired using full field digital technology and interpreted from soft copy. Digital Breast Tomosynthesis (DBT) images were obtained and used to assist in the interpretation of this examination. Computer-aided detection was utilized by the radiologist in the interpretation of this examination. MAMMOGRAM FINDINGS: There are scattered areas of fibroglandular density. No suspicious masses, calcifications or other abnormalities are seen in either breast. There are no significant changes from the prior study. IMPRESSION: There is no mammographic evidence of malignancy in either breast. Routine screening mammogram is recommended. Annual mammogram will be due in 1 year. BI-RADS Category 1: Negative RISK: Based on the Tyrer-Cuzick (TC) risk assessment model, this patient has a 3.4% lifetime risk of developing breast cancer, meaning they are at average risk for developing breast cancer. However, this is only an estimate based on available history provided on the patient's questionnaire. We encourage all patients to talk with their providers about these results, further recommendations for managing breast health, and appropriate supplemental screening options if the patient has dense breast tissue. Interpreting Radiologist: Sandip Kiser M.D. Electronically signed on: 08/24/2024 Remote Medical Coder: DORIS Transcribe Date/Time: Aug 23 2024 2:17P Dictated by: SANDIP KISER MD This examination was interpreted and the report reviewed and electronically signed by: SANDIP KISER MD on Aug 24 2024 2:57PM EST [id number] Normal [facility] HEMOGLOBIN A1C (POC)on 08-16 HbA1c (Bld) [Mass fraction] 5.8 % Abnormal 4.3 - 5.6 % [facility] Comment on above: Location:[address], [place], [address] Point of care (POC) Hemoglobin A1c (HGBA1C) testing is intended to assess glucose control and provide a management tool for patients known to have diabetes and their healthcare providers. Target HGBA1C levels may depend on specific clinical circumstances. POC HGBA1C is not intended for use as a diagnostic or screening test; laboratory-based testing should be used for diagnostic purposes. The following information is supplemental and may not be applicable to specific diabetes management situations: The POC device material reprocessing associate provides a normal range of 4.2% to 6.5% for the HGBA1C POC test. However, the [place] [employer] guidelines indicate that patients with HGBA1C in the range of 5.7% to 6.4% are at increased risk for development of diabetes and that intervention by lifestyle modification may be beneficial. A HGBA1C level greater than or equal to 6.5% is considered diagnostic of diabetes, pending confirmatory testing. Use of HGBA1C testing to evaluate glucose control may not be appropriate for patients with hemoglobin variants or other conditions (e.g. anemia) that alter red blood cell lifespan. Interpretation and review of laboratory results Abnormal [facility] Inital Evaluation (1) - PTon 08-10-2024 Inital Evaluation (1) - PT [facility] [place] [address] / REHABILITATION SERVICES INITIAL EVALUATION MR#: [id number] Acct: [id number] Name: HENNY DAMIAN Rep #: [id number] : 1955 68 From: Cong Cano PT, ATC Referring Dr.: Dr. Simone Arreola MD Status: REG R Insurance: [facility] MEDICAID Patient's Visit Information Visit Information Visit Information: HENNY DAMIAN is a 68 year old F referred to Physical Therapy by Dr. Simone Arreola MD with a diagnosis of LBP with B LE radiculopathy. 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 Pt notes the pain radiates to her ankle region. 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 Pt notes since she has retired, the pain has become less. Pt reports she gets injections into her LB which usually takes her pain away for 3 months. Pt reports she was due for an injection this month, but the pain is less so she chose to skip the injection and try therapy at this time. Pt reports increased pain with sweeping her floors and cleaning her house. Pt reports prolonged standing and walking, such as when she goes grocery shopping, increases her pain. sitting and resting helps her pain to lessen. Pt reports she had recent xrays which revealed degenerative changes. Pt reports no sleep difficulty as long as she takes pain med and a sleeping pill. 4/10 pain while sitting here at rest, 10/10 at worst Pain LBP: Pain Intensity (Out of 10): 4 Pain Intensity Range: 10 Objective Objective: Neuro: B LE sensation is WNL to light touch MMT: B LE's are grossly 5/5 throughout ROM: Pt is moderately limited with L/S extension. all other ROM is WNL. Repeated movements: BARBARA 10x2 increase pain. SKTC/DKTC 10 sec x 3 ea NE TU seconds Balance/Special Test Scores Oswestry Low Back Score: 14 Goals Goal 1:: Decrease LBP x 50% to aide with sleep Goal Time Frame: 4-6 Weeks Goal 2:: Decrease the frequency and intensity of B LE radiculopathy x 50% to aid with ambulation Goal Time Frame: 4-6 Weeks Goal 3:: I with HEP Goal Time Frame: 4-6 Weeks Rehabilitation Potential Physical Therapy Diagnosis: Pt has LBP, B LE radiculopathy, and limited L/S ROM secondary to degenerative changes in L/S Rehabilitation Potential: Good Anticipated Interventions Patient/Client Instruction: Educate patient on: Condition and Plan of Care For the Purpose of:: To improve self management Therapeutic Exercise to Include: Strength training, Postural training and Dynamic Lumbar Stabilization For the Purpose of:: To decrease pain, To increase ROM and To improve muscle performance and motor function Text: Thank you for the opportunity to evaluate your patient. For Medicare and Medicare HMO plans, please review the plan of care and approve it. It will need to be FAXED BACK to us at [phone] for Medicare purposes. For Medicare only, by signing this I certify the plan of care. Please let me know if there are questions or concerns regarding this plan of care. Physician Signature: Date: 08/10/24 1500 CC: Dr. Simone Arreola MD; Dr. Brook Horner MD [facility] Signed Normal [facility] Lumbar Spine 2 or 3 Viewson 07-26-2024 Lumbar Spine 2 or 3 Views [facility] Imaging Services [address] [place] [address] [id number] Lumbar Spine 2 or 3 Views MR#: [id number] Acct: [id number] Name: HENNY DAMIAN Rep #: [id number] : 1955 F 68 From: Jada Marmolejo MD PCP: Dr. Brook Horner MD Status: REG CLI Study: Lumbar Spine 2 or 3 Views Date of Exam: Exam# [id number] Ordering [place]: [place] [id number] EXAM: XR LUMBOSACRAL SPINE, 2 OR 3 VIEWS CLINICAL INDICATION: M54.16 LUMBAR RADICULOPATHY TECHNIQUE: Frontal and lateral views of the lumbar spine and sacrum. COMPARISON: September 05, 2019. FINDINGS: VERTEBRAE: The usual lordotic curvature remains mildly straightened similar to prior exam. Mild increased endplate sclerosis at L3-4. Similar mild spondylosis. Mild dextro scoliosis centered at L3 appears similar. Preserved vertebral body height. No fracture. No significant facet arthropathy. DISC SPACES: There is persistent marked disc space narrowing at L2-S1, increased at L3-4 compared to prior exam. VASCULATURE: Similar aortoiliac atherosclerotic calcification. GASTROINTESTINAL TRACT: Unremarkable as visualized. Included bowel gas pattern is non-obstructive. RAD/Lumbar Spine 2 or 3 Views IMPRESSION: Moderate multilevel degenerative changes, including increased L3-4 disc space narrowing and endplate sclerosis compared to 2019. Otherwise similar multilevel degenerative findings. Electronically Signed: Jada Marmolejo MD at 19:03 EDT , CC: Dr. Simone Arreola MD; Dr. Brook Horner MD Remote Medical Coder: Signed Normal [facility] AMYLASE BLDon 12-29-2023 Amylase [Catalytic activity/Vol] 47 U/L 30 - 104 U/L [facility] CBC W Auto Differential pane l (Bld)on 12-29-2023 Basophils (Bld) [#/Vol] 0.06 10*3/uL <0.11 k/uL [facility] Basophils/100 WBC (Bld) 0.8 % [facility] Differential cell count method Nom (Bld) Auto [facility] Eosinophils (Bld) [#/Vol] 0.09 10*3/uL <0.46 k/uL [facility] Eosinophils/100 WBC (Bld) 1.3 % [facility] Erythrocyte distribution width (RBC) [Ratio] 13.2 % 11.5 - 15.0 % [facility] Hematocrit (Bld) [Volume fraction] 47.9 % High 36.0 - 46.0 % [facility] Hemoglobin (Bld) [Mass/Vol] 15.3 g/dL 11.5 - 15.5 g/dL [facility] Immature granulocytes (Bld) [#/Vol] <0.10 k/uL [facility] Immature granulocytes/100 WBC (Bld) 0.3 % [facility] Lymphocytes (Bld) [#/Vol] 1.59 10*3/uL 1.00 - 4.00 k/uL [facility] Lymphocytes/100 WBC (Bld) 22.5 % [facility] MCH (RBC) [Entitic mass] 30.1 pg 26.0 - 34.0 pg [facility] MCHC (RBC) [Mass/Vol] 31.9 g/dL 30.5 - 36.0 g/dL [facility] MCV (RBC) [Entitic vol] 94.3 fL 80.0 - 100.0 fL [facility] Monocytes (Bld) [#/Vol] 0.89 10*3/uL High <0.87 k/uL [facility] Monocytes/100 WBC (Bld) 12.6 % [facility] Neutrophils (Bld) [#/Vol] 4.42 10*3/uL 1.45 - 7.50 k/uL [facility] Neutrophils/100 WBC (Bld) 62.5 % [facility] Nucleated RBC (Bld) [#/Vol] <0.01 k/uL [facility] Nucleated RBC/100 WBC (Bld) [Ratio] 0.0 /100 WBC [facility] Platelet mean volume (Bld) [Entitic vol] 9.5 fL 9.0 - 12.7 fL [facility] Platelets (Bld) [#/Vol] 247 10*3/uL 150 - 400 k/uL [facility] RBC (Bld) [#/Vol] 5.08 10*6/uL 3.90 - 5.2 0 m/uL [facility] WBC (Bld) [#/Vol] 7.07 10*3/uL 3.70 - 11.00 k/uL [facility] Comprehensive metabolic 2000 panelon 12-29-2023 Albumin [Mass/Vol] 4.4 g/dL 3.9 - 4.9 g/dL [facility] ALP [Catalytic activity/Vol] 83 U/L 34 - 123 U/L [facility] ALT [Catalytic activity/Vol] 13 U/L 7 - 38 U/L [facility] Anion gap [Moles/Vol] 11 mmol/L 9 - 18 mmol/L [facility] AST [Catalytic activity/Vol] 17 U/L 13 - 35 U/L [facility] Bilirubin [Mass/Vol] 0.3 mg/dL 0.2 - 1 .3 mg/dL [facility] Calcium [Mass/Vol] 9.7 mg/dL 8.5 - 10. 2 mg/dL [facility] Chloride [Moles/Vol] 100 mmol/L 97 - 10 5 mmol/L [facility] CO2 [Moles/Vol] 30 mmol/L 22 - 30 mmol/L [facility] Creatinine [Mass/Vol] 0.83 mg/dL 0.58 - 0.96 mg/dL [facility] Estimated Glomerular Filtration Rate 77 mL/min/1.73m >=60 mL/min/1.73 m [facility] Glucose [Mass/Vol] 97 mg/dL 74 - 99 mg/dL [facility] Potassium [Moles/Vol] 5.0 mmol/L 3.7 - 5.1 mmol/L [facility] Protein [Mass/Vol] 6.9 g/dL 6.3 - 8.0 g/dL [facility] Sodium [Moles/Vol] 141 mmol/L 136 - 144 mmol/L [facility] Urea nitrogen [Mass/Vol] 9 mg/dL 7 - 21 mg/dL [facility] FERRITIN BLDon 12-29-2023 Ferritin [Mass/Vol] 25.1 ng/mL 14.7 - 205.1 ng/mL [facility] Lipid 1996 panelon Cholesterol [Mass/Vol] 195 mg/dL <200 mg/dL [facility] Cholesterol in HDL [Mass/Vol] 44 mg/dL >39 mg/dL [facility] Cholesterol in LDL [Mass/Vol] 101 mg/dL High <100 mg/dL [facility] Cholesterol in LDL/Cholesterol in HDL [Mass ratio] 2.30 {ratio} <2.54 [facility] Cholesterol in VLDL [Mass/Vol] 50 mg/dL High <30 mg/dL [facility] Cholesterol non HDL [Mass/Vol] 151 mg/dL High <130 mg/dL [facility] Cholesterol.total/Cho lesterol in HDL [Mass ratio] 4.43 {ratio} <5.10 [facility] Fasting Time 4 hrs [facility] Triglyceride [Mass/Vol] 252 mg/dL High <150 mg/dL [facility] Laboratory - Drug toxicology Ordered By: Simone Arreola on 10-06-2023 Amphetamines Ql (U) Negative <1000 ng/mL [facility] Benzodiazepines Ql (U) Negative < 200 ng/mL [facility] Cannabinoids Screen Ql (U) Negative < 50 ng/mL [facility] Cocaine Ql (U) Negative < 300 ng/mL [facility] Opiates Ql (U) Positive < 300 ng/mL [facility] No Panel InformationOrdered By: Simone Arreola on 10-06-2023 MDMA (Ecstasy) Screen Negative < 500 ng/mL [facility] Urine Barbiturates Screen Negative < 200 ng/mL [facility] Urine Drug Screen Comment [facility] Comment on above: CONFIRMATORY TESTING FOR ALL POSITIVE URINE DRUG SCREENRESULTS WILL ONLY BE SENT OUT UPON PHYSICIAN ORDER. VISTA Urine Drug Screen methods provide only preliminaryanalytical test results. A more specific alternate chemicalmethod must be used in order to obtain a confirmedanalytical result. Gas chromatography/mass spectrometery(GC/MS) is the preferred confirmatory method. Clinicalconsideration and professional judgement should be appliedto any drug of abuse test result, particularly whenpreliminary positive results are used. URINE TCA TESTING MUST BE ORDERED SEPARATELY. USE TESTMNEMONIC: [facility] Urine Methadone Screen Negative < 300 ng/mL [facility] Urine phencyclidine (PCP) de tectionOrdered By: Simone Arreola on 10-06-2023 Phencyclidine Ql (U) Negative < 25 ng/mL [facility] CBC W Auto Differential pane l (Bld)on 08-30-2023 Basophils (Bld) [#/Vol] 0.08 10*3/uL <0.11 k/uL [facility] Basophils/100 WBC (Bld) 1.1 % [facility] Differential cell count method Nom (Bld) Auto [facility] Eosinophils (Bld) [#/Vol] 0.12 10*3/uL <0.46 k/uL [facility] Eosinophils/100 WBC (Bld) 1.6 % [facility] Erythrocyte distribution width (RBC) [Ratio] 15.6 % High 11.5 - 15.0 % [facility] Hematocrit (Bld) [Volume fraction] 45.3 % 36.0 - 46.0 % [facility] Hemoglobin (Bld) [Mass/Vol] 14.2 g/dL 11.5 - 15.5 g/dL [facility] Immature granulocytes (Bld) [#/Vol] <0.10 k/uL [facility] Immature granulocytes/100 WBC (Bld) 0.3 % [facility] Lymphocytes (Bld) [#/Vol] 1.82 10*3/uL 1.00 - 4.00 k/uL [facility] Lymphocytes/100 WBC (Bld) 24.7 % [facility] MCH (RBC) [Entitic mass] 27.4 pg 26.0 - 34.0 pg [facility] MCHC (RBC) [Mass/Vol] 31.3 g/dL 30.5 - 36.0 g/dL [facility] MCV (RBC) [Entitic vol] 87.5 fL 80.0 - 100.0 fL [facility] Monocytes (Bld) [#/Vol] 0.84 10*3/uL <0.87 k/uL [facility] Monocytes/100 WBC (Bld) 11.4 % [facility] Neutrophils (Bld) [#/Vol] 4.48 10*3/uL 1.45 - 7.50 k/uL [facility] Neutrophils/100 WBC (Bld) 60.9 % [facility] Nucleated RBC (Bld) [#/Vol] <0.01 k/uL [facility] Nucleated RBC/100 WBC (Bld) [Ratio] 0.0 /100 WBC [facility] Platelet mean volume (Bld) [Entitic vol] 9.2 fL 9.0 - 12.7 fL [facility] Platelets (Bld) [#/Vol] 298 10*3/uL 150 - 400 k/uL [facility] RBC (Bld) [#/Vol] 5.18 10*6/uL 3.90 - 5.2 0 m/uL [facility] WBC (Bld) [#/Vol] 7.36 10*3/uL 3.70 - 11.00 k/uL [facility] CBC panel Auto (Bld)on 04-12 Erythrocyte distribution width (RBC) [Ratio] 19.7 % High 11.5 - 15.0 % [facility] Hematocrit (Bld) [Volume fraction] 37.3 % 36.0 - 46.0 % [facility] Hemoglobin (Bld) [Mass/Vol] 11.2 g/dL Low 11.5 - 15.5 g/dL [facility] MCH (RBC) [Entitic mass] 25.5 pg Low 26.0 - 34.0 pg [facility] MCHC (RBC) [Mass/Vol] 30.0 g/dL Low 30.5 - 36.0 g/dL [facility] MCV (RBC) [Entitic vol] 84.8 fL 80.0 - 100.0 fL [facility] Nucleated RBC (Bld) [#/Vol] <0.01 k/uL [facility] Platelet mean volume (Bld) [Entitic vol] 9.6 fL 9.0 - 12.7 fL [facility] Platelets (Bld) [#/Vol] 342 10*3/uL 150 - 400 k/uL [facility] RBC (Bld) [#/Vol] 4.40 10*6/uL 3.90 - 5.2 0 m/uL [facility] WBC (Bld) [#/Vol] 3.30 10*3/uL Low 3.70 - 11.00 k/uL [facility] Comprehensive metabolic 2000 panelon 04-12-2023 Albumin [Mass/Vol] 3.9 g/dL 3.9 - 4.9 g/dL [facility] ALP [Catalytic activity/Vol] 76 U/L 34 - 123 U/L [facility] ALT [Catalytic activity/Vol] 9 U/L 7 - 38 U/L [facility] Anion gap [Moles/Vol] 5 mmol/L Low 9 - 18 mmol/L [facility] AST [Catalytic activity/Vol] 18 U/L 13 - 35 U/L [facility] Bilirubin [Mass/Vol] 0.4 mg/dL 0.2 - 1 .3 mg/dL [facility] Calcium [Mass/Vol] 9.2 mg/dL 8.5 - 10. 2 mg/dL [facility] Chloride [Moles/Vol] 101 mmol/L 97 - 10 5 mmol/L [facility] CO2 [Moles/Vol] 33 mmol/L High 22 - 30 mmol/L [facility] Creatinine [Mass/Vol] 0.73 mg/dL 0.58 - 0.96 mg/dL [facility] Estimated Glomerular Filtration Rate 90 mL/min/1.73m >=60 mL/min/1.73 m [facility] Glucose [Mass/Vol] 99 mg/dL 74 - 99 mg/dL [facility] Potassium [Moles/Vol] 4.6 mmol/L 3.7 - 5.1 mmol/L [facility] Protein [Mass/Vol] 6.2 g/dL Low 6.3 - 8.0 g/dL [facility] Sodium [Moles/Vol] 139 mmol/L 136 - 144 mmol/L [facility] Urea nitrogen [Mass/Vol] 7 mg/dL 7 - 21 mg/dL [facility] Absolute lymphocyte countOrd ered By: Gustavo Fuentes on 04-05-2023 Lymphocytes Auto (Unsp spec) [#/Vol] 1.11 10*3/uL 0.83-4.51 [facility] Basophil percentageOrdered B y: Gustavo Fuentes on 04-05-2023 Basophils/100 WBC (Bld) 1.4 % 0-1 [facility] Eosinophils/100 WBC (Bld) 4.9 % 0-5 [facility] Neutrophils (Bld) [#/Vol] 1.9 10*3/uL 2.0-7.7 [facility] Neutrophils/100 WBC (Bld) 51.0 % 47-70 [facility] WBC (Bld) [#/Vol] 3.7 10*3/uL 4.4-11.0 [facility] Basophil percentageOrdered B y: Shine Dunham on 04-05-2023 Chloride [Moles/Vol] 107 mmol/L 98-107 [facility] Glucose [Mass/Vol] 83 mg/dL 74-106 [facility] Potassium [Moles/Vol] 3.4 mmol/L 3.5-5.1 [facility] Sodium [Moles/Vol] 143 mmol/L 136-145 [facility] Blood erythrocytes count (nu mber/volume)Ordered By: Gustavo Fuentes on 04-05-2023 RBC (Bld) [#/Vol] 3.75 10*6/uL 4.2-5.4 [facility] Blood hemoglobin measurement (mass/volume)Ordered By: Gustavo Fuentes on 04-05-2023 Hemoglobin (Bld) [Mass/Vol] 9.8 g/dL 12.0-15.0 [facility] Blood lymphocytes/100 leukoc ytesOrdered By: Gustavo Fuentes on 04-05-2023 Lymphocytes/100 WBC (Bld) 30.0 % 19-41 [facility] Blood monocytes/100 leukocyt esOrdered By: Gustavo Fuentes on 04-05-2023 Monocytes/100 WBC (Bld) 12.4 % 0-10 [facility] Blood platelet mean volumeOr dered By: Gustavo Fuentes on 04-05-2023 Platelet mean volume (Bld) [Entitic vol] 9.9 fL 6.2-12.0 [facility] Blood polychromasia detectio n by light microscopyOrdered By: Gustavo Fuentes on 04-05-2023 Polychromasia LM Ql (Bld) 1+ [facility] Determination of erythrocyte mean corpuscular volume (MCV)Ordered By: Gustavo Fuentes on 04-05-2023 MCV (RBC) [Entitic vol] 85.1 fL 81-99 [facility] Hematocrit Auto (Bld) [Volum e fraction]Ordered By: Gustavo Fuentes on 04-05-2023 Hematocrit (Bld) [Volume fraction] 31.9 % 37-47 [facility] INR in Blood by Coagulation assayOrdered By: Shine Dunham on 04-05-2023 INR Coag (Bld) [Relative time] 1.2 {INR} [facility] Laboratory - Chemistry and C hemistry - challengeOrdered By: Shine Dunham on 04-05-2023 CO2 [Moles/Vol] 33.0 mmol/L 21.0-32.0 [facility] Urea nitrogen/Creatinine [Mass ratio] 6.0 mg/mg 10-20 [facility] - CoagulationOrde red By: Shine Dunham on 04-05-2023 aPTT Coag (Bld) [Time] 34.2 s 24.1-36.2 [facility] PT Coag (PPP) [Time] 14.7 s 11.7-14.9 [facility] - Hematology and Cell countsOrdered By: Gustavo Fuentes on 04-05-2023 Anisocytosis Ql (Bld) 2+ [facility] Erythrocyte distribution width (RBC) [Entitic vol] 59.7 fL 35.1-43.9 [facility] Erythrocyte distribution width (RBC) [Ratio] 20.5 % 11.6-14.6 [facility] Immature granulocytes/100 WBC (Bld) 0.300 % 0.0-0.9 [facility] Comment on above: IG% - Immature Granu locytes (promyelocytes, myelocytes and metamyelocytes) > 1% indicates that a LEFT SHIFT is Present. MCH (RBC) [Entitic mass] 26.1 pg 27.0-32.0 [facility] Nucleated RBC/100 WBC (Bld) [Ratio] 0 % 0-5 [facility] MCHC Auto (RBC) [Mass/Vol]Or dered By: Gustavo Fuentes on 04-05-2023 MCHC (RBC) [Mass/Vol] 30.7 g/dL 32-36 [facility] Comment on above: Delta: 28.8 on 04/04 No Panel InformationOrdered By: Shine Dunham on 04-05-2023 Estimated Creatinine Clearance Calc 45.16 ml/min [facility] Estimated GFR (MDRD) Amer 158 mL/min >60 [facility] Comment on above: GFR Calc Estimated GFR (MDRD) Non-Af Amer 130 mL/min >60 [facility] Comment on above: Non- GFR Calc Platelets bldOrdered By: Glenn Fuentes on 04-05-2023 Platelets (Bld) [#/Vol] 166 10*3/uL 150-450 [facility] Serum or plasma calcium acosta urement (mass/volume)Ordered By: Shine Dunham on 04-05-2023 Calcium [Mass/Vol] 8.2 mg/dL 8.5-10.1 [facility] Serum or plasma creatinine m easurement (mass/volume)Ordered By: Shine Dunham on 04-05-2023 Creatinine [Mass/Vol] 0.50 mg/dL 0.55-1.02 [facility] Comment on above: The validity of the calculated GFR & GFRAA in patients over 70 years has not been determined. Clinical correlation is essential. Serum or plasma urea nitroge n measurement (mass/volume)Ordered By: Shine Dunham on 04-05-2023 Urea nitrogen [Mass/Vol] 3 mg/dL 7-18 [facility] Thin prep Papanicolaou smear with manual screeningOrdered By: Shine Dunham on 04-05-2023 Thin prep Papanicolaou smear with manual screening 3 5-15 [facility] Blood manual differential co mment interpretation (narrative result)Ordered By: Gustavo Fuentes on 04-04-2023 Manual differential comment Vijay (Bld) [Interp] SCANNED [facility] Macrocytes detectionOrdered By: Gustavo Fuentes on 04-04-2023 Macrocytes Ql (Bld) 1+ [facility] Basophil percentageOrdered B y: Dr. South on 03-31-2023 Chloride [Moles/Vol] 104 mmol/L 98-107 [facility] Glucose [Mass/Vol] 95 mg/dL 74-106 [facility] Potassium [Moles/Vol] 3.6 mmol/L 3.5-5.1 [facility] Sodium [Moles/Vol] 142 mmol/L 136-145 [facility] Basophil percentageOrdered B y: Micki Jo on 03-31-2023 Chloride [Moles/Vol] 105 mmol/L 98-107 [facility] Glucose [Mass/Vol] 97 mg/dL 74-106 [facility] Potassium [Moles/Vol] 3.6 mmol/L 3.5-5.1 [facility] Sodium [Moles/Vol] 141 mmol/L 136-145 [facility] WBC (Bld) [#/Vol] 4.6 10*3/uL 4.4-11.0 [facility] Blood erythrocytes count (nu mber/volume)Ordered By: Micki Jo on 03-31-2023 RBC (Bld) [#/Vol] 3.15 10*6/uL 4.2-5.4 [facility] Blood hemoglobin measurement (mass/volume)Ordered By: Micki Jo on 03-31-2023 Hemoglobin (Bld) [Mass/Vol] 5.8 g/dL 12.0-15.0 [facility] Comment on above: CRITICAL VALUE VERIF IED. CALLED TO TIANA HAMPTON03/31/23 Kirsten Loja.RESULTS READ BACK BY SAME . Blood platelet mean volumeOr dered By: Micki Jo on 03-31-2023 Platelet mean volume (Bld) [Entitic vol] 9.7 fL 6.2-12.0 [facility] Determination of erythrocyte mean corpuscular volume (MCV)Ordered By: Micki Jo on 03-31-2023 MCV (RBC) [Entitic vol] 76.2 fL 81-99 [facility] Hematocrit Auto (Bld) [Volum e fraction]Ordered By: Micki Jo on 03-31-2023 Hematocrit (Bld) [Volume fraction] 24.0 % 37-47 [facility] INR in Blood by Coagulation assayOrdered By: Dr. South on 03-31-2023 INR Coag (Bld) [Relative time] 1.3 {INR} [facility] Laboratory - Chemistry and C hemistry - challengeOrdered By: Dr. South on 03-31-2023 CO2 [Moles/Vol] 30.0 mmol/L 21.0-32.0 [facility] Urea nitrogen/Creatinine [Mass ratio] 10.9 mg/mg 10- [facility] Laboratory - Chemistry and C hemistry - challengeOrdered By: Micki Jo on 03-31-2023 CO2 [Moles/Vol] 31.0 mmol/L 21.0-32.0 [facility] Natriuretic peptide B (Bld) [Mass/Vol] 157.1 pg/mL 0-100 [facility] Urea nitrogen/Creatinine [Mass ratio] 10.8 mg/mg 07-30 [facility] Laboratory - CoagulationOrde red By: Dr. South on 03-31-2023 aPTT Coag (Bld) [Time] 36.2 s 24.1-36.2 [facility] PT Coag (PPP) [Time] 15.7 s 11.7-14.9 [facility] Laboratory - Hematology and Cell countsOrdered By: Micki Jo on 03-31-2023 Erythrocyte distribution width (RBC) [Entitic vol] 50.4 fL 35.1-43.9 [facility] Erythrocyte distribution width (RBC) [Ratio] 18.6 % 11.6-14.6 [facility] MCH (RBC) [Entitic mass] 18.4 pg 27.0-32.0 [facility] Lower GI hemoglobin IA Ql (S tl)Ordered By: Kina South on 03-31-2023 Stool Occult Blood (MILAN) Positive [facility] Lower GI hemoglobin IA Ql (S tl)Ordered By: Dr. South on 03-31-2023 Stool Occult Blood (MILAN) Positive [facility] MCHC Auto (RBC) [Mass/Vol]Or dered By: Micki Jo on 03-31-2023 MCHC (RBC) [Mass/Vol] 24.2 g/dL 32-36 [facility] No Panel InformationOrdered By: Dr. South on 03-31-2023 Estimated Creatinine Clearance Calc 55.07 ml/min [facility] Estimated GFR (MDRD) Amer 89 mL/min >60 [facility] Comment on above: GFR Calc Estimated GFR (MDRD) Non-Af Amer 74 mL/min >60 [facility] Comment on above: Non- GFR Calc No Panel InformationOrdered By: Micki Jo on 03-31-2023 Estimated GFR (MDRD) Amer 88 mL/min >60 [facility] Comment on above: GFR Calc Estimated GFR (MDRD) Non-Af Amer 73 mL/min >60 [facility] Comment on above: Non- GFR Calc Platelets bldOrdered By: Osvaldo Jo on 03-31-2023 Platelets (Bld) [#/Vol] 212 10*3/uL 150-450 [facility] Review by pathologistOrdered By: Micki Jo on 03-31-2023 Pathologist review Vijay (Unsp spec) [Interp] Kim kumar [facility] Pathologist review Vijay (Unsp spec) [Interp] Reviewed [facility] Comment on above: Previous reported re sult: Kim kumar Edited by: RGOOD on 04/01/23:1343Microcytic anemia.Clinical correlation suggested.Hector Wick D.O. 04/01/23 AMENDED REPORT 04/01/23 1343 PATH REV previously reported as: Kim kumar Serum or plasma calcium acosta urement (mass/volume)Ordered By: Dr. South on 03-31-2023 Calcium [Mass/Vol] 9.0 mg/dL 8.5-10.1 [facility] Serum or plasma calcium acosta urement (mass/volume)Ordered By: Micki Jo on 03-31-2023 Calcium [Mass/Vol] 9.0 mg/dL 8.5-10.1 [facility] Serum or plasma creatinine m easurement (mass/volume)Ordered By: Dr. South on 03-31-2023 Creatinine [Mass/Vol] 0.82 mg/dL 0.55-1.02 [facility] Comment on above: The validity of the calculated GFR & GFRAA in patients over 70 years has not been determined. Clinical correlation is essential. Serum or plasma creatinine m easurement (mass/volume)Ordered By: Micki Jo on 03-31-2023 Creatinine [Mass/Vol] 0.83 mg/dL 0.55-1.02 [facility] Comment on above: The validity of the calculated GFR & GFRAA in patients over 70 years has not been determined. Clinical correlation is essential. Serum or plasma urea nitroge n measurement (mass/volume)Ordered By: Dr. South on 03-31-2023 Urea nitrogen [Mass/Vol] 9 mg/dL 04-27 [facility] Serum or plasma urea nitroge n measurement (mass/volume)Ordered By: Micki Jo on 03-31-2023 Urea nitrogen [Mass/Vol] 9 mg/dL 04-27 [facility] Thin prep Papanicolaou smear with manual screeningOrdered By: Dr. South on 03-31-2023 Thin prep Papanicolaou smear with manual screening 8 02-22 [facility] Thin prep Papanicolaou smear with manual screeningOrdered By: Micki Jo on 03-31-2023 Thin prep Papanicolaou smear with manual screening 5 - [facility] US PELVIS LTDon 03-25-2023 US PELVIS LTD * * *Final Report* * * DATE OF EXAM: Mar 25 2023 2:07PM [facility] 1043 - US PELVIS LTD / PROCEDURE REASON: multiple diagnoses * * * * Physician Interpretation * * * * ULTRASOUND PELVIS SOFT TISSUES Clinical Statement: Left groin pain. Palpable mass of pelvis. Comparison: None. TECHNIQUE: Braxton scale and Doppler images were acquired in the left groin corresponding to the area of palpable concern. FINDINGS: No solid mass, fluid collection, suspicious lymph node or hernia identified. IMPRESSION: No sonographic abnormality identified in the area of concern. Remote Medical Coder: PSCB Transcribe Date/Time: Mar 25 2023 3:55P Dictated by : NIYA KUHN MD This examination was interpreted and the report reviewed and electronically signed by: NIYA KUHN MD on Mar 25 2023 3:55PM EST [id number] Normal [facility] US Pelvis limitedon 03-25-20 IMPRESSION: No sonographic abnormality identified in the area of concern. Remote Medical Coder: YUE Transcribe Date/Time: Mar 25 2023 3:55P Dictated by : NIYA KUHN MD This examination was interpreted and the report reviewed and electronically signed by: NIYA KUHN MD on Mar 25 2023 3:55PM EST [facility] * * *Final Report* * * DATE OF EXAM: Mar 25 2023 2:07PM [facility] [employer] - PELVIS LTD / PROCEDURE REASON: multiple diagnoses * * * * Physician Interpretation * * * * ULTRASOUND PELVIS SOFT TISSUES Clinical Statement: Left groin pain. Palpable mass of pelvis. Comparison: None. TECHNIQUE: Braxton scale and Doppler images were acquired in the left groin corresponding to the area of palpable concern. FINDINGS: No solid mass, fluid collection, suspicious lymph node or hernia identified. [facility] * * *Final Report* * * DATE OF EXAM: Mar 25 2023 2:07PM [facility] [employer] - PELVIS LTD / PROCEDURE REASON: multiple diagnoses * * * * Physician Interpretation * * * * ULTRASOUND PELVIS SOFT TISSUES Clinical Statement: Left groin pain. Palpable mass of pelvis. Comparison: None. TECHNIQUE: Braxton scale and Doppler images were acquired in the left groin corresponding to the area of palpable concern. FINDINGS: No solid mass, fluid collection, suspicious lymph node or hernia identified. IMPRESSION IMPRESSION: No sonographic abnormality identified in the area of concern. Remote Medical Coder: PSCB Transcribe Date/Time: Mar 25 2023 3:55P Dictated by : NIYA KUHN MD This examination was interpreted and the report reviewed and electronically signed by: NIYA KUHN MD on Mar 25 2023 3:55PM EST [facility] Radiology Study observation (narrative) [facility] US Pelvis limitedOrdered By: Ccf Provider on 03-25-2023 [facility] Laboratory - Drug toxicology Ordered By: Dr. Arreola on 02-23-2023 Amphetamines Ql (U) Negative <1000 ng/mL [facility] Benzodiazepines Ql (U) Negative < 200 ng/mL [facility] Cannabinoids Screen Ql (U) Negative < 50 ng/mL [facility] Cocaine Ql (U) Negative < 300 ng/mL [facility] Opiates Ql (U) Positive < 300 ng/mL [facility] No Panel InformationOrdered By: Dr. Arreola on 02-23-2023 MDMA (Ecstasy) Screen Positive < 500 ng/mL [facility] Miscellaneous Test See comment [facility] Comment on above: [id number] 6+OXYCODONE-B UND (ng/mL) DRUG RESULT SCREEN CUTOFF____ Amphetamines,Urine Negative ng/mL 1000 Amphetamine test includes Amphetamine and Methamphetamine.Barbiturates Negative ng/mL 200Benzodiazepines Negative ng/mL 200Cannabinoid Negative ng/mL 20Cocaine (Metab) Negative ng/mL 300Opiates Positive ng/mL 300 Opiates test includes Codeine, Morphine, Hydromorphone, Hydrocodone. Codeine Negative 300 Morphine Negative 300 Hydromorphone Negative 300 Hydrocodone PositiveHydrocodone Conf,MS,UR 371 ng/mL 300Oxycodone/Oxymorphone,Urine Negative ng/mL 300 Test includes Oxydodone and Oxymorphone. TESTING PERFORMED AT [facility]. ORIGINAL REPORT ON FILE IN LAB CONTAINS ADDITIONAL TEST SITE INFORMATION. Urine Barbiturates Screen Negative < 200 ng/mL [facility] Urine Drug Screen Comment [facility] Comment on above: CONFIRMATORY TESTING FOR ALL POSITIVE URINE DRUG SCREENRESULTS WILL ONLY BE SENT OUT UPON PHYSICIAN ORDER. VISTA Urine Drug Screen methods provide only preliminaryanalytical test results. A more specific alternate chemicalmethod must be used in order to obtain a confirmedanalytical result. Gas chromatography/mass spectrometery(GC/MS) is the preferred confirmatory method. Clinicalconsideration and professional judgement should be appliedto any drug of abuse test result, particularly whenpreliminary positive results are used. URINE TCA TESTING MUST BE ORDERED SEPARATELY. USE TESTMNEMONIC: [facility] Urine Methadone Screen Negative < 300 ng/mL [facility] Urine phencyclidine (PCP) de tectionOrdered By: Dr. Arreola on 02-23-2023 Phencyclidine Ql (U) Negative < 25 ng/mL [facility] No Panel Informationon 01-11 [facility] Laboratory - Drug toxicology Ordered By: Dr. Arreola on 12-29-2022 Amphetamines Ql (U) Negative <1000 ng/mL [facility] Benzodiazepines Ql (U) Negative < 200 ng/mL [facility] Cannabinoids Screen Ql (U) Positive < 50 ng/mL [facility] Cocaine Ql (U) Negative < 300 ng/mL [facility] Opiates Ql (U) Positive < 300 ng/mL [facility] No Panel InformationOrdered By: Dr. Arreola on 12-29-2022 MDMA (Ecstasy) Screen Positive < 500 ng/mL [facility] Urine Barbiturates Screen Negative < 200 ng/mL [facility] Urine Drug Screen Comment [facility] Comment on above: CONFIRMATORY TESTING FOR ALL POSITIVE URINE DRUG SCREENRESULTS WILL ONLY BE SENT OUT UPON PHYSICIAN ORDER. VISTA Urine Drug Screen methods provide only preliminaryanalytical test results. A more specific alternate chemicalmethod must be used in order to obtain a confirmedanalytical result. Gas chromatography/mass spectrometery(GC/MS) is the preferred confirmatory method. Clinicalconsideration and professional judgement should be appliedto any drug of abuse test result, particularly whenpreliminary positive results are used. URINE TCA TESTING MUST BE ORDERED SEPARATELY. USE TESTMNEMONIC: [facility] Urine Methadone Screen Negative < 300 ng/mL [facility] Urine phencyclidine (PCP) de tectionOrdered By: Dr. Arreola on 12-29-2022 Phencyclidine Ql (U) Negative < 25 ng/mL [facility] SURGICAL PATHOLOGYon 12-05-2 022 Case Report Surgical Pathology Report Case: [id number] Authorizing Provider: Yeni Ferguson MD Collected: 09/11/2022 11:28 AM Ordering Location: Ambulatory Surgery Received: 09/11/2022 04:43 PM Pathologist: Elpidio Venegas MD Specimen: ANTRUM (STOMACH) BIOPSY, Antral bx h/h [facility] FINAL DIAGNOSIS Antrum, biopsy: - Antral mucosa with no significant diagnostic alteration. - No morphologic evidence of Helicobacter pylori organisms. [facility] Gross Description A. ANTRUM (STOMACH) BIOPSY Received in formalin is one piece of hernandez, soft tissue measuring 0.6 x 0.2 x 0.2 cm. Totally submitted in one cassette. Gross examination performed at [facility], [address] [place], [place] [id number] JT 09/11/2022 10:23 PM [facility] Performing Lab Diagnostic interpretation performed at [facility], [address] [place] [address] CLIA# [id number] Sweatband Separator: Feliberto Sevilla M.D. [facility] COLONOSCOPY DIAGNOSTICon [facility] EGD DIAGNOSTICon 09-11-2022 [facility] HILARY SCREENINGon 07-24-2022 [facility] Laboratory - Drug toxicology on 02-02-2022 Amphetamines Ql (U) Negative [facility] Work Phone: Benzodiazepines Ql (U) Negative [facility] Work Phone: Cannabinoids Screen Ql (U) Negative [facility] Work Phone: Cocaine Ql (U) Negative [facility] Work Phone: Opiates Ql (U) Positive [facility] Work Phone: No Panel Informationon 02-02 MDMA (Ecstasy) Screen Negative [facility] Work Phone: Urine Barbiturates Screen Negative [facility] Work Phone: Urine Drug Screen Comment [facility] Work Phone: Comment on above: CONFIRMATORY TESTING FOR ALL POSITIVE URINE DRUG SCREENRESULTS WILL ONLY BE SENT OUT UPON PHYSICIAN ORDER. VISTA Urine Drug Screen methods provide only preliminaryanalytical test results. A more specific alternate chemicalmethod must be used in order to obtain a confirmedanalytical result. Gas chromatography/mass spectrometery(GC/MS) is the preferred confirmatory method. Clinicalconsideration and professional judgement should be appliedto any drug of abuse test result, particularly whenpreliminary positive results are used. URINE TCA TESTING MUST BE ORDERED SEPARATELY. USE TESTMNEMONIC: [facility] Urine Methadone Screen Negative [facility] Work Phone: Urine phencyclidine (PCP) de tectionon 02-02-2022 Phencyclidine Ql (U) Negative [facility] Work Phone: Basophil percentageon 2021 Chloride [Moles/Vol] 103 mmol/L 98-107 [facility] Work Phone: Glucose [Mass/Vol] 95 mg/dL 74-106 [facility] Work Phone: Potassium [Moles/Vol] 3.8 mmol/L 3.5-5.1 [facility] Work Phone: Sodium [Moles/Vol] 139 mmol/L 136-145 [facility] Work Phone: Laboratory - Chemistry and C hemistry - challengeon 01-08-2022 CO2 [Moles/Vol] 32.0 mmol/L 21.0-32.0 [facility] Work Phone: Free T4 [Mass/Vol] 1.33 ng/dL 0.76-1.46 [facility] Work Phone: Magnesium [Mass/Vol] 1.9 mg/dL 1.6-2.6 [facility] Work Phone: Urea nitrogen/Creatinine [Mass ratio] 7.0 mg/mg 10-20 [facility] Work Phone: No Panel Informationon 01-08 Estimated GFR (MDRD) Amer 85 mL/min >60 [facility] Work Phone: Comment on above: GFR Calc Estimated GFR (MDRD) Non-Af Amer 70 mL/min >60 [facility] Work Phone: Comment on above: Non- GFR Calc Thyroid Stimulating Hormone (TSH) 0.63 uIU/mL 0.358-3.74 [facility] Work Phone: Serum or plasma calcium acosta urement (mass/volume)on 01-08-2022 Calcium [Mass/Vol] 9.0 mg/dL 8.5-10.1 [facility] Work Phone: Serum or plasma creatinine m easurement (mass/volume)on 01-08-2022 Creatinine [Mass/Vol] 0.86 mg/dL 0.55-1.02 [facility] Work Phone: Comment on above: The validity of the calculated GFR & GFRAA in patients over 70 years has not been determined. Clinical correlation is essential. Serum or plasma urea nitroge n measurement (mass/volume)on 01-08-2022 Urea nitrogen [Mass/Vol] 6 mg/dL 7-18 [facility] Work Phone: Thin prep Papanicolaou smear with manual screeningon 01-08-2022 Thin prep Papanicolaou smear with manual screening 4 5-15 [facility] Work Phone: Absolute lymphocyte counton 12-24-2021 Lymphocytes Auto (Unsp spec) [#/Vol] 1.21 10*3/uL 0.83-4.51 [facility] Work Phone: Basophil percentageon 2021 Basophils/100 WBC (Bld) 1.1 % 0-1 [facility] Work Phone: Chloride [Moles/Vol] 105 mmol/L 98-107 [facility] Work Phone: Eosinophils/100 WBC (Bld) 0.6 % 0-5 [facility] Work Phone: Glucose [Mass/Vol] 110 mg/dL 74-106 [facility] Work Phone: Comment on above: Fasting Glucose resu lt from 100 to 125 mg/dL suggests IMPAIRED HOMEOSTASIS per A.D.A. criteria. Neutrophils (Bld) [#/Vol] 2.9 10*3/uL 2.0-7.7 [facility] Work Phone: Neutrophils/100 WBC (Bld) 61.2 % 47-70 [facility] Work Phone: Potassium [Moles/Vol] 3.6 mmol/L 3.5-5.1 [facility] Work Phone: Sodium [Moles/Vol] 140 mmol/L 136-145 [facility] Work Phone: WBC (Bld) [#/Vol] 4.7 10*3/uL 4.4-11.0 [facility] Work Phone: Blood erythrocytes count (nu mber/volume)on 12-24-2021 RBC (Bld) [#/Vol] 4.70 10*6/uL 4.2-5.4 [facility] Work Phone: Blood hemoglobin measurement (mass/volume)on 12-24-2021 Hemoglobin (Bld) [Mass/Vol] 15.3 g/dL 12.0-15.0 [facility] Work Phone: Blood lymphocytes/100 leukoc yteson 12-24-2021 Lymphocytes/100 WBC (Bld) 25.5 % 19-41 [facility] Work Phone: Blood monocytes/100 leukocyt eson 12-24-2021 Monocytes/100 WBC (Bld) 11.4 % 0-10 [facility] Work Phone: Blood platelet mean volumeon 12-24-2021 Platelet mean volume (Bld) [Entitic vol] 9.3 fL 6.2-12.0 [facility] Work Phone: Determination of erythrocyte mean corpuscular volume (MCV)on 12-24-2021 MCV (RBC) [Entitic vol] 93.6 fL 81-99 [facility] Work Phone: Hematocrit Auto (Bld) [Volum e fraction]on 12-24-2021 Hematocrit (Bld) [Volume fraction] 44.0 % 37-47 [facility] Work Phone: Laboratory - Chemistry and C hemistry - challengeon 12-24-2021 CO2 [Moles/Vol] 31.0 mmol/L 21.0-32.0 [facility] Work Phone: Urea nitrogen/Creatinine [Mass ratio] 9.0 mg/mg 10-20 [facility] Work Phone: Laboratory - Hematology and Cell countson 12-24-2021 Erythrocyte distribution width (RBC) [Entitic vol] 42.4 fL 35.1-43.9 [facility] Work Phone: Erythrocyte distribution width (RBC) [Ratio] 12.2 % 11.6-14.6 [facility] Work Phone: Immature granulocytes/100 WBC (Bld) 0.200 % 0.0-0.9 [facility] Work Phone: Comment on above: IG% - Immature Granu locytes (promyelocytes, myelocytes and metamyelocytes) > 1% indicates that a LEFT SHIFT is Present. MCH (RBC) [Entitic mass] 32.6 pg 27.0-32.0 [facility] Work Phone: Nucleated RBC/100 WBC (Bld) [Ratio] 0 % 0-5 [facility] Work Phone: MCHC Auto (RBC) [Mass/Vol]on 12-24-2021 MCHC (RBC) [Mass/Vol] 34.8 g/dL 32-36 [facility] Work Phone: No Panel Informationon 12-24 Estimated Creatinine Clearance Calc 45.78 ml/min [facility] Work Phone: Estimated GFR (MDRD) Amer 96 mL/min >60 [facility] Work Phone: Comment on above: GFR Calc Estimated GFR (MDRD) Non-Af Amer 79 mL/min >60 [facility] Work Phone: Comment on above: Non- GFR Calc Troponin I High Sensitivity 8 pg/mL 3.0-54.0 [facility] Work Phone: Comment on above: Please Note: [place] t Units and Gender Specific Reference Ranges. For more information see Policy Stat Procedure [place] High Sensitivity Troponin (TNIH) and attachments. Platelets bldon 12-24-2021 Platelets (Bld) [#/Vol] 216 10*3/uL 150-450 [facility] Work Phone: Serum or plasma calcium acosta urement (mass/volume)on 12-24-2021 Calcium [Mass/Vol] 8.9 mg/dL 8.5-10.1 [facility] Work Phone: Serum or plasma creatinine m easurement (mass/volume)on 12-24-2021 Creatinine [Mass/Vol] 0.78 mg/dL 0.55-1.02 [facility] Work Phone: Comment on above: The validity of the calculated GFR & GFRAA in patients over 70 years has not been determined. Clinical correlation is essential. Serum or plasma urea nitroge n measurement (mass/volume)on 12-24-2021 Urea nitrogen [Mass/Vol] 7 mg/dL 7-18 [facility] Work Phone: Thin prep Papanicolaou smear with manual screeningon 12-24-2021 Thin prep Papanicolaou smear with manual screening 4 5-15 [facility] Work Phone: CBLon 07-11-2019 CBL . MICRO - Microbiology PROCEDURE: Blood Culture (bacterial) [*1] SOURCE: Blood BODY SITE: COLLECTED DATE/TIME: 07/05/2019 19:52 EDT RECEIVED DATE/TIME: 07/06/2019 15:23 EDT START DATE/TIME: 07/06/2019 15:23 EDT FREE TEXT SOURCE: FINAL REPORTS Final Report [] Verified Date/Time/Personnel: 07/11/2019 16:00 EDT Blood Culture: No Growth at 5 days. PRELIMINARY REPORTS Preliminary Report [] Verified Date/Time/Personnel: 07/06/2019 15:59 EDT Culture has been received in lab and is no growth to date. Routine cultures are held for 5 days. Performing Locations *1: This test was performed at: [address], [address] [place] [address] ([place]) Comment on above: Performed By: #### C BL #### [place] [address] CBLon 07-06-2019 CBL . MICRO - Microbiology PROCEDURE: Blood Culture (bacterial) [*1] SOURCE: Blood BODY SITE: COLLECTED DATE/TIME: 07/05/2019 19:52 EDT RECEIVED DATE/TIME: 07/06/2019 15:23 EDT START DATE/TIME: 07/06/2019 15:23 EDT FREE TEXT SOURCE: PRELIMINARY REPORTS Preliminary Report [] Verified Date/Time/Personnel: 07/06/2019 15:59 EDT Culture has been received in lab and is no growth to date. Routine cultures are held for 5 days. Performing Locations *1: This test was performed at: [facility], [address] [place] [address], [address] [place] [address] ([place]) Comment on above: Performed By: #### C BL #### [place] [address] .Auto Diffon 07-05-2019 Ammonia (P) [Mass/Vol] 0.50 10 3/mcL Normal 0.15-1.00 [facility] ([place]) Comment on above: Performed By: #### C BC ADIFF, ANEU #### [address] [address] #### BMP, GFR #### [place] [address] Basophils (Bld) [#/Vol] 0.10 10 3/mcL Normal 0.00-0.19 [facility] ([place]) Comment on above: Performed By: #### C BC, ADIFF, ANEU #### [address] [address] #### BMP, GFR #### [address] [address] Basophils/100 WBC (Bld) 1.0 % Normal 0.0-2.5 [facility] ([place]) Comment on above: Performed By: #### C BC, ADIFF, ANEU #### [address] [address] #### BMP, GFR #### [address] [address] Eosinophils (Bld) [#/Vol] 0.10 10 3/mcL Normal 0.00-0.40 [facility] ([place]) Comment on above: Performed By: #### C BC, ADIFF, ANEU #### [address] [address] #### BMP, GFR #### [address] [address] Eosinophils/100 WBC (Bld) 1.9 % Normal 0.0-7.0 [facility] ([place]) Comment on above: Performed By: #### C BC, ADIFF, ANEU #### [address] [address] #### BMP, GFR #### [address] [address] Lymphocytes (Bld) [#/Vol] 1.40 10 3/mcL Normal 0.77-3.85 [facility] ([place]) Comment on above: Performed By: #### C BC, ADIFF, ANEU #### [address] [address] #### BMP, GFR #### [address] [address] Lymphocytes/100 WBC (Bld) 22.9 % Normal 10.0-50.0 [facility] ([place]) Comment on above: Performed By: #### C BC, ADIFF, ANEU #### [address] [address] #### BMP, GFR #### [address] [address] Monocytes/100 WBC (Bld) 8.2 % Normal 1.7-13.0 [facility] ([place]) Comment on above: Performed By: #### C BC, ADIFF, ANEU #### [place] [address] [address] #### BMP, GFR #### [address] [address] Neutrophils/100 WBC (Bld) 66.0 % Normal 37.0-80.0 [facility] ([place]) Comment on above: Performed By: #### C BC, ADIFF, ANEU #### [place] [address] [address] #### BMP, GFR #### [address] [address] .GFRon 07-05-2019 GFR Non- 64 ml/min/1.73sqm Normal [facility] ([place]) Comment on above: Result Comment: GFR Population mean for , Non- Americans Ages 20-29 = 116 mL/min/1.73 sq.m. Ages 30-39 = 107 mL/min/1.73 sq.m. Ages 40-49 = 99 mL/min/1.73 sq.m. Ages 50-59 = 93 mL/min/1.73 sq.m. Ages 60-69 = 85 mL/min/1.73 sq.m. Ages 70+ = 75 mL/min/1.73 sq.m. Chronic Kidney Disease: Less than 60 mL/min/1.73 square meters End Stage Renal Disease: Less than 15 mL/min/1.73 square meters Performed By: #### C BC, ADIFF, ANEU #### [place] [address] [address] #### BMP, GFR #### [address] [address] GFR 78 ml/min/1.73sqm Normal [facility] ([place]) Comment on above: Result Comment: GFR Population mean for , Non- Americans Ages 20-29 = 116 mL/min/1.73 sq.m. Ages 30-39 = 107 mL/min/1.73 sq.m. Ages 40-49 = 99 mL/min/1.73 sq.m. Ages 50-59 = 93 mL/min/1.73 sq.m. Ages 60-69 = 85 mL/min/1.73 sq.m. Ages 70+ = 75 mL/min/1.73 sq.m. Chronic Kidney Disease: Less than 60 mL/min/1.73 square meters End Stage Renal Disease: Less than 15 mL/min/1.73 square meters Performed By: #### C BCGENEVIEVEIFF, ANEU #### [place] [address] #### BMP, GFR #### [address] [address] .NEUABSon 07-05-2019 Neutrophils (Bld) [#/Vol] 4.10 10 3/mcL Normal 2.85-6.16 [facility] ([place]) Comment on above: Performed By: #### C KALEY MCBRIDE, ANEU #### [place] [address] #### BMP, GFR #### [address] [address] BMPon 07-05-2019 Calcium [Mass/Vol] 9.2 mg/dL Normal 8.4-10.2 [facility] ([place]) Comment on above: Performed By: #### C KALEY MCBRIDE, ANEU #### [place] [address] #### BMP, GFR #### [address] [address] Chloride [Moles/Vol] 101 mmol/L Normal 98-107 [facility] ([place]) Comment on above: Performed By: #### C BCGENEVIEVEIFF, ANEU #### [place] [address] #### BMP, GFR #### [address] [address] CO2 [Moles/Vol] 30 mmol/L Normal 23-31 [facility] ([place]) Comment on above: Performed By: #### C BC, ADIFF, ANEU #### [address] [address] #### BMP, GFR #### [address] [address] Creatinine [Mass/Vol] 0.89 mg/dL Normal 0.55-1.02 [facility] ([place]) Comment on above: Performed By: #### C BC, ADIFF, ANEU #### [address] [address] #### BMP, GFR #### [address] [address] Electrolyte Balance 8.0 mEq/L Normal [facility] ([place]) Comment on above: Performed By: #### C BC, ADIFF, ANEU #### [address] [address] #### BMP, GFR #### [address] [address] Glucose [Mass/Vol] 111 mg/dL Normal 80-115 [facility] ([place]) Comment on above: Performed By: #### C BC, ADIFF, ANEU #### [address] [address] #### BMP, GFR #### [address] [address] Potassium [Moles/Vol] 3.7 mmol/L Normal 3.5-5.1 [facility] ([place]) Comment on above: Performed By: #### C BC, ADIFF, ANEU #### [address] [address] #### BMP, GFR #### [address] [address] Sodium [Moles/Vol] 139 mmol/L Normal 136-145 [facility] ([place]) Comment on above: Performed By: #### C BC, ADIFF, ANEU #### [address] [address] #### BMP, GFR #### [address] [address] Urea nitrogen [Mass/Vol] 8 mg/dL Normal 7-18 [facility] ([place]) Comment on above: Performed By: #### C GENEVIEVE MCBRIDEIFF, ANEU #### [address] [address] #### BMP, GFR #### [address] [address] Urea nitrogen/Creatinine [Mass ratio] 9 ratio Normal 7-27 [facility] ([place]) Comment on above: Performed By: #### C BC ADIFF, ANEU #### [address] [address] #### BMP, GFR #### [address] [address] CBCon 07-05-2019 Erythrocyte distribution width (RBC) [Ratio] 13.1 % Normal 11.5-14.5 [facility] ([place]) Comment on above: Performed By: #### C KALEY MCBRIDE, ANEU #### [address] [address] #### BMP, GFR #### [address] [address] Hematocrit (Bld) [Volume fraction] 44.6 % Normal 37.0-47.0 [facility] ([place]) Comment on above: Performed By: #### C KALEY MCBRIDE, ANEU #### [address] [address] #### BMP, GFR #### [address] [address] Hemoglobin (Bld) [Mass/Vol] 15.2 G/dL Normal 12.0-16.0 [facility] ([place]) Comment on above: Performed By: #### C BC ADIFF, ANEU #### [address] [address] #### BMP, GFR #### [address] [address] MCH (RBC) [Entitic mass] 33.2 pg High 27.0-31.2 [facility] ([place]) Comment on above: Performed By: #### C BC, GENEVIEVEIFF, ANEU #### [address] [address] #### BMP, GFR #### [address] [address] MCHC (RBC) [Mass/Vol] 34.1 G/dL Normal 33.0-37.0 [facility] ([place]) Comment on above: Performed By: #### C BC, ADIFF, ANEU #### [address] [address] #### BMP, GFR #### [address] [address] MCV (RBC) [Entitic vol] 97.3 fL High 80.0-94.0 [facility] ([place]) Comment on above: Performed By: #### C REED, ADIFF, ANEU #### [address] [address] #### BMP, GFR #### [address] [address] Platelet mean volume (Bld) [Entitic vol] 7.4 fL Normal 7.4-10.4 [facility] ([place]) Comment on above: Performed By: #### C KALEY MCBRIDE, ANEU #### [address] [address] #### BMP, GFR #### [address] [address] Platelets (Bld) [#/Vol] 161 10 3/mcL Normal 130-400 [facility] ([place]) Comment on above: Performed By: #### C BC, ADIFF, ANEU #### [address] [address] #### BMP, GFR #### [address] [address] RBC (Bld) [#/Vol] 4.58 10 6/mcL Normal 4.20-5.40 [facility] ([place]) Comment on above: Performed By: #### C BC, ADIFF, ANEU #### [place] [address] #### BMP, GFR #### [address] [address] WBC (Bld) [#/Vol] 6.20 10 3/mcL Normal 4.60-10.80 [facility] ([place]) Comment on above: Performed By: #### C BC, ADIFF, ANEU #### [address] [address] #### BMP, GFR #### [address] [address] XR WRIST MINIMUM 3 VIEWS LEF Ton 07-05-2019 XR WRIST MINIMUM 3 VIEWS LEFT ORIGINAL XR WRIST 3 VIEWS LEFT CLINICAL STATEMENT: cat bite. COMPARISON: None FINDINGS: No acute fracture or dislocation is identified. The joint spaces are maintained. There is no radiopaque foreign body. Soft tissue swelling is present at the medial wrist. IMPRESSION: No acute osseous abnormality. No radiopaque foreign body. I have personally reviewed the images of this examination and agree with the resident's findings and interpretation. Interpreted By: Phong Tineo MD Preliminary Report By: Jarvis Garcia MD Electronically Signed By: Phong Tineo MD Dictated Date: 07/05/2019 8:28:02 PM Prelim Date: 07/05/2019 8:29:14 PM Sign Date: 07/05/2019 9:37:07 PM Normal [facility] ([place]) Office Visiton 03-19-2017 Documentation of current medications (procedure) Done Invalid Interpretation Code [facility] Work Phone: Protein mass conc yes [facility] Work Phone: Protein mass conc Done [facility] Work Phone: Smoking cessation education (procedure) yes Invalid Interpretation Code [facility] Work Phone: Tobacco smoking status NHIS Unknown [facility] Work Phone: Tobacco smoking status NHIS Current every day smoker [facility] Work Phone: Tobacco use [facility] Current every day smoker Invalid Interpretation Code [facility] Work Phone: Vital Signs Date Time Vital Sign Value Performing Clinician Facility 06-14-2025 14:52-0400 Body height 160 cm Lia Garibay MD Work Phone: [facility] 06-14-2025 14:52-0400 Body mass index (BMI) [Ratio] 28.53 kg/m2 Lia Garibay MD Work Phone: [facility] 06-14-2025 14:52-0400 Body weight 73.03 kg Lia Garibay MD Work Phone: [facility] 06-14-2025 14:52-0400 Diastolic blood pressure 72 mm[Hg] Lia Garibay MD Work Phone: [facility] 06-14-2025 14:52-0400 Heart rate 67 /min Lia Garibay MD Work Phone: [facility] 06-14-2025 14:52-0400 Respiratory rate 18 /min Lia Garibay MD Work Phone: [facility] 06-14-2025 14:52-0400 SaO2% (BldA) [Mass fraction] 93 % Lia Garibay MD Work Phone: [facility] 06-14-2025 14:52-0400 Systolic blood pressure 110 mm[Hg] Lia Garibay MD Work Phone: [facility] 06-14-2025 14:32-0400 Body height 160 cm Pulm Wstr Work Phone: [facility] 06-14-2025 14:32-0400 Body mass index (BMI) [Ratio] 28.53 kg/m2 Pulm Wstr Work Phone: [facility] 06-14-2025 14:32-0400 Body weight 73.03 kg Pulm Wstr Work Phone: [facility] 06-14-2025 14:32-0400 Heart rate 67 /min Pulm Wstr Work Phone: [facility] 06-14-2025 14:32-0400 Respiratory rate 18 /min Pulm Wstr Work Phone: [facility] 06-14-2025 14:32-0400 SaO2% (BldA) [Mass fraction] 93 % Pulm Wstr Work Phone: [facility] 02-14-2025 14:29-0400 Body mass index (BMI) [Ratio] 28.35 kg/m2 Kate Older FINAL INSTALLER INSPECTOR.PUBLIC SERVICE ADMINISTRATOR Work Phone: [facility] 02-14-2025 14:29-0400 Body weight 71.22 kg Kate Older FINAL INSTALLER INSPECTOR.PUBLIC SERVICE ADMINISTRATOR Work Phone: [facility] 02-14-2025 14:29-0400 Diastolic blood pressure 78 mm[Hg] FINAL INSTALLER INSPECTOR.PUBLIC SERVICE ADMINISTRATOR Work Phone: [facility] 02-14-2025 14:29-0400 Heart rate 64 /min Kate Older FINAL INSTALLER INSPECTOR.PUBLIC SERVICE ADMINISTRATOR Work Phone: [facility] 02-14-2025 14:29-0400 Respiratory rate 16 /min Kate Older FINAL INSTALLER INSPECTOR.PUBLIC SERVICE ADMINISTRATOR Work Phone: [facility] 02-14-2025 14:29-0400 SaO2% (BldA) [Mass fraction] 92 % FINAL INSTALLER INSPECTOR.PUBLIC SERVICE ADMINISTRATOR Work Phone: [facility] 02-14-2025 14:29-0400 Systolic blood pressure 120 mm[Hg] FINAL INSTALLER INSPECTOR.PUBLIC SERVICE ADMINISTRATOR Work Phone: [facility] 08-28-2024 08:36-0500 Body mass index (BMI) [Ratio] 28.67 kg/m2 Wojciech [place] FINAL INSTALLER INSPECTOR.PUBLIC SERVICE ADMINISTRATOR Work Phone: [facility] 08-28-2024 08:36-0500 Body weight 72.03 kg Wojciech Carrero FINAL INSTALLER INSPECTOR.PUBLIC SERVICE ADMINISTRATOR Work Phone: [facility] 08-28-2024 08:36-0500 Diastolic blood pressure 70 mm[Hg] Wojciech Alise FINAL INSTALLER INSPECTOR.PUBLIC SERVICE ADMINISTRATOR Work Phone: [facility] 08-28-2024 08:36-0500 Heart rate 62 /min Wojciech Arriagapster FINAL INSTALLER INSPECTOR.PUBLIC SERVICE ADMINISTRATOR Work Phone: [facility] 08-28-2024 08:36-0500 SaO2% (BldA) [Mass fraction] 91 % Wojciech Carrero FINAL INSTALLER INSPECTOR.PUBLIC SERVICE ADMINISTRATOR Work Phone: [facility] 08-28-2024 08:36-0500 Systolic blood pressure 128 mm[Hg] Wojciech Carrero FINAL INSTALLER INSPECTOR.PUBLIC SERVICE ADMINISTRATOR Work Phone: [facility] 08-23-2024 14:50-0500 Body height 158.5 cm Kelley Barrera FINAL INSTALLER INSPECTOR.PUBLIC SERVICE ADMINISTRATOR Work Phone: [facility] 08-23-2024 14:50-0500 Body mass index (BMI) [Ratio] 28.71 kg/m2 Kelley Haury FINAL INSTALLER INSPECTOR.PUBLIC SERVICE ADMINISTRATOR Work Phone: [facility] 08-23-2024 14:50-0500 Body weight 72.12 kg Kelley Haury FINAL INSTALLER INSPECTOR.PUBLIC SERVICE ADMINISTRATOR Work Phone: [facility] 08-23-2024 14:50-0500 Diastolic blood pressure 64 mm[Hg] Kelley Haury FINAL INSTALLER INSPECTOR.PUBLIC SERVICE ADMINISTRATOR Work Phone: [facility] 08-23-2024 14:50-0500 Systolic blood pressure 100 mm[Hg] Kelley Haury FINAL INSTALLER INSPECTOR.PUBLIC SERVICE ADMINISTRATOR Work Phone: [facility] 08-16-2024 15:41-0500 Body mass index (BMI) [Ratio] 27.81 kg/m2 Kate Older FINAL INSTALLER INSPECTOR.PUBLIC SERVICE ADMINISTRATOR Work Phone: [facility] 08-16-2024 15:41-0500 Body weight 71.22 kg Kate Older FINAL INSTALLER INSPECTOR.PUBLIC SERVICE ADMINISTRATOR Work Phone: [facility] 08-16-2024 15:41-0500 Diastolic blood pressure 80 mm[Hg] Kate Older FINAL INSTALLER INSPECTOR.PUBLIC SERVICE ADMINISTRATOR Work Phone: [facility] 08-16-2024 15:41-0500 Heart rate 74 /min Kate Older FINAL INSTALLER INSPECTOR.PUBLIC SERVICE ADMINISTRATOR Work Phone: [facility] 08-16-2024 15:41-0500 Respiratory rate 16 /min Kate Older FINAL INSTALLER INSPECTOR.PUBLIC SERVICE ADMINISTRATOR Work Phone: [facility] 08-16-2024 15:41-0500 Systolic blood pressure 132 mm[Hg] Kate Older FINAL INSTALLER INSPECTOR.PUBLIC SERVICE ADMINISTRATOR Work Phone: [facility] 12-29-2023 13:13-0400 Body weight 77.38 kg Katey Denbow PA-C Work Phone: [facility] 12-29-2023 13:13-0400 Diastolic blood pressure 74 mm[Hg] Katey Denbow PA-C Work Phone: [facility] 12-29-2023 13:13-0400 Heart rate 75 /min Katey Denbow PA-C Work Phone: [facility] 12-29-2023 13:13-0400 Respiratory rate 16 /min Katey Denbow PA-C Work Phone: [facility] 12-29-2023 13:13-0400 SaO2% (BldA) [Mass fraction] 95 % Katey Denbow PA-C Work Phone: [facility] 12-29-2023 13:13-0400 Systolic blood pressure 128 mm[Hg] Katey Denbow PA-C Work Phone: [facility] 08-30-2023 13:49-0500 Body height 160 cm Katey Denbow PA-C Work Phone: [facility] 08-30-2023 13:49-0500 Body temperature 97.11 [degF] Katey Denbow PA-C Work Phone: [facility] 08-30-2023 13:49-0500 Body weight 74.84 kg Katey Denbow PA-C Work Phone: [facility] 08-30-2023 13:49-0500 Diastolic blood pressure 68 mm[Hg] Katey Denbow PA-C Work Phone: [facility] 08-30-2023 13:49-0500 Heart rate 74 /min Katey Denbow PA-C Work Phone: [facility] 08-30-2023 13:49-0500 Respiratory rate 12 /min Katey Denbow PA-C Work Phone: [facility] 08-30-2023 13:49-0500 SaO2% (BldA) [Mass fraction] 95 % Katey Denbow PA-C Work Phone: [facility] 08-30-2023 13:49-0500 Systolic blood pressure 130 mm[Hg] Katey Denbow PA-C Work Phone: [facility] 05-25-2023 13:40-0400 Body height 160 cm Katey Denbow PA-C Work Phone: [facility] 05-25-2023 13:40-0400 Body temperature 97.3 [degF] Katey Denbow PA-C Work Phone: [facility] 05-25-2023 13:40-0400 Body weight 74.84 kg Katey Denbow PA-C Work Phone: [facility] 05-25-2023 13:40-0400 Diastolic blood pressure 70 mm[Hg] Katey Denbow PA-C Work Phone: [facility] 05-25-2023 13:40-0400 Heart rate 61 /min Katey Denbow PA-C Work Phone: [facility] 05-25-2023 13:40-0400 Respiratory rate 16 /min Katey Denbow PA-C Work Phone: [facility] 05-25-2023 13:40-0400 SaO2% (BldA) [Mass fraction] 96 % Katey Denbow PA-C Work Phone: [facility] 05-25-2023 13:40-0400 Systolic blood pressure 136 mm[Hg] Katey Denbow PA-C Work Phone: [facility] 05-12-2023 08:46-0400 Body weight 74.39 kg Haritha Shay FINAL INSTALLER INSPECTOR.PUBLIC SERVICE ADMINISTRATOR Work Phone: [facility] 05-12-2023 08:46-0400 Diastolic blood pressure 64 mm[Hg] Haritha Shay FINAL INSTALLER INSPECTOR.PUBLIC SERVICE ADMINISTRATOR Work Phone: [facility] 05-12-2023 08:46-0400 Heart rate 81 /min Haritha Shay FINAL INSTALLER INSPECTOR.PUBLIC SERVICE ADMINISTRATOR Work Phone: [facility] 05-12-2023 08:46-0400 SaO2% (BldA) [Mass fraction] 96 % Haritha Shay FINAL INSTALLER INSPECTOR.PUBLIC SERVICE ADMINISTRATOR Work Phone: [facility] 05-12-2023 08:46-0400 Systolic blood pressure 110 mm[Hg] Haritha Shay FINAL INSTALLER INSPECTOR.PUBLIC SERVICE ADMINISTRATOR Work Phone: [facility] 05-11-2023 16:02-0400 Body temperature 98.4 [degF] Bailey Athy PA-C Work Phone: [facility] 05-11-2023 16:02-0400 Body weight 74.39 kg Bailey Athy PA-C Work Phone: [facility] 05-11-2023 16:02-0400 Diastolic blood pressure 68 mm[Hg] Bailey Athy PA-C Work Phone: [facility] 05-11-2023 16:02-0400 Heart rate 88 /min Bailey Athy PA-C Work Phone: [facility] 05-11-2023 16:02-0400 Respiratory rate 18 /min Bailey Athy PA-C Work Phone: [facility] 05-11-2023 16:02-0400 SaO2% (BldA) [Mass fraction] 94 % Bailey Athy PA-C Work Phone: [facility] 05-11-2023 16:02-0400 Systolic blood pressure 122 mm[Hg] Bailey Athy PA-C Work Phone: [facility] 05-11-2023 15:17-0400 Body height 160.[address] Brook Horner Work Phone: [facility] 05-11-2023 15:17-0400 Body mass index (BMI) [Ratio] 28.8 kg/m2 Dr. Brook Horner Work Phone: [facility] 05-11-2023 15:17-0400 Body weight 73.[address] Brook Horner Work Phone: [facility] 05-11-2023 15:17-0400 Diastolic blood pressure 70 mm[Hg] Dr. Brook Horner Work Phone: 4(757)777-836624 [address] 05-11-2023 15:17-0400 Heart rate 76 /min Dr. Brook Horner Work Phone: [facility] 05-11-2023 15:17-0400 Respiratory rate 18 /min Dr. Brook Horner Work Phone: [facility] 05-11-2023 15:17-0400 SaO2% (BldA) [Mass fraction] 92 % Dr. Brook Horner Work Phone: [facility] 05-11-2023 15:17-0400 Systolic blood pressure 107 mm[Hg] Dr. Brook Horner Work Phone: [facility] 04-10-2023 11:31-0400 Body temperature 97.5 [degF] Shira Pagan MD Work Phone: [facility] 04-10-2023 11:31-0400 Body weight 78.02 kg Shira Pagan MD Work Phone: [facility] 04-10-2023 11:31-0400 Diastolic blood pressure 63 mm[Hg] Shira Pagan MD Work Phone: [facility] 04-10-2023 11:31-0400 Heart rate 56 /min Shira Pagna MD Work Phone: [facility] 04-10-2023 11:31-0400 Respiratory rate 18 /min Shira Pagan MD Work Phone: [facility] 04-10-2023 11:31-0400 SaO2% (BldA) [Mass fraction] 92 % Shira Pagan MD Work Phone: [facility] 04-10-2023 11:31-0400 Systolic blood pressure 122 mm[Hg] Shira Pagan MD Work Phone: [facility] 04-05-2023 15:19-0400 Body temperature 98.9 [degF] Dr. Brook Horner Work Phone: [facility] 04-05-2023 15:19-0400 Diastolic blood pressure 82 mm[Hg] Dr. Brook Horner Work Phone: 9(677)[phone] [place] [address] 04-05-2023 15:19-0400 Heart rate 66 /min Dr. Brook Horner Work Phone: 9(115)944-062876 [place] [address] 04-05-2023 15:19-0400 Respiratory rate 18 /min Dr. Brook Horner Work Phone: [facility] 04-05-2023 15:19-0400 SaO2% (BldA) [Mass fraction] 92 % Dr. Brook Horner Work Phone: 7(655)090-744119 [place] [address] 04-05-2023 15:19-0400 Systolic blood pressure 128 mm[Hg] Dr. Brook Horner Work Phone: 6(348)[phone] [place] [address] 04-05-2023 12:16-0400 Body weight 76.[address] Brook Horner Work Phone: 9(565)[phone] [place] [address] 04-05-2023 11:00-0400 Inhaled oxygen flow rate 4 L/min Dr. Brook Horner Work Phone: 8(275)[phone] [place] [address] 04-05-2023 02:15-0400 Body mass index (BMI) [Ratio] 29.9 kg/m2 Dr. Brook Horner Work Phone: 1(641)348-323719 [place] [address] 03-31-2023 20:16-0400 Body temperature 97.7 [degF] [facility] 03-31-2023 20:16-0400 Diastolic blood pressure 51 mm[Hg] [facility] 03-31-2023 20:16-0400 Heart rate 80 /min [facility] 03-31-2023 20:16-0400 Respiratory rate 24 /min [facility] 03-31-2023 20:16-0400 SaO2% (BldA) [Mass fraction] 97 % [facility] 03-31-2023 20:16-0400 Systolic blood pressure 143 mm[Hg] [facility] 03-31-2023 17:47-0400 Body height 160.02 cm [facility] 03-31-2023 17:47-0400 Body mass index (BMI) [Ratio] 30.2 kg/m2 [facility] 03-31-2023 17:47-0400 Body weight 77.3 kg [facility] 01-04-2023 15:26-0400 Body weight 75.3 kg Brook Horner MD Work Phone: [facility] 01-04-2023 15:26-0400 Diastolic blood pressure 60 mm[Hg] Brook Horner MD Work Phone: [facility] 01-04-2023 15:26-0400 Heart rate 72 /min Brook Horner MD Work Phone: [facility] 01-04-2023 15:26-0400 SaO2% (BldA) [Mass fraction] 95 % Brook Horner MD Work Phone: [facility] 01-04-2023 15:26-0400 Systolic blood pressure 112 mm[Hg] Brook Horner MD Work Phone: [facility] 09-18-2022 15:00-0500 Body temperature 98.01 [degF] Yeni Ferguson MD Work Phone: [facility] 09-18-2022 15:00-0500 Body weight 74.57 kg Yeni Ferguson MD Work Phone: [facility] 09-18-2022 15:00-0500 Heart rate 76 /min Yeni Ferguson MD Work Phone: [facility] 09-18-2022 15:00-0500 SaO2% (BldA) [Mass fraction] 97 % Yeni Ferguson MD Work Phone: [facility] 09-11-2022 12:23-0500 Diastolic blood pressure 58 mm[Hg] Yeni Ferguson MD Work Phone: [facility] 09-11-2022 12:23-0500 Heart rate 67 /min Yeni Ferguson MD Work Phone: [facility] 09-11-2022 12:23-0500 Respiratory rate 16 /min Yeni Ferguson MD Work Phone: [facility] 09-11-2022 12:23-0500 SaO2% (BldA) [Mass fraction] 93 % Yeni Ferguson MD Work Phone: [facility] 09-11-2022 12:23-0500 Systolic blood pressure 128 mm[Hg] Yeni Ferguson MD Work Phone: [facility] 09-11-2022 11:12-0500 Body temperature 97.7 [degF] Yeni Ferguson MD Work Phone: [facility] 09-11-2022 11:12-0500 Body weight 74.5 kg Yeni Ferguson MD Work Phone: [facility] 07-24-2022 12:53-0400 Body height 160 cm Talia Hart APRN.PUBLIC SERVICE ADMINISTRATOR Work Phone: [facility] 07-24-2022 12:53-0400 Body weight 73.94 kg Talia Hart APRN.PUBLIC SERVICE ADMINISTRATOR Work Phone: [facility] 07-24-2022 12:53-0400 Diastolic blood pressure 68 mm[Hg] Talia Hart APRN.PUBLIC SERVICE ADMINISTRATOR Work Phone: [facility] 07-24-2022 12:53-0400 Systolic blood pressure 102 mm[Hg] Talia Hart APRN.PUBLIC SERVICE ADMINISTRATOR Work Phone: [facility] 06-26-2022 13:12-0400 Body weight 72.58 kg Kate Cervantes APRN.PUBLIC SERVICE ADMINISTRATOR Work Phone: [facility] 06-26-2022 13:12-0400 Diastolic blood pressure 66 mm[Hg] Kate Older FINAL INSTALLER INSPECTOR.PUBLIC SERVICE ADMINISTRATOR Work Phone: [facility] 06-26-2022 13:12-0400 Heart rate 68 /min Kate Older FINAL INSTALLER INSPECTOR.PUBLIC SERVICE ADMINISTRATOR Work Phone: [facility] 06-26-2022 13:12-0400 Respiratory rate 16 /min Kate Older FINAL INSTALLER INSPECTOR.PUBLIC SERVICE ADMINISTRATOR Work Phone: [facility] 06-26-2022 13:12-0400 Systolic blood pressure 112 mm[Hg] Kate Older FINAL INSTALLER INSPECTOR.PUBLIC SERVICE ADMINISTRATOR Work Phone: [facility] 01-08-2022 15:33-0400 Body height 160.[address] Brook Horner Work Phone: [facility] Work Phone: 01-08-2022 15:33-0400 Body mass index (BMI) [Ratio] 28 kg/m2 Dr. Brook Horner Work Phone: [facility] Work Phone: 01-08-2022 15:33-0400 Body weight 71.[address] Brook Horner Work Phone: [facility] Work Phone: 01-08-2022 15:33-0400 Diastolic blood pressure 68 mm[Hg] Dr. Brook Horner Work Phone: [facility] Work Phone: 01-08-2022 15:33-0400 Heart rate 69 /min Dr. Brook Horner Work Phone: [facility] Work Phone: 01-08-2022 15:33-0400 Respiratory rate 18 /min Dr. Brook Horner Work Phone: [facility] Work Phone: 01-08-2022 15:33-0400 SaO2% (BldA) [Mass fraction] 95 % Dr. Brook Horner Work Phone: [facility] Work Phone: 01-08-2022 15:33-0400 Systolic blood pressure 119 mm[Hg] Dr. Brook Horner Work Phone: [facility] Work Phone: 12-24-2021 16:07-0400 Respiratory rate 16 /min Dr. Brook Horner Work Phone: [facility] Work Phone: 12-24-2021 16:07-0400 SaO2% (BldA) [Mass fraction] 99 % Dr. Brook Horner Work Phone: [facility] Work Phone: 12-24-2021 15:27-0400 Heart rate 86 /min Dr. Brook Horner Work Phone: [facility] Work Phone: 12-24-2021 14:21-0400 Body mass index (BMI) [Ratio] 28 kg/m2 Dr. Brook Horner Work Phone: [facility] Work Phone: 12-24-2021 14:21-0400 Body temperature 98.5 [degF] Dr. Brook Horner Work Phone: [facility] Work Phone: 12-24-2021 14:21-0400 Body weight 71.[address] Brook Horner Work Phone: [facility] Work Phone: 12-24-2021 14:21-0400 Diastolic blood pressure 75 mm[Hg] Dr. Brook Horner Work Phone: [facility] Work Phone: 12-24-2021 14:21-0400 Systolic blood pressure 141 mm[Hg] Dr. Brook Horner Work Phone: [facility] Work Phone: 03-19-2017 14:59-0400 BMI (Body Mass Index) 26.85 kg/m2 [facility] Work Phone: 03-19-2017 14:59-0400 Height 161.29 cm [facility] Work Phone: 03-19-2017 14:59-0400 Weight 69.85 kg [facility] Work Phone: Encounters Encounter Date Encounter Type Care Provider Facility Start: 08-21-2025 End: 08-21-2025 ambulatory [facility] Facility:[facility] Start: 08-21-2025 Patient encounter procedure [facility] Start: 08-16-2025 End: 08-16-2025 [facility] Facility:[facility] Start: 06-14-2025 End: 06-14-2025 Patient encounter procedure Lia Garibay MD Work Phone: Pulmonary Medicine Comment on above: COPD, moderate (HCC) (Primary Dx); Cigarette smoker; Centrilobular emphysema (HCC) Start: 06-14-2025 End: 06-14-2025 ambulatory [facility] Work Phone: [facility] Comment on above: Spirometry Start: 06-14-2025 End: 06-14-2025 Patient encounter procedure [facility] Work Phone: [facility] Start: 06-08-2025 End: 06-12-2025 Refill Kate Cervantes FINAL INSTALLER INSPECTOR.PUBLIC SERVICE ADMINISTRATOR Work Phone: [facility] [place] Comment on above: Med Change Request Start: 06-01-2025 End: 06-01-2025 Orders Only Lia Garibay MD Work Phone: Pulmonary Medicine Comment on above: Chronic obstructive pulmonary disease, unspecified COPD type (HCC) (Primary Dx) Start: 05-17-2025 End: 05-17-2025 ambulatory KATE CERVANTES Facility:[facility] Start: 02-16-2025 End: 04-18-2025 Follow-up encounter Kate Cervantes APRN.PUBLIC SERVICE ADMINISTRATOR Work Phone: [facility] [place] Start: 02-14-2025 End: 02-14-2025 ambulatory KATE CERVANTES Facility:[facility] Start: 02-14-2025 End: 02-14-2025 Office outpatient visit 15 minutes Kate Cervantes APRN.PUBLIC SERVICE ADMINISTRATOR Work Phone: Internal [facility] [place] Comment on above: Paroxysmal A-fib (HC C) (Primary Dx); Mixed hyperlipidemia; 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 Brook Horner MD Work Phone: [facility] Work Phone: Start: 12-06-2024 End: 12-06-[address] Simone Arreola MD -Laboratory Work Phone: Start: 12-06-2024 End: 12-06-2024 ambulatory Simone Arreola Facility:[facility] Start: 10-23-2024 End: 10-23-[address] Simone Arreola MD -[facility] Work Phone: Start: 10-23-2024 End: 10-23-2024 ambulatory Simone Arreola Facility:[facility] Start: 10-09-2024 End: 10-09-2024 ambulatory KELLEY BARRERA Facility:[facility] Start: 10-09-2024 End: 10-09-2024 Subsequent hospital visit by physician [facility] Work Phone: Radiology Comment on above: Encounter for screen ing for osteoporosis [Z13.820] Start: 09-15-2024 End: 09-15-2024 ambulatory Simone Arreola Facility:[facility] Start: 09-15-2024 End: 09-15-[address] Simone Arreola MD -Physical Therapy Work Phone: Start: 09-14-2024 End: 09-14-2024 Orders Only Wojciech Carrero APRN.PUBLIC SERVICE ADMINISTRATOR Work Phone: Pulmonary Medicine Comment on above: Encounter for screen ing for lung cancer (Primary Dx); Tobacco abuse Start: 09-13-2024 End: 09-13-2024 ambulatory WOJCIECH CARRERO Facility:[facility] Start: 09-13-2024 End: 09-13-2024 Subsequent hospital visit by physician [facility] (I-Stat) Work Phone: Cat Scan Comment on above: Encounter for screen ing for lung cancer [Z12.2] Start: 08-30-2024 End: 08-30-[address] [facility] Facility:[facility] Start: 08-28-2024 End: 08-28-2024 ambulatory WOJCIECH CARRERO Facility:[facility] Start: 08-28-2024 End: 08-28-2024 Patient encounter procedure Wojciech Carrero APRN.PUBLIC SERVICE ADMINISTRATOR Work Phone: Pulmonary Medicine Comment on above: Encounter for screen ing for lung cancer (Primary Dx); Tobacco abuse Start: 08-23-2024 End: 08-23-2024 Patient encounter procedure Kelley Barrera APRN.PUBLIC SERVICE ADMINISTRATOR Work Phone: OB/Gynecology Comment on above: Encounter for gyneco logical examination (general) (routine) without abnormal findings (Primary Dx); Encounter for screening mammogram for breast cancer; Dense breast tissue; Encounter for screening for osteoporosis Start: 08-23-2024 End: 08-23-2024 Patient encounter status Kelley Barrera APRN.PUBLIC SERVICE ADMINISTRATOR Work Phone: [facility] Start: 08-23-2024 End: 08-23-2024 ambulatory KELLEY BARRERA Facility:[facility] Start: 08-23-2024 End: 08-23-2024 Subsequent hospital visit by physician Screen Mammo [facility] Mammogram Comment on above: Encounter for screen ing mammogram for malignant neoplasm of breast [Z12.31] Start: 08-16-2024 End: 08-16-2024 Patient encounter procedure Kate Cervantes APRN.CNP Work Phone: Internal [facility] [place] Comment on above: Medicare annual well ness visit, subsequent (Primary Dx); Moderate episode of recurrent major depressive disorder (HCC); Anxiety; Insomnia, unspecified type; 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; Paroxysmal A-fib (HCC); Prediabetes; Mixed hyperlipidemia; Encounter for screening for lung cancer; Tobacco abuse; Encounter for immunization; Need for influenza vaccination Start: 07-26-2024 End: 07-26-2024 [facility] Start: 05-31-2024 End: 05-31-2024 [facility] Start: 05-31-2024 End: 05-31-2024 [facility] Comment on above: Population Health Na vigation Outreach ([facility] WORKBENCH MARK ANTHONY/IND) Start: 02-03-2024 Refill Kate Cervantes APRN, .CNP Work Phone: Internal [facility] Comment on above: Refill Request Start: 12-29-2023 End: 12-29-2023 Patient encounter procedure Katey Dudley PA-C Work Phone: [facility] Comment on above: Iron deficiency (Kristy flaquita Dx); Gastroesophageal reflux disease without esophagitis; 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; Mixed hyperlipidemia; Anxiety with depression Start: 12-17-2023 ambulatory Valeria ARRIETA WELDON Start: 12-17-2023 Patient encounter procedure Valeria Cleveland MA [facility] Comment on above: Population Health Na vigation Outreach ([facility] Annual Wellness Visit /) Start: 10-06-2023 End: 10-06-2023 ambulatory [facility] Work Phone: Start: 10-06-2023 End: 10-06-2023 Patient encounter procedure [facility] Work Phone: Start: 08-30-2023 End: 08-30-2023 Patient encounter procedure Katey Dudley PA-C Work Phone: Internal Medicine [place] Comment on above: Mixed hyperlipidemia (Primary Dx); Anemia, unspecified type; Insomnia, unspecified type; Spondylolisthesis, unspecified spinal region; Moderate episode of recurrent major depressive disorder (HCC); Anxiety; Encounter for immunization; Prediabetes Start: 08-23-2023 Documentation procedure Mammog joaquín Coordinator [facility] Start: 08-23-2023 Letter encounter Mammography Coordinator [facility] Department Start: 08-20-2023 End: 08-20-2023 Subsequent hospital visit by physician Screen Mammo [facility] Mammogram Comment on above: Encounter for screen ing mammogram for breast cancer [Z12.31] Start: 08-17-2023 ambulatory Brook Barfield Work Phone: Internal Medicine [facility] Start: 08-14-2023 Refill Ktae Cervantes APRN, .CNP Work Phone: Internal [facility] Comment on above: Refill Request Start: 08-01-2023 Refill Kate Cervantes APRN, .CNP Work Phone: Internal [facility] Comment on above: Refill Request Start: 07-22-2023 Refill Brook Barfield Work Phone: Internal [facility] Comment on above: Refill Request (need s today) Start: 07-19-2023 End: 07-19-[address] Brook Horner Work Phone: [facility] Work Phone: Start: 07-19-2023 End: 07-19-[address] Brook Horner Work Phone: [facility]-Radiology, [facility] Work Phone: Start: 05-25-2023 End: 05-25-2023 Patient encounter procedure Katey Dudley PA-C Work Phone: [facility] [place] Comment on above: Hypoxia (Primary Dx) ; Anemia, unspecified type Start: 05-24-2023 Refill Kate Cervantes FINAL INSTALLER INSPECTOR .PUBLIC SERVICE ADMINISTRATOR Work Phone: Internal [facility] [place] Comment on above: Refill Request Start: 05-17-2023 Telephone encounter Haritha Montgomery er FINAL INSTALLER INSPECTOR.PUBLIC SERVICE ADMINISTRATOR Work Phone: Internal Medicine [place] Comment on above: Results Start: 05-14-2023 Telephone encounter Kate Cervantes FINAL INSTALLER INSPECTOR.PUBLIC SERVICE ADMINISTRATOR Work Phone: Internal [facility] [place] Comment on above: Orders Start: 05-12-2023 End: 05-12-2023 Patient encounter procedure Haritha Omerr FINAL INSTALLER INSPECTOR.PUBLIC SERVICE ADMINISTRATOR Work Phone: Internal [facility] [place] Comment on above: Rash and nonspecific skin eruption (Primary Dx); Yeast dermatitis Start: 05-11-2023 End: 05-11-2023 Patient encounter procedure Bailey Pennington PA-C Work Phone: [facility] Comment on above: Yeast infection of t he skin (Primary Dx); Rash Start: 05-11-2023 End: 05-11-[address] Brook Horner Work Phone: [facility] Work Phone: Start: 05-03-2023 Telephone encounter Brook nelson MD Work Phone: Internal Medicine [place] Comment on above: Patient Update; Resu lts Start: 04-10-2023 End: 04-10-2023 Office outpatient visit 25 minutes Shira Pagan MD Work Phone: [facility] [place] Comment on above: Anemia, unspecified type (Primary Dx); Gastrointestinal hemorrhage, unspecified gastrointestinal hemorrhage type; AVM (arteriovenous malformation) of colon with hemorrhage; Encounter for long-term current use of medication; Bilateral leg edema; Hypokalemia; Major depressive disorder, remission status unspecified, unspecified whether recurrent; Paroxysmal A-fib (HCC) Start: 04-05-2023 Non-patient / Non-visit Dr. John Horner Work Phone: [facility] Start: 04-05-2023 End: 04-05-2023 Non-patient / Non-visit Dr. Brook Horner Work Phone: [facility] Work Phone: Start: 04-04-2023 Non-patient / Non-visit Dr. John Horner Work Phone: [facility] Work Phone: Start: 04-03-2023 Non-patient / Non-visit Dr. John Horner Work Phone: [facility] Work Phone: Start: 04-03-2023 Non-patient / Non-visit Dr. John Horner Work Phone: [facility] Start: 04-02-2023 Non-patient / Non-visit Dr. John Horner Work Phone: [facility] Start: 04-02-2023 Non-patient / Non-visit Dr. John Horner Work Phone: [facility] Work Phone: Start: 04-02-2023 End: 04-02-2023 Non-patient / Non-visit Dr. Brook Horner Work Phone: [facility] Work Phone: Start: 04-01-2023 Non-patient / Non-visit Dr. John Horner Work Phone: [facility] Work Phone: Start: 04-01-2023 End: 04-01-2023 Non-patient / Non-visit Dr. Brook Horner Work Phone: [facility] Start: 03-31-2023 Non-patient / Non-visit Dr. John Horner Work Phone: [facility] Start: 03-31-2023 End: 04-05-2023 Evaluation and management of inpatient [facility] Start: 03-31-2023 End: 03-31-2023 Patient encounter procedure [facility], [facility] Start: 03-26-2023 Telephone encounter Kate Cervantes APRN.CNP Work Phone: Internal [facility] [place] Comment on above: Results Start: 03-25-2023 ambulatory KATE CERVANTES Facility:1 [id number] Start: 03-25-2023 End: 03-25-2023 Subsequent hospital visit by physician [facility] Comment on above: Left groin pain [R10 .32] Start: 02-23-2023 End: 02-23-2023 Patient encounter procedure [facility] Start: 01-18-2023 Telephone encounter Brook nelson MD Work Phone: Internal [facility] [place] Comment on above: Results Start: 01-11-2023 End: 01-11-2023 Subsequent hospital visit by physician [facility] Work Phone: Radiology Comment on above: Right upper quadrant abdominal tenderness without rebound tenderness [R10.811] Start: 01-06-2023 Telephone encounter Brook nelson MD Work Phone: Internal [facility] [place] Comment on above: Results Start: 01-04-2023 End: 01-04-2023 Patient encounter procedure Brook Horner MD Work Phone: Internal [facility] [place] Comment on above: Bloating (Primary Dx ); Weight gain; Excessive gas; Insomnia, unspecified type; Tobacco abuse; Right upper quadrant abdominal tenderness without rebound tenderness Start: 12-29-2022 End: 12-29-2022 ambulatory [facility] Work Phone: Start: 12-29-2022 End: 12-29-2022 Patient encounter procedure [facility] Start: 09-18-2022 End: 09-18-2022 Patient encounter procedure Yeni Ferguson MD Work Phone: General Surgery Comment on above: Iron deficiency anem ia, unspecified iron deficiency anemia type; Angiodysplasia of colon without bleeding Start: 09-11-2022 End: 09-11-2022 Subsequent hospital visit by physician Yeni Ferguson MD Work Phone: Ambulatory Surgery Comment on above: Iron deficiency anem ia, unspecified iron deficiency anemia type [D50.9] Start: 09-04-2022 Refill Brook Barfield Work Phone: Internal [facility] [place] Comment on above: Refill Request Start: 08-05-2022 Telephone encounter Anisha larsen PA-C Work Phone: General Surgery Comment on above: 09/11 colon/egd asc Start: 07-31-2022 Telephone encounter Kate Cervantes APRN.CNP Work Phone: Internal [facility] [place] Comment on above: Results Start: 07-30-2022 End: 07-30-2022 Nursing evaluation of patient and report Mi Nurse Work Phone: Family [facility] [place] Comment on above: Need for vaccination (Primary Dx) Start: 07-27-2022 Telephone encounter Kate Cervantes APRN.CNP Work Phone: Internal [facility] [place] Comment on above: Results Start: 07-24-2022 Documentation procedure Mammog joaquín Coordinator [facility] Start: 07-24-2022 Letter encounter Mammography Coordinator [facility] Department Start: 07-24-2022 End: 07-24-2022 Patient encounter procedure Talia Hart APRN.CNP Work Phone: OB/Gynecology Comment on above: Encounter for routin e gynecologic examination in Medicare patient (Primary Dx); Encounter for screening mammogram for breast cancer Start: 07-24-2022 End: 07-24-2022 Patient encounter status Talia Hart APRN.CNP Work Phone: OB/Gynecology Start: 07-24-2022 End: 07-24-2022 Subsequent hospital visit by physician Screen Mammo [facility] Mammogram Comment on above: Screening mammogram for breast cancer [Z12.31] Start: 07-16-2022 Telephone encounter Kate Cervantes APRN.CNP Work Phone: Internal [facility] [place] Comment on above: Results Start: 06-26-2022 End: 06-26-2022 Patient encounter procedure Kate Cervantes APRN.CNP Work Phone: Internal [facility] [place] Comment on above: Medicare annual well ness visit, subsequent (Primary Dx); Gastroesophageal reflux disease, unspecified whether esophagitis present; Insomnia, unspecified type; 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 Brook Horner Work Phone: [facility] Start: 01-30-2022 End: 01-30-[address] Brook Hroner Work Phone: [facility]Pulmonary Services/Neurology Start: 01-08-2022 End: 01-08-[address] Brook Horner Work Phone: [facility] Start: 01-01-2022 Non-patient / Non-visit Dr. John Horner Work Phone: [facility] Start: 01-01-2022 End: 01-01-[address] Brook Horner Work Phone: [facility]-Cardiovasc[facility] lar Services Start: 12-24-2021 End: 12-24-2021 Emergency department patient visit Dr. Brook Horner Work Phone: [facility]-Emergency Department Start: 12-24-2021 End: 12-24-[address] Brook Horner Work Phone: [facility] Start: 01-03-2010 End: 03-05-2021 Patient encounter status Kate Cervantes FINAL INSTALLER INSPECTOR.PUBLIC SERVICE ADMINISTRATOR Work Phone: [facility] Procedures Date Procedure Procedure Detail Performing Clinician Start: 06-14-2025 Brncdilat rspse spmtry pre&post-brncdilat admn Lia Garibay MD Work Phone: Start: 10-23-2024 MRI of lumbar spine Dr. Brook Horner MD Work Phone: Start: 10-09-2024 BD DXA TRABECULAR BONE SCORE (TBS) Kelley Barrera FINAL INSTALLER INSPECTOR.PUBLIC SERVICE ADMINISTRATOR Work Phone: Start: 10-09-2024 Dxa bone density study 1/> sites axial skel Kelley Barrera FINAL INSTALLER INSPECTOR.PUBLIC SERVICE ADMINISTRATOR Work Phone: Start: 09-13-2024 CT LUNG SCREEN WO NEYMAR Quirozgustavo Carrero FINAL INSTALLER INSPECTOR.PUBLIC SERVICE ADMINISTRATOR Work Phone: Start: 08-30-2024 Lipid 1996 panel - Serum or Plasma Ct (I -Stat) Work Phone: Start: 08-16-2024 Hemoglobin A1c/Hemoglobin.total in Blood Kate Cervantes FINAL INSTALLER INSPECTOR.PUBLIC SERVICE ADMINISTRATOR Work Phone: Start: 12-29-2023 Lipid 1996 panel - Serum or Plasma Rache l Denbow PA-C Work Phone: Start: 08-30-2023 INFLUENZA VACCINE, PRSV FREE, AGE 65+ YR, HIGH DOSE, QUADRIVALENT (FLUZONE HIGH-DOSE) Katey Denbow PA-C Work Phone: Start: 08-26-2023 Lipid 1996 panel - Serum or Plasma Rache l Denbow PA-C Work Phone: Start: 07-19-2023 Radiography of thoracic spine Dr. Brook Horner Work Phone: Start: 04-05-[address] Brook Horner Work Phone: Start: 04-03-2023 Computed tomography angiography of abdominal and/or pelvic blood vessel Dr. Brook Horner Work Phone: Start: 04-02-[address] Brook Horner Work Phone: Start: 04-01-[address] Brook cole Work Phone: Start: 03-31-2023 Plain chest X-ray Start: 03-31-2023 Plain chest X-ray Dr. Brook Horner Work Phone: Start: 03-31-2023 Measurement of occult blood in stool specimen using immunoassay Start: 03-25-2023 Us pelvic nonobstetric image dcmtn limited/f/u Kate Older FINAL INSTALLER INSPECTOR.PUBLIC SERVICE ADMINISTRATOR Work Phone: Start: 01-11-2023 Us abdominal real time w/image limited Brook Horner MD Work Phone: Start: 09-11-2022 Level iv surg pathology gross&microscopic exam Yeni Ferguson MD Work Phone: Start: 09-11-2022 Esophagogastroduodenoscopy transoral diagnostic Anisha Lindsey PA-C Work Phone: Start: 09-11-2022 Colonoscopy flx dx w/collj spec when pfrmd nAisha Lindsey PA-C Work Phone: Start: 09-11-2022 Colonoscopy Yeni Ferguson MD Work Phone: Start: 07-24-2022 End: 07-24-2022 Mammography Natalie Older FINAL INSTALLER INSPECTOR.PUBLIC SERVICE ADMINISTRATOR Work Phone: Start: 07-02-2022 Lipid 1996 panel - Serum or Plasma Neftaly Horner MD Work Phone: Start: 06-26-2022 INFLUENZA SEASONAL QUADRIVALENT HIGH DOSE AGE 65+ Kate Older FINAL INSTALLER INSPECTOR.PUBLIC SERVICE ADMINISTRATOR Work Phone: Start: 01-01-2022 Radionuclide imaging of perfusion of myocardium under exercise stress Dr. Brook Horner Work Phone: Start: 12-24-2021 Plain chest X-ray Dr. Brook Horner Work Phone: Start: 09-19-2020 Mammography Brook Horner MD Work Phone: Start: 12-19-2018 Colonoscopy Brook Horner MD Work Phone: Plan of Treatment Date Care Activity Detail Author Start: 09-11-2032 Colonoscopy COLONOSCOPY [facility] Start: 09-11-2032 COLORECTAL CANCER SCREENING COLORECTAL CANCER SCREENING [facility] Start: 2030 RSV Vaccine (1 - 1-dose 75+ series) RSV Vaccine (1 - 1-dose 75+ series) [facility] Start: 08-30-2029 Lipid panel Lipid Screening [facility] Start: 07-04-2029 Urine microalbumin profile [facility] Start: 12-28-2028 Lipid panel Lipid Screening [facility] Start: 12-19-2028 Colonoscopy COLONOSCOPY [facility] Start: 12-19-2028 COLORECTAL CANCER SCREENING COLORECTAL CANCER SCREENING [facility] Start: 08-26-2028 Lipid 1996 panel - Serum or Plasma Lipid Screening [facility] Start: 08-26-2028 Lipid panel Lipid Screening [facility] Start: 02-15-2028 Diabetes Screening Diabetes Screening [facility] Start: 08-30-2027 Diabetes Screening Diabetes Screening [facility] Start: 08-16-2027 Diabetes Screening Diabetes Screening [facility] Start: 07-02-2027 Lipid 1996 panel - Serum or Plasma Lipid Screening [facility] Start: 07-02-2027 LIPID SCREEN LIPID SCREEN [facility] Start: 12-28-2026 Diabetes Screening Diabetes Screening [facility] Start: 08-26-2026 Diabetes Screening Diabetes Screening [facility] Start: 05-17-2026 Annual PCP Team Chronic Disease Visit Annual PCP Team Chronic Disease Visit [facility] Start: 05-11-2026 DIABETES SCREEN DIABETES SCREEN [facility] Start: 05-11-2026 Diabetes Screening Diabetes Screening [facility] Start: 04-12-2026 DIABETES SCREEN DIABETES SCREEN [facility] Start: 03-04-2026 LIPID SCREEN LIPID SCREEN [facility] Start: 02-14-2026 Annual PCP Team Chronic Disease Visit Annual PCP Team Chronic Disease Visit [facility] Start: 09-21-2025 End: 09-21-2025 Patient encounter procedure 09/21/2025 11:30 AM EST Office Visit Pulmonary Medicine [address] [place] [address] Hope Strong APRN.PUBLIC SERVICE ADMINISTRATOR [address] [place] [address] 3 mth follow up Pulmonary Medicine Comment on above: 3 mth follow up Start: 09-13-2025 Screening for malignant neoplasm of lung Lung Cancer Screening [facility] Start: 09-11-2025 Colonoscopy COLONOSCOPY [facility] Start: 09-11-2025 COLORECTAL CANCER SCREENING COLORECTAL CANCER SCREENING [facility] Start: 09-11-2025 Screening for malignant neoplasm of colon [facility] Start: 08-30-2025 Hepatitis B surface antibody level LDL Cholesterol [facility] Start: 08-24-2025 End: 08-24-2025 Patient encounter procedure 08/24/2025 2:30 PM EST Appointment Mammogram [address] [place] [address] Encounter for screening mammogram for breast cancer [Z12.31]; Dense breast tissue [R92.30] Mammogram Comment on above: Encounter for screening mammogram for br east cancer [Z12.31]; Dense breast tissue [R92.30] Start: 08-23-2025 Screening for malignant neoplasm of breast Mammogram Screening [facility] Start: 08-21-2025 End: 08-21-2025 Patient encounter procedure 08/21/2025 2:20 PM EST Office Visit [facility] [place] [address] [place] [address] Brook Horner MD [address] [place] [address] medicare wellness [facility] [place] Comment on above: medicare wellness Start: 08-16-2025 Annual PCP Team Chronic Disease Visit Annual PCP Team Chronic Disease Visit [facility] Start: 08-16-2025 Covid-19 Vaccine ( season) Covid-19 Vaccine ( season) [facility] Comment on above: Postponed from 06/11/2024 (Declined at t his time) Start: 07-02-2025 DIABETES SCREEN DIABETES SCREEN [facility] Start: 06-14-2025 End: 06-14-2025 Patient encounter procedure 06/14/2025 3:15 PM EDT Office Visit Pulmonary Medicine [address] [place] [address] Lia Garibay MD [address] [place] [address] Low oxygen saturation [R79.81] Pulmonary Medicine Comment on above: Low oxygen saturation [R79.81] Start: 06-14-2025 End: 06-14-2025 ambulatory [facility] Comment on above: Emphysema Start: 06-11-2025 Influenza vaccination [facility] Start: 05-17-2025 End: 05-17-2025 Patient encounter procedure 05/17/2025 2:20 PM EDT Office Visit [facility] [place] [address] [facility] [place] [address] Kate Cervantes APRN.PUBLIC SERVICE ADMINISTRATOR [address] [place] [address] 3 month follow up [facility] [place] Comment on above: 3 month follow up Start: 02-14-2025 End: 02-14-2025 Patient encounter procedure 02/14/2025 2:20 PM EDT Office Visit [facility] [place] [address] [place] [address] Kate Cervantes, FINAL INSTALLER INSPECTOR.PUBLIC SERVICE ADMINISTRATOR [address] [place] [address] 6 month follow up [facility] [place] Comment on above: 6 month follow up Start: 02-14-2025 End: 05-16-2025 Basic metabolic 2000 panel - Serum or Plasma [facility] Work Phone: Comment on above: Expected: 02/14/2025, Expires: Start: 12-28-2024 Annual PCP Team Chronic Disease Visit Annual PCP Team Chronic Disease Visit [facility] Start: 12-28-2024 Hepatitis B surface antibody level LDL Cholesterol [facility] Start: 01-01-2025 Medicare Advantage Annual Wellness Visit Medicare Advantage Annual Wellness Visit [facility] Start: 10-09-2024 End: 10-09-2024 Patient encounter procedure 10/09/2024 2:15 PM EST Appointment Radiology [address] [place] [id number] Encounter for screening for osteoporosis [Z13.820] Radiology Comment on above: Encounter for screening for osteoporosis [Z13.820] Start: 09-13-2024 End: 09-13-2024 Patient encounter procedure 09/13/2024 11:40 AM EST Appointment Cat Scan [address] [place] [address] LUNG SCREENING [facility] Comment on above: LUNG SCREENING Start: 08-30-2024 Annual PCP Team Chronic Disease Visit Annual PCP Team Chronic Disease Visit [facility] Start: 08-30-2024 End: 11-29-2024 CBC W Auto Differential panel - Blood COMPLETE BLOOD COUNT AND DIFFERENTIAL Lab Routine Prediabetes 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 Paroxysmal A-fib (HCC) Expected: 08/30/2024 (Approximate), Expires: 11/29/2024 [facility] Work Phone: Comment on above: Expected: 08/30/2024 (Approximate), Expi res: 11/29/2024 Start: 08-28-2024 End: 08-28-2024 Patient encounter procedure 08/28/2024 8:30 AM EST Office Visit Pulmonary Medicine [address] [place] [address] Wojciech Carrero APRN.PUBLIC SERVICE ADMINISTRATOR [address] [place] [address] Encounter for screening for lung cancer [Z12.2] Pulmonary Medicine Comment on above: Encounter for screening for lung cancer [Z12.2] Start: 08-26-2024 Hepatitis B surface antibody level LDL Cholesterol [facility] Start: 08-23-2024 End: 08-23-2024 Patient encounter procedure Mammogram Comment on above: Encounter for screening mammogram for ma lignant neoplasm of breast [Z12.31] annual Start: 08-20-2024 Mammography Mammogram Screening [facility] Start: 08-20-2024 Screening for malignant neoplasm of breast Mammogram Screening [facility] Start: 08-16-2024 End: 11-15-2024 Comprehensive metabolic 2000 panel - Serum or Plasma COMPREHENSIVE METABOLIC PANEL Lab Routine Mixed hyperlipidemia Prediabetes 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 Paroxysmal A-fib (HCC) Expected: 08/16/2024, Expires: 11/15/2024 [facility] Comment on above: Expected: 08/16/2024, Expires: 5 Start: 08-16-2024 End: 11-15-2024 Lipid 1996 panel - Serum or Plasma LIPID PANEL BASIC Lab Routine Mixed hyperlipidemia Expected: 08/16/2024, Expires: 11/15/2024 [facility] Comment on above: Expected: 08/16/2024, Expires: Start: 06-11-2024 Covid-19 Vaccine () Covid-19 Vaccine () [facility] Start: 06-11-2024 Influenza [facility] Start: 05-25-2024 ANNUAL PCP TEAM CHRONIC DISEASE VISIT ANNUAL PCP TEAM CHRONIC DISEASE VISIT [facility] Start: 05-12-2024 ANNUAL PCP TEAM CHRONIC DISEASE VISIT ANNUAL PCP TEAM CHRONIC DISEASE VISIT [facility] Start: 04-10-2024 ANNUAL PCP TEAM CHRONIC DISEASE VISIT ANNUAL PCP TEAM CHRONIC DISEASE VISIT [facility] Start: 03-30-2024 End: 03-30-2024 Patient encounter procedure 03/30/2024 2:20 PM EDT Office Visit [facility] Medicine [place] [address] [place] [address] Kate Cervantes APRN.PUBLIC SERVICE ADMINISTRATOR [address] [place] [address] 3 month follow up GERD, f/u labs [facility] [place] Comment on above: 3 month follow up GERD, f/u labs Start: 03-04-2024 ANNUAL PCP TEAM CHRONIC DISEASE VISIT ANNUAL PCP TEAM CHRONIC DISEASE VISIT [facility] Start: 03-04-2024 DIABETES SCREEN DIABETES SCREEN [facility] Start: 01-05-2024 ANNUAL PCP TEAM CHRONIC DISEASE VISIT ANNUAL PCP TEAM CHRONIC DISEASE VISIT [facility] Start: 10-11-2023 Advance Directive Discussion Advance Directive Discussion [facility] Start: 10-06-2023 [facility] Start: 08-30-2023 End: 11-29-2023 Ferritin [Mass/volume] in Serum or Plasma [facility] Work Phone: Comment on above: Expected: 08/30/2023, Expires: 4 Start: 08-30-2023 End: 11-29-2023 Iron and Iron binding capacity panel - Serum or Plasma [facility] Work Phone: Comment on above: Expected: 08/30/2023, Expires: 4 Start: 08-17-2023 End: 11-16-2023 Hemoglobin A1c in Blood HGB A1C Lab Routine Medication management Expected: 08/17/2023, Expires: 11/16/2023 [facility] Work Phone: Comment on above: Expected: 08/17/2023, Expires: 4 Start: 08-17-2023 End: 11-16-2023 Lipid 1996 panel - Serum or Plasma LIPID PANEL BASIC Lab Routine Hyperlipidemia Expected: 08/17/2023, Expires: 11/16/2023 [facility] Work Phone: Comment on above: Expected: 08/17/2023, Expires: 4 Start: 07-24-2023 Mammography [facility] Start: 07-23-2023 FECAL OCCULT BLOOD FECAL OCCULT BLOOD [facility] Start: 07-23-2023 Screening for malignant neoplasm of colon Fecal Occult Blood [facility] Start: 07-02-2023 Hepatitis B surface antibody level LDL CHOLESTEROL [facility] Start: 06-26-2023 ANNUAL PCP TEAM CHRONIC DISEASE VISIT ANNUAL PCP TEAM CHRONIC DISEASE VISIT [facility] Start: 06-26-2023 COVID-19 VACCINE (3 - Booster for Moderna series) COVID-19 VACCINE (3 - Booster for Moderna series) [facility] Comment on above: Postponed from 02/03/2022 (Declined at t his time) Postponed from 10/31 (Declined at this time) Start: 06-26-2023 HEPATITIS C SCREENING HEPATITIS C SCREENING [facility] Comment on above: Postponed from 1973 (Declined at t his time) Start: 06-26-2023 PNEUMOCOCCAL: 65+ (2 - PCV) PNEUMOCOCCAL: 65+ (2 - PCV) [facility] Comment on above: Postponed from 07/26/2016 (Declined at t his time) Start: 06-26-2023 SHINGRIX VACCINE (1 of 2) SHINGRIX VACCINE (1 of 2) [facility] Comment on above: Postponed from 2005 (Declined at t his time) Start: 06-11-2023 Covid-19 Vaccine (2022- season) Covid-19 Vaccine ( season) [facility] Start: 06-11-2023 Influenza vaccination [facility] Start: 05-25-2023 COVID-19 VACCINE (4 - Moderna series) COVID-19 VACCINE (4 - Moderna series) [facility] Start: 05-06-2023 End: 07-06-2023 CBC W Auto Differential panel - Blood CBC + DIFF Lab Routine Encounter for therapeutic drug monitoring Anemia, unspecified type Gastrointestinal hemorrhage, unspecified gastrointestinal hemorrhage type Expected: 05/06/2023, Expires: 07/06/2023 [facility] Work Phone: Comment on above: Expected: 05/06/2023, Expires: 3 Start: 05-06-2023 End: 07-06-2023 Comprehensive metabolic 2000 panel - Serum or Plasma COMP METABOLIC PANEL Lab Routine Encounter for therapeutic drug monitoring Gastrointestinal hemorrhage, unspecified gastrointestinal hemorrhage type Expected: 05/06/2023, Expires: 07/06/2023 [facility] Work Phone: Comment on above: Expected: 05/06/2023, Expires: 3 Start: 05-06-2023 End: 07-06-2023 Ferritin [Mass/volume] in Serum or Plasma FERRITIN BLD Lab Routine Encounter for therapeutic drug monitoring Anemia, unspecified type Gastrointestinal hemorrhage, unspecified gastrointestinal hemorrhage type Expected: 05/06/2023, Expires: 07/06/2023 [facility] Work Phone: Comment on above: Expected: 05/06/2023, Expires: 3 Start: 05-06-2023 End: 07-06-2023 Iron and Iron binding capacity panel - Serum or Plasma IRON + TIBC Lab Routine Encounter for therapeutic drug monitoring Anemia, unspecified type Gastrointestinal hemorrhage, unspecified gastrointestinal hemorrhage type Expected: 05/06/2023, Expires: 07/06/2023 [facility] Work Phone: Comment on above: Expected: 05/06/2023, Expires: 3 Start: 04-05-2023 Patient discharge [facility] Start: 04-04-2023 Administration of blood product [facility] Start: 04-03-2023 Administration of blood product [facility] Start: 04-02-2023 [facility] Start: 04-01-2023 Application of intermittent pneumatic compression device [facility] Start: 03-31-2023 Catheterization of vein [facility] Start: 03-31-2023 Following clinical pathway protocol [facility] Start: 03-31-2023 Assessment of risk of venous thromboembolism [facility] Start: 03-31-2023 Catheterization of vein [facility] Start: 03-31-2023 Insertion of catheter into peripheral vein [facility] Start: 03-31-2023 Measuring intake and output [facility] Start: 03-31-2023 Oxygen therapy [facility] Start: 03-31-2023 Providing care according to standard [facility] Start: 03-31-2023 Provision of activity privileges [facility] Start: 03-31-2023 Referral to gastroenterology service [facility] Start: 03-31-2023 [facility] Start: 03-31-2023 Verification routine [facility] Start: 03-31-2023 Admission procedure [facility] Start: 03-31-2023 Administration of blood product [facility] Start: 03-31-2023 Leukocyte reduced red blood cells [facility] Start: 03-31-2023 End: 04-01-2023 [facility] Start: 03-31-2023 Plain chest X-ray Chest PA and Lateral [facility] Start: 03-31-2023 Patient referral to dietitian [facility] Start: 01-04-2023 End: 03-06-2023 Helicobacter pylori IgG Ab [Presence] in Serum or Plasma by Immunoassay [facility] Work Phone: Comment on above: Expected: 01/04/2023, Expires: 3 Start: 01-04-2023 End: 03-06-2023 Thyrotropin [Units/volume] in Serum or Plasma [facility] Work Phone: Comment on above: Expected: 01/04/2023, Expires: 3 Start: 12-29-2022 Procedure [facility] Start: 10-11-2022 ADVANCE DIRECTIVE DISCUSSION ADVANCE DIRECTIVE DISCUSSION [facility] Start: 07-27-2022 End: 09-26-2022 CBC W Auto Differential panel - Blood CBC + DIFF Lab Routine Anemia, unspecified type Expected: 07/27/2022, Expires: 09/26/2022 [facility] Work Phone: Comment on above: Expected: 07/27/2022, Expires: 2 Start: 06-26-2022 End: 08-26-2022 25-hydroxyvitamin D3 [Mass/volume] in Serum or Plasma VITAMIN D 25 HYDROXY Lab Routine Vitamin D deficiency Expected: 06/26/2022, Expires: 08/26/2022 [facility] Work Phone: Comment on above: Expected: 06/26/2022, Expires: 2 Start: 06-26-2022 End: 08-26-2022 CBC W Auto Differential panel - Blood CBC + DIFF Lab Routine Current use of fci anticoagulation Prediabetes Expected: 06/26/2022, Expires: 08/26/2022 [facility] Work Phone: Comment on above: Expected: 06/26/2022, Expires: 2 Start: 06-26-2022 End: 08-26-2022 Comprehensive metabolic 2000 panel - Serum or Plasma COMP METABOLIC PANEL Lab Routine 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 Prediabetes Expected: 06/26/2022, Expires: 08/26/2022 [facility] Work Phone: Comment on above: Expected: 06/26/2022, Expires: 2 Start: 06-26-2022 End: 08-26-2022 Hemoglobin A1c in Blood HGB A1C Lab Routine Prediabetes Expected: 06/26/2022, Expires: 08/26/2022 [facility] Work Phone: Comment on above: Expected: 06/26/2022, Expires: 2 Start: 06-26-2022 End: 08-26-2022 Lipid 1996 panel - Serum or Plasma LIPID PANEL BASIC Lab Routine 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 Expected: 06/26/2022, Expires: 08/26/2022 [facility] Work Phone: Comment on above: Expected: 06/26/2022, Expires: 2 Start: 06-20-2022 ANNUAL PCP TEAM CHRONIC DISEASE VISIT ANNUAL PCP TEAM CHRONIC DISEASE VISIT [facility] Start: 06-11-2022 Influenza vaccination INFLUENZA (#1) [facility] Start: 03-04-2022 Hepatitis B surface antibody level LDL CHOLESTEROL [facility] Start: 02-03-2022 COVID-19 VACCINE (3 - Booster for Moderna series) COVID-19 VACCINE (3 - Booster for Moderna series) [facility] Start: 10-11-2021 ADVANCE DIRECTIVE DISCUSSION ADVANCE DIRECTIVE DISCUSSION [facility] Start: 09-19-2021 Mammography MAMMOGRAM [facility] Start: 03-19-2017 End: 03-19-2017 Appointment Appointment [facility] Work Phone: Start: 03-19-2017 End: 03-19-2017 X-ray exam of shoulder X-Ray, Shoulder [facility] Work Phone: Start: 07-26-2016 PNEUMOCOCCAL: 65+ (2 - PCV) PNEUMOCOCCAL: 65+ (2 - PCV) [facility] Start: 2015 RSV Vaccine (1 - 1-dose 60+ series) RSV Vaccine (1 - 1-dose 60+ series) [facility] Start: 2015 RSV Vaccine (1 - Risk 60-74 years 1-dose series) RSV Vaccine (1 - Risk 60-74 years 1-dose series) [facility] Start: 2005 Influenza vaccination LUNG CANCER SCREENING [facility] Start: 2005 Screening for malignant neoplasm of lung Lung Cancer Screening [facility] Start: 2005 SHINGRIX VACCINE (1 of 2) SHINGRIX VACCINE (1 of 2) [facility] Start: 2000 COLOGUARD (FIT-DNA) COLOGUARD (FIT-DNA) [facility] Start: [address] COLONOGRAPHY [facility] Start: 2000 FECAL OCCULT BLOOD FECAL OCCULT BLOOD [facility] Start: 2000 Screening for malignant neoplasm of colon [facility] Start: 2000 SIGMOIDOSCOPY SIGMOIDOSCOPY [facility] Start: 1973 HEPATITIS C SCREENING HEPATITIS C SCREENING [facility] Start: 1973 Hepatitis C screening Hepatitis C Screening [facility] End: 09-22-2025 BD DXA TRABECULAR BONE SCORE (TBS) BD DXA TRABECULAR BONE SCORE (TBS) Radiology Routine Encounter for screening for osteoporosis 1 Occurrences starting 08/23/2024 until 09/22/2025 [facility] Comment on above: 1 Occurrences starting 08/23/2024 until 09/22/2025 End: 08-05-2023 COLONOSCOPY DIAGNOSTIC COLONOSCOPY DIAGNOSTIC Endoscopy Routine Iron deficiency anemia, unspecified iron deficiency anemia type Positive fecal occult blood test 1 Occurrences starting 08/05/2022 until 08/05/2023 [facility] Work Phone: Comment on above: 1 Occurrences starting 08/05/2022 until 08/05/2023 End: 09-27-2025 CT Chest for screening WO contrast CT LUNG SCREEN WO IVCON Radiology Routine Encounter for screening for lung cancer Tobacco abuse 1 Occurrences starting 08/28/2024 until 09/27/2025 [facility] Work Phone: Comment on above: 1 Occurrences starting 08/28/2024 until 09/27/2025 End: 10-14-2025 CT Chest for screening WO contrast CT LUNG SCREEN WO IVCON Radiology Routine Encounter for screening for lung cancer Tobacco abuse 1 Occurrences starting 09/14/2024 until 10/14/2025 [facility] Work Phone: Comment on above: 1 Occurrences starting 09/14/2024 until 10/14/2025 End: 09-22-2025 DBT Breast - bilateral screening HILARY SCREENING W [facility] Radiology Routine Encounter for screening mammogram for breast cancer Dense breast tissue 1 Occurrences starting 08/23/2024 until 09/22/2025 [facility] Work Phone: Comment on above: 1 Occurrences starting 08/23/2024 until 09/22/2025 DBT Breast - bilater al screening HILARY SCREENING [facility] Radiology Routine Encounter for screening mammogram for malignant neoplasm of breast 08/23/2024 2:47 PM EST [facility] Work Phone: End: 09-22-2025 DXA Skeletal system.axial Views for bone density DXA-AXIAL SKELETON Radiology Routine Encounter for screening for osteoporosis 1 Occurrences starting 08/23/2024 until 09/22/2025 [facility] Comment on above: 1 Occurrences starting 08/23/2024 until 09/22/2025 End: 08-05-2023 EGD DIAGNOSTIC EGD DIAGNOSTIC Endoscopy Routine Iron deficiency anemia, unspecified iron deficiency anemia type Positive fecal occult blood test 1 Occurrences starting 08/05/2022 until 08/05/2023 [facility] Work Phone: Comment on above: 1 Occurrences starting 08/05/2022 until 08/05/2023 Hemoglobin.gastroint estin al.lower [Presence] in Stool by Immunoassay FECAL OCCULT BLOOD TEST Lab Routine Anemia, unspecified type Ordered: 07/16/2022 [facility] Work Phone: Comment on above: Ordered: 07/16/2022 End: 07-01-2026 LUNG DIFFUSION CAPACITY (DLCO) LUNG DIFFUSION CAPACITY (DLCO) PFT Routine Chronic obstructive pulmonary disease, unspecified COPD type (HCC) 1 Occurrences starting 06/01/2025 until 07/01/2026 [facility] Comment on above: 1 Occurrences starting 06/01/2025 until 07/01/2026 LUNG DIFFUSION CAPAC ITY (DLCO) LUNG DIFFUSION CAPACITY (DLCO) PFT Routine Chronic obstructive pulmonary disease, unspecified COPD type (HCC) 06/14/2025 2:10 PM EDT [facility] Work Phone: HILARY SCREENING HILARY SCREENING Ra diology Routine Encounter for screening mammogram for breast cancer 08/20/2023 2:50 PM EST [facility] Work Phone: OXIMETRY - NOCTURNAL OXIMETRY - NOCTURNAL Procedures Routine COPD, moderate (HCC) Ordered: 06/14/2025 [facility] Work Phone: Comment on above: Ordered: 06/14/2025 Patient Education ED Palpitations [facility] Work Phone: [facility] Work Phone: End: 08-23-2023 Screening mammography bi 2-view breast inc cad HILARY SCREENING Radiology Routine Encounter for screening mammogram for breast cancer 1 Occurrences starting 07/24/2022 until 08/23/2023 [facility] Work Phone: Comment on above: 1 Occurrences starting 07/24/2022 until 08/23/2023 End: 07-01-2026 SPIROMETRY WITH DILATOR IF OBSTRUCTED SPIROMETRY WITH DILATOR IF OBSTRUCTED PFT Routine Chronic obstructive pulmonary disease, unspecified COPD type (HCC) 1 Occurrences starting 06/01/2025 until 07/01/2026 [facility] Work Phone: Comment on above: 1 Occurrences starting 06/01/2025 until 07/01/2026 SPIROMETRY WITH DILA TOR IF OBSTRUCTED SPIROMETRY WITH DILATOR IF OBSTRUCTED PFT Routine Chronic obstructive pulmonary disease, unspecified COPD type (HCC) 06/14/2025 2:10 PM EDT [facility] Work Phone: End: 02-03-2024 US ABD RIGHT UPPER QUADRANT US ABD RIGHT UPPER QUADRANT Radiology Routine Right upper quadrant abdominal tenderness without rebound tenderness 1 Occurrences starting 01/04/2023 until 02/03/2024 [facility] Work Phone: Comment on above: 1 Occurrences starting 01/04/2023 until 02/03/2024 [facility] Immun[facility] Immunization Date Immunization Notes Care Provider Yvon brunner 08-16-2024 influenza, high dose seasonal, preservative-free Kate Cervantes FINAL INSTALLER INSPECTOR.PUBLIC SERVICE ADMINISTRATOR Work Phone: [facility] 08-16-2024 influenza virus vacc ine, unspecified formulation Kate Older FINAL INSTALLER INSPECTOR.PUBLIC SERVICE ADMINISTRATOR Work Phone: [facility] 08-30-2023 influenza (HD-IIV4) vaccine, age 65+ yr, high dose, quadrivalent, PF (FLUZONE HIGH-DOSE) Katey Dudley PA-C Work Phone: [facility] Work Phone: 08-30-2023 influenza virus vacc ine, unspecified formulation Jonna Chester [facility] 07-30-2022 pneumococcal (PCV20) vaccine, 20 valent (PREVNAR 20) Sd Nurse Work Phone: [facility] Work Phone: 07-30-2022 pneumococcal Conjuga te, unspecified formulation Sd Nurse Work Phone: [facility] Work Phone: 06-26-2022 Influenza, high dose seasonal Dr. Brook Horner MD Work Phone: [facility] 06-26-2022 influenza, high dose seasonal, preservative-free Dr. Brook Horner Work Phone: [facility] 06-26-2022 influenza, high-dose , quadrivalent vaccine (FLUZONE HIGH DOSE QUADRIVALENT) Kate Cervantes FINAL INSTALLER INSPECTOR.PUBLIC SERVICE ADMINISTRATOR Work Phone: [facility] 06-26-2022 influenza virus vacc ine, unspecified formulation Brook Horner MD Work Phone: [facility] 09-24-2021 influenza, high-dose , quadrivalent vaccine (FLUZONE HIGH DOSE QUADRIVALENT) Brook Horner MD Work Phone: [facility] Work Phone: 09-05-2021 Covid (Moderna) Dr. Brook voss Work Phone: [facility] 02-06-2021 Covid (Moderna) Dr. Brook voss Work Phone: [facility] 08-29-2020 influenza, injectabl e, quadrivalent, contains preservative Brook Horner MD Work Phone: [facility] 08-16-2019 influenza, injectabl e, quadrivalent, contains preservative Brook Horner MD Work Phone: [facility] Work Phone: 07-04-2019 tetanus toxoid, redu ok diphtheria toxoid, and acellular pertussis vaccine, adsorbed Brook Horner MD Work Phone: [facility] 08-12-2018 influenza, injectabl e, quadrivalent, contains preservative Brook Horner MD Work Phone: [facility] Work Phone: 07-26-2015 pneumococcal polysaccharide vaccine, 23 valent Brook Horner MD Work Phone: [facility] Payers Date Payer Category Payer Self-pay [id number] 2021 Medicaid [id number] 2021 Medicaid MEDICAID [facility] MEDICAID [id number] 2021-Present [phone] [address] [place] [address] Medicaid [id number] 2021 Medicaid [id number] 2020 Medicare [facility] MEDICARE [facility] DUAL COMPLETE HMO SNP [id number] 2020-Present [phone] [address] [place] [address] Medicare [id number] 2020 Medicare [id number] 2020 Medicare (Managed Care) [id number]. [id number] 2020 Unknown [id number] 2014 Unknown [id number] Medicare MEDICARE PART A B [id number] Unknown [id number] 62 Unknown [id number] 62 Unknown [id number] 62 Unknown [id number] 62 Unknown [id number] 62 Unknown [id number] 62 Social History Date Type Detail Facility Start: 01-07-2022 End: 05-11-2023 Tobacco smoking status NHIS Unknown if ever smoked [facility] Start: 12-13-2018 Cigarettes [facility] Start: 1955 Sex Assigned At Female [facility] Start: 06-26-2022 End: 08-16-2024 Tobacco smoking status NHIS Smokes tobacco daily [facility] History of tobacco use Cigarette Smoker [facility] Start: 07-11-2021 End: 06-26-2022 Alcohol intake Current non-drinker of alcohol (finding) [facility] Start: 1955 Sex Assigned At Not on file [facility] Start: 06-26-2022 End: 03-04-2023 Cigarettes smoked current (pack per day) - Reported 1 [facility] Work Phone: Start: 06-26-2022 End: 08-16-2024 Tobacco use and exposure Smokeless tobacco non-user [facility] Work Phone: Start: 06-16-2022 End: 06-26-2022 Exposure to SARS-CoV-2 (event) Unable to assess [facility] Start: 07-03-2022 End: 09-11-2022 Exposure to SARS-CoV-2 (event) Not sure [facility] Start: 07-24-2022 End: 06-14-2025 Alcohol intake Current drinker of alcohol (finding) [facility] Start: 07-24-2022 [facility] Start: 03-04-2023 End: 04-10-2023 Tobacco use panel [facility] Work Phone: Start: 09-11-2012 Adult Depression Screening Assessment 0 [facility] Work Phone: Start: 08-16-2024 Alcohol Comment rare - 1 drink a few times a year [facility] Start: 12-20-2024 Sex Female (finding) [facility] NEGATED: Highlighted row [facility] Medical Equipment Procedure Code Equipment Code Equipment Origin al Text Equipment Identifier Dates Colonoscopy Ligation clip, metallic [id number] FDA Start: 04-05-2023 Goals Date Patient Goal Desired Activity /State Functional Status Date Assessment Result Facility 04-05-2023 Functional status Bathroom Privilege [facility] Work Phone: 01-08-2015 Are you deaf, or do you have serious difficulty hearing No 01/08/2015 6:48 PM EDT Shaun Thomas LPN No [facility] 01-08-2015 Are you blind, or do you have serious difficulty seeing, even when wearing glasses No 01/08/2015 6:48 PM EDT Shaun Thomas LPN No [facility] 01-08-2015 Do you have serious difficulty walking or climbing stairs No 01/08/2015 6:48 PM EDT Shaun Thomas LPN No [facility] 01-08-2015 Do you have difficul ty dressing or bathing No 01/08/2015 6:48 PM EDT Shaun Thomas LPN No [facility] 01-08-2015 Because of a physica l, mental, or emotional condition, do you have difficulty doing errands alone such as visiting a physician's office or shopping No 01/08/2015 6:48 PM EDT Shaun Thomas LPN No [facility] Mental Status Date Assessment Result Facility 04-05-2023 Cognitive function Voice/Name [facility] Work Phone: 03-31-2023 Cognitive function Level Of Cons ciousness Awake;Alert;Appropriate;Fol lows Commands [facility] Work Phone: 12-24-2021 Cognitive function Level Of Cons ciousness Awake;Alert;Appropriate;Fol lows Commands [facility] Work Phone: 01-08-2015 Because of a physica l, mental, or emotional condition, do you have serious difficulty concentrating, remembering, or making decisions No 01/08/2015 6:48 PM EDT Shaun Thomas LPN No [facility] Clinical Notes 08-10-2016 to 08-21-2025 Patient InstructionsLia Garibay MD - 06/14/2025 3:15 PM EDTTelephone Encounter - Stefani Maynard LPN - 06/12/2025 3:57 PM EDTPatient InstructionsPatient InstructionsPatient Instructions Note Date & Type Note Facility 08-21-2025 Note HNO ID: [id number] Author: BROOK HORNER MD Service: ? Author Type: Physician Type: Progress Notes Filed: 08/21/2025 16:49 Note Text: Henny Damian is a 69 year old female here for a Medicare Wellness visit. Medicare Health Risk Assessment General Health Good Exercise: Minutes/Day 0 min Exercise: Days/Week 0 days Alcohol: Daily Use Never Alcohol: Drinks/Day Patient does not drink Alcohol: 6 or more drinks Never Feel off balance Yes Concerns: Teeth/Dentures No Concerns: Sexual function Decline Troubled by feelings None of the above Frequency: Eating healthy diet Nearly every day ADLs requiring help None of the above Safety precautions in home/vehicle Yes Smoke, vape, chews tobacco Yes, and I might quit Difficulty hearing No Difficulty seeing No Current Providers Specialists: I have reviewed specialist-related care of the patient in the medical record. Medical/Family history review Reviewed and updated problem list, medical/surgical/family/social history, medications, and allergies. Opioid use review Prescribed: hydrocodone/acetaminophen (last 90 days) Patient-reported: No opioid use on file in the last 90 days Does patient have risk factors for opioid abuse? No Pain overview Current pain concerns and treatment plan reviewed. Patient under the care of a specialist. Depression screening Based on score and interview, patient is at risk for depression. Recommendation: no further intervention at this time Anxiety screening Cognitive screening Mini Cog Score: 5 Cognitive screening reviewed and No further action needed (score 3-5). Functional Observation Was the patient's Timed Up AND Go test unsteady or >= 12 seconds? no Advance Directives Surrogate decision maker and/or advance care plan documented Measurements BP 105/67 Pulse 71 Resp 16 Ht 160 cm (5' 2.99) Wt 70.5 kg (155 lb 6.4 oz) BMI 27.53 kg/m? Vision Screening: Follows with optometry/ophthalmology Assessment/Plan Medicare annual wellness visit, subsequent (Z00.00) - Counseled on healthy diet and regular exercise - Fall avoidance information provided - Personalized prevention plan provided. Reason for Visit Medicare wellness HPI Henny Damian is a 69-year-old female with COPD presenting for a Medicare wellness visit. Henny reports ongoing tobacco use. She is currently using two inhalers: one prescribed by Kate, which she uses in the morning and about an hour before bedtime, and another from Dr. Garibay's office, which she has not been using regularly due to the need to rinse her mouth after use. She reports no longer experiencing nocturnal wheezing and states she sleeps well. She denies waking up gasping for air and does not feel short of breath upon awakening. She is scheduled for a 30-minute walk test on Wednesday to assess her need for supplemental oxygen. She reports cataracts and avoids driving at night. She reports chronic back pain and sciatica, for which she is taking hydrocodone, recently reduced from 2 tablets daily to 1 tablet daily. She also takes gabapentin and tizanidine for pain management. She is taking sertraline for anxiety and depression, which she reports is well controlled. She also takes pravastatin, pantoprazole, and montelukast daily. She lives alone and reports her home is safe with good lighting and handrails on the stairs. She denies regular exercise but climbs 13 stairs to the bathroom 5-6 times daily without difficulty. She reports occasional imbalance and needs new dentures. She reports eating healthy most days and drinks alcohol only 1-2 times per year. She reports feeling occasionally lonely but maintains daily phone contact with friends. SOCIAL HISTORY[1] Past medical history, appointments, medications, allergies reviewed. Pertinent Lab/Diagnostic Studies are reviewed and discussed today Current Outpatient Medications: zbrcytfumt-jpjyfwet-nupjxyjrxd (BREZTRI AEROSPHERE) 160-9-4.8 mcg/actuation HFA aerosol inhaler cholecalciferol (VITAMIN D3) 5,000 unit tab tiZANidine HCl (ZANAFLEX) 4 mg capsule HYDROcodone-acetaminophen (NORCO) 5-325 mg per tablet cyanocobalamin (VITAMIN B-12) 1,000 mcg tab ascorbic acid, vitamin C, (VITAMIN C) 500 mg tablet apixaban (ELIQUIS) 5 mg tab(s) gabapentin (NEURONTIN) 100 mg capsule folic acid/multivit-min/lutein (CENTRUM SILVER ORAL) metoprolol succinate ER (TOPROL XL) 50 mg 24 hr tablet BIOTIN ORAL albuterol HFA (PROVENTIL HFA, VENTOLIN HFA) 90 mcg/actuation inhaler traZODone (DESYREL) 150 mg tablet sertraline (ZOLOFT) 50 mg tablet pravastatin (PRAVACHOL) [address] (PROTONIX) 40 mg tablet montelukast (SINGULAIR) 10 mg tablet Health Maintenance Hepatitis C Screening Shingrix Vaccine(1 of 2) RSV Vaccine(1 - Risk 60-74 years 1-dose series) Medicare Advantage Annual Wellness Visit Mammogram Screening Colorectal Cancer Screening@ Review Of Systems Con (more content not included)... [facility] 08-21-2025 Note HNO ID: [id number] Author: ARTIE BARRETT MA Service: ? Author Type: Bituminous Distributor Operator Type: Progress Notes Filed: 08/21/2025 14:42 Note Text: Patient has been taking Pravastatin 20 MG 1TQD. Reconcile dispense history shows last fill 06/16/25. Patient confirms taking at office visit with PCP 08/21/25. Artie Barrett MA [facility] 08-07-2025 Note Patient Outreach (IN [facility]) HENNY DAMIAN ([id number]) 1955 F Date Time Provider Department 08/07/25 BROOK HORNER During your visit today, we recorded the following information about you: Allergies As of Date: 08/07/2025 Noted Allergy Reaction DOXYCYCLINE HCL 06/17/2005 14 - Other: See Comments Comments: insomnia Date Reviewed: 06/14/2025 Reviewed by: Lia Garibay MD - Fully Assessed Visit Diagnosis:Hyperlipidemia [E78.5] Order(s):LIPID PANEL, FASTING [SQLIPB] Order #: [id number] FUTURE Prescriptions as of 08/10/2025 - lpulfoormd-nludvwgd-skxhuzuhwp (BREZTRI AEROSPHERE) 160-9-4.8 mcg/actuation HFA aerosol inhaler Inhale 2 puffs as instructed two times a day. - albuterol HFA (PROVENTIL HFA, VENTOLIN HFA) 90 mcg/actuation inhaler Inhale 2 puffs as instructed every 4 hours as needed for wheezing/shortness of breath. - montelukast (SINGULAIR) 10 mg tablet Take 1 tablet by mouth daily at bedtime. - cholecalciferol (VITAMIN D3) 5,000 unit tab Take 1 tablet by mouth once daily. - pantoprazole DR (PROTONIX) 40 mg tablet Take 1 tablet by mouth two times a day. - pravastatin (PRAVACHOL) 20 mg tablet Take 1 tablet by mouth once daily. - traZODone (DESYREL) 150 mg tablet Take 1 tablet by mouth daily at bedtime. - sertraline (ZOLOFT) 50 mg tablet Take 1 tablet by mouth once daily. - tiZANidine HCl (ZANAFLEX) 4 mg capsule EVERY 8 HOURS - HYDROcodone-acetaminophen (NORCO) 5-325 mg per tablet Take 1 tablet by mouth two times a day. - cyanocobalamin (VITAMIN B-12) 1,000 mcg tab Take 1 tablet by mouth once daily. - ascorbic acid, vitamin C, (VITAMIN C) 500 mg tablet Take 1 tablet by mouth once daily. - apixaban (ELIQUIS) 5 mg tab(s) Take 5 mg by mouth twice daily. - gabapentin (NEURONTIN) 100 mg capsule Take 100 mg by mouth twice daily. - folic acid/multivit-min/lutein (CENTRUM SILVER ORAL) Take by mouth once daily. - metoprolol succinate ER (TOPROL XL) 50 mg 24 hr tablet Take 50 mg by mouth once daily. - BIOTIN ORAL Take 1 tablet by mouth once daily. 500 mg Problem List As Of Date 08/07/2025 Noted Resolved ESOPHAGEAL REFLUX [K21.9] 06/17/2005 Insomnia, unspecified [G47.00] 06/17/2005 Inguinal pain [R10.30] 05/31/2009 03/05/2021 Blood in stool [K92.1] 06/12/2009 03/05/2021 Benign Neoplasm of Colon [D12.6] 06/24/2009 Internal hemorrhoids without mention of complic*12/30/2009 03/05/2021 Routine gynecological examination [Z01.419] 01/03/2010 03/05/2021 Class: Chronic Cough [R05.9] 02/14/2010 03/05/2021 Allergic rhinitis [J30.9] 12/08/2010 Goiter [E04.9] 03/04/2012 Tobacco abuse [Z72.0] 03/04/2012 Hyperlipidemia [E78.5] 03/04/2012 Moderate episode of recurrent major depressive *07/22/2012 Spondylolisthesis [M43.10] 07/22/2012 Sebaceous cyst [L72.3] 07/19/2015 03/05/2021 Skin lesion of face [L98.9] 07/19/2015 03/05/2021 Anxiety [F41.9] 07/26/2015 Benign neoplasm of skin of face [D23.30] 08/13/2015 Restless legs syndrome (RLS) [G25.81] 12/27/2015 Anal or rectal pain [K62.89] 08/10/2016 03/05/2021 Bright red blood per rectum [K62.5] 08/10/2016 Hair loss [L65.9] 08/16/2019 Coronary artery disease involving hamilton lopez*06/20/2021 Paroxysmal A-fib (HCC) [I48.0] 05/09/2023 Anxiety with depression [F41.8] 08/16/2024 Encounter Status:Closed by [employer], PRODUSER on 08/10/25 [facility] 07-09-2025 Note HNO ID: [id number] Author: MAAME HARRISON RN Service: ? Author Type: Registered Nurse Type: Progress Notes Filed: 07/09/2025 17:54 Note Text: ACM SCOOBY RN Action/FYI: Pt is ordered pravastatin 20 mg daily. Has not been filling Rx. Please consider ordering Moderate to high intensity statin if clinically appropriate for patient (table below) High Intensity Statins Atorvastatin 40-80 mg Amlodipine-atorvastatin 40-80 mg Rosuvastatin 20-40 mg Simvastatin 80 mg Ezetimibe-simvastatin 80 mg Moderate Intensity Statins Atorvastatin 10-20 mg Amlodipine-atorvastatin 10-20 mg Rosuvastatin 5-10 mg Simvastatin 20-40 mg Ezetimibe-simvastatin 20-40 mg Pravastatin 40-80 mg Lovastatin 40 mg Fluvastatin 40-80 mg Pitavastatin 1-4 mg Patient identified by name and date of . Patient Attributed To: QAE Payer: [facility] [place] or ACO Reason for review or outreach: Medication Adherence Medication Adherence Review Details: Statin use in persons with Cardiovascular disease (SPC) Summary / Findings: SUMMARY / FINDINGS: Pt is ordered pravastatin 20 mg daily. Has not been filling Rx. Action Taken: Data submitted to Payer Notation made to upcoming appointment notes requesting provider follow up Encounter routed to provider Contact made with patient: No, Chart review only. [facility] 07-09-2025 Note Patient Outreach ([facility] HENNY DAMIAN ([id number]) 1955 F Date Time Provider Department 07/09/25 MAAME HARRISON During your visit today, we recorded the following information about you: Maame Harrison RN 07/09/2025 5:54 PM Signed ACM SCOOBY RN Action/FYI: Pt is ordered pravastatin 20 mg daily. Has not been filling Rx. Please consider ordering Moderate to high intensity statin if clinically appropriate for patient (table below) High Intensity Statins Atorvastatin 40-80 mg Amlodipine-atorvastatin 40-80 mg Rosuvastatin 20-40 mg Simvastatin 80 mg Ezetimibe-simvastatin 80 mg Moderate Intensity Statins Atorvastatin 10-20 mg Amlodipine-atorvastatin 10-20 mg Rosuvastatin 5-10 mg Simvastatin 20-40 mg Ezetimibe-simvastatin 20-40 mg Pravastatin 40-80 mg Lovastatin 40 mg Fluvastatin 40-80 mg Pitavastatin 1-4 mg Patient identified by name and date of . Patient Attributed To: QAE Payer: [facility] MA or ACO Reason for review or outreach: Medication Adherence Medication Adherence Review Details: Statin use in persons with Cardiovascular disease (SPC) Summary / Findings: SUMMARY / FINDINGS: Pt is ordered pravastatin 20 mg daily. Has not been filling Rx. Action Taken: Data submitted to Payer Notation made to upcoming appointment notes requesting provider follow up Encounter routed to provider Contact made with patient: No, Chart review only. Artie Barrett MA 08/21/2025 2:42 PM Signed Patient has been taking Pravastatin 20 MG 1TQD. Reconcile dispense history shows last fill 06/16/25. Patient confirms taking at office visit with PCP 08/21/25. Artie Barrett MA Allergies As of Date: 07/09/2025 Noted Allergy Reaction DOXYCYCLINE HCL 06/17/2005 14 - Other: See Comments Comments: insomnia Date Reviewed: 06/14/2025 Reviewed by: Lia Garibay MD - Fully Assessed Reason for Visit: ACM SCOOBY RN [[id number]] Prescriptions as of 08/21/2025 - cqbfqxlaaf-stvhjhvm-fhsrwwopkf (BREZTRI AEROSPHERE) 160-9-4.8 mcg/actuation HFA aerosol inhaler Inhale 2 puffs as instructed two times a day. - albuterol HFA (PROVENTIL HFA, VENTOLIN HFA) 90 mcg/actuation inhaler Inhale 2 puffs as instructed every 4 hours as needed for wheezing/shortness of breath. - montelukast (SINGULAIR) 10 mg tablet Take 1 tablet by mouth daily at bedtime. - cholecalciferol (VITAMIN D3) 5,000 unit tab Take 1 tablet by mouth once daily. - pantoprazole DR (PROTONIX) 40 mg tablet Take 1 tablet by mouth two times a day. - pravastatin (PRAVACHOL) 20 mg tablet Take 1 tablet by mouth once daily. - traZODone (DESYREL) 150 mg tablet Take 1 tablet by mouth daily at bedtime. - sertraline (ZOLOFT) 50 mg tablet Take 1 tablet by mouth once daily. - tiZANidine HCl (ZANAFLEX) 4 mg capsule EVERY 8 HOURS - HYDROcodone-acetaminophen (NORCO) 5-325 mg per tablet Take 1 tablet by mouth two times a day. - cyanocobalamin (VITAMIN B-12) 1,000 mcg tab Take 1 tablet by mouth once daily. - ascorbic acid, vitamin C, (VITAMIN C) 500 mg tablet Take 1 tablet by mouth once daily. - apixaban (ELIQUIS) 5 mg tab(s) Take 5 mg by mouth twice daily. - gabapentin (NEURONTIN) 100 mg capsule Take 100 mg by mouth twice daily. - folic acid/multivit-min/lutein (CENTRUM SILVER ORAL) Take by mouth once daily. - metoprolol succinate ER (TOPROL XL) 50 mg 24 hr tablet Take 50 mg by mouth once daily. - BIOTIN ORAL Take 1 tablet by mouth once daily. 500 mg Problem List As Of Date 07/09/2025 Noted Resolved ESOPHAGEAL REFLUX [K21.9] 06/17/2005 Insomnia, unspecified [G47.00] 06/17/2005 Inguinal pain [R10.30] 05/31/2009 03/05/2021 Blood in stool [K92.1] 06/12/2009 03/05/2021 Benign Neoplasm of Colon [D12.6] 06/24/2009 Internal hemorrhoids without mention of complic*12/30/2009 03/05/2021 Routine gynecological examination [Z01.419] 01/03/2010 03/05/2021 Class: Chronic Cough [R05.9] 02/14/2010 03/05/2021 Allergic rhinitis [J30.9] 12/08/2010 Goiter [E04.9] 03/04/2012 Tobacco abuse [Z72.0] 03/04/2012 Hyperlipidemia [E78.5] 03/04/2012 Moderate episode of recurrent major depressive *07/22/2012 Spondylolisthesis [M43.10] 07/22/2012 Sebaceous cyst [L72.3] 07/19/2015 03/05/2021 Skin lesion of face [L98.9] 07/19/2015 03/05/2021 Anxiety [F41.9] 07/26/2015 Benign neoplasm of skin of face [D23.30] 08/13/2015 Restless legs syndrome (RLS) [G25.81] 12/27/2015 Anal or rectal pain [K62.89] 08/10/2016 03/05/2021 Bright red blood per rectum [K62.5] 08/10/2016 Hair loss [L65.9] 08/16/2019 Coronary artery disease involving hamilton lopez*06/20/2021 Paroxysmal A-fib (HCC) [I48.0] 05/09/2023 Anxiety with depression [F41.8] 08/16/2024 Encounter Status:Closed by MAAME HARRISON on 07/09/25 [facility] 06-14-2025 Instructions Lia Garibay MD - 06/14/2025 3:47 PM EDT Stop Singulair (montelukast) Rinse mouth after use of Breztri documented in this encounter [facility] 06-14-2025 History of Present illness Narrative Images from the original note were not included. . [facility] [place] Note Patient name: Henny Damian PCP: Brook Horner MD Referring Physician: Kate Cervantes CNP Recording using [employer] software for draft documentation of the visit was discussed with the patient/authorized senior patient account representative; all questions welcomed and answered. Patient/authorized senior patient account representative agreed to proceed CC: Low oxygen HPI: Henny Damian 69 year old female current [id number] smoker with PMH significant for CAD s/p PCI/stent, AF on AC, GERD, participating in lung cancer screening, emphysema noted on lung cancer screening CT being referred for low oxygen levels. Henny reports a recent episode of desaturation to 90% during a walk test conducted by her primary care provider, which prompted a referral for further evaluation. She does not monitor her oxygen levels at home and has not been prescribed supplemental oxygen. She expresses willingness to use oxygen if necessary, but currently does not feel the need for it. She is currently using an albuterol inhaler, which she reports has significantly improved her breathing and reduced nocturnal wheezing. She was also prescribed Singulair less than a month ago, but has not noticed any improvement in her breathing with this medication. Respiratory symptoms consist of LEGER, wheezing and cough productive of phlegm. Phlegm more prominent in am which she relates to post nasal drip. No recurrent bronchitis or pneumonia. She is an active smoker and has only been able to quit smoking for less than a week. She has not used nicotine replacement and is leary of Chantix as her had bad side effects. DATA: PFT: Imaging / Diagnostic Studies: DATE OF EXAM: Sep 13 2024 11:59AM [facility] 0562 - CT LUNG SCREEN WO IVCON / RESULT: Are nodules present? Yes, 6 or more nodules New nodules: No Enlarging nodules: No Other lung nodule comments: Few sub-6 mm (average diameter) pulmonary nodules. For reference, 5 mm RIGHT upper lobe nodule (image 55), 2.5 mm posterior RIGHT upper lobe nodule (82), 4 mm RIGHT lower lobe nodule (210), 2.5 mm LEFT lower lobe nodule (175) and 2 mm LEFT lower lobe nodule (102). Other findings: Mild subpleural groundglass opacities in the RIGHT middle lobe and lateral RIGHT lower lobe Minimal secretions in the RIGHT mainstem bronchus with diffuse bronchial wall thickening. Small calcified nodule in the RIGHT thyroid lobe. Atherosclerotic calcifications are present in the thoracic aorta and aortic root. Indeterminate nodular density in the RIGHT breast (7:55). Screening mammography from 08/23/2024 was negative for malignancy. Decreased bone density with degenerative changes in the thoracic spine. Atherosclerotic calcifications in the abdominal aorta and branch vessels. Emphysema: Moderate, centrilobular, upper lobe Coronary Artery Calcifications: Circumflex severe; Left Anterior Descending severe; Right Coronary mild Review of CT shows emphysema and several nodules PAST MEDICAL HISTORY Diagnosis Date Arthritis Atrial fibrillation (HCC) Coronary artery disease PCI/Stent COVID-19 05/2022 Depression GERD (gastroesophageal reflux disease) Hayfever Hemorrhoid History of transfusion ALLERGIES Allergen Reactions Doxycycline Hcl Other: See Comments insomnia nhngvubajy-sykvmlru-rxdfzekqqz (BREZTRI AEROSPHERE) 160-9-4.8 mcg/actuation HFA aerosol inhaler Inhale 2 puffs as instructed two times a day. albuterol HFA (PROVENTIL HFA, VENTOLIN HFA) 90 mcg/actuation inhaler Inhale 2 puffs as instructed every 4 hours as needed for wheezing/shortness of breath. montelukast (SINGULAIR) 10 mg tablet Take 1 tablet by mouth daily at bedtime. cholecalciferol (VITAMIN D3) 5,000 unit tab Take 1 tablet by mouth once daily. pantoprazole DR (PROTONIX) 40 mg tablet Take 1 tablet by mouth two times a day. pravastatin (PRAVACHOL) 20 mg tablet Take 1 tablet by mouth once daily. traZODone (DESYREL) 150 mg tablet Take 1 tablet by mouth daily at bedtime. sertraline (ZOLOFT) 50 mg tablet Take 1 tablet by mouth once daily. tiZANidine HCl (ZANAFLEX) 4 mg capsule EVERY 8 HOURS HYDROcodone-acetaminophen (NORCO) 5-325 mg per tablet Take 1 tablet by mouth two times a day. cyanocobalamin (VITAMIN B-12) 1,000 mcg tab Take 1 tablet by mouth once daily. ascorbic acid, vitamin C, (VITAMIN C) 500 mg tablet Take 1 tablet by mouth once daily. apixaban (ELIQUIS) 5 mg tab(s) Take 5 mg by mouth twice daily. gabapentin (NEURONTIN) 100 mg capsule Take 100 mg by mouth twice daily. folic acid/multivit-min/lutein (CENTRUM SILVER ORAL) Take by mouth once daily. metoprolol succinate ER (TOPROL XL) 50 mg 24 hr tablet Take 50 mg by mouth once daily. BIOTIN ORAL Take 1 tablet by mouth once daily. 500 mg SOCIAL HISTORY[1] FAMILY HISTORY Problem Relation Age of Onset Diabetes Mother other (NE) Mother other (NE) Father COPD Sister Emphysema Sister No Known Problems Brother No Known Problems Maternal Grandmother No Known Problems Maternal Grandfather No Known Problems Paternal Grandmother No Known Problems Paternal Grandfather No Known Problems Daughter PAST SURGICAL HISTORY Procedure Laterality Date , CLASSIC, ANTE/POST CA 1994 COLONOSCOPY 09/11/2022 repeat in 10 years COLONOSCOPY FLX DX W/COLLJ SPEC WHEN PFRMD 12/19/2018 Colonoscopy COLSC FLX W/RMVL OF TUMOR POLYP LESION SNARE TQ 06/24/2009 polyp at 25cm EGD 09/11/2022 ESOPHAGOGASTRODUODENOSCOPY TRANSORAL DIAGNOSTIC 12/19/2018 EGD HEMORRHOIDECTOMY INT & XTRNL 2/> COLUMN/JULIENNE 03/06/2010 HERNIA REPAIR HX PAST SURGICAL HISTORY OF Late Hernia repair PAST SURGICAL HISTORY OF 2011 polyp vocal cord STENT PLACEMENT Left 05/14/2020 [facility]-left circumflex THROAT SURGERY PROCEDURE UNLISTED 12/27/2012 polyp vocal cord TONSILLECTOMY HX TOTAL ABDOMINAL HYSTERECT W/WO RMVL TUBE OVARY 1997 [facility] & LSO - benign indication (endometrial implants) - 1997 VAGINAL HYSTERECTOMY X-RAY LUMBAR SPINE AP & LAT 08/28/2015 [facility]-degenerative changes PMH, Social history, family history and surgical history reviewed and updated in EMR REVIEW OF SYSTEMS: CONSTITUTIONAL: No fevers, chills, nightsweats, unintended weight loss HEENT: Nasal congestion with postnasal drip. CARDIOVASCULAR: No chest pain, palpitations, orthopnea, edema. PULM: See HPI GI: No problematic reflux NEURO: No balance problems, peripheral weakness/paresthesias or numbness of concern. PSY: No concerns regarding depression, anxiety INTEGUMENTARY: Bruising easily PHYSICAL EXAMINATION: BP 110/72 Pulse 67 Resp 18 Ht 5' 2.99 (1.60m) Wt 161 lb (73.0kg) SpO2 93% BMI 28.53 kg/(m^2). General Appearance: Age-appropriate female, NAD, smells of tobacco. Skin: Skin color, texture, turgor normal, no suspicious rashes or lesions. Head: Normocephalic, no masses, lesions, tenderness or abnormalities. Oropharynx: Upper plate, no oral lesions. Neck: No masses or adenopathy. Lungs: Not labored, normal to percussion, wheezes left upper lobe. Heart: Regular rate and rhythm, no murmurs or gallops. Extremities: No edema or clubbing. Assessment/Plan: 1. Moderate COPD -Recommend discontinuation of Singulair. Started Breztri 2 puffs twice daily with continued use of albuterol as needed -Smoking cessation is paramount 2. Centrilobular emphysema -Overnight oxygen assessment +/- formal walk test 3. Cigarette smoker -Current smoker with sequelae of COPD/emphysema - Smoking cessation strongly encouraged - Participating in lung cancer screening Lia Garibay MD [facility] [place] [1] Social History Tobacco Use Smoking status: Every Day Current packs/day: 1.00 Average packs/day: 1 pack/day for 30.0 years (30.0 ttl pk-yrs) Types: Cigarettes Smokeless tobacco: Never Vaping Use Vaping status: Never Used Substance Use Topics Alcohol use: Yes Comment: rare - 1 drink a few times a year Drug use: Not Currently Types: Marijuana documented in this encounter [facility] 06-14-2025 Note HNO ID: [id number] Author: LIA GARIBAY MD Service: ? Author Type: Physician Type: Progress Notes Filed: 06/14/2025 16:34 Note Text: . [facility] [place] Note Patient name: Henny Damian PCP: Brook Horner MD Referring Physician: Kate Cervantes CNP Recording using [employer] software for draft documentation of the visit was discussed with the patient/authorized senior patient account representative; all questions welcomed and answered. Patient/authorized senior patient account representative agreed to proceed CC: Low oxygen HPI: Henny Damian 69 year old female current [id number] smoker with PMH significant for CAD s/p PCI/stent, AF on AC, GERD, participating in lung cancer screening, emphysema noted on lung cancer screening CT being referred for low oxygen levels. Henny reports a recent episode of desaturation to 90% during a walk test conducted by her primary care provider, which prompted a referral for further evaluation. She does not monitor her oxygen levels at home and has not been prescribed supplemental oxygen. She expresses willingness to use oxygen if necessary, but currently does not feel the need for it. She is currently using an albuterol inhaler, which she reports has significantly improved her breathing and reduced nocturnal wheezing. She was also prescribed Singulair less than a month ago, but has not noticed any improvement in her breathing with this medication. Respiratory symptoms consist of LEGER, wheezing and cough productive of phlegm. Phlegm more prominent in am which she relates to post nasal drip. No recurrent bronchitis or pneumonia. She is an active smoker and has only been able to quit smoking for less than a week. She has not used nicotine replacement and is leary of Chantix as her had bad side effects. DATA: PFT: Imaging / Diagnostic Studies: DATE OF EXAM: Sep 13 2024 11:59AM [facility] 0562 - CT LUNG SCREEN WO IVCON / RESULT: Are nodules present? Yes, 6 or more nodules New nodules: No Enlarging nodules: No Other lung nodule comments: Few sub-6 mm (average diameter) pulmonary nodules. For reference, 5 mm RIGHT upper lobe nodule (image 55), 2.5 mm posterior RIGHT upper lobe nodule (82), 4 mm RIGHT lower lobe nodule (210), 2.5 mm LEFT lower lobe nodule (175) and 2 mm LEFT lower lobe nodule (102). Other findings: Mild subpleural groundglass opacities in the RIGHT middle lobe and lateral RIGHT lower lobe Minimal secretions in the RIGHT mainstem bronchus with diffuse bronchial wall thickening. Small calcified nodule in the RIGHT thyroid lobe. Atherosclerotic calcifications are present in the thoracic aorta and aortic root. Indeterminate nodular density in the RIGHT breast (7:55). Screening mammography from 08/23/2024 was negative for malignancy. Decreased bone density with degenerative changes in the thoracic spine. Atherosclerotic calcifications in the abdominal aorta and branch vessels. Emphysema: Moderate, centrilobular, upper lobe Coronary Artery Calcifications: Circumflex severe; Left Anterior Descending severe; Right Coronary mild Review of CT shows emphysema and several nodules PAST MEDICAL HISTORY Diagnosis Date Arthritis Atrial fibrillation (HCC) Coronary artery disease PCI/Stent COVID-19 05/2022 Depression GERD (gastroesophageal reflux disease) Hayfever Hemorrhoid History of transfusion ALLERGIES Allergen Reactions Doxycycline Hcl Other: See Comments insomnia gogmystmqu-sjzdycfy-fylekdjjky (BREZTRI AEROSPHERE) 160-9-4.8 mcg/actuation HFA aerosol inhaler Inhale 2 puffs as instructed two times a day. albuterol HFA (PROVENTIL HFA, VENTOLIN HFA) 90 mcg/actuation inhaler Inhale 2 puffs as instructed every 4 hours as needed for wheezing/shortness of breath. montelukast (SINGULAIR) 10 mg tablet Take 1 tablet by mouth daily at bedtime. cholecalciferol (VITAMIN D3) 5,000 unit tab Take 1 tablet by mouth once daily. pantoprazole DR (PROTONIX) 40 mg tablet Take 1 tablet by mouth two times a day. pravastatin (PRAVACHOL) 20 mg tablet Take 1 tablet by mouth once daily. traZODone (DESYREL) 150 mg tablet Take 1 tablet by mouth daily at bedtime. sertraline (ZOLOFT) 50 mg tablet Take 1 tablet by mouth once daily. tiZANidine HCl (ZANAFLEX) 4 mg capsule EVERY 8 HOURS HYDROcodone-acetaminophen (NORCO) 5-325 mg per tablet Take 1 tablet by mouth two times a day. cyanocobalamin (VITAMIN B-12) 1,000 mcg tab Take 1 tablet by mouth once daily. ascorbic acid, vitamin C, (VITAMIN C) 500 mg tablet Take 1 tablet by mouth once daily. apixaban (ELIQUIS) 5 mg tab(s) Take 5 mg by mouth twice daily. gabapentin (NEURONTIN) 100 mg capsule Take 100 mg by mouth twice daily. folic acid/multivit-min/lutein (CENTRUM SILVER ORAL) Take by mouth once daily. metoprolol succinate ER (TOPROL XL) 50 mg 24 hr tablet Take 50 mg by mouth once daily. BIOTIN ORAL Take 1 tablet by mouth once daily. 500 mg SOCIAL HISTORY[1] FAMILY (more content not included)... [facility] 06-12-2025 Telephone encounter Note Patient needs to contact office. Stefani Maynard LPN [facility] 06-12-2025 Miscellaneous Notes Patient needs to contact office. Stefani Maynard LPN documented in this encounter [facility] 05-17-2025 Note HNO ID: [id number] Author: TARIQ ECKERT RT(R) Service: ? Author Type: Car Wash Supervisor Type: Progress Notes Filed: 05/17/2025 15:13 Note Text: Radiology Service Progress Note PATIENT NAME: Henny Damian DATE OF SERVICE: May 17, 2025 TIME: 3:01 PM PATIENT IDENTITY VERIFICATION COMPLETED USING TWO (2) IDENTIFIERS: Name and Date of confirmed by patient verbally. FALL SCREENING: Has the patient had 2 falls in the last year or 1 fall with injury or currently using an Ambulatory Assistive Device (Walker, Cane, Wheelchair, Crutches, etc.)? No PATIENT GENDER DATA: Assigned female at . status: : No status: NO. PATIENT RELEVANT IMPLANT DATA REVIEWED: Yes PATIENT PRESENTS WITH AN IMPLANTABLE OR ATTACHED MANUFACTURING OPERATIONS MANAGER: No RADIOLOGY DEPARTMENT: General X-ray: Exam(s) Completed: Chest X-Ray PERIPHERAL IV DATA: Not applicable SIGNED BY: RT Priya(R) May 17, 2025 3:01 PM [facility] 05-17-2025 Note HNO ID: [id number] Author: KATE CERVANTES APRN.PUBLIC SERVICE ADMINISTRATOR Service: ? Author Type: Nurse Practitioner Type: Progress Notes Filed: 05/17/2025 15:28 Note Text: CC: Patient presents with: Recheck: 3 month follow up HPI Henny Damian is a 69 year old female who presents today for follow up on respiratory concerns. Recording using [employer] software for draft documentation of the visit was discussed with the patient/authorized senior patient account representative; all questions welcomed and answered. Patient/authorized senior patient account representative agreed to proceed Dyspnea and Wheezing: - Dyspnea and wheezing have remained unchanged since last visit. - Wheezing predominantly occurs at night while in bed. - Denies use of an inhaler. - Denies significant dyspnea during the day. - Experiences fatigue with prolonged activity, such as walking around a store. - Denies chest pressure, palpitations, or syncope. - Reports occasional dizziness, attributed to not eating breakfast or lunch. - Denies increased dyspnea or wheezing with ambulation. - Denies productive cough during the day; reports clear sputum in the morning. - Last lung cancer screening CT was negative. - Smokes approximately 16 cigarettes per day. - Denies previous use of albuterol inhaler. REVIEW OF SYSTEMS See HPI PAST MEDICAL HISTORY Diagnosis Date Arthritis Atrial fibrillation (HCC) had stent placement Coronary artery disease COVID-19 05/2022 Depression GERD (gastroesophageal reflux disease) Hayfever Hemorrhoid History of transfusion PAST SURGICAL HISTORY Procedure Laterality Date ABDOMINAL SURGERY HX , CLASSIC, ANTE/POST CA 1994 COLONOSCOPY 09/11/2022 repeat in 10 years COLONOSCOPY FLX DX W/COLLJ SPEC WHEN PFRMD 12/19/2018 Colonoscopy COLSC FLX W/RMVL OF TUMOR POLYP LESION SNARE TQ 06/24/2009 polyp at 25cm EGD 09/11/2022 ESOPHAGOGASTRODUODENOSCOPY TRANSORAL DIAGNOSTIC 12/19/2018 EGD HEMORRHOIDECTOMY INT AND XTRNL 2/> COLUMN/JULIENNE 03/06/2010 HERNIA REPAIR HX PAST SURGICAL HISTORY OF Late Hernia repair PAST SURGICAL HISTORY OF 2011 polyp vocal cord STENT PLACEMENT Left 05/14/2020 [facility]-left circumflex THROAT SURGERY PROCEDURE UNLISTED 12/27/2012 polyp vocal cord TONSILLECTOMY HX TOTAL ABDOMINAL HYSTERECT W/WO RMVL TUBE OVARY 1997 [facility] L[facility] - benign indication (endometrial implants) - 1997 VAGINAL HYSTERECTOMY X-RAY LUMBAR SPINE AP AND LAT 08/28/2015 [facility]-degenerative changes ALLERGIES Doxycycline Hcl MEDICATIONS albuterol HFA (PROVENTIL HFA, VENTOLIN HFA) 90 mcg/actuation inhaler Inhale 2 puffs as instructed every 4 hours as needed for wheezing/shortness of breath. montelukast (SINGULAIR) 10 mg tablet Take 1 tablet by mouth daily at bedtime. cholecalciferol (VITAMIN D3) 5,000 unit tab Take 1 tablet by mouth once daily. pantoprazole DR (PROTONIX) 40 mg tablet Take 1 tablet by mouth two times a day. pravastatin (PRAVACHOL) 20 mg tablet Take 1 tablet by mouth once daily. traZODone (DESYREL) 150 mg tablet Take 1 tablet by mouth daily at bedtime. sertraline (ZOLOFT) 50 mg tablet Take 1 tablet by mouth once daily. tiZANidine HCl (ZANAFLEX) 4 mg capsule EVERY 8 HOURS HYDROcodone-acetaminophen (NORCO) 5-325 mg per tablet Take 1 tablet by mouth two times a day. cyanocobalamin (VITAMIN B-12) 1,000 mcg tab Take 1 tablet by mouth once daily. ascorbic acid, vitamin C, (VITAMIN C) 500 mg tablet Take 1 tablet by mouth once daily. apixaban (ELIQUIS) 5 mg tab(s) Take 5 mg by mouth twice daily. gabapentin (NEURONTIN) 100 mg capsule Take 100 mg by mouth twice daily. folic acid/multivit-min/lutein (CENTRUM SILVER ORAL) Take by mouth once daily. metoprolol succinate ER (TOPROL XL) 50 mg 24 hr tablet Take 50 mg by mouth once daily. BIOTIN ORAL Take 1 tablet by mouth once daily. 500 mg FAMILY HISTORY Problem Relation Age of Onset Diabetes Mother other (NE) Mother other (NE) Father COPD Sister Emphysema Sister No Known Problems Brother No Known Problems Maternal Grandmother No Known Problems Maternal Grandfather No Known Problems Paternal Grandmother No Known Problems Paternal Grandfather No Known Problems Daughter Social History Tobacco Use Smoking status: Every Day Current packs/day: 1.00 Average packs/day: 1 pack/day for 30.0 years (30.0 ttl pk-yrs) Types: Cigarettes Smokeless tobacco: Never Vaping Use Vaping status: Never Used Substance Use Topics Alcohol use: Yes Comment: rare - 1 drink a few times a year Drug use: Not Currently Types: Marijuana PHYSICAL EXAM BP 122/66 Pulse 71 Resp 16 Wt 71.2 kg (157 lb) SpO2 92% BMI 28.35 kg/m? General Appearance: well appearing, in no acute distress, alert Lungs: lungs with diminished lung sounds bilaterally with faint expiratory wheezes. Heart: RRR without murmur, gallop, or rubs. No ectopy Health maintenance reviewed with patient: Hepatitis C Screening Never done Shingrix Vaccin (more content not included)... [facility] 02-14-2025 Instructions Kate Cervantes APRN.PUBLIC SERVICE ADMINISTRATOR - 02/14/2025 2:50 PM EDT - Continue taking your current medications as prescribed: Eliquis, metoprolol, sertraline (50 mg daily), trazodone (at bedtime), gabapentin, Shelby, pravastatin, and pantoprazole. - Schedule an appointment with the [facility] for ongoing heart management. - Consider trying an ruec-rkw-rddwzow vitamin iron--preferably a chewable form you can tolerate--and include iron-rich foods (like iron-fortified cereals, breads, or leafy greens) in your diet to help manage restless legs; keep an eye on any changes in your symptoms. - Complete the blood work ordered today so your blood counts and iron levels can be reviewed. - Arrange to have a lung cancer screening in September, as you are due for one. - If you notice an increase in shortness of breath or persistent wheezing, consider having a COPD breathing test at the [facility] and discuss potential treatments with your provider. - When you re ready to quit smoking, contact our office to talk about safer options like nicotine patches or Chantix rather than switching to vaping. documented in this encounter [facility] 02-14-2025 Note HNO ID: [id number] Author: KATE CERVANTES APRN.CNP Service: ? Author Type: Nurse Practitioner Type: Progress Notes Filed: 02/15/2025 07:42 Note Text: CC: Patient presents with: Recheck: 6 month follow up HPI Henny Damian is a 69 year old female who presents today for routine follow up. Recording using [employer] software for draft documentation of the visit was discussed with the patient/authorized senior patient account representative; all questions welcomed and answered. Patient/authorized senior patient account representative agreed to proceed Atrial Fibrillation: - Well-controlled; denies palpitations, chest pain, or dyspnea. - Taking Eliquis and metoprolol. - Last seen by [facility] several months ago; needs to schedule a follow-up. CAD and HLD: - Noted slightly low blood pressure readings over the past two months at Dr. Arreola's office but at goal in office. - Denies dizziness or syncope chest pain, SOB, edema, or headaches. - Does not monitor blood pressure at home. - Adheres to a low-fat, low-salt diet. Depression and Insomnia: - Well-controlled with sertraline 50 mg daily and trazodone at bedtime. - No suicidal ideation or major stressors; reports good sleep quality. - Denies alcohol or drug use. GERD: - Well-controlled with pantoprazole. - Denies heartburn, dysphagia, nausea, or abdominal pain. Restless Leg Syndrome: - Has not been taking iron supplements due to constipation. - Denies increased restlessness in legs at night. - Consumes iron-fortified foods like bread and cereal. Pre-Diabetes: - diet controlled - Denies increased thirst, hunger, or urination. - No new numbness or symptoms of hypoglycemia. Chronic Pain: - Managed with gabapentin and Shelby prescribed by Dr. Arreola. - Engages in daily stretching and frequent stair climbing. Tobacco Use: - Smokes 14-15 cigarettes per day. - Reports a cough, especially at night. - denies SOB, wheezing, fever, chills, or exercise intolerance. REVIEW OF SYSTEMS See HPI PAST MEDICAL HISTORY Diagnosis Date Arthritis Atrial fibrillation (HCC) had stent placement Coronary artery disease COVID-19 05/2022 Depression GERD (gastroesophageal reflux disease) Hayfever Hemorrhoid History of transfusion PAST SURGICAL HISTORY Procedure Laterality Date ABDOMINAL SURGERY HX , CLASSIC, ANTE/POST CA 1994 COLONOSCOPY 09/11/2022 repeat in 10 years COLONOSCOPY FLX DX W/COLLJ SPEC WHEN PFRMD 12/19/2018 Colonoscopy COLSC FLX W/RMVL OF TUMOR POLYP LESION SNARE TQ 06/24/2009 polyp at 25cm EGD 09/11/2022 ESOPHAGOGASTRODUODENOSCOPY TRANSORAL DIAGNOSTIC 12/19/2018 EGD HEMORRHOIDECTOMY INT AND XTRNL 2/> COLUMN/JULIENNE 03/06/2010 HERNIA REPAIR HX PAST SURGICAL HISTORY OF Late Hernia repair PAST SURGICAL HISTORY OF 2011 polyp vocal cord STENT PLACEMENT Left 05/14/2020 [facility]-left circumflex THROAT SURGERY PROCEDURE UNLISTED 12/27/2012 polyp vocal cord TONSILLECTOMY HX TOTAL ABDOMINAL HYSTERECT W/WO RMVL TUBE OVARY 1997 [facility] AND LSO - benign indication (endometrial implants) - 1997 VAGINAL HYSTERECTOMY X-RAY LUMBAR SPINE AP AND LAT 08/28/2015 [facility]-degenerative changes ALLERGIES Doxycycline Hcl MEDICATIONS cholecalciferol (VITAMIN D3) 5,000 unit tab Take 1 tablet by mouth once daily. pantoprazole DR (PROTONIX) 40 mg tablet Take 1 tablet by mouth two times a day. pravastatin (PRAVACHOL) 20 mg tablet Take 1 tablet by mouth once daily. traZODone (DESYREL) 150 mg tablet Take 1 tablet by mouth daily at bedtime. sertraline (ZOLOFT) 50 mg tablet Take 1 tablet by mouth once daily. tiZANidine HCl (ZANAFLEX) 4 mg capsule EVERY 8 HOURS HYDROcodone-acetaminophen (NORCO) 5-325 mg per tablet Take 1 tablet by mouth two times a day. cyanocobalamin (VITAMIN B-12) 1,000 mcg tab Take 1 tablet by mouth once daily. ascorbic acid, vitamin C, (VITAMIN C) 500 mg tablet Take 1 tablet by mouth once daily. apixaban (ELIQUIS) 5 mg tab(s) Take 5 mg by mouth twice daily. gabapentin (NEURONTIN) 100 mg capsule Take 100 mg by mouth twice daily. folic acid/multivit-min/lutein (CENTRUM SILVER ORAL) Take by mouth once daily. metoprolol succinate ER (TOPROL XL) 50 mg 24 hr tablet Take 50 mg by mouth once daily. BIOTIN ORAL Take 1 tablet by mouth once daily. 500 mg FAMILY HISTORY Problem Relation Age of Onset Diabetes Mother other (NE) Mother other (NE) Father COPD Sister Emphysema Sister No Known Problems Brother No Known Problems Maternal Grandmother No Known Problems Maternal Grandfather No Known Problems Paternal Grandmother No Known Problems Paternal Grandfather No Known Problems Daughter Social History Tobacco Use Smoking status: Every Day Current packs/day: 1.00 Average packs/day: 1 pack/day for 30.0 years (30.0 ttl pk-yrs) Types: Cigarettes Smokeless tobacco: Never Vaping Use Vaping status: Never Used Substance Use Topics Alcohol use: Yes Comment: rare - 1 dr (more content not included)... [facility] 02-14-2025 History of Present illness Narrative CC: Patient presents with: Recheck: 6 month follow up HPI Henny Damian is a 69 year old female who presents today for routine follow up. Recording using [employer] software for draft documentation of the visit was discussed with the patient/authorized senior patient account representative; all questions welcomed and answered. Patient/authorized senior patient account representative agreed to proceed Atrial Fibrillation: - Well-controlled; denies palpitations, chest pain, or dyspnea. - Taking Eliquis and metoprolol. - Last seen by [facility] several months ago; needs to schedule a follow-up. CAD and HLD: - Noted slightly low blood pressure readings over the past two months at Dr. Arreola's office but at goal in office. - Denies dizziness or syncope chest pain, SOB, edema, or headaches. - Does not monitor blood pressure at home. - Adheres to a low-fat, low-salt diet. Depression and Insomnia: - Well-controlled with sertraline 50 mg daily and trazodone at bedtime. - No suicidal ideation or major stressors; reports good sleep quality. - Denies alcohol or drug use. GERD: - Well-controlled with pantoprazole. - Denies heartburn, dysphagia, nausea, or abdominal pain. Restless Leg Syndrome: - Has not been taking iron supplements due to constipation. - Denies increased restlessness in legs at night. - Consumes iron-fortified foods like bread and cereal. Pre-Diabetes: - diet controlled - Denies increased thirst, hunger, or urination. - No new numbness or symptoms of hypoglycemia. Chronic Pain: - Managed with gabapentin and Shelby prescribed by Dr. Arreola. - Engages in daily stretching and frequent stair climbing. Tobacco Use: - Smokes 14-15 cigarettes per day. - Reports a cough, especially at night. - denies SOB, wheezing, fever, chills, or exercise intolerance. REVIEW OF SYSTEMS See HPI PAST MEDICAL HISTORY Diagnosis Date Arthritis Atrial fibrillation (HCC) had stent placement Coronary artery disease COVID-19 05/2022 Depression GERD (gastroesophageal reflux disease) Hayfever Hemorrhoid History of transfusion PAST SURGICAL HISTORY Procedure Laterality Date ABDOMINAL SURGERY HX , CLASSIC, ANTE/POST CA 1994 COLONOSCOPY 09/11/2022 repeat in 10 years COLONOSCOPY FLX DX W/COLLJ SPEC WHEN PFRMD 12/19/2018 Colonoscopy COLSC FLX W/RMVL OF TUMOR POLYP LESION SNARE TQ 06/24/2009 polyp at 25cm EGD 09/11/2022 ESOPHAGOGASTRODUODENOSCOPY TRANSORAL DIAGNOSTIC 12/19/2018 EGD HEMORRHOIDECTOMY INT & XTRNL 2/> COLUMN/JULIENNE 03/06/2010 HERNIA REPAIR HX PAST SURGICAL HISTORY OF Late Hernia repair PAST SURGICAL HISTORY OF 2012 polyp vocal cord STENT PLACEMENT Left 05/14/2020 [facility]-left circumflex THROAT SURGERY PROCEDURE UNLISTED 12/27/2012 polyp vocal cord TONSILLECTOMY HX TOTAL ABDOMINAL HYSTERECT W/WO RMVL TUBE OVARY 1997 [facility] & LSO - benign indication (endometrial implants) - 1997 VAGINAL HYSTERECTOMY X-RAY LUMBAR SPINE AP & LAT 08/28/2015 [facility]-degenerative changes ALLERGIES Doxycycline Hcl MEDICATIONS cholecalciferol (VITAMIN D3) 5,000 unit tab Take 1 tablet by mouth once daily. pantoprazole DR (PROTONIX) 40 mg tablet Take 1 tablet by mouth two times a day. pravastatin (PRAVACHOL) 20 mg tablet Take 1 tablet by mouth once daily. traZODone (DESYREL) 150 mg tablet Take 1 tablet by mouth daily at bedtime. sertraline (ZOLOFT) 50 mg tablet Take 1 tablet by mouth once daily. tiZANidine HCl (ZANAFLEX) 4 mg capsule EVERY 8 HOURS HYDROcodone-acetaminophen (NORCO) 5-325 mg per tablet Take 1 tablet by mouth two times a day. cyanocobalamin (VITAMIN B-12) 1,000 mcg tab Take 1 tablet by mouth once daily. ascorbic acid, vitamin C, (VITAMIN C) 500 mg tablet Take 1 tablet by mouth once daily. apixaban (ELIQUIS) 5 mg tab(s) Take 5 mg by mouth twice daily. gabapentin (NEURONTIN) 100 mg capsule Take 100 mg by mouth twice daily. folic acid/multivit-min/lutein (CENTRUM SILVER ORAL) Take by mouth once daily. metoprolol succinate ER (TOPROL XL) 50 mg 24 hr tablet Take 50 mg by mouth once daily. BIOTIN ORAL Take 1 tablet by mouth once daily. 500 mg FAMILY HISTORY Problem Relation Age of Onset Diabetes Mother other (NE) Mother other (NE) Father COPD Sister Emphysema Sister No Known Problems Brother No Known Problems Maternal Grandmother No Known Problems Maternal Grandfather No Known Problems Paternal Grandmother No Known Problems Paternal Grandfather No Known Problems Daughter Social History Tobacco Use Smoking status: Every Day Current packs/day: 1.00 Average packs/day: 1 pack/day for 30.0 years (30.0 ttl pk-yrs) Types: Cigarettes Smokeless tobacco: Never Vaping Use Vaping status: Never Used Substance Use Topics Alcohol use: Yes Comment: rare - 1 drink a few times a year Drug use: Not Currently Types: Marijuana PHYSICAL EXAM BP 120/78 Pulse 64 Resp 16 Wt 71.2 kg (157 lb) SpO2 92% BMI 28.35 kg/m General Appearance: well appearing, in no acute distress, alert Pysch: mood and affect broad and appropriate Eyes: conjunctiva pink and moist, no icterus, sclera white, non-injected Lungs: Lungs with faint expiratory wheezing that improves with cough. No rhonchi or rales. Heart: RRR without murmur, gallop, or rubs. No ectopy Health maintenance reviewed with patient: Hepatitis C Screening Never done Shingrix Vaccine(1 of 2) Never done Advance Directive Discussion due on 10/11/2024 Covid-19 Vaccine() due on 08/16/2025 Annual PCP Team Chronic Disease Visit due on 08/16/2025 Mammogram Screening due on 08/23/2025 LDL Cholesterol due on 08/30/2025 Colorectal Cancer Screening due on 09/11/2025 Lung Cancer Screening due on 09/13/2025 Diabetes Screening due on 08/30/2027 DTaP,Tdap,Td Vaccine(2 - Td or Tdap) due on 07/04/2029 Lipid Screening due on 08/30/2029 RSV Vaccine(1 - 1-dose 75+ series) due on 2030 Bone Density Screening Completed Influenza Vaccine Completed Pneumococcal Vaccine: 50+ Completed DATA REVIEWED: No new labs Assessment/Plan 1. Paroxysmal A-fib (HCC) (I48.0) 2. 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 (I25.10) - Atrial fibrillation and CAD are stable. - Continue Eliquis for anticoagulation and metoprolol for rate control. - Advised patient to schedule follow-up with [facility]. 3. Mixed hyperlipidemia (E78.2) - Stable on pravastatin. - low fat diet encouraged with regular aerobic exercise and weight loss. 4. Wheezing (R06.2) - Wheezing noted on auscultation, improved after coughing. - patient denies any shortness of breath, concerns, or want for any further medications for COPD or breathing. States she is fine. Discussed with her that with the wheezing it indicates she is having some difficulty but I will have her come back in 3 months during summer to assess her during heat temperatures as well. Patient agreeable to this and will think about coming back in to discuss COPD testing management earlier then this - Discussed potential for COPD due to long-term smoking history. - Educated patient on spirometry testing available at the [facility] to assess pulmonary function. 5. Tobacco use (Z72.0) - Currently smoking 14-15 cigarettes per day. - Discussed risks associated with smoking, including increased risk of heart attack, stroke, and cancer. - Advised against switching to vaping due to its own health risks. - Discussed smoking cessation options including nicotine patches and Chantix. - declined cessation at this time. - next low dose CT lung scan due this september 6. Prediabetes (R73.03) - No symptoms of hyperglycemia or hypoglycemia reported. - Ordered hemoglobin A1c to monitor glycemic control. 7. Restless legs syndrome (RLS) (G25.81) - Patient discontinued iron supplement due to constipation. - Educated on dietary sources of iron and recommended [id number] chewable iron supplements. - Ordered CBC to assess iron levels. 8. Insomnia, unspecified type (G47.00) 9. Anxiety with depression (F41.8) 10. Moderate episode of recurrent major depressive disorder (HCC) (F33.1) - Insomnia and depression well-controlled on sertraline 50 mg daily and trazodone at bedtime. - No suicidal ideation or major stressors reported. 11. Iron deficiency (E61.1) - Patient not currently taking prescribed iron supplement. - Ordered CBC to evaluate iron status. 12. Other chronic pain (G89.29) - Managed with gabapentin and Shelby as prescribed by Dr. Arreola. - Engaging in daily stretching and moderate physical activity. 13. Gastro-esophageal reflux disease without esophagitis (K21.9) - GERD symptoms well-controlled on pantoprazole. - No dysphagia, nausea, or abdominal pain reported. Prescription instructions reviewed with patient as applicable. Potential red flag symptoms discussed with the patient. Reviewed appropriate action plan to take if red flag symptoms occur. Patient agreeable to treatment plan. Kate Cervantes APRN.CNP documented in this encounter [facility] 10-09-2024 History of Present illness Narrative Radiology Service Progress Note PATIENT NAME: Henny Damian DATE OF SERVICE: October 09, 2024 TIME: 2:26 PM PATIENT IDENTITY VERIFICATION COMPLETED USING TWO (2) IDENTIFIERS: Name and Date of confirmed by patient verbally. FALL SCREENING: Has the patient had 2 falls in the last year or 1 fall with injury or currently using an Ambulatory Assistive Device (Walker, Cane, Wheelchair, Crutches, etc.)? No PATIENT GENDER DATA: Female. status: : No status: NO. PATIENT RELEVANT IMPLANT DATA REVIEWED: Not Applicable PATIENT PRESENTS WITH AN IMPLANTABLE OR ATTACHED MANUFACTURING OPERATIONS MANAGER: No RADIOLOGY DEPARTMENT: Bone Density PERIPHERAL IV DATA: Not applicable SIGNED BY: RT Nir(Mariann) October 09, 2024 2:26 PM documented in this encounter [facility] 10-09-2024 Note HNO ID: [id number] Author: CALIN PETE RT(R) Service: ? Author Type: Technologist Type: Progress Notes Filed: 10/09/2024 14:35 Note Text: Radiology Service Progress Note PATIENT NAME: Henny Damian DATE OF SERVICE: October 09, 2024 TIME: 2:26 PM PATIENT IDENTITY VERIFICATION COMPLETED USING TWO (2) IDENTIFIERS: Name and Date of confirmed by patient verbally. FALL SCREENING: Has the patient had 2 falls in the last year or 1 fall with injury or currently using an Ambulatory Assistive Device (Walker, Cane, Wheelchair, Crutches, etc.)? No PATIENT GENDER DATA: Female. status: : No status: NO. PATIENT RELEVANT IMPLANT DATA REVIEWED: Not Applicable PATIENT PRESENTS WITH AN IMPLANTABLE OR ATTACHED MANUFACTURING OPERATIONS MANAGER: No RADIOLOGY DEPARTMENT: Bone Density PERIPHERAL IV DATA: Not applicable SIGNED BY: RT Nir(Mariann) October 09, 2024 2:26 PM [facility] 09-13-2024 History of Present illness Narrative Radiology Service Progress Note PATIENT NAME: Henny Damian DATE OF SERVICE: September 13, 2024 TIME: 2:34 PM PATIENT IDENTITY VERIFICATION COMPLETED USING TWO (2) IDENTIFIERS: Name and Date of confirmed by patient verbally. FALL SCREENING: Has the patient had 2 falls in the last year or 1 fall with injury or currently using an Ambulatory Assistive Device (Walker, Cane, Wheelchair, Crutches, etc.)? No PATIENT GENDER DATA: Female. status: : No status: NO. PATIENT RELEVANT IMPLANT DATA REVIEWED: Not Applicable PATIENT PRESENTS WITH AN IMPLANTABLE OR ATTACHED MANUFACTURING OPERATIONS MANAGER: No RADIOLOGY DEPARTMENT: CT; Exam(s) Completed: Lung Screening PERIPHERAL IV DATA: Not applicable SIGNED BY: RT Maxime(R) September 13, 2024 2:34 PM documented in this encounter [facility] 09-13-2024 Note HNO ID: [id number] Author: MACKENZIE JARA RT(R) Service: ? Author Type: Car Wash Supervisor Type: Progress Notes Filed: 09/13/2024 14:35 Note Text: Radiology Service Progress Note PATIENT NAME: Henny Damian DATE OF SERVICE: September 13, 2024 TIME: 2:34 PM PATIENT IDENTITY VERIFICATION COMPLETED USING TWO (2) IDENTIFIERS: Name and Date of confirmed by patient verbally. FALL SCREENING: Has the patient had 2 falls in the last year or 1 fall with injury or currently using an Ambulatory Assistive Device (Walker, Cane, Wheelchair, Crutches, etc.)? No PATIENT GENDER DATA: Female. status: : No status: NO. PATIENT RELEVANT IMPLANT DATA REVIEWED: Not Applicable PATIENT PRESENTS WITH AN IMPLANTABLE OR ATTACHED MANUFACTURING OPERATIONS MANAGER: No RADIOLOGY DEPARTMENT: CT; Exam(s) Completed: Lung Screening PERIPHERAL IV DATA: Not applicable SIGNED BY: RT Maxime(R) September 13, 2024 2:34 PM [facility] 08-28-2024 Wojciech Briceno APRN.CNP - 08/28/2024 9:[address] Lung Screening CPT code 61446, diagnosis code Z12.[address] Lung Screen Results The CT scan that you will have done will show if you have any nodules (small spots) in your lungs that are suspicious for cancer. Around 90% of the patients who have this scan done are found to have at least one nodule. Most nodules are benign (not cancer) and of no harm to you at all. A specialist will make a scientific evaluation about whether or not a nodule is worrisome based on its size and shape. The radiologist who will read your scan will put it into one of four categories: LUNG-RADS Category Description Overall Probability of Malignancy Recommended Follow-Up 1 Negative No nodules and definitely benign (non-cancerous nodules) Essentially 0. 1 Year - Follow-up Low dose CT 2 Benign Appearance or Behavior Nodules with a very low likelihood of becoming cancer due to size or lack of growth Less than 1% 1 Year - Follow-up Low dose CT 3 Probably Benign Probably benign finding, short term follow-up recommended 1 to 2% 6 Months - Follow-up Low dose CT 4 Suspicious Findings for which additional diagnostic testing and/or biopsy is recommended Will be calculated based on nodule characteristics. Dependent on what is seen on the exam. (3 month follow-up CT, PET-CT, or biopsy) 0 Incomplete Findings suggestive of an inflammatory or infectious process AND/OR part of the lung cannot be evaluated Additional lung cancer screening CT imaging needed AND/OR comparison with prior chest CT imaging At times, we may see something outside of the lungs on the scan that could be a health concern. Below are some of the most common findings: S Clinically Significant or Potentially Clinically Significant Findings (non lung cancer) Referral or additional imaging/labs depending on result. Approximately 10% of people receive this result. Coronary Artery Calcifications (Moderate or Severe) - Referral to cardiology for further work-up and recommendations. Thyroid Nodule - TSH level and Thyroid Ultrasound dependent on size, referral to endocrinology. Adrenal Nodule - blood work and referral to endocrinology. Others Lung Cancer Screening hotline: [phone] Lung Cancer Screening [phone] Billing Questions: or [email or web address] Providers: (Libby Wright PA-C; Radha Fay CNP; Cinda Vazquez CNP, Micki Sanders CNP; Mackenzie Simmons CNP; Mikaela Phillips PA-C; Wojciech Carrero CNP; Hope Travis CNP; Lisa Acuna CNP; Norma Linda CNP; Edda Mina PA-C; Jeanie Enriquez PA-C; Lesia Cervantes CNP; Savannah Chapin CNP; Anisha Barraza CNP): [phone] documented in this encounter [facility] 08-28-2024 Note HNO ID: [id number] Author: WOJCIECH CARRERO APRN.CNP Service: ? Author Type: Nurse Practitioner Type: Progress Notes Filed: 08/28/2024 16:06 Note Text: LUNG SCREENING VISIT PRIMARY CARE PHYSICIAN: Brook Horner MD PULMONARY PROVIDER: none Results will be communicated via letter or electronic record if applicable. Visit Delivery: In Person Patient Visit Type: New to Screening Current or Ex-smoker? [Current Exam Type: baseline LDCT Number of Pack Years: 38 Current smoker (=0) REQUESTER: The referring provider advised the patient to have screening. HISTORY OF PRESENT ILLNESS: Henny Damian is a 68 year old Active smoker who presents for lung screening. Currently smoking 14-20 cigarettes/day. Benign polyp on vocal cord. 05/2020 coronary stent-left circumflex, follows with cardiology [facility]. Respiratory symptoms include: SOB: Yes with walking Chest tightness: No Coughing: Yes: With mucus Clear Hemoptysis: No Wheezing: Yes Fever/Chills: No Recent Respiratory Infection: No Unintentional weight loss: No Last 6 Encounter Wt Readings: Date: Wt: 08/28/2024 72 kg (158 lb 12.8 oz) 08/23/2024 72.1 kg (159 lb) 08/16/2024 71.2 kg (157 lb) 12/29/2023 77.4 kg (170 lb 9.6 oz) 08/30/2023 74.8 kg (165 lb) 05/25/2023 74.8 kg (165 lb) ECOG PERFORMANCE STATUS: 0- Fully active, able to carry on all pre-disease performance w/o restriction. Modified Medical [employer]one Dyspnea Scale (MMRC) I only get breathless with strenous exercise 0 PAST MEDICAL HISTORY Diagnosis Date Arthritis Atrial fibrillation (HCC) had stent placement Coronary artery disease COVID-19 05/2022 Depression GERD (gastroesophageal reflux disease) Hayfever Hemorrhoid History of transfusion PAST SURGICAL HISTORY Procedure Laterality Date ABDOMINAL SURGERY HX , CLASSIC, ANTE/POST CA 1994 COLONOSCOPY 09/11/2022 repeat in 10 years COLONOSCOPY FLX DX W/COLLJ SPEC WHEN PFRMD 12/19/2018 Colonoscopy COLSC FLX W/RMVL OF TUMOR POLYP LESION SNARE TQ 06/24/2009 polyp at 25cm EGD 09/11/2022 ESOPHAGOGASTRODUODENOSCOPY TRANSORAL DIAGNOSTIC 12/19/2018 EGD HEMORRHOIDECTOMY INT AND XTRNL 2/> COLUMN/JULIENNE 03/06/2010 HERNIA REPAIR HX PAST SURGICAL HISTORY OF Late Hernia repair PAST SURGICAL HISTORY OF 2011 polyp vocal cord STENT PLACEMENT 05/14/2020 [facility] THROAT SURGERY PROCEDURE UNLISTED 12/27/2012 polyp vocal cord TONSILLECTOMY HX TOTAL ABDOMINAL HYSTERECT W/WO RMVL TUBE OVARY 1997 [facility] AND [facility] - benign indication (endometrial implants) - 1997 VAGINAL HYSTERECTOMY X-RAY LUMBAR SPINE AP AND LAT 08/28/2015 [facility]-degenerative changes FAMILY HISTORY Problem Relation Age of Onset Diabetes Mother other (NE) Mother other (NE) Father COPD Sister Emphysema Sister No Known Problems Brother No Known Problems Maternal Grandmother No Known Problems Maternal Grandfather No Known Problems Paternal Grandmother No Known Problems Paternal Grandfather No Known Problems Daughter tiZANidine HCl (ZANAFLEX) 4 mg capsule EVERY 8 HOURS ferrous sulfate (FEROSUL) 325 mg (65 mg iron) tablet Take 325 mg by mouth. pravastatin (PRAVACHOL) 20 mg tablet Take 1 tablet by mouth once daily. sertraline (ZOLOFT) 50 mg tablet Take 1 tablet by mouth once daily. pantoprazole DR (PROTONIX) 40 mg tablet Take 1 tablet by mouth two times a day. traZODone (DESYREL) 150 mg tablet Take 1 tablet by mouth daily at bedtime. HYDROcodone-acetaminophen (NORCO) 5-325 mg per tablet Take 1 tablet by mouth two times a day. cyanocobalamin (VITAMIN B-12) 1,000 mcg tab Take 1 tablet by mouth once daily. ascorbic acid, vitamin C, (VITAMIN C) 500 mg tablet Take 1 tablet by mouth once daily. apixaban (ELIQUIS) 5 mg tab(s) Take 5 mg by mouth twice daily. gabapentin (NEURONTIN) 100 mg capsule Take 100 mg by mouth twice daily. folic acid/multivit-min/lutein (CENTRUM SILVER ORAL) Take by mouth once daily. cholecalciferol (VITAMIN D3) 5,000 unit tab Take 1 tablet by mouth once daily. metoprolol succinate ER (TOPROL XL) 50 mg 24 hr tablet Take 50 mg by mouth once daily. BIOTIN ORAL Take 1 tablet by mouth once daily. 500 mg ALLERGIES Allergen Reactions Doxycycline Hcl Other: See Comments insomnia The medications and allergies were reviewed and reconciled for this patient and deemed current. Lung Cancer Risk Factors: 1.Tobacco Use: Start Age 18, Quit Age: N/A, Average packs per day 0.75, Pack Years 38.25 2. Passive Smoke Exposure: Yes, as a Child and as an Adult 3. Personal hx of malignancy: No, Type of Cancer: 4. Significant exposures (1 year or more of exposure): None, 5. Race: White 6. Education: High School Graduate 7. BMI:Body mass index is 28.67 kg/m?. Patient-entered Height: 5'2 Patient-entered Weight: 158 pounds 8. COPD: Yes 9. Pneumonia in the past 5 years: No 10. Is there a history of lung cancer in a first degree relative? No (more content not included)... [facility] 08-28-2024 History of Present illness Narrative Images from the original note were not included. LUNG SCREENING VISIT PRIMARY CARE PHYSICIAN: Brook Horner MD PULMONARY PROVIDER: none Results will be communicated via letter or electronic record if applicable. Visit Delivery: In Person Patient Visit Type: New to Screening Current or Ex-smoker? [Current Exam Type: baseline LDCT Number of Pack Years: 38 Current smoker (=0) REQUESTER: The referring provider advised the patient to have screening. HISTORY OF PRESENT ILLNESS: Henny Damian is a 68 year old Active smoker who presents for lung screening. Currently smoking 14-20 cigarettes/day. Benign polyp on vocal cord. 05/2020 coronary stent-left circumflex, follows with cardiology [facility]. Respiratory symptoms include: SOB: Yes with walking Chest tightness: No Coughing: Yes: With mucus Clear Hemoptysis: No Wheezing: Yes Fever/Chills: No Recent Respiratory Infection: No Unintentional weight loss: No Last 6 Encounter Wt Readings: Date: Wt: 08/28/2024 72 kg (158 lb 12.8 oz) 08/23/2024 72.1 kg (159 lb) 08/16/2024 71.2 kg (157 lb) 12/29/2023 77.4 kg (170 lb 9.6 oz) 08/30/2023 74.8 kg (165 lb) 05/25/2023 74.8 kg (165 lb) ECOG PERFORMANCE STATUS: 0- Fully active, able to carry on all pre-disease performance w/o restriction. Modified Medical [employer] Dyspnea Scale (MMRC) I only get breathless with strenous exercise 0 PAST MEDICAL HISTORY Diagnosis Date Arthritis Atrial fibrillation (HCC) had stent placement Coronary artery disease COVID-19 05/2022 Depression GERD (gastroesophageal reflux disease) Hayfever Hemorrhoid History of transfusion PAST SURGICAL HISTORY Procedure Laterality Date ABDOMINAL SURGERY HX , CLASSIC, ANTE/POST CA 1994 COLONOSCOPY 09/11/2022 repeat in 10 years COLONOSCOPY FLX DX W/COLLJ SPEC WHEN PFRMD 12/19/2018 Colonoscopy COLSC FLX W/RMVL OF TUMOR POLYP LESION SNARE TQ 06/24/2009 polyp at 25cm EGD 09/11/2022 ESOPHAGOGASTRODUODENOSCOPY TRANSORAL DIAGNOSTIC 12/19/2018 EGD HEMORRHOIDECTOMY INT & XTRNL 2/> COLUMN/JULIENNE 03/06/2010 HERNIA REPAIR HX PAST SURGICAL HISTORY OF Late Hernia repair PAST SURGICAL HISTORY OF 2011 polyp vocal cord STENT PLACEMENT 05/14/2020 [facility] THROAT SURGERY PROCEDURE UNLISTED 12/27/2012 polyp vocal cord TONSILLECTOMY HX TOTAL ABDOMINAL HYSTERECT W/WO RMVL TUBE OVARY 1997 RIVER & LSO - benign indication (endometrial implants) - 1997 VAGINAL HYSTERECTOMY X-RAY LUMBAR SPINE AP & LAT 08/28/2015 wch-degenerative changes FAMILY HISTORY Problem Relation Age of Onset Diabetes Mother other (NE) Mother other (NE) Father COPD Sister Emphysema Sister No Known Problems Brother No Known Problems Maternal Grandmother No Known Problems Maternal Grandfather No Known Problems Paternal Grandmother No Known Problems Paternal Grandfather No Known Problems Daughter tiZANidine HCl (ZANAFLEX) 4 mg capsule EVERY 8 HOURS ferrous sulfate (FEROSUL) 325 mg (65 mg iron) tablet Take 325 mg by mouth. pravastatin (PRAVACHOL) 20 mg tablet Take 1 tablet by mouth once daily. sertraline (ZOLOFT) 50 mg tablet Take 1 tablet by mouth once daily. pantoprazole DR (PROTONIX) 40 mg tablet Take 1 tablet by mouth two times a day. traZODone (DESYREL) 150 mg tablet Take 1 tablet by mouth daily at bedtime. HYDROcodone-acetaminophen (NORCO) 5-325 mg per tablet Take 1 tablet by mouth two times a day. cyanocobalamin (VITAMIN B-12) 1,000 mcg tab Take 1 tablet by mouth once daily. ascorbic acid, vitamin C, (VITAMIN C) 500 mg tablet Take 1 tablet by mouth once daily. apixaban (ELIQUIS) 5 mg tab(s) Take 5 mg by mouth twice daily. gabapentin (NEURONTIN) 100 mg capsule Take 100 mg by mouth twice daily. folic acid/multivit-min/lutein (CENTRUM SILVER ORAL) Take by mouth once daily. cholecalciferol (VITAMIN D3) 5,000 unit tab Take 1 tablet by mouth once daily. metoprolol succinate ER (TOPROL XL) 50 mg 24 hr tablet Take 50 mg by mouth once daily. BIOTIN ORAL Take 1 tablet by mouth once daily. 500 mg ALLERGIES Allergen Reactions Doxycycline Hcl Other: See Comments insomnia The medications and allergies were reviewed and reconciled for this patient and deemed current. Lung Cancer Risk Factors: 1.Tobacco Use: Start Age 18, Quit Age: N/A, Average packs per day 0.75, Pack Years 38.25 2. Passive Smoke Exposure: Yes, as a Child and as an Adult 3. Personal hx of malignancy: No, Type of Cancer: 4. Significant exposures (1 year or more of exposure): None, 5. Race: White 6. Education: High School Graduate 7. BMI:Body mass index is 28.67 kg/m . Patient-entered Height: 5'2 Patient-entered Weight: 158 pounds 8. COPD: Yes 9. Pneumonia in the past 5 years: No 10. Is there a history of lung cancer in a first degree relative? No 11. Is there a history of lung cancer in a non-first degree relative? No 12. Is there a history of any other cancer in a first degree relative? No Health Maintenance Immunization History Administered Date(s) Administered COVID-19 original vaccine, full dose, monovalent (MODERNA) 02/06/2021 09/05/2021 COVID-19 vaccine, age 12+ yr, bivalent (MODERNA) 01/23/2023 influenza (HD-IIV3) vaccine, age 65+ yr, high dose, trivalent, PF (FLUZONE HIGH-DOSE) 08/16/2024 influenza (HD-IIV4) vaccine, age 65+ yr, high dose, quadrivalent, PF (FLUZONE HIGH-DOSE) 09/24/2021 06/26/2022 08/30/2023 influenza (IIV4) vaccine, age 6 mo - 64 yr, quadrivalent (AFLURIA, FLULAVAL, FLUZONE) 08/12/2018 08/16/2019 08/29/2020 pneumococcal conjugate (PCV20) vaccine, 20 valent (PREVNAR 20) 07/30/2022 pneumococcal polysaccharide (PPV23) vaccine, 23 valent (PNEUMOVAX 23) 07/26/2015 tetanus diphtheria pertussis (Tdap) vaccine, age 7+ yr (ADACEL, BOOSTRIX) 07/04/2019 Colonoscopy: 09/11/2022 Mammogram: 08/24/2024 DATA REVIEW I have directly visualized the testing documented: none Prior Imaging: Last CT/CTA Chest/Lungs No resulted procedures found. Last CT Chest - Impression Only No resulted procedures found. Last XR Chest - Impression Only No resulted procedures found. Pulmonary Function Testing: No textual results found for the specified procedure(s). PHYSICAL EXAM: BP 128/70 (BP Site: Right Arm, BP Position: Sitting, BP Cuff Size: Regular Adult) Pulse 62 Wt 72 kg (158 lb 12.8 oz) SpO2 91% BMI 28.67 kg/m Deferred ASSESSMENT and RECOMMENDATIONS: 1. Screening for lung cancer: Six year risk for lung cancer: 6.45% [email or web address]://www.uiu/tiny/[email or web address] https://youtu.be/[email or web address]; I have determined that the patient is eligible for a low dose CT based on age, absence of signs or symptoms of lung cancer, and total pack years: Yes. The patient and I engaged in shared decision making, including the use of one or more decision aids, to include benefits, harms, follow-up diagnostic testing, over-diagnosis, false positive rate, and total radiation exposure. The patient understands and feels comfortable with it: Yes. The patient was counseled on the importance of adherence to annual LDCT lung cancer screening, impact of comorbidities and ability or willingness to undergo diagnosis and treatment. The patient understands and feels comfortable with it:Yes. 2. Nicotine dependence: The patient was counseled on the importance of smoking cessation if current smoker and, if appropriate, offered additional tobacco cessation counseling services - Smoking Cessation Counseling. SMOKING CESSATION COUNSELING Smoking cessation methods including Nicotine Replacement Therapies and Behavior Modification were discussed with the patient and assistance offered. The medical conditions adversely affected by cigarette use include:COPD, Emphysema, and Lung Cancer. The patient is currently not ready to quit. I personally spent 3 minutes in counseling. The time spent in smoking cessation counseling is exclusive of any other counseling during this visit. Wojciech Carrero APRN.CNP NPI #: [id number] 9:00 AM . documented in this encounter [facility] 08-23-2024 Instructions Kelley Barrera APRN.CNP - 08/23/2024 3:05 PM EST BONE MINERAL DENSITY PATIENT INSTRUCTIONS ======== Bone mineral density testing measures the amount of calcium in certain parts of your bones. This information determines how strong your bones are. The test is used to detect osteoporosis, a disease in which the bone's mineral content and density are low, increasing a person's risk of fractures. The lumbar spine (lower back) and the hip are the skeletal sites usually examined. For the test, remember that: 1. You cannot take this test if you are . 2. Eat a normal diet on the day of the test. 3. Take your medications as you normally would. 4. DO NOT take calcium supplements (such as Tums) for 24 hours before the test. 5. On the day of the test, leave valuables (jewelry or credit cards) at home. 6. The test should be performed prior to oral, rectal or IV contrast studies, or at least 7 days after any of these studies. For the test, you may be asked to wear a hospital gown. You will lie on your back, on a padded table, in a comfortable position. Generally, you can resume your usual activities immediately. From [facility]'s Tobacco Cessation website: Our comprehensive smoking cessation program contains three main modules. These modules include the following: One-on-one weekly 30-minute counseling sessions with a respiratory therapist. Education about the various nicotine replacement therapies and medications and alternative methods used for cessation. Guidance and support; plus, we will contact your physician to obtain any required prescriptions for medications related to cessation. Insurance is accepted for this six-week program. Please check with your provider about whether your plan covers tobacco cessation programs. In the event your insurance provider does not cover your six-week smoking cessation program, we encourage you to contact us at your earliest convenience by calling . One of our friendly team members will be happy to help you with your financial plan. Contact [phone] for more information. [place] Tobacco Program Visit [email or web address] or call 0-577-XPUS-NOW documented in this encounter [facility] 08-23-2024 Note HNO ID: [id number] Author: KELLEY BARRERA APRN.CNP Service: ? Author Type: Nurse Practitioner Type: Progress Notes Filed: 08/23/2024 15:15 Note Text: Mobility Specialist offered: Patient declinesMaria Isabel Inman is a 68 year old who presents for an annual gynecologic exam without complaints. 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 Age at Menarche: Age at First : Age at Menopause: Senior Clinical Research Scientist History Comments: Sexual Activity: Not Currently; No partner data on record Contraception: No contraception data on record PAST MEDICAL HISTORY Diagnosis Date Arthritis Atrial fibrillation (HCC) had stent placement Coronary artery disease COVID-19 05/2022 Depression GERD (gastroesophageal reflux disease) Hayfever Hemorrhoid History of transfusion PAST SURGICAL HISTORY Procedure Laterality Date ABDOMINAL SURGERY HX , CLASSIC, ANTE/POST CA 1994 COLONOSCOPY 09/11/2022 repeat in 10 years COLONOSCOPY FLX DX W/COLLJ SPEC WHEN PFRMD 12/19/2018 Colonoscopy COLSC FLX W/RMVL OF TUMOR POLYP LESION SNARE TQ 06/24/2009 polyp at 25cm EGD 09/11/2022 ESOPHAGOGASTRODUODENOSCOPY TRANSORAL DIAGNOSTIC 12/19/2018 EGD HEMORRHOIDECTOMY INT AND XTRNL 2/> COLUMN/JULIENNE 03/06/2010 HERNIA REPAIR HX PAST SURGICAL HISTORY OF Late Hernia repair PAST SURGICAL HISTORY OF 2011 polyp vocal cord STENT PLACEMENT 05/14/2020 [facility] THROAT SURGERY PROCEDURE UNLISTED 12/27/2012 polyp vocal cord TONSILLECTOMY HX TOTAL ABDOMINAL HYSTERECT W/WO RMVL TUBE OVARY 1997 RIVER AND LSO - benign indication (endometrial implants) - 1997 VAGINAL HYSTERECTOMY X-RAY LUMBAR SPINE AP AND LAT 08/28/2015 wch-degenerative changes FAMILY HISTORY Problem Relation Age of Onset Diabetes Mother other (NE) Mother other (NE) Father COPD Sister Emphysema Sister SOCIAL HISTORY Social History Tobacco Use Smoking status: Every Day Current packs/day: 1.00 Average packs/day: 1 pack/day for 30.0 years (30.0 ttl pk-yrs) Types: Cigarettes Smokeless tobacco: Never Vaping Use Vaping status: Never Used Substance Use Topics Alcohol use: Yes Comment: rare - 1 drink a few times a year Drug use: No REVIEW OF SYSTEMS Abdomen: No abdominal pain, nausea, vomiting, diarrhea, or constipation. No bloating, early satiety, indigestion, or increased flatulence. Bladder: No dysuria, gross hematuria, urinary frequency, urinary urgency, or incontinence Breast: No breast lumps, nipple d/c, overlying skin changes, redness or skin retraction Allergies and current medication updated:Yes SENSITIVE EXAM: The sensitive examination was discussed with the Patient or Patient's Authorized Blow Mold Operator. As applicable, any other physician, advance practice provider, medical student, or other health professional student that will be observing or involved in the sensitive examination for educational or training purposes was discussed with the Patient or Authorized Blow Mold Operator. The Patient or Authorized Blow Mold Operator has agreed to proceed with the sensitive examination. (Sensitive examination includes inspection and/or palpation of the breasts, pelvis, prostate and anorectal regions). EXAM: BP 100/64 Ht 5' 2.402 (1.59m) Wt 159 lb (72.1kg) BMI 28.71 kg/(m2). GENERAL: pleasant, female in no apparent distress HEENT: Normocephalic, atraumatic, mucus membranes moist, and no lesions NECK: Supple, full range of motion, no adenopathy, and thyroid normal DERMATOLOGY: Normal, without lesions, non-icteric, and non-hirsute BREAST: soft, non-tender, symmetric, no dominant mass, normal nipple-areolar complex, no lymphadenopathy, and no nipple discharge CHEST: Normal inspiratory effort ABDOMEN: soft, non-tender, and no masses PELVIC: external genitalia normal, normal Bartholin's glands, urethra, [place]'s glands, no vulvar lesions, cervix surgically absent, good vaginal support, physiologic discharge present, normal appearing perineal body and perianal region, atrophic changes BIMANUAL: no adnexal masses, non-tender, and uterus surgically absent RECTOVAGINAL: deferred. NEURO: alert and oriented x3,exam grossly non-focal EXTREMITIES: normal ASSESSMENT/PLAN: 1) Health maintenance: Pap/HPV screening no longer needed Mammogram ordered Mammogram up to date Nutrition, exercise and routine health maintenance exams reviewed. Calcium/Vitamin D supplementation information provided. Smoking cessation encouraged - has decreased. Colon cancer screening: UTD 2021 TSH/lipids/glucose: followed by PCP BMD: normal 2020, ordered 2) Follow up (more content not included)... [facility] 08-23-2024 History of Present illness Narrative Mobility Specialist offered: Patient declines. Henny is a 68 year old who presents for an annual gynecologic exam without complaints. 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 Age at Menarche: Age at First : Age at Menopause: Senior Clinical Research Scientist History Comments: Sexual Activity: Not Currently; No partner data on record Contraception: No contraception data on record PAST MEDICAL HISTORY Diagnosis Date Arthritis Atrial fibrillation (HCC) had stent placement Coronary artery disease COVID-19 05/2022 Depression GERD (gastroesophageal reflux disease) Hayfever Hemorrhoid History of transfusion PAST SURGICAL HISTORY Procedure Laterality Date ABDOMINAL SURGERY HX , CLASSIC, ANTE/POST CA 1994 COLONOSCOPY 09/11/2022 repeat in 10 years COLONOSCOPY FLX DX W/COLLJ SPEC WHEN PFRMD 12/19/2018 Colonoscopy COLSC FLX W/RMVL OF TUMOR POLYP LESION SNARE TQ 06/24/2009 polyp at 25cm EGD 09/11/2022 ESOPHAGOGASTRODUODENOSCOPY TRANSORAL DIAGNOSTIC 12/19/2018 EGD HEMORRHOIDECTOMY INT & XTRNL 2/> COLUMN/JULIENNE 03/06/2010 HERNIA REPAIR HX PAST SURGICAL HISTORY OF Late Hernia repair PAST SURGICAL HISTORY OF 2011 polyp vocal cord STENT PLACEMENT 05/14/2020 [facility] THROAT SURGERY PROCEDURE UNLISTED 12/27/2012 polyp vocal cord TONSILLECTOMY HX TOTAL ABDOMINAL HYSTERECT W/WO RMVL TUBE OVARY 1997 RIVER & LSO - benign indication (endometrial implants) - 1997 VAGINAL HYSTERECTOMY X-RAY LUMBAR SPINE AP & LAT 08/28/2015 wch-degenerative changes FAMILY HISTORY Problem Relation Age of Onset Diabetes Mother other (NE) Mother other (NE) Father COPD Sister Emphysema Sister SOCIAL HISTORY Social History Tobacco Use Smoking status: Every Day Current packs/day: 1.00 Average packs/day: 1 pack/day for 30.0 years (30.0 ttl pk-yrs) Types: Cigarettes Smokeless tobacco: Never Vaping Use Vaping status: Never Used Substance Use Topics Alcohol use: Yes Comment: rare - 1 drink a few times a year Drug use: No REVIEW OF SYSTEMS Abdomen: No abdominal pain, nausea, vomiting, diarrhea, or constipation. No bloating, early satiety, indigestion, or increased flatulence. Bladder: No dysuria, gross hematuria, urinary frequency, urinary urgency, or incontinence Breast: No breast lumps, nipple d/c, overlying skin changes, redness or skin retraction Allergies and current medication updated:Yes SENSITIVE EXAM: The sensitive examination was discussed with the Patient or Patient's Authorized Blow Mold Operator. As applicable, any other physician, advance practice provider, medical student, or other health professional student that will be observing or involved in the sensitive examination for educational or training purposes was discussed with the Patient or Authorized Blow Mold Operator. The Patient or Authorized Blow Mold Operator has agreed to proceed with the sensitive examination. (Sensitive examination includes inspection and/or palpation of the breasts, pelvis, prostate and anorectal regions). EXAM: BP 100/64 Ht 5' 2.402 (1.59m) Wt 159 lb (72.1kg) BMI 28.71 kg/(m^2). GENERAL: pleasant, female in no apparent distress HEENT: Normocephalic, atraumatic, mucus membranes moist, and no lesions NECK: Supple, full range of motion, no adenopathy, and thyroid normal DERMATOLOGY: Normal, without lesions, non-icteric, and non-hirsute BREAST: soft, non-tender, symmetric, no dominant mass, normal nipple-areolar complex, no lymphadenopathy, and no nipple discharge CHEST: Normal inspiratory effort ABDOMEN: soft, non-tender, and no masses PELVIC: external genitalia normal, normal Bartholin's glands, urethra, [place]'s glands, no vulvar lesions, cervix surgically absent, good vaginal support, physiologic discharge present, normal appearing perineal body and perianal region, atrophic changes BIMANUAL: no adnexal masses, non-tender, and uterus surgically absent RECTOVAGINAL: deferred. NEURO: alert and oriented x3,exam grossly non-focal EXTREMITIES: normal ASSESSMENT/PLAN: 1) Health maintenance: Pap/HPV screening no longer needed Mammogram ordered Mammogram up to date Nutrition, exercise and routine health maintenance exams reviewed. Calcium/Vitamin D supplementation information provided. Smoking cessation encouraged - has decreased. Colon cancer screening: UTD 2021 TSH/lipids/glucose: followed by PCP BMD: normal 2020, ordered 2) Follow up one year or sooner as needed Kelley Barrera APRN.DEBO documented in this encounter [facility] 08-16-2024 Instructions Kate Cervantes APRN.DEBO - 08/16/2024 3:57 PM EST Screening schedule The following prevention plan is recommended: Hepatitis C Screening Never done Lung Cancer Screening Never done Shingrix Vaccine(1 of 2) Never done Advance Directive Discussion due on 10/11/2023 Influenza Vaccine(1) due on 06/11/2024 Mammogram Screening due on 08/20/2024 WHAT YOU CAN DO TO PREVENT FALLS Many falls can be prevented. By making some changes, you can lower your chances of falling. Four things YOU can do to prevent falls for you* and your caregiver 1. Begin a regular exercise program Exercise is one of the most important ways to lower your chances of falling. It makes you stronger and helps you feel better. Exercises that improve balance and coordination (like Dequan Chi) are the most helpful. Lack of exercise leads to weakness and increases your chances of falling. Ask your doctor or health care provider about the best type of exercise program for you. 2. Have your health care provider review your medicines Have your doctor or pharmacist review all the medicines you take, even [id number] medicines. As you get older, the way medicines work in your body can change. Some medicines, or combinations of medicines, can make you sleepy or dizzy and can cause you to fall. 3. Have your vision checked Have your eyes checked by an eye doctor at least once a year. You may be wearing the wrong glasses or have a condition like glaucoma or cataracts that limits your vision. Poor vision can increase your chances of falling. 4. Make your home safer About half of all falls happen at home. To make your home safer: Remove things you can trip over (like papers, books, clothes, and shoes) from stairs and places where you walk. Remove small throw rugs or use double-sided tape to keep the rugs from slipping. Keep items you use often in cabinets you can reach easily without using a step stool. Have grab bars put in next to your toilet and in the tub or shower. Use non-slip mats in the bathtub and on shower floors. Improve the lighting in your home. As you get older, you need brighter lights to see well. Hang light-weight curtains or shades to reduce glare. Have handrails and lights put in on all staircases. Wear shoes both inside and outside the house. Avoid going barefoot or wearing slippers. For more information, contact: Centers for Disease Control and Prevention www.cdc.gov/injury * This information may not apply if you have certain medical conditions. documented in this encounter [facility] 08-16-2024 History of Present illness Narrative Images from the original note were not included. Henny Damian is a 68 year old female here for a Medicare wellness visit. Medicare Health Risk Assessment General Health Good Exercise: Minutes/Day 30 Exercise: Days/Week 2 Alcohol: Daily Use None - 1 drink a few times a year Alcohol: Drinks/Day N/A Alcohol: 6 or more drinks N/A Feel off balance Chronic back pain results in this and is in PT as ordered by pain mgmt Concerns: Teeth/Dentures Awaiting cap fixed to lower tooth Concerns: Sexual function denies Troubled by feelings denies Frequency: Eating healthy diet Most of the time ADLs requiring help denies Safety precautions in home/vehicle Wears seat belt in car, all steps have handrails, floor clear from clutter/rugs, but has no grab bars in the bathroom Smoke, vape, chews tobacco 1/2-1 ppd Difficulty hearing Denies Difficulty seeing denies Current Providers Specialists: I have reviewed specialist-related care of the patient in the medical record. Pain mgmt - Dr. Arreola Cardiology - Dr. Lawrence Dermatology - [facility] [place] [facility] but sees them yearly Medical/Family history review Reviewed and updated problem list, medical/surgical/family/social history, medications, and allergies. Opioid use review Opioid Medications (last 90 days) 08/16/2024 Opioid Medications hydrocodone/acetaminophen 1 tablet BID ORAL Details Outpatient prescription Prescribed hydrocodone/acetaminophen (last 90 days) Does patient have risk factors for opioid abuse? Yes but no sign of this and is followed by pain mgmt. Pain overview Current pain concerns and treatment plan reviewed. Patient stable on current treatment plan and under the care of a specialist. Anxiety/Depression screening PHQ2 and GAD2 at 0 Recommendation: no further intervention at this time Cognitive screening Cognitive screening reviewed and No further action needed (score 3-5). Functional Observation Was the patient's Timed Up & Go test unsteady or >= 12 seconds? No Advance Care Planning Patient was not able to provide a surrogate decision maker or written advance directives Measurements BP 132/80 Pulse 74 Resp 16 Wt 71.2 kg (157 lb) BMI 27.81 kg/m Vision Screening: Follows with optometry/ophthalmology Assessment/Plan Medicare annual wellness visit, subsequent (Z00.00) - Counseled on healthy diet and regular exercise - Fall avoidance information provided - Personalized prevention plan provided - Discussed need for and benefit of weight loss. BMI 27.81 kg/(m^2) - Smoking cessation encouraged; discussed risks to health and quitting strategies. Patient is not ready to quit - Counseled patient on alcohol intake and associated health risks CC: Patient presents with: Medicare Wellness Exam: Annual Medicare wellness Immunizations: Flu vaccination HPI Henny Damian is a 68 year old female who presents today for medicare wellness and med refills with review of chronic conditions. Depression anxiety and insomnia: Feels well controlled on current treatment Sleep: is described as normal Alcohol use: drinks less than one drink a day Drug use: No Appetite: good Suicidal Thoughts: No suicidal ideation, intent or plan CAD, paroxysmal A-fib, and HLD: Ms. Damian indicates that she is feeling well and denies any symptoms referable to elevated blood pressure. Specifically denies headache, chest pain, palpitations, change in chronic shortness of breath, and peripheral edema. Patient denies any side effects of her medication(s) and is compliant with their regimen. She does not check BP's generally. Henny works out regularly 2 times per week with physical therapy. She watches her diet for sodium, low fat and low cholesterol most of the time. Has routine visit with legal advisor tomorrow. Last 3 Encounter BP Readings: Date: BP: 08/16/2024 132/80 12/29/2023 128/74 08/30/2023 130/68 Prediabetes: Diet controlled, A1c stable at 5.8. Denies any increase in thirst hunger or urination. REVIEW OF SYSTEMS See HPI PAST MEDICAL HISTORY Diagnosis Date Arthritis Atrial fibrillation (HCC) had stent placement Coronary artery disease COVID-19 05/2022 Depression GERD (gastroesophageal reflux disease) Hayfever Hemorrhoid History of transfusion PAST SURGICAL HISTORY Procedure Laterality Date ABDOMINAL SURGERY HX , CLASSIC, ANTE/POST CA 1994 COLONOSCOPY 09/11/2022 repeat in 10 years COLONOSCOPY FLX DX W/COLLJ SPEC WHEN PFRMD 12/19/2018 Colonoscopy COLSC FLX W/RMVL OF TUMOR POLYP LESION SNARE TQ 06/24/2009 polyp at 25cm EGD 09/11/2022 ESOPHAGOGASTRODUODENOSCOPY TRANSORAL DIAGNOSTIC 12/19/2018 EGD HEMORRHOIDECTOMY INT & XTRNL 2/> COLUMN/JULIENNE 03/06/2010 HERNIA REPAIR HX PAST SURGICAL HISTORY OF Late Hernia repair PAST SURGICAL HISTORY OF 2011 polyp vocal cord STENT PLACEMENT 05/14/2020 [facility] THROAT SURGERY PROCEDURE UNLISTED 12/27/2012 polyp vocal cord TONSILLECTOMY HX TOTAL ABDOMINAL HYSTERECT W/WO RMVL TUBE OVARY 1997 [facility] & LSO - benign indication (endometrial implants) - 1997 VAGINAL HYSTERECTOMY X-RAY LUMBAR SPINE AP & LAT 08/28/2015 [facility]-degenerative changes ALLERGIES Doxycycline Hcl MEDICATIONS pravastatin (PRAVACHOL) 20 mg tablet Take 1 tablet by mouth once daily. sertraline (ZOLOFT) 50 mg tablet Take 1 tablet by mouth once daily. FEROSUL 325 mg (65 mg iron) tablet take 1 tablet by mouth every other day pantoprazole DR (PROTONIX) 40 mg tablet Take 1 tablet by mouth two times a day. traZODone (DESYREL) 150 mg tablet Take 1 tablet by mouth daily at bedtime. HYDROcodone-acetaminophen (NORCO) 5-325 mg per tablet Take 1 tablet by mouth two times a day. cyanocobalamin (VITAMIN B-12) 1,000 mcg tab Take 1 tablet by mouth once daily. ascorbic acid, vitamin C, (VITAMIN C) 500 mg tablet Take 1 tablet by mouth once daily. apixaban (ELIQUIS) 5 mg tab(s) Take 5 mg by mouth twice daily. gabapentin (NEURONTIN) 100 mg capsule Take 100 mg by mouth twice daily. aspirin, enteric coated (ASPIRIN, ENTERIC COATED) 81 mg EC tablet Take 81 mg by mouth once daily. folic acid/multivit-min/lutein (CENTRUM SILVER ORAL) Take by mouth. cholecalciferol (VITAMIN D3) 5,000 unit tab Take 1 tablet by mouth once daily. metoprolol succinate ER (TOPROL XL) 50 mg 24 hr tablet Take 50 mg by mouth once daily. BIOTIN ORAL Take 1 tablet by mouth once daily. 500 mg tiZANidine (ZANAFLEX) 4 mg tablet Take 1 tablet by mouth every 8 hours as needed (muscle spasms). FAMILY HISTORY Problem Relation Age of Onset Diabetes Mother other (NE) Mother other (NE) Father COPD Sister Emphysema Sister Social History Tobacco Use Smoking status: Every Day Current packs/day: 1.00 Average packs/day: 1 pack/day for 30.0 years (30.0 ttl pk-yrs) Types: Cigarettes Smokeless tobacco: Never Vaping Use Vaping status: Never Used Substance Use Topics Alcohol use: Yes Comment: rare - 1 drink a few times a year Drug use: No PHYSICAL EXAM BP 132/80 Pulse 74 Resp 16 Wt 71.2 kg (157 lb) BMI 27.81 kg/m General Appearance: well appearing, in no acute distress, alert Pysch: mood and affect broad and appropriate Eyes: conjunctiva pink and moist, no icterus, sclera white, non-injected Lungs: Lungs clear to auscultation. No wheezing, rhonchi, rales. Heart: RRR without murmur, gallop, or rubs. No ectopy Health maintenance reviewed with patient: Hepatitis C Screening Never done Lung Cancer Screening Never done Shingrix Vaccine(1 of 2) Never done Advance Directive Discussion due on 10/11/2023 Influenza Vaccine(1) due on 06/11/2024 Mammogram Screening due on 08/20/2024 Covid-19 Vaccine(2023- season) due on 08/16/2025 LDL Cholesterol due on 12/28/2024 Annual PCP Team Chronic Disease Visit due on 08/16/2025 Colorectal Cancer Screening due on 09/11/2025 Diabetes Screening due on 08/16/2027 Lipid Screening due on 12/28/2028 DTaP,Tdap,Td Vaccine(2 - Td or Tdap) due on 07/04/2029 RSV Vaccine(1 - 1-dose 75+ series) due on 2030 Bone Density Screening Completed Pneumococcal Vaccine: 65+ Completed DATA REVIEWED: No new labs ASSESSMENT/PLAN: 1. Medicare annual wellness visit, subsequent - ICD9: V70.0, ICD10: Z00.00 (primary diagnosis) - Counseled on healthy diet and regular exercise - Discussed need and benefit for weight loss. BMI 27.81 kg/(m^2) - Lung cancer screening recommended - Smoking cessation encouraged; discussed risks to health and quitting strategies. Patient is not ready to quit - Counseled patient on limiting alcohol intake to 1 drink per day - Patient counseled on and acknowledged vaccine benefits/risks/side effects; VIS provided: Influenza and Shingrix - Follow up for annual exam in one year 2. Moderate episode of recurrent major depressive disorder (HCC) - ICD9: 296.32, ICD10: F33.1 Controlled with current treatment - SERTRALINE 50 MG TABLET - Reviewed concept of neurochemical imbalance wth depression/anxiety, treatment options and benefits of counseling in combination with medication. Also reviewed benefits of sleep hygeine, diet and exercise - Follow-up in 6 months or sooner as needed - Instructed patient to contact office or [id number] after-hours promptly should condition worsen or any new symptoms appear. - Counseling Center [facility] and after hours crisis line 3. Anxiety - ICD9: 300.00, ICD10: F41.9 As above - SERTRALINE 50 MG TABLET 4. Insomnia, unspecified type - ICD9: 780.52, ICD10: G47.00 See #2 5. 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 - ICD9: 414.01, ICD10: I25.10 Stable at this time Continue with recommendations and medications as ordered by cardiology - COMPLETE BLOOD COUNT AND DIFFERENTIAL - COMPREHENSIVE METABOLIC PANEL 6. Paroxysmal A-fib (HCC) - ICD9: 427.31, ICD10: I48.0 As above - apical regular in office - COMPLETE BLOOD COUNT AND DIFFERENTIAL - COMPREHENSIVE METABOLIC PANEL 7. Prediabetes - ICD9: 790.29, ICD10: R73.03 Controlled well with diet at this time - HEMOGLOBIN A1C (POC) - COMPLETE BLOOD COUNT AND DIFFERENTIAL - COMPREHENSIVE METABOLIC PANEL 8. Mixed hyperlipidemia - ICD9: 272.2, ICD10: E78.2 - Control undetermined, due for labs - Continue current medications - Counseled on healthy diet and regular exercise - Discussed need for and benefit of weight loss. BMI 27.81 kg/(m^2) - PRAVASTATIN 20 MG TABLET - COMPREHENSIVE METABOLIC PANEL - LIPID PANEL BASIC 9. Encounter for screening for lung cancer - ICD9: V76.0, ICD10: Z12.2 - CONSULT LUNG CANCER SCREENING CLINIC 10. Tobacco abuse - ICD9: 305.1, ICD10: Z72.0 - Cessation encouraged. - Physiologic and physical aspects of tobacco addiction as well as strategies for quitting were discussed. - Counseling was given focusing on the harmful effects of this addiction especially given the patient's medical condition(s) which will be worsened because of the chemicals in tobacco. 11. Encounter for immunization - ICD9: V03.89, ICD10: Z23 - SHINGRIX PRINTED PHARMACY INSTRUCTIONS 12. Need for influenza vaccination - ICD9: V04.81, ICD10: Z23 - INFLUENZA VACCINE, PRSV FREE, AGE 65+ YR, HIGH DOSE, TRIVALENT (FLUZONE HIGH-DOSE) Prescription instructions reviewed with patient as applicable. Potential red flag symptoms discussed with the patient. Reviewed appropriate action plan to take if red flag symptoms occur. Patient agreeable to treatment plan. Kate Cervantes APRN.DEBO documented in this encounter [facility] 05-31-2024 History of Present illness Narrative POPULATION HEALTH NAVIGATION OUTREACH Action/FYI LVM NO MYCHART ANNUAL MEDICARE WELLNESS MAMMOGRAMS HCC CLOSURE Reason for Outreach Care Gap/HCC or Scheduling Wellness Visits Care Gaps due: Medicare Annual Wellness Visit Breast Cancer Screening Patient Contacted: Unable or unnecessary to reach patient: Left message Navigation Signature: Jonna Chester MA May 31, 2024 1:12 PM documented in this encounter [facility] 02-03-2024 Telephone encounter Note Patient has been identified by name and date of : Yes Patient phones for refill(s): Requested Prescriptions Pending Prescriptions Disp Refills FEROSUL 325 mg (65 mg iron) tablet [Pharmacy Med Name: FEROSUL 325 MG TABLET] 45 tablet 1 Sig: take 1 tablet by mouth every other day Date of last office visit in primary care: 12/29/2023 Date of next office visit in primary care: 03/30/2024 Please advise. Thank you. Stefani Maynard LPN. [facility] 02-03-2024 Miscellaneous Notes Patient has been identified by name and date of : Yes Patient phones for refill(s): Requested Prescriptions Pending Prescriptions Disp Refills FEROSUL 325 mg (65 mg iron) tablet [Pharmacy Med Name: FEROSUL 325 MG TABLET] 45 tablet 1 Sig: take 1 tablet by mouth every other day Date of last office visit in primary care: 12/29/2023 Date of next office visit in primary care: 03/30/2024 Please advise. Thank you. Stefani Maynard LPN. documented in this encounter [facility] 12-29-2023 History of Present illness Narrative CC: Patient presents with: Follow Up: 4 months HPI Henny Damian is a 68 year old female who presents today for 4-month follow-up. Last visit was on 08/30/2023. Labs obtained at prior visit as follows: Latest Ref Rng 08/30/2023 WBC 3.70 - 11.00 k/uL 7.36 RBC 3.90 - 5.20 m/uL 5.18 Hemoglobin 11.5 - 15.5 g/dL 14.2 Hematocrit 36.0 - 46.0 % 45.3 MCV 80.0 - 100.0 fL 87.5 MCH 26.0 - 34.0 pg 27.4 MCHC 30.5 - 36.0 g/dL 31.3 RDW-CV 11.5 - 15.0 % 15.6 (H) Platelet Count 150 - 400 k/uL 298 MPV 9.0 - 12.7 fL 9.2 Neut% % 60.9 Abs Neut (ANC) 1.45 - 7.50 k/uL 4.48 Lymph% % 24.7 Abs Lymph 1.00 - 4.00 k/uL 1.82 [place]% % 11.4 Abs [place] <0.87 k/uL 0.84 Eosin% % 1.6 Abs Eosin <0.46 k/uL 0.12 Baso% % 1.1 Abs Baso <0.11 k/uL 0.08 Immature Gran % % 0.3 IMMATURE GRANS (ABS) <0.10 k/uL <0.03 NRBC /100 WBC 0.0 Absolute nRBC <0.01 k/uL <0.01 DTYPE Auto Iron 41 - 186 ug/dL 53 TIBC 232 - 386 ug/dL 422 (H) Transferrin Saturation 15.0 - 57.0 % 12.6 (L) Ferritin 14.7 - 205.1 ng/mL 13.4 (L) Legend: (H) High (L) Low Iron deficiency anemia: Since last visit, has started taking iron every other day instead of every 3 days d//t concern for constipation. GERD: States that she has had worsening symptoms over the past couple months (acidbrash, intermittent heartburn, excessive gas) so she has been taking tums more frequently. She is on protonix but has been on this dosage for sometime. I wasn't sure if we need to bump it up. Had EGD and colonoscopy in 06/02, for which pt reports she had ulcers that were cauterized. Paroxysmal A Fib, CAD status post MAHAMED placement in 2019- sees Dr. Mcneill's group. Hyperlipidemia. Ms. Damian reports doing well on current therapy of pravastatin (Pravachol). Denies side effects of muscle weakness or achiness. Her most recent lipid panels are: Cholesterol, Total (mg/dL) Date Value 08/26/2023 210 07/02/2022 172 03/04/2021 176 08/09/2020 185 HDL Cholesterol (mg/dL) Date Value 08/26/2023 52 07/02/2022 41 03/04/2021 50 08/09/2020 53 LDL Cholesterol (mg/dL) Date Value 08/26/2023 105 07/02/2022 74 03/04/2021 94 08/09/2020 107 Triglyceride (mg/dL) Date Value 08/26/2023 267 07/02/2022 283 03/04/2021 161 08/09/2020 125 Anxiety: Stable on sertraline. PreDM: Stable, A1c 6.1. Chronic Pain in LS spine/sciatic nerve (R>L) - sees Dr. Arreola Qmonthly for Shelby rx. Takes Shelby 5s BID. Smokes ~14 cigarettes/day, working on cutting down as she used to have a whole PPD. REVIEW OF SYSTEMS See HPI PAST MEDICAL HISTORY Diagnosis Date Arthritis Atrial fibrillation (HCC) had stent placement Coronary artery disease COVID-19 05/2022 Depression GERD (gastroesophageal reflux disease) Hayfever Hemorrhoid History of transfusion PAST SURGICAL HISTORY Procedure Laterality Date ABDOMINAL SURGERY HX , CLASSIC, ANTE/POST CA 1994 COLONOSCOPY 09/11/2022 repeat in 10 years COLONOSCOPY FLX DX W/COLLJ SPEC WHEN PFRMD 12/19/2018 Colonoscopy COLSC FLX W/RMVL OF TUMOR POLYP LESION SNARE TQ 06/24/2009 polyp at 25cm EGD 09/11/2022 ESOPHAGOGASTRODUODENOSCOPY TRANSORAL DIAGNOSTIC 12/19/2018 EGD HEMORRHOIDECTOMY INT & XTRNL 2/> COLUMN/JULIENNE 03/06/2010 HERNIA REPAIR HX PAST SURGICAL HISTORY OF Late Hernia repair PAST SURGICAL HISTORY OF 2011 polyp vocal cord STENT PLACEMENT 05/14/2020 [facility] THROAT SURGERY PROCEDURE UNLISTED 12/27/2012 polyp vocal cord TONSILLECTOMY HX TOTAL ABDOMINAL HYSTERECT W/WO RMVL TUBE OVARY 1997 [facility] & LSO - benign indication (endometrial implants) - 1997 VAGINAL HYSTERECTOMY X-RAY LUMBAR SPINE AP & LAT 08/28/2015 [facility]-degenerative changes ALLERGIES Doxycycline Hcl MEDICATIONS traZODone (DESYREL) 150 mg tablet Take 1 tablet by mouth daily at bedtime. pravastatin (PRAVACHOL) 20 mg tablet Take 1 tablet by mouth once daily. sertraline (ZOLOFT) 50 mg tablet Take 1 tablet by mouth once daily. HYDROcodone-acetaminophen (NORCO) 5-325 mg per tablet Take 1 tablet by mouth two times a day. pantoprazole DR (PROTONIX) 40 mg tablet take 1 tablet by mouth once daily ferrous sulfate (FEROSUL) 325 mg (65 mg iron) tablet Take 1 tablet by mouth every other day. cyanocobalamin (VITAMIN B-12) 1,000 mcg tab Take 1 tablet by mouth once daily. apixaban (ELIQUIS) 5 mg tab(s) Take 5 mg by mouth twice daily. gabapentin (NEURONTIN) 100 mg capsule Take 100 mg by mouth twice daily. aspirin, enteric coated (ASPIRIN, ENTERIC COATED) 81 mg EC tablet Take 81 mg by mouth once daily. folic acid/multivit-min/lutein (CENTRUM SILVER ORAL) Take by mouth. cholecalciferol (VITAMIN D3) 5,000 unit tab Take 1 tablet by mouth once daily. metoprolol succinate ER (TOPROL XL) 50 mg 24 hr tablet Take 50 mg by mouth once daily. BIOTIN ORAL Take 1 tablet by mouth once daily. 500 mg tiZANidine (ZANAFLEX) 4 mg tablet Take 1 tablet by mouth every 8 hours as needed (muscle spasms). ascorbic acid, vitamin C, (VITAMIN C) 500 mg tablet Take 1 tablet by mouth once daily. FAMILY HISTORY Problem Relation Age of Onset Diabetes Mother other (NE) Mother other (NE) Father COPD Sister Emphysema Sister Social History Tobacco Use Smoking status: Every Day Packs/day: 1.00 Years: 30.00 Additional pack years: 0.00 Total pack years: 30.00 Types: Cigarettes Smokeless tobacco: Never Vaping Use Vaping Use: Never used Substance Use Topics Alcohol use: Yes Comment: rare Drug use: No PHYSICAL EXAM BP 128/74 Pulse 75 Resp 16 Wt 77.4 kg (170 lb 9.6 oz) SpO2 95% BMI 30.22 kg/m General Appearance: well appearing, in no acute distress, alert Pysch: mood and affect broad and appropriate Skin: Skin color, texture, turgor normal for age; Head: normocephalic, atraumatic Lymph nodes: No cervical lymphadenopathy Lungs: Lungs clear to auscultation. No wheezing, rhonchi, rales. Heart: RRR without murmur, gallop, or rubs. No ectopy Abdomen: Normal abdominal exam Extremities: No gross deformities, significant edema, skin discoloration, clubbing or cyanosis. Neurological: Gait normal. No focal neurological deficits. Sensation grossly intact. ASSESSMENT/PLAN: 1. Iron deficiency - ICD9: 280.9, ICD10: E61.1 (primary diagnosis) CCM on oral iron as indicated. Will check labs per below - CBC + DIFF - COMP METABOLIC PANEL - AMYLASE BLD - FERRITIN BLD 2. Gastroesophageal reflux disease without esophagitis - ICD9: 530.81, ICD10: K21.9 Advise d/c of aspirin d/t hx of ulcers. Can increse protonix to BID if needed given her hx - CBC + DIFF - COMP METABOLIC PANEL - AMYLASE BLD - PANTOPRAZOLE 40 MG TABLET,DELAYED RELEASE 3. 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 - ICD9: 414.01, ICD10: I25.[address] Mcneill's ofice - CBC + DIFF - COMP METABOLIC PANEL 4. Mixed hyperlipidemia - ICD9: 272.2, ICD10: E78.2 Overdue for labs-- ordered per below CCM per Dr. Mcneill - COMP METABOLIC PANEL - LIPID PANEL BASIC 5. Anxiety with depression - ICD9: 300.4, ICD10: F41.8 Stable on sertraline - COMP METABOLIC PANEL F/u 3 months GERD, labs Prescription instructions reviewed with patient as applicable. Potential red flag symptoms discussed with the patient. Reviewed appropriate action plan to take if red flag symptoms occur. Patient agreeable to treatment plan. Katey Dudley PA-C documented in this encounter [facility] 12-17-2023 History of Present illness Narrative POPULATION HEALTH NAVIGATION OUTREACH Action/I Last Wellness exam 06/26/2022 No active MyChart Reason for Outreach Care Gap/HCC or Scheduling Wellness Visits Care Gaps due: Medicare Annual Wellness Visit Patient Contacted: Unable or unnecessary to reach patient: Left message Navigation Signature: Valeria Cleveland MA December 17, 2023 2:15 PM documented in this encounter [facility] 08-30-2023 History of Present illness Narrative CC: Patient presents with: Follow Up: refills needed, question about sleeping pill alondra to cutting them in half HPI Henny Damian is a 67 year old female who presents today for medication refills/3 month routine f/u and to f/u on labs. Hyperlipidemia. Ms. Damian reports doing well on current therapy of pravastatin (Pravachol). Denies side effects of muscle weakness or achiness. Her most recent lipid panels are: Cholesterol, Total (mg/dL) Date Value 08/26/2023 210 07/02/2022 172 03/04/2021 176 08/09/2020 185 HDL Cholesterol (mg/dL) Date Value 08/26/2023 52 07/02/2022 41 03/04/2021 50 08/09/2020 53 LDL Cholesterol (mg/dL) Date Value 08/26/2023 105 07/02/2022 74 03/04/2021 94 08/09/2020 107 Triglyceride (mg/dL) Date Value 08/26/2023 267 07/02/2022 283 03/04/2021 161 08/09/2020 125 Anxiety: Stable on sertraline. PreDM: Stable, A1c 6.1. Paroxysmal A Fib, CAD status post MAHAMED placement in 2019- sees Dr. Mcneill's group Anemia: On oral iron every 3 days Chronic Pain in LS spine/sciatic nerve (R>L) - sees Dr. Arreola Qmonthly for Shelby rx. Takes Shelby 5s BID. Smokes ~14 cigarettes/day, working on cutting down as she used to have a whole PPD. REVIEW OF SYSTEMS See HPI All other systems negative. PAST MEDICAL HISTORY Diagnosis Date Arthritis Atrial fibrillation (HCC) had stent placement Cancer (HCC) Coronary artery disease COVID-19 05/2022 Depression GERD (gastroesophageal reflux disease) Hayfever Hemorrhoid History of transfusion PAST SURGICAL HISTORY Procedure Laterality Date ABDOMINAL SURGERY HX , CLASSIC, ANTE/POST CA 1994 COLONOSCOPY 09/11/2022 repeat in 10 years COLONOSCOPY FLX DX W/COLLJ SPEC WHEN PFRMD 12/19/2018 Colonoscopy COLSC FLX W/RMVL OF TUMOR POLYP LESION SNARE TQ 06/24/2009 polyp at 25cm EGD 09/11/2022 ESOPHAGOGASTRODUODENOSCOPY TRANSORAL DIAGNOSTIC 12/19/2018 EGD HEMORRHOIDECTOMY INT & XTRNL 2/> COLUMN/JULIENNE 03/06/2010 HERNIA REPAIR HX PAST SURGICAL HISTORY OF Late Hernia repair PAST SURGICAL HISTORY OF 2011 polyp vocal cord STENT PLACEMENT 05/14/2020 [facility] THROAT SURGERY PROCEDURE UNLISTED 12/27/2012 polyp vocal cord TONSILLECTOMY HX TOTAL ABDOMINAL HYSTERECT W/WO RMVL TUBE OVARY 1997 [facility] & LSO - benign indication (endometrial implants) - 1997 VAGINAL HYSTERECTOMY X-RAY LUMBAR SPINE AP & LAT 08/28/2015 [facility]-degenerative changes ALLERGIES Doxycycline Hcl MEDICATIONS pantoprazole DR (PROTONIX) 40 mg tablet take 1 tablet by mouth once daily ferrous sulfate (FEROSUL) 325 mg (65 mg iron) tablet Take 1 tablet by mouth every other day. traZODone (DESYREL) 100 mg tablet Take 1.5 tablets by mouth daily at bedtime. cyanocobalamin (VITAMIN B-12) 1,000 mcg tab Take 1 tablet by mouth once daily. ascorbic acid, vitamin C, (VITAMIN C) 500 mg tablet Take 1 tablet by mouth once daily. sertraline (ZOLOFT) 50 mg tablet Take 1 tablet by mouth once daily. pravastatin (PRAVACHOL) 20 mg tablet Take 1 tablet by mouth once daily. HYDROcodone-acetaminophen (NORCO) 5-325 mg per tablet Take 0.5 tablets by mouth twice daily. apixaban (ELIQUIS) 5 mg tab(s) Take 5 mg by mouth twice daily. gabapentin (NEURONTIN) 100 mg capsule Take 100 mg by mouth twice daily. aspirin, enteric coated (ASPIRIN, ENTERIC COATED) 81 mg EC tablet Take 81 mg by mouth once daily. folic acid/multivit-min/lutein (CENTRUM SILVER ORAL) Take by mouth. cholecalciferol (VITAMIN D3) 5,000 unit tab Take 1 tablet by mouth once daily. metoprolol succinate ER (TOPROL XL) 50 mg 24 hr tablet Take 50 mg by mouth once daily. BIOTIN ORAL Take 1 tablet by mouth once daily. 500 mg tiZANidine (ZANAFLEX) 4 mg tablet Take 1 tablet by mouth every 8 hours as needed (muscle spasms). FAMILY HISTORY Problem Relation Age of Onset Diabetes Mother other (NE) Mother other (NE) Father COPD Sister Emphysema Sister Social History Tobacco Use Smoking status: Every Day Packs/day: 1.00 Years: 30.00 Additional pack years: 0.00 Total pack years: 30.00 Types: Cigarettes Smokeless tobacco: Never Vaping Use Vaping Use: Never used Substance Use Topics Alcohol use: Yes Comment: rare Drug use: No PHYSICAL EXAM BP 130/68 (BP Site: Left Arm, BP Position: Sitting, BP Cuff Size: Large Adult) Pulse 74 Temp 36.2 C (97.1 F) Resp 12 Ht 160 cm (5' 3) Wt 74.8 kg (165 lb) SpO2 95% BMI 29.23 kg/m General Appearance: well appearing, in no acute distress, alert Psych: mood and affect broad and appropriate Skin: Skin color, texture, turgor normal for age Lungs: Lungs clear to auscultation. No wheezing, rhonchi, rales. Heart: RRR without murmur, gallop, or rubs. Extremities: No gross deformities, significant edema, skin discoloration, clubbing or cyanosis. Neurological: Gait normal. No focal neurological deficits. Sensation grossly intact. ASSESSMENT/PLAN: 1. Mixed hyperlipidemia - ICD9: 272.2, ICD10: E78.2 (primary diagnosis) - Worsening control - Continue current medications - Counseled on healthy diet and regular exercise - Discussed need for and benefit of weight loss. BMI 29.23 kg/(m^2) - PRAVASTATIN 20 MG TABLET 2. Anemia, unspecified type - ICD9: 285.9, ICD10: D64.9 We will follow-up on the status of this with repeat CBC and iron panel. Continue on oral iron every 3 days, if tolerated-we will adjust as needed pending results. - CBC + DIFF - FERRITIN BLD - IRON + TIBC 3. Insomnia, unspecified type - ICD9: 780.52, ICD10: G47.00 Patient reports issues with splitting tablets, so we will fill as 150 mg tablets in the future - TRAZODONE 150 MG TABLET 4. Spondylolisthesis, unspecified spinal region - ICD9: 756.12, ICD10: M43.10 Continue current regimen per pain management - HYDROCODONE 5 MG-ACETAMINOPHEN 325 MG TABLET 5. Moderate episode of recurrent major depressive disorder (HCC) - ICD9: 296.32, ICD10: F33.1 Mood stable on current regimen; Refills provided per patient request. - SERTRALINE 50 MG TABLET 6. Anxiety - ICD9: 300.00, ICD10: F41.9 See above - SERTRALINE 50 MG TABLET 7. Encounter for immunization - ICD9: V03.89, ICD10: Z23 - INFLUENZA VACCINE, PRSV FREE, AGE 65+ YR, HIGH DOSE, QUADRIVALENT (FLUZONE HIGH-DOSE) 8. Prediabetes - ICD9: 790.29, ICD10: R73.03 Slightly increased at 6.1 (up from 5.8). Discussed prediabetes diagnosis, and the fact that this is a totally irreversible process and does not necessarily turn into diabetes with implementation of appropriate lifestyle changes. Encouraged working on healthy, balanced diet and minimizing excess carbohydrates, such as pizzas, pastas, breads, sweets/desserts, juices, sodas, sugary coffee beverages, etc. Encouraged regular exercise for at least -5 days/week, at least 20 minutes a day. We will continue to monitor sugars over time. Follow-up 4 months routine issues Prescription instructions reviewed with patient as applicable. Potential red flag symptoms discussed with the patient. Reviewed appropriate action plan to take if red flag symptoms occur. Patient agreeable to treatment plan. Katey Dudley PA-C documented in this encounter [facility] 08-23-2023 Miscellaneous Notes August 24, 2023 PID: [id number] Henny Damian [address] [place] [address] Dear Maria Isabel Damian, We are pleased to inform you that the results of your recent breast imaging exam on 08/20/2023 are normal. Early detection of cancer is very important. We also understand recommendations regarding breast cancer screening are controversial. Please discuss with your primary care provider which strategy is best for you and whether a mammogram is right for you. Your imaging studies and report will be kept on file at [facility] as part of your permanent medical record and are available for your continuing care. Thank you for allowing us to help in meeting your health care needs. Sincerely, Dr. Landrum Interpreting Radiologist [facility] (Normal over 40) documented in this encounter [facility] 08-20-2023 History of Present illness Narrative Radiology Service Progress Note PATIENT NAME: Henny Damian DATE OF SERVICE: August 20, 2023 TIME: 2:47 PM PATIENT IDENTITY VERIFICATION COMPLETED USING TWO (2) IDENTIFIERS: Name and Date of confirmed by patient verbally. FALL SCREENING: Has the patient had 2 falls in the last year or 1 fall with injury or currently using an Ambulatory Assistive Device (Walker, Cane, Wheelchair, Crutches, etc.)? No PATIENT GENDER DATA: Female. status: : No status: NO. PATIENT RELEVANT IMPLANT DATA REVIEWED: Not Applicable RADIOLOGY DEPARTMENT: Mammography PERIPHERAL IV DATA: Not applicable SIGNED BY: Levi Ngo Eboni August 20, 2023 2:47 PM documented in this encounter [facility] 08-16-2023 Miscellaneous Notes Patient has been identified by name and date of : No Patient phones for refill(s): Requested Prescriptions Pending Prescriptions Disp Refills pantoprazole DR (PROTONIX) 40 mg tablet [Pharmacy Med Name: PANTOPRAZOLE SOD DR 40 MG TAB] 90 tablet 3 Sig: take 1 tablet by mouth once daily Date of last office visit in primary care: 05/25/2023 Date of next office visit in primary care: 08/30/2023 Last 2 Encounter Wt Readings: Date: Wt: 05/25/2023 74.8 kg (165 lb) 05/12/2023 74.4 kg (164 lb) Previous labs/tests for medication: Not applicable Please advise. Thank you. Brianna Sarabia. documented in this encounter [facility] 08-02-2023 Miscellaneous Notes Patient has been identified by name and date of : No Patient phones for refill(s): Requested Prescriptions Pending Prescriptions Disp Refills FEROSUL 325 mg (65 mg iron) tablet [Pharmacy Med Name: FEROSUL 325 MG TABLET] 30 tablet 5 Sig: take 1 tablet by mouth every morning with breakfast Date of last office visit in primary care: 05/25/2023 Date of next office visit in primary care: 08/30/2023 Last 2 Encounter Wt Readings: Date: Wt: 05/25/2023 74.8 kg (165 lb) 05/12/2023 74.4 kg (164 lb) Previous labs/tests for medication: Not applicable Please advise. Thank you. Brianna Sarabia. documented in this encounter [facility] 07-23-2023 Miscellaneous Notes Patient has been identified by name and date of : No Patient phones for refill(s): Requested Prescriptions Pending Prescriptions Disp Refills traZODone (DESYREL) 100 mg tablet 135 tablet 3 Sig: Take 1.5 tablets by mouth daily at bedtime. Date of last office visit in primary care: 05/25/2023 Date of next office visit in primary care: 08/30/2023 Last 2 Encounter Wt Readings: Date: Wt: 05/25/2023 74.8 kg (165 lb) 05/12/2023 74.4 kg (164 lb) Previous labs/tests for medication: Not applicable Please advise. Thank you. Brianna Sarabia. Patient has been identified by name and date of : Yes Requested Prescriptions Pending Prescriptions Disp Refills traZODone (DESYREL) 100 mg tablet 135 tablet 3 Sig: Take 1.5 tablets by mouth daily at bedtime. RX INSTRUCTIONS: Patient needs today, please. Patient aware RX will be sent to pharmacy. No need to notify patient. Senia Mcdowell Pss documented in this encounter [facility] 05-25-2023 Nurse Note room air O2 sat 96% and walking O2 sat at 92% documented in this encounter [facility] 05-25-2023 History of Present illness Narrative CC: Patient presents with: Follow Up: needs letter to d/c O2 HPI Henny Damian is a 67 year old female who presents today requesting D/C of O2. Per telephone encounter 05/14/23: Patient calling asking for a discontinue oxygen order to be faxed to [employer], so she can have them knot picker cloth the equipment. Patient said she was discharged from [facility] end of March with oxygen to use when she was short of breath, she said she had blood transfusions, patient does not know why she was given the oxygen to use. Patient said she has not used the oxygen only short time beginning of April. She has called [facility] trying to get order from there, they are telling her to have her PCP send order. Pending order Upon further investigation, discharge summary from hospitalization 03/31- 04/05: She did develop some slight hypoxia and she has been 90% on room air at rest at times however she is needing oxygen when she is sleeping and and she needs 2-4 L with ambulation. This is likely secondary to atelectasis, as well as volume from blood transfusions, as she has not been very ambulatory while here in the hospital. States that she feels really good at this point. She had been using her pulse oximeter routinely ~1.5 weeks ago. Notes that when she checks it it's been mid 90s. HR has been about 62-66. Just had bloodwork done a few days ago an was told everything was stable. Takes oral iron every 3 days as she cannot take it daily d/t constipation- ferrous sulfate 325 mg. Feels slightly winded with exertion, but nothing significant. She reports that she is still smoking- has been smoking outside Down to 12-14 cigarettes/day (down from 1 PPD or a little over). REVIEW OF SYSTEMS See HPI All other systems negative. PAST MEDICAL HISTORY Diagnosis Date Arthritis Atrial fibrillation (HCC) had stent placement Cancer (HCC) Coronary artery disease COVID-19 05/2022 Depression GERD (gastroesophageal reflux disease) Hayfever Hemorrhoid History of transfusion PAST SURGICAL HISTORY Procedure Laterality Date ABDOMINAL SURGERY HX , CLASSIC, ANTE/POST CA 1994 COLONOSCOPY 09/11/2022 repeat in 10 years COLONOSCOPY FLX DX W/COLLJ SPEC WHEN PFRMD 12/19/2018 Colonoscopy COLSC FLX W/RMVL OF TUMOR POLYP LESION SNARE TQ 06/24/2009 polyp at 25cm EGD 09/11/2022 ESOPHAGOGASTRODUODENOSCOPY TRANSORAL DIAGNOSTIC 12/19/2018 EGD HEMORRHOIDECTOMY INT & XTRNL 2/> COLUMN/JULIENNE 03/06/2010 HERNIA REPAIR HX PAST SURGICAL HISTORY OF Late Hernia repair PAST SURGICAL HISTORY OF 2011 polyp vocal cord STENT PLACEMENT 05/14/2020 [facility] THROAT SURGERY PROCEDURE UNLISTED 12/27/2012 polyp vocal cord TONSILLECTOMY HX TOTAL ABDOMINAL HYSTERECT W/WO RMVL TUBE OVARY 1997 [facility] & LSO - benign indication (endometrial implants) - 1997 VAGINAL HYSTERECTOMY X-RAY LUMBAR SPINE AP & LAT 08/28/2015 [facility]-degenerative changes ALLERGIES Doxycycline Hcl MEDICATIONS sertraline (ZOLOFT) 50 mg tablet Take 1 tablet by mouth once daily. pravastatin (PRAVACHOL) 20 mg tablet Take 1 tablet by mouth once daily. HYDROcodone-acetaminophen (NORCO) 5-325 mg per tablet Take 0.5 tablets by mouth twice daily. ferrous sulfate 325 mg (65 mg iron) tablet Take 1 tablet by mouth daily with breakfast. (Patient taking differently: Take 325 mg by mouth every other day.) traZODone (DESYREL) 100 mg tablet Take 1.5 tablets by mouth daily at bedtime. apixaban (ELIQUIS) 5 mg tab(s) Take 5 mg by mouth twice daily. gabapentin (NEURONTIN) 100 mg capsule Take 100 mg by mouth twice daily. pantoprazole DR (PROTONIX) 40 mg tablet Take 1 tablet by mouth once daily. aspirin, enteric coated (ASPIRIN, ENTERIC COATED) 81 mg EC tablet Take 81 mg by mouth once daily. folic acid/multivit-min/lutein (CENTRUM SILVER ORAL) Take by mouth. cholecalciferol (VITAMIN D3) 5,000 unit tab Take 1 tablet by mouth once daily. metoprolol succinate ER (TOPROL XL) 50 mg 24 hr tablet Take 50 mg by mouth once daily. BIOTIN ORAL Take 1 tablet by mouth once daily. 500 mg tiZANidine (ZANAFLEX) 4 mg tablet Take 1 tablet by mouth every 8 hours as needed (muscle spasms). FAMILY HISTORY Problem Relation Age of Onset Diabetes Mother other (NE) Mother other (NE) Father COPD Sister Emphysema Sister Social History Tobacco Use Smoking status: Every Day Packs/day: 1.00 Years: 30.00 Additional pack years: 0.00 Total pack years: 30.00 Types: Cigarettes Smokeless tobacco: Never Vaping Use Vaping Use: Never used Substance Use Topics Alcohol use: Yes Comment: rare Drug use: No PHYSICAL EXAM BP 136/70 (BP Site: Left Arm, BP Position: Sitting, BP Cuff Size: Large Adult) Pulse 61 Temp 36.3 C (97.3 F) Resp 16 Ht 160 cm (5' 3) Wt 74.8 kg (165 lb) SpO2 96% BMI 29.23 kg/m General Appearance: well appearing, in no acute distress, alert Pysch: mood and affect broad and appropriate Skin: Skin color, texture, turgor normal for age; Head: normocephalic, atraumatic Lymph nodes: No cervical lymphadenopathy Lungs: Lungs clear to auscultation. No wheezing, rhonchi, rales. Heart: RRR without murmur, gallop, or rubs. No ectopy Abdomen: Normal abdominal exam Extremities: No gross deformities, significant edema, skin discoloration, clubbing or cyanosis. Neurological: Gait normal. No focal neurological deficits. Sensation grossly intact. ASSESSMENT/PLAN: 1. Hypoxia - ICD9: 799.02, ICD10: R09.02 (primary diagnosis) Likely secondary to severe blood loss w/ GI bleeds during hospitalization. No longer occurring at this time Pulse ox at rest today 96%, pulse ox w/ ambulation 92% --letter generated and faxed over 2 days ago requesting DC of oxygen. 2. Anemia, unspecified type - ICD9: 285.9, ICD10: D64.9 Last labs 05/11 Hgb stable at 12.4, still on oral iron every 3 days as tolerated - CYANOCOBALAMIN (VIT B-12) 1,000 MCG TABLET - ASCORBIC ACID (VITAMIN C) 500 MG TABLET Prescription instructions reviewed with patient as applicable. Potential red flag symptoms discussed with the patient. Reviewed appropriate action plan to take if red flag symptoms occur. Patient agreeable to treatment plan. Katey Dudley PA-C documented in this encounter [facility] 05-25-2023 Miscellaneous Notes Patient has been identified by name and date of : No Patient phones for refill(s): Requested Prescriptions Pending Prescriptions Disp Refills pantoprazole DR (PROTONIX) 40 mg tablet [Pharmacy Med Name: PANTOPRAZOLE SOD DR 40 MG TAB] 90 tablet 3 Sig: take 1 tablet by mouth once daily Date of last office visit in primary care: 05/12/23 Last 2 Encounter Wt Readings: Date: Wt: 05/12/2023 74.4 kg (164 lb) 05/11/2023 74.4 kg (164 lb) Previous labs/tests for medication: Not applicable Please advise. Thank you. Brianna Frost LPN documented in this encounter [facility] 05-17-2023 Miscellaneous Notes Pt called and is notified of providers results and instructions. Pt voices understanding. Pt states she was seen for a rash and Enmanuel Ballardek can't see her until July and they are not accepting new patient. Pt was put through to scheduling to see if there was anywhere she could get into sooner in an area she was familiar with. Anisha Mello, RN Please let Henny know that overall labs are stable, the iron levels are low, indicating she is not getting enough iron. It looks like she had issues taking her iron daily because of constipation. If she can tolerate increasing it to daily that would be ideal but if still issues she should discuss iron infusions with her up coming appointment with Katey. documented in this encounter [facility] 05-14-2023 Miscellaneous Notes Patient notified and appointment scheduled. She needs to have a walking pulse ox completed on and was just seen. Is there a way to do this as a nurse visit? Thank you Kate Cervantes APRN.DEBO Patient calling asking for a discontinue oxygen order to be faxed to [facility], so she can have them knot picker cloth the equipment. Patient said she was discharged from [facility] end of March with oxygen to use when she was short of breath, she said she had blood transfusions, patient does not know why she was given the oxygen to use. Patient said she has not used the oxygen only short time beginning of April. She has called [facility] trying to get order from there, they are telling her to have her PCP send order. Pending order Please advise documented in this encounter [facility] 05-12-2023 History of Present illness Narrative SUBJECTIVE Henny Damian is a 67 year old female here today for a check up on her medical problems. Chief Complaint Patient presents with: Recheck: rash denies it being itchy upper thighs and trunk HPI Henny Damian is a 67 year old female established patient of Dr. Horner. She presents today for an EC follow up. She was seen in our EC yesterday by EUFEMIA Church. She had concerns of a rash. Rash to the legs with an onset of about 6 days ago. Maybe slightly improving. It does not itch, it does not cause pain. Rash blanches, lesions are raised and erythematous. CBC done and normal. Referral to dermatology at [facility] placed yesterday. Legs, back. No new medications, no new soaps, lotions, or other contacts. Lesions do not drain. Not really worse but not much better. She does smoke, smokes in the garage. Not a lot of time in the sun. Right breast with yeast dermatitis. Treating with nystatin. Her medications were reviewed today and her list is now up to date. Medications Current Outpatient Medications Medication Sig nystatin (MYCOSTATIN) cream Apply to affected area twice daily for 7 days. sertraline (ZOLOFT) 50 mg tablet Take 1 tablet by mouth once daily. pravastatin (PRAVACHOL) 20 mg tablet Take 1 tablet by mouth once daily. HYDROcodone-acetaminophen (NORCO) 5-325 mg per tablet Take 0.5 tablets by mouth twice daily. ferrous sulfate 325 mg (65 mg iron) tablet Take 1 tablet by mouth daily with breakfast. (Patient taking differently: Take 325 mg by mouth every other day.) traZODone (DESYREL) 100 mg tablet Take 1.5 tablets by mouth daily at bedtime. apixaban (ELIQUIS) 5 mg tab(s) Take 5 mg by mouth twice daily. gabapentin (NEURONTIN) 100 mg capsule Take 100 mg by mouth twice daily. pantoprazole DR (PROTONIX) 40 mg tablet Take 1 tablet by mouth once daily. aspirin, enteric coated (ASPIRIN, ENTERIC COATED) 81 mg EC tablet Take 81 mg by mouth once daily. folic acid/multivit-min/lutein (CENTRUM SILVER ORAL) Take by mouth. cholecalciferol (VITAMIN D3) 5,000 unit tab Take 1 tablet by mouth once daily. metoprolol succinate ER (TOPROL XL) 50 mg 24 hr tablet Take 50 mg by mouth once daily. BIOTIN ORAL Take 1 tablet by mouth once daily. 500 mg tiZANidine (ZANAFLEX) 4 mg tablet Take 1 tablet by mouth every 8 hours as needed (muscle spasms). No current facility-administered medications for this visit. ALLERGIES Allergen Reactions Doxycycline Hcl Other: See Comments insomnia ACTIVE PROBLEM LIST Allergic Rhinitis - 12/08/2010 (B priority) Insomnia, Unspecified - 06/17/2005 (B priority) Paroxysmal A-Fib (Hcc) - 05/09/2023 Coronary Artery Disease Involving [place] Coronary Artery of [place] Heart Without Angina Pectoris - 06/20/2021 Hair Loss - 08/16/2019 Bright Red Blood Per Rectum - 08/10/2016 Restless Legs Syndrome (Rls) - 12/27/2015 Benign Neoplasm of Skin of Face - 08/13/2015 Anxiety - 07/26/2015 Comment: Complains of anxiety, something like anxiety attacks The triggers are finances. 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 Cardiovascular: Negative. Skin: Positive for rash. OBJECTIVE BP 110/64 Pulse 81 Wt 164 lb (74.4kg) SpO2 96% Physical Exam Vitals and nursing note reviewed. Constitutional: General: She is awake. She is not in acute distress. Appearance: Normal appearance. She is well-developed and well-groomed. She is not ill-appearing, toxic-appearing or diaphoretic. HENT: Head: Normocephalic. Right Ear: External ear normal. Left Ear: External ear normal. Nose: Nose normal. Eyes: General: Vision grossly intact. Conjunctiva/sclera: Conjunctivae normal. Pupils: Pupils are equal, round, and reactive to light. Neck: Vascular: No JVD. Trachea: Trachea normal. Cardiovascular: Rate and Rhythm: Normal rate and regular rhythm. Pulses: Normal pulses. Heart sounds: Normal heart sounds. No murmur heard. Pulmonary: Effort: Pulmonary effort is normal. No accessory muscle usage, prolonged expiration or respiratory distress. Breath sounds: Normal breath sounds. Musculoskeletal: Cervical back: Neck supple. Skin: General: Skin is warm and dry. Capillary Refill: Capillary refill takes less than 2 seconds. Findings: Rash present. Rash is macular. Rash is not crusting, nodular, purpuric, pustular, scaling, urticarial or vesicular. Comments: Very light erythematous diffuse, scattered macular rash, petechial like in nature, CBC with normal platelets, hgb, and hct Neurological: General: No focal deficit present. Mental Status: She is alert and oriented to person, place, and time. Mental status is at baseline. Psychiatric: Attention and Perception: Attention and perception normal. Mood and Affect: Mood and affect normal. Speech: Speech normal. Behavior: Behavior normal. Behavior is cooperative. Thought Content: Thought content normal. Cognition and Memory: Cognition and memory normal. Judgment: Judgment normal. ASSESSMENT/PLAN: 1. Rash and nonspecific skin eruption - ICD9: 782.1, ICD10: R21 (primary diagnosis) The rash does appear petechial like, CBC stable, waiting on iron panel, ferritin, CMP. This could be due to a viral syndrome or a deficiency. No recent B12 level, discussed could start a b complex vitamin. Could have an autoimmune component, she declines labs to check for this. Will monitor, if persistent then she should follow up with her referral to dermatology. 2. Yeast dermatitis - ICD9: 112.3, ICD10: B37.2 Applying nystatin. Portions of this note have been entered by ancillary staff. I have reviewed and when necessary edited, so that they are an adequate record of my encounter with this patient Please note that parts of this document were created using voice recognition software and therefore may contain grammatical errors. Patient verbalizes understanding of instructions from today's visit and in agreement with treatment plan. Questions answered. Agrees to call the office if questions, concerns of issues with acute symptoms not improving or if they worsen. See diagnoses and orders for additional plan(s). Allergies and medications were reviewed, list was updated, and refills given if needed. Past medical, surgical, social, and family history reviewed and updated as appropriate. Encouraged proper diet & exercise as well as compliance with taking medications. Age-appropriate health preventative measures were discussed. Return if symptoms worsen or fail to improve, for Keep next scheduled appointment.. GIOVANNY Pabon documented in this encounter [facility] 05-11-2023 History of Present illness Narrative This note was created using Mimvi. Subjective Henny Damian is a 67 year old female. HPI Presents with a rash on her legs over the past 5 days. She states actually has improved some but she started to get new spots on her chest so came in for evaluation. It is not itchy or painful. She had some peripheral edema after being in the hospital for a GI bleed but that has gone completely away. She states she had to have a blood transfusion during her stay at the end of March. She also has a rash under the right breast the past several days. This is itchy and painful. She is not diabetic. Does not have a history of yeast infection there before. No new soaps or detergents. Denies new medications. She was off of her blood thinner when she had a GI bleed and did start that again a few weeks ago. She had followed up from her hospital stay April 10 with . Review of Systems Constitutional: Negative. HENT: Negative. Eyes: Negative. Respiratory: Negative. Genitourinary: Negative. Musculoskeletal: Negative. Skin: Positive for rash. All other systems reviewed and are negative. PAST MEDICAL HISTORY Diagnosis Date Arthritis Atrial fibrillation (HCC) had stent placement Cancer (HCC) Coronary artery disease COVID-19 05/2022 Depression GERD (gastroesophageal reflux disease) Hayfever Hemorrhoid History of transfusion Current Outpatient Medications Medication Sig Dispense Refill sertraline (ZOLOFT) 50 mg tablet Take 1 tablet by mouth once daily. 90 tablet 3 pravastatin (PRAVACHOL) 20 mg tablet Take 1 tablet by mouth once daily. 90 tablet 3 HYDROcodone-acetaminophen (NORCO) 5-325 mg per tablet Take 0.5 tablets by mouth twice daily. ferrous sulfate 325 mg (65 mg iron) tablet Take 1 tablet by mouth daily with breakfast. (Patient taking differently: Take 325 mg by mouth every other day.) 30 tablet 5 traZODone (DESYREL) 100 mg tablet Take 1.5 tablets by mouth daily at bedtime. 135 tablet 3 apixaban (ELIQUIS) 5 mg tab(s) Take 5 mg by mouth twice daily. gabapentin (NEURONTIN) 100 mg capsule Take 100 mg by mouth twice daily. pantoprazole DR (PROTONIX) 40 mg tablet Take 1 tablet by mouth once daily. 90 tablet 3 aspirin, enteric coated (ASPIRIN, ENTERIC COATED) 81 mg EC tablet Take 81 mg by mouth once daily. folic acid/multivit-min/lutein (CENTRUM SILVER ORAL) Take by mouth. cholecalciferol (VITAMIN D3) 5,000 unit tab Take 1 tablet by mouth once daily. 30 tablet 2 metoprolol succinate ER (TOPROL XL) 50 mg 24 hr tablet Take 50 mg by mouth once daily. BIOTIN ORAL Take 1 tablet by mouth once daily. 500 mg tiZANidine (ZANAFLEX) 4 mg tablet Take 1 tablet by mouth every 8 hours as needed (muscle spasms). nystatin (MYCOSTATIN) cream Apply to affected area twice daily for 7 days. 30 g 0 No current facility-administered medications for this visit. PAST SURGICAL HISTORY Procedure Laterality Date ABDOMINAL SURGERY HX , CLASSIC, ANTE/POST CA 1994 COLONOSCOPY 09/11/2022 repeat in 10 years COLONOSCOPY FLX DX W/COLLJ SPEC WHEN PFRMD 12/19/2018 Colonoscopy COLSC FLX W/RMVL OF TUMOR POLYP LESION SNARE TQ 06/24/2009 polyp at 25cm EGD 09/11/2022 ESOPHAGOGASTRODUODENOSCOPY TRANSORAL DIAGNOSTIC 12/19/2018 EGD HEMORRHOIDECTOMY INT & XTRNL 2/> COLUMN/JULIENNE 03/06/2010 HERNIA REPAIR HX PAST SURGICAL HISTORY OF Late Hernia repair PAST SURGICAL HISTORY OF 2011 polyp vocal cord STENT PLACEMENT 05/14/2020 [facility] THROAT SURGERY PROCEDURE UNLISTED 12/27/2012 polyp vocal cord TONSILLECTOMY HX TOTAL ABDOMINAL HYSTERECT W/WO RMVL TUBE OVARY 1997 [facility] & LSO - benign indication (endometrial implants) - 1997 VAGINAL HYSTERECTOMY X-RAY LUMBAR SPINE AP & LAT 08/28/2015 [facility]-degenerative changes FAMILY HISTORY Problem Relation Age of Onset Diabetes Mother other (NE) Mother other (NE) Father COPD Sister Emphysema Sister Social History Tobacco Use Smoking status: Every Day Packs/day: 1.00 Years: 30.00 Total pack years: 30.00 Types: Cigarettes Smokeless tobacco: Never Vaping Use Vaping Use: Never used Substance Use Topics Alcohol use: Yes Comment: rare Drug use: No Objective BP 122/68 Pulse 88 Temp 36.9 C (98.4 F) Resp 18 Wt 74.4 kg (164 lb) SpO2 94% BMI 29.05 kg/m Physical Exam Vitals reviewed. Constitutional: Appearance: Normal appearance. HENT: Head: Normocephalic and atraumatic. Skin: General: Skin is warm. Findings: Rash present. Comments: Patient has multiple diffuse raised red almost plaque-like lesions to her upper legs bilaterally. These are dry. They do lesvia. Some smaller lesions starting on the right side of the chest, did not appear to be the exact same rash. Patient also has a rash under the right breast, erythematous, shiny, with satellite lesions. Consistent with yeast dermatitis. Patient also has skin colored raised hard bumps on her dorsal bilateral feet, these do not appear acute. Neurological: Mental Status: She is alert. Assessment and Plan ASSESSMENT/PLAN: 1. Yeast infection of the skin - ICD9: 112.3, ICD10: B37.2 (primary diagnosis) We will treat with nystatin cream. 2. Rash - ICD9: 782.1, ICD10: R21 These areas are raised and erythematous however they do levsia when palpated, which makes purpura/petechiae less likely. She denies any history of psoriasis or eczema. They do not itch or bother her. She did actually have lab work done today including a CBC, which will check platelets. Etiology of rash uncertain at this time, we will have her have close follow-up with PCP and also gave her [facility] dermatology to follow up with. Bailey Pennington PA-C documented in this encounter [facility] 05-05-2023 Miscellaneous Notes Patient returned call and went over notes from Haritha Day [employer] with understanding. Patient said with the heat she may wait until early next week to complete the lab work. TC patient, left message for patient to call back and speak with a triage nurse regarding provider instructions. Stacy Mchugh RN Soft stools okay, if becomes very loose/diarrhea then let us know. I do think repeat labs are a good idea, orders placed. She should do them this week or early next week. Patient calls and states that last weekend she was really constipated. Patient was constipated x 4 days. Patient had took Miralax and bisacodyl which helped patient have bowel movement. Since then patient has not had any formed stools. Patients stools have been soft and mushy. Patient does not have any abdominal cramping. Stools have a dark brown color. Patient also had labs done following appointment with Dr. Pagan on 04/10/2023. Patient asking about the results. Does provider think these labs need to be rechecked since she was give 5 units of blood when she was previously in hospital. Please review and advise, Stacy Mchugh RN documented in this encounter [facility] 04-10-2023 History of Present illness Narrative This note was created using Submitnetter. Subjective Henny Damian is a 67 year old female. Patient presents with: Hospital F/U SUBJECTIVE: Henny Damian is a 67 year old year old lady here today for hospiral follow up appointment for review of medical conditions. Had GIB and was told needs labs for follow up on anemia.No signs of bleeding now. Saw Dr. Hill at [facility]. Reviewed labs and records Back on Eliquis and ASA. Legs started swelling when got home. Better by AM but swelling as day goes on. no problems with swelling before. PAST MEDICAL HISTORY Diagnosis Date Arthritis Atrial fibrillation (HCC) had stent placement Cancer (HCC) Coronary artery disease COVID-19 05/2022 Depression GERD (gastroesophageal reflux disease) Hayfever Hemorrhoid History of transfusion Current Outpatient Medications Medication Sig sertraline (ZOLOFT) 50 mg tablet Take 1 tablet by mouth once daily. pravastatin (PRAVACHOL) 20 mg tablet Take 1 tablet by mouth once daily. HYDROcodone-acetaminophen (NORCO) 5-325 mg per tablet Take 0.5 tablets by mouth twice daily. ferrous sulfate 325 mg (65 mg iron) tablet Take 1 tablet by mouth daily with breakfast. (Patient taking differently: Take 325 mg by mouth every other day.) traZODone (DESYREL) 100 mg tablet Take 1.5 tablets by mouth daily at bedtime. apixaban (ELIQUIS) 5 mg tab(s) Take 5 mg by mouth twice daily. gabapentin (NEURONTIN) 100 mg capsule Take 100 mg by mouth twice daily. pantoprazole DR (PROTONIX) 40 mg tablet Take 1 tablet by mouth once daily. aspirin, enteric coated (ASPIRIN, ENTERIC COATED) 81 mg EC tablet Take 81 mg by mouth once daily. folic acid/multivit-min/lutein (CENTRUM SILVER ORAL) Take by mouth. cholecalciferol (VITAMIN D3) 5,000 unit tab Take 1 tablet by mouth once daily. metoprolol succinate ER (TOPROL XL) 50 mg 24 hr tablet Take 50 mg by mouth once daily. BIOTIN ORAL Take 1 tablet by mouth once daily. 500 mg tiZANidine (ZANAFLEX) 4 mg tablet Take 1 tablet by mouth every 8 hours as needed (muscle spasms). No current facility-administered medications for this visit. Review of Systems Cardiovascular: Positive for leg swelling. Objective BP 122/63 Pulse (!) 56 Temp 36.4 C (97.5 F) Resp 18 Wt 78 kg (172 lb) SpO2 92% BMI 30.47 kg/m Physical Exam Constitutional: Appearance: Normal appearance. HENT: Head: Normocephalic. Eyes: Conjunctiva/sclera: Conjunctivae normal. Cardiovascular: Rate and Rhythm: Normal rate and regular rhythm. Heart sounds: Normal heart sounds. Pulmonary: Effort: Pulmonary effort is normal. Breath sounds: Normal breath sounds. Skin: General: Skin is warm and dry. Neurological: General: No focal deficit present. Mental Status: She is alert and oriented to person, place, and time. Psychiatric: Mood and Affect: Mood normal. Behavior: Behavior normal. Thought Content: Thought content normal. Judgment: Judgment normal. Reviewed hospital labs and studies. Assessment and Plan Encounter Diagnosis ICD-10-CM 1. Anemia, unspecified type D64.9 CBC 2. Gastrointestinal hemorrhage, unspecified gastrointestinal hemorrhage type K92.2 CBC 3. AVM (arteriovenous malformation) of colon with hemorrhage K55.21 4. Encounter for long-term current use of medication Z79.899 COMP METABOLIC PANEL 5. Bilateral leg edema R60.0 COMP METABOLIC PANEL 6. Hypokalemia E87.6 COMP METABOLIC PANEL 7. Major depressive disorder, remission status unspecified, unspecified whether recurrent F32.9 8. Paroxysmal A-fib (HCC) I48.0 Stable on med(s). Able to resume Eliquis Above issues addressed with patient. Patient involved in shared decision making for management of medical issues. History and medications reviewed. Epic updated as needed Refills and/or prescriptions taken care of and meds adjusted as indicated after reviewed history, exam and labs. Health Maintenance reviewed. Updated record and/or ordered tests as recorded. Encouraged on efforts at healthy diet and regular exercise and adequate sleep. Follow with GI Stay on current meds. Has refills on meds. Further evaluation and treatment as indicated. Shira Pagan MD documented in this encounter [facility] 03-26-2023 Miscellaneous Notes Patient notified. Please let patient know there were no concerns noted on US. Please let me know if this continues, becomes, larger, becomes painful, or any other new concerns and we will re-evaluate. Thank you Kate Cervantes APRN.CNP documented in this encounter [facility] 01-18-2023 Miscellaneous Notes Patient notified. ----- Message from Brook Horner MD sent at 01/17/2023 9:42 PM EDT ----- Small cyst on the left kidney but other upton the US was normal . The cyst is small and simple and is usually of no concern. A lot of people have these so I would not be worried about it , there is also no recommendation for follow up Brook Ferrera MD documented in this encounter [facility] 01-11-2023 History of Present illness Narrative Radiology Service Progress Note PATIENT NAME: Henny Damian DATE OF SERVICE: January 11, 2023 TIME: 1:32 PM PATIENT IDENTITY VERIFICATION COMPLETED USING TWO (2) IDENTIFIERS: Name and Date of confirmed by patient verbally. FALL SCREENING: Has the patient had 2 falls in the last year or 1 fall with injury or currently using an Ambulatory Assistive Device (Walker, Cane, Wheelchair, Crutches, etc.)? No PATIENT GENDER DATA: Female. status: : No status: NO. PATIENT RELEVANT IMPLANT DATA REVIEWED: Not Applicable RADIOLOGY DEPARTMENT: Ultrasound PERIPHERAL IV DATA: Not applicable SIGNED BY: Holly Segovia RDMS January 11, 2023 1:32 PM documented in this encounter [facility] 01-06-2023 Miscellaneous Notes Images from the original note were not included. Patient notified of message below. Gema Foy RN Result Notes Brook Horner MD 01/05/2023 9:27 PM EDT Thyroid is normal so is the h pylori test. Lets wait for the ultrasound results. Brook Ferrera MD documented in this encounter [facility] 01-04-2023 History of Present illness Narrative Reason for Visit Patient presents with: F/U 6 months Weight Problem: weight has slowly gone up since senior living. abeominal pain: right upper quad and describes it as achy for about 4 months. Henny Damian is a 67 year old female who presents here today for Above Complaints.. Health Maintenance LUNG CANCER SCREENING ADVANCE DIRECTIVE DISCUSSION HPI One concern is her weight which is going up , she is around 9 pounds over baseline over the past 2 years. Retired 2 years ago , and not exercising as she did in the past but eating the same like she did She feels like she is bloated and gassy a lot and abdomen is full. Belly is protruding she feels .No pain but some tenderness She does have acid reflux. Had a recent colonoscopy which was normal. GERD: controlled with pantoprazole. Denies heartburn, difficulty swallowing, abdominal pain, nausea, or vomiting. CAD/HLD/Paroxysmal A-fib - cardiac stent placement in May 14, 2020. Last seen for routine exam by [facility] Dr Mar, last seen Last year by Tiana. Per patient, no concerns noted at appointment but was switched to eliquis 2 times a day from plavix. Exercise: Denies regular aerobic exercise except steps in house. Some of the time will adhere to a healthy low fat diet. Insomnia: Has taken trazadone for this which was controlling it for years. Has noticed recently it is harder to fall asleep and can take a few hours. Has not tried to use an OTC supplement. Prediabetes: Denies fatigue, increase thirst, hunger, or urination. Patient a cigarette smoker. Smokes 1PPD for the past 30 years. Not interested in quitting at this time. Discussed lung cancer screening. Depression: Feels this sis well controlled on Zoloft Sleep: difficulty falling asleep Alcohol use: does not drink any alcohol Drug use: No Appetite: good Stresses: Denies any major stressor. Suicidal Thoughts: No suicidal ideation, intent or plan. No problem-specific Assessment & Plan notes found for this encounter. PAST MEDICAL HISTORY Diagnosis Date Arthritis Atrial fibrillation (HCC) had stent placement Cancer (HCC) Coronary artery disease COVID-19 05/2022 Depression GERD (gastroesophageal reflux disease) Hayfever Hemorrhoid History of transfusion PAST SURGICAL HISTORY Procedure Laterality Date ABDOMINAL SURGERY HX , CLASSIC, ANTE/POST CA 1994 COLONOSCOPY 09/11/2022 repeat in 10 years COLONOSCOPY FLX DX W/COLLJ SPEC WHEN PFRMD 12/19/2018 Colonoscopy COLSC FLX W/RMVL OF TUMOR POLYP LESION SNARE TQ 06/24/2009 polyp at 25cm EGD 09/11/2022 ESOPHAGOGASTRODUODENOSCOPY TRANSORAL DIAGNOSTIC 12/19/2018 EGD HEMORRHOIDECTOMY INT & XTRNL 2/> COLUMN/JULIENNE 03/06/2010 HERNIA REPAIR HX PAST SURGICAL HISTORY OF Late Hernia repair PAST SURGICAL HISTORY OF 2011 polyp vocal cord STENT PLACEMENT 05/14/2020 [facility] THROAT SURGERY PROCEDURE UNLISTED 12/27/2012 polyp vocal cord TONSILLECTOMY HX TOTAL ABDOMINAL HYSTERECT W/WO RMVL TUBE OVARY 1997 R[facility] & LSO - benign indication (endometrial implants) - 1997 VAGINAL HYSTERECTOMY X-RAY LUMBAR SPINE AP & LAT 08/28/2015 [facility]-degenerative changes FAMILY HISTORY Problem Relation Age of Onset Diabetes Mother other (NE) Mother other (NE) Father COPD Sister Emphysema Sister Social History Tobacco Use Smoking status: Every Day Packs/day: 1.00 Years: 30.00 Pack years: 30.00 Types: Cigarettes Smokeless tobacco: Never Vaping Use Vaping Use: Never used Substance Use Topics Alcohol use: Yes Comment: rare Drug use: No Past medical history, appointments, medications, allergies reviewed. Pertinent Lab/Diagnostic Studies are reviewed and discussed today Current Outpatient Medications: sertraline (ZOLOFT) 50 mg tablet pravastatin (PRAVACHOL) 20 mg tablet HYDROcodone-acetaminophen (NORCO) 5-325 mg per tablet ferrous sulfate 325 mg (65 mg iron) tablet traZODone (DESYREL) 100 mg tablet apixaban (ELIQUIS) 5 mg tab(s) gabapentin (NEURONTIN) [address] (PROTONIX) 40 mg tablet aspirin, enteric coated (ASPIRIN, ENTERIC COATED) 81 mg EC tablet folic acid/multivit-min/lutein (CENTRUM SILVER ORAL) cholecalciferol (VITAMIN D3) 5,000 unit tab metoprolol succinate ER (TOPROL XL) 50 mg 24 hr tablet BIOTIN ORAL tiZANidine (ZANAFLEX) 4 mg tablet Review of Systems CONSTITUTIONAL: No fevers, chills night sweats, unintended weight loss CARDIOVASCULAR: No chest pain, dyspnea, palpitations, orthopnea, PND, ankle edema. PULM: No dyspnea, unexplained cough. GI: No dysphagia/odynophagia, problematic reflux, constipation, diarrhea, changes in stool habits, hematochezia, melena. : No new urinary complaints, including dysuria, gross hematuria or pyuria. NEURO: No new balance problems, peripheral weakness/paresthesias or numbness of concern. Physical Exam BP 112/60 Pulse 72 Wt 75.3 kg (166 lb) SpO2 95% BMI 29.41 kg/m General appearance: Well appearing, alert, in no acute distress, well nourished. Skin: Skin color, texture, turgor normal, no suspicious rashes or lesions Head: Normocephalic, no masses, lesions, tenderness or abnormalities Eyes: Anicteric sclera. Pupils are equally round and reactive to light. Extraocular movements are intact. Lungs: Lungs clear to auscultation. No wheezing, rhonchi, rales Heart: RRR without murmur, gallop, or rubs. Abdomen: soft, nondistended, a little tender in the RUQ. No hepatosplenomegaly or masses. ASSESSMENT/PLAN: 1. Bloating - ICD9: 787.3, ICD10: R14.0 (primary diagnosis) - H PYLORI IGG AB 2. Weight gain - ICD9: 783.1, ICD10: R63.5 - TSH BLD 3. Excessive gas - ICD9: 787.3, ICD10: R14.3 - H PYLORI IGG AB 4. Insomnia, unspecified type - ICD9: 780.52, ICD10: G47.00 The patient has insomnia that is controlled on trazodone 5. Tobacco abuse - ICD9: 305.1, ICD10: Z72.0 - Cessation encouraged. - Physiologic and physical aspects of tobacco addiction as well as strategies for quitting were discussed. - Counseling was given focusing on the harmful effects of this addiction especially given the patient's medical condition(s) which will be worsened because of the chemicals in tobacco. 6. Right upper quadrant abdominal tenderness without rebound tenderness - ICD9: 789.61, ICD10: R10.811 - US ABD RIGHT UPPER QUADRANT Brook Horner MD documented in this encounter [facility] 09-19-2022 History of Present illness Narrative Henny Damian 1955 REFERRING PHYSICIAN: Yeni Ferguson MD CHIEF COMPLAINT: Follow Up (Follow up EGD and colonoscopy) HPI: The patient is a 66 year old female is here for follow up of EGD/colonoscopy. This was done on 09/11/2022. She was found to have a small hiatal hernia with sliding component and mild gastritis. The colonoscopy findings of small angioectasia that was not bleeding in the cecum. No definitive findings for iron deficiency anemia. PAST MEDICAL HISTORY Diagnosis Date Arthritis Atrial fibrillation (HCC) had stent placement Cancer (HCC) Coronary artery disease COVID-19 05/2022 Depression GERD (gastroesophageal reflux disease) Hayfever Hemorrhoid History of transfusion PAST SURGICAL HISTORY Procedure Laterality Date ABDOMINAL SURGERY HX , CLASSIC, ANTE/POST CA 1994 COLONOSCOPY 09/11/2022 COLONOSCOPY FLX DX W/COLLJ SPEC WHEN PFRMD 12/19/2018 Colonoscopy COLSC FLX W/RMVL OF TUMOR POLYP LESION SNARE TQ 06/24/2009 polyp at 25cm EGD 09/11/2022 ESOPHAGOGASTRODUODENOSCOPY TRANSORAL DIAGNOSTIC 12/19/2018 EGD HEMORRHOIDECTOMY INT & XTRNL 2/> COLUMN/JULIENNE 03/06/2010 HERNIA REPAIR HX PAST SURGICAL HISTORY OF Late Hernia repair PAST SURGICAL HISTORY OF 2011 polyp vocal cord STENT PLACEMENT 05/14/2020 [facility] THROAT SURGERY PROCEDURE UNLISTED 12/27/2012 polyp vocal cord TONSILLECTOMY HX TOTAL ABDOMINAL HYSTERECT W/WO RMVL TUBE OVARY 1997 [facility] & LSO - benign indication (endometrial implants) - 1997 VAGINAL HYSTERECTOMY X-RAY LUMBAR SPINE AP & LAT 08/28/2015 [facility]-degenerative changes Current Outpatient Medications Medication Sig sertraline (ZOLOFT) 50 mg tablet Take 1 tablet by mouth once daily. pravastatin (PRAVACHOL) 20 mg tablet Take 1 tablet by mouth once daily. HYDROcodone-acetaminophen (NORCO) 5-325 mg per tablet Take 1 tablet by mouth twice daily. ferrous sulfate 325 mg (65 mg iron) tablet Take 1 tablet by mouth daily with breakfast. (Patient taking differently: Take 325 mg by mouth every other day.) traZODone (DESYREL) 100 mg tablet Take 1.5 tablets by mouth daily at bedtime. apixaban (ELIQUIS) 5 mg tab(s) Take 5 mg by mouth twice daily. gabapentin (NEURONTIN) 100 mg capsule Take 100 mg by mouth three times daily. pantoprazole DR (PROTONIX) 40 mg tablet Take 1 tablet by mouth once daily. aspirin, enteric coated (ASPIRIN, ENTERIC COATED) 81 mg EC tablet Take 81 mg by mouth once daily. folic acid/multivit-min/lutein (CENTRUM SILVER ORAL) Take by mouth. cholecalciferol (VITAMIN D3) 5,000 unit tab Take 1 tablet by mouth once daily. metoprolol succinate ER (TOPROL XL) 50 mg 24 hr tablet Take 50 mg by mouth once daily. BIOTIN ORAL Take 1 tablet by mouth once daily. 500 mg tiZANidine (ZANAFLEX) 4 mg tablet Take 1 tablet by mouth every 8 hours as needed (muscle spasms). ALLERGIES: Doxycycline Hcl REVIEW OF SYSTEMS: Denies fevers. PHYSICAL EXAMINATION: General: The patient is 66 year old female, well nourished, well hydrated in no acute distress. The patient is oriented to time, place, and person. VITALS: Pulse 76, temperature 36.7 C (98 F), weight 74.6 kg (164 lb 6.4 oz), SpO2 97 %. Body mass index is 29.12 kg/m . Head: Normal cephalic, atraumatic Eyes: pupils are equally round, sclera are clear/anicteric, wearing glasses Neck is supple with no tracheal deviation Respiratory: Normal respiratory excursion and pattern. Abdominal exam: benign Extremities: no clubbing, cyanosis or edema. Neuro: non focal Psych: normal mood Assessment IMPRESSION: iron deficiency anemia - unspecified PLAN: I have discussed the above with the patient. If there is continued concern for anemia, may consider gastroenterology consultation for ablation of the angioectasia of the cecum, however, I do not believe that this is the etiology of the patient's anemia. The patient acknowledges the above. Patient to return to her PCP for medical care I have answered all questions to the patient s satisfaction and the patient has no further questions. I have confirmed and edited as necessary, the PFSH and ROS obtained by others. updated and recall letter generated for screening colonoscopy in 10 years. . Diagnoses: (D50.9) Iron deficiency anemia, unspecified iron deficiency anemia type (K55.20) Angiodysplasia of colon without bleeding Return to Clinic: The patient is encouraged to return to clinic if any worsening signs/symptoms. I spent a total of 16 minutes on the date of the service which included preparing to see the patient with review of any pertinent laboratory studies/radiological imaging/medical records, [id number] patient care, obtaining oral medical history from the patient in this encounter, counseling and educating the patient/family/caregiver, and ordering and/or scheduling of medications/tests/procedures, and completing appropriate medical documentation. Yeni Ferguson MD documented in this encounter [facility] 09-11-2022 Nurse Note Patient arrived laying on left side. Denies pain at this time. Abdomen appears to be nondistended and soft to touch. documented in this encounter [facility] 09-11-2022 History and physical note UPDATED PROCEDURAL SEDATION HISTORY AND PHYSICAL EXAMINATION SERVICE DATE: 09/11/2022 SERVICE TIME: 11:16 PHYSICAL EXAM MUST BE COMPLETED ON ADMISSION PROCEDURE: EGD and colonoscopy, possible biopsies Procedure Indications: anemia - iron deficiency, FOBT positive The History and Physical (completed in the past 30 days) has been reviewed and the patient has been examined. The contents accurately reflect the patient's condition with the following additions or revisions since the H&P was completed. ASA Class: ASA Class:: Patient with mild systemic disease Examination indicates no changes. AIRWAY: Airway Visualization of Uvula: Yes Mouth opening greater than 2 fingerbreadths: Yes Neck Full Range of Motion: Yes LUNGS: Lungs clear to auscultation CARDIAC: Regular rhythm,Regular rate Provisional Diagnosis/Treatment Plan: EGD and colonoscopy, possible biopsies SEDATION GOAL: Moderate This H&P can be found in the Electronic Medical Record. SIGNATURE: Yeni Ferguson MD PATIENT NAME: Henny Damian DATE: September 11, 2022 TIME: 11:16 AM Source Note - Yeni Ferguson MD - 09/11/2022 11:15 AM EST HISTORY AND PHYSICAL Henny Damian 1955 REFERRING PHYSICIAN: Kate Cervantes APRN.CNP CHIEF COMPLAINT: Consult (Colonoscopy consult, +FOBT) HPI: The patient is a 66 year old female referred by primary care for endoscopy due to iron deficiency anemia and positive stool testing for occult blood. Patient denies any change in bowel habits, weight changes, visible blood in stools, or abdominal pain. She does note a history of hemorrhoids. Denies family history of colon issues. The patient NOTES a history of GERD and is a smoker, less than a pack a day. Henny has undergone prior endoscopy. Most recent colonoscopy performed in [address] Hall at [facility] without concerning findings. Patient's past medical history is significant for atrial fibrillation, GERD, depression, hyperlipidemia, coronary artery disease. She is maintained on multiple routine medications including Zoloft, Zanaflex, trazodone, hydrocodone. She is also maintained on oral anticoagulation. Patient follows with Dr. Horner in primary care for her chronic medical conditions. PAST MEDICAL HISTORY PAST MEDICAL HISTORY Diagnosis Date Atrial fibrillation (HCC) had stent placement COVID-19 05/2022 Depression GERD (gastroesophageal reflux disease) Hayfever Hemorrhoid PAST SURGICAL HISTORY PAST SURGICAL HISTORY Procedure Laterality Date , CLASSIC, ANTE/POST CA 1994 COLONOSCOPY FLX DX W/COLLJ SPEC WHEN PFRMD 12/19/2018 Colonoscopy COLSC FLX W/RMVL OF TUMOR POLYP LESION SNARE TQ 06/24/2009 polyp at 25cm ESOPHAGOGASTRODUODENOSCOPY TRANSORAL DIAGNOSTIC 12/19/2018 EGD HEMORRHOIDECTOMY INT & XTRNL 2/> COLUMN/JULIENNE 03/06/2010 PAST SURGICAL HISTORY OF Late Hernia repair PAST SURGICAL HISTORY OF 2011 polyp vocal cord STENT PLACEMENT 05/14/2020 [facility] THROAT SURGERY PROCEDURE UNLISTED 12/27/2012 polyp vocal cord TOTAL ABDOMINAL HYSTERECT W/WO RMVL TUBE OVARY 1997 [facility] & LSO - benign indication (endometrial implants) - 1997 X-RAY LUMBAR SPINE AP & LAT 08/28/2015 [facility]-degenerative changes CURRENT MEDICATIONS Current Outpatient Medications Medication Sig HYDROcodone-acetaminophen (NORCO) 5-325 mg per tablet Take 1 tablet by mouth twice daily. ferrous sulfate 325 mg (65 mg iron) tablet Take 1 tablet by mouth daily with breakfast. (Patient taking differently: Take 325 mg by mouth every other day.) traZODone (DESYREL) 100 mg tablet Take 1.5 tablets by mouth daily at bedtime. apixaban (ELIQUIS) 5 mg tab(s) Take 5 mg by mouth twice daily. gabapentin (NEURONTIN) 100 mg capsule Take 100 mg by mouth three times daily. pantoprazole DR (PROTONIX) 40 mg tablet Take 1 tablet by mouth once daily. pravastatin (PRAVACHOL) 20 mg tablet Take 1 tablet by mouth once daily. sertraline (ZOLOFT) 50 mg tablet Take 1 tablet by mouth once daily. aspirin, enteric coated (ASPIRIN, ENTERIC COATED) 81 mg EC tablet Take 81 mg by mouth once daily. folic acid/multivit-min/lutein (CENTRUM SILVER ORAL) Take by mouth. cholecalciferol (VITAMIN D3) 5,000 unit tab Take 1 tablet by mouth once daily. metoprolol succinate ER (TOPROL XL) 50 mg 24 hr tablet Take 50 mg by mouth once daily. BIOTIN ORAL Take 1 tablet by mouth once daily. 500 mg tiZANidine (ZANAFLEX) 4 mg tablet Take 1 tablet by mouth every 8 hours as needed (muscle spasms). No current facility-administered medications for this visit. ALLERGIES: Doxycycline Hcl PERSONAL HISTORY: SOCIAL HISTORY Social History Tobacco Use Smoking status: Every Day Packs/day: 1.00 Years: 30.00 Pack years: 30.00 Types: Cigarettes Smokeless tobacco: Never Vaping Use Vaping Use: Never used Substance Use Topics Alcohol use: Yes Comment: rare Drug use: No FAMILY HISTORY: FAMILY HISTORY FAMILY HISTORY Problem Relation Age of Onset Diabetes Mother other (NE) Mother other (NE) Father COPD Sister Emphysema Sister REVIEW OF SYMPTOMS: The review of systems data was entered by the nurse and reviewed by oh Nursing Notes: Flaquita Soares LPN 08/04/2022 5:00 PM Signed REVIEW OF SYSTEMS: General: The patient notes fatigue, denies weight loss, notes weight gain, denies feeling hot, and denies feelings of cold. Eyes: The patient denies glaucoma, denies eye injury/surgery, wears glasses or contacts. Ear/Nose/Throat: The patient notes allergies, denies hayfever, denies ear infections, and denies bloody noses. Cardiovascular: The patient denies chest pain, denies heart disease, denies high blood pressure,notes cardiac stent, denies prior heart attack, notes irregular heart beat, denies high cholesterol, denies poor circulation, denies heart failure, other cardiac issues, notes claudication, denies cold feet, denies peripheral arterial stent. Respiratory: The patient denies tuberculosis, denies pneumonia, notes frequent cough, denies pulmonary embolism, denies shortness of breath, and denies coughing up blood. Gastrointestinal: The patient denies difficulty swallowing, notes acid reflux, denies ulcers, denies vomiting, denies jaundice/hepatitis, denies gallbladder problems, notes black or tarry stools, denies hemorrhoids, notes bleeding from rectum, denies diverticulitis, denies constipation, notes diarrhea, denies loss of stool control, and denies hernias. Kidney/Bladder: The patient denies kidney stones, denies urine infections, and denies bloody urine. Skin: The patient denies a history of skin cancer, denies bleeding/changing moles, and denies a history of skin rash. Neurologic: The patient denies a history of epilepsy/convulsions, notes headaches, denies head/spinal injuries, and denies stroke/TIA. Psychiatric: The patient denies psychiatric medications, notes depression, and denies voices, denies substance abuse. Endocrine: The patient denies thyroid disorders, denies diabetes, and denies hormonal problems. Hematologic: The patient notes a history of bruising, denies bleeding, and denies anemia, denies blood clots. Infections: The patient denies a history of measles and mumps, denies rheumatic fever, and denies sexually transmitted diseases. Musculoskeletal: The patient denies back pain/injury, denies back problems, notes sciatica, denies knee/foot trouble, notes arthritis, or denies gout. When was patient's last Mammogram screening? 2021 Last Colonoscopy: 2018 Flaquita Soares LPN I have confirmed and edited as necessary, the PFSH and ROS obtained by others. Anisha Lindsey PA-C PHYSICAL EXAMINATION: General: The patient is 66 year old female, well nourished, well hydrated in no acute distress. The patient is oriented to time, place, and person. VITALS: Pulse 84, temperature 36.2 C (97.1 F), height 160 cm (5' 3), weight 74.5 kg (164 lb 3.2 oz), SpO2 98 %. Body mass index is 29.09 kg/m . HEENT: Normal cephalic, ataumatic, pupils are equally round, sclera are anicteric, mucous membranes are moist, oropharynx is clear. Neck has no masses, asymmetry or lymphadenopathy. Respiratory: Clear to auscultation and percussion. Normal respiratory excursion and pattern. Cardiac: Examination is regular rate and rhythm. Normal S1/S2 Abdominal exam: Soft, nontender, with no palpable masses. No hepatosplenomegaly. No palpable hernias. Extremities: no clubbing, cyanosis or edema. No adenopathy. LABORATORY VALUES: As Noted RADIOLOGIC STUDIES: As Noted Assessment IMPRESSION: iron deficiency anemia, positive iFOBT PLAN: I have reviewed my findings with the surgeon. Will plan for upper and lower endoscopy. We discussed the risks and benefits of the planned endoscopy. I have informed the patient that complications can occur including failure to complete the endoscopy and perforation. The patient had the opportunity to ask questions concerning the planned endoscopy. My staff has also explained the procedure to the patient in understandable terms and has given the patient printed material concerning the procedure. The patient freely consents to surgery. The patient was offered a surgery/procedure at a [facility] facility. I have counseled the patient regarding the risk of exposure to and/or potential harm posed by the COVID-19 virus with having a surgery/procedure at this time versus the risk of delaying the surgery/procedure. It is not possible to know either the risk of delaying the surgery or procedure or chance of getting an infection with perfect accuracy, but a joint decision was made between the patient and myself to proceed at this time with endoscopy. I have explained to the patient the difference between IV conscious sedation and MAC anesthesia - and I have offered either, according to the patient's wishes. I have explained that with IV conscious sedation there is no anesthesia provider available and therefore there is a limitation of the amount of IV medications that can be given and that the patient may wake up in the middle of the procedure and/or experience pain/discomfort during the procedure. Further discussion was done and the patient was given the opportunity to ask questions and all questions were answered. Patient has had previous endoscopy with MAC, which as discussed would be most ideal given her medication profile and possible decreased effectiveness of conscious sedation. Patient has requested Dr. Hall, but also wanting to have procedure done as soon as possible. Reviewed case with Dr. Hall who is agreeable to attempt endoscopy with conscious sedation in [facility] if patient wishes. Discuss option also of MAC endoscopy in [place] with Dr. Ferguson. I plan to use Golytely bowel preparation Diagnoses: (D64.9) Anemia, unspecified type (R19.5) Positive fecal occult blood test Consultation requested by Kate Cervantes CNPfor an opinion regarding iron deficiency anemia and positive iFOBT. My final recommendations will be communicated back to the requesting physician by way of shared Medical record or letter to requesting physician via US mail. Anisha Lindsey PA-C HISTORY AND PHYSICAL Henny Damian 1955 REFERRING PHYSICIAN: Kate Cervantes APRN.CNP CHIEF COMPLAINT: Consult (Colonoscopy consult, +FOBT) HPI: The patient is a 66 year old female referred by primary care for endoscopy due to iron deficiency anemia and positive stool testing for occult blood. Patient denies any change in bowel habits, weight changes, visible blood in stools, or abdominal pain. She does note a history of hemorrhoids. Denies family history of colon issues. The patient NOTES a history of GERD and is a smoker, less than a pack a day. Henny has undergone prior endoscopy. Most recent colonoscopy performed in [address] Hall at [facility] without concerning findings. Patient's past medical history is significant for atrial fibrillation, GERD, depression, hyperlipidemia, coronary artery disease. She is maintained on multiple routine medications including Zoloft, Zanaflex, trazodone, hydrocodone. She is also maintained on oral anticoagulation. Patient follows with Dr. Horner in primary care for her chronic medical conditions. PAST MEDICAL HISTORY PAST MEDICAL HISTORY Diagnosis Date Atrial fibrillation (HCC) had stent placement COVID-19 05/2022 Depression GERD (gastroesophageal reflux disease) Hayfever Hemorrhoid PAST SURGICAL HISTORY PAST SURGICAL HISTORY Procedure Laterality Date , CLASSIC, ANTE/POST CA 1994 COLONOSCOPY FLX DX W/COLLJ SPEC WHEN PFRMD 12/19/2018 Colonoscopy COLSC FLX W/RMVL OF TUMOR POLYP LESION SNARE TQ 06/24/2009 polyp at 25cm ESOPHAGOGASTRODUODENOSCOPY TRANSORAL DIAGNOSTIC 12/19/2018 EGD HEMORRHOIDECTOMY INT & XTRNL 2/> COLUMN/JULIENNE 03/06/2010 PAST SURGICAL HISTORY OF Late Hernia repair PAST SURGICAL HISTORY OF 2011 polyp vocal cord STENT PLACEMENT 05/14/2020 [facility] THROAT SURGERY PROCEDURE UNLISTED 12/27/2012 polyp vocal cord TOTAL ABDOMINAL HYSTERECT W/WO RMVL TUBE OVARY 1997 RIVER & LSO - benign indication (endometrial implants) - 1997 X-RAY LUMBAR SPINE AP & LAT 08/28/2015 wc-degenerative changes CURRENT MEDICATIONS Current Outpatient Medications Medication Sig HYDROcodone-acetaminophen (NORCO) 5-325 mg per tablet Take 1 tablet by mouth twice daily. ferrous sulfate 325 mg (65 mg iron) tablet Take 1 tablet by mouth daily with breakfast. (Patient taking differently: Take 325 mg by mouth every other day.) traZODone (DESYREL) 100 mg tablet Take 1.5 tablets by mouth daily at bedtime. apixaban (ELIQUIS) 5 mg tab(s) Take 5 mg by mouth twice daily. gabapentin (NEURONTIN) 100 mg capsule Take 100 mg by mouth three times daily. pantoprazole DR (PROTONIX) 40 mg tablet Take 1 tablet by mouth once daily. pravastatin (PRAVACHOL) 20 mg tablet Take 1 tablet by mouth once daily. sertraline (ZOLOFT) 50 mg tablet Take 1 tablet by mouth once daily. aspirin, enteric coated (ASPIRIN, ENTERIC COATED) 81 mg EC tablet Take 81 mg by mouth once daily. folic acid/multivit-min/lutein (CENTRUM SILVER ORAL) Take by mouth. cholecalciferol (VITAMIN D3) 5,000 unit tab Take 1 tablet by mouth once daily. metoprolol succinate ER (TOPROL XL) 50 mg 24 hr tablet Take 50 mg by mouth once daily. BIOTIN ORAL Take 1 tablet by mouth once daily. 500 mg tiZANidine (ZANAFLEX) 4 mg tablet Take 1 tablet by mouth every 8 hours as needed (muscle spasms). No current facility-administered medications for this visit. ALLERGIES: Doxycycline Hcl PERSONAL HISTORY: SOCIAL HISTORY Social History Tobacco Use Smoking status: Every Day Packs/day: 1.00 Years: 30.00 Pack years: 30.00 Types: Cigarettes Smokeless tobacco: Never Vaping Use Vaping Use: Never used Substance Use Topics Alcohol use: Yes Comment: rare Drug use: No FAMILY HISTORY: FAMILY HISTORY FAMILY HISTORY Problem Relation Age of Onset Diabetes Mother other (NE) Mother other (NE) Father COPD Sister Emphysema Sister REVIEW OF SYMPTOMS: The review of systems data was entered by the nurse and reviewed by me Nursing Notes: Flaquita Soares LPN 08/04/2022 5:00 PM Signed REVIEW OF SYSTEMS: General: The patient notes fatigue, denies weight loss, notes weight gain, denies feeling hot, and denies feelings of cold. Eyes: The patient denies glaucoma, denies eye injury/surgery, wears glasses or contacts. Ear/Nose/Throat: The patient notes allergies, denies hayfever, denies ear infections, and denies bloody noses. Cardiovascular: The patient denies chest pain, denies heart disease, denies high blood pressure,notes cardiac stent, denies prior heart attack, notes irregular heart beat, denies high cholesterol, denies poor circulation, denies heart failure, other cardiac issues, notes claudication, denies cold feet, denies peripheral arterial stent. Respiratory: The patient denies tuberculosis, denies pneumonia, notes frequent cough, denies pulmonary embolism, denies shortness of breath, and denies coughing up blood. Gastrointestinal: The patient denies difficulty swallowing, notes acid reflux, denies ulcers, denies vomiting, denies jaundice/hepatitis, denies gallbladder problems, notes black or tarry stools, denies hemorrhoids, notes bleeding from rectum, denies diverticulitis, denies constipation, notes diarrhea, denies loss of stool control, and denies hernias. Kidney/Bladder: The patient denies kidney stones, denies urine infections, and denies bloody urine. Skin: The patient denies a history of skin cancer, denies bleeding/changing moles, and denies a history of skin rash. Neurologic: The patient denies a history of epilepsy/convulsions, notes headaches, denies head/spinal injuries, and denies stroke/TIA. Psychiatric: The patient denies psychiatric medications, notes depression, and denies voices, denies substance abuse. Endocrine: The patient denies thyroid disorders, denies diabetes, and denies hormonal problems. Hematologic: The patient notes a history of bruising, denies bleeding, and denies anemia, denies blood clots. Infections: The patient denies a history of measles and mumps, denies rheumatic fever, and denies sexually transmitted diseases. Musculoskeletal: The patient denies back pain/injury, denies back problems, notes sciatica, denies knee/foot trouble, notes arthritis, or denies gout. When was patient's last Mammogram screening? 2021 Last Colonoscopy: 2018 Flaquita Soares LPN I have confirmed and edited as necessary, the PFSH and ROS obtained by others. Anisha Lindsey PA-C PHYSICAL EXAMINATION: General: The patient is 66 year old female, well nourished, well hydrated in no acute distress. The patient is oriented to time, place, and person. VITALS: Pulse 84, temperature 36.2 C (97.1 F), height 160 cm (5' 3), weight 74.5 kg (164 lb 3.2 oz), SpO2 98 %. Body mass index is 29.09 kg/m . HEENT: Normal cephalic, ataumatic, pupils are equally round, sclera are anicteric, mucous membranes are moist, oropharynx is clear. Neck has no masses, asymmetry or lymphadenopathy. Respiratory: Clear to auscultation and percussion. Normal respiratory excursion and pattern. Cardiac: Examination is regular rate and rhythm. Normal S1/S2 Abdominal exam: Soft, nontender, with no palpable masses. No hepatosplenomegaly. No palpable hernias. Extremities: no clubbing, cyanosis or edema. No adenopathy. LABORATORY VALUES: As Noted RADIOLOGIC STUDIES: As Noted Assessment IMPRESSION: iron deficiency anemia, positive iFOBT PLAN: I have reviewed my findings with the surgeon. Will plan for upper and lower endoscopy. We discussed the risks and benefits of the planned endoscopy. I have informed the patient that complications can occur including failure to complete the endoscopy and perforation. The patient had the opportunity to ask questions concerning the planned endoscopy. My staff has also explained the procedure to the patient in understandable terms and has given the patient printed material concerning the procedure. The patient freely consents to surgery. The patient was offered a surgery/procedure at a [facility] facility. I have counseled the patient regarding the risk of exposure to and/or potential harm posed by the COVID-19 virus with having a surgery/procedure at this time versus the risk of delaying the surgery/procedure. It is not possible to know either the risk of delaying the surgery or procedure or chance of getting an infection with perfect accuracy, but a joint decision was made between the patient and myself to proceed at this time with endoscopy. I have explained to the patient the difference between IV conscious sedation and MAC anesthesia - and I have offered either, according to the patient's wishes. I have explained that with IV conscious sedation there is no anesthesia provider available and therefore there is a limitation of the amount of IV medications that can be given and that the patient may wake up in the middle of the procedure and/or experience pain/discomfort during the procedure. Further discussion was done and the patient was given the opportunity to ask questions and all questions were answered. Patient has had previous endoscopy with MAC, which as discussed would be most ideal given her medication profile and possible decreased effectiveness of conscious sedation. Patient has requested Dr. Hall, but also wanting to have procedure done as soon as possible. Reviewed case with Dr. Hall who is agreeable to attempt endoscopy with conscious sedation in [facility] if patient wishes. Discuss option also of MAC endoscopy in [place] with Dr. Ferguson. I plan to use Golytely bowel preparation Diagnoses: (D64.9) Anemia, unspecified type (R19.5) Positive fecal occult blood test Consultation requested by Kate Cervantes CNPfor an opinion regarding iron deficiency anemia and positive iFOBT. My final recommendations will be communicated back to the requesting physician by way of shared Medical record or letter to requesting physician via US mail. Anisha Lindsey PA-C documented in this encounter [facility] 09-08-2022 Miscellaneous Notes Patient updated to stay on blood thinners per Anisha Lindsey for procedure. Patient voiced understanding. Patient should remain on her blood thinners, does not need to hold these for endoscopy Patient is calling back in regards to her blood thinners and asking if she needs to hold medicine. Please advise the patient. Offered [place] to patient and patient denied to be scheduled in [place] due to transportation and wishes to stay at the [facility] and will await any cancellations with Dr. Hall. Until then she wishes to be schedule on 09/[address] Marty Sandy [employer] 09/11 colon/egd asc Patient prefers but didn't want to wait till his first opening and could either do Tuesdays or Fridays. Patient scheduled 09/[address] Ferguson and denied any other sooner dates. Patient asked to be on waitlist for Dr. Hall in the case anything arises before her 09/11 date Stormy [facility] [employer] Per Anisha Joseph is okay having patient in [facility] documented in this encounter [facility] 09-04-2022 Miscellaneous Notes Patient has been identified by name and date of : Yes Patient phones for refill(s): Requested Prescriptions Pending Prescriptions Disp Refills sertraline (ZOLOFT) 50 mg tablet 90 tablet 3 Sig: Take 1 tablet by mouth once daily. pravastatin (PRAVACHOL) 20 mg tablet 90 tablet 3 Sig: Take 1 tablet by mouth once daily. Date of last office visit in primary care: 06/26/2022, has appt 12/24/2022 Last 2 Encounter Wt Readings: Date: Wt: 08/04/2022 74.5 kg (164 lb 3.2 oz) 07/24/2022 73.9 kg (163 lb) Previous labs/tests for medication: Cholesterol: HDL Cholesterol (mg/dL) Date Value 07/02/2022 41 03/04/2021 50 LDL Cholesterol (mg/dL) Date Value 07/02/2022 74 03/04/2021 94 ALT (U/L) Date Value 07/02/2022 13 03/04/2021 10 Non HDL Cholesterol (mg/dL) Date Value 07/02/2022 131 03/04/2021 126 Please advise. Thank you. Mayda Silva LPN documented in this encounter [facility] 07-31-2022 Miscellaneous Notes Left detailed message on [employer]. Please let patient know her anemia is stable. Continue with plan to see general surgery. How is the constipation from the iron? Thank you Kate Cervantes APRN.CNP documented in this encounter [facility] 07-30-2022 History of Present illness Narrative Patient presents for Pneumococcal vaccine. Denies any problems at this time. Tolerated injection well. Carmel Mullins LPN documented in this encounter [facility] 07-28-2022 Miscellaneous Notes Called PT LVM to call back and schedule. Misty SHAFER Noted. Please let patient know if constipation continues to take let me know and I can order a stool softener for her. Thank you Kate Cervantes APRN.CNP Currently feels like getting a cold wondering if allergies? Having constipation issues with iron pills. Had to stop iron in order to get enough stool to do sample for IFOBT. Normally when off iron can have BM 2-3 times daily but when on iron can hardly go at all and is very uncomfortable. C-scope in the past have been with Dr Hall and would like to keep with him. Does note that she had some hemorrhoid issues in May with weight loss when she had COVID. She plans to take iron every other day to see if that helps with constipation. Will come in to get labs done as ordered. Please let patient know her stool was positive for blood. How is she feeling? It has almost been 2 weeks since her last blood counts, I would like to repeat this to make sure her anemia is stable and consulting her to general surgery for probable colonoscopy. Thank you Kate Cervantes APRN.DEBO documented in this encounter [facility] 07-24-2022 Miscellaneous Notes July 24, 2022 PID: [id number] Henny Damian [address] [place] [address] Dear Ms. Damian, We are pleased to inform you that the results of your recent breast imaging exam on 07/24/2022 are normal. Early detection of cancer is very important. We also understand recommendations regarding breast cancer screening are controversial. Please discuss with your primary care provider which strategy is best for you and whether a mammogram is right for you. Your imaging studies and report will be kept on file at [facility] as part of your permanent medical record and are available for your continuing care. Thank you for allowing us to help in meeting your health care needs. Sincerely, Dr. Dubois Interpreting Radiologist [facility] (Normal over 40) documented in this encounter [facility] 07-24-2022 History of Present illness Narrative Mobility Specialist offered: Patient declines. Henny is a 66 year old who presents for an annual gynecologic exam with complaints, tenderness when she pushes on area below belly fold - thinks due to 3 abdominal surgeries in the and scar tissue . Expecting new grand baby. Postmenopausal: Yes since 2012 RIVER with LSO HRT use: Yes, How long: over 1 year. History of abnormal pap: No Last mammogram: today, normal History of abnormal mammogram: none Sexually active: No Vaginal dryness: No Documentation from previous visit of 09/19/2020 was copied and pasted, documentation has been reviewed and edited as necessary for today's visit. OB History T1 L1 SAB3 IAB0 Ectopic0 Multiple0 Live Births0 Senior Clinical Research Scientist History LMP: Hysterectomy Age at Menarche: Age at First : Age at Menopause: Senior Clinical Research Scientist History Comments: Sexual Activity: Not Currently; No partner data on record Contraception: No contraception data on record PAST MEDICAL HISTORY Diagnosis Date Depression GERD (gastroesophageal reflux disease) Hayfever Hemorrhoid PAST SURGICAL HISTORY Procedure Laterality Date , CLASSIC, ANTE/POST CA 1994 COLONOSCOPY FLX DX W/COLLJ SPEC WHEN PFRMD 12/19/2018 Colonoscopy COLSC FLX W/RMVL OF TUMOR POLYP LESION SNARE TQ 06/24/2009 polyp at 25cm ESOPHAGOGASTRODUODENOSCOPY TRANSORAL DIAGNOSTIC 12/19/2018 EGD HEMORRHOIDECTOMY INT & XTRNL 2/> COLUMN/JULIENNE 03/06/2010 PAST SURGICAL HISTORY OF Late Hernia repair PAST SURGICAL HISTORY OF 2011 polyp vocal cord STENT PLACEMENT 05/14/2020 [facility] THROAT SURGERY PROCEDURE UNLISTED 12/27/2012 polyp vocal cord TOTAL ABDOMINAL HYSTERECT W/WO RMVL TUBE OVARY 1997 RIVER & LSO - benign indication (endometrial implants) - 1997 X-RAY LUMBAR SPINE AP & LAT 08/28/2015 wc-degenerative changes FAMILY HISTORY Problem Relation Age of Onset Diabetes Mother other (NE) Mother other (NE) Father COPD Sister Emphysema Sister SOCIAL HISTORY Social History Tobacco Use Smoking status: Every Day Packs/day: 1.00 Years: 30.00 Pack years: 30.00 Types: Cigarettes Smokeless tobacco: Never Vaping Use Vaping Use: Never used Substance Use Topics Alcohol use: No Drug use: No REVIEW OF SYSTEMS Abdomen: No abdominal pain, nausea, vomiting, diarrhea, or constipation. No bloating, early satiety, indigestion, or increased flatulence. Bladder: No dysuria, gross hematuria, urinary frequency, urinary urgency, or incontinence Breast: No breast lumps, nipple d/c, overlying skin changes, redness or skin retraction Allergies and current medication updated:Yes EXAM: BP 102/68 Ht 5' 3 (1.60m) Wt 163 lb (73.9kg) BMI 28.88 kg/(m^2). GENERAL: pleasant, female in no apparent distress HEENT: Normocephalic, atraumatic, mucus membranes moist, and no lesions NECK: Supple, full range of motion, no adenopathy, and thyroid normal DERMATOLOGY: Normal, without lesions, non-icteric, and non-hirsute BREAST: soft, non-tender, symmetric, no dominant mass, normal nipple-areolar complex, no lymphadenopathy, and no nipple discharge CHEST: Normal inspiratory effort ABDOMEN: soft, no masses, and tenderness along center of CS scar - no erythema or induration PELVIC: external genitalia normal, normal Bartholin's glands, urethra, [place]'s glands, no vulvar lesions, physiologic discharge present, normal appearing perineal body and perianal region, cervix surgically absent BIMANUAL: no adnexal masses, non-tender, and uterus surgically absent RECTOVAGINAL: deferred. NEURO: alert and oriented x3,exam grossly non-focal EXTREMITIES: normal ASSESSMENT/PLAN: 1) Health maintenance: Pap/HPV screening no longer needed Mammogram ordered Mammogram up to date Nutrition, exercise and routine health maintenance exams reviewed. Calcium/Vitamin D supplementation information provided. Colon cancer screening: up to date with screening BMD: 2020 normal 2) Follow up one year or sooner as needed Talia Hart APRN.CNP documented in this encounter [facility] 07-24-2022 History of Present illness Narrative Radiology Service Progress Note PATIENT NAME: Henny Damian DATE OF SERVICE: July 24, 2022 TIME: 12:27 PM PATIENT IDENTITY VERIFICATION COMPLETED USING TWO (2) IDENTIFIERS: Name and Date of confirmed by patient verbally. FALL SCREENING: Has the patient had 2 falls in the last year or 1 fall with injury or currently using an Ambulatory Assistive Device (Walker, Cane, Wheelchair, Crutches, etc.)? No PATIENT GENDER DATA: Female. status: : No status: NO. PATIENT RELEVANT IMPLANT DATA REVIEWED: Not Applicable RADIOLOGY DEPARTMENT: Mammography PERIPHERAL IV DATA: Not applicable SIGNED BY: RT Gerald(R) July 24, 2022 12:27 PM documented in this encounter [facility] 07-16-2022 Miscellaneous Notes Patient notified. Please let patient know that she is iron deficient and her blood counts were slightly low as well. She needs to take a daily iron supplement with food and I am also ordering a stool sample to evaluate for any hidden blood. Iron supplement has bene sent to pharmacy. Thank you Kate Cervantes APRN.CNP documented in this encounter [facility] 06-26-2022 Instructions Kate Cervantes APRN.CNP - 06/26/2022 1:43 PM EDT Start a low dose melatonin to help with sleep. Do not smoke for 2-3 hours before bed. - If this does not help, message me next week and we can increase the trazadone. documented in this encounter [facility] 06-26-2022 History of Present illness Narrative CC: Patient presents with: Medicare Wellness Exam: Medicare Wellness exam Immunizations: Flu vaccination HPI Henny Damian is a 66 year old female who presents today for annual exam. Henny states she feels great and only concern is increase in her chronic insomnia. GERD: controlled with pantoprazole. Denies heartburn, difficulty swallowing, abdominal pain, nausea, or vomiting. CAD/HLD/Paroxysmal A-fib - cardiac stent placement 2 years ago. Last seen for routine exam by [facility] a few months ago. Per patient, no concerns noted at appointment but was switched from plavix to eliquis. Exercise: Denies regular aerobic exercise except steps in house. Some of the time will adhere to a healthy low fat diet. Insomnia: Has taken trazadone for this which was controlling it for years. Has noticed recently it is harder to fall asleep and can take a few hours. Has not tried to use an OTC supplement. Prediabetes: Denies fatigue, increase thirst, hunger, or urination. Patient a cigarette smoker. Smokes 1PPD for the past 30 years. Not interested in quitting at this time. Discussed lung cancer screening. Depression: Feels this sis well controlled on Zoloft Sleep: difficulty falling asleep Alcohol use: does not drink any alcohol Drug use: No Appetite: good Stresses: Denies any major stressor. Suicidal Thoughts: No suicidal ideation, intent or plan REVIEW OF SYSTEMS General: no fevers, no chills, no night sweats, no recurrent infections, no change in appetite, no change in energy, and no significant changes in weight HEENT: no frequent or significant headaches, no changes in hearing, no visual changes, no nose bleeds, no sinus or nasal problems Respiratory: no cough, no wheezing, no shortness of breath, no hemoptysis Cardiovascular: no chest pain, no chest pressure, no palpitations, and no swelling GI: No nausea, vomiting, or diarrhea : No history of dysuria, frequency or incontinence Musculoskeletal: Negative for joint pain or swelling, back pain or muscle pain Skin: Negative for lesions, rash, and itching Psych: Phq2 Is 0 Endocrine: no fatigue, no weight gain, no weight loss, no hair loss, no dry skin, no cold intolerance, no heat intolerance, no polyuria, no polyphagia, and no polydipsia Neurologic: No headache, weakness, numbness, tingling, neck stiffness, tremor, vertigo, dizziness, memory loss, syncope. PAST MEDICAL HISTORY Diagnosis Date Depression GERD (gastroesophageal reflux disease) Hayfever Hemorrhoid PAST SURGICAL HISTORY Procedure Laterality Date , CLASSIC, ANTE/POST CA 1994 COLONOS W/REM POLYP SNARE 06/24/2009 polyp at 25cm COLONOSCOP W/ OR W/O BRSH SPEC 12/19/2018 Colonoscopy EGD W/O OR W/BRUSH/WASH 12/19/2018 EGD HEMORRHOIDECTOMY,INT/EXT,COMPLX 03/06/2010 PAST SURGICAL HISTORY OF Late Hernia repair PAST SURGICAL HISTORY OF 2011 polyp vocal cord STENT PLACEMENT 05/14/2020 [facility] THROAT SURGERY PROCEDURE UNLISTED 12/27/2012 polyp vocal cord TOTAL ABDOM HYSTERECTOMY 1997 [facility] & LSO - benign indication (endometrial implants) - 1997 X-RAY LUMBAR SPINE AP & LAT 08/28/2015 [facility]-degenerative changes ALLERGIES Doxycycline Hcl MEDICATIONS pantoprazole DR (PROTONIX) 40 mg tablet take 1 tablet by mouth once daily clopidogrel (PLAVIX) 75 mg tablet Take 1 tablet by mouth once daily. pravastatin (PRAVACHOL) 20 mg tablet Take 1 tablet by mouth once daily. traZODone (DESYREL) 100 mg tablet Take 1 tablet by mouth daily at bedtime. sertraline (ZOLOFT) 50 mg tablet Take 1 tablet by mouth once daily. metoprolol succinate ER (TOPROL XL) 50 mg 24 hr tablet Take 50 mg by mouth once daily. apixaban (ELIQUIS) 5 mg tab(s) Take 5 mg by mouth twice daily. gabapentin (NEURONTIN) 100 mg capsule Take 100 mg by mouth three times daily. aspirin, enteric coated (ASPIRIN, ENTERIC COATED) 81 mg EC tablet Take 81 mg by mouth once daily. folic acid/multivit-min/lutein (CENTRUM SILVER ORAL) Take by mouth. cholecalciferol (VITAMIN D3) 5,000 unit tab Take 1 tablet by mouth once daily. isosorbide mononitrate ER (IMDUR) 30 mg 24 hr tablet Take 30 mg by mouth once daily. diltiazem CD (CARDIZEM CD) 120 mg 24 hr capsule Take 1 capsule by mouth once daily. (Patient not taking: Reported on 06/20/2021 ) Biotin 1 mg tab Take 1 tablet by mouth once daily. tiZANidine (ZANAFLEX) 4 mg tablet Take 1 tablet by mouth every 8 hours as needed (muscle spasms). FAMILY HISTORY Problem Relation Age of Onset Diabetes Mother other (NE) Mother other (NE) Father COPD Sister Emphysema Sister Social History Tobacco Use Smoking status: Every Day Packs/day: 0.50 Years: 30.00 Pack years: 15.00 Types: Cigarettes Smokeless tobacco: Never Substance Use Topics Alcohol use: No Drug use: No PHYSICAL EXAM BP 112/66 Pulse 68 Resp 16 Wt 72.6 kg (160 lb) BMI 28.34 kg/m General Appearance: well appearing, in no acute distress, alert Pysch: mood and affect broad and appropriate Skin: Skin color, texture, turgor normal for age; Eyes: conjunctiva pink and moist, no icterus, sclera white, non-injected Neck: Thyroid normal size and symmetric without palpable nodules, No adenopathy Lymph nodes: No cervical lymphadenopathy, No supraclavicular lymphadenopathy, Lungs: Lungs clear to auscultation. No wheezing, rhonchi, rales. Heart: RRR without murmur, gallop, or rubs. No ectopy Abdomen: Abdomen soft, non-tender. Bowel sounds normal. No masses, organomegaly Extremities: No deformities, edema, skin discoloration, clubbing or cyanosis. Good capillary refill. Musculoskeletal: No joint swelling, deformity, or tenderness Neurological: Gait normal. Reflexes normal and symmetric. Sensation grossly intact. Health maintenance reviewed with patient: HEPATITIS C SCREENING Never done SHINGRIX VACCINE(1 of 2) Never done PNEUMOCOCCAL: 65+(2 - PCV) due on 07/26/2016 MAMMOGRAM due on 09/19/2021 ADVANCE DIRECTIVE DISCUSSION Never done COVID-19 VACCINE(3 - Booster for Moderna series) due on 02/03/2022 LDL CHOLESTEROL due on 03/04/2022 ANNUAL PCP TEAM CHRONIC DISEASE VISIT due on 06/20/2022 INFLUENZA(1) due on 06/11/2022 DIABETES SCREEN due on 03/04/2024 LIPID SCREEN due on 03/04/2026 COLORECTAL CANCER SCREENING due on 12/19/2028 DTAP,TDAP,TD(2 - Td or Tdap) due on 07/04/2029 BONE DENSITY Completed DATA REVIEWED: No new labs ASSESSMENT/PLAN: 1. Medicare annual wellness visit, subsequent - ICD9: V70.0, ICD10: Z00.00 (primary diagnosis) - Counseled on healthy diet and regular exercise - Calcium intake with supplements or by diet of 1000 mg/day for under 50, 1252-5597 mg/day for 50+ - Discussed need and benefit for weight loss. BMI 28.34 kg/(m^2) - Lung cancer screening recommended - Smoking cessation encouraged; discussed risks to health and quitting strategies. Patient is not ready to quit - Depression screening tool completed and reviewed with patient. Based on score and interview, patient is not at risk for depression and recommended no further intervention at this time. - Follow up for annual exam in one year 2. Reflux esophagitis - ICD9: 530.11, ICD10: K21.00 - controlled - Discussed lifestyle modifications including losing weight, limiting caffeine, no meals three hours before sleep, and head of bed elevation - PANTOPRAZOLE 40 MG TABLET,DELAYED RELEASE 3. Insomnia, unspecified type - ICD9: 780.52, ICD10: G47.00 Discussed options - patient to trial a low dose melatonin and if not successful she will message next week and we will increase her trazadone - limit caffeine, no screen time a couple hours before bed. 4. 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 - ICD9: 414.01, ICD10: I25.10 Stable - continue with current medications and following up with cardiology as directed by them. - LIPID PANEL BASIC - COMP METABOLIC PANEL 5. Mixed hyperlipidemia - ICD9: 272.2, ICD10: E78.2 - to be determined upon return of lab results - Continue current medication. - Encouraged following a low fat, low cholesterol diet. - Discussed the benefits of regular aerobic exercise and weight loss. 6. Paroxysmal A-fib (HCC) - ICD9: 427.31, ICD10: I48.0 - stable - apical regular in office today - continue with medication and following up with cardiology as directed by them 7. Current use of manager intermediate anticoagulation - ICD9: V58.61, ICD10: Z79.01 - CBC + DIFF 8. Prediabetes - ICD9: 790.29, ICD10: R73.03 - COMP METABOLIC PANEL - CBC + DIFF - HGB A1C 9. Vitamin D deficiency - ICD9: 268.9, ICD10: E55.9 - VITAMIN D 25 HYDROXY 10. Tobacco abuse - ICD9: 305.1, ICD10: Z72.0 - Cessation encouraged. - Physiologic and physical aspects of tobacco addiction as well as strategies for quitting were discussed. - Counseling was given focusing on the harmful effects of this addiction especially given the patient's medical condition(s) which will be worsened because of the chemicals in tobacco. 11. Need for influenza vaccination - ICD9: V04.81, ICD10: Z23 - INFLUENZA SEASONAL QUADRIVALENT HIGH DOSE AGE 65+ 12. Current mild episode of major depressive disorder, unspecified whether recurrent (HCC) - ICD9: 296.21, ICD10: F32.0 -stable on current regimen - - Reviewed concept of neurochemical imbalance wth depression/anxiety, treatment options and benefits of counseling in combination with medication. Also reviewed benefits of sleep hygeine, diet and exercise - Instructed patient to contact office or [id number] after-hours promptly should condition worsen or any new symptoms appear. - Counseling Center [facility] and after hours crisis line Prescription instructions reviewed with patient as applicable. Potential red flag symptoms discussed with the patient. Reviewed appropriate action plan to take if red flag symptoms occur. Patient agreeable to treatment plan. Kate Cervantes APRN.CNP Medicare Yearly Visit Medical B eligibilty date 2020 Date of last exam None PAST MEDICAL HISTORY Diagnosis Date Depression GERD (gastroesophageal reflux disease) Hayfever Hemorrhoid PAST SURGICAL HISTORY Procedure Laterality Date , CLASSIC, ANTE/POST CA 1994 COLONOSCOPY FLX DX W/COLLJ SPEC WHEN PFRMD 12/19/2018 Colonoscopy COLSC FLX W/RMVL OF TUMOR POLYP LESION SNARE TQ 06/24/2009 polyp at 25cm ESOPHAGOGASTRODUODENOSCOPY TRANSORAL DIAGNOSTIC 12/19/2018 EGD HEMORRHOIDECTOMY INT & XTRNL 2/> COLUMN/JULIENNE 03/06/2010 PAST SURGICAL HISTORY OF Late Hernia repair PAST SURGICAL HISTORY OF 2011 polyp vocal cord STENT PLACEMENT 05/14/2020 [facility] THROAT SURGERY PROCEDURE UNLISTED 12/27/2012 polyp vocal cord TOTAL ABDOMINAL HYSTERECT W/WO RMVL TUBE OVARY 1997 [facility] & LSO - benign indication (endometrial implants) - 1997 X-RAY LUMBAR SPINE AP & LAT 08/28/2015 [facility]-degenerative changes ALLERGIES: Doxycycline Hcl Medications reviewed: Yes FAMILY HISTORY Problem Relation Age of Onset Diabetes Mother other (NE) Mother other (NE) Father COPD Sister Emphysema Sister SOCIAL HISTORY: Social History Tobacco Use Smoking status: Every Day Packs/day: 1.00 Years: 30.00 Pack years: 30.00 Types: Cigarettes Smokeless tobacco: Never Vaping Use Vaping Use: Never used Substance Use Topics Alcohol use: No Drug use: No Henny denies regular aerobic exercise. She watches her diet for sodium, low fat and low cholesterol some of the time. List of current specialists seen: Dr. Mar - cardiology for CAD, and Paroxysmal Afib Dr Maria Isabel Arreola - pain mgmt Spool Sander - unsure of name but is in [facility], Dr. Hall Hemorrhoids. End of Live Planning discussed including patients advanced directive wishes: Yes Currently does not have PHQ-2 / Depression screen She in the past two weeks denies having felt down, depressed, hopeless, or with little interest or pleasure in doing things. PHQ-2 Score: 0 Functional Ability/Safety Screen 1. Was the patient's timed Up and Go test unsteady or longer than 30 seconds? No 2. Does the patient need help with the phone, transportation, shopping,preparing meals, housework, laundry, medications or managing money? No 3. Does your home have rugs in the hallway, lack of grab bars in the bathroom, lack of handrails on the stairs or have poor lighting? No Hearing Evaluation: normal PHYSICAL EXAM BP 112/66 Pulse 68 Resp 16 Wt 72.6 kg (160 lb) BMI 28.34 kg/m Alert and oriented X 3: YES Body mass index is 28.34 kg/m . CDT normal 3/3 word recall ASSESSMENT/PLAN: 66 year old female The following prevention plan was discussed during the office visit and provided to the patient: - Counseled on healthy diet and regular exercise - Discussed need for and benefit of weight loss. BMI 28.34 kg/(m^2) - Smoking cessation counseling - Fall avoidance - Vaccines recommended COVID-19, Pneumococcal, Influenza, and Shingrix at pharmacy - Lung cancer screening with low-dose CT - will further discuss at follow up. - Lipid panel - Depression screening - Glaucoma screening Kate Cervantes APRN.CNP documented in this encounter [facility] 06-08-2022 Miscellaneous Notes Patient is due for annual exam in June. Thank you Kate Cervantes APRN.DEBO Patient has been identified by name and date of : Yes Patient phones for refill(s): Requested Prescriptions Pending Prescriptions Disp Refills pantoprazole DR (PROTONIX) 40 mg tablet [Pharmacy Med Name: PANTOPRAZOLE SOD DR 40 MG TAB] 90 tablet 1 Sig: take 1 tablet by mouth once daily Date of last office visit in primary care: 06/20/21 Last 2 Encounter Wt Readings: Date: Wt: 07/08/2021 72 kg (158 lb 12.8 oz) 06/20/2021 71.2 kg (157 lb) Previous labs/tests for medication: Not applicable Please advise. Thank you. Brianna Frost LPN documented in this encounter [facility] 03-26-2022 Miscellaneous Notes Patient has been identified by name and date of : Yes Pending Prescriptions Disp Refills PANTOPRAZOLE 40 MG TABLET,DELAYED RELEASE 90 tablet 1 Sig: Take 1 tablet by mouth once daily. TU: No RX INSTRUCTIONS: Patient aware RX will be sent to pharmacy. No need to notify patient. Laila Garner documented in this encounter [facility] 08-10-2016 History of Past i llness Narrative Problem Noted Date Resolved Date Anal or rectal pain 08/10/2016 03/05/2021 Sebaceous cyst 07/19/2015 03/05/2021 Skin lesion of face 07/19/2015 03/05/2021 Cough 02/14/2010 03/05/2021 Routine gynecological examination 01/03/2010 03/05/2021 Overview: [facility] [place] Internal hemorrhoids without mention of complica tion 12/30/2009 03/05/2021 Blood in stool 06/12/2009 03/05/2021 Inguinal pain 05/31/2009 03/05/2021 documented as of this encounter (statuses as of 03/27/2022) [facility] History of Past illness Narrative* Problem Noted Date Resolved Date Anal or rectal pain 08/10/2016 03/05/2021 Sebaceous cyst 07/19/2015 03/05/2021 Skin lesion of face 07/19/2015 03/05/2021 Cough 02/14/2010 03/05/2021 Routine gynecological examination 01/03/2010 03/05/2021 Overview: [facility], [facility] [place] Internal hemorrhoids without mention of complica tion 12/30/2009 03/05/2021 Blood in stool 06/12/2009 03/05/2021 Inguinal pain 05/31/2009 03/05/2021 documented as of this encounter (statuses as of 06/08/2022) [facility] History of Past illness Narrative* Problem Noted Date Resolved Date Anal or rectal pain 08/10/2016 03/05/2021 Sebaceous cyst 07/19/2015 03/05/2021 Skin lesion of face 07/19/2015 03/05/2021 Cough 02/14/2010 03/05/2021 Routine gynecological examination 01/03/2010 03/05/2021 Overview: [facility], [facility] [place] Internal hemorrhoids without mention of complica tion 12/30/2009 03/05/2021 Blood in stool 06/12/2009 03/05/2021 Inguinal pain 05/31/2009 03/05/2021 documented as of this encounter (statuses as of 06/27/2022) [facility] History of Past illness Narrative* Problem Noted Date Resolved Date Anal or rectal pain 08/10/2016 03/05/2021 Sebaceous cyst 07/19/2015 03/05/2021 Skin lesion of face 07/19/2015 03/05/2021 Cough 02/14/2010 03/05/2021 Routine gynecological examination 01/03/2010 03/05/2021 Overview: [facility], [facility] [place] Internal hemorrhoids without mention of complica tion 12/30/2009 03/05/2021 Blood in stool 06/12/2009 03/05/2021 Inguinal pain 05/31/2009 03/05/2021 documented as of this encounter (statuses as of 07/16/2022) [facility] History of Past illness Narrative* Problem Noted Date Resolved Date Anal or rectal pain 08/10/2016 03/05/2021 Sebaceous cyst 07/19/2015 03/05/2021 Skin lesion of face 07/19/2015 03/05/2021 Cough 02/14/2010 03/05/2021 Routine gynecological examination 01/03/2010 03/05/2021 Overview: [facility], [facility] [place] Internal hemorrhoids without mention of complica tion 12/30/2009 03/05/2021 Blood in stool 06/12/2009 03/05/2021 Inguinal pain 05/31/2009 03/05/2021 documented as of this encounter (statuses as of 07/24/2022) [facility] History of Past illness Narrative* Problem Noted Date Resolved Date Anal or rectal pain 08/10/2016 03/05/2021 Sebaceous cyst 07/19/2015 03/05/2021 Skin lesion of face 07/19/2015 03/05/2021 Cough 02/14/2010 03/05/2021 Routine gynecological examination 01/03/2010 03/05/2021 Overview: [facility], [facility] [place] Internal hemorrhoids without mention of complica tion 12/30/2009 03/05/2021 Blood in stool 06/12/2009 03/05/2021 Inguinal pain 05/31/2009 03/05/2021 documented as of this encounter (statuses as of 07/25/2022) [facility] History of Past illness Narrative* Problem Noted Date Resolved Date Anal or rectal pain 08/10/2016 03/05/2021 Sebaceous cyst 07/19/2015 03/05/2021 Skin lesion of face 07/19/2015 03/05/2021 Cough 02/14/2010 03/05/2021 Routine gynecological examination 01/03/2010 03/05/2021 Overview: [facility], [facility] [place] Internal hemorrhoids without mention of complica tion 12/30/2009 03/05/2021 Blood in stool 06/12/2009 03/05/2021 Inguinal pain 05/31/2009 03/05/2021 documented as of this encounter (statuses as of 07/28/2022) [facility] History of Past illness Narrative* Problem Noted Date Resolved Date Anal or rectal pain 08/10/2016 03/05/2021 Sebaceous cyst 07/19/2015 03/05/2021 Skin lesion of face 07/19/2015 03/05/2021 Cough 02/14/2010 03/05/2021 Routine gynecological examination 01/03/2010 03/05/2021 Overview: [facility], [facility] [place] Internal hemorrhoids without mention of complica tion 12/30/2009 03/05/2021 Blood in stool 06/12/2009 03/05/2021 Inguinal pain 05/31/2009 03/05/2021 documented as of this encounter (statuses as of 07/28/2022) [facility] History of Past illness Narrative* Problem Noted Date Resolved Date Anal or rectal pain 08/10/2016 03/05/2021 Sebaceous cyst 07/19/2015 03/05/2021 Skin lesion of face 07/19/2015 03/05/2021 Cough 02/14/2010 03/05/2021 Routine gynecological examination 01/03/2010 03/05/2021 Overview: [facility], [facility] [place] Internal hemorrhoids without mention of complica tion 12/30/2009 03/05/2021 Blood in stool 06/12/2009 03/05/2021 Inguinal pain 05/31/2009 03/05/2021 documented as of this encounter (statuses as of 07/30/2022) [facility] History of Past illness Narrative* Problem Noted Date Resolved Date Anal or rectal pain 08/10/2016 03/05/2021 Sebaceous cyst 07/19/2015 03/05/2021 Skin lesion of face 07/19/2015 03/05/2021 Cough 02/14/2010 03/05/2021 Routine gynecological examination 01/03/2010 03/05/2021 Overview: [facility], [facility] [place] Internal hemorrhoids without mention of complica tion 12/30/2009 03/05/2021 Blood in stool 06/12/2009 03/05/2021 Inguinal pain 05/31/2009 03/05/2021 documented as of this encounter (statuses as of 07/31/2022) [facility] History of Past illness Narrative* Problem Noted Date Resolved Date Anal or rectal pain 08/10/2016 03/05/2021 Sebaceous cyst 07/19/2015 03/05/2021 Skin lesion of face 07/19/2015 03/05/2021 Cough 02/14/2010 03/05/2021 Routine gynecological examination 01/03/2010 03/05/2021 Overview: [facility], [facility] [place] Internal hemorrhoids without mention of complica tion 12/30/2009 03/05/2021 Blood in stool 06/12/2009 03/05/2021 Inguinal pain 05/31/2009 03/05/2021 documented as of this encounter (statuses as of 09/04/2022) [facility] History of Past illness Narrative* Problem Noted Date Resolved Date Anal or rectal pain 08/10/2016 03/05/2021 Sebaceous cyst 07/19/2015 03/05/2021 Skin lesion of face 07/19/2015 03/05/2021 Cough 02/14/2010 03/05/2021 Routine gynecological examination 01/03/2010 03/05/2021 Overview: [facility], [place] Internal hemorrhoids without mention of complica tion 12/30/2009 03/05/2021 Blood in stool 06/12/2009 03/05/2021 Inguinal pain 05/31/2009 03/05/2021 documented as of this encounter (statuses as of 09/08/2022) [facility] History of Past illness Narrative* Problem Noted Date Resolved Date Anal or rectal pain 08/10/2016 03/05/2021 Sebaceous cyst 07/19/2015 03/05/2021 Skin lesion of face 07/19/2015 03/05/2021 Cough 02/14/2010 03/05/2021 Routine gynecological examination 01/03/2010 03/05/2021 Overview: [facility], [facility] [place] Internal hemorrhoids without mention of complica tion 12/30/2009 03/05/2021 Blood in stool 06/12/2009 03/05/2021 Inguinal pain 05/31/2009 03/05/2021 documented as of this encounter (statuses as of 09/20/2022) [facility] History of Past illness Narrative* Problem Noted Date Resolved Date Anal or rectal pain 08/10/2016 03/05/2021 Sebaceous cyst 07/19/2015 03/05/2021 Skin lesion of face 07/19/2015 03/05/2021 Cough 02/14/2010 03/05/2021 Routine gynecological examination 01/03/2010 03/05/2021 Overview: [facility], [facility] [place] Internal hemorrhoids without mention of complica tion 12/30/2009 03/05/2021 Blood in stool 06/12/2009 03/05/2021 Inguinal pain 05/31/2009 03/05/2021 documented as of this encounter (statuses as of 01/05/2023) [facility] History of Past illness Narrative* Problem Noted Date Resolved Date Anal or rectal pain 08/10/2016 03/05/2021 Sebaceous cyst 07/19/2015 03/05/2021 Skin lesion of face 07/19/2015 03/05/2021 Cough 02/14/2010 03/05/2021 Routine gynecological examination 01/03/2010 03/05/2021 Overview: [facility], [facility] [place] Internal hemorrhoids without mention of complica tion 12/30/2009 03/05/2021 Blood in stool 06/12/2009 03/05/2021 Inguinal pain 05/31/2009 03/05/2021 documented as of this encounter (statuses as of 01/06/2023) [facility] History of Past illness Narrative* Problem Noted Date Resolved Date Anal or rectal pain 08/10/2016 03/05/2021 Sebaceous cyst 07/19/2015 03/05/2021 Skin lesion of face 07/19/2015 03/05/2021 Cough 02/14/2010 03/05/2021 Routine gynecological examination 01/03/2010 03/05/2021 Overview: [facility], [place] Internal hemorrhoids without mention of complica tion 12/30/2009 03/05/2021 Blood in stool 06/12/2009 03/05/2021 Inguinal pain 05/31/2009 03/05/2021 documented as of this encounter (statuses as of 01/18/2023) [facility] History of Past illness Narrative* Problem Noted Date Resolved Date Anal or rectal pain 08/10/2016 03/05/2021 Sebaceous cyst 07/19/2015 03/05/2021 Skin lesion of face 07/19/2015 03/05/2021 Cough 02/14/2010 03/05/2021 Routine gynecological examination 01/03/2010 03/05/2021 Overview: [facility], [place] Internal hemorrhoids without mention of complica tion 12/30/2009 03/05/2021 Blood in stool 06/12/2009 03/05/2021 Inguinal pain 05/31/2009 03/05/2021 documented as of this encounter (statuses as of 03/26/2023) [facility] History of Past illness Narrative* Problem Noted Date Diagnosed Date Resolved Date Anal or rectal pain 08/10/2016 03/05/20 21 Sebaceous cyst 07/19/2015 03/05/2021 Skin lesion of face 07/19/2015 03/05/20 21 Cough 02/14/2010 03/05/2021 Routine gynecological examination 01/03/2010 03/05/2021 Overview: [facility], [facility] [place] Internal hemorrhoids without mention of complication 12/30/2009 03/05/2021 Blood in stool 06/12/2009 03/05/2021 Inguinal pain 05/31/2009 03/05/2021 documented as of this encounter (statuses as of 05/06/2023) [facility] History of Past illness Narrative* Problem Noted Date Diagnosed Date Resolved Date Anal or rectal pain 08/10/2016 03/05/20 21 Sebaceous cyst 07/19/2015 03/05/2021 Skin lesion of face 07/19/2015 03/05/20 21 Cough 02/14/2010 03/05/2021 Routine gynecological examination 01/03/2010 03/05/2021 Overview: [facility], [facility] [place] Internal hemorrhoids without mention of complication 12/30/2009 03/05/2021 Blood in stool 06/12/2009 03/05/2021 Inguinal pain 05/31/2009 03/05/2021 documented as of this encounter (statuses as of 05/09/2023) [facility] History of Past illness Narrative* Problem Noted Date Diagnosed Date Resolved Date Anal or rectal pain 08/10/2016 03/05/20 21 Sebaceous cyst 07/19/2015 03/05/2021 Skin lesion of face 07/19/2015 03/05/20 21 Cough 02/14/2010 03/05/2021 Routine gynecological examination 01/03/2010 03/05/2021 Overview: [facility], [facility] [place] Internal hemorrhoids without mention of complication 12/30/2009 03/05/2021 Blood in stool 06/12/2009 03/05/2021 Inguinal pain 05/31/2009 03/05/2021 documented as of this encounter (statuses as of 05/12/2023) [facility] History of Past illness Narrative* Problem Noted Date Diagnosed Date Resolved Date Anal or rectal pain 08/10/2016 03/05/20 21 Sebaceous cyst 07/19/2015 03/05/2021 Skin lesion of face 07/19/2015 03/05/20 21 Cough 02/14/2010 03/05/2021 Routine gynecological examination 01/03/2010 03/05/2021 Overview: [facility], [facility] [place] Internal hemorrhoids without mention of complication 12/30/2009 03/05/2021 Blood in stool 06/12/2009 03/05/2021 Inguinal pain 05/31/2009 03/05/2021 documented as of this encounter (statuses as of 05/17/2023) [facility] History of Past illness Narrative* Problem Noted Date Diagnosed Date Resolved Date Anal or rectal pain 08/10/2016 03/05/20 21 Sebaceous cyst 07/19/2015 03/05/2021 Skin lesion of face 07/19/2015 03/05/20 21 Cough 02/14/2010 03/05/2021 Routine gynecological examination 01/03/2010 03/05/2021 Overview: [facility], [facility] [place] Internal hemorrhoids without mention of complication 12/30/2009 03/05/2021 Blood in stool 06/12/2009 03/05/2021 Inguinal pain 05/31/2009 03/05/2021 documented as of this encounter (statuses as of 05/22/2023) [facility] History of Past illness Narrative* Problem Noted Date Diagnosed Date Resolved Date Anal or rectal pain 08/10/2016 03/05/20 21 Sebaceous cyst 07/19/2015 03/05/2021 Skin lesion of face 07/19/2015 03/05/20 21 Cough 02/14/2010 03/05/2021 Routine gynecological examination 01/03/2010 03/05/2021 Overview: [facility], [facility] [place] Internal hemorrhoids without mention of complication 12/30/2009 03/05/2021 Blood in stool 06/12/2009 03/05/2021 Inguinal pain 05/31/2009 03/05/2021 documented as of this encounter (statuses as of 05/27/2023) [facility] History of Past illness Narrative* Problem Noted Date Diagnosed Date Resolved Date Anal or rectal pain 08/10/2016 03/05/20 21 Sebaceous cyst 07/19/2015 03/05/2021 Skin lesion of face 07/19/2015 03/05/20 21 Cough 02/14/2010 03/05/2021 Routine gynecological examination 01/03/2010 03/05/2021 Overview: [facility], [facility] [place] Internal hemorrhoids without mention of complication 12/30/2009 03/05/2021 Blood in stool 06/12/2009 03/05/2021 Inguinal pain 05/31/2009 03/05/2021 documented as of this encounter (statuses as of 05/27/2023) [facility] History of Past illness Narrative* Problem Noted Date Diagnosed Date Resolved Date Anal or rectal pain 08/10/2016 03/05/20 21 Sebaceous cyst 07/19/2015 03/05/2021 Skin lesion of face 07/19/2015 03/05/20 21 Cough 02/14/2010 03/05/2021 Routine gynecological examination 01/03/2010 03/05/2021 Overview: [facility], [facility] [place] Internal hemorrhoids without mention of complication 12/30/2009 03/05/2021 Blood in stool 06/12/2009 03/05/2021 Inguinal pain 05/31/2009 03/05/2021 documented as of this encounter (statuses as of 07/23/2023) [facility] History of Past illness Narrative* Problem Noted Date Diagnosed Date Resolved Date Anal or rectal pain 08/10/2016 03/05/20 21 Sebaceous cyst 07/19/2015 03/05/2021 Skin lesion of face 07/19/2015 03/05/20 21 Cough 02/14/2010 03/05/2021 Routine gynecological examination 01/03/2010 03/05/2021 Overview: [facility], [facility] [place] Internal hemorrhoids without mention of complication 12/30/2009 03/05/2021 Blood in stool 06/12/2009 03/05/2021 Inguinal pain 05/31/2009 03/05/2021 documented as of this encounter (statuses as of 08/03/2023) [facility] History of Past illness Narrative* Problem Noted Date Diagnosed Date Resolved Date Anal or rectal pain 08/10/2016 05/26/20 21 Sebaceous cyst 07/19/2015 03/05/2021 Skin lesion of face 07/19/2015 03/05/20 21 Cough 02/14/2010 03/05/2021 Routine gynecological examination 01/03/2010 03/05/2021 Overview: [facility], [facility] [place] Internal hemorrhoids without mention of complication 12/30/2009 03/05/2021 Blood in stool 06/12/2009 03/05/2021 Inguinal pain 05/31/2009 03/05/2021 documented as of this encounter (statuses as of 08/15/2023) [facility] History of Past illness Narrative* Problem Noted Date Diagnosed Date Resolved Date Anal or rectal pain 08/10/2016 03/05/20 21 Sebaceous cyst 07/19/2015 03/05/2021 Skin lesion of face 07/19/2015 03/05/20 21 Cough 02/14/2010 03/05/2021 Routine gynecological examination 01/03/2010 03/05/2021 Overview: [facility], [facility] [place] Internal hemorrhoids without mention of complication 12/30/2009 03/05/2021 Blood in stool 06/12/2009 03/05/2021 Inguinal pain 05/31/2009 03/05/2021 documented as of this encounter (statuses as of 08/15/2023) [facility] History of Past illness Narrative* Problem Noted Date Diagnosed Date Resolved Date Anal or rectal pain 08/10/2016 03/05/20 21 Sebaceous cyst 07/19/2015 03/05/2021 Skin lesion of face 07/19/2015 03/05/20 21 Cough 02/14/2010 03/05/2021 Routine gynecological examination 01/03/2010 03/05/2021 Overview: [facility], [facility] [place] Internal hemorrhoids without mention of complication 12/30/2009 03/05/2021 Blood in stool 06/12/2009 03/05/2021 Inguinal pain 05/31/2009 03/05/2021 documented as of this encounter (statuses as of 08/17/2023) [facility] History of Past illness Narrative* Problem Noted Date Diagnosed Date Resolved Date Anal or rectal pain 08/10/2016 03/05/20 21 Sebaceous cyst 07/19/2015 03/05/2021 Skin lesion of face 07/19/2015 03/05/20 21 Cough 02/14/2010 03/05/2021 Routine gynecological examination 01/03/2010 03/05/2021 Overview: [facility], [facility] [place] Internal hemorrhoids without mention of complication 12/30/2009 03/05/2021 Blood in stool 06/12/2009 03/05/2021 Inguinal pain 05/31/2009 03/05/2021 documented as of this encounter (statuses as of 08/20/2023) [facility] History of Past illness Narrative* Problem Noted Date Diagnosed Date Resolved Date Anal or rectal pain 08/10/2016 03/05/20 21 Sebaceous cyst 07/19/2015 03/05/2021 Skin lesion of face 07/19/2015 03/05/20 21 Cough 02/14/2010 03/05/2021 Routine gynecological examination 01/03/2010 03/05/2021 Overview: [facility], [facility] [place] Internal hemorrhoids without mention of complication 12/30/2009 03/05/2021 Blood in stool 06/12/2009 03/05/2021 Inguinal pain 05/31/2009 03/05/2021 documented as of this encounter (statuses as of 08/21/2023) [facility] History of Past illness Narrative* Problem Noted Date Diagnosed Date Resolved Date Anal or rectal pain 08/10/2016 03/05/20 21 Sebaceous cyst 07/19/2015 03/05/2021 Skin lesion of face 07/19/2015 03/05/20 21 Cough 02/14/2010 03/05/2021 Routine gynecological examination 01/03/2010 03/05/2021 Overview: [facility], [facility] [place] Internal hemorrhoids without mention of complication 12/30/2009 03/05/2021 Blood in stool 06/12/2009 03/05/2021 Inguinal pain 05/31/2009 03/05/2021 documented as of this encounter (statuses as of 08/25/2023) [facility] History of Past illness Narrative* Problem Noted Date Diagnosed Date Resolved Date Anal or rectal pain 08/10/2016 03/05/20 21 Sebaceous cyst 07/19/2015 03/05/2021 Skin lesion of face 07/19/2015 03/05/20 21 Cough 02/14/2010 03/05/2021 Routine gynecological examination 01/03/2010 03/05/2021 Overview: [facility], [facility] [place] Internal hemorrhoids without mention of complication 12/30/2009 03/05/2021 Blood in stool 06/12/2009 03/05/2021 Inguinal pain 05/31/2009 03/05/2021 documented as of this encounter (statuses as of 08/31/2023) [facility] History of Past illness Narrative* Problem Noted Date Diagnosed Date Resolved Date Anal or rectal pain 08/10/2016 03/05/20 21 Sebaceous cyst 07/19/2015 03/05/2021 Skin lesion of face 07/19/2015 03/05/20 21 Cough 02/14/2010 03/05/2021 Routine gynecological examination 01/03/2010 03/05/2021 Overview: [facility], [facility] [place] Internal hemorrhoids without mention of complication 12/30/2009 03/05/2021 Blood in stool 06/12/2009 03/05/2021 Inguinal pain 05/31/2009 03/05/2021 documented as of this encounter (statuses as of 12/17/2023) [facility] History of Past illness Narrative* Problem Noted Date Diagnosed Date Resolved Date Anal or rectal pain 08/10/2016 03/05/20 21 Sebaceous cyst 07/19/2015 03/05/2021 Skin lesion of face 07/19/2015 03/05/20 21 Cough 02/14/2010 03/05/2021 Routine gynecological examination 01/03/2010 03/05/2021 Overview: [facility], [facility] [place] Internal hemorrhoids without mention of complication 12/30/2009 03/05/2021 Blood in stool 06/12/2009 03/05/2021 Inguinal pain 05/31/2009 03/05/2021 documented as of this encounter (statuses as of 12/30/2023) [facility] Diagnosis Onset Date Resolution Status Palpitations acute Paroxysmal atrial fibrillation acute Atherosclerotic heart diseas e of hamilton coronary artery without angina pectoris chronic Mixed hyperlipidemia chronic Presence of stent in coronary artery May, [facility] Work Phone: Evaluation note* Diagnosis Reflux esophagitis [facility] encounter [facility] Diagnosis Reflux esophagitis [facility]* Diagnosis Medicare annual wellness visit, subsequent- Primary Routine general medical examination at a health care facility Gastroesophageal reflux disease, unspecified whether esophagitis present Insomnia, unspecified type 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 Mixed hyperlipidemia Paroxysmal A-fib (HCC) Atrial fibrillation Current use of fci anticoagulation Long-term (current) use of anticoagulants Prediabetes Other abnormal glucose Vitamin D deficiency Unspecified vitamin D deficiency Tobacco abuse Tobacco use disorder Need for influenza vaccination Need for prophylactic vaccination and inoculation against influenza Current mild episode of major depressive disorder, unspecified whether recurrent (HCC) [facility] Anemia, unspecified type- Primary [facility] Diagnosis Encounter for routine gynecologic examination in Medicare patient- Primary Encounter for screening mammogram for breast cancer [facility] Screening mammogram for breast cancer [facility] Diagnosis Anemia, unspecified type- Primary Positive fecal occult blood test Nonspecific abnormal finding in stool contents [facility] Diagnosis Need for vaccination- Primary Need for prophylactic vaccination and inoculation against unspecified single disease [facility] Diagnosis Situational anxiety Other anxiety states [facility] Diagnosis Iron deficiency anemia, unspecified iron deficiency anemia type- Primary Positive fecal occult blood test Nonspecific abnormal finding in stool contents [facility] Diagnosis Iron deficiency anemia, unspecified iron deficiency anemia type Angiodysplasia of colon without bleeding Angiodysplasia of intestine (without mention of hemorrhage) documented in this encounter [facility]* Diagnosis Bloating- Primary Flatulence, eructation, and gas pain Weight gain Abnormal weight gain Excessive gas Flatulence, eructation, and gas pain Insomnia, unspecified type Tobacco abuse Tobacco use disorder Right upper quadrant abdominal tenderness without rebound tenderness documented in this encounter [facility] noteNo assessment information availableWAvita [facility] Work Phone: Evaluation note* Diagnosis Onset Date Resolution Status Anemia acute GI bleed acute [facility] Work Phone: Evaluation note* Diagnosis Encounter for therapeutic drug monitoring- Primary Anemia, unspecified type Gastrointestinal hemorrhage, unspecified gastrointestinal hemorrhage type documented in this encounter [facility] note* Diagnosis Anemia, unspecified type- Primary Gastrointestinal hemorrhage, unspecified gastrointestinal hemorrhage type 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 Encounter for long-term current use of medication Bilateral leg edema Edema Hypokalemia Hypopotassemia Major depressive disorder, remission status unspecified, unspecified whether recurrent Paroxysmal A-fib (HCC) Atrial fibrillation [facility]* Diagnosis Yeast infection of the skin- Primary Candidiasis of skin and nails Rash Rash and other nonspecific skin eruption documented in this encounter [facility]* Diagnosis Rash and nonspecific skin eruption- Primary Rash and other nonspecific skin eruption Yeast dermatitis Candidiasis of skin and nails documented in this encounter [facility]* Diagnosis Gastroesophageal reflux disease, unspecified whether esophagitis present documented in this encounter [facility] note* Diagnosis Hypoxia- Primary Hypoxemia Anemia, unspecified type documented in this encounter [facility] note* Diagnosis Onset Date Resolution Status ABLA (acute blood loss anemia) resolved Anemia resolved GI bleed resolved Paroxysmal atrial fibrillation acute Mixed hyperlipidemia chronic [facility] Work Phone: Evaluation note* Diagnosis Insomnia, unspecified type documented in this encounter [facility]* Diagnosis Anemia, unspecified type documented in this encounter [facility]* Diagnosis Right upper quadrant abdominal tenderness without rebound tenderness documented in this encounter [facility]* Diagnosis Screening for colon cancer- Primary Special screening for malignant neoplasms, colon Iron deficiency anemia, unspecified iron deficiency anemia type Positive fecal occult blood test Nonspecific abnormal finding in stool contents documented in this encounter [facility] note* Diagnosis Gastroesophageal reflux disease, unspecified whether esophagitis present documented in this encounter [facility] note* Diagnosis Medication management Encounter for long-term (current) use of other medications Hyperlipidemia Other and unspecified hyperlipidemia documented in this encounter [facility] note* Diagnosis Encounter for screening mammogram for breast cancer documented in this encounter [facility] note* Diagnosis Mixed hyperlipidemia- Primary Anemia, unspecified type Insomnia, unspecified type Spondylolisthesis, unspecified spinal region Moderate episode of recurrent major depressive disorder (HCC) Anxiety Anxiety state, unspecified Encounter for immunization Need for other specified prophylactic vaccination against single bacterial disease Prediabetes Other abnormal glucose documented in this encounter [facility] note* Diagnosis Iron deficiency- Primary Iron deficiency anemia, unspecified Gastroesophageal reflux disease without esophagitis Esophageal reflux 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 Mixed hyperlipidemia Anxiety with depression documented in this encounter [facility] note* Diagnosis Anemia, unspecified type documented in this encounter [facility] note* Diagnosis Annual physical exam- Primary Routine general medical examination at a health care facility Depression Depressive disorder, not elsewhere classified Hyperlipidemia Other and unspecified hyperlipidemia INSOMNIA NEC Insomnia, unspecified Tobacco abuse Tobacco use disorder Esophageal reflux Arthritis of hand Unspecified arthropathy, hand Establishing care with new doctor, encounter for Other reasons for seeking consultation Arthritis of hand- Primary Unspecified arthropathy, hand Depressive disorder Depressive disorder, not elsewhere classified Depression Depressive disorder, not elsewhere classified Gastroesophageal reflux disease, esophagitis presence not specified Hyperlipidemia, unspecified hyperlipidemia Need for prophylactic vaccination against Streptococcus pneumoniae (pneumococcus) Need for prophylactic vaccination against streptococcus pneumoniae (pneumococcus) Tobacco abuse Tobacco use disorder Anxiety Anxiety state, unspecified Arthritis of hand- Primary Unspecified arthropathy, hand Restless legs syndrome (RLS) Insomnia, unspecified Mixed hyperlipidemia Anxiety and depression Dysthymic disorder Anxiety Anxiety state, unspecified Arthritis of hand- Primary Unspecified arthropathy, hand Mixed hyperlipidemia Gastroesophageal reflux disease, esophagitis presence not specified Insomnia, unspecified type Recurrent major depressive disorder, in partial remission (HCC) Tobacco abuse Tobacco use disorder Left groin pain Abdominal pain, left lower quadrant Palpable mass of pelvis documented in this encounter [facility] note* Diagnosis Annual physical exam- Primary Routine general medical examination at a health care facility Depression Depressive disorder, not elsewhere classified Hyperlipidemia Other and unspecified hyperlipidemia INSOMNIA NEC Insomnia, unspecified Tobacco abuse Tobacco use disorder Esophageal reflux Arthritis of hand Unspecified arthropathy, hand Establishing care with new doctor, encounter for Other reasons for seeking consultation Arthritis of hand- Primary Unspecified arthropathy, hand Depressive disorder Depressive disorder, not elsewhere classified Depression Depressive disorder, not elsewhere classified Gastroesophageal reflux disease, esophagitis presence not specified Hyperlipidemia, unspecified hyperlipidemia Need for prophylactic vaccination against Streptococcus pneumoniae (pneumococcus) Need for prophylactic vaccination against streptococcus pneumoniae (pneumococcus) Tobacco abuse Tobacco use disorder Anxiety Anxiety state, unspecified Arthritis of hand- Primary Unspecified arthropathy, hand Restless legs syndrome (RLS) Insomnia, unspecified Mixed hyperlipidemia Anxiety and depression Dysthymic disorder Anxiety Anxiety state, unspecified Arthritis of hand- Primary Unspecified arthropathy, hand Mixed hyperlipidemia Gastroesophageal reflux disease, esophagitis presence not specified Insomnia, unspecified type Recurrent major depressive disorder, in partial remission (HCC) Tobacco abuse Tobacco use disorder Medicare annual wellness visit, subsequent- Primary Routine general medical examination at a health care facility Moderate episode of recurrent major depressive disorder (HCC) Anxiety Anxiety state, unspecified Insomnia, unspecified type 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 Paroxysmal A-fib (HCC) Atrial fibrillation Prediabetes Other abnormal glucose Mixed hyperlipidemia Encounter for screening for lung cancer Tobacco abuse Tobacco use disorder Encounter for immunization Need for other specified prophylactic vaccination against single bacterial disease Need for influenza vaccination Need for prophylactic vaccination and inoculation against influenza [facility] Diagnosis Annual physical exam- Primary Routine general medical examination at a health care facility Depression Depressive disorder, not elsewhere classified Hyperlipidemia Other and unspecified hyperlipidemia INSOMNIA NEC Insomnia, unspecified Tobacco abuse Tobacco use disorder Esophageal reflux Arthritis of hand Unspecified arthropathy, hand Establishing care with new doctor, encounter for Other reasons for seeking consultation Arthritis of hand- Primary Unspecified arthropathy, hand Depressive disorder Depressive disorder, not elsewhere classified Depression Depressive disorder, not elsewhere classified Gastroesophageal reflux disease, esophagitis presence not specified Hyperlipidemia, unspecified hyperlipidemia Need for prophylactic vaccination against Streptococcus pneumoniae (pneumococcus) Need for prophylactic vaccination against streptococcus pneumoniae (pneumococcus) Tobacco abuse Tobacco use disorder Anxiety Anxiety state, unspecified Arthritis of hand- Primary Unspecified arthropathy, hand Restless legs syndrome (RLS) Insomnia, unspecified Mixed hyperlipidemia Anxiety and depression Dysthymic disorder Anxiety Anxiety state, unspecified Arthritis of hand- Primary Unspecified arthropathy, hand Mixed hyperlipidemia Gastroesophageal reflux disease, esophagitis presence not specified Insomnia, unspecified type Recurrent major depressive disorder, in partial remission (HCC) Tobacco abuse Tobacco use disorder Encounter for gynecological examination (general) (routine) without abnormal findings- Primary Encounter for screening mammogram for breast cancer Dense breast tissue Encounter for screening for osteoporosis Special screening for osteoporosis documented in this encounter [facility] note* Diagnosis Annual physical exam- Primary Routine general medical examination at a health care facility Depression Depressive disorder, not elsewhere classified Hyperlipidemia Other and unspecified hyperlipidemia INSOMNIA NEC Insomnia, unspecified Tobacco abuse Tobacco use disorder Esophageal reflux Arthritis of hand Unspecified arthropathy, hand Establishing care with new doctor, encounter for Other reasons for seeking consultation Arthritis of hand- Primary Unspecified arthropathy, hand Depressive disorder Depressive disorder, not elsewhere classified Depression Depressive disorder, not elsewhere classified Gastroesophageal reflux disease, esophagitis presence not specified Hyperlipidemia, unspecified hyperlipidemia Need for prophylactic vaccination against Streptococcus pneumoniae (pneumococcus) Need for prophylactic vaccination against streptococcus pneumoniae (pneumococcus) Tobacco abuse Tobacco use disorder Anxiety Anxiety state, unspecified Arthritis of hand- Primary Unspecified arthropathy, hand Restless legs syndrome (RLS) Insomnia, unspecified Mixed hyperlipidemia Anxiety and depression Dysthymic disorder Anxiety Anxiety state, unspecified Arthritis of hand- Primary Unspecified arthropathy, hand Mixed hyperlipidemia Gastroesophageal reflux disease, esophagitis presence not specified Insomnia, unspecified type Recurrent major depressive disorder, in partial remission (HCC) Tobacco abuse Tobacco use disorder Encounter for screening mammogram for malignant neoplasm of breast Other screening mammogram documented in this encounter [facility] note* Diagnosis Annual physical exam- Primary Routine general medical examination at a health care facility Depression Depressive disorder, not elsewhere classified Hyperlipidemia Other and unspecified hyperlipidemia INSOMNIA NEC Insomnia, unspecified Tobacco abuse Tobacco use disorder Esophageal reflux Arthritis of hand Unspecified arthropathy, hand Establishing care with new doctor, encounter for Other reasons for seeking consultation Arthritis of hand- Primary Unspecified arthropathy, hand Depressive disorder Depressive disorder, not elsewhere classified Depression Depressive disorder, not elsewhere classified Gastroesophageal reflux disease, esophagitis presence not specified Hyperlipidemia, unspecified hyperlipidemia Need for prophylactic vaccination against Streptococcus pneumoniae (pneumococcus) Need for prophylactic vaccination against streptococcus pneumoniae (pneumococcus) Tobacco abuse Tobacco use disorder Anxiety Anxiety state, unspecified Arthritis of hand- Primary Unspecified arthropathy, hand Restless legs syndrome (RLS) Insomnia, unspecified Mixed hyperlipidemia Anxiety and depression Dysthymic disorder Anxiety Anxiety state, unspecified Arthritis of hand- Primary Unspecified arthropathy, hand Mixed hyperlipidemia Gastroesophageal reflux disease, esophagitis presence not specified Insomnia, unspecified type Recurrent major depressive disorder, in partial remission (HCC) Tobacco abuse Tobacco use disorder Encounter for screening for lung cancer- Primary Tobacco abuse Tobacco use disorder documented in this encounter [facility] note* Diagnosis Annual physical exam- Primary Routine general medical examination at a health care facility Depression Depressive disorder, not elsewhere classified Hyperlipidemia Other and unspecified hyperlipidemia INSOMNIA NEC Insomnia, unspecified Tobacco abuse Tobacco use disorder Esophageal reflux Arthritis of hand Unspecified arthropathy, hand Establishing care with new doctor, encounter for Other reasons for seeking consultation Arthritis of hand- Primary Unspecified arthropathy, hand Depressive disorder Depressive disorder, not elsewhere classified Depression Depressive disorder, not elsewhere classified Gastroesophageal reflux disease, esophagitis presence not specified Hyperlipidemia, unspecified hyperlipidemia Need for prophylactic vaccination against Streptococcus pneumoniae (pneumococcus) Need for prophylactic vaccination against streptococcus pneumoniae (pneumococcus) Tobacco abuse Tobacco use disorder Anxiety Anxiety state, unspecified Arthritis of hand- Primary Unspecified arthropathy, hand Restless legs syndrome (RLS) Insomnia, unspecified Mixed hyperlipidemia Anxiety and depression Dysthymic disorder Anxiety Anxiety state, unspecified Arthritis of hand- Primary Unspecified arthropathy, hand Mixed hyperlipidemia Gastroesophageal reflux disease, esophagitis presence not specified Insomnia, unspecified type Recurrent major depressive disorder, in partial remission (HCC) Tobacco abuse Tobacco use disorder Encounter for screening for lung cancer Tobacco abuse Tobacco use disorder documented in this encounter [facility] note* Diagnosis Annual physical exam- Primary Routine general medical examination at a health care facility Depression Depressive disorder, not elsewhere classified Hyperlipidemia Other and unspecified hyperlipidemia INSOMNIA NEC Insomnia, unspecified Tobacco abuse Tobacco use disorder Esophageal reflux Arthritis of hand Unspecified arthropathy, hand Establishing care with new doctor, encounter for Other reasons for seeking consultation Arthritis of hand- Primary Unspecified arthropathy, hand Depressive disorder Depressive disorder, not elsewhere classified Depression Depressive disorder, not elsewhere classified Gastroesophageal reflux disease, esophagitis presence not specified Hyperlipidemia, unspecified hyperlipidemia Need for prophylactic vaccination against Streptococcus pneumoniae (pneumococcus) Need for prophylactic vaccination against streptococcus pneumoniae (pneumococcus) Tobacco abuse Tobacco use disorder Anxiety Anxiety state, unspecified Arthritis of hand- Primary Unspecified arthropathy, hand Restless legs syndrome (RLS) Insomnia, unspecified Mixed hyperlipidemia Anxiety and depression Dysthymic disorder Anxiety Anxiety state, unspecified Arthritis of hand- Primary Unspecified arthropathy, hand Mixed hyperlipidemia Gastroesophageal reflux disease, esophagitis presence not specified Insomnia, unspecified type Recurrent major depressive disorder, in partial remission (HCC) Tobacco abuse Tobacco use disorder Encounter for screening for lung cancer- Primary Tobacco abuse Tobacco use disorder documented in this encounter [facility] note* Diagnosis Annual physical exam- Primary Routine general medical examination at a health care facility Depression Depressive disorder, not elsewhere classified Hyperlipidemia Other and unspecified hyperlipidemia INSOMNIA NEC Insomnia, unspecified Tobacco abuse Tobacco use disorder Esophageal reflux Arthritis of hand Unspecified arthropathy, hand Establishing care with new doctor, encounter for Other reasons for seeking consultation Arthritis of hand- Primary Unspecified arthropathy, hand Depressive disorder Depressive disorder, not elsewhere classified Depression Depressive disorder, not elsewhere classified Gastroesophageal reflux disease, esophagitis presence not specified Hyperlipidemia, unspecified hyperlipidemia Need for prophylactic vaccination against Streptococcus pneumoniae (pneumococcus) Need for prophylactic vaccination against streptococcus pneumoniae (pneumococcus) Tobacco abuse Tobacco use disorder Anxiety Anxiety state, unspecified Arthritis of hand- Primary Unspecified arthropathy, hand Restless legs syndrome (RLS) Insomnia, unspecified Mixed hyperlipidemia Anxiety and depression Dysthymic disorder Anxiety Anxiety state, unspecified Arthritis of hand- Primary Unspecified arthropathy, hand Mixed hyperlipidemia Gastroesophageal reflux disease, esophagitis presence not specified Insomnia, unspecified type Recurrent major depressive disorder, in partial remission (HCC) Tobacco abuse Tobacco use disorder Encounter for screening for osteoporosis Special screening for osteoporosis documented in this encounter [facility] note* Diagnosis Annual physical exam- Primary Routine general medical examination at a health care facility Depression Depressive disorder, not elsewhere classified Hyperlipidemia Other and unspecified hyperlipidemia INSOMNIA NEC Insomnia, unspecified Tobacco abuse Tobacco use disorder Esophageal reflux Arthritis of hand Unspecified arthropathy, hand Establishing care with new doctor, encounter for Other reasons for seeking consultation Arthritis of hand- Primary Unspecified arthropathy, hand Depressive disorder Depressive disorder, not elsewhere classified Depression Depressive disorder, not elsewhere classified Gastroesophageal reflux disease, esophagitis presence not specified Hyperlipidemia, unspecified hyperlipidemia Need for prophylactic vaccination against Streptococcus pneumoniae (pneumococcus) Need for prophylactic vaccination against streptococcus pneumoniae (pneumococcus) Tobacco abuse Tobacco use disorder Anxiety Anxiety state, unspecified Arthritis of hand- Primary Unspecified arthropathy, hand Restless legs syndrome (RLS) Insomnia, unspecified Mixed hyperlipidemia Anxiety and depression Dysthymic disorder Anxiety Anxiety state, unspecified Arthritis of hand- Primary Unspecified arthropathy, hand Mixed hyperlipidemia Gastroesophageal reflux disease, esophagitis presence not specified Insomnia, unspecified type Recurrent major depressive disorder, in partial remission Tobacco abuse Tobacco use disorder Paroxysmal A-fib (HCC)- Primary Atrial fibrillation Mixed hyperlipidemia 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 Wheezing Tobacco use Tobacco use disorder Prediabetes Other abnormal glucose Restless legs syndrome (RLS) Insomnia, unspecified type Anxiety with depression Moderate episode of recurrent major depressive disorder (HCC) Iron deficiency Iron deficiency anemia, unspecified Other chronic pain Gastro-esophageal reflux disease without esophagitis Esophageal reflux documented in this encounter [facility] note* Diagnosis Annual physical exam- Primary Routine general medical examination at a health care facility Depression Depressive disorder, not elsewhere classified Hyperlipidemia Other and unspecified hyperlipidemia INSOMNIA NEC Insomnia, unspecified Tobacco abuse Tobacco use disorder Esophageal reflux Arthritis of hand Unspecified arthropathy, hand Establishing care with new doctor, encounter for Other reasons for seeking consultation Arthritis of hand- Primary Unspecified arthropathy, hand Depressive disorder Depressive disorder, not elsewhere classified Depression Depressive disorder, not elsewhere classified Gastroesophageal reflux disease, esophagitis presence not specified Hyperlipidemia, unspecified hyperlipidemia Need for prophylactic vaccination against Streptococcus pneumoniae (pneumococcus) Need for prophylactic vaccination against streptococcus pneumoniae (pneumococcus) Tobacco abuse Tobacco use disorder Anxiety Anxiety state, unspecified Arthritis of hand- Primary Unspecified arthropathy, hand Restless legs syndrome (RLS) Insomnia, unspecified Mixed hyperlipidemia Anxiety and depression Dysthymic disorder Anxiety Anxiety state, unspecified Arthritis of hand- Primary Unspecified arthropathy, hand Mixed hyperlipidemia Gastroesophageal reflux disease, esophagitis presence not specified Insomnia, unspecified type Recurrent major depressive disorder, in partial remission Tobacco abuse Tobacco use disorder Chronic obstructive pulmonary disease, unspecified COPD type (HCC)- Primary documented in this encounter [facility] note* Diagnosis Annual physical exam- Primary Routine general medical examination at a health care facility Depression Depressive disorder, not elsewhere classified Hyperlipidemia Other and unspecified hyperlipidemia INSOMNIA NEC Insomnia, unspecified Tobacco abuse Tobacco use disorder Esophageal reflux Arthritis of hand Unspecified arthropathy, hand Establishing care with new doctor, encounter for Other reasons for seeking consultation Arthritis of hand- Primary Unspecified arthropathy, hand Depressive disorder Depressive disorder, not elsewhere classified Depression Depressive disorder, not elsewhere classified Gastroesophageal reflux disease, esophagitis presence not specified Hyperlipidemia, unspecified hyperlipidemia Need for prophylactic vaccination against Streptococcus pneumoniae (pneumococcus) Need for prophylactic vaccination against streptococcus pneumoniae (pneumococcus) Tobacco abuse Tobacco use disorder Anxiety Anxiety state, unspecified Arthritis of hand- Primary Unspecified arthropathy, hand Restless legs syndrome (RLS) Insomnia, unspecified Mixed hyperlipidemia Anxiety and depression Dysthymic disorder Anxiety Anxiety state, unspecified Arthritis of hand- Primary Unspecified arthropathy, hand Mixed hyperlipidemia Gastroesophageal reflux disease, esophagitis presence not specified Insomnia, unspecified type Recurrent major depressive disorder, in partial remission Tobacco abuse Tobacco use disorder Chronic obstructive pulmonary disease, unspecified COPD type (HCC) documented in this encounter [facility] note* Diagnosis Annual physical exam- Primary Routine general medical examination at a health care facility Depression Depressive disorder, not elsewhere classified Hyperlipidemia Other and unspecified hyperlipidemia INSOMNIA NEC Insomnia, unspecified Tobacco abuse Tobacco use disorder Esophageal reflux Arthritis of hand Unspecified arthropathy, hand Establishing care with new doctor, encounter for Other reasons for seeking consultation Arthritis of hand- Primary Unspecified arthropathy, hand Depressive disorder Depressive disorder, not elsewhere classified Depression Depressive disorder, not elsewhere classified Gastroesophageal reflux disease, esophagitis presence not specified Hyperlipidemia, unspecified hyperlipidemia Need for prophylactic vaccination against Streptococcus pneumoniae (pneumococcus) Need for prophylactic vaccination against streptococcus pneumoniae (pneumococcus) Tobacco abuse Tobacco use disorder Anxiety Anxiety state, unspecified Arthritis of hand- Primary Unspecified arthropathy, hand Restless legs syndrome (RLS) Insomnia, unspecified Mixed hyperlipidemia Anxiety and depression Dysthymic disorder Anxiety Anxiety state, unspecified Arthritis of hand- Primary Unspecified arthropathy, hand Mixed hyperlipidemia Gastroesophageal reflux disease, esophagitis presence not specified Insomnia, unspecified type Recurrent major depressive disorder, in partial remission Tobacco abuse Tobacco use disorder Chronic obstructive pulmonary disease, unspecified COPD type (HCC) documented in this encounter [facility] note* Diagnosis Annual physical exam- Primary Routine general medical examination at a health care facility Depression Depressive disorder, not elsewhere classified Hyperlipidemia Other and unspecified hyperlipidemia INSOMNIA NEC Insomnia, unspecified Tobacco abuse Tobacco use disorder Esophageal reflux Arthritis of hand Unspecified arthropathy, hand Establishing care with new doctor, encounter for Other reasons for seeking consultation Arthritis of hand- Primary Unspecified arthropathy, hand Depressive disorder Depressive disorder, not elsewhere classified Depression Depressive disorder, not elsewhere classified Gastroesophageal reflux disease, esophagitis presence not specified Hyperlipidemia, unspecified hyperlipidemia Need for prophylactic vaccination against Streptococcus pneumoniae (pneumococcus) Need for prophylactic vaccination against streptococcus pneumoniae (pneumococcus) Tobacco abuse Tobacco use disorder Anxiety Anxiety state, unspecified Arthritis of hand- Primary Unspecified arthropathy, hand Restless legs syndrome (RLS) Insomnia, unspecified Mixed hyperlipidemia Anxiety and depression Dysthymic disorder Anxiety Anxiety state, unspecified Arthritis of hand- Primary Unspecified arthropathy, hand Mixed hyperlipidemia Gastroesophageal reflux disease, esophagitis presence not specified Insomnia, unspecified type Recurrent major depressive disorder, in partial remission Tobacco abuse Tobacco use disorder Chronic obstructive pulmonary disease, unspecified COPD type (HCC) [facility] Diagnosis Annual physical exam- Primary Routine general medical examination at a health care facility Depression Depressive disorder, not elsewhere classified Hyperlipidemia Other and unspecified hyperlipidemia INSOMNIA NEC Insomnia, unspecified Tobacco abuse Tobacco use disorder Esophageal reflux Arthritis of hand Unspecified arthropathy, hand Establishing care with new doctor, encounter for Other reasons for seeking consultation Arthritis of hand- Primary Unspecified arthropathy, hand Depressive disorder Depressive disorder, not elsewhere classified Depression Depressive disorder, not elsewhere classified Gastroesophageal reflux disease, esophagitis presence not specified Hyperlipidemia, unspecified hyperlipidemia Need for prophylactic vaccination against Streptococcus pneumoniae (pneumococcus) Need for prophylactic vaccination against streptococcus pneumoniae (pneumococcus) Tobacco abuse Tobacco use disorder Anxiety Anxiety state, unspecified Arthritis of hand- Primary Unspecified arthropathy, hand Restless legs syndrome (RLS) Insomnia, unspecified Mixed hyperlipidemia Anxiety and depression Dysthymic disorder Anxiety Anxiety state, unspecified Arthritis of hand- Primary Unspecified arthropathy, hand Mixed hyperlipidemia Gastroesophageal reflux disease, esophagitis presence not specified Insomnia, unspecified type Recurrent major depressive disorder, in partial remission Tobacco abuse Tobacco use disorder COPD, moderate (HCC)- Primary Chronic airway obstruction, not elsewhere classified Cigarette smoker Tobacco use disorder Centrilobular emphysema (HCC) Other emphysema documented in this encounter [facility] for referral (narrative)* Diagnostic Procedure Only (Routine) - Pending Review Specialty Diagnoses / Procedures Referred By Salvatore cortez Referred To Contact [facility] Diagnoses Encounter for screening mammogram for breast cancer Procedures HILARY SCREENING SCREENING MAMMOGRAPHY BI 2-VIEW BREAST INC Talia Harris APRN.CNP [address] [place] [address] [facility] [address] [place] [id number] Referral ID Status Reason Start Date Expiration Date Visits Requested Visits Authorized [id number] Pending Review Auto-Generat ed Referral 2 08/23/2023 1 1 [facility] for referral (narrative)* Diagnostic Procedure Only (Routine) - Closed Specialty Diagnoses / Procedures Referred By Salvatore cortez Referred To Contact [facility] Diagnoses Screening mammogram for breast cancer Procedures HILARY SCREENING SCREENING MAMMOGRAPHY BI 2-VIEW BREAST INC CAD Natalie Cervantes APRN.CNP [address] [place] [address] [facility] [address] [place] [address] Referral ID Status Reason Start Date Expiration Date V isits Requested Visits Authorized [id number] Closed Auto-Generate d Referral 09/22/2021 10/22/2022 1 1 [facility] for referral (narrative)* Outpatient Procedure (Routine) - Authorized Specialty Diagnoses / Procedures Referred By Contac t Referred To Contact [facility] Diagnoses Iron deficiency anemia, unspecified iron deficiency anemia type Positive fecal occult blood test Procedures EGD DIAGNOSTIC ESOPHAGOGASTRODUODENOSC OPY TRANSORAL DIAGNOSTIC Anisha Lindsey PA-C [address] [place] [address] [facility] [facility] [place] [address] Referral ID Status Reason Start Date Expiration Date Visits Requested Visits Authorized [id number] Authorized Auto-Generat ed Referral 2 08/05/2023 1 1 * Outpatient Procedure (Routine) - Authorized Specialty Diagnoses / Procedures Referred By Contac t Referred To Contact [facility] [place] Diagnoses Iron deficiency anemia, unspecified iron deficiency anemia type Positive fecal occult blood test Procedures COLONOSCOPY DIAGNOSTIC COLONOSCOPY FLX DX W/COLLJ SPEC WHEN PFRMD Anisha Lindsey PA-C [address] [place] [address] [facility] [address] [place] [address] Referral ID Status Reason Start Date Expiration Date Visits Requested Visits Authorized [id number] Authorized Auto-Generat ed Referral 2 08/05/2023 2 2 [facility] for referral (narrative)* Diagnostic Procedure Only (Routine) - Authorized Specialty Diagnoses / Procedures Referred By Contac t Referred To Contact [facility] Diagnoses Right upper quadrant abdominal tenderness without rebound tenderness Procedures US ABD RIGHT UPPER QUADRANT US ABDOMINAL REAL TIME W/IMAGE LIMITED Brook Horner MD [address] [place] [address] [facility] Referral ID Status Reason Start Date Expiration Date Visits Requested Visits Authorized [id number] Authorized Auto-Generat ed Referral 01/04/2023 02/03/2024 1 1 [facility] for referral (narrative)* Diagnostic Procedure Only (Routine) - Closed Specialty Diagnoses / Procedures Referred By Contac t Referred To Contact [facility] IMAGING Diagnoses Right upper quadrant abdominal tenderness without rebound tenderness Procedures US ABD RIGHT UPPER QUADRANT US ABDOMINAL REAL TIME W/IMAGE LIMITED Brook Horner MD [address] [place] [address] [facility] Referral ID Status Reason Start Date Expiration Date V isits Requested Visits Authorized [id number] Closed Auto-Generate d Referral 01/04/2023 02/03/2024 1 1 [facility] for referral (narrative)* Outpatient Procedure (Routine) - Closed Specialty Diagnoses / Procedures Referred By Contac t Referred To Contact [facility] Diagnoses Iron deficiency anemia, unspecified iron deficiency anemia type Positive fecal occult blood test Procedures EGD DIAGNOSTIC ESOPHAGOGASTRODUODENOSC OPY TRANSORAL DIAGNOSTIC Anisha Lindsey PA-C [address] [place] [address] [facility] [address] [place] [address] Referral ID Status Reason Start Date Expiration Date V isits Requested Visits Authorized [id number] Closed Auto-Generate d Referral 08/05/2022 08/05/2023 1 1 * Outpatient Procedure (Routine) - Closed Specialty Diagnoses / Procedures Referred By Contac t Referred To Contact [facility] Diagnoses Iron deficiency anemia, unspecified iron deficiency anemia type Positive fecal occult blood test Procedures COLONOSCOPY DIAGNOSTIC COLONOSCOPY FLX DX W/COLLJ SPEC WHEN PFRMD Anisha Lindsey PA-C [address] [place] [address] [facility] [address] [place] [address] Referral ID Status Reason Start Date Expiration Date V isits Requested Visits Authorized [id number] Closed Auto-Generate d Referral 08/05/2022 08/05/2023 2 2 [facility] for referral (narrative)* Diagnostic Procedure Only (Routine) - Closed Specialty Diagnoses / Procedures Referred By Contac t Referred To Contact [facility] Diagnoses Left groin pain Palpable mass of pelvis Procedures US PELVIS LTD US PELVIC NONOBSTETRIC IMAGE DCMTN LIMITED/F/U Kate Cervantes APRN.PUBLIC SERVICE ADMINISTRATOR [address] [place] [address] [place] [address] Referral ID Status Reason Start Date Expiration Date V isits Requested Visits Authorized [id number] Closed Auto-Generate d Referral 03/04/2023 04/02/2024 1 1 [facility] for referral (narrative)* Diagnostic Procedure Only (Routine) - Authorized Specialty Diagnoses / Procedures Referred By Contac t Referred To Contact XR IMAGING Diagnoses Encounter for screening for osteoporosis Procedures DXA-AXIAL SKELETON DXA BONE DENSITY STUDY 1/> SITES AXIAL Kelley Ramon APRN.CNP [address] [place] [address] [place] [address] Referral ID Status Reason Start Date Expiration Date Visits Requested Visits Authorized [id number] Authorized Auto-Generat ed Referral 09/22/2025 1 1 * Diagnostic Procedure Only (Routine) - Authorized Specialty Diagnoses / Procedures Referred By Contac t Referred To Contact [facility] Diagnoses Encounter for screening mammogram for breast cancer Dense breast tissue Procedures HILARY SCREENING W OLAYINKA SCREENING DIGITAL BREAST TOMOSYNTHESIS BI SCREENING MAMMOGRAPHY BI 2-VIEW BREAST INC CAD Kelley Barrera APRN.PUBLIC SERVICE ADMINISTRATOR [address] [place] [address] [facility] [address] [place] [address] Referral ID Status Reason Start Date Expiration Date Visits Requested Visits Authorized [id number] Authorized Auto-Generat ed Referral 09/22/2025 1 1 [facility] for referral (narrative)* Diagnostic Procedure Only (Routine) - Closed Specialty Diagnoses / Procedures Referred By Luisac t Referred To Contact XR IMAGING Diagnoses Encounter for screening for osteoporosis Procedures DXA-AXIAL SKELETON DXA BONE DENSITY STUDY / SITES AXIAL SKEL Kelley Barrera APRN.CNP [address] [place] [id number] [id number] Referral ID Status Reason Start Date Expiration Date V isits Requested Visits Authorized [id number] Closed Auto-Generate d Referral 08/23/2024 09/22/2025 1 1 [facility] for referral (narrative)No reason for referral information availableWAvita [facility] Work Phone: Reason for visit Narrative* Diagnostic Procedure Only (Routine) - Closed Specialty Diagnoses / Procedures Referred By Contac t Referred To Contact [facility] Diagnoses Screening mammogram for breast cancer Procedures HILARY SCREENING SCREENING MAMMOGRAPHY BI 2-VIEW BREAST INC CAD Natalie Cervantes APRN.PUBLIC SERVICE ADMINISTRATOR [address] [place] [address] [facility] [address] [place] [address] Referral ID Status Reason Start Date Expiration Date V isits Requested Visits Authorized [id number] Closed Auto-Generate d Referral 09/22/2021 10/22/2022 1 1 [facility] for visit Narrative* Outpatient Procedure (Routine) - Closed Specialty Diagnoses / Procedures Referred By Salvatore t Referred To Contact [facility] Diagnoses Iron deficiency anemia, unspecified iron deficiency anemia type Positive fecal occult blood test Procedures EGD DIAGNOSTIC ESOPHAGOGASTRODUODENOSC OPY TRANSORAL DIAGNOSTIC Anisha Lindsey PA-C [address] [place] [address] [facility] [address] [place] [address] Referral ID Status Reason Start Date Expiration Date V isits Requested Visits Authorized [id number] Closed Auto-Generate d Referral 08/05/2022 08/05/2023 1 1 [facility] for visit Narrative* Diagnostic Procedure Only (Routine) - Closed Specialty Diagnoses / Procedures Referred By Salvatore t Referred To Contact [facility] Diagnoses Encounter for screening mammogram for breast cancer Procedures HILARY SCREENING SCREENING MAMMOGRAPHY BI 2-VIEW BREAST INC Talia Harris FINAL INSTALLER INSPECTOR.PUBLIC SERVICE ADMINISTRATOR [address] [place] [address] [facility] [address] [place] [address] Referral ID Status Reason Start Date Expiration Date V isits Requested Visits Authorized [id number] Closed Auto-Generate d Referral 07/24/2022 08/23/2023 1 1 [facility] for visit Narrative* Diagnostic Procedure Only (Routine) - Closed Specialty Diagnoses / Procedures Referred By Salvatore Referred To Contact [facility] Diagnoses Left groin pain Palpable mass of pelvis Procedures US PELVIS LTD US PELVIC NONOBSTETRIC IMAGE DCMTN LIMITED/F/U Kate Cervantes, FINAL INSTALLER INSPECTOR.PUBLIC SERVICE ADMINISTRATOR [address] [place] [address] [place] [address] Referral ID Status Reason Start Date Expiration Date V isits Requested Visits Authorized [id number] Closed Auto-Generate d Referral 03/04/2023 04/02/2024 1 1 [facility] for visit Narrative* Diagnostic Procedure Only (Routine) - Closed Specialty Diagnoses / Procedures Referred By Salvatore t Referred To Contact [facility] Diagnoses Encounter for screening mammogram for malignant neoplasm of breast Procedures HILARY SCREENING W OLAYINKA SCREENING DIGITAL BREAST TOMOSYNTHESIS BI SCREENING MAMMOGRAPHY BI 2-VIEW BREAST INC CAD Talia Hart, FINAL INSTALLER INSPECTOR.PUBLIC SERVICE ADMINISTRATOR [address] [place] [address] [facility] [address] [place] [address] Referral ID Status Reason Start Date Expiration Date V isits Requested Visits Authorized [id number] Closed Auto-Generate d Referral 08/01/2024 08/31/2025 1 1 [facility] Diagnostic Procedure Only (Routine) - Closed Specialty Diagnoses / Procedures Referred By Contac t Referred To Contact XR IMAGING Diagnoses Encounter for screening for osteoporosis Procedures DXA-AXIAL SKELETON DXA BONE DENSITY STUDY / SITES AXIAL Kelley Ramon, FINAL INSTALLER INSPECTOR.PUBLIC SERVICE ADMINISTRATOR [address] [place] [address] [place] [address] Referral ID Status Reason Start Date Expiration Date V isits Requested Visits Authorized [id number] Closed Auto-Generate d Referral 08/23/2024 09/22/2025 1 1 [facility] Summary Purpose Family History No Family History Records Found Relationship Condition Age at Onset Recorded Date/T chari mother Diabetes mellitus Unknown Myocardial infarction Unknown Coronary artery disease Unknown father Myocardial infarction Unknown sister Chronic obstructive pulmonary disease Unk nown Advance Directives No Advanced Directives Records Found Advance Directive Response Recorded Date/ Time Advance Directives No May 14 7:33am Living Will No December 24, 2021 2:23pm Power of Billing Machine Operator No December 24 2:23pm Advance Directive Response Recorded Date/ Time Advance Directives No May 14 7:33am Living Will No March 31, 2023 5:55pm Power of Billing Machine Operator No March 31 5:55pm Advance Directive Response Recorded Date/ Time Advance Directives No May 14 7:33am Living Will No March 31, 2023 8:38pm Power of Billing Machine Operator No March 31 8:38pm Advance Directive Response Recorded Date/ Time Advance Directives No May 14 6:33am Living Will No March 31, 2023 7:38pm Power of Billing Machine Operator No March 31 7:38pm Advance Directive Response Recorded Date/ Time Living Will No March 31, 2023 8:38pm Power of Billing Machine Operator No March 31 8:38pm Advance Directives No May 14 020 7:33am Chief Complaint and Reason for Visit Chief Complaint PER LAURA chest pain CP CP POST STRESS TEST Reason for Visit Palpitations Paroxysmal atrial fibrillation Atherosclerotic heart disease of [place] coronary artery without angina pectoris Mixed hyperlipidemia Presence of stent in coronary artery Chief Complaint PER LAURA chest pain CP CP POST STRESS TEST PALP Reason for Visit Palpitations Paroxysmal atrial fibrillation Atherosclerotic heart disease of [place] coronary artery without angina pectoris Mixed hyperlipidemia Presence of stent in coronary artery Chief Complaint Opioid dependence, u ncomplicated Chief Complaint Opioid dependence, u ncomplicated EORDERS/SOB ABLA Reason for Visit Anemia GI bleed Chief Complaint EORDERS/SOB ABLA ABLA PRE-SCOPE ABLA AM EKG ABLA ABLA ABLA ABLA PREOP 1 Y FU Reason for Visit ABLA (acute blood lo ss anemia) Anemia GI bleed Paroxysmal atrial fibrillation Mixed hyperlipidemia Chief Complaint Admit Date BACK PAIN, RX HERE September 15, 2024 3 :00pm LUMBAR RADICULPATHY October 23, 2024 1 2:55pm Reason for Referral Specialty Diagnoses / Procedures Referred By Contac t Referred To Contact General Surgery Diagnoses Anemia, unspecified type Positive fecal occult blood test Procedures CONSULT TO GENERAL SURGERY OFFICE[facility] Kate Cervantes APRN.PUBLIC SERVICE ADMINISTRATOR [address] [place] [address] Referral ID Status Reason Start Date Expiration Date Visits Requested Visits Authorized [id number] Pending Review PCP Requested Referral 2 07/27/2023 1 1 Specialty Diagnoses / Procedures Referred By Contac t Referred To Contact CT IMAGING Diagnoses Encounter for screening for lung cancer Tobacco abuse Procedures CT LUNG SCREEN WO IVCON COMPUTED TOMOGRAPHY THORAX LW DOSE LNG CA SCR Jimbo- Wojciech Carrero, FINAL INSTALLER INSPECTOR.PUBLIC SERVICE ADMINISTRATOR [address] [place] [address] [facility] [place] [address] Referral ID Status Reason Start Date Expiration Date Visits Requested Visits Authorized [id number] Authorized Auto-Generat ed Referral 11/1809/27/2025 1 1 Referral ID Status Reason Start Date Expiration Date V isits Requested Visits Authorized [id number] Closed Auto-Generate d Referral 08/28/2024 09/27/2025 1 1 Referral ID Status Reason Start Date Expiration Date Visits Requested Visits Authorized [id number] New Request Auto-Generat ed Referral 09/14/2024 10/14/2025 1 1 Medications Administered Section Inactive Administered Medications - up to 3 most recent administrations Medication Order MAR Action Action Date Dose Rate Site benzocaine 20% 1 [place] (TOPEX) 1 [place], TOPICAL, DIRECTED, Starting on Wed09/11/22 at 1200, Until Wed09/11/22 at 1559, DOSING DIRECTED BY PHYSICIAN FOR PROCEDURAL SEDATION ONLY - Pharmaceutical Waste: Aerosol -, Intraprocedure Given 09/11/2022 11:22 AM EST 5 Sprays diphenhydrAMINE 12.5-50 mg injection (BENADRYL) 12.5-50 mg, INTRAVENOUS, DIRECTED, Starting on Wed09/11/22 at 1200, Until Wed09/11/22 at 1559, DOSING DIRECTED BY PHYSICIAN FOR PROCEDURAL SEDATION ONLY, Intraprocedure Given 09/11/2022 11:25 AM EST 50 mg fentaNYL 50 mcg/mL 25-100 mcg injection (SUBLIMAZE) 25-100 mcg, INTRAVENOUS, DIRECTED, Starting on Wed09/11/22 at 1200, Until Wed09/11/22 at 1559, DOSING DIRECTED BY PHYSICIAN FOR PROCEDURAL SEDATION ONLY, Intraprocedure Given 09/11/2022 11:39 AM EST 50 mcg Given 09/11/2022 11:23 AM EST 50 mcg lactated ringers iv infusion 75 mL/hr, INTRAVENOUS, CONTINUOUS, Starting on Wed09/11/22 at 1100, Until Wed09/11/22 at 1204, Preprocedure New Bag/Syringe/Bottle 09/11/2022 11:07 AM EST 75 mL/hr 75 mL/hr Forearm, Right midazolam (PF) 1-5 mg injection (VERSED) 1-5 mg, INTRAVENOUS, DIRECTED, Starting on Wed09/11/22 at 1200, Until Wed09/11/22 at 1559, DOSING DIRECTED BY PHYSICIAN FOR PROCEDURAL SEDATION ONLY, Intraprocedure Given 09/11/2022 11:36 AM EST 2 mg Given 09/11/2022 11:23 AM EST 3 mg Additional Source Comments INFORMATION SOURCE (unrecogn ized section and content) DATE CREATED AUTHOR 07/16/2019 [facility] ([place]) DATE CREATED AUTHOR AUTHOR'S ORGANIZ ATION 03/26/2023 [facility] DATE CREATED AUTHOR AUTHOR'S ORGANIZ ATION 01/16/2025 [facility] DATE CREATED AUTHOR AUTHOR'S ORGANIZ ATION 08/23/2025 [facility] [place] Goals (unrecognized section and content) Goals may be documented in a n alternate sectionGoals may be documented in an alternate sectionGoals may be documented in an alternate sectionGoals may be documented in an alternate sectionGoals may be documented in an alternate sectionGoals may be documented in an alternate sectionGoals may be documented in an alternate section Source Comments (unrecognize d section and content) In the event this informatio n is protected by the Federal Confidentiality of Alcohol and Drug Abuse Patient Records regulations: The Federal rules restrict any use of the information to criminally investigate or prosecute any alcohol or drug abuse patient.[facility] Hospital[facility] the event this information is protected by the Federal Confidentiality of Alcohol and Drug Abuse Patient Records regulations: The Federal rules restrict any use of the information to criminally investigate or prosecute any alcohol or drug abuse patient.[facility] Hospital[facility] the event this information is protected by the Federal Confidentiality of Alcohol and Drug Abuse Patient Records regulations: The Federal rules restrict any use of the information to criminally investigate or prosecute any alcohol or drug abuse patient.[facility] HospitalIn the event this information is protected by the Federal Confidentiality of Alcohol and Drug Abuse Patient Records regulations: The Federal rules restrict any use of the information to criminally investigate or prosecute any alcohol or drug abuse patient.[facility] HospitalIn the event this information is protected by the Federal Confidentiality of Alcohol and Drug Abuse Patient Records regulations: The Federal rules restrict any use of the information to criminally investigate or prosecute any alcohol or drug abuse patient.[facility] HospitalIn the event this information is protected by the Federal Confidentiality of Alcohol and Drug Abuse Patient Records regulations: The Federal rules restrict any use of the information to criminally investigate or prosecute any alcohol or drug abuse patient.[facility] HospitalIn the event this information is protected by the Federal Confidentiality of Alcohol and Drug Abuse Patient Records regulations: The Federal rules restrict any use of the information to criminally investigate or prosecute any alcohol or drug abuse patient.[facility] HospitalIn the event this information is protected by the Federal Confidentiality of Alcohol and Drug Abuse Patient Records regulations: The Federal rules restrict any use of the information to criminally investigate or prosecute any alcohol or drug abuse patient.[facility] HospitalIn the event this information is protected by the Federal Confidentiality of Alcohol and Drug Abuse Patient Records regulations: The Federal rules restrict any use of the information to criminally investigate or prosecute any alcohol or drug abuse patient.[facility] HospitalIn the event this information is protected by the Federal Confidentiality of Alcohol and Drug Abuse Patient Records regulations: The Federal rules restrict any use of the information to criminally investigate or prosecute any alcohol or drug abuse patient.[facility] HospitalIn the event this information is protected by the Federal Confidentiality of Alcohol and Drug Abuse Patient Records regulations: The Federal rules restrict any use of the information to criminally investigate or prosecute any alcohol or drug abuse patient.[facility] HospitalIn the event this information is protected by the Federal Confidentiality of Alcohol and Drug Abuse Patient Records regulations: The Federal rules restrict any use of the information to criminally investigate or prosecute any alcohol or drug abuse patient.[facility] HospitalIn the event this information is protected by the Federal Confidentiality of Alcohol and Drug Abuse Patient Records regulations: The Federal rules restrict any use of the information to criminally investigate or prosecute any alcohol or drug abuse patient.[facility] HospitalIn the event this information is protected by the Federal Confidentiality of Alcohol and Drug Abuse Patient Records regulations: The Federal rules restrict any use of the information to criminally investigate or prosecute any alcohol or drug abuse patient.[facility] HospitalIn the event this information is protected by the Federal Confidentiality of Alcohol and Drug Abuse Patient Records regulations: The Federal rules restrict any use of the information to criminally investigate or prosecute any alcohol or drug abuse patient.[facility] HospitalIn the event this information is protected by the Federal Confidentiality of Alcohol and Drug Abuse Patient Records regulations: The Federal rules restrict any use of the information to criminally investigate or prosecute any alcohol or drug abuse patient.[facility] HospitalIn the event this information is protected by the Federal Confidentiality of Alcohol and Drug Abuse Patient Records regulations: The Federal rules restrict any use of the information to criminally investigate or prosecute any alcohol or drug abuse patient.[facility] HospitalIn the event this information is protected by the Federal Confidentiality of Alcohol and Drug Abuse Patient Records regulations: The Federal rules restrict any use of the information to criminally investigate or prosecute any alcohol or drug abuse patient.[facility] HospitalIn the event this information is protected by the Federal Confidentiality of Alcohol and Drug Abuse Patient Records regulations: The Federal rules restrict any use of the information to criminally investigate or prosecute any alcohol or drug abuse patient.[facility] HospitalIn the event this information is protected by the Federal Confidentiality of Alcohol and Drug Abuse Patient Records regulations: The Federal rules restrict any use of the information to criminally investigate or prosecute any alcohol or drug abuse patient.[facility] HospitalIn the event this information is protected by the Federal Confidentiality of Alcohol and Drug Abuse Patient Records regulations: The Federal rules restrict any use of the information to criminally investigate or prosecute any alcohol or drug abuse patient.[facility] HospitalIn the event this information is protected by the Federal Confidentiality of Alcohol and Drug Abuse Patient Records regulations: The Federal rules restrict any use of the information to criminally investigate or prosecute any alcohol or drug abuse patient.[facility] HospitalIn the event this information is protected by the Federal Confidentiality of Alcohol and Drug Abuse Patient Records regulations: The Federal rules restrict any use of the information to criminally investigate or prosecute any alcohol or drug abuse patient.[facility] HospitalIn the event this information is protected by the Federal Confidentiality of Alcohol and Drug Abuse Patient Records regulations: The Federal rules restrict any use of the information to criminally investigate or prosecute any alcohol or drug abuse patient.[facility] HospitalIn the event this information is protected by the Federal Confidentiality of Alcohol and Drug Abuse Patient Records regulations: The Federal rules restrict any use of the information to criminally investigate or prosecute any alcohol or drug abuse patient.[facility] HospitalIn the event this information is protected by the Federal Confidentiality of Alcohol and Drug Abuse Patient Records regulations: The Federal rules restrict any use of the information to criminally investigate or prosecute any alcohol or drug abuse patient.[facility] HospitalIn the event this information is protected by the Federal Confidentiality of Alcohol and Drug Abuse Patient Records regulations: The Federal rules restrict any use of the information to criminally investigate or prosecute any alcohol or drug abuse patient.[facility] HospitalIn the event this information is protected by the Federal Confidentiality of Alcohol and Drug Abuse Patient Records regulations: The Federal rules restrict any use of the information to criminally investigate or prosecute any alcohol or drug abuse patient.[facility] HospitalIn the event this information is protected by the Federal Confidentiality of Alcohol and Drug Abuse Patient Records regulations: The Federal rules restrict any use of the information to criminally investigate or prosecute any alcohol or drug abuse patient.[facility] HospitalIn the event this information is protected by the Federal Confidentiality of Alcohol and Drug Abuse Patient Records regulations: The Federal rules restrict any use of the information to criminally investigate or prosecute any alcohol or drug abuse patient.[facility] HospitalIn the event this information is protected by the Federal Confidentiality of Alcohol and Drug Abuse Patient Records regulations: The Federal rules restrict any use of the information to criminally investigate or prosecute any alcohol or drug abuse patient.[facility] HospitalIn the event this information is protected by the Federal Confidentiality of Alcohol and Drug Abuse Patient Records regulations: The Federal rules restrict any use of the information to criminally investigate or prosecute any alcohol or drug abuse patient.[facility] HospitalIn the event this information is protected by the Federal Confidentiality of Alcohol and Drug Abuse Patient Records regulations: The Federal rules restrict any use of the information to criminally investigate or prosecute any alcohol or drug abuse patient.[facility] HospitalIn the event this information is protected by the Federal Confidentiality of Alcohol and Drug Abuse Patient Records regulations: The Federal rules restrict any use of the information to criminally investigate or prosecute any alcohol or drug abuse patient.[facility] HospitalIn the event this information is protected by the Federal Confidentiality of Alcohol and Drug Abuse Patient Records regulations: The Federal rules restrict any use of the information to criminally investigate or prosecute any alcohol or drug abuse patient.[facility] HospitalIn the event this information is protected by the Federal Confidentiality of Alcohol and Drug Abuse Patient Records regulations: The Federal rules restrict any use of the information to criminally investigate or prosecute any alcohol or drug abuse patient.[facility] HospitalIn the event this information is protected by the Federal Confidentiality of Alcohol and Drug Abuse Patient Records regulations: The Federal rules restrict any use of the information to criminally investigate or prosecute any alcohol or drug abuse patient.[facility] HospitalIn the event this information is protected by the Federal Confidentiality of Alcohol and Drug Abuse Patient Records regulations: The Federal rules restrict any use of the information to criminally investigate or prosecute any alcohol or drug abuse patient.[facility] HospitalIn the event this information is protected by the Federal Confidentiality of Alcohol and Drug Abuse Patient Records regulations: The Federal rules restrict any use of the information to criminally investigate or prosecute any alcohol or drug abuse patient.[facility] HospitalIn the event this information is protected by the Federal Confidentiality of Alcohol and Drug Abuse Patient Records regulations: The Federal rules restrict any use of the information to criminally investigate or prosecute any alcohol or drug abuse patient.[facility] HospitalIn the event this information is protected by the Federal Confidentiality of Alcohol and Drug Abuse Patient Records regulations: The Federal rules restrict any use of the information to criminally investigate or prosecute any alcohol or drug abuse patient.[facility] HospitalIn the event this information is protected by the Federal Confidentiality of Alcohol and Drug Abuse Patient Records regulations: The Federal rules restrict any use of the information to criminally investigate or prosecute any alcohol or drug abuse patient.[facility] HospitalIn the event this information is protected by the Federal Confidentiality of Alcohol and Drug Abuse Patient Records regulations: The Federal rules restrict any use of the information to criminally investigate or prosecute any alcohol or drug abuse patient.[facility] HospitalIn the event this information is protected by the Federal Confidentiality of Alcohol and Drug Abuse Patient Records regulations: The Federal rules restrict any use of the information to criminally investigate or prosecute any alcohol or drug abuse patient.[facility] HospitalIn the event this information is protected by the Federal Confidentiality of Alcohol and Drug Abuse Patient Records regulations: The Federal rules restrict any use of the information to criminally investigate or prosecute any alcohol or drug abuse patient.[facility] HospitalIn the event this information is protected by the Federal Confidentiality of Alcohol and Drug Abuse Patient Records regulations: The Federal rules restrict any use of the information to criminally investigate or prosecute any alcohol or drug abuse patient.[facility] HospitalIn the event this information is protected by the Federal Confidentiality of Alcohol and Drug Abuse Patient Records regulations: The Federal rules restrict any use of the information to criminally investigate or prosecute any alcohol or drug abuse patient.[facility] HospitalIn the event this information is protected by the Federal Confidentiality of Alcohol and Drug Abuse Patient Records regulations: The Federal rules restrict any use of the information to criminally investigate or prosecute any alcohol or drug abuse patient.[facility] HospitalIn the event this information is protected by the Federal Confidentiality of Alcohol and Drug Abuse Patient Records regulations: The Federal rules restrict any use of the information to criminally investigate or prosecute any alcohol or drug abuse patient.[facility] HospitalIn the event this information is protected by the Federal Confidentiality of Alcohol and Drug Abuse Patient Records regulations: The Federal rules restrict any use of the information to criminally investigate or prosecute any alcohol or drug abuse patient.[facility] HospitalIn the event this information is protected by the Federal Confidentiality of Alcohol and Drug Abuse Patient Records regulations: The Federal rules restrict any use of the information to criminally investigate or prosecute any alcohol or drug abuse patient.[facility] HospitalIn the event this information is protected by the Federal Confidentiality of Alcohol and Drug Abuse Patient Records regulations: The Federal rules restrict any use of the information to criminally investigate or prosecute any alcohol or drug abuse patient.[facility] HospitalIn the event this information is protected by the Federal Confidentiality of Alcohol and Drug Abuse Patient Records regulations: The Federal rules restrict any use of the information to criminally investigate or prosecute any alcohol or drug abuse patient.[facility] Reason for Visit (unrecogniz ed section and content) Reason Onset Date Comments Refill Request 03/26/2022 Reason Comments Refill Request Reason Onset Date Comments Medicare Wellness Exam Medicare Wellness exam Immunizations 06/26/2022 Flu vaccination Reason Comments Results Reason Comments Well Woman Reason Comments Results Reason Comments Imm/Inj Reason Onset Date Comments Refill Request 09/04/2022 Reason Comments 09/11 colon/egd asc Reason Comments Follow Up Follow up EGD and co lonoscopy Reason Comments F/U 6 months Weight Problem weight has slowly go ne up since senior living. abeominal pain right upper quad and describes it as achy for about 4 months. Reason Comments Patient Update Results Reason Comments Hospital F/U Reason Comments Rash legs and arms x 5 da ys, denies itch and pain Reason Comments Recheck rash denies it being itchyupper thighs and trunk Reason Comments Orders Reason Comments Follow Up needs letter to d/c O2, fax to [facility] [phone] Reason Onset Date Comments Refill Request 07/22/2023 needs today Reason Comments Radiology US Specialty Diagnoses / Procedures Referred By Salvatore cortez Referred To Contact [facility] Diagnoses Right upper quadrant abdominal tenderness without rebound tenderness Procedures US ABD RIGHT UPPER QUADRANT US ABDOMINAL REAL TIME W/IMAGE LIMITED Brook Horner MD [address] [place] [address] [place] [address] Referral ID Status Reason Start Date Expiration Date V isits Requested Visits Authorized [id number] Closed Auto-Generate d Referral 01/04/2023 02/03/2024 1 1 Reason Comments Follow Up refills needed, ques tion about sleeping pill alondra to cutting them in half Reason Onset Date Comments Population Health Navigation Outreach 12/17/2023 [facility] Annual Wellness Visit Reason Comments Follow Up 4 months Reason Onset Date Comments Population Health Navigation Outreach 05/31/2024 [facility] WORKBENCH [place]/INDP Reason Onset Date Comments Medicare Wellness Exam Annual Me dicare wellness Immunizations 08/16/2024 Flu vaccination Reason Comments Well Woman Reason Comments Radiology CT Specialty Diagnoses / Procedures Referred By Contac t Referred To Contact CT IMAGING Diagnoses Encounter for screening for lung cancer Tobacco abuse Procedures CT LUNG SCREEN WO IVCON COMPUTED TOMOGRAPHY THORAX LW DOSE LNG CA SCR [place], Wojciech, FINAL INSTALLER INSPECTOR.PUBLIC SERVICE ADMINISTRATOR [id number] [facility] [place] [address] Referral ID Status Reason Start Date Expiration Date V isits Requested Visits Authorized [id number] Closed Auto-Generate d Referral 08/28/2024 09/27/2025 1 1 Reason Comments Recheck 6 month follow up Reason Comments Med Change Request Reason Comments Spirometry Specialty Diagnoses / Procedures Referred By Contac t Referred To Contact [facility] Diagnoses Chronic obstructive pulmonary disease, unspecified COPD type (HCC) Procedures SPIROMETRY WITH DILATOR IF OBSTRUCTED BRNCDILAT RSPSE SPMTRY PRE&POST-BRNCDILAT ADMN Lia Garibay MD [address] [place] [address] Phone: tel: fax: [facility] [place] [address] [place] [address] Referral ID Status Reason Start Date Expiration Date V isits Requested Visits Authorized [id number] Closed Auto-Generate d Referral 06/01/2025 07/01/2026 1 1 Specialty Diagnoses / Procedures Referred By Contac t Referred To Contact [facility] Diagnoses Chronic obstructive pulmonary disease, unspecified COPD type (HCC) Procedures LUNG DIFFUSION CAPACITY (DLCO) DIFFUSING CAPACITY Lia Garibay MD [address] [place] [address] Phone: tel: fax: [facility] [address] [address] Referral ID Status Reason Start Date Expiration Date V isits Requested Visits Authorized [id number] Closed Auto-Generate d Referral 06/01/2025 07/01/2026 1 1 Reason Comments New Patient COPD Care Teams (unrecognized sec tion and content) Sea Kayaking Guide Relationship Specialty Start Date End Date Brook Horner MD [address] [place] [address] PCP - General Internal Medicine 02/15/15 Sea Kayaking Guide Relationship Specialty Start Date End Date Brook Horner MD [address] [place] [address] PCP - General Internal Medicine 02/15/15 Sea Kayaking Guide Relationship Specialty Start Date End Date Brook Horner MD [address] [place] [address] PCP - General Internal Medicine 02/15/15 Sea Kayaking Guide Relationship Specialty Start Date End Date Brook Horner MD [address] [place] [address] PCP - General Internal Medicine 02/15/15 Sea Kayaking Guide Relationship Specialty Start Date End Date Brook Horner MD [address] [place] [address] PCP - General Internal Medicine 02/15/15 Sea Kayaking Guide Relationship Specialty Start Date End Date Brook Horner MD [address] [place] [address] PCP - General Internal Medicine 02/15/15 Sea Kayaking Guide Relationship Specialty Start Date End Date Brook Horner MD [address] [place] [address] PCP - General Internal Medicine 02/15/15 Sea Kayaking Guide Relationship Specialty Start Date End Date Brook Horner MD [address] [place] [address] PCP - General Internal Medicine 02/15/15 Sea Kayaking Guide Relationship Specialty Start Date End Date Brook Horner MD [address] [place] [address] PCP - General Internal Medicine 02/15/15 Sea Kayaking Guide Relationship Specialty Start Date End Date Brook Horner MD [address] [place] [address] PCP - General Internal Medicine 02/15/15 Sea Kayaking Guide Relationship Specialty Start Date End Date Brook Horner MD [address] [place] [address] PCP - General Internal Medicine 02/15/15 Sea Kayaking Guide Relationship Specialty Start Date End Date Brook Horner MD [address] [place] [address] PCP - General Internal Medicine 02/15/15 Sea Kayaking Guide Relationship Specialty Start Date End Date Brook Horner MD [address] [place] [address] PCP - General Internal Medicine 02/15/15 Team Status: Active Member Role Status Dates Dr. Brook Horner MD Family Provider Active Dr. Brook Horner MD Primary Care Provider Active Team Status: Inactive Member Role Status Dates Dr. Brook Horner MD Primary Care Provider Active Dr. Simone Arroela MD Attending Provider Active Team Status: Inactive Member Role Status Dates Dr. Brook Horner MD Primary Care Provider Active Dr. Simone Arreola MD Attending Provider, Referring Pr ovider Active Team Status: Active Member Role Status Dates Dr. Brook Horner MD Primary Care Provider Active Micki Jo FRESH FOODS CLERK, FRESH FOODS CLERK-C Attending Provider, Referring P daja Active Team Status: Active Member Role Status Dates Dr. Brook Horner MD Primary Care Provider Active Dr. Kina South MD Emergency Provider Active Dr. Cesar Rodriguez MD Admit Provider, Attending Pro vider Active Sea Kayaking Guide Relationship Specialty Start Date End Date Brook Horner MD [address] [place] [address] PCP - General Internal Medicine 02/15/15 Sea Kayaking Guide Relationship Specialty Start Date End Date Brook Horner MD [address] [place] [address] PCP - General Internal Medicine 02/15/15 Sea Kayaking Guide Relationship Specialty Start Date End Date Brook Horner MD [address] [place] [address] PCP - General Internal Medicine 02/15/15 Sea Kayaking Guide Relationship Specialty Start Date End Date Brook Horner MD [address] [place] [address] PCP - General Internal Medicine 02/15/15 Sea Kayaking Guide Relationship Specialty Start Date End Date Brook Horner MD [address] [place] [address] PCP - General Internal Medicine 02/15/15 Sea Kayaking Guide Relationship Specialty Start Date End Date Brook Horner MD [address] [place] [address] PCP - General Internal Medicine 02/15/15 Team Status: Inactive Member Role Status Dates Dr. Brook Horner MD Primary Care Provider, Referring Provider Active Micki Jo FRESH FOODS CLERK, FRESH FOODS CLERK-C Attending Provider Active Team Status: Active Member Role Status Dates Dr. Brook Horner MD Primary Care Provider Active Dr. Kina South MD Emergency Provider Active Dr. Cesar Rodriguez MD Admit Provider, Other Provide r Active Dr. Marcell Hill DO Attending Provider, Other Prov ider Active Dr. Gustavo Fuentes MD Referring Provider Active Team Status: Active Member Role Status Dates Dr. Brook Horner MD Primary Care Provider Active Dr. Marcell Hill DO Attending Provider Active Dr. Gustavo Fuentes MD Referring Provider Active Team Status: Active Member Role Status Dates Dr. Brook Horner MD Primary Care Provider Active Dr. Kina South MD Emergency Provider Active Dr. Cesar Rodriguez MD Admit Provider, Other Provide r Active Dr. Marcell Friend , DO Other Provider Active Dr. Gustavo Fuentes MD Attending Provider, Other Provider Active Team Status: Active Member Role Status Dates Dr. Broko Horner MD Primary Care Provider Active Dr. Kina South MD Emergency Provider Active Dr. Cesar Rodriguez MD Admit Provider, Other Provide r Active Dr. Marcell Hill , DO Attending Provider, Other Prov ider Active Dr. Gustavo Fuentes MD Referring Provider, Other Provider Active Team Status: Active Member Role Status Dates Dr. Brook Horner MD Primary Care Provider Active Dr. Kenia Ramos MD Attending Provider Active Dr. Cesar Rodriguez MD Referring Provider Active Team Status: Active Member Role Status Dates Dr. Brook Horner MD Primary Care Provider Active Dr. Kenia Ramos MD Attending Provider, Referring Pr ovider Active Team Status: Active Member Role Status Dates Dr. Brook Horner MD Primary Care Provider Active Dr. Moi Mcneill MD Attending Provider, Referring Pro vider Active Team Status: Inactive Member Role Status Dates Dr. Brook Horner MD Primary Care Provider Active Micki Jo FRESH FOODS CLERK, FRESH FOODS CLERK-C Attending Provider, Referring P rovider Active Team Status: Inactive Member Role Status Dates Dr. Brook Horner MD Primary Care Provider Active Dr. Kina Souht MD Emergency Provider Active Dr. Cesar Rodriguez MD Admit Provider, Other Provide r Active Dr. Marcell Hill , DO Other Provider Active Dr. Gustavo Fuentes MD Attending Provider Active Sea Kayaking Guide Relationship Specialty Start Date End Date Brook Horner MD [address] [place] [address] PCP - General Internal Medicine 02/15/15 Sea Kayaking Guide Relationship Specialty Start Date End Date Brook Horner MD [address] [place] [address] PCP - General Internal Medicine 02/15/15 Sea Kayaking Guide Relationship Specialty Start Date End Date Brook Horner MD [address] [place], [place] [address] PCP - General Internal Medicine 02/15/15 Sea Kayaking Guide Relationship Specialty Start Date End Date Brook Horner MD [address] [place] [address] PCP - General Internal Medicine 02/15/15 Sea Kayaking Guide Relationship Specialty Start Date End Date Brook Horner MD [address] [place] [address] PCP - General Internal Medicine 02/15/15 Sea Kayaking Guide Relationship Specialty Start Date End Date Brook Horner MD [address] [place] [address] PCP - General Internal Medicine 02/15/15 Sea Kayaking Guide Relationship Specialty Start Date End Date Brook Horner MD [address] [place] [address] PCP - General Internal Medicine 02/15/15 Sea Kayaking Guide Relationship Specialty Start Date End Date Brook Horner MD [address] [place] [address] PCP - General Internal Medicine 02/15/15 Sea Kayaking Guide Relationship Specialty Start Date End Date Brook Horner MD [address] [place] [address] PCP - General Internal Medicine 02/15/15 Sea Kayaking Guide Relationship Specialty Start Date End Date Brook Horner MD [address] [place] [address] PCP - General Internal Medicine 02/15/15 Sea Kayaking Guide Relationship Specialty Start Date End Date Brook Horner MD [address] [place] [address] PCP - General Internal Medicine 02/15/15 Sea Kayaking Guide Relationship Specialty Start Date End Date Brook Horner MD [address] [place] [address] PCP - General Internal Medicine 02/15/15 Sea Kayaking Guide Relationship Specialty Start Date End Date Brook Horner MD [address] [place] [address] PCP - General Internal Medicine 02/15/15 Sea Kayaking Guide Relationship Specialty Start Date End Date Brook Horner MD [address] [place] [address] PCP - General Internal Medicine 02/15/15 Sea Kayaking Guide Relationship Specialty Start Date End Date Brook Horner MD [address] [place] [address] PCP - General Internal Medicine 02/15/15 Katey Dudley PA-C [address] [place] [address] Economics Teacher Family Medicine 09/17/24 Kate Cervantes APRN.CNP [address] [place] [address] Economics Teacher Internal Medicine 09/17/24 Yari Bailey PA-C [address] [place] [address] Economics Teacher Family Medicine 09/17/24 Team Status: Inactive Member Role Status Dates Dr. Brook Horner MD Primary Care Provider Active Start: September 15, 2024 End: September 15, 2024 Dr. Simone Arreola MD Attending Provider Active Start: September 15, 2024 End: September 15, 2024 Dr. Simone Arreola MD Referring Provider Active Start: September 15, 2024 End: September 15, 2024 Team Status: Inactive Member Role Status Dates Dr. Brook Horner MD Primary Care Provider Active Start: October 23, 2024 End: October 23, 2024 Dr. Simone Arreola MD Attending Provider Active Start: October 23, 2024 End: October 23, 2024 Dr. Simone Arreola MD Referring Provider Active Start: October 23, 2024 End: October 23, 2024 Team Status: Inactive Member Role Status Dates Dr. Brook Horner MD Primary Care Provider Active Start: December 06, 2024 End: December 06, 2024 Dr. Simone Arreola MD Attending Provider Active Start: December 06, 2024 End: December 06, 2024 Dr. Simone Arreola MD Referring Provider Active Start: December 06, 2024 End: December 06, 2024 Sea Kayaking Guide Relationship Specialty Start Date End Date Brook Horner MD [address] [place] [address] PCP - General Internal Medicine 02/15/15 Kate Cervantes APRN.PUBLIC SERVICE ADMINISTRATOR [address] [place] [address] Economics Teacher Internal Medicine 09/17/24 Sea Kayaking Guide Relationship Specialty Start Date End Date Brook Horner MD [address] [place] [address] PCP - General Internal Medicine 02/15/15 Kate Cervantes APRN.PUBLIC SERVICE ADMINISTRATOR [address] [place] [address] Economics Teacher Internal Medicine 09/17/24 Sea Kayaking Guide Relationship Specialty Start Date End Date Brook Horner MD [address] [place] [address] PCP - General Internal Medicine 02/15/15 Kate Cervantes APRN.PUBLIC SERVICE ADMINISTRATOR [address] [facility] [place] [address] Economics Teacher Internal Medicine 09/17/24 Sea Kayaking Guide Relationship Specialty Start Date End Date Brook Horner MD [address] [place] [address] PCP - General Internal Medicine 02/15/15 Kate Cervantes APRN.PUBLIC SERVICE ADMINISTRATOR [address] [place] [address] Economics Teacher Internal Medicine 09/17/24 Sea Kayaking Guide Relationship Specialty Start Date End Date Brook Horner MD [address] [place] [address] PCP - General Internal Medicine 02/15/15 Kate Cervantes APRN.PUBLIC SERVICE ADMINISTRATOR [address] [place] [address] Economics Teacher Internal Medicine 09/17/24 Sea Kayaking Guide Relationship Specialty Start Date End Date Brook Horner MD [address] [place] [address] PCP - General Internal Medicine 02/15/15 Kate Cervantes APRN.PUBLIC SERVICE ADMINISTRATOR [address] [place] [address] [facility] Internal Medicine 09/17/24 FOR RECORDS PERTAINING TO PATIENTS WHO ARE OR HAVE BEEN ENROLLED IN A CHEMICAL DEPENDENCY/SUBSTANCEABUSE PROGRAM, SOME INFORMATION MAY BE OMITTED. This clinical summary was aggregated from multiple sources. Caution should be exercised in using it in the provision of clinical care. This summary normalizes information from multiple sources, and as a consequence, information in this document may materially change the coding, format and clinical context of patient data. In addition, data may be omitted in some cases. CLINICAL DECISIONS SHOULD BE BASED ON THE PRIMARY CLINICAL RECORDS. [employer] [facility]. provides no warranty or guarantee of the accuracy or completeness of information in this document.
[2025-09-28 12:51] LABS: AST(SGOT) 19 U/L (<=31); Alanine Aminotransfer ALT/SGPT 13 U/L (<=34); Albumin, Serum 4.2 g/dL (3.4-4.8); Alkaline Phosphatase 81 U/L (35-104); Bilirubin, Direct 0.11 mg/dL (0.00-0.30); Cholesterol 222 mg/dL (<=200); Globulin 2.6 g/dL (2.2-4.2); Low Density Lipoprotein Calc. 118 mg/dL; Triglycerides 343 mg/dL; Very Low Density Lipoprotein 69 mg/dL (5-40); cholesterol:hdl ratio screen 4.99
== END | disposition home or self-care (01) ==
LOC: LAB 11:51
PROVIDERS: PCP Internal Medicine; Referring Provider Student in an Organized Health Care Education/Training Program; Visit Provider Student in an Organized Health Care Education/Training Program
DX: E78.2 Mixed hyperlipidemia (principal); I48.0 Paroxysmal atrial fibrillation
CPT/HCPCS: 36415; 80061; 80076; 85025